=== PATIENT | male | born 1935 | race Caucasian/White ===

== ENCOUNTER 2021-10-23 17:08 | Inpatient (IN) | payer MEDICARE, SELFPAY ==
--- NOTE | 2021-10-23 | ECG_ITS ---
Test Reason : DIZZINESS Blood Pressure : / mmHG Vent. Rate : 067 BPM Atrial Rate : 043 BPM P-R Int : 000 ms QRS Dur : 184 ms QT Int : 492 ms P-R-T Axes : 000 026 102 degrees QTc Int : 519 ms Ventricular-paced rhythm Possible underlying AF Abnormal ECG No previous ECGs available Referred By: Quintin Rome Electronically Signed By:DWAYNE MARION MD
--- NOTE | ~2021-10-23 | MR_ITS ---
MRI OF THE BRAIN WITHOUT IV CONTRAST INDICATION: Dizziness/ataxia/posterior stroke. COMPARISON: Head CT 10/24/2021. TECHNIQUE: Multiplanar multisequence MR imaging of the brain was obtained without IV contrast. FINDINGS: There are a few small acute to subacute appearing infarcts within the anterior right frontal white matter on image 25 of series 4 in the posterior right periventricular white matter on image 21 of series 4. There may be a few punctate acute to subacute infarcts within the high right middle frontal gyrus as well. No mass effect and no hemorrhagic transformation. There is global cerebral volume loss, there is moderate chronic microangiopathy, and there are chronic infarcts within the left cerebellum in the basal ganglia bilaterally. 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 There is a more prominent focus of susceptibility signal within the left frontal lobe on image 19 of series 6 that could reflect a focus of chronic hemosiderin staining or a small cavernoma. There is no hydrocephalus, extra-axial surface collection, or herniation. The major flow voids at the skull base are preserved. There is no intracranial hemorrhage on the gradient recalled echo acquisition. The midline structures are normal. The cerebellar tonsils are normally positioned. The cerebellum and brainstem are normal. The craniocervical junction is normal. Osseous marrow signal intensity is homogenous. There are partial right parotidectomy changes. There is a diffusion restricting cyst within the inferior aspect of the right auricle that could reflect a sebaceous cyst or other complex cyst. MR/MR head/brain wo con IMPRESSION: - There are a few small acute to subacute appearing infarcts within the anterior right frontal white matter on image 25 of series 4 in the posterior right periventricular white matter on image 21 of series 4. There may be a few punctate acute to subacute infarcts within the high right middle frontal gyrus as well. No mass effect and no hemorrhagic transformation. - There is global cerebral volume loss, there is moderate chronic microangiopathy, and there are chronic infarcts within the left cerebellum in the basal ganglia bilaterally. 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 There is a more prominent focus of susceptibility signal within the left frontal lobe on image 19 of series 6 that could reflect a focus of chronic hemosiderin staining or a small cavernoma. - There is a diffusion restricting cyst within the inferior aspect of the right auricle that could reflect a sebaceous cyst or other complex cyst. Covering provider paged with these findings at 8:57 AM on 10/28/2021.
--- NOTE | ~2021-10-23 | CT_ITS ---
EXAMINATION: CT HEAD WITHOUT CONTRAST CLINICAL INFORMATION: Dizziness since yesterday. COMPARISON: CT brain 10/23/2021. TECHNIQUE: Contiguous axial imaging was performed from the skull base to vertex without intravenous administration of contrast. This CT examination was performed using dose optimization techniques as appropriate, variously including the following: *Automated exposure control *Adjustment of mA and/or kV according to patient size (this includes techniques or standardized protocols for targeted exams where dose is matched to indication/reason for exam; i.e. extremities or head) *Use of iterative reconstruction technique DLP: 679 mGy-cm FINDINGS: There is no evidence of acute intra-axial, extra-axial bleed, masses or midline shift. There is no acute infarction evolution. There is hypodensity seen in bilateral internal capsule likely a lacunar infarction. The ventricles are symmetrical in size and configuration with mild enlargement. There is mild periventricular hypodensity in both cerebral hemispheres without mass effect. Bone windows reveal no calvarial abnormality. Bilateral paranasal sinuses and mastoid air cells are well aerated. There is no scalp soft tissue swelling seen. CT/CT head/brain wo con IMPRESSION: No acute intracranial process seen Small lacunar infarction bilateral internal capsule is unchanged to previous exam 10/23/2021. There is chronic cerebral volume loss.
--- NOTE | ~2021-10-23 | CT_ITS ---
EXAMINATION: CT HEAD WITHOUT CONTRAST CLINICAL INFORMATION: Slurred speech. COMPARISON: None. TECHNIQUE: Contiguous axial imaging was performed from the skull base to vertex without intravenous contrast. This CT examination was performed using dose optimization techniques as appropriate, variously including the following: * Automated exposure control * Adjustment of mA and/or kV according to patient size (this includes techniques or standardized protocols for targeted exams where dose is matched to indication/reason for exam; i.e. extremities or head) Use of iterative reconstruction technique DLP: 708 mGy-cm. FINDINGS: There is no evidence of acute intracranial hemorrhage or territorial infarction. No abnormal mass effect or midline shift is seen. [place] to white matter differentiation is well preserved. No extra-axial fluid collections are identified. No hydrocephalus. Proportional prominence of the ventricles and sulcal spaces is consistent with moderate volume loss. Patchy periventricular and deep white matter hypoattenuation is consistent with moderate small vessel ischemic changes. Right basal ganglia and left internal capsule chronic lacunar infarcts. The osseous structures and soft tissues are normal. The mastoid air cells and visualized portions of the paranasal sinuses are well aerated. CT/CT head/brain wo con IMPRESSION: No acute intracranial pathology. Chronic volume loss with small vessel ischemic changes. Chronic lacunar infarcts. This critical result was discussed with ANAYELI Ryder by telephone at 10/23/2021 6:34 PM and it was ascertained that the content and urgency of the report was understood at the time of direct communication.
--- NOTE | ~2021-10-23 | CT_ITS ---
EXAMINATION: CT ANGIOGRAM NECK WITH CONTRAST CT ANGIOGRAM BRAIN WITH CONTRAST CLINICAL INFORMATION: Dizzy. Gait disturbance. COMPARISON: Head CT 10/23/2021. TECHNIQUE: Test bolus sequences followed by intravenous administration 100 mL of Omnipaque 350. Helical imaging was performed in the axial plane from the thoracic inlet to the skull vertex. Delayed postcontrast imaging of the head was also performed. The data was processed at the human performance technologist workstation for generation of MIP sequences. Angled MIPs and volume rendered reformatted images were also generated at an offline 3D workstation. Stenoses are assessed in accordance with NASCET criteria unless otherwise indicated. This CT examination was performed using dose optimization techniques as appropriate, variously including the following: *Automated exposure control *Adjustment of mA and/or kV according to patient size (this includes techniques or standardized protocols for targeted exams where dose is matched to indication/reason for exam; i.e. extremities or head) *Use of iterative reconstruction technique DLP: 1669 mGy-cm FINDINGS: Head CT: There is no intracranial hemorrhage, large acute infarction, or mass lesion. There is moderate degree of diffuse brain parenchymal volume loss with commensurate prominence of the ventricles and sulci. Hypoattenuation in the cerebral white matter is compatible with mild to moderate chronic microangiopathy. Chronic lacunar infarcts are seen in the bilateral basal ganglia and left cerebellum. The dural venous sinuses are normally opacified. The visualized paranasal sinuses and mastoid air cells are clear. Neck CTA: The ascending aorta is ectatic measuring up to 4.5 cm. Atheromatous changes are seen involving the aortic arch. The great vessel origins are patent. Changes of coronary artery bypass grafting is noted. Atheromatous changes are seen at the right carotid bifurcation without significant stenosis of the proximal right internal carotid artery. The cervical segment of the right ICA is patent. Atheromatous changes are also seen at the left carotid bifurcation extending along the proximal left internal carotid artery resulting in severe stenosis estimated as greater than 90% with short segment threadlike flow noted. More distally, the cervical left ICA demonstrates normal caliber and is patent. Both vertebral arteries demonstrate calcific plaque and stenosis at its origin. The vertebral arteries are otherwise patent. Head CTA: Carotid siphon calcifications are seen bilaterally without high-grade stenosis. The right A1 segment is dominant. The ACAs are patent. The MCAs are patent. The intradural vertebral arteries and basilar artery are patent with some atheromatous calcifications noted. Both assembly mechanic are patent. No aneurysm is seen. Non-vascular findings: There is a hyperenhancing mass within the left parotid tail measuring up to 1.3 cm. The cervical soft tissues are otherwise within normal limits. No consolidation is seen within the upper lungs. Degenerative changes are seen in the spine. Sequela of anterior cervical discectomy and fusion is seen at C5-C6 and C6-C7. CT/CT angio head neck IMPRESSION: CT head: No intracranial hemorrhage or large acute infarction. Chronic lacunar infarcts in the bilateral basal ganglia and left cerebellum. Background changes of chronic microangiopathy and brain parenchymal volume loss. 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 No additional high-grade narrowing in the neck arteries. CTA head: No proximal vessel occlusion or significant stenosis. 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 This could represent an epithelial lesion or avascular lesion. Consider nonemergent ENT follow-up. This critical result was discussed with ANAYELI Ryder on 10/23/2021 8:42 PM, and it was ascertained that the content and urgency of the report was understood at the time of direct communication.
--- NOTE | ~2021-10-23 | XR_ITS ---
EXAMINATION: XR CHEST CLINICAL INFORMATION: Dizziness COMPARISON: None TECHNIQUE: Frontal view of the chest was obtained. FINDINGS: Lungs are well expanded and grossly clear as seen on this single radiographic projection. No consolidation, edema or pleural effusion. Cardiac silhouette is normal in size, status post placement of dual chamber pacemaker. Sternotomy wires are intact. Thoracic aorta is calcified. Bones are diffusely osteopenic. There is likely an old bone island of the proximal left humerus. There is surgical change from anterior cervical spine fusion hardware placement in the lower cervical spine. XR/XR chest 1V IMPRESSION: No acute cardiopulmonary abnormality.
[2021-10-23 17:21] VITALS: BP 173/99; PULSE 90; BMI 30.2
--- NOTE | 2021-10-23 17:28 | ED_ITS ---
HPI - Dizziness General Chief Complaint: Dizziness Stated Complaint: DIZZINESS Time Seen by Provider: 10/23/21 17:12 Source: patient Mode of arrival: EMS Limitations: no limitations History of Present Illness HPI Narrative: 86-year-old male presents with dizziness that started 10:30 a.m. this morning. The dizziness is positional, and he has been nauseous with the unsteady gait. The dizziness is intermittent. Patient has not vomited. States this came on suddenly, and when he sits up or stands up he becomes dizzy. He fell against the wall but did not fall to the ground and did not hit his head. Patient is on Eliquis with a pacemaker. Endorses 2 drinks daily. Lives alone. No chest pain, no shortness of breath No past medical history of stroke that he endorses. He has not been ill, he was in his normal state of health prior to today. He cannot characterize the dizziness as either lightheadedness or as vertigo This has never happened to him before MD elicited complaint: dizziness Onset (ago): hour(s) (8) Timing: sudden onset Severity: severe Description: room spinning , lightheadedness, off-balance and difficulty walking Context: change in body position History of similar symptoms: No Exacerbating factors: movement/ambulation and change in body position Associated symptoms: nausea Associated neuro symptoms: gait ataxia Related Data Home Medications Medication Instructions Recorded Confirmed allopurinol 100 mg tablet 200 mg PO DAILY 10/23/21 10/23/21 amlodipine 5 mg tablet 2.5 mg PO BEDTIME 10/23/21 10/23/21 apixaban 2.5 mg tablet (Eliquis) 2.5 mg PO BID 10/23/21 10/23/21 aspirin 81 mg tablet,delayed 81 mg PO DAILY 10/23/21 10/23/21 release atorvastatin 40 mg tablet 40 mg PO BEDTIME 10/23/21 10/23/21 cholecalciferol (vitamin D3) 50 50 mcg PO DAILY 10/23/21 10/23/21 mcg (2,000 unit) tablet lorazepam 1 mg tablet 1 mg PO BEDTIME 10/23/21 10/23/21 magnesium oxide 400 mg (241.3 mg 400 mg PO DAILY 10/23/21 10/23/21 magnesium) tablet melatonin 5 mg tablet 5 mg PO BEDTIME PRN 10/23/21 10/23/21 omeprazole 20 mg capsule,delayed 20 mg PO DAILY 10/23/21 10/23/21 release tamsulosin 0.4 mg capsule 0.4 mg PO BEDTIME 10/23/21 10/23/21 thiamine HCl (vitamin B1) 100 mg 100 mg PO DAILY 10/23/21 10/23/21 tablet Allergies Allergy/AdvReac Type Severity Reaction Status Date / Time acetaminophen [From Percocet] Allergy Unknown Verified 10/23/21 17:20 bee pollen [bee stings] Allergy Unknown Verified 10/23/21 17:20 carvedilol Allergy Unknown Verified 10/23/21 17:20 citalopram Allergy Unknown Verified 10/23/21 17:20 colesevelam [From WelChol] Allergy Unknown Verified 10/23/21 17:20 fluoxetine Allergy Unknown Verified 10/23/21 17:20 gabapentin Allergy Unresponsiv Verified 10/23/21 17:20 e lactose Allergy Unknown Verified 10/23/21 17:20 lisinopril Allergy Unknown Verified 10/23/21 17:20 mirtazapine [From Remeron] Allergy Unknown Verified 10/23/21 17:20 oxycodone [From Percocet] Allergy Unknown Verified 10/23/21 17:20 venlafaxine [From Effexor] Allergy Unknown Verified 10/23/21 17:20 Review of Systems Constitutional: Constitutional: Denies body ache(s), Denies chills, Denies fatigue, Denies fever(s), Denies headache(s), Denies malaise and Denies weakness Eyes: Eyes: Denies blurry vision, Denies change in vision, Denies diplopia and Denies loss of vision ENT: Reports vertigo, Reports dizziness, Denies otalgia, Denies headache(s), Denies mouth pain, Denies post nasal drip, Denies sinus pain, Denies sinus pressure, Denies sore throat and Denies throat swelling Cardiovascular: Cardiovascular: Denies chest pain, Denies syncope, Denies leg edema, Reports lightheadedness, Denies Loss of Consciousness, Denies palpitatio ns and Denies dyspnea Respiratory: Respiratory: Denies chest congestion, Denies cough and Denies dyspnea Gastrointestinal: Gastrointestinal: Denies abdominal pain, Denies hematochezia, Denies constipation, Denies diarrhea, Reports nausea and Denies vomiting Genitourinary: Genitourinary: Reports no additional male genitourinary complaints Musculoskeletal: Musculoskeletal: Reports no additional musculoskeletal complaints Integumentary/Breasts: Skin/Breast: Denies erythema, Denies rash and Denies wounds Neurologic: Denies Abnormal speech present, Denies confusion, Reports vertigo, Reports dizziness, Denies syncope, Denies headache(s), Denies loss of vision, Denies Sensory deficit (Neuro) and Denies weakness Psychiatric: Psychiatric: Denies anxiety, Denies confusion and Denies depression Endocrine: Endocrine: Denies fatigue and Denies palpitations Allergic/Immunologic: Allergic/Immunologic: Denies throat swelling PMFSH Past Medical History Medical History (Updated 10/24/21 @ 00:56 by ANAYELI Ryder) Diabetes Pacemaker Social History Social History Alcohol intake: unknown Patient Tobacco Use Status: Tobacco use Unknown Use of substances other than those prescribed or required for medical reasons: No Advance Directives: No Advance Directives Information Provided: Yes Physical Exam Vital Signs: Vital Signs: Last Vital Signs Temp 97.9 F 10/23/21 22:00 Pulse 76 10/24/21 00:30 Resp 18 10/24/21 00:30 BP 152/86 H 10/24/21 00:30 Pulse Ox 95 10/24/21 00:30 BMI result Body Mass Index 30.2 Const: General: no acute distress, well developed, alert and awake; No confusion Nutritional Appearance: well nourished Orientation/consciousness: patient oriented x3 and No confusion Limitations: no limitations HENMT: Head: Yes normal to inspection, Yes normocephalic and Yes atraumatic Ears: hearing grossly normal bilaterally, external ears normal, TM's normal bilaterally and EAC's normal General nose exam: Normal external nose present Face and sinus: Yes normal facial exam and Yes sinuses nontender Mouth: Normal oral and palatal mucosa present Throat: Yes posterior oropharynx normal Eyes: Conjunctivae: conjunctivae normal Pupils: Equal, round and reactive pupils present EOM: EOMs intact bilaterally and No Nystagmus present Neck: Neck: Yes full ROM, Yes no lymphadenopathy and Yes supple Resp: Effort & Inspection: normal respiratory effort and able to speak in complete sentences Auscultation: clear to auscultation bilaterally, no crackles, no rales, no rhonchi and no wheezes Cardio: Rate: regular rate Rhythm: regular rhythm Heart sounds: S1 normal heart sound present and S2 normal heart sound present GI: Inspection: Yes normal to inspection Palpation (GI): Soft to palpation, nontender, no guarding and not rigid Percussion: Yes normal to percussion Auscultation: normal bowel sounds Skin: Other: Skin tear right elbow Neuro: General: patient oriented x3, No confusion and Unable to assess gait Cranial nerves: Yes CN's II-XII intact bilaterally, Yes Facial sensation inta ct/muscles of mastication intact, Yes Equal, round and reactive pupils present, Yes Bilaterally intact EOM present, Yes Nystagmus not present, Yes Normal facial strength present, Yes Midline tongue present, Yes Ability to bilaterally rotate head present, Yes Ability to bilaterally elevate shoulders present and No Nystagmus present Cognition (Neuro): normal cognition Speech: No Abnormal speech present Gait exam (Neuro): Unable to assess gait Motor exam (neuro): 5/5 motor strength present throughout Sensory Exam: No Sensory deficit (Neuro) Coordination: [id number] test normal Romberg Test: Negative Pupils: Normal pupillary reactivity/response: bilateral Extrem: General: Yes normal to inspection and Yes full ROM Psych: Appearance: grossly normal Affect: normal affect Attitude: cooperative Thought process: Normal thought process present Course Course Course Narrative: 86-year-old male presents with sudden onset of intermittent positional dizziness that started 10:30 this morning Patient is so dizzy he is unable to walk. Will get labs, CT head, CTA, EKG, troponin. Reevaluation(s) Reevaluation #1: CT/CT head/brain wo con IMPRESSION: No acute intracranial pathology. Chronic volume loss with small vessel ischemic changes. Chronic lacunar infarcts. Chest x-ray negative Urine negative EKG shows ventricular pacing, troponin is 24.7. Labs remarkable only for platelet count of 102 and bili 2.4. Will repeat troponin at the 3 hour cheko. Awaiting CTA results Reevaluation #2: CT/CT angio head neck IMPRESSION: CT head: No intracranial hemorrhage or large acute infarction. Chronic lacunar infarcts in the bilateral basal ganglia and left cerebellum. Background changes of chronic microangiopathy and brain parenchymal volume loss. ? 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 No additional high-grade narrowing in the neck arteries. ? CTA head: No proximal vessel occlusion or significant stenosis. ? 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 This could represent an epithelial lesion or avascular lesion. Consider nonemergent ENT follow-up. Discussed with Dr Rome, who suggested we consult Neurology, as pt needs an MRI for possible posterior stroke symptoms, and MRI has left here for the day. Reevaluation #3: Spoke with neurologist, who stated patient needs an MRI. Stated that with the cerebellar infarct there can be swelling and patient either needs an MRI tonight. Calling nursing supervisor electric to see if we can get MRI here today. Cannot get MRI here today. Called [facility] and spoke with neurologist there who says that the [facility] is closed to transfers Additional Reevaluation(s): Spoke to neurologist at [facility], who stated that they are not accepting transfers. Repeat troponin is 22, no delta change Spoke to neurology at [facility] who refused patient. [place] tried 8 different hospitals, cannot transfer patient for MRI. Discussed with Dr Rome and Dr Han, pt will be physician obs here in ED, in the morning will get MRI. Signed pt out to Dr Han. MDM - Dizziness Lab Data Result diagrams: 10/23/21 18:25 10/23/21 18:25 Labs: Lab Results 10/23/21 10/23/21 10/23/21 Range/Units 17:18 18:25 18:25 WBC 7.6 (4.8-10.8) X10*3/uL RBC 4.27 L (4.60-5.80) X10*6/uL Hgb 14.4 (14.0-18.0) g/dl Hct 41.5 L (42.0-52.0) % MCV 97.2 (80.0-98.0) fL MCH 33.7 H (27.0-33.0) pg MCHC 34.7 (31.0-36.0) g/dl RDW 13.5 (11.0-16.0) % Plt Count 102 L (160-400) X10*3/uL MPV 10.4 (9.4-12.4) fL Immature Gran % (Auto) 0.8 H (0.0-0.4) % Neut % (Auto) 69.1 (45-73) % Lymph % (Auto) 20.2 (20-40) % [place] % (Auto) 8.8 (2-11) % Eos % (Auto) 0.7 (0-4) % Baso % (Auto) 0.4 (0-2) % Lymph # (Auto) 1.5 (1.2-4.9) X10*3/uL [place] # (Auto) 0.7 (0.1-1.2) X10*3/uL Eos # (Auto) 0.1 (0.0-0.4) X10*3/uL Baso # (Auto) 0.0 (0.0-0.2) X10*3/uL Abs Immat Gran (auto) 0.06 H (0.00-0.03) X10*3/uL Absolute Neuts (auto) 5.3 (2.0-8.3) x10*3/uL Absolute Nucleated RBC 0.000 (0.0-0.012) X10*3/uL Nucleated RBC % (auto) 0.0 (0.0-0.2) /100WBC PT (9.9-13.0) SEC INR (0.9-1.1) APTT (24.1-38.0) SEC Sodium 139 (135-145) mmol/L Potassium 3.9 (3.3-5.1) mmol/L Chloride 105 (96-108) mmol/L Carbon Dioxide 26 (22-29) mmol/L Anion Gap 12 (12-20) BUN 13 (9-16) mg/dL Creatinine 1.02 (0.5-1.4) mg/dL Estim Creat Clear Calc 58.7 Estimated GFR > 60 POC Glucose 124 H (60-115) mg/dL Random Glucose 139 H (60-115) mg/dL Calcium 8.8 (8.4-10.2) mg/dL Magnesium 1.8 (1.6-2.6) mg/dL Total Bilirubin 2.4 H (0.0-1.0) mg/dL AST 18 (5-37) U/L ALT 26 (0-40) U/L Alkaline Phosphatase 86 (39-117) U/L Total Creatine Kinase 28 L (38-174) U/L Troponin I High Sens (<3.5-35.0) ng/L Total Protein 6.0 L (6.5-8.0) g/dL Albumin 3.4 L (3.5-5.0) g/dL Urine Color Urine Appearance Urine pH (5.0-8.0) Ur Specific [place] (1.005-1.025) Urine Protein (NEG-TRACE) MG/DL Urine Glucose (UA) (NEG) MG/DL Urine Ketones (NEG) MG/DL Urine Blood (NEG) Urine Nitrite (NEG) Ur Leukocyte Esterase (NEG) Urine RBC (0) /HPF Urine WBC (0-4) /HPF Ur Squamous Epith Cells /LPF Urine Bacteria /LPF Ethyl Alcohol mg/dL COVID-19 ([facility]) (Negative) COVID-19 Clin Com 10/23/21 10/23/21 10/23/21 Range/Units 18:25 18:25 18:25 WBC (4.8-10.8) X10*3/uL RBC (4.60-5.80) X10*6/uL Hgb (14.0-18.0) g/dl Hct (42.0-52.0) % MCV (80.0-98.0) fL MCH (27.0-33.0) pg MCHC (31.0-36.0) g/dl RDW (11.0-16.0) % Plt Count (160-400) X10*3/uL MPV (9.4-12.4) fL Immature Gran % (Auto) (0.0-0.4) % Neut % (Auto) (45-73) % Lymph % (Auto) (20-40) % [place] % (Auto) (2-11) % Eos % (Auto) (0-4) % Baso % (Auto) (0-2) % Lymph # (Auto) (1.2-4.9) X10*3/uL [place] # (Auto) (0.1-1.2) X10*3/uL Eos # (Auto) (0.0-0.4) X10*3/uL Baso # (Auto) (0.0-0.2) X10*3/uL Abs Immat Gran (auto) (0.00-0.03) X10*3/uL Absolute Neuts (auto) (2.0-8.3) x10*3/uL Absolute Nucleated RBC (0.0-0.012) X10*3/uL Nucleated RBC % (auto) (0.0-0.2) /100WBC PT 12.9 (9.9-13.0) SEC INR 1.1 (0.9-1.1) APTT 30.9 (24.1-38.0) SEC Sodium (135-145) mmol/L Potassium (3.3-5.1) mmol/L Chloride (96-108) mmol/L Carbon Dioxide (22-29) mmol/L Anion Gap (12-20) BUN (9-16) mg/dL Creatinine (0.5-1.4) mg/dL Estim Creat Clear Calc Estimated GFR POC Glucose (60-115) mg/dL Random Glucose (60-115) mg/dL Calcium (8.4-10.2) mg/dL Magnesium (1.6-2.6) mg/dL Total Bilirubin (0.0-1.0) mg/dL AST (5-37) U/L ALT (0-40) U/L Alkaline Phosphatase (39-117) U/L Total Creatine Kinase (38-174) U/L Troponin I High Sens 24.7 (<3.5-35.0) ng/L Total Protein (6.5-8.0) g/dL Albumin (3.5-5.0) g/dL Urine Color Urine Appearance Urine pH (5.0-8.0) Ur Specific [place] (1.005-1.025) Urine Protein (NEG-TRACE) MG/DL Urine Glucose (UA) (NEG) MG/DL Urine Ketones (NEG) MG/DL Urine Blood (NEG) Urine Nitrite (NEG) Ur Leukocyte Esterase (NEG) Urine RBC (0) /HPF Urine WBC (0-4) /HPF Ur Squamous Epith Cells /LPF Urine Bacteria /LPF Ethyl Alcohol < 10 mg/dL COVID-19 ([facility]) (Negative) COVID-19 Clin Com 10/23/21 10/23/21 10/23/21 Range/Units 19:00 21:31 22:05 WBC (4.8-10.8) X10*3/uL RBC (4.60-5.80) X10*6/uL Hgb (14.0-18.0) g/dl Hct (42.0-52.0) % MCV (80.0-98.0) fL MCH (27.0-33.0) pg MCHC (31.0-36.0) g/dl RDW (11.0-16.0) % Plt Count (160-400) X10*3/uL MPV (9.4-12.4) fL Immature Gran % (Auto) (0.0-0.4) % Neut % (Auto) (45-73) % Lymph % (Auto) (20-40) % [place] % (Auto) (2-11) % Eos % (Auto) (0-4) % Baso % (Auto) (0-2) % Lymph # (Auto) (1.2-4.9) X10*3/uL [place] # (Auto) (0.1-1.2) X10*3/uL Eos # (Auto) (0.0-0.4) X10*3/uL Baso # (Auto) (0.0-0.2) X10*3/uL Abs Immat Gran (auto) (0.00-0.03) X10*3/uL Absolute Neuts (auto) (2.0-8.3) x10*3/uL Absolute Nucleated RBC (0.0-0.012) X10*3/uL Nucleated RBC % (auto) (0.0-0.2) /100WBC PT (9.9-13.0) SEC INR (0.9-1.1) APTT (24.1-38.0) SEC Sodium (135-145) mmol/L Potassium (3.3-5.1) mmol/L Chloride (96-108) mmol/L Carbon Dioxide (22-29) mmol/L Anion Gap (12-20) BUN (9-16) mg/dL Creatinine (0.5-1.4) mg/dL Estim Creat Clear Calc Estimated GFR POC Glucose (60-115) mg/dL Random Glucose (60-115) mg/dL Calcium (8.4-10.2) mg/dL Magnesium (1.6-2.6) mg/dL Total Bilirubin (0.0-1.0) mg/dL AST (5-37) U/L ALT (0-40) U/L Alkaline Phosphatase (39-117) U/L Total Creatine Kinase (38-174) U/L Troponin I High Sens 22.9 (<3.5-35.0) ng/L Total Protein (6.5-8.0) g/dL Albumin (3.5-5.0) g/dL Urine Color YELLOW Urine Appearance CLEAR Urine pH 6.5 (5.0-8.0) Ur Specific [place] 1.020 (1.005-1.025) Urine Protein 1+ H (NEG-TRACE) MG/DL Urine Glucose (UA) NEG (NEG) MG/DL Urine Ketones 15 (NEG) MG/DL Urine Blood NEG (NEG) Urine Nitrite NEG (NEG) Ur Leukocyte Esterase NEG (NEG) Urine RBC 0 (0) /HPF Urine WBC 0 (0-4) /HPF Ur Squamous Epith Cells NONE /LPF Urine Bacteria TRACE /LPF Ethyl Alcohol mg/dL COVID-19 ([facility]) Negative (Negative) COVID-19 Clin Com See Note ECG Data Interpretation: Paced ventricular rate at 67. QRS 24. QTC 519, normal axis. Discharge Plan Discharge Clinical Impression: Cerebrovascular accident Prescriptions: No Action atorvastatin 40 mg tablet 40 mg PO BEDTIME RF: 0 thiamine HCl (vitamin B1) 100 mg tablet 100 mg PO DAILY RF: 0 amlodipine 5 mg tablet 2.5 mg PO BEDTIME RF: 0 allopurinol 100 mg tablet 200 mg PO DAILY RF: 0 magnesium oxide 400 mg (241.3 mg magnesium) tablet 400 mg PO DAILY RF: 0 tamsulosin 0.4 mg capsule 0.4 mg PO BEDTIME RF: 0 omeprazole 20 mg capsule,delayed release(DR/EC) 20 mg PO DAILY RF: 0 lorazepam 1 mg tablet 1 mg PO BEDTIME RF: 0 Eliquis 2.5 mg tablet 2.5 mg PO BID RF: 0 aspirin [Aspir-81] 81 mg Tablet,Delayed Release (Dr/Ec) 81 mg PO DAILY RF: 0 melatonin 5 mg Tablet 5 mg PO BEDTIME PRN (Reason: Insomnia) RF: 0 cholecalciferol (vitamin D3) 50 mcg (2,000 unit) Tablet 50 mcg PO DAILY RF: 0
[2021-10-23 17:31] LABS: Glucose, Whole Blood 124 mg/dL (60-115)
[2021-10-23] MEDS: 0.9 % Sodium Chloride 500 ML IV (17:34)
[2021-10-23] MEDS: ondansetron HCL 4 MG/2 ML VIAL IVPUSH (17:43)
[2021-10-23 17:51] VITALS: PULSE 66
--- NOTE | 2021-10-23 17:54 | PC.NURSE ---
Pt arrives via EMS from home for complaints of dizziness and unsteady gait. He states it has been for a few days. His neighbor is an RN and suggested he get checked out. Pt is Alert and oriented x [address] Small skin tear to R elbow, LCA, abd soft, non tender but c/o nausea. +PERRLA. IV established, labs sent, medicated as per MAR orders, CXR completed, pt to CT scan and back. Awaiting results. Will continue to monitor.
[2021-10-23 18:31] LABS: MANUAL DIFF FLAG NO
[2021-10-23 18:34] LABS: Basophils Percent Auto 0.4 % (0-2); Eosinophils Absolute Auto 0.1 X10*3/uL (0.0-0.4); Eosinophils Percent Auto 0.7 % (0-4); Hematocrit 41.5 % (42.0-52.0); Hemoglobin 14.4 g/dl (14.0-18.0); Imm Gran Abs Auto 0.06 X10*3/uL (0.00-0.03); Imm Gran Pct Auto 0.8 % (0.0-0.4); Lymphocytes Absolute Auto 1.5 X10*3/uL (1.2-4.9); Lymphocytes Percent Auto 20.2 % (20-40); Mean Corpuscular HGB Conc 34.7 g/dl (31.0-36.0); Mean Corpuscular Hemoglobin 33.7 pg (27.0-33.0); Mean Corpuscular Volume 97.2 fL (80.0-98.0); Mean Platelet Volume 10.4 fL (9.4-12.4); Monocytes Absolute Auto 0.7 X10*3/uL (0.1-1.2); Monocytes Percent Auto 8.8 % (2-11); Neutrophils Absolute Auto 5.3 x10*3/uL (2.0-8.3); Neutrophils Percent Auto 69.1 % (45-73); Platelet Count 102 X10*3/uL (160-400); Red Blood Count 4.27 X10*6/uL (4.60-5.80); Red Cell Distribution Width 13.5 % (11.0-16.0); White Blood Count 7.6 X10*3/uL (4.8-10.8)
[2021-10-23 18:39] LABS: INTERNATIONAL NORM RATIO 1.1 (0.9-1.1); Prothrombin Time 12.9 SEC (9.9-13.0)
[2021-10-23 18:41] LABS: Partial Thromboplastin Time 30.9 SEC (24.1-38.0)
[2021-10-23 18:45] LABS: Ethanol < 10 mg/dL
[2021-10-23 18:47] LABS: Alanine Aminotransferase 26 U/L (0-40); Albumin Level 3.4 g/dL (3.5-5.0); Alkaline Phosphatase 86 U/L (39-117); Anion Gap 12 (12-20); Aspartate Amino Transferase 18 U/L (5-37); Bilirubin Total 2.4 mg/dL (0.0-1.0); Blood Urea Nitrogen 13 mg/dL (9-16); Calcium 8.8 mg/dL (8.4-10.2); Carbon Dioxide 26 mmol/L (22-29); Chloride 105 mmol/L (96-108); Creatinine Clr Calc Pharmacy 58.7; Estimated Glomerular Filt Rate > 60; Glucose Random 139 mg/dL (60-115); Magnesium 1.8 mg/dL (1.6-2.6); Potassium 3.9 mmol/L (3.3-5.1); Sodium 139 mmol/L (135-145)
[2021-10-23 18:51] LABS: Troponin-I High Sensitivity 24.7 ng/L (<3.5-35.0)
[2021-10-23 19:10] LABS: Appearance Urine CLEAR; Color Urine YELLOW; Glucose Urine UA NEG (NEG); Leukocyte Esterase Urine NEG (NEG); Nitrite Urine NEG (NEG); PH 6.5 (5.0-8.0); UACC Culture Trigger NO; Urine Blood NEG (NEG); Urine Ketones 15 MG/DL (NEG); Urine Protein 1+ MG/DL (NEG-TRACE)
[2021-10-23 19:23] LABS: Bacteria Urine TRACE /LPF; RBC Urine 0 /HPF (0); WBC Urine 0 /HPF (0-4)
[2021-10-23 19:41] VITALS: BP 167/75; PULSE 59; RESP 16; O2SAT 97
[2021-10-23] MEDS: iohexoL 350 MG/ML 100 ML INFUS..BTL 70 ML IV (19:43)
[2021-10-23 20:00] VITALS: BP 162/79; PULSE 63; RESP 14; TEMP 36.6; O2SAT 96
[2021-10-23] MEDS: iohexoL 350 MG/ML 100 ML INFUS..BTL IV (20:16)
[2021-10-23 21:58] LABS: Troponin-I High Sensitivity 22.9 ng/L (<3.5-35.0)
[2021-10-23 22:00] VITALS: BP 178/77; PULSE 79; RESP 17; TEMP 36.6; O2SAT 96
--- NOTE | 2021-10-23 22:23 | PHA.MEDREC ---
Pharmacy Consult ? Medication Reconciliation Pharmacy has completed the medication reconciliation.
[2021-10-23 22:28] LABS: COVID-19 Test Negative (Negative)
[2021-10-23] MEDS: Aspirin 81 MG TAB.CHEW 324 MG PO (23:20)
[2021-10-23 23:21] VITALS: BP 175/88; PULSE 78; RESP 17; O2SAT 97
[2021-10-24] VITALS (9 sets, daily range): BP systolic 140–165; BP diastolic 68–88; PULSE 60–78; RESP 13–20; TEMP 36.4–36.9; O2SAT 92–97
[2021-10-24] MEDS: LORazepam 1 MG TABLET PO ×2 (00:07→22:41)
--- NOTE | 2021-10-24 03:03 | PC.NURSE ---
Pt asleep on stretcher, RR even and unlabored on RA, VSS. Pt is awaiting MRI in AM. Pt will need MRI screening form to be completed, however as pt is asleep at this time, this RN will not wake pt to disrupt rest. Pt stretcher in lowest locked position, rails raised, call real within reach. Condom cath placed on pt as pt expressed frustration with his frequent need to ring call real for assistance to standing to use urinal. Pt verbalized appreciation for condom cath. Condom cath draining appropriately.
[2021-10-24 08:09] LABS: Glucose, Whole Blood 114 mg/dL (60-115)
--- NOTE | 2021-10-24 11:22 | PM.NEUROCN ---
History of Present Illness Data of Consult Service Date: 10/24/21 Primary Care Provider: Michael Zafar MD [facility] Reason for consult: Acute onset of dizziness, fall and ataxia This is an 86 years old male who came in yesterday approx 10 hrs after onset of symptoms of unsteady gait and feeling dizzy and falling. He is on Eliquis and has a pacemaker so MRI was deferred till arrangements can be made to reprogram it. 2 CT scans do not show acute stroke. Has old left cerebellar and large lacunar strokes in th ebasal ganglia. CTA shows 90 % stenosis of left ICA in the neck Review of Systems Constitutional: Constitutional: Denies body ache(s), Denies chills, Denies fatigue, Denies fever(s), Denies headache(s), Denies malaise and Denies weakness Eyes: Eyes: Denies blurry vision, Denies change in vision, Denies diplopia and Denies loss of vision ENT: Reports vertigo, Reports dizziness, Denies otalgia, Denies headache(s), Denies mouth pain, Denies post nasal drip, Denies sinus pain, Denies sinus pressure, Denies sore throat and Denies throat swelling Cardiovascular: Cardiovascular: Denies chest pain, Denies syncope, Denies leg edema, Reports lightheadedness, Denies Loss of Consciousness, Denies palpitations and Denies dyspnea Respiratory: Respiratory: Denies chest congestion, Denies cough and Denies dyspnea Gastrointestinal: Gastrointestinal: Denies abdominal pain, Denies hematochezia, Denies constipation, Denies diarrhea, Reports nausea and Denies vomiting Genitourinary: Genitourinary: Reports no additional male genitourinary complaints Musculoskeletal: Musculoskeletal: Reports no additional musculoskeletal complaints Integumentary/Breasts: Skin/Breast: Denies erythema, Denies rash and Denies wounds Neurologic: Denies Abnormal speech present, Denies confusion, Reports vertigo, Reports dizziness, Denies syncope, Denies headache(s), Denies loss of vision, Denies Sensory deficit (Neuro) and Denies weakness Psychiatric: Psychiatric: Denies anxiety, Denies confusion and Denies depression Endocrine: Endocrine: Denies fatigue and Denies palpitations Allergic/Immunologic: Allergic/Immunologic: Denies throat swelling PMFSH Past Medical History Medical History (Updated 10/24/21 @ 11:32 by Chan Rodriguez MD) Diabetes Pacemaker Social History Social History Alcohol intake: unknown Patient Tobacco Use Status: Tobacco use Unknown Use of substances other than those prescribed or required for medical reasons: No Advance Directives: No Advance Directives Information Provided: Yes Meds Allergies Allergy/AdvReac Type Severity Reaction Status Date / Time acetaminophen [From Percocet] Allergy Unknown Verified 10/23/21 17:20 bee pollen [bee stings] Allergy Unknown Verified 10/23/21 17:20 carvedilol Allergy Unknown Verified 10/23/21 17:20 citalopram Allergy Unknown Verified 10/23/21 17:20 colesevelam [From WelChol] Allergy Unknown Verified 10/23/21 17:20 fluoxetine Allergy Unknown Verified 10/23/21 17:20 gabapentin Allergy Unresponsiv Verified 10/23/21 17:20 e lactose Allergy Unknown Verified 10/23/21 17:20 lisinopril Allergy Unknown Verified 10/23/21 17:20 mirtazapine [From Remeron] Allergy Unknown Verified 10/23/21 17:20 oxycodone [From Percocet] Allergy Unknown Verified 10/23/21 17:20 venlafaxine [From Effexor] Allergy Unknown Verified 10/23/21 17:20 Active Medications: Current Medications Acetaminophen (Acetaminophen 325 Mg Tablet) 650 mg PO Q6H PRN PRN Reason: Pain, Mild (Pain Scale 1-3) Allopurinol (Allopurinol 100 Mg Tablet) 200 mg PO DAILY [facility] Amlodipine Besylate (Amlodipine Besylate 2.5 Mg Tablet) 2.5 mg PO BEDTIME ABBY; Protocol Apixaban (Apixaban 2.5 Mg Tablet) 2.5 mg PO BID [facility] Aspirin (Aspirin Enteric Coated 81 Mg Tablet.) 81 mg PO DAILY [facility] Atorvastatin Calcium (Atorvastatin Calcium 40 Mg Tablet) 40 mg PO BEDTIME ABBY Lorazepam (Lorazepam 1 Mg Tablet) 1 mg PO BEDTIME ABBY Magnesium Oxide (Magnesium Oxide 400 Mg Tablet) 400 mg PO DAILY ABBY Omeprazole (Omeprazole 20 Mg Capsule.) 20 mg PO DAILY@0630 [facility] Ondansetron HCl (Ondansetron Hcl 4 Mg/2 Ml Vial) 4 mg IVPUSH Q8H PRN PRN Reason: Nausea and Vomiting Pharmacy Consult (Consult Rx Perform Med Rec) 1 each MISCELLANE ONCE PRN PRN Reason: Consult order Pharmacy Consult (Consult Rx Perform Med Rec) 1 each MISCELLANE ONCE PRN PRN Reason: Consult order Sodium Chloride (0.9 % Sodium Chloride Flush 3 Ml Syringe) 3 ml IVFLUSH QSHIFT ABBY Tamsulosin HCl (Tamsulosin Hcl 0.4 Mg Capsule) 0.4 mg PO BEDTIME ABBY Thiamine HCl (Thiamine Hcl 100 Mg Tablet) 100 mg PO DAILY [facility] Vitamin D (Cholecalciferol (Vitamin D3) 25 Mcg Tablet) 50 mcg PO DAILY [facility] Home Medications Medication Instructions Recorded Confirmed Last Taken Type allopurinol 100 mg tablet 200 mg PO DAILY 10/23/21 10/23/21 10/23/21 History amlodipine 5 mg tablet 2.5 mg PO BEDTIME 10/23/21 10/23/21 10/22/21 History apixaban 2.5 mg tablet (Eliquis) 2.5 mg PO BID 10/23/21 10/23/21 10/23/21 History aspirin 81 mg tablet,delayed 81 mg PO DAILY 10/23/21 10/23/21 10/23/21 History release atorvastatin 40 mg tablet 40 mg PO BEDTIME 10/23/21 10/23/21 10/22/21 History cholecalciferol (vitamin D3) 50 50 mcg PO DAILY 10/23/21 10/23/21 10/23/21 History mcg (2,000 unit) tablet lorazepam 1 mg tablet 1 mg PO BEDTIME 10/23/21 10/23/21 10/22/21 History magnesium oxide 400 mg (241.3 mg 400 mg PO DAILY 10/23/21 10/23/21 10/23/21 History magnesium) tablet melatonin 5 mg tablet 5 mg PO BEDTIME PRN 10/23/21 10/23/21 10/22/21 History omeprazole 20 mg capsule,delayed 20 mg PO DAILY 10/23/21 10/23/21 10/23/21 History release tamsulosin 0.4 mg capsule 0.4 mg PO BEDTIME 10/23/21 10/23/21 10/22/21 History thiamine HCl (vitamin B1) 100 mg 100 mg PO DAILY 10/23/21 10/23/21 10/23/21 History tablet Physical Exam Vital Signs: Vital Signs: Last Vital Signs Temp 98.4 F 10/24/21 07:57 Pulse 64 10/24/21 07:57 Resp 15 10/24/21 07:57 BP 144/82 H 10/24/21 07:57 Pulse Ox 95 10/24/21 07:57 BMI result Body Mass Index 30.2 Const: General: no acute distress, well developed, alert and awake; No confusion Nutritional Appearance: well nourished Orientation/consciousness: patient oriented x3 and No confusion Limitations: no limitations HENMT: Head: Yes normal to inspection, Yes normocephalic and Yes atraumatic Ears: hearing grossly normal bilaterally, external ears normal, TM's normal bilaterally and EAC's normal General nose exam: Normal external nose present Face and sinus: Yes normal facial exam and Yes sinuses nontender Mouth: Normal oral and palatal mucosa present Throat: Yes posterior oropharynx normal Eyes: Conjunctivae: conjunctivae normal Pupils: Equal, round and reactive pupils present EOM: EOMs intact bilaterally and No Nystagmus present Neck: Neck: Yes full ROM, Yes no lymphadenopathy and Yes supple Resp: Effort & Inspection: normal respiratory effort and able to speak in complete sentences Auscultation: clear to auscultation bilaterally, no crackles, no rales, no rhonchi and no wheezes Cardio: Rate: regular rate Rhythm: regular rhythm Heart sounds: S1 normal heart sound present and S2 normal heart sound present GI: Inspection: Yes normal to inspection Palpation (GI): Soft to palpation, nontender, no guarding and not rigid Percussion: Yes normal to percussion Auscultation: normal bowel sounds Skin: Other: Skin tear right elbow Neuro: Other: Non focal exam with truncal ataxia and inability to walk independently General: patient oriented x3, No confusion and Unable to assess gait Cranial nerves: Yes CN's II-XII intact bilaterally, Yes Facial sensation intact/muscles of mastication intact, Yes Equal, round and reactive pupils present, Yes Bilaterally intact EOM present, Yes Nystagmus not present, Yes Normal facial strength present, Yes Midline tongue present, Yes Ability to bilaterally rotate head present, Yes Ability to bilaterally elevate shoulders present and No Nystagmus present Cognition (Neuro): normal cognition Speech: No Abnormal speech present Gait exam (Neuro): Unable to assess gait Motor exam (neuro): 5/5 motor strength present throughout Sensory Exam: No Sensory deficit (Neuro) Coordination: [id number] test normal Romberg Test: Negative Pupils: Normal pupillary reactivity/response: bilateral Extrem: General: Yes normal to inspection and Yes full ROM Psych: Appearance: grossly normal Affect: normal affect Attitude: cooperative Thought process: Normal thought process present Results Labs CBC & Chem 7: 10/23/21 18:25 10/23/21 18:25 Labs: Short CBC 10/23/21 Range/Units 18:25 WBC 7.6 (4.8-10.8) X10*3/uL Hgb 14.4 (14.0-18.0) g/dl Hct 41.5 L (42.0-52.0) % Plt Count 102 L (160-400) X10*3/uL BMP 10/23/21 18:25 Sodium 139 Potassium 3.9 Chloride 105 Carbon Dioxide 26 BUN 13 Creatinine 1.02 Calcium 8.8 Cardiac Enzymes 10/23/21 Range/Units 18:25 Total Creatine Kinase 28 L (38-174) U/L Liver Function 10/23/21 Range/Units 18:25 Total Bilirubin 2.4 H (0.0-1.0) mg/dL AST 18 (5-37) U/L ALT 26 (0-40) U/L Alkaline Phosphatase 86 (39-117) U/L Albumin 3.4 L (3.5-5.0) g/dL Urine 10/23/21 Range/Units 19:00 Urine Color YELLOW Urine Appearance CLEAR Urine pH 6.5 (5.0-8.0) Ur Specific [place] 1.020 (1.005-1.025) Urine Protein 1+ H (NEG-TRACE) MG/DL Urine Glucose (UA) NEG (NEG) MG/DL Assessment and Plan (1) Carotid stenosis, left: Status: Acute vascular surgery consult (2) Ataxia due to acute cerebrovascular disease: Status: Acute Observation. MRI to r/o acute cerebellar infarct. PT, OT for gait and balance Procedures Date of Service Date of Service: 10/24/21
[2021-10-24] MEDS: Thiamine HCL 100 MG TABLET PO (13:37)
[2021-10-24] MEDS: Aspirin Enteric Coated 81 MG TABLET.DR PO (13:38)
[2021-10-24] MEDS: Omeprazole 20 MG CAPSULE.DR PO (13:38)
[2021-10-24] MEDS: Apixaban 2.5 MG TABLET PO ×2 (13:38→20:24)
--- NOTE | 2021-10-24 14:03 | PM.IMHP ---
History of Present Illness Date of Service: 10/24/21 Chief Complaint: Unsteady gait An 86 years old male with PMH of carotid stenosis, atrial fibrillation post ppm, BPH among others who presented to the hospital complaining of new onset dizziness and unsteadiness for 1 day prior to admission. The patient reports that he woke up Tuesday and was working in his garden before going up stairs when he felt sudden me that he is unsteady on his feet and almost fell. The sensation did not improved during the whole day yesterday and EMS was called by his neighbor as he can the emergency for further evaluation. He denies any headache, double vision, focal weakness, numbness or tingling sensation. He denies any chest pain, shortness of breath or change in bowel habit. In the emergency CT scan, CTA were negative for any acute findings. MRI pending. Admitted for further evaluation and treatment. Review of Systems Review of Systems: No fever, chills but reports unsteadiness on his feet No chest pain, palpitation No shortness of breath or coughing No abdominal pain, nausea or vomiting No urinary symptoms No any rash or wounds PMFSH Medical History Diabetes Pacemaker Pertinent family history: HTN in mother Social History Alcohol intake: unknown Patient Tobacco Use Status: Tobacco use Unknown Use of substances other than those prescribed or required for medical reasons: No Advance Directives: No Advance Directives Information Provided: Yes Meds Allergies Allergy/AdvReac Type Severity Reaction Status Date / Time acetaminophen [From Percocet] Allergy Unknown Verified 10/23/21 17:20 bee pollen [bee stings] Allergy Unknown Verified 10/23/21 17:20 carvedilol Allergy Unknown Verified 10/23/21 17:20 citalopram Allergy Unknown Verified 10/23/21 17:20 colesevelam [From WelChol] Allergy Unknown Verified 10/23/21 17:20 fluoxetine Allergy Unknown Verified 10/23/21 17:20 gabapentin Allergy Unresponsiv Verified 10/23/21 17:20 e lactose Allergy Unknown Verified 10/23/21 17:20 lisinopril Allergy Unknown Verified 10/23/21 17:20 mirtazapine [From Remeron] Allergy Unknown Verified 12/17/21 17:20 oxycodone [From Percocet] Allergy Unknown Verified 10/23/21 17:20 venlafaxine [From Effexor] Allergy Unknown Verified 10/23/21 17:20 Active Medications: Current Medications Acetaminophen (Acetaminophen 325 Mg Tablet) 650 mg PO Q6H PRN PRN Reason: Pain, Mild (Pain Scale 1-3) Allopurinol (Allopurinol 100 Mg Tablet) 200 mg PO DAILY [facility] Amlodipine Besylate (Amlodipine Besylate 2.5 Mg Tablet) 2.5 mg PO BEDTIME [facility]; Protocol Apixaban (Apixaban 2.5 Mg Tablet) 2.5 mg PO BID [facility] Last Admin: 10/24/21 13:38 Dose: 2.5 mg Documented by: Aspirin (Aspirin Enteric Coated 81 Mg Tablet.) 81 mg PO DAILY [facility] Last Admin: 10/24/21 13:38 Dose: 81 mg Documented by: Atorvastatin Calcium (Atorvastatin Calcium 40 Mg Tablet) 40 mg PO BEDTIME [facility] Lorazepam (Lorazepam 1 Mg Tablet) 1 mg PO BEDTIME [facility] Magnesium Oxide (Magnesium Oxide 400 Mg Tablet) 400 mg PO DAILY [facility] Omeprazole (Omeprazole 20 Mg Capsule.) 20 mg PO DAILY@0630 [facility] Last Admin: 10/24/21 13:38 Dose: 20 mg Documented by: Ondansetron HCl (Ondansetron Hcl 4 Mg/2 Ml Vial) 4 mg IVPUSH Q8H PRN PRN Reason: Nausea and Vomiting Pharmacy Consult (Consult Rx Perform Med Rec) 1 each MISCELLANE ONCE PRN PRN Reason: Consult order Pharmacy Consult (Consult Rx Perform Med Rec) 1 each MISCELLANE ONCE PRN PRN Reason: Consult order Sodium Chloride (0.9 % Sodium Chloride Flush 3 Ml Syringe) 3 ml IVFLUSH QSHIFT [facility] Tamsulosin HCl (Tamsulosin Hcl 0.4 Mg Capsule) 0.4 mg PO BEDTIME [facility] Thiamine HCl (Thiamine Hcl 100 Mg Tablet) 100 mg PO DAILY [facility] Last Admin: 10/24/21 13:37 Dose: 100 mg Documented by: Vitamin D (Cholecalciferol (Vitamin D3) 25 Mcg Tablet) 50 mcg PO DAILY [facility] Home Medications Medication Instructions Recorded Confirmed Last Taken Type allopurinol 100 mg tablet 200 mg PO DAILY 10/23/21 10/23/21 10/23/21 History amlodipine 5 mg tablet 2.5 mg PO BEDTIME 10/23/21 10/23/21 10/22/21 History apixaban 2.5 mg tablet (Eliquis) 2.5 mg PO BID 10/23/21 10/23/21 10/23/21 History aspirin 81 mg tablet,delayed 81 mg PO DAILY 10/23/21 10/23/21 10/23/21 History release atorvastatin 40 mg tablet 40 mg PO BEDTIME 10/23/21 10/23/21 10/22/21 History cholecalciferol (vitamin D3) 50 50 mcg PO DAILY 10/23/21 10/23/21 10/23/21 History mcg (2,000 unit) tablet lorazepam 1 mg tablet 1 mg PO BEDTIME 10/23/21 10/23/21 10/22/21 History magnesium oxide 400 mg (241.3 mg 400 mg PO DAILY 10/23/21 10/23/21 10/23/21 History magnesium) tablet melatonin 5 mg tablet 5 mg PO BEDTIME PRN 10/23/21 10/23/21 10/22/21 History omeprazole 20 mg capsule,delayed 20 mg PO DAILY 10/23/21 10/23/21 10/23/21 History release tamsulosin 0.4 mg capsule 0.4 mg PO BEDTIME 10/23/21 10/23/21 10/22/21 History thiamine HCl (vitamin B1) 100 mg 100 mg PO DAILY 10/23/21 10/23/21 10/23/21 History tablet Physical Exam Vital Signs and Narrative: Vital Signs: Last Vital Signs Temp 98.4 F 10/24/21 07:57 Pulse 64 10/24/21 07:57 Resp 15 10/24/21 07:57 BP 144/82 H 10/24/21 07:57 Pulse Ox 95 10/24/21 07:57 BMI result Body Mass Index 30.2 Const: Other: Constitutional : Alert, oriented, not in distress Neck : Normal inspection, Supple Cardiovascular : RRR, S1 S2, no lower extremity edema Respiratory : Good bilateral air entry, no crackles, wheezes or rhonchi Gastrointestinal: soft, lax, Normal bowel sounds, Non tender Skin : Warm, Dry Neurological : Alert & oriented x3, No focal deficit, normal cranial nerve exam, within normal cerebellar examination, Results Labs CBC and Chem 7: 10/23/21 18:25 10/23/21 18:25 Labs: Laboratory Results - last 24 hr 10/23/21 10/23/21 10/23/21 17:18 18:25 18:25 MCV 97.2 MCH 33.7 H MCHC 34.7 RDW 13.5 Plt Count 102 L MPV 10.4 Immature Gran % (Auto) 0.8 H Neut % (Auto) 69.1 Lymph % (Auto) 20.2 [place] % (Auto) 8.8 Eos % (Auto) 0.7 Baso % (Auto) 0.4 Lymph # (Auto) 1.5 [place] # (Auto) 0.7 Eos # (Auto) 0.1 Baso # (Auto) 0.0 Abs Immat Gran (auto) 0.06 H Absolute Neuts (auto) 5.3 Absolute Nucleated RBC 0.000 Nucleated RBC % (auto) 0.0 PT INR APTT Anion Gap 12 Estim Creat Clear Calc 58.7 Estimated GFR > 60 POC Glucose 124 H Random Glucose 139 H Calcium 8.8 Magnesium 1.8 Total Bilirubin 2.4 H AST 18 ALT 26 Alkaline Phosphatase 86 Total Creatine Kinase 28 L Troponin I High Sens Total Protein 6.0 L Albumin 3.4 L Urine Color Urine Appearance Urine pH Ur Specific [place] Urine Protein Urine Glucose (UA) Urine Ketones Urine Blood Urine Nitrite Ur Leukocyte Esterase Urine RBC Urine WBC Ur Squamous Epith Cells Urine Bacteria Ethyl Alcohol COVID-19 ([facility]) COVID-19 Clin Com 10/23/21 10/23/21 10/23/21 18:25 18:25 18:25 MCV MCH MCHC RDW Plt Count MPV Immature Gran % (Auto) Neut % (Auto) Lymph % (Auto) [place] % (Auto) Eos % (Auto) Baso % (Auto) Lymph # (Auto) [place] # (Auto) Eos # (Auto) Baso # (Auto) Abs Immat Gran (auto) Absolute Neuts (auto) Absolute Nucleated RBC Nucleated RBC % (auto) PT 12.9 INR 1.1 APTT 30.9 Anion Gap Estim Creat Clear Calc Estimated GFR POC Glucose Random Glucose Calcium Magnesium Total Bilirubin AST ALT Alkaline Phosphatase Total Creatine Kinase Troponin I High Sens 24.7 Total Protein Albumin Urine Color Urine Appearance Urine pH Ur Specific [place] Urine Protein Urine Glucose (UA) Urine Ketones Urine Blood Urine Nitrite Ur Leukocyte Esterase Urine RBC Urine WBC Ur Squamous Epith Cells Urine Bacteria Ethyl Alcohol < 10 COVID-19 ([facility]) COVID-19 Clin Com 10/23/21 10/23/21 10/23/21 19:00 21:31 22:05 MCV MCH MCHC RDW Plt Count MPV Immature Gran % (Auto) Neut % (Auto) Lymph % (Auto) [place] % (Auto) Eos % (Auto) Baso % (Auto) Lymph # (Auto) [place] # (Auto) Eos # (Auto) Baso # (Auto) Abs Immat Gran (auto) Absolute Neuts (auto) Absolute Nucleated RBC Nucleated RBC % (auto) PT INR APTT Anion Gap Estim Creat Clear Calc Estimated GFR POC Glucose Random Glucose Calcium Magnesium Total Bilirubin AST ALT Alkaline Phosphatase Total Creatine Kinase Troponin I High Sens 22.9 Total Protein Albumin Urine Color YELLOW Urine Appearance CLEAR Urine pH 6.5 Ur Specific [place] 1.020 Urine Protein 1+ H Urine Glucose (UA) NEG Urine Ketones 15 Urine Blood NEG Urine Nitrite NEG Ur Leukocyte Esterase NEG Urine RBC 0 Urine WBC 0 Ur Squamous Epith Cells NONE Urine Bacteria TRACE Ethyl Alcohol COVID-19 ([facility]) Negative COVID-19 Clin Com See Note 10/24/21 08:05 MCV MCH MCHC RDW Plt Count MPV Immature Gran % (Auto) Neut % (Auto) Lymph % (Auto) [place] % (Auto) Eos % (Auto) Baso % (Auto) Lymph # (Auto) [place] # (Auto) Eos # (Auto) Baso # (Auto) Abs Immat Gran (auto) Absolute Neuts (auto) Absolute Nucleated RBC Nucleated RBC % (auto) PT INR APTT Anion Gap Estim Creat Clear Calc Estimated GFR POC Glucose 114 Random Glucose Calcium Magnesium Total Bilirubin AST ALT Alkaline Phosphatase Total Creatine Kinase Troponin I High Sens Total Protein Albumin Urine Color Urine Appearance Urine pH Ur Specific [place] Urine Protein Urine Glucose (UA) Urine Ketones Urine Blood Urine Nitrite Ur Leukocyte Esterase Urine RBC Urine WBC Ur Squamous Epith Cells Urine Bacteria Ethyl Alcohol COVID-19 ([facility]) COVID-19 Clin Com Imaging Radiologist's Impressions: Impressions Chest X-Ray 10/23/21 17:53 IMPRESSION: No acute cardiopulmonary abnormality. Head CT 10/23/21 18:14 IMPRESSION: No acute intracranial pathology. Chronic volume loss with small vessel ischemic changes. Chronic lacunar infarcts. This critical result was discussed with ANAYELI Ryder by telephone at 10/23/2021 6:34 PM and it was ascertained that the content and urgency of the report was understood at the time of direct communication. Head/Neck CTA 10/23/21 20:15 IMPRESSION: CT head: No intracranial hemorrhage or large acute infarction. Chronic lacunar infarcts in the bilateral basal ganglia and left cerebellum. Background changes of chronic microangiopathy and brain parenchymal volume loss. 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 No additional high-grade narrowing in the neck arteries. CTA head: No proximal vessel occlusion or significant stenosis. 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 This could represent an epithelial lesion or avascular lesion. Consider nonemergent ENT follow-up. This critical result was discussed with ANAYELI Ryder on 10/23/2021 8:42 PM, and it was ascertained that the content and urgency of the report was understood at the time of direct communication. Head CT 10/24/21 11:26 IMPRESSION: No acute intracranial process seen Small lacunar infarction bilateral internal capsule is unchanged to previous exam 10/23/2021. There is chronic cerebral volume loss. Assessment and Plan (1) Unsteadiness on feet: Status: Acute (2) Abnormal gait: Status: Acute (3) Carotid stenosis, left: Status: Acute An 86 years old male with PMH of carotid stenosis, atrial fibrillation post ppm, BPH among others who presented to the hospital complaining of new onset dizziness and unsteadiness for 1 day prior to admission. Abnormal gait Unsteadiness Could be secondary to central or peripheral causes CT, CTA did not show any acute findings, pending MRI Continue home medications of aspirin statin Neurology input appreciated PT OT Left carotid stenosis Per CTA get vascular surgery evaluation Atrial fibrillation On pacemaker continue Eliquis home dose DVT PPX Eliquis Quality Stroke Does the patient have a stroke diagnosis?: No VTE Prior VTE?: No VTE Risk Level:: Medical - moderate - high VTE Device Contraindication: Treatment Not Indicated VTE Drug Contraindication: N/A - Med Ordered
[2021-10-24] MEDS: Atorvastatin Calcium 40 MG TABLET PO (20:24)
[2021-10-24] MEDS: amLODIPine Besylate 2.5 MG TABLET PO (20:24)
[2021-10-24 21:24] LABS: Glucose, Whole Blood 126 mg/dL (60-115)
[2021-10-24] MEDS: Tamsulosin HCL 0.4 MG CAPSULE PO (22:44)
[2021-10-24] MEDS: 0.9 % Sodium Chloride Flush 3 ML SYRINGE IVFLUSH (23:37)
[2021-10-25] VITALS (7 sets, daily range): BP systolic 126–151; BP diastolic 60–83; PULSE 59–89; RESP 15–20; TEMP 36.4–37.1; O2SAT 90–98
[2021-10-25 06:16] LABS: Mean Platelet Volume 10.7 fL (9.4-12.4); PLT CLUMP 1
[2021-10-25 06:17] LABS: Hematocrit 41.7 % (42.0-52.0); Mean Corpuscular HGB Conc 33.6 g/dl (31.0-36.0); Mean Corpuscular Hemoglobin 32.6 pg (27.0-33.0); Red Cell Distribution Width 13.3 % (11.0-16.0)
[2021-10-25 06:45] LABS: White Blood Count 8.3 X10*3/uL (4.8-10.8)
[2021-10-25 06:46] LABS: Platelet Count 118 X10*3/uL (160-400)
[2021-10-25 06:50] LABS: Anion Gap 11 (12-20); Blood Urea Nitrogen 11 mg/dL (9-16); Carbon Dioxide 29 mmol/L (22-29); Chloride 106 mmol/L (96-108); Creatinine Clr Calc Pharmacy 49.1; Estimated Glomerular Filt Rate 57; Glucose Random 122 mg/dL (60-115); Potassium 4.1 mmol/L (3.3-5.1); Sodium 142 mmol/L (135-145)
[2021-10-25] MEDS: Aspirin Enteric Coated 81 MG TABLET.DR PO (08:51)
[2021-10-25] MEDS: Apixaban 2.5 MG TABLET PO ×2 (08:51→21:08)
[2021-10-25] MEDS: Thiamine HCL 100 MG TABLET PO (08:51)
[2021-10-25] MEDS: 0.9 % Sodium Chloride Flush 3 ML SYRINGE IVFLUSH ×3 (08:51→21:09)
[2021-10-25] MEDS: allopurinoL 100 MG TABLET 200 MG PO (08:51)
[2021-10-25] MEDS: Omeprazole 20 MG CAPSULE.DR PO (08:56)
--- NOTE | 2021-10-25 11:25 | P.PNIM_ITS ---
Subjective Subjective Date of Service: 10/25/21 Interval History: the patient was seen and evaluated this morning Laying in bed, feels comfortable Reported dizziness and unsteadiness upon walking Denies any fever, chills or shortness of breath No reported other overnight events. Review of Systems No fever, chills but reports unsteadiness on his feet No chest pain, palpitation No shortness of breath or coughing No abdominal pain, nausea or vomiting No urinary symptoms No any rash or wounds Physical Exam Vital Signs: Vital Signs: Last Vital Signs Temp 98.4 F 10/25/21 08:00 Pulse 78 10/25/21 08:00 Resp 20 10/25/21 08:00 BP 138/68 10/25/21 08:00 Pulse Ox 98 10/25/21 08:00 BMI result Body Mass Index 30.2 Const: Other: Constitutional : Alert, oriented, not in distress Neck : Normal inspection, Supple Cardiovascular : RRR, S1 S2, no lower extremity edema Respiratory : Good bilateral air entry, no crackles, wheezes or rhonchi Gastrointestinal: soft, lax, Normal bowel sounds, Non tender Skin : Warm, Dry Neurological : Alert & oriented x3, No focal deficit, normal cranial nerve exam, within normal cerebellar examination, Objective Data Active Medications Acetaminophen (Acetaminophen 325 Mg Tablet) 650 mg PO Q6H PRN PRN Reason: Pain, Mild (Pain Scale 1-3) Allopurinol (Allopurinol 100 Mg Tablet) 200 mg PO DAILY [facility] Last Admin: 10/25/21 08:51 Dose: 200 mg Documented by: ELANIE Amlodipine Besylate (Amlodipine Besylate 2.5 Mg Tablet) 2.5 mg PO BEDTIME [facility]; Protocol Last Admin: 10/24/21 20:24 Dose: 2.5 mg Documented by: JENNIFER Apixaban (Apixaban 2.5 Mg Tablet) 2.5 mg PO BID [facility] Last Admin: 10/25/21 08:51 Dose: 2.5 mg Documented by: ELAINE Aspirin (Aspirin Enteric Coated 81 Mg Tablet.) 81 mg PO DAILY [facility] Last Admin: 10/25/21 08:51 Dose: 81 mg Documented by: ELAINE Atorvastatin Calcium (Atorvastatin Calcium 40 Mg Tablet) 40 mg PO BEDTIME [facility] Last Admin: 10/24/21 20:24 Dose: 40 mg Documented by: HO.CASTILM Lorazepam (Lorazepam 1 Mg Tablet) 1 mg PO BEDTIME [facility] Last Admin: 10/24/21 22:41 Dose: 1 mg Documented by: JENNIFER Magnesium Oxide (Magnesium Oxide 400 Mg Tablet) 400 mg PO BEDTIME [facility] Omeprazole (Omeprazole 20 Mg Capsule.Dr) 20 mg PO DAILY@0900 [facility] Ondansetron HCl (Ondansetron Hcl 4 Mg/2 Ml Vial) 4 mg IVPUSH Q8H PRN PRN Reason: Nausea and Vomiting Pharmacy Consult (Consult Rx Perform Med Rec) 1 each MISCELLANE ONCE PRN PRN Reason: Consult order Pharmacy Consult (Consult Rx Perform Med Rec) 1 each MISCELLANE ONCE PRN PRN Reason: Consult order Sodium Chloride (0.9 % Sodium Chloride Flush 3 Ml Syringe) 3 ml IVFLUSH QSHIFT [facility] Last Admin: 10/25/21 08:51 Dose: 3 ml Documented by: ELAINE Tamsulosin HCl (Tamsulosin Hcl 0.4 Mg Capsule) 0.4 mg PO BEDTIME [facility] Last Admin: 10/24/21 22:44 Dose: 0.4 mg Documented by: JENNIFER Thiamine HCl (Thiamine Hcl 100 Mg Tablet) 100 mg PO DAILY [facility] Last Admin: 10/25/21 08:51 Dose: 100 mg Documented by: ELAINE Vitamin D (Cholecalciferol (Vitamin D3) 25 Mcg Tablet) 50 mcg PO DAILY [facility] Last Admin: 10/25/21 09:09 Dose: Not Given Documented by: ELAINE Non-Admin Reason: Patient Refused Labs CBC & Chem 7: 10/25/21 05:38 10/25/21 05:38 Labs: Laboratory Results - last 24 hr 10/24/21 10/25/21 10/25/21 21:17 05:38 05:38 MCV 97.0 MCH 32.6 MCHC 33.6 RDW 13.3 Plt Count 118 L MPV 10.7 Absolute Nucleated RBC 0.000 Nucleated RBC % (auto) 0.0 Anion Gap 11 L Estim Creat Clear Calc 49.1 Estimated GFR 57 POC Glucose 126 H Random Glucose 122 H Calcium 9.0 Assessment and Plan (1) Abnormal gait: Status: Acute (2) Unsteadiness on feet: Status: Acute Assessment and Plan: An 86 years old male with PMH of carotid stenosis, atrial fibrillation post ppm, BPH among others who presented to the hospital complaining of new onset dizziness and unsteadiness for 1 day prior to admission. Abnormal gait Unsteadiness Could be secondary to central or peripheral causes CT, CTA did not show any acute findings, pending MRI Continue home medications of aspirin statin Neurology input appreciated PT OT Left carotid stenosis Per CTA Severe stenosis of the proximal left internal carotid artery estimated as greater than 90% with only threadlike flow across a short segment. get vascular surgery evaluation Atrial fibrillation On pacemaker continue Eliquis home dose DVT PPX Eliquis Quality Stroke Does the patient have a stroke diagnosis?: No VTE Prior VTE?: No VTE Risk Level:: Medical - moderate - high VTE Device Contraindication: Treatment Not Indicated VTE Drug Contraindication: N/A - Med Ordered
[2021-10-25 11:39] LABS: Magnesium 1.8 mg/dL (1.6-2.6)
[2021-10-25] MEDS: Tamsulosin HCL 0.4 MG CAPSULE PO (21:08)
[2021-10-25] MEDS: LORazepam 1 MG TABLET PO (21:08)
[2021-10-25] MEDS: amLODIPine Besylate 2.5 MG TABLET PO (21:08)
[2021-10-25] MEDS: Magnesium Oxide 400 MG TABLET PO (21:09)
[2021-10-25] MEDS: Atorvastatin Calcium 40 MG TABLET PO (21:09)
[2021-10-26] VITALS (7 sets, daily range): BP systolic 110–173; BP diastolic 62–79; PULSE 62–88; RESP 15–18; TEMP 36.1–37.2; O2SAT 95–98
[2021-10-26] MEDS: Cholecalciferol (Vitamin D3) 25 MCG TABLET 50 MCG PO (08:50)
[2021-10-26] MEDS: Omeprazole 20 MG CAPSULE.DR PO (08:51)
[2021-10-26] MEDS: allopurinoL 100 MG TABLET 200 MG PO (08:52)
[2021-10-26] MEDS: Aspirin Enteric Coated 81 MG TABLET.DR PO (08:52)
[2021-10-26] MEDS: Apixaban 2.5 MG TABLET PO ×2 (08:52→21:02)
[2021-10-26] MEDS: Thiamine HCL 100 MG TABLET PO (08:52)
[2021-10-26] MEDS: 0.9 % Sodium Chloride Flush 3 ML SYRINGE IVFLUSH ×3 (09:07→21:03)
--- NOTE | 2021-10-26 12:25 | HO.PM.IMPN ---
Subjective Subjective Date of Service: 10/26/21 Interval History: the patient was seen and evaluated this morning Laying in bed, feels comfortable Able to ambulate using a walker Reported improved dizziness and unsteadiness upon walking Denies any fever, chills or shortness of breath No reported other overnight events. Review of Systems No fever, chills but reports unsteadiness on his feet No chest pain, palpitation No shortness of breath or coughing No abdominal pain, nausea or vomiting No urinary symptoms No any rash or wounds Physical Exam Vital Signs: Vital Signs: Last Vital Signs Temp 97.0 F 10/26/21 08:00 Pulse 88 10/26/21 09:15 Resp 15 10/26/21 08:00 BP 136/74 10/26/21 09:15 Pulse Ox 98 10/26/21 09:15 BMI result Body Mass Index 30.2 Const: Other: Constitutional : Alert, oriented, not in distress Neck : Normal inspection, Supple Cardiovascular : RRR, S1 S2, no lower extremity edema Respiratory : Good bilateral air entry, no crackles, wheezes or rhonchi Gastrointestinal: soft, lax, Normal bowel sounds, Non tender Skin : Warm, Dry Neurological : Alert & oriented x3, No focal deficit, normal cranial nerve exam, within normal cerebellar examination, Objective Data Active Medications Acetaminophen (Acetaminophen 325 Mg Tablet) 650 mg PO Q6H PRN PRN Reason: Pain, Mild (Pain Scale 1-3) Allopurinol (Allopurinol 100 Mg Tablet) 200 mg PO DAILY [facility] Last Admin: 10/26/21 08:52 Dose: 200 mg Documented by: ASMITA Amlodipine Besylate (Amlodipine Besylate 2.5 Mg Tablet) 2.5 mg PO BEDTIME [facility]; Protocol Last Admin: 10/25/21 21:08 Dose: 2.5 mg Documented by: LOUIS Apixaban (Apixaban 2.5 Mg Tablet) 2.5 mg PO BID [facility] Last Admin: 10/26/21 08:52 Dose: 2.5 mg Documented by: ASMITA Aspirin (Aspirin Enteric Coated 81 Mg Tablet.) 81 mg PO DAILY [facility] Last Admin: 10/26/21 08:52 Dose: 81 mg Documented by: ASMITA Atorvastatin Calcium (Atorvastatin Calcium 40 Mg Tablet) 40 mg PO BEDTIME [facility] Last Admin: 10/25/21 21:09 Dose: 40 mg Documented by: LOUIS Lorazepam (Lorazepam 1 Mg Tablet) 1 mg PO BEDTIME [facility] Last Admin: 10/25/21 21:08 Dose: 1 mg Documented by: LOUIS Magnesium Oxide (Magnesium Oxide 400 Mg Tablet) 400 mg PO BEDTIME [facility] Last Admin: 10/25/21 21:09 Dose: 400 mg Documented by: LOUIS Omeprazole (Omeprazole 20 Mg Capsule.Dr) 20 mg PO DAILY@0900 [facility] Last Admin: 10/26/21 08:51 Dose: 20 mg Documented by: ASMITA Ondansetron HCl (Ondansetron Hcl 4 Mg/2 Ml Vial) 4 mg IVPUSH Q8H PRN PRN Reason: Nausea and Vomiting Pharmacy Consult (Consult Rx Perform Med Rec) 1 each MISCELLANE ONCE PRN PRN Reason: Consult order Pharmacy Consult (Consult Rx Perform Med Rec) 1 each MISCELLANE ONCE PRN PRN Reason: Consult order Sodium Chloride (0.9 % Sodium Chloride Flush 3 Ml Syringe) 3 ml IVFLUSH QSHIFT [facility] Last Admin: 10/26/21 09:07 Dose: 3 ml Documented by: ASMITA Tamsulosin HCl (Tamsulosin Hcl 0.4 Mg Capsule) 0.4 mg PO BEDTIME [facility] Last Admin: 10/25/21 21:08 Dose: 0.4 mg Documented by: LOUIS Thiamine HCl (Thiamine Hcl 100 Mg Tablet) 100 mg PO DAILY [facility] Last Admin: 10/26/21 08:52 Dose: 100 mg Documented by: ASMITA Vitamin D (Cholecalciferol (Vitamin D3) 25 Mcg Tablet) 50 mcg PO DAILY [facility] Last Admin: 10/26/21 08:50 Dose: 50 mcg Documented by: ASMITA Labs CBC & Chem 7: 10/25/21 05:38 10/25/21 05:38 Assessment and Plan (1) Carotid stenosis, left: Status: Acute (2) Unsteadiness on feet: Status: Acute (3) Abnormal gait: Status: Acute Assessment and Plan: An 86 years old male with PMH of carotid stenosis, atrial fibrillation post ppm, BPH among others who presented to the hospital complaining of new onset dizziness and unsteadiness for 1 day prior to admission. Abnormal gait Unsteadiness Could be secondary to central or peripheral causes CT, CTA did not show any acute findings, pending MRI Continue home medications of aspirin statin Neurology input appreciated PT OT Left carotid stenosis Per CTA Severe stenosis of the proximal left internal carotid artery estimated as greater than 90% with only threadlike flow across a short segment. Vascular surgeon input appreciated, planned surgery during this admission for high risk To get cardiology evaluation for preop clearance Atrial fibrillation On pacemaker continue Eliquis home dose DVT PPX Eliquis Quality Stroke Does the patient have a stroke diagnosis?: No VTE Prior VTE?: No VTE Risk Level:: Medical - moderate - high VTE Device Contraindication: Treatment Not Indicated VTE Drug Contraindication: N/A - Med Ordered
--- NOTE | 2021-10-26 13:25 | PM.CNGS ---
History of Present Illness Consult details Consult date: 10/26/21 Reason for consult: other (Left carotid stenosis) Narrative: Very pleasant 86-year-old gentleman with a history of carotid disease. He presented to the hospital with a dizzy spell and subsequently called 911. He has been living alone and has no family. He noticed that he was uncomfortable and had to hold on to the refrigerator and was subsequently brought in to the hospital. Upon workup he was noted to have high-grade left carotid stenosis. Upon discussion with him he has had prior right-sided carotid endarterectomy. This was done several years prior by Dr. Reyes. It appears that there was an attempted carotid stent which was not successful. He subsequently underwent open right carotid endarterectomy. He was having routine surveillance follow-up but fail to follow-up secondary to fear of catching COVID. Upon workup he now has high-grade left carotid stenosis. [facility] Past Medical History Medical History Diabetes Pacemaker Social History Social History Household Members: None Housing: House Do you presently have visiting nurse or other home services: No Alcohol intake: unknown Patient Tobacco Use Status: Tobacco use Unknown Use of substances other than those prescribed or required for medical reasons: No Currently Displaying Signs/Symptoms of Drug Intoxication Withdrawal: No Have you been hit, kicked, punched, or otherwise hurt by someone within the past year? If so, by whom?: No Do you feel safe in your current relationship?: No Is there a partner from a previous relationship who is making you feel unsafe now?: No Advance Directives: No Advance Directives Information Provided: Yes Do you have thoughts of harming others: None Do you have a plan to hurt others: No Plan Recently lost weight without trying: No Nutrition Risks: No Nutritional Risk Meds Allergies Allergy/AdvReac Type Severity Reaction Status Date / Time acetaminophen [From Percocet] Allergy Unknown Verified 10/23/21 17:20 bee pollen [bee stings] Allergy Unknown Verified 10/23/21 17:20 carvedilol Allergy Unknown Verified 10/23/21 17:20 citalopram Allergy Unknown Verified 10/23/21 17:20 colesevelam [From WelChol] Allergy Unknown Verified 10/23/21 17:20 fluoxetine Allergy Unknown Verified 10/23/21 17:20 gabapentin Allergy Unresponsiv Verified 10/23/21 17:20 e lactose Allergy Unknown Verified 10/23/21 17:20 lisinopril Allergy Unknown Verified 10/23/21 17:20 mirtazapine [From Remeron] Allergy Unknown Verified 10/23/21 17:20 oxycodone [From Percocet] Allergy Unknown Verified 10/23/21 17:20 venlafaxine [From Effexor] Allergy Unknown Verified 10/23/21 17:20 Active Medications: Current Medications Acetaminophen (Acetaminophen 325 Mg Tablet) 650 mg PO Q6H PRN PRN Reason: Pain, Mild (Pain Scale 1-3) Allopurinol (Allopurinol 100 Mg Tablet) 200 mg PO DAILY [facility] Last Admin: 10/26/21 08:52 Dose: 200 mg Documented by: Amlodipine Besylate (Amlodipine Besylate 2.5 Mg Tablet) 2.5 mg PO BEDTIME [facility]; Protocol Last Admin: 10/25/21 21:08 Dose: 2.5 mg Documented by: Apixaban (Apixaban 2.5 Mg Tablet) 2.5 mg PO BID [facility] Last Admin: 10/26/21 08:52 Dose: 2.5 mg Documented by: Aspirin (Aspirin Enteric Coated 81 Mg Tablet.) 81 mg PO DAILY [facility] Last Admin: 10/26/21 08:52 Dose: 81 mg Documented by: Atorvastatin Calcium (Atorvastatin Calcium 40 Mg Tablet) 40 mg PO BEDTIME [facility] Last Admin: 10/25/21 21:09 Dose: 40 mg Documented by: Lorazepam (Lorazepam 1 Mg Tablet) 1 mg PO BEDTIME [facility] Last Admin: 10/25/21 21:08 Dose: 1 mg Documented by: Magnesium Oxide (Magnesium Oxide 400 Mg Tablet) 400 mg PO BEDTIME [facility] Last Admin: 10/25/21 21:09 Dose: 400 mg Documented by: Omeprazole (Omeprazole 20 Mg Capsule.) 20 mg PO DAILY@0900 [facility] Last Admin: 10/26/21 08:51 Dose: 20 mg Documented by: Ondansetron HCl (Ondansetron Hcl 4 Mg/2 Ml Vial) 4 mg IVPUSH Q8H PRN PRN Reason: Nausea and Vomiting Pharmacy Consult (Consult Rx Perform Med Rec) 1 each MISCELLANE ONCE PRN PRN Reason: Consult order Pharmacy Consult (Consult Rx Perform Med Rec) 1 each MISCELLANE ONCE PRN PRN Reason: Consult order Sodium Chloride (0.9 % Sodium Chloride Flush 3 Ml Syringe) 3 ml IVFLUSH QSHIFT [facility] Last Admin: 10/26/21 09:07 Dose: 3 ml Documented by: Tamsulosin HCl (Tamsulosin Hcl 0.4 Mg Capsule) 0.4 mg PO BEDTIME [facility] Last Admin: 10/25/21 21:08 Dose: 0.4 mg Documented by: Thiamine HCl (Thiamine Hcl 100 Mg Tablet) 100 mg PO DAILY [facility] Last Admin: 10/26/21 08:52 Dose: 100 mg Documented by: Vitamin D (Cholecalciferol (Vitamin D3) 25 Mcg Tablet) 50 mcg PO DAILY [facility] Last Admin: 10/26/21 08:50 Dose: 50 mcg Documented by: Home Medications Medication Instructions Recorded Confirmed Last Taken Type allopurinol 100 mg tablet 200 mg PO DAILY 10/23/21 10/23/21 10/23/21 History amlodipine 5 mg tablet 2.5 mg PO BEDTIME 10/23/21 10/23/21 10/22/21 History apixaban 2.5 mg tablet (Eliquis) 2.5 mg PO BID 10/23/21 10/23/21 10/23/21 History aspirin 81 mg tablet,delayed 81 mg PO DAILY 10/23/21 10/23/21 10/23/21 History release atorvastatin 40 mg tablet 40 mg PO BEDTIME 10/23/21 10/23/21 10/22/21 History cholecalciferol (vitamin D3) 50 50 mcg PO DAILY 10/23/21 10/23/21 10/23/21 History mcg (2,000 unit) tablet lorazepam 1 mg tablet 1 mg PO BEDTIME 10/23/21 10/23/21 10/22/21 History magnesium oxide 400 mg (241.3 mg 400 mg PO DAILY 10/23/21 10/23/21 10/23/21 History magnesium) tablet melatonin 5 mg tablet 5 mg PO BEDTIME PRN 10/23/21 10/23/21 10/22/21 History omeprazole 20 mg capsule,delayed 20 mg PO DAILY 10/23/21 10/23/21 10/23/21 History release tamsulosin 0.4 mg capsule 0.4 mg PO BEDTIME 10/23/21 10/23/21 10/22/21 History thiamine HCl (vitamin B1) 100 mg 100 mg PO DAILY 10/23/21 10/23/21 10/23/21 History tablet Physical Exam Vital Signs: Vital Signs: Last Vital Signs Temp 97.0 F 10/26/21 08:00 Pulse 88 10/26/21 09:15 Resp 15 10/26/21 08:00 BP 136/74 10/26/21 09:15 Pulse Ox 98 10/26/21 09:15 BMI result Body Mass Index 30.2 Const: General: cooperative, healthy appearing and no acute distress Orientation/consciousness: oriented to person, oriented to place and oriented to time HENMT: Head: Yes normal to inspection Neck: Carotids: no bruits Chest: Chest palpation & inspection: normal inspection of the chest Resp: Effort & Inspection: normal respiratory effort and able to speak in complete sentences Auscultation: clear to auscultation bilaterally Cardio: Rate: regular rate Heart sounds: S1 normal heart sound present and S2 normal heart sound present GI: Inspection: Yes normal to inspection Skin: General skin exam: no rashes or lesions noted Wounds: no wounds Neuro: General: oriented to person, oriented to place, oriented to time and CN's II-XI intact bilaterally Extrem: General: Yes normal to inspection, Yes full ROM and Yes no clubbing, cyanosis or edema Psych: Appearance: grossly normal and well kempt Speech and movement: Normal speech and movement present Affect: normal affect Results Labs Result diagrams: 10/25/21 05:38 10/25/21 05:38 Labs: Urine 10/23/21 Range/Units 19:00 Urine Color YELLOW Urine Appearance CLEAR Urine pH 6.5 (5.0-8.0) Ur Specific [facility] 1.020 (1.005-1.025) Urine Protein 1+ H (NEG-TRACE) MG/DL Urine Glucose (UA) NEG (NEG) MG/DL All other labs normal. Imaging Additional studies: CTA neck reviewed high-grade left carotid stenosis with string sign. Written report and images were reviewed. Assessment and Plan (1) Carotid stenosis, left: Status: Acute In short patient has critical left carotid stenosis. We are pending workup regarding repeat MRI of the brain. Currently he does not have an acute stroke. He does have critical left carotid string sign. Will need carotid endarterectomy this admission. He is being maintained on aspirin and Eliquis. Will require cardiac risk stratification. We will continue to follow him closely. Thank you for allowing us to assist in his care. Procedures Date of Service Date of Service: 10/26/21
--- NOTE | 2021-10-26 15:12 | MHC.STROKE ---
Addendum entered by Aishwarya Breen RN 10/28/21 11:08: THE PATIENT HAD THE MRI THIS AM, I REVIEWED THE RESULTS WITH DR VARELA. HE SAID THAT THIS WOULD NOT PRECLUDE ANY SURGERY AND IS CLEARED FROM HIS PERSPECTIVE. I REVIEWED THE RESULTS AND THE SCAN WITH THE PATIENT, I ANSWERED ALL HIS QUESTIONS. I ALSO REVIEWED THIS PLAN WITH DR CHARLES. Original Note: I MET WITH MR SWAN. I REVIEWED HIS PLAN OF CARE AND TESTS WITH HIM, HE HAD MANY QUESTIONS THAT I WAS ABLE TO ANSWER. HE IS VERY DISCOURAGED, HIS PASSED YEARS AGO AND ALL HIS FRIENDS ALSO PASSED. WE DISCUSSED HIS CURRENT MEDICAL ISSUES, HE'S COMPLIANT WITH HIS MEDICATIONS BUT HE HAS NOT SEEN HIS VASCULAR SURGEON DUE TO COVID. HE HAD A CAROTID ENDARTERECTOMY ABOUT [address] LEROY AND THEY WERE MONITORING THE LEFT SIDE. WE DISCUSSED THE UPCOMING CAROTID SURGERY AND WHY HE NEEDED IT. HE IS SLIGHTLY DEPRESSED BUT UNDERSTANDS WHY HE NEEDS IT. I REVIEWED HIS STROKE RISK FACTORS AND WHY HE NEEDS THE MRI TOMORROW. HE NEVER HAD THESE SYMPTOMS BEFORE. ON 10/23/21 AT 1030 HE A SUDDEN ONSET ON VERTIGO, ESPECIALLY WHEN HE TURNED HIS HEAD. NO BLURRED VISION. THESE SYMPTOMS HAVE IMPROVED. I WILL FOLLOW UP WITH HIM TOMORROW.
--- NOTE | 2021-10-26 16:22 | MHC.CM.PN ---
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, UNCLEAR IF PT WILL BE ACCEPTING OF ADDITIONAL SERVICES. D/C PLAN: HOME W/NEW VNA VS STR, FRIEND VS BLS TRANSPORT
[2021-10-26] MEDS: Tamsulosin HCL 0.4 MG CAPSULE PO (21:02)
[2021-10-26] MEDS: Atorvastatin Calcium 40 MG TABLET PO (21:02)
[2021-10-26] MEDS: LORazepam 1 MG TABLET PO (21:02)
[2021-10-26] MEDS: Magnesium Oxide 400 MG TABLET PO (21:03)
[2021-10-26] MEDS: amLODIPine Besylate 2.5 MG TABLET PO (21:03)
[2021-10-27] VITALS (7 sets, daily range): BP systolic 125–163; BP diastolic 67–88; PULSE 65–83; RESP 14–18; TEMP 36.7–37.2; O2SAT 94–96
[2021-10-27 06:32] LABS: Anion Gap 11 (12-20); Blood Urea Nitrogen 17 mg/dL (9-16); Calcium 8.9 mg/dL (8.4-10.2); Carbon Dioxide 28 mmol/L (22-29); Chloride 108 mmol/L (96-108); Cholesterol 107 mg/dL; Creatinine Clr Calc Pharmacy 49.9; Estimated Glomerular Filt Rate 58; Glucose Random 124 mg/dL (60-115); HDL Cholesterol 28 mg/dL; LDL Cholesterol Calculated 48 mg/dl; Potassium 3.9 mmol/L (3.3-5.1); Sodium 143 mmol/L (135-145); Triglycerides 158 mg/dL
[2021-10-27] MEDS: Omeprazole 20 MG CAPSULE.DR PO (08:45)
[2021-10-27] MEDS: Cholecalciferol (Vitamin D3) 25 MCG TABLET 50 MCG PO (08:45)
[2021-10-27] MEDS: allopurinoL 100 MG TABLET 200 MG PO (08:45)
[2021-10-27] MEDS: Thiamine HCL 100 MG TABLET PO (08:45)
[2021-10-27] MEDS: Aspirin Enteric Coated 81 MG TABLET.DR PO (08:45)
[2021-10-27] MEDS: Apixaban 2.5 MG TABLET PO (08:45)
[2021-10-27] MEDS: 0.9 % Sodium Chloride Flush 3 ML SYRINGE IVFLUSH ×3 (08:46→21:15)
--- NOTE | 2021-10-27 09:47 | PM.CNCAR ---
History of Present Illness History of Present Illness Date of Service: 10/27/21 Chief complaint: dizziness,unsteady gait Narrative: This is a cardiology consultation regarding preoperative risk stratification for carotid surgery. It seems that he was admitted with dizziness and unsteadiness and that led to diagnosis of severe left internal carotid artery stenosis. Hence plans for carotid endarterectomy this admission. Otherwise from the cardiac standpoint, he goes to [facility]. He has a history of CABG as well as surgical aortic valve replacement from 2002. 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 Cardiac catheterization prior to that showed occlusion of the MATTSON to LAD but [place] LAD had only moderate disease. He did not have any other grafts. Otherwise he also has a permanent pacemaker in place. He states that generally does quite well without any major limitations cardiac standpoint and does not have anginal-type symptoms or shortness of breath or in fact anything else at all. He states he is quite active without any concerns but difficult to say how many METS he achieves. Review of Systems Review of Systems: Yes all other systems are reviewed and are negative Cardiovascular: Cardiovascular: Reports as per HPI, Reports no additional cardiovascular complaints, Denies acrocyanosis, Denies cool extremities, Denies painful fingertips, Denies chest pain, Denies chest pain at rest, Denies diaphoresis, Denies syncope, Denies irregular heart rhythm, Denies claudication, Denies leg edema, Denies lightheadedness, Denies palpitations and Denies dyspnea Respiratory: Respiratory: Denies dyspnea Neurologic: Denies syncope Endocrine: Endocrine: Denies palpitations [facility] Past Medical History Medical History (Updated 10/27/21 @ 09:54 by Obi Frost MD) Diabetes NICM (nonischemic cardiomyopathy) Pacemaker PAF (paroxysmal atrial fibrillation) Family History Family History (Updated 10/27/21 @ 09:50 by Obi Frost MD) Mother CAD (coronary artery disease) Surgical History Surgical History (Updated 10/27/21 @ 09:54 by Obi Frost MD) History of right-sided carotid endarterectomy Hx of CABG Status post transcatheter aortic valve replacement (TAVR) using bioprosthesis Social History Social History Household Members: None Housing: House Do you presently have visiting nurse or other home services: No Alcohol intake: unknown Patient Tobacco Use Status: Tobacco use Unknown Use of substances other than those prescribed or required for medical reasons: No Currently Displaying Signs/Symptoms of Drug Intoxication Withdrawal: No Have you been hit, kicked, punched, or otherwise hurt by someone within the past year? If so, by whom?: No Do you feel safe in your current relationship?: No Is there a partner from a previous relationship who is making you feel unsafe now?: No Advance Directives: No Advance Directives Information Provided: Yes Do you have thoughts of harming others: None Do you have a plan to hurt others: No Plan Recently lost weight without trying: No Nutrition Risks: No Nutritional Risk service: No Current occupational status: retired [employer] Allergies Allergy/AdvReac Type Severity Reaction Status Date / Time acetaminophen [From Percocet] Allergy Unknown Verified 10/23/21 17:20 bee pollen [bee stings] Allergy Unknown Verified 10/23/21 17:20 carvedilol Allergy Unknown Verified 10/23/21 17:20 citalopram Allergy Unknown Verified 10/23/21 17:20 colesevelam [From WelChol] Allergy Unknown Verified 10/23/21 17:20 fluoxetine Allergy Unknown Verified 10/23/21 17:20 gabapentin Allergy Unresponsiv Verified 10/23/21 17:20 e lactose Allergy Unknown Verified 10/23/21 17:20 lisinopril Allergy Unknown Verified 10/23/21 17:20 mirtazapine [From Remeron] Allergy Unknown Verified 10/23/21 17:20 oxycodone [From Percocet] Allergy Unknown Verified 10/23/21 17:20 venlafaxine [From Effexor] Allergy Unknown Verified 10/23/21 17:20 Active Medications: Current Medications Acetaminophen (Acetaminophen 325 Mg Tablet) 650 mg PO Q6H PRN PRN Reason: Pain, Mild (Pain Scale 1-3) Allopurinol (Allopurinol 100 Mg Tablet) 200 mg PO DAILY [facility] Last Admin: 10/27/21 08:45 Dose: 200 mg Documented by: Amlodipine Besylate (Amlodipine Besylate 2.5 Mg Tablet) 2.5 mg PO BEDTIME [facility]; Protocol Last Admin: 10/26/21 21:03 Dose: 2.5 mg Documented by: Apixaban (Apixaban 2.5 Mg Tablet) 2.5 mg PO BID [facility] Last Admin: 10/27/21 08:45 Dose: 2.5 mg Documented by: Aspirin (Aspirin Enteric Coated 81 Mg Tablet.) 81 mg PO DAILY [facility] Last Admin: 10/27/21 08:45 Dose: 81 mg Documented by: Atorvastatin Calcium (Atorvastatin Calcium 40 Mg Tablet) 40 mg PO BEDTIME [facility] Last Admin: 10/26/21 21:02 Dose: 40 mg Documented by: Lorazepam (Lorazepam 1 Mg Tablet) 1 mg PO BEDTIME [facility] Last Admin: 10/26/21 21:02 Dose: 1 mg Documented by: Magnesium Oxide (Magnesium Oxide 400 Mg Tablet) 400 mg PO BEDTIME [facility] Last Admin: 10/26/21 21:03 Dose: 400 mg Documented by: Omeprazole (Omeprazole 20 Mg Capsule.) 20 mg PO DAILY@0900 [facility] Last Admin: 10/27/21 08:45 Dose: 20 mg Documented by: Ondansetron HCl (Ondansetron Hcl 4 Mg/2 Ml Vial) 4 mg IVPUSH Q8H PRN PRN Reason: Nausea and Vomiting Pharmacy Consult (Consult Rx Perform Med Rec) 1 each MISCELLANE ONCE PRN PRN Reason: Consult order Pharmacy Consult (Consult Rx Perform Med Rec) 1 each MISCELLANE ONCE PRN PRN Reason: Consult order Sodium Chloride (0.9 % Sodium Chloride Flush 3 Ml Syringe) 3 ml IVFLUSH QSHIFT [facility] Last Admin: 10/27/21 08:46 Dose: 3 ml Documented by: Tamsulosin HCl (Tamsulosin Hcl 0.4 Mg Capsule) 0.4 mg PO BEDTIME [facility] Last Admin: 10/26/21 21:02 Dose: 0.4 mg Documented by: Thiamine HCl (Thiamine Hcl 100 Mg Tablet) 100 mg PO DAILY [facility] Last Admin: 10/27/21 08:45 Dose: 100 mg Documented by: Vitamin D (Cholecalciferol (Vitamin D3) 25 Mcg Tablet) 50 mcg PO DAILY [facility] Last Admin: 10/27/21 08:45 Dose: 50 mcg Documented by: Home Medications Medication Instructions Recorded Confirmed Last Taken Type allopurinol 100 mg tablet 200 mg PO DAILY 10/23/21 10/23/21 10/23/21 History amlodipine 5 mg tablet 2.5 mg PO BEDTIME 10/23/21 10/23/2110/22/21 History apixaban 2.5 mg tablet (Eliquis) 2.5 mg PO BID 10/23/21 10/23/21 10/23/21 History aspirin 81 mg tablet,delayed 81 mg PO DAILY 10/23/21 10/23/21 10/23/21 History release atorvastatin 40 mg tablet 40 mg PO BEDTIME 10/23/21 10/23/21 10/22/21 History cholecalciferol (vitamin D3) 50 50 mcg PO DAILY 10/23/21 10/23/21 10/23/21 History mcg (2,000 unit) tablet lorazepam 1 mg tablet 1 mg PO BEDTIME 10/23/21 10/23/21 10/22/21 History magnesium oxide 400 mg (241.3 mg 400 mg PO DAILY 10/23/21 10/23/21 10/23/21 History magnesium) tablet melatonin 5 mg tablet 5 mg PO BEDTIME PRN 10/23/21 10/23/21 10/22/21 History omeprazole 20 mg capsule,delayed 20 mg PO DAILY 10/23/21 10/23/21 10/23/21 History release tamsulosin 0.4 mg capsule 0.4 mg PO BEDTIME 10/23/21 10/23/21 10/22/21 History thiamine HCl (vitamin B1) 100 mg 100 mg PO DAILY 10/23/21 10/23/21 10/23/21 History tablet Physical Exam Vital Signs: Vital Signs: Last Vital Signs Temp 98.1 F 10/27/21 03:56 Pulse 75 10/27/21 03:56 Resp 16 10/27/21 03:56 BP 125/68 10/27/21 03:56 Pulse Ox 96 10/27/21 03:56 BMI result Body Mass Index 30.2 Const: General: no acute distress HENMT: Other: Unremarkable Neck: Neck: Yes normal visual inspection Chest: Chest palpation & inspection: normal inspection of the chest Resp: Auscultation: no crackles and no wheezes Cardio: Palpation: normal PMI Heart sounds: S1 normal heart sound present, S2 normal heart sound present, no gallops, Murmur heart sound present (1/6 R[place] aortic area) and no rubs GI: Palpation (GI): Soft to palpation Back/Spine/Pelvis: Other: unremarkable Skin: Lesions: other Neuro: Cranial nerves: Yes Other cranial nerve findings present Extrem: General: Yes other Psych: Mental Status: other Objective Labs and Meds Result diagrams: 10/25/21 05:38 10/27/21 05:27 Lab results: Laboratory Results - last 24 hr 10/27/21 10/27/21 05:27 05:27 Sodium 143 Potassium 3.9 Chloride 108 Carbon Dioxide 28 Anion Gap 11 L BUN 17 H D Creatinine 1.20 Estim Creat Clear Calc 49.9 Estimated GFR 58 Random Glucose 124 H Calcium 8.9 Triglycerides Cancelled 158 Cholesterol Cancelled 107 LDL Cholesterol, Calc Cancelled 48 HDL Cholesterol Cancelled 28 ECG Interpretation: EKG shows ventricular paced rhythm at 67/Min and likely underlying atrial fibrillation. Assessment and Plan (1) Carotid stenosis, left: Status: Acute (2) Status post transcatheter aortic valve replacement (TAVR) using bioprosthesis: Status: Acute (3) NICM (nonischemic cardiomyopathy): Status: Acute (4) Hx of CABG: Status: Acute (5) History of right-sided carotid endarterectomy: Status: Acute (6) PAF (paroxysmal atrial fibrillation): Status: Acute (7) Pacemaker: Status: Acute (8) Preoperative cardiovascular examination: Status: Acute [facility] documentation reviewed. As discussed above, remote history of coronary artery bypass surgery with the LAD graft in 2002 as well as surgical aortic valve replacement. This was dysfunctional in early 2018 that led to a transcatheter valve in valve replacement. Preop catheterization showed occluded MATTS[place] graft but [place] LAD had only moderate disease and there was no significant disease elsewhere. Otherwise has paroxysmal atrial fibrillation as well as permanent pacemaker implantation. Has previously undergone right carotid endarterectomy. LVEF was documented to be around 35% in the last office note from [facility]- but improved to 50% later. We will get an echocardiogram today for evaluating this further. Otherwise, likely intermediate risk unless any concerning echocardiographic findings. In that case, we will make an addendum. Discussed with patient about perioperative risks from cardiac standpoint including perioperative infarction and he understands. Hold anticoagulation as required but minimize duration of interruption as his thromboembolic risk is quite high. Will also obtain information about his pacemaker. Procedures Date of Service Date of Service: 10/27/21
--- NOTE | 2021-10-27 10:55 | HO.PM.IMPN ---
Subjective Subjective Date of Service: 10/27/21 Interval History: the patient was seen and evaluated this morning Laying in bed, feels comfortable Able to ambulate using a walker Reported improved dizziness and unsteadiness upon walking Denies any fever, chills or shortness of breath No reported other overnight events. Review of Systems No fever, chills but reports unsteadiness on his feet No chest pain, palpitation No shortness of breath or coughing No abdominal pain, nausea or vomiting No urinary symptoms No any rash or wounds Physical Exam Vital Signs: Vital Signs: Last Vital Signs Temp 98.1 F 10/27/21 03:56 Pulse 75 10/27/21 10:23 Resp 16 10/27/21 03:56 BP 125/68 10/27/21 10:23 Pulse Ox 96 10/27/21 10:23 BMI result Body Mass Index 30.2 Const: Other: Constitutional : Alert, oriented, not in distress Neck : Normal inspection, Supple Cardiovascular : RRR, S1 S2, no lower extremity edema Respiratory : Good bilateral air entry, no crackles, wheezes or rhonchi Gastrointestinal: soft, lax, Normal bowel sounds, Non tender Skin : Warm, Dry Neurological : Alert & oriented x3, No focal deficit, normal cranial nerve exam, within normal cerebellar examination, Objective Data Active Medications Acetaminophen (Acetaminophen 325 Mg Tablet) 650 mg PO Q6H PRN PRN Reason: Pain, Mild (Pain Scale 1-3) Allopurinol (Allopurinol 100 Mg Tablet) 200 mg PO DAILY [facility] Last Admin: 10/27/21 08:45 Dose: 200 mg Documented by: ALISSA Amlodipine Besylate (Amlodipine Besylate 2.5 Mg Tablet) 2.5 mg PO BEDTIME [facility]; Protocol Last Admin: 10/26/21 21:03 Dose: 2.5 mg Documented by: BLANCHERISAndressa Apixaban (Apixaban 2.5 Mg Tablet) 2.5 mg PO BID [facility] Last Admin: 10/27/21 08:45 Dose: 2.5 mg Documented by: ALISSA Aspirin (Aspirin Enteric Coated 81 Mg Tablet.) 81 mg PO DAILY [facility] Last Admin: 10/27/21 08:45 Dose: 81 mg Documented by: ALISSA Atorvastatin Calcium (Atorvastatin Calcium 40 Mg Tablet) 40 mg PO BEDTIME [facility] Last Admin: 10/26/21 21:02 Dose: 40 mg Documented by: TOYIN Lorazepam (Lorazepam 1 Mg Tablet) 1 mg PO BEDTIME [facility] Last Admin: 10/26/21 21:02 Dose: 1 mg Documented by: TOYIN Magnesium Oxide (Magnesium Oxide 400 Mg Tablet) 400 mg PO BEDTIME [facility] Last Admin: 10/26/21 21:03 Dose: 400 mg Documented by: TOYIN Omeprazole (Omeprazole 20 Mg Capsule.) 20 mg PO DAILY@0900 [facility] Last Admin: 10/27/21 08:45 Dose: 20 mg Documented by: ALISSA Ondansetron HCl (Ondansetron Hcl 4 Mg/2 Ml Vial) 4 mg IVPUSH Q8H PRN PRN Reason: Nausea and Vomiting Pharmacy Consult (Consult Rx Perform Med Rec) 1 each MISCELLANE ONCE PRN PRN Reason: Consult order Pharmacy Consult (Consult Rx Perform Med Rec) 1 each MISCELLANE ONCE PRN PRN Reason: Consult order Sodium Chloride (0.9 % Sodium Chloride Flush 3 Ml Syringe) 3 ml IVFLUSH QSHIFT [facility] Last Admin: 10/27/21 08:46 Dose: 3 ml Documented by: ALISSA Tamsulosin HCl (Tamsulosin Hcl 0.4 Mg Capsule) 0.4 mg PO BEDTIME [facility] Last Admin: 10/26/21 21:02 Dose: 0.4 mg Documented by: TOYIN Thiamine HCl (Thiamine Hcl 100 Mg Tablet) 100 mg PO DAILY [facility] Last Admin: 10/27/21 08:45 Dose: 100 mg Documented by: ALISSA Vitamin D (Cholecalciferol (Vitamin D3) 25 Mcg Tablet) 50 mcg PO DAILY [facility] Last Admin: 10/27/21 08:45 Dose: 50 mcg Documented by: ALISSA Labs CBC & Chem 7: 10/25/21 05:38 10/27/21 05:27 Labs: Laboratory Results - last 24 hr 10/27/21 10/27/21 05:27 05:27 Anion Gap 11 L Estim Creat Clear Calc 49.9 Estimated GFR 58 Random Glucose 124 H Calcium 8.9 Triglycerides Cancelled 158 Cholesterol Cancelled 107 LDL Cholesterol, Calc Cancelled 48 HDL Cholesterol Cancelled 28 Assessment and Plan (1) PAF (paroxysmal atrial fibrillation): Status: Acute (2) Abnormal gait: Status: Acute (3) Unsteadiness on feet: Status: Acute Assessment and Plan: An 86 years old male with PMH of carotid stenosis, atrial fibrillation post ppm, BPH among others who presented to the hospital complaining of new onset dizziness and unsteadiness for 1 day prior to admission. Abnormal gait Unsteadiness Could be secondary to central or peripheral causes CT, CTA did not show any acute findings pending MRI, postpone as a result of having ppm, seems to be 100% dependent on it, to decide after discussion with Cardiology Continue home medications of aspirin statin Neurology input appreciated PT OT Left carotid stenosis Per CTA Severe stenosis of the proximal left internal carotid artery estimated as greater than 90% with only threadlike flow across a short segment. Vascular surgeon input appreciated, planned surgery during this admission for high risk cardiology evaluation for preop clearance, to do an echo, intermediate risk, can hold anticoagulation as required Atrial fibrillation On pacemaker continue Eliquis home dose DVT PPX Eliquis Quality Stroke Does the patient have a stroke diagnosis?: No VTE Prior VTE?: No VTE Risk Level:: Medical - moderate - high VTE Device Contraindication: Treatment Not Indicated VTE Drug Contraindication: N/A - Med Ordered
--- NOTE | 2021-10-27 12:30 | PM.EVENT ---
Event Note Date of Service: 10/27/21 Event Note: Medtronic dual chamber pacemaker interrogation today. Battery 12.7 years, AAI -DDD mode, low rate 60, upper tracking rate 110. Apace 0.7% of time, Vpace 98.6% of time, in persistent/ chronic atrial fibrillation, v threshold 0.5V at 0.4ms, sensitivities normal, no VT, pt activity 1.8 hr/ day. Device is Kelley XT DR HODGES. RA and RV leads are medtronic capsure fix novus MRI surescan. Reviewed with rosa maria Ruby. This device and these leads are MRI compatible. He has no known capped leads in place. He may proceed with MRI and will need to have Medtronic Rep present to switch device into safe mode for the procedure. Order form completed by me and faxed to MRI department. Hospitalist notified.
--- NOTE | 2021-10-27 13:51 | HO.VASCPN ---
Subjective Subjective Date of Service: 10/27/21 Patient reports: no new complaints and feels better Interval history: Very pleasant 86-year-old gentleman presents with high-grade left carotid stenosis. He has had no interval issues overnight. Appears to be doing relatively well. Cardiology consult was obtained. They have seen him and he has already actually had his echo. He is now for routine follow-up. Of note daughter is at bedside. Physical Exam Vital Signs: Vital Signs: Last Vital Signs Temp 98.3 F 10/27/21 11:49 Pulse 65 10/27/21 11:49 Resp 18 10/27/21 11:49 BP 144/87 H 10/27/21 11:49 Pulse Ox 96 10/27/21 11:49 BMI result Body Mass Index 30.2 Const: General: cooperative, healthy appearing and no acute distress Orientation/consciousness: oriented to person, oriented to place and oriented to time HENMT: Head: Yes normal to inspection Neck: Carotids: no bruits Chest: Chest palpation & inspection: normal inspection of the chest Resp: Effort & Inspection: normal respiratory effort and able to speak in complete sentences Auscultation: clear to auscultation bilaterally Cardio: Rate: regular rate Heart sounds: S1 normal heart sound present and S2 normal heart sound present GI: Inspection: Yes normal to inspection Skin: General skin exam: no rashes or lesions noted Wounds: no wounds Neuro: General: oriented to person, oriented to place, oriented to time and CN's II-XI intact bilaterally Extrem: General: Yes normal to inspection, Yes full ROM and Yes no clubbing, cyanosis or edema Psych: Appearance: grossly normal and well kempt Speech and movement: Normal speech and movement present Affect: normal affect Progress Note: A&P Assessment and plan (1) Carotid stenosis, left: Status: Acute Assessment and Plan: In short patient has severe left carotid stenosis near string sign. He is in need of urgent carotid endarterectomy. I relayed these findings to the patient and daughter. They are in agreement and would like to proceed. Would like to expedite a soon as possible. Cardiology risk stratification has been obtained. He is currently being maintained on low-dose Eliquis. We will transition that to heparin. Await final report from Cardiology. I am in hopes that I can get him in by this for his operation. Thank you for allowing us to assist in his care. If there are any questions or concerns please do not hesitate to contact us. Fall Risk Details Current Medications: Current Medications Acetaminophen (Acetaminophen 325 Mg Tablet) 650 mg PO Q6H PRN PRN Reason: Pain, Mild (Pain Scale 1-3) Allopurinol (Allopurinol 100 Mg Tablet) 200 mg PO DAILY [facility] Last Admin: 10/27/21 08:45 Dose: 200 mg Documented by: Amlodipine Besylate (Amlodipine Besylate 2.5 Mg Tablet) 2.5 mg PO BEDTIME [facility]; Protocol Last Admin: 10/26/21 21:03 Dose: 2.5 mg Documented by: Aspirin (Aspirin Enteric Coated 81 Mg Tablet.) 81 mg PO DAILY [facility] Last Admin: 10/27/21 08:45 Dose: 81 mg Documented by: Atorvastatin Calcium (Atorvastatin Calcium 40 Mg Tablet) 40 mg PO BEDTIME [facility] Last Admin: 10/26/21 21:02 Dose: 40 mg Documented by: Heparin Sodium (Porcine) (Heparin Sodium,Porcine 5,000 Unit/Ml Vial) 3,600 unit 40 unit/kg (3600 unit) IVPUSH PROTOCOL BOLUS PRN; Protocol PRN Reason: 40 unit/kg - Heparin Protocol Heparin Sodium (Porcine) (Heparin Sodium,Porcine 5,000 Unit/Ml Vial) 7,200 unit 80 unit/kg (7200 unit) IVPUSH PROTOCOL BOLUS PRN; Protocol PRN Reason: 80 unit/kg - Heparin Protocol Heparin Sodium/Sodium Chloride () 25,000 unit in 250 mls @ 0 mls/hr IVCONT .Q0M [facility]; Protocol Lorazepam (Lorazepam 1 Mg Tablet) 1 mg PO BEDTIME [facility] Last Admin: 10/26/21 21:02 Dose: 1 mg Documented by: Magnesium Oxide (Magnesium Oxide 400 Mg Tablet) 400 mg PO BEDTIME [facility] Last Admin: 10/26/21 21:03 Dose: 400 mg Documented by: Omeprazole (Omeprazole 20 Mg Capsule.) 20 mg PO DAILY@0900 [facility] Last Admin: 10/27/21 08:45 Dose: 20 mg Documented by: Ondansetron HCl (Ondansetron Hcl 4 Mg/2 Ml Vial) 4 mg IVPUSH Q8H PRN PRN Reason: Nausea and Vomiting Pharmacy Consult (Consult Rx Perform Med Rec) 1 each MISCELLANE ONCE PRN PRN Reason: Consult order Pharmacy Consult (Consult Rx Perform Med Rec) 1 each MISCELLANE ONCE PRN PRN Reason: Consult order Sodium Chloride (0.9 % Sodium Chloride Flush 3 Ml Syringe) 3 ml IVFLUSH QSHIFT [facility] Last Admin: 10/27/21 08:46 Dose: 3 ml Documented by: Tamsulosin HCl (Tamsulosin Hcl 0.4 Mg Capsule) 0.4 mg PO BEDTIME [facility] Last Admin: 10/26/21 21:02 Dose: 0.4 mg Documented by: Thiamine HCl (Thiamine Hcl 100 Mg Tablet) 100 mg PO DAILY [facility] Last Admin: 10/27/21 08:45 Dose: 100 mg Documented by: Vitamin D (Cholecalciferol (Vitamin D3) 25 Mcg Tablet) 50 mcg PO DAILY [facility] Last Admin: 10/27/21 08:45 Dose: 50 mcg Documented by: Time Spent With Patient Time: Total time spent is greater than 50% in coordination of care (as documented) at patient's floor/unit and/or counseling patient: Time with patient: 15 - 24 minutes Procedures Date of Service Date of Service: 10/27/21 Quality Stroke Does the patient have a stroke diagnosis?: No VTE Prior VTE?: No VTE Risk Level:: Medical - moderate - high VTE Device Contraindication: Treatment Not Indicated VTE Drug Contraindication: N/A - Med Ordered
--- NOTE | 2021-10-27 16:49 | MHC.CM.PN ---
CM MET W/PT'S DTR/HCP AT BEDSIDE, PT'S DTR CONCERNED D/T PT NEEDING STR AND HAVING HX OF BEING KICKED OUT OF [facility] AND [facility] D/T PT BEING MEAN/NONCOMPLIANT W/STAFF, SHE ALSO WANTED PROVIDER TO BE AWARE HE DRINKS ONE LARGE GLASS OF VODKA DAILY, PT CURRENTLY DOES NOT APPEAR TO BE IN WITHDRAWAL, HOSPITALIST MADE AWARE VIA TIGER CONNECT. ANTIC PT WILL HAVE VASCULAR SURGERY W/DR ESPANA TUESDAY. D/C PLAN: HOME W/SERVICES VS STR
--- NOTE | 2021-10-27 21:08 | CA_ITS ---
Transthoracic Echocardiogram Patient (Last, First, Middle): Steven Whitten, Gender: Male Date of : 1935 Age: 86 Procedure Date: 10/27/2021 Procedure Type: Transthoracic Echocardiogram [place] [facility] [place]: 172.72 cm Weight: 89.81 kg BSA: 2.04 m2 Heart Rate: bpm BP: 125 / 68 mmHg Home Health Clinician: Referring MD: Obi Frost MD Symptoms: Preop vascular surgery Study Quality: Technically Difficult ECG Rhythm: Atrial Fibrillation/V paced Conclusions: - The left ventricular systolic function is normal. The calculated ejection fraction is 55% by biplane method. - A bioprosthetic aortic valve is present. The prosthetic aortic valve appears to be functioning normally. - Mean gradient across the mitral valve 3 mm Hg at 62/Min; cannot exclude mild mitral stenosis. 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 Findings Left Ventricle Normal left ventricular cavity size. There is severely increased left ventricular wall thickness. The left ventricular systolic function is normal. The calculated ejection fraction is 55% by biplane method. Regional wall motion abnormalities can not be excluded due to suboptimal endocardial definition. Diastolic function is indeterminate on the basis of available data. Right Ventricle Normal right ventricular cavity size. There is a pacemaker wire seen in the right ventricle. Likely reduced function; TAPSE inaccurate. Atria Both atria are normal in size. Aortic Valve A bioprosthetic aortic valve is present. The prosthetic aortic valve appears to be functioning normally. The aortic valve was not well visualized. The peak aortic velocity is 1.85 m/s with a calculated peak gradient of 14 mmHg. The mean gradient is 7 mmHg. The aortic valve area is 1.63 cm2. Mitral Valve There is moderate mitral annular calcification. There is trace mitral valve regurgitation. Mean gradient across the mitral valve 3 mm Hg at 62/Min; cannot exclude mild mitral stenosis. Pulmonic Valve The pulmonic valve was not well visualized. Tricuspid Valve There is mild tricuspid valve regurgitation. The pulmonary artery systolic pressure is normal. 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 Venous The inferior vena cava was not well visualized. The inferior vena cava is normal in size. Pericardium/Pleural There is no evidence of pericardial effusion. Prior Study Comparison No prior study available for comparison. Measurements 2D Linear Measurements IVSd: 1.56 0.6-0.9/0.6-1.0 cm LVIDd: 4.18 3.9-5.3/4.2-5.9 cm LVIDd Index: 2.05 2.4-3.2/2.2-3.1 cm/m2 LVIDs: 2.88 2.0-3.6 cm LVPWd: 1.54 0.7-1.1 cm Ao Root: 3.80 2.1-3.5 cm LA Diam: 4.40 2.7-3.8/3.0-4.0 cm LAIDs Index: 2.16 1.5-2.3 cm/m2 LV Mass: 325.31 67-162/88-224 g LV Mass Index: 159.46 43-95/49-115 g/m2 LVOT Diam: 2.10 3.0+(-)1.3 cm 2D Systolic Function EF 4C: 61.00 >55% EF 2C: 50.90 >55% EF BiP: 55.10 >55% Mitral Valve MV VTI: 0.45 MV Pk Jensen: 1.46 MV Mn Jensen: 0.82 MV Pk Grad: 9.00 MV Mn Grad: 4.00 MV Pk E: 1.19 MV Decel Time: 482.00 E'Lateral: 7.83 E'Medial: 5.22 E/E' Med: 22.80 E/E' Lat: 15.20 PHT: 141.00 MVA PHT: 1.56 MVA Continuity: 1.37 Decel [place]: 2.47 Aortic Valve AoV Pk Jensen: 1.85 AoV Mn Jensen: 1.25 AoV VTI: 0.38 AoV Pk Grad: 14.00 Aov Mn Grad: 7.00 IVETTE Cont.VTI: 1.63 LVOT LVOT Pk Jensen: 0.73 LVOT Mn Jensen: 0.48 LVOT VTI: 0.18 LVOT Pk Grad: 2.00 LVOT Mn Grad: 1.00 LVOT Diam: 2.10 LVOT Area: 3.46 Diastolic Function MV Pk E: 1.19 E'Medial: 5.22 E/E' Med: 22.80 E' Laterial: 7.83 E/E' Lat: 15.20 Right Ventricle TAPSE (mm): 25.00 Tricuspid Valve TR Pk Jensen: 2.57 TR Pk Grad: 26.00 Great Vessels Aorta Ao Root-2D: 3.80 2.0-3.7 cm Ao Asc: 4.20 2.1-3.4 cm Pulmonary Valve PV Pk Jensen: 1.24 Peak PV Grad: 6.00 Updated in Other Vendor System with Status of Final Obi Frost MD electronically signed on 10/27/2021 2:45:20 PM with status of Final
[2021-10-27 21:12] LABS: INTERNATIONAL NORM RATIO 1.1 (0.9-1.1); Prothrombin Time 12.7 SEC (9.9-13.0)
[2021-10-27] MEDS: amLODIPine Besylate 2.5 MG TABLET PO (21:14)
[2021-10-27 21:15] LABS: PTT Heparin Drip 32.8 SEC (53-77.9)
[2021-10-27] MEDS: Tamsulosin HCL 0.4 MG CAPSULE PO (21:15)
[2021-10-27] MEDS: Magnesium Oxide 400 MG TABLET PO (21:15)
[2021-10-27] MEDS: LORazepam 1 MG TABLET PO (21:15)
[2021-10-27] MEDS: Atorvastatin Calcium 40 MG TABLET PO (21:20)
[2021-10-27] MEDS: Heparin Sodium,Porcine/1/2NS 25,000 UNIT/250 ML IV.SOLN 12.6 UNIT IVCONT (22:17)
[2021-10-28] VITALS (8 sets, daily range): BP systolic 114–176; BP diastolic 66–92; PULSE 60–86; RESP 16–17; TEMP 36.1–37; O2SAT 93–98
[2021-10-28 04:15] LABS: Mean Corpuscular Volume 97.1 fL (80.0-98.0); PLT CLUMP 1
[2021-10-28 04:16] LABS: Hematocrit 39.8 % (42.0-52.0); Hemoglobin 13.4 g/dl (14.0-18.0); Mean Corpuscular HGB Conc 33.7 g/dl (31.0-36.0); Mean Corpuscular Hemoglobin 32.7 pg (27.0-33.0); Red Cell Distribution Width 13.3 % (11.0-16.0)
[2021-10-28 04:18] LABS: White Blood Count 8.3 X10*3/uL (4.8-10.8)
[2021-10-28 04:23] LABS: PTT Heparin Drip 93.3 SEC (53-77.9)
[2021-10-28 04:51] LABS: Mean Platelet Volume 10.2 fL (9.4-12.4)
[2021-10-28 05:15] LABS: Anion Gap 15 (12-20); Blood Urea Nitrogen 19 mg/dL (9-16); Calcium 8.9 mg/dL (8.4-10.2); Carbon Dioxide 21 mmol/L (22-29); Chloride 110 mmol/L (96-108); Creatinine Clr Calc Pharmacy 48.3; Estimated Glomerular Filt Rate 56; Glucose Random 127 mg/dL (60-115); Potassium 3.9 mmol/L (3.3-5.1); Sodium 142 mmol/L (135-145)
[2021-10-28] MEDS: 0.9 % Sodium Chloride Flush 3 ML SYRINGE IVFLUSH ×2 (09:27→16:10)
[2021-10-28] MEDS: Omeprazole 20 MG CAPSULE.DR PO (09:28)
[2021-10-28] MEDS: allopurinoL 100 MG TABLET 200 MG PO (09:28)
[2021-10-28] MEDS: Aspirin Enteric Coated 81 MG TABLET.DR PO (09:28)
[2021-10-28] MEDS: Thiamine HCL 100 MG TABLET PO (09:28)
[2021-10-28] MEDS: Cholecalciferol (Vitamin D3) 25 MCG TABLET 50 MCG PO (09:28)
--- NOTE | 2021-10-28 11:34 | P.PNVS_ITS ---
Subjective Subjective Date of Service: 10/28/21 Patient reports: no new complaints and feels better Interval history: Patient seen and examined with the hospitalist team this morning. No events overnight. Cardiology evaluation has been completed. He is now for routine follow-up. He is currently being maintained on a heparin drip. Physical Exam Vital Signs: Vital Signs: Last Vital Signs Temp 98.4 F 10/28/21 03:40 Pulse 60 10/28/21 10:05 Resp 17 10/28/21 03:40 BP 114/66 10/28/21 10:05 Pulse Ox 96 10/28/21 10:05 BMI result Body Mass Index 30.2 Const: General: cooperative, healthy appearing and no acute distress Orientation/consciousness: oriented to person, oriented to place and oriented to time HENMT: Head: Yes normal to inspection Neck: Carotids: no bruits Chest: Chest palpation & inspection: normal inspection of the chest Resp: Effort & Inspection: normal respiratory effort and able to speak in complete sentences Auscultation: clear to auscultation bilaterally Cardio: Rate: regular rate Heart sounds: S1 normal heart sound present and S2 normal heart sound present GI: Inspection: Yes normal to inspection Skin: General skin exam: no rashes or lesions noted Wounds: no wounds Neuro: General: oriented to person, oriented to place, oriented to time and CN's II-XI intact bilaterally Extrem: General: Yes normal to inspection, Yes full ROM and Yes no clubbing, cyanosis or edema Psych: Appearance: grossly normal and well kempt Speech and movement: Normal speech and movement present Affect: normal affect Progress Note: A&P Assessment and plan (1) Carotid stenosis, left: Status: Acute Assessment and Plan: In short patient has high-grade critical left carotid stenosis. Cardiology input was appreciated. He is stable for surgical intervention. He will require a left carotid endarterectomy. Risks complications and benefits were discussed in detail with the patient. He demonstrated a clear understanding. This was also discussed with him and the daughter yesterday as well. They are in agreement and would like to move forward. He is scheduled for 730 tomorrow morning. Heparin drip will be discontinued at midnight tonight. Fall Risk Details Current Medications: Current Medications Acetaminophen (Acetaminophen 325 Mg Tablet) 650 mg PO Q6H PRN PRN Reason: Pain, Mild (Pain Scale 1-3) Allopurinol (Allopurinol 100 Mg Tablet) 200 mg PO DAILY [facility] Last Admin: 10/28/21 09:28 Dose: 200 mg Documented by: Amlodipine Besylate (Amlodipine Besylate 2.5 Mg Tablet) 2.5 mg PO BEDTIME [facility]; Protocol Last Admin: 10/27/21 21:14 Dose: 2.5 mg Documented by: Aspirin (Aspirin Enteric Coated 81 Mg Tablet.) 81 mg PO DAILY [facility] Last Admin: 10/28/21 09:28 Dose: 81 mg Documented by: Atorvastatin Calcium (Atorvastatin Calcium 40 Mg Tablet) 40 mg PO BEDTIME [facility] Last Admin: 10/27/21 21:20 Dose: 40 mg Documented by: Heparin Sodium (Porcine) (Heparin Sodium,Porcine 5,000 Unit/Ml Vial) 3,600 unit 40 unit/kg (3600 unit) IVPUSH PROTOCOL BOLUS PRN; Protocol PRN Reason: 40 unit/kg - Heparin Protocol Heparin Sodium (Porcine) (Heparin Sodium,Porcine 5,000 Unit/Ml Vial) 7,200 unit 80 unit/kg (7200 unit) IVPUSH PROTOCOL BOLUS PRN; Protocol PRN Reason: 80 unit/kg - Heparin Protocol Heparin Sodium/Sodium Chloride () 25,000 unit in 250 mls @ 0 mls/hr IVCONT .Q0M [facility]; Protocol Last Titration: 10/28/21 06:01 Dose: 11 units/kg/hr, 9.9 mls/hr Documented by: Lorazepam (Lorazepam 1 Mg Tablet) 1 mg PO BEDTIME [facility] Last Admin: 10/27/21 21:15 Dose: 1 mg Documented by: Magnesium Oxide (Magnesium Oxide 400 Mg Tablet) 400 mg PO BEDTIME [facility] Last Admin: 10/27/21 21:15 Dose: 400 mg Documented by: Omeprazole (Omeprazole 20 Mg Capsule.) 20 mg PO DAILY@0900 [facility] Last Admin: 10/28/21 09:28 Dose: 20 mg Documented by: Ondansetron HCl (Ondansetron Hcl 4 Mg/2 Ml Vial) 4 mg IVPUSH Q8H PRN PRN Reason: Nausea and Vomiting Pharmacy Consult (Consult Rx Perform Med Rec) 1 each MISCELLANE ONCE PRN PRN Reason: Consult order Pharmacy Consult (Consult Rx Perform Med Rec) 1 each MISCELLANE ONCE PRN PRN Reason: Consult order Sodium Chloride (0.9 % Sodium Chloride Flush 3 Ml Syringe) 3 ml IVFLUSH QSHIFT [facility] Last Admin: 10/28/21 09:27 Dose: 3 ml Documented by: Tamsulosin HCl (Tamsulosin Hcl 0.4 Mg Capsule) 0.4 mg PO BEDTIME [facility] Last Admin: 10/27/21 21:15 Dose: 0.4 mg Documented by: Thiamine HCl (Thiamine Hcl 100 Mg Tablet) 100 mg PO DAILY [facility] Last Admin: 10/28/21 09:28 Dose: 100 mg Documented by: Vitamin D (Cholecalciferol (Vitamin D3) 25 Mcg Tablet) 50 mcg PO DAILY [facility] Last Admin: 10/28/21 09:28 Dose: 50 mcg Documented by: Time Spent With Patient Time: Total time spent is greater than 50% in coordination of care (as documented) at patient's floor/unit and/or counseling patient: Time with patient: 25 - 35 minutes Procedures Date of Service Date of Service: 10/28/21 Quality Stroke Does the patient have a stroke diagnosis?: No VTE Prior VTE?: No VTE Risk Level:: Medical - moderate - high VTE Device Contraindication: Treatment Not Indicated VTE Drug Contraindication: N/A - Med Ordered
--- NOTE | 2021-10-28 11:50 | HO.ANESPROP2 ---
Documented by User: Peri Noyola NP 10/28/21 11:56 HPI - Anesthesia Eval Consult details Narrative: 86yo M for Left Carotid Endarterectomy admitted [facility] [place]/24/21 with new onset dizziness. Found to have severe left carotid stenosis (>90%) on CTA. Cardiac cleared at [facility] Echocardiogram as today with LVEF 55% and normally functioning TAVR valve.? Possible mild mitral stenosis. Mild ascending aortic dilatation.? May proceed as planned.? Intermediate cardiac risk.? Discussed with vascular surgery. See separate note from nurse practitioner about his pacemaker. *Multiple Med Allergies* PMFSH Active Problems Active Problems: All Active Problems (Updated 10/27/21 @ 09:54 by Obi Frost MD) Preoperative cardiovascular examination (Acute) Pacemaker (Acute) PAF (paroxysmal atrial fibrillation) (Acute) History of right-sided carotid endarterectomy (Acute) Hx of CABG (Acute) Status post transcatheter aortic valve replacement (TAVR) using bioprosthesis (Acute) NICM (nonischemic cardiomyopathy) (Acute) Abnormal gait (Acute) Unsteadiness on feet (Acute) Ataxia due to acute cerebrovascular disease (Acute) Carotid stenosis, left (Acute) Cerebrovascular accident (Acute) Past Medical History Medical History Diabetes NICM (nonischemic cardiomyopathy) Pacemaker PAF (paroxysmal atrial fibrillation) Family History Family History Mother CAD (coronary artery disease) Surgical History Surgical History History of right-sided carotid endarterectomy Hx of CABG Status post transcatheter aortic valve replacement (TAVR) using bioprosthesis Social History Social History Household Members: None Housing: House Do you presently have visiting nurse or other home services: No Alcohol intake: unknown Patient Tobacco Use Status: Former Tobacco user Use of substances other than those prescribed or required for medical reasons: No Currently Displaying Signs/Symptoms of Drug Intoxication Withdrawal: No Have you been hit, kicked, punched, or otherwise hurt by someone within the past year? If so, by whom?: No Do you feel safe in your current relationship?: No Is there a partner from a previous relationship who is making you feel unsafe now?: No Are you DNR?: No Advance Directives: No Advance Directives Information Provided: Yes Do you have thoughts of harming others: None Do you have a plan to hurt others: No Plan Recently lost weight without trying: No Nutrition Risks: No Nutritional Risk service: No Current occupational status: retired Meds Allergies Allergy/AdvReac Type Severity Reaction Status Date / Time acetaminophen [From Percocet] Allergy Unknown Verified 10/23/21 17:20 bee pollen [bee stings] Allergy Unknown Verified 10/23/21 17:20 carvedilol Allergy Unknown Verified 10/23/21 17:20 citalopram Allergy Unknown Verified 10/23/21 17:20 colesevelam [From WelChol] Allergy Unknown Verified 10/23/21 17:20 fluoxetine Allergy Unknown Verified 10/23/21 17:20 gabapentin Allergy Unresponsiv Verified 10/23/21 17:20 e lactose Allergy Unknown Verified 10/23/21 17:20 lisinopril Allergy Unknown Verified 10/23/21 17:20 mirtazapine [From Remeron] Allergy Unknown Verified 10/23/21 17:20 oxycodone [From Percocet] Allergy Unknown Verified 10/23/21 17:20 venlafaxine [From Effexor] Allergy Unknown Verified 10/23/21 17:20 Active Medications: Current Medications Acetaminophen (Acetaminophen 325 Mg Tablet) 650 mg PO Q6H PRN PRN Reason: Pain, Mild (Pain Scale 1-3) Allopurinol (Allopurinol 100 Mg Tablet) 200 mg PO DAILY [facility] Last Admin: 10/28/21 09:28 Dose: 200 mg Documented by: Amlodipine Besylate (Amlodipine Besylate 2.5 Mg Tablet) 2.5 mg PO BEDTIME [facility]; Protocol Last Admin: 10/27/21 21:14 Dose: 2.5 mg Documented by: Aspirin (Aspirin Enteric Coated 81 Mg Tablet.) 81 mg PO DAILY [facility] Last Admin: 10/28/21 09:28 Dose: 81 mg Documented by: Atorvastatin Calcium (Atorvastatin Calcium 40 Mg Tablet) 40 mg PO BEDTIME [facility] Last Admin: 10/27/21 21:20 Dose: 40 mg Documented by: Heparin Sodium (Porcine) (Heparin Sodium,Porcine 5,000 Unit/Ml Vial) 3,600 unit 40 unit/kg (3600 unit) IVPUSH PROTOCOL BOLUS PRN; Protocol PRN Reason: 40 unit/kg - Heparin Protocol Heparin Sodium (Porcine) (Heparin Sodium,Porcine 5,000 Unit/Ml Vial) 7,200 unit 80 unit/kg (7200 unit) IVPUSH PROTOCOL BOLUS PRN; Protocol PRN Reason: 80 unit/kg - Heparin Protocol Cefazolin Sodium/Dextrose (Ancef) 2 gm in 50 mls @ 100 mls/hr IV PREOP ONE Stop: 10/28/21 12:05 Heparin Sodium/Sodium Chloride () 25,000 unit in 250 mls @ 0 mls/hr IVCONT .Q0M [facility]; Protocol Stop: 10/29/21 00:05 Lorazepam (Lorazepam 1 Mg Tablet) 1 mg PO BEDTIME [facility] Last Admin: 10/27/21 21:15 Dose: 1 mg Documented by: Magnesium Oxide (Magnesium Oxide 400 Mg Tablet) 400 mg PO BEDTIME [facility] Last Admin: 10/27/21 21:15 Dose: 400 mg Documented by: Omeprazole (Omeprazole 20 Mg Capsule.Dr) 20 mg PO DAILY@0900 [facility] Last Admin: 10/28/21 09:28 Dose: 20 mg Documented by: Ondansetron HCl (Ondansetron Hcl 4 Mg/2 Ml Vial) 4 mg IVPUSH Q8H PRN PRN Reason: Nausea and Vomiting Pharmacy Consult (Consult Rx Perform Med Rec) 1 each MISCELLANE ONCE PRN PRN Reason: Consult order Pharmacy Consult (Consult Rx Perform Med Rec) 1 each MISCELLANE ONCE PRN PRN Reason: Consult order Sodium Chloride (0.9 % Sodium Chloride Flush 3 Ml Syringe) 3 ml IVFLUSH QSHIFT [facility] Last Admin: 10/28/21 09:27 Dose: 3 ml Documented by: Tamsulosin HCl (Tamsulosin Hcl 0.4 Mg Capsule) 0.4 mg PO BEDTIME [facility] Last Admin: 10/27/21 21:15 Dose: 0.4 mg Documented by: Thiamine HCl (Thiamine Hcl 100 Mg Tablet) 100 mg PO DAILY [facility] Last Admin: 10/28/21 09:28 Dose: 100 mg Documented by: Vitamin D (Cholecalciferol (Vitamin D3) 25 Mcg Tablet) 50 mcg PO DAILY [facility] Last Admin: 10/28/21 09:28 Dose: 50 mcg Documented by: Home Medications Medication Instructions Recorded Confirmed Last Taken Type allopurinol 100 mg tablet 200 mg PO DAILY 10/23/21 10/23/21 10/23/21 History amlodipine 5 mg tablet 2.5 mg PO BEDTIME 10/23/21 10/23/21 10/22/21 History apixaban 2.5 mg tablet (Eliquis) 2.5 mg PO BID 10/23/21 10/23/21 10/23/21 History aspirin 81 mg tablet,delayed 81 mg PO DAILY 10/23/21 10/23/21 10/23/21 History release atorvastatin 40 mg tablet 40 mg PO BEDTIME 10/23/21 10/23/21 10/22/21 History cholecalciferol (vitamin D3) 50 50 mcg PO DAILY 10/23/21 10/23/21 10/23/21 History mcg (2,000 unit) tablet lorazepam 1 mg tablet 1 mg PO BEDTIME 10/23/21 10/23/21 10/22/21 History magnesium oxide 400 mg (241.3 mg 400 mg PO DAILY 10/23/21 10/23/21 10/23/21 History magnesium) tablet melatonin 5 mg tablet 5 mg PO BEDTIME PRN 10/23/21 10/23/21 10/22/21 History omeprazole 20 mg capsule,delayed 20 mg PO DAILY 10/23/21 10/23/21 10/23/21 History release tamsulosin 0.4 mg capsule 0.4 mg PO BEDTIME 10/23/21 10/23/21 10/22/21 History thiamine HCl (vitamin B1) 100 mg 100 mg PO DAILY 10/23/21 10/23/21 10/23/21 History tablet Exam Exam Date and Time: October 28, 2021 1150 Height,Weight and Vital Signs: Height 5 ft 8 in Weight 90 kg Last Vital Signs Temp 98.4 F 10/28/21 03:40 Pulse 60 10/28/21 10:05 Resp 17 10/28/21 03:40 BP 114/66 10/28/21 10:05 Pulse Ox 96 10/28/21 10:05 Pertinent Lab Results Pertinent Lab Results: Laboratory Tests 10/23/21 10/23/21 10/23/21 17:18 18:25 18:25 WBC 7.6 RBC 4.27 L Hgb 14.4 Hct 41.5 L MCV 97.2 MCH 33.7 H MCHC 34.7 RDW 13.5 Plt Count 102 L MPV 10.4 Immature Gran % (Auto) 0.8 H Neut % (Auto) 69.1 Lymph % (Auto) 20.2 Treasure % (Auto) 8.8 Eos % (Auto) 0.7 Baso % (Auto) 0.4 Lymph # (Auto) 1.5 Treasure # (Auto) 0.7 Eos # (Auto) 0.1 Baso # (Auto) 0.0 Abs Immat Gran (auto) 0.06 H Absolute Neuts (auto) 5.3 Absolute Nucleated RBC 0.000 Nucleated RBC % (auto) 0.0 PT INR APTT PTT (Heparin Protocol) Sodium 139 Potassium 3.9 Chloride 105 Carbon Dioxide 26 Anion Gap 12 BUN 13 Creatinine 1.02 Estim Creat Clear Calc 58.7 Estimated GFR > 60 POC Glucose 124 H Random Glucose 139 H Calcium 8.8 Magnesium 1.8 Total Bilirubin 2.4 H AST 18 ALT 26 Alkaline Phosphatase 86 Total Creatine Kinase 28 L Troponin I High Sens Total Protein 6.0 L Albumin 3.4 L Triglycerides Cholesterol LDL Cholesterol, Calc HDL Cholesterol Urine Color Urine Appearance Urine pH Ur Specific [place] Urine Protein Urine Glucose (UA) Urine Ketones Urine Blood Urine Nitrite Ur Leukocyte Esterase Urine RBC Urine WBC Ur Squamous Epith Cells Urine Bacteria Ethyl Alcohol COVID-19 ([facility]) COVID-19 Clin Com 10/23/21 10/23/21 10/23/21 18:25 18:25 18:25 WBC RBC Hgb Hct MCV MCH MCHC RDW Plt Count MPV Immature Gran % (Auto) Neut % (Auto) Lymph % (Auto) Treasure % (Auto) Eos % (Auto) Baso % (Auto) Lymph # (Auto) [place] # (Auto) Eos # (Auto) Baso # (Auto) Abs Immat Gran (auto) Absolute Neuts (auto) Absolute Nucleated RBC Nucleated RBC % (auto) PT 12.9 INR 1.1 APTT 30.9 PTT (Heparin Protocol) Sodium Potassium Chloride Carbon Dioxide Anion Gap BUN Creatinine Estim Creat Clear Calc Estimated GFR POC Glucose Random Glucose Calcium Magnesium Total Bilirubin AST ALT Alkaline Phosphatase Total Creatine Kinase Troponin I High Sens 24.7 Total Protein Albumin Triglycerides Cholesterol LDL Cholesterol, Calc HDL Cholesterol Urine Color Urine Appearance Urine pH Ur Specific [place] Urine Protein Urine Glucose (UA) Urine Ketones Urine Blood Urine Nitrite Ur Leukocyte Esterase Urine RBC Urine WBC Ur Squamous Epith Cells Urine Bacteria Ethyl Alcohol < 10 COVID-19 ([facility]) COVID-19 Clin Com 10/23/21 10/23/21 10/23/21 19:00 21:31 22:05 WBC RBC Hgb Hct MCV MCH MCHC RDW Plt Count MPV Immature Gran % (Auto) Neut % (Auto) Lymph % (Auto) Treasure % (Auto) Eos % (Auto) Baso % (Auto) Lymph # (Auto) [place] # (Auto) Eos # (Auto) Baso # (Auto) Abs Immat Gran (auto) Absolute Neuts (auto) Absolute Nucleated RBC Nucleated RBC % (auto) PT INR APTT PTT (Heparin Protocol) Sodium Potassium Chloride Carbon Dioxide Anion Gap BUN Creatinine Estim Creat Clear Calc Estimated GFR POC Glucose Random Glucose Calcium Magnesium Total Bilirubin AST ALT Alkaline Phosphatase Total Creatine Kinase Troponin I High Sens 22.9 Total Protein Albumin Triglycerides Cholesterol LDL Cholesterol, Calc HDL Cholesterol Urine Color YELLOW Urine Appearance CLEAR Urine pH 6.5 Ur Specific [place] 1.020 Urine Protein 1+ H Urine Glucose (UA) NEG Urine Ketones 15 Urine Blood NEG Urine Nitrite NEG Ur Leukocyte Esterase NEG Urine RBC 0 Urine WBC 0 Ur Squamous Epith Cells NONE Urine Bacteria TRACE Ethyl Alcohol COVID-19 ([facility]) Negative COVID-19 Clin Com See Note 10/24/21 10/24/21 10/25/21 08:05 21:17 05:38 WBC 8.3 RBC 4.30 L Hgb 14.0 Hct 41.7 L MCV 97.0 MCH 32.6 MCHC 33.6 RDW 13.3 Plt Count 118 L MPV 10.7 Immature Gran % (Auto) Neut % (Auto) Lymph % (Auto) Treasure % (Auto) Eos % (Auto) Baso % (Auto) Lymph # (Auto) [place] # (Auto) Eos # (Auto) Baso # (Auto) Abs Immat Gran (auto) Absolute Neuts (auto) Absolute Nucleated RBC 0.000 Nucleated RBC % (auto) 0.0 PT INR APTT PTT (Heparin Protocol) Sodium Potassium Chloride Carbon Dioxide Anion Gap BUN Creatinine Estim Creat Clear Calc Estimated GFR POC Glucose 114 126 H Random Glucose Calcium Magnesium Total Bilirubin AST ALT Alkaline Phosphatase Total Creatine Kinase Troponin I High Sens Total Protein Albumin Triglycerides Cholesterol LDL Cholesterol, Calc HDL Cholesterol Urine Color Urine Appearance Urine pH Ur Specific [place] Urine Protein Urine Glucose (UA) Urine Ketones Urine Blood Urine Nitrite Ur Leukocyte Esterase Urine RBC Urine WBC Ur Squamous Epith Cells Urine Bacteria Ethyl Alcohol COVID-19 ([facility]) COVID-19 [employer] 10/25/21 10/27/21 10/27/21 05:38 05:27 05:27 WBC RBC Hgb Hct MCV MCH MCHC RDW Plt Count MPV Immature Gran % (Auto) Neut % (Auto) Lymph % (Auto) Treasure % (Auto) Eos % (Auto) Baso % (Auto) Lymph # (Auto) [place] # (Auto) Eos # (Auto) Baso # (Auto) Abs Immat Gran (auto) Absolute Neuts (auto) Absolute Nucleated RBC Nucleated RBC % (auto) PT INR APTT PTT (Heparin Protocol) Sodium 142 143 Potassium 4.1 3.9 Chloride 106 108 Carbon Dioxide 29 28 Anion Gap 11 L 11 L BUN 11 17 H D Creatinine 1.22 1.20 Estim Creat Clear Calc 49.1 49.9 Estimated GFR 57 58 POC Glucose Random Glucose 122 H 124 H Calcium 9.0 8.9 Magnesium 1.8 Total Bilirubin AST ALT Alkaline Phosphatase Total Creatine Kinase Troponin I High Sens Total Protein Albumin Triglycerides Cancelled 158 Cholesterol Cancelled 107 LDL Cholesterol, Calc Cancelled 48 HDL Cholesterol Cancelled 28 Urine Color Urine Appearance Urine pH Ur Specific [place] Urine Protein Urine Glucose (UA) Urine Ketones Urine Blood Urine Nitrite Ur Leukocyte Esterase Urine RBC Urine WBC Ur Squamous Epith Cells Urine Bacteria Ethyl Alcohol COVID-19 ([facility]) COVID-19 [employer] 10/27/21 10/28/21 10/28/21 20:48 04:04 04:04 WBC 8.3 RBC 4.10 L Hgb 13.4 L Hct 39.8 L MCV 97.1 MCH 32.7 MCHC 33.7 RDW 13.3 Plt Count Not Reportable MPV 10.2 Immature Gran % (Auto) Neut % (Auto) Lymph % (Auto) Treasure % (Auto) Eos % (Auto) Baso % (Auto) Lymph # (Auto) [place] # (Auto) Eos # (Auto) Baso # (Auto) Abs Immat Gran (auto) Absolute Neuts (auto) Absolute Nucleated RBC 0.000 Nucleated RBC % (auto) 0.0 PT 12.7 INR 1.1 APTT PTT (Heparin Protocol) 32.8 L Sodium 142 Potassium 3.9 Chloride 110 H Carbon Dioxide 21 L Anion Gap 15 BUN 19 H Creatinine 1.24 Estim Creat Clear Calc 48.3 Estimated GFR 56 POC Glucose Random Glucose 127 H Calcium 8.9 Magnesium Total Bilirubin AST ALT Alkaline Phosphatase Total Creatine Kinase Troponin I High Sens Total Protein Albumin Triglycerides Cholesterol LDL Cholesterol, Calc HDL Cholesterol Urine Color Urine Appearance Urine pH Ur Specific [place] Urine Protein Urine Glucose (UA) Urine Ketones Urine Blood Urine Nitrite Ur Leukocyte Esterase Urine RBC Urine WBC Ur Squamous Epith Cells Urine Bacteria Ethyl Alcohol COVID-19 ([facility]) COVID-19 Clin Com 10/28/21 10/28/21 04:04 10:41 WBC RBC Hgb Hct MCV MCH MCHC RDW Plt Count MPV Immature Gran % (Auto) Neut % (Auto) Lymph % (Auto) [place] % (Auto) Eos % (Auto) Baso % (Auto) Lymph # (Auto) [place] # (Auto) Eos # (Auto) Baso # (Auto) Abs Immat Gran (auto) Absolute Neuts (auto) Absolute Nucleated RBC Nucleated RBC % (auto) PT INR APTT PTT (Heparin Protocol) 93.3 H D 53.0 D Sodium Potassium Chloride Carbon Dioxide Anion Gap BUN Creatinine Estim Creat Clear Calc Estimated GFR POC Glucose Random Glucose Calcium Magnesium Total Bilirubin AST ALT Alkaline Phosphatase Total Creatine Kinase Troponin I High Sens Total Protein Albumin Triglycerides Cholesterol LDL Cholesterol, Calc HDL Cholesterol Urine Color Urine Appearance Urine pH Ur Specific [place] Urine Protein Urine Glucose (UA) Urine Ketones Urine Blood Urine Nitrite Ur Leukocyte Esterase Urine RBC Urine WBC Ur Squamous Epith Cells Urine Bacteria Ethyl Alcohol COVID-19 ([facility]) COVID-19 Clin Com Narrative Narrative: Pacer Interr Event Note Date of Service: 10/27/21 Event Note: Medtronic dual chamber pacemaker interrogation today. Battery 12.7 years, AAI -DDD mode, low rate 60, upper tracking rate 110. Apace 0.7% of time, Vpace 98.6% of time, in persistent/ chronic atrial fibrillation, v threshold 0.5V at 0.4ms, sensitivities normal, no VT, pt activity 1.8 hr/ day. Device is Kelley XT DR HODGES. RA and RV leads are medtronic capsure fix novus MRI surescan. Reviewed with rosa maria [employer] rep. This device and these leads are MRI compatible. He has no known capped leads in place. He may proceed with MRI and will need to have Medtronic Rep present to switch device into safe mode for the procedure. Order form completed by me and faxed to MRI department. Hospitalist notified. ECHO 10/2021 Conclusions: - The left ventricular systolic function is normal.? The ? calculated ejection fraction is 55% by biplane method. ? - A bioprosthetic aortic valve is present.? The prosthetic aortic valve appears to be functioning normally.? - Mean gradient across the mitral valve 3 mm Hg at 62/Min; cannot exclude mild mitral stenosis.? - There is mild dilatation of the ascending aorta measuring 4.20 cm.? ? ? EKG 10/2021 Vent. Rate : 067 BPM ? ? Atrial Rate : 043 BPM ?? P-R Int : 000 ms? QRS Dur : 184 ms ? ? QT Int : 492 ms ? ? ? P-R-T Axes : 000 026 102 degrees ?? QTc Int : 519 ms ? Ventricular-paced rhythm Possible underlying AF Abnormal ECG No previous ECGs available ? CT angio head neck 10/2021 IMPRESSION: CT head: No intracranial hemorrhage or large acute infarction. Chronic lacunar infarcts in the bilateral basal ganglia and left cerebellum. Background changes of chronic microangiopathy and brain parenchymal volume loss. ? 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 No additional high-grade narrowing in the neck arteries. ? CTA head: No proximal vessel occlusion or significant stenosis. ? 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 This could represent an epithelial lesion or avascular lesion. Consider nonemergent ENT follow-up. Assessment and Plan Assessment Anesthesia Assessment: Chart Reviewed Documented by User: Allan Chapman MD 10/29/21 10:56 PMFSH Past Medical History Medical History Diabetes NICM (nonischemic cardiomyopathy) Pacemaker PAF (paroxysmal atrial fibrillation) Family History Family History Mother CAD (coronary artery disease) Family history of problems with anesthesia: No Surgical History Surgical History History of right-sided carotid endarterectomy Hx of CABG Status post transcatheter aortic valve replacement (TAVR) using bioprosthesis History of Problems with Anesthesia: No Social History Social History Household Members: None Housing: House Do you presently have visiting nurse or other home services: No Alcohol intake: unknown Patient Tobacco Use Status: Former Tobacco user Use of substances other than those prescribed or required for medical reasons: No Currently Displaying Signs/Symptoms of Drug Intoxication Withdrawal: No Have you been hit, kicked, punched, or otherwise hurt by someone within the past year? If so, by whom?: No Do you feel safe in your current relationship?: No Is there a partner from a previous relationship who is making you feel unsafe now?: No Are you DNR?: No Advance Directives: No Advance Directives Information Provided: Yes Do you have thoughts of harming others: None Do you have a plan to hurt others: No Plan Recently lost weight without trying: No Nutrition Risks: No Nutritional Risk service: No Current occupational status: retired Meds Allergies Allergy/AdvReac Type Severity Reaction Status Date / Time acetaminophen [From Percocet] Allergy Unknown Verified 10/23/21 17:20 bee pollen [bee stings] Allergy Unknown Verified 10/23/21 17:20 carvedilol Allergy Unknown Verified 10/23/21 17:20 citalopram Allergy Unknown Verified 10/23/21 17:20 colesevelam [From WelChol] Allergy Unknown Verified 10/23/21 17:20 fluoxetine Allergy Unknown Verified 10/23/21 17:20 gabapentin Allergy Unresponsiv Verified 10/23/21 17:20 e lactose Allergy Unknown Verified 10/23/21 17:20 lisinopril Allergy Unknown Verified 10/23/21 17:20 mirtazapine [From Remeron] Allergy Unknown Verified 10/23/21 17:20 oxycodone [From Percocet] Allergy Unknown Verified 10/23/21 17:20 venlafaxine [From Effexor] Allergy Unknown Verified 10/23/21 17:20 Home Medications Medication Instructions Recorded Confirmed Last Taken Type allopurinol 100 mg tablet 200 mg PO DAILY 10/23/21 10/23/21 10/23/21 History amlodipine 5 mg tablet 2.5 mg PO BEDTIME 10/23/21 10/23/21 10/22/21 History apixaban 2.5 mg tablet (Eliquis) 2.5 mg PO BID 10/23/21 10/23/21 10/23/21 History aspirin 81 mg tablet,delayed 81 mg PO DAILY 10/23/21 10/23/21 10/23/21 History release atorvastatin 40 mg tablet 40 mg PO BEDTIME 10/23/21 10/23/21 10/22/21 History cholecalciferol (vitamin D3) 50 50 mcg PO DAILY 10/23/21 10/23/21 10/23/21 History mcg (2,000 unit) tablet lorazepam 1 mg tablet 1 mg PO BEDTIME 10/23/21 10/23/21 10/22/21 History magnesium oxide 400 mg (241.3 mg 400 mg PO DAILY 10/23/21 10/23/21 10/23/21 History magnesium) tablet melatonin 5 mg tablet 5 mg PO BEDTIME PRN 10/23/21 10/23/21 10/22/21 History omeprazole 20 mg capsule,delayed 20 mg PO DAILY 10/23/21 10/23/21 10/23/21 History release tamsulosin 0.4 mg capsule 0.4 mg PO BEDTIME 10/23/21 10/23/21 10/22/21 History thiamine HCl (vitamin B1) 100 mg 100 mg PO DAILY 10/23/21 10/23/21 10/23/21 History tablet Exam Airway Loose/Missing/Broken Teeth: Yes Assessment and Plan Assessment Anesthesia Assessment: Anesthesia Plan Discussed Final Anesthetic Review Family History of Problems with Anesthesia: No History of Problems with Anesthesia: No NPO: Yes ASA Class: IV Final Preanesthetic Review: No Changes in Pt Med Stat, Meds/Allgs Chart Reviewed, Consent Obtained/Reviewed and Anes Risks/Benef Reviewed Patient Risk: High Procedure Risk: Intermediate Anesthetic Plan Anesthetic Plan: GA Disposition: Inp. Admit - ICU
[2021-10-28] MEDS: Heparin Sodium,Porcine/1/2NS 25,000 UNIT/250 ML IV.SOLN 9.9 UNIT IVCONT (11:54)
[2021-10-28] MEDS: ceFAZolin Sodium/Dextrose,Iso 2 GM/50 ML PIGGYBACK IV (12:40)
--- NOTE | 2021-10-28 14:25 | P.PNIM_ITS ---
Subjective Subjective Date of Service: 10/28/21 Interval History: cc: unsteady gait interval history: no complaints Cardiovascular Cardiovascular: Reports no additional cardiovascular complaints Respiratory Respiratory: Reports no additional respiratory complaints Physical Exam Vital Signs: Vital Signs: Last Vital Signs Temp 98.6 F 10/28/21 11:54 Pulse 62 10/28/21 11:54 Resp 16 10/28/21 11:54 BP 175/83 H 10/28/21 11:54 Pulse Ox 95 10/28/21 11:54 BMI result Body Mass Index 30.2 Const Other:?Constitutional : Alert, oriented, not in distress Neck : Normal inspection, Supple Cardiovascular : RRR, S1 S2, no lower extremity edema Respiratory : Good bilateral air entry,? no crackles, wheezes or rhonchi Gastrointestinal:? soft, lax, Normal bowel sounds, Non tender Skin : Warm, Dry Neurological : Alert & oriented x3, No focal deficit, normal cranial nerve exam, within normal cerebellar examination, Objective Data Active Medications Acetaminophen (Acetaminophen 325 Mg Tablet) 650 mg PO Q6H PRN PRN Reason: Pain, Mild (Pain Scale 1-3) Allopurinol (Allopurinol 100 Mg Tablet) 200 mg PO DAILY [facility] Last Admin: 10/28/21 09:28 Dose: 200 mg Documented by: KOKI Amlodipine Besylate (Amlodipine Besylate 2.5 Mg Tablet) 2.5 mg PO BEDTIME [facility]; Protocol Last Admin: 10/27/21 21:14 Dose: 2.5 mg Documented by: MARGARITO Aspirin (Aspirin Enteric Coated 81 Mg Tablet.) 81 mg PO DAILY [facility] Last Admin: 10/28/21 09:28 Dose: 81 mg Documented by: KOKI Atorvastatin Calcium (Atorvastatin Calcium 40 Mg Tablet) 40 mg PO BEDTIME [facility] Last Admin: 10/27/21 21:20 Dose: 40 mg Documented by: MARGARITO Heparin Sodium (Porcine) (Heparin Sodium,Porcine 5,000 Unit/Ml Vial) 3,600 unit 40 unit/kg (3600 unit) IVPUSH PROTOCOL BOLUS PRN; Protocol PRN Reason: 40 unit/kg - Heparin Protocol Heparin Sodium (Porcine) (Heparin Sodium,Porcine 5,000 Unit/Ml Vial) 7,200 unit 80 unit/kg (7200 unit) IVPUSH PROTOCOL BOLUS PRN; Protocol PRN Reason: 80 unit/kg - Heparin Protocol Heparin Sodium/Sodium Chloride () 25,000 unit in 250 mls @ 0 mls/hr IVCONT .Q0M [facility]; Protocol Stop: 10/29/21 00:05 Last Admin: 10/28/21 11:54 Dose: 11 units/kg/hr, 9.9 mls/hr Documented by: KOKI Cosigned by: ANGELICA Lorazepam (Lorazepam 1 Mg Tablet) 1 mg PO BEDTIME [facility] Last Admin: 10/27/21 21:15 Dose: 1 mg Documented by: MARGARITO Magnesium Oxide (Magnesium Oxide 400 Mg Tablet) 400 mg PO BEDTIME [facility] Last Admin: 10/27/21 21:15 Dose: 400 mg Documented by: MARGARITO Omeprazole (Omeprazole 20 Mg Capsule.Dr) 20 mg PO DAILY@0900 [facility] Last Admin: 10/28/21 09:28 Dose: 20 mg Documented by: KOKI Ondansetron HCl (Ondansetron Hcl 4 Mg/2 Ml Vial) 4 mg IVPUSH Q8H PRN PRN Reason: Nausea and Vomiting Pharmacy Consult (Consult Rx Perform Med Rec) 1 each MISCELLANE ONCE PRN PRN Reason: Consult order Pharmacy Consult (Consult Rx Perform Med Rec) 1 each MISCELLANE ONCE PRN PRN Reason: Consult order Sodium Chloride (0.9 % Sodium Chloride Flush 3 Ml Syringe) 3 ml IVFLUSH QSHIFT [facility] Last Admin: 10/28/21 09:27 Dose: 3 ml Documented by: KOKI Tamsulosin HCl (Tamsulosin Hcl 0.4 Mg Capsule) 0.4 mg PO BEDTIME [facility] Last Admin: 10/27/21 21:15 Dose: 0.4 mg Documented by: MARGARITO Thiamine HCl (Thiamine Hcl 100 Mg Tablet) 100 mg PO DAILY [facility] Last Admin: 10/28/21 09:28 Dose: 100 mg Documented by: KOKI Vitamin D (Cholecalciferol (Vitamin D3) 25 Mcg Tablet) 50 mcg PO DAILY [facility] Last Admin: 10/28/21 09:28 Dose: 50 mcg Documented by: KOKI Labs CBC & Chem 7: 10/28/21 04:04 10/28/21 04:04 Labs: Laboratory Results - last 24 hr 10/27/21 10/28/21 10/28/21 20:48 04:04 04:04 MCV 97.1 MCH 32.7 MCHC 33.7 RDW 13.3 Plt Count Not Reportable MPV 10.2 Absolute Nucleated RBC 0.000 Nucleated RBC % (auto) 0.0 PT 12.7 INR 1.1 PTT (Heparin Protocol) 32.8 L Anion Gap 15 Estim Creat Clear Calc 48.3 Estimated GFR 56 Random Glucose 127 H Calcium 8.9 Blood Type Antibody Screen 10/28/21 10/28/21 10/28/21 04:04 10:41 11:51 MCV MCH MCHC RDW Plt Count MPV Absolute Nucleated RBC Nucleated RBC % (auto) PT INR PTT (Heparin Protocol) 93.3 H D 53.0 D Anion Gap Estim Creat Clear Calc Estimated GFR Random Glucose Calcium Blood Type A Positive Antibody Screen NEGATIVE Assessment and Plan (1) PAF (paroxysmal atrial fibrillation): Status: Acute (2) Abnormal gait: Status: Acute (3) Unsteadiness on feet: Status: Acute Assessment and Plan: An 86 years old male with PMH of carotid stenosis, atrial fibrillation post ppm, BPH among others who presented to the hospital complaining of new onset dizziness and unsteadiness for 1 day prior to admission. Abnormal gait small acute to subacute anterior right frontal white matter infactts and posterior periventricular white matter Continue home medications of aspirin statin, heparin Neurology input appreciated PT OT Left carotid stenosis Per CTA Severe stenosis of the proximal left internal carotid artery estimated as greater than 90% with only threadlike flow across a short segment. Vascular surgeon input appreciated, planned surgery tomorrow chronic Atrial fibrillation On pacemaker continue heparin (on eliquis at home) DVT PPX heparin Quality Stroke Does the patient have a stroke diagnosis?: No VTE Prior VTE?: No VTE Risk Level:: Medical - moderate - high VTE Device Contraindication: Treatment Not Indicated VTE Drug Contraindication: N/A - Med Ordered
--- NOTE | 2021-10-28 15:42 | MHC.CM.PN ---
EMR REVIEWED, MRI COMPLETE, PER VASCULAR SURGEON PT HAS BEEN CLEARED BY CARDIOLOGY AND PT IS SCHEDULED FOR LEFT CARTID ENDARTERECTOMY TOMORROW 10/29/21 AT 0730, CM HAS REPLACED REFERRALS FOR SR, NO PREFERENCE PER DISCUSSION YESTERDAY W/DTR/HCP DERECK. CM WILL CONT TO FOLLOW D/C NEEDS.
--- NOTE | 2021-10-28 18:23 | PC.NURSE ---
Addendum entered by Sasha Sanford RN 10/28/21 19:02: PTT at 1800 was 80.2. Heparin drip decreased by 2units/kg/hr, now at 9units/kg/hr running at 8.1ml/hr. notified of PTT results via Reppify. Heparin to be stopped at midnight. No PTT draw needed per Original Note: Pt alert and oriented x4. denies pain or discomfort. pt continues on heparin running at 11ml/kg/hr. PTT level therapeutic at 53. Rate not changed from this am. Pt will stop heparin drip at PR for vascular procedure tomorrow
[2021-10-28 18:34] LABS: PTT Heparin Drip 80.2 SEC (53-77.9)
[2021-10-28] MEDS: Atorvastatin Calcium 40 MG TABLET PO (20:31)
[2021-10-28] MEDS: amLODIPine Besylate 2.5 MG TABLET PO (20:31)
[2021-10-28] MEDS: Magnesium Oxide 400 MG TABLET PO (20:32)
[2021-10-28] MEDS: Tamsulosin HCL 0.4 MG CAPSULE PO (20:32)
[2021-10-28] MEDS: LORazepam 1 MG TABLET PO (20:32)
[2021-10-29] VITALS (24 sets, daily range): BP systolic 103–169; BP diastolic 45–82; PULSE 58–75; RESP 12–20; TEMP 36–36.7; O2SAT 91–100
--- NOTE | 2021-10-29 04:49 | PC.NURSE ---
Documentation of Heparin Drip was duplicated within the MAR causing issues with future documentation concerning titration. See previous architectural draftsman on Heparin; [id number]
[2021-10-29 05:42] LABS: PLT CLUMP 1
[2021-10-29 05:44] LABS: Hemoglobin 13.9 g/dl (14.0-18.0); Mean Corpuscular HGB Conc 33.9 g/dl (31.0-36.0); Mean Corpuscular Hemoglobin 32.3 pg (27.0-33.0); Mean Corpuscular Volume 95.3 fL (80.0-98.0); Red Cell Distribution Width 13.3 % (11.0-16.0)
[2021-10-29 06:11] LABS: Anion Gap 13 (12-20); Blood Urea Nitrogen 16 mg/dL (9-16); Calcium 8.9 mg/dL (8.4-10.2); Carbon Dioxide 24 mmol/L (22-29); Chloride 108 mmol/L (96-108); Creatinine Clr Calc Pharmacy 51.6; Estimated Glomerular Filt Rate 60; Glucose Fasting 118 mg/dL (60-99); Potassium 3.7 mmol/L (3.3-5.1); Sodium 141 mmol/L (135-145)
[2021-10-29] MEDS: Lactated Ringers 1,000 ML 50 ML IVCONT (06:38)
[2021-10-29 06:40] LABS: White Blood Count 6.2 X10*3/uL (4.8-10.8)
--- NOTE | 2021-10-29 07:38 | PC.NURSE ---
MD ESPANA AWARE THAT PREOP MED WAS GIVEN YESTERDAY. NURSE ANESTHESIA TO GIVE IN OR.
--- NOTE | 2021-10-29 09:15 | MHC.CM.PN ---
CM RECEIVED MESSAGES FROM [facility] AND [facility] WHO ARE BOTH OFFERING A BED TO PT, [facility] DOES NOT HAVE A BED HOWEVER WILLING TO PLACE PT [facility] AN[facility].
--- NOTE | 2021-10-29 10:35 | P.OP_ITS ---
Operative Note Operative Note Date of Service: 10/29/21 Narrative: Operative note by [facility] Preoperative diagnosis:Left carotid stenosis Postoperative diagnosis: same Procedure: left carotid endarterectomy Surgeon:Juan Zepeda M.D. Associate Professor Of Theology: Dr. Claudio Anesthesia: general Specimens: 1 Drains: 1 Estimated blood loss: 150 mL Indications: complex 86-year-old gentleman who presented to the hospital with abnormal gait and unsteadiness on his feet. He was subsequently worked up and noted to have a high-grade left carotid stenosis. This appears to be unrelated to the unsteadiness, but it was high-grade string sign carotid stenosis. The patient has signed the informed consent after reviewing risks, complications, benefits, and alternatives previously discussed with the patient. The patient was given the opportunity to ask any additional questions or voice any concerns. All questions were answered to the patient's satisfaction. Procedure in detail: Patient was brought to the operating room prior to which a time-out was called for patient identification and site verification. Left neck was prepped and draped in standard surgical fashion. Incision was carried out over the anterior border of the sternocleidomastoid curving up under the mandible. This was approximately 1 finger breath below the mandible. We then brought to the incision through the skin subcu fascia through the platysma on to the anterior border of the Sternocleidomastoid. We were able to easily identify the facial branch of the internal jugular vein. There was ligated with 2-0 silk ties. We subsequently turned our attention to the carotid sheath. We were able to dissect out the common carotid. This was isolated with a rim L tourniquet. We then had to dissect up to the [place] bifurcation and isolated out the internal and external carotid. This was somewhat of a high bifurcation. We were able to isolate this out and bring the carotid down. Once this was accomplished 5000 units of systemic heparin was administered. After 5 minutes of circulation time the carotids were clamped internal common and external in that order. Once this was done we then created an arteriotomy from the common carotid to the internal carotid. 8 [place] shunt was then placed. Once flow was established we then performed endarterectomy. All loose debris was removed. The into most flushed clear. Once this was all done we then sutured on a XenoSure patch with a 6 0 Prolene in a circumferential manner. Prior to closure sheath was removed. Vessels were flushed clear. Adequate hemostasis was achieved after closure. Several interrupted 7 0 Prolene sutures were placed. Once adequate hemostasis was achieved deep layer was reapproximated using 2 0 poly Sorb in an interrupted fashion superficial layer with 3-0 Polysorb in an interrupted fashion and finally skin with a running subcuticular 4-0 Monocryl. At the end of the case sponge as right counts were correct. Patient tolerated the procedure well. Returned to recovery with stable vitals And neurologically intact. This note is constructed using voice recognition software. While every effort has been made to ensure accuracy, control systems specialist errors may have been included. Thank you for allowing me to participate in the care of your patient. Yours sincerely, Juan Zepeda MD, FACS, R.P.V.I.
--- NOTE | 2021-10-29 12:54 | MHC.CM.PN ---
CM RECEIVED CALL FROM PT'S DTR/HCP DERECK HRADEN REQUESTING CALL FROM SURGEON FOR UPDATE PT HAVING SURGERY TODAY, DERECK ALSO REPORTED SHE WOULD PREFER [facility] HER FIRST CHOICE AND CM WILL FOLLOW-UP W/BETY TO SEE [facility] THEY WOULD OFFER A BED AT. DERECK VERIFIED PT'S COVID VACCINE PFIZER IN FEBRUARY AND MARCH. CM WILL LET [facility] THEY ARE FIRST CHOICE AND CONT TO FOLLOW D/C NEEDS.
[2021-10-29] MEDS: 0.9 % Sodium Chloride 1,000 ML 80 ML IVCONT (14:25)
[2021-10-29] MEDS: ceFAZolin Sodium/Dextrose,Iso 2 GM/50 ML PIGGYBACK IV (14:59)
--- NOTE | 2021-10-29 18:47 | PM.CCPN ---
Subjective Subjective Date of Service: 10/29/21 Interval History: Mr. Whitten was and transferred to the ICU this afternoon following a left carotid endarterectomy in the operating room this morning by Dr. Zepeda. The patient is an 86-year-old male with past medical history diabetes, atrial fibrillation status post permanent pacemaker, CABG with aortic valve replacement in 2002; status post TAVR a couple years ago; status post right carotid endarterectomy at [facility].? He takes Eliquis.? He lives alone. Patient was brought to the hospital on October 24 complaining on unsteadiness x1 day.? CT showed an old left cerebellar and large lacunar strokes in both basal ganglia.? CTA showed 90% stenosis of the left ICA. The patient was seen by Dr. Zepeda and scheduled for semi urgent carotid endarterectomy.? The patient was seen by Cardiology.? Echo showed normal LV systolic function; ejection fraction 55%; severe LVH; normal RV cavity size with reduced function; a well-functioning bioprosthetic aortic valve.? Mitral stenosis could not be excluded.? IVC was normal in size.? The pulmonary artery systolic pressure estimate was normal. Brain MRI yesterday showed a few small acute to subacute appearing infarcts within the anterior right frontal white matter and the posterior right periventricular white matter, with a few punctate acute to subacute infarcts within the high right middle frontal gyrus as well.? Thought to be embolic phenomenon.?? There were also chronic infarcts within the left cerebellum and the basal ganglia bilaterally. The patient underwent left carotid endarterectomy this morning under general endotracheal anesthesia.? Surgery and anesthesia were uncomplicated.? The patient was extubated at the end of surgery and recovered in the PACU.? I saw him in the PACU and he was fully awake breathing easy with sat in the high 90s on 2 L oxygen by nasal cannula.? Neuro status appeared completely intact with the exception that he had a very subtle trivial right facial droop, albeit with a fully symmetrical smile, and had a very minimal leftward deviation of his tongue on protrusion.? I don?t whether know whether those are new or old. In the ICU, the patient is fully awake and appropriate.? Breathing easy with sat 98% on room air.? Heart rate is 64-70 in a fully paced rhythm.? Unclear what his underlying rhythm is.? Blood pressure is about 140/60.? Neuro exam completely intact, as above.? Left neck wound is just about completely dry. LABORATORY DATA from this morning: ?Below. IMPRESSION: 1. Multiple prior cerebral infarcts, as described above.? Likely both embolic and non and volatile phenomenon. 2. Severe left carotid stenosis.? Status post endarterectomy today by Dr. Zepeda.? Doing very well postoperatively.? Admit to ICU for overnight hemodynamic, respiratory, and wound monitoring.? Follow-up per Dr. Zepeda.? Plan to restart anticoagulation james, possibly tomorrow. Time:? [id number] Critical Care Time (minutes): 0 Physical Exam Vital Signs: Vital Signs: Last Vital Signs Temp 96.8 F 10/29/21 16:06 Pulse 60 10/29/21 18:00 Resp 14 10/29/21 18:00 BP 123/53 L 10/29/21 18:00 Pulse Ox 91 L 10/29/21 18:00 BMI result Body Mass Index 30.2 Objective Data Labs CBC & Chem 7: 10/29/21 04:51 10/29/21 04:51 Labs: Laboratory Results - last 24 hr 10/29/21 10/29/21 04:51 04:51 WBC 6.2 RBC 4.30 L Hgb 13.9 L Hct 41.0 L MCV 95.3 MCH 32.3 MCHC 33.9 RDW 13.3 Plt Count Not Reportable MPV Not Reportable Absolute Nucleated RBC 0.000 Nucleated RBC % (auto) 0.0 Sodium 141 Potassium 3.7 Chloride 108 Carbon Dioxide 24 Anion Gap 13 BUN 16 Creatinine 1.16 Estim Creat Clear Calc 51.6 Estimated GFR 60 Fasting Glucose 118 H Calcium 8.9 Quality Stroke Does the patient have a stroke diagnosis?: No VTE Prior VTE?: No VTE Risk Level:: Medical - moderate - high VTE Device Contraindication: Treatment Not Indicated VTE Drug Contraindication: N/A - Med Ordered
[2021-10-29] MEDS: Atorvastatin Calcium 40 MG TABLET PO (21:08)
[2021-10-29] MEDS: amLODIPine Besylate 2.5 MG TABLET PO (21:08)
[2021-10-29] MEDS: Magnesium Oxide 400 MG TABLET PO (21:09)
[2021-10-29] MEDS: 0.9 % Sodium Chloride Flush 3 ML SYRINGE IVFLUSH (21:10)
[2021-10-29] MEDS: Tamsulosin HCL 0.4 MG CAPSULE PO (21:13)
[2021-10-29] MEDS: LORazepam 1 MG TABLET PO (22:24)
[2021-10-30] VITALS (13 sets, daily range): BP systolic 102–148; BP diastolic 47–74; PULSE 50–80; RESP 12–22; TEMP 36.1–36.4; O2SAT 90–100
[2021-10-30] MEDS: 0.9 % Sodium Chloride 1,000 ML 80 ML IVCONT (04:57)
[2021-10-30 05:57] LABS: MANUAL DIFF FLAG NO
[2021-10-30 06:16] LABS: Basophils Percent Auto 0.1 % (0-2); Eosinophils Percent Auto 0.1 % (0-4); Hematocrit 37.3 % (42.0-52.0); Hemoglobin 12.6 g/dl (14.0-18.0); Imm Gran Abs Auto 0.04 X10*3/uL (0.00-0.03); Imm Gran Pct Auto 0.4 % (0.0-0.4); Lymphocytes Absolute Auto 0.8 X10*3/uL (1.2-4.9); Mean Corpuscular HGB Conc 33.8 g/dl (31.0-36.0); Mean Corpuscular Hemoglobin 32.3 pg (27.0-33.0); Mean Corpuscular Volume 95.6 fL (80.0-98.0); Monocytes Absolute Auto 0.6 X10*3/uL (0.1-1.2); Neutrophils Absolute Auto 8.1 x10*3/uL (2.0-8.3); Neutrophils Percent Auto 85.4 % (45-73); Red Cell Distribution Width 13.2 % (11.0-16.0); White Blood Count 9.4 X10*3/uL (4.8-10.8)
[2021-10-30 07:24] LABS: Glucose, Whole Blood 118 mg/dL (60-115)
--- NOTE | 2021-10-30 08:34 | P.PNCC_ITS ---
Subjective Subjective Date of Service: 10/30/21 Interval History: Mr. Whitten was transferred to the ICU yesterday following a left carotid endarterectomy in the operating room this morning by Dr. Zepeda. The patient is an 86-year-old male with past medical history diabetes, atrial fibrillation status post permanent pacemaker, CABG with aortic valve replacement in 2002; status post TAVR a couple years ago; status post right carotid endarterectomy at [facility].? He takes Eliquis.? He lives alone. The patient underwent left carotid endarterectomy yesterday morning under general endotracheal anesthesia.? Surgery and anesthesia were uncomplicated.? The patient was extubated at the end of surgery and recovered in the PACU.? Did very well overnite in the ICU. This morning, he?s fully awake and appropriate.? Breathing easy with sat 96% on room air.? (Sat had dropped down to 90% on room air when he was sleeping, moments before I woke him up.) Heart rate is 60, in a fully paced rhythm.? Looks like afib underneath.? Blood pressure is 121/52.? No JVD. Chest is CTA, w normal exp phase. No edema. Neuro exam grossly intact.? Left neck wound dressing is just about completely dry. LABORATORY DATA:? Below. IMPRESSION: 1. Multiple prior cerebral infarcts.? Likely both embolic and nonembolic phenomenon. 2. Severe left carotid stenosis.? Status post endarterectomy by Dr. Zepeda.? Doing very well postoperatively.Transfer to floor.? Time: 01055 Critical Care Time (minutes): 0 Physical Exam Vital Signs: Vital Signs: Last Vital Signs Temp 97.5 F 10/30/21 08:00 Pulse 50 10/30/21 08:00 Resp 13 10/30/21 08:00 BP 128/54 L 10/30/21 08:00 Pulse Ox 90 L 10/30/21 08:00 BMI result Body Mass Index 30.2 Objective Data Labs CBC & Chem 7: 10/30/21 05:25 10/29/21 04:51 Labs: Laboratory Results - last 24 hr 10/30/21 10/30/21 05:25 07:21 WBC 9.4 RBC 3.90 L Hgb 12.6 L Hct 37.3 L MCV 95.6 MCH 32.3 MCHC 33.8 RDW 13.2 Plt Count TNP MPV TNP Immature Gran % (Auto) 0.4 Neut % (Auto) 85.4 H Lymph % (Auto) 8.0 L [place] % (Auto) 6.0 Eos % (Auto) 0.1 Baso % (Auto) 0.1 Lymph # (Auto) 0.8 L [place] # (Auto) 0.6 Eos # (Auto) 0.0 Baso # (Auto) 0.0 Abs Immat Gran (auto) 0.04 H Absolute Neuts (auto) 8.1 Absolute Nucleated RBC 0.000 Nucleated RBC % (auto) 0.0 POC Glucose 118 H Quality Stroke Does the patient have a stroke diagnosis?: No VTE Prior VTE?: No VTE Risk Level:: Medical - moderate - high VTE Device Contraindication: Treatment Not Indicated VTE Drug Contraindication: N/A - Med Ordered
[2021-10-30] MEDS: Cholecalciferol (Vitamin D3) 25 MCG TABLET 50 MCG PO (08:37)
[2021-10-30] MEDS: Thiamine HCL 100 MG TABLET PO (08:38)
[2021-10-30] MEDS: Omeprazole 20 MG CAPSULE.DR PO (08:38)
[2021-10-30] MEDS: Aspirin Enteric Coated 81 MG TABLET.DR PO (08:38)
[2021-10-30] MEDS: allopurinoL 100 MG TABLET 200 MG PO (08:38)
[2021-10-30] MEDS: 0.9 % Sodium Chloride Flush 3 ML SYRINGE IVFLUSH ×4 (08:38→21:48)
--- NOTE | 2021-10-30 09:11 | PM.DS ---
DS: Providers Provider Date of Service: 10/30/21 Date of admission: 10/26/21 12:35 Primary care physician: Michael Zafar MD Consults: 10/24/21 11:10 Consult to Neurology Routine Consulting Provider: [facility] Reason for consultation: Dizziness, unsteady gait for eval and rec. 10/24/21 14:16 Consult to Vascular Surgery Routine Consulting Provider: Juan Zepeda Reason for consultation: Left guarded stenosis 10/26/21 11:45 Consult to Cardiology Routine Consulting Provider: Obi Frost Reason for consultation: PRe Op eval for Lt endarterectomy DS: Diagnosis Discharge Diagnosis (1) PAF (paroxysmal atrial fibrillation): Status: Acute (2) Abnormal gait: Status: Acute (3) Unsteadiness on feet: Status: Acute DS: Summary Hospital Course Hospital Course: patient was brought in with some confusion and unsteady gait. He was worked ip and found to have kim grade carotid stenosis. Underwent left carotid endarterectomy. Was stable. Subsequently discharged Time Spent with Patient Time attestation: Total time spent providing and/or coordinating discharge services: Discharge coordination time: Greater than 30 minutes Quality: Stroke Does the patient have a stroke diagnosis?: No Physical Exam Vital Signs: Vital Signs: Last Vital Signs Temp 97.5 F 10/30/21 08:00 Pulse 50 10/30/21 08:00 Resp 13 10/30/21 08:00 BP 128/54 L 10/30/21 08:00 Pulse Ox 90 L 10/30/21 08:00 BMI result Body Mass Index 30.2 DS: Data Data Completed and Pending Pending studies at discharge: Pending at discharge 10/29/21 09:44 Surgical [PTH] Routine Labs on day of discharge: Laboratory Results - last 24 hr 10/30/21 10/30/21 05:25 07:21 WBC 9.4 RBC 3.90 L Hgb 12.6 L Hct 37.3 L MCV 95.6 MCH 32.3 MCHC 33.8 RDW 13.2 Plt Count TNP MPV TNP Immature Gran % (Auto) 0.4 Neut % (Auto) 85.4 H Lymph % (Auto) 8.0 L [place] % (Auto) 6.0 Eos % (Auto) 0.1 Baso % (Auto) 0.1 Lymph # (Auto) 0.8 L [place] # (Auto) 0.6 Eos # (Auto) 0.0 Baso # (Auto) 0.0 Abs Immat Gran (auto) 0.04 H Absolute Neuts (auto) 8.1 Absolute Nucleated RBC 0.000 Nucleated RBC % (auto) 0.0 POC Glucose 118 H Discharge Plan Discharge Patient Disposition: Home, Self-Care Discharge Diagnosis: s/p CEA Referrals: Michael Zafar MD [Primary Care Provider] - 1 Week Discharge Medications: Continued atorvastatin 40 mg tablet 40 mg PO BEDTIME RF: 0 thiamine HCl (vitamin B1) 100 mg tablet 100 mg PO DAILY RF: 0 amlodipine 5 mg tablet 2.5 mg PO BEDTIME RF: 0 allopurinol 100 mg tablet 200 mg PO DAILY RF: 0 magnesium oxide 400 mg (241.3 mg magnesium) tablet 400 mg PO DAILY RF: 0 tamsulosin 0.4 mg capsule 0.4 mg PO BEDTIME RF: 0 omeprazole 20 mg capsule,delayed release(DR/EC) 20 mg PO DAILY RF: 0 lorazepam 1 mg tablet 1 mg PO BEDTIME RF: 0 Eliquis 2.5 mg tablet 2.5 mg PO BID RF: 0 aspirin 81 mg Tablet,Delayed Release (Dr/Ec) 81 mg PO DAILY RF: 0 melatonin 5 mg Tablet 5 mg PO BEDTIME PRN (Reason: Insomnia) RF: 0 cholecalciferol (vitamin D3) 50 mcg (2,000 unit) Tablet 50 mcg PO DAILY RF: 0 Discharge Orders: Discharge Order (Routine); Ordered 10/30/21 Ordered By: Juan Zepeda Diet: advance to usual diet Activity on Discharge: As tolerated Stand Alone Forms: Patient Portal Discharge page Activity Restrictions/Additional Instructions: You may shower as early as tomorrow. Take it easy today and you may ambulate around the house. Within 24 hours you can resume normal activity You may climb a flight of stairs as tolerated Do not lift anything heavier than a gallon of milk for [address] Zepeda in follow-up in approximately 2 weeks time. You should already have an appointment if not please call my office at [phone] Please see above for any change in medications - Advil for pain If you notice excessive bleeding please immediately call my office or return to the emergency room. Care Plan Goals: post op Health Concerns: carotid stenosis Plan of Treatment: surveilence follow up Assessment: s/p carotid surgery
--- NOTE | 2021-10-30 09:33 | MHC.CM.PN ---
Addendum entered by Aishwarya Salvador 10/30/21 12:28: Pt's dtr and significant other have called ICU numerous times verbalizing concern with pt returning to home with services. They cite post surgical urinary retention: pt is presently voiding small amounts in urinal - fixated on voiding as he has a hx of urinary catheterization following surgery. Pt not able to make a decisions re: STR: I want to go home then pt states, my daughter and Arleth ([place]) said I need to go to rehab until I can pee and take care of myself Met with pt at length to discuss: Pt has been accepted by [facility] for skilled RN visits. Pt's d/c ultimately cancelled by surgeon: pt will transfer to med surg until he can either demonstrate consistent urinary function or requires marquez reinsertion as deemed necessary by MD. Pt rereferred to [facility] and [facility] as they had clinically accepted him earlier today. D/C plan is for a d/c on 10/31 if accepted by [facility] facilities. Call placed to pt's dtr Nubia to inform her of plan. Pt aware of plan and in this moment, is in agreement. CM to follow. Addendum entered by Aishwarya Salvador 10/30/21 09:49: Pt has been accepted by [facility] in [address] and dc summary to be faxed for service initiation. Original Note: Pt medically cleared to d/c: has been accepted to [facility] and [facility]. Met with pt to discuss choices: pt states he will not go to STR and will return to home. Pt states he has MOW, support from his significant other, Arleth who lives two houses away, and from his dtr who lives in [place] but will drive up to bring pt home and ensure his immediate needs are met. Pt somewhat receptive to VNA services: will initiate a broad referral for skilled RN visits. Pt states he has a Life Alert pendant and is still able to drive. Pt able to ambulate >100 ft in [place] with no assistance. CM to follow for any changes in plan
--- NOTE | 2021-10-30 09:55 | PC.NURSE ---
Patient A&Ox3. Occasionally forgetful. CHALKYITSIK. Assessment and vitals WNL. at bedside. Lagrange and Fermin removed per MD. This RN ambulated patient in hallway, patient tolerated it well. Walker used temporarily then patient ambulating steady on his own without difficulty. Out of bed to recliner. Eating well. plan to discharge home. This RN spoke to patient's primary contact and SO Arleth ([phone]) to review discharge instructions and plan for patient to return home. Arleth stated she would only be able to provide a ride and would be unable to care for the patient. Arleth expressed concern for taking responsibility for the patients and stated she would feel more comfortable if I spoke with the Patient's daughter Shamika ([phone]) (question health care proxy). This RN spoke to Shamika in which she stated she was they patient's daughter and health care proxy. This RN informed hSamika of Arleth's concern. Shamika stated she would be willing to drive from [place] where she lives and could pear picker the patient and get him settled. Tentative arrival around 1400. Patient updated with plan of care by this RN. This RN reached out to case management and spoke to Aishwarya with concern for safe discharge for patient. Per case management notes, referral was made for STR. Patient states he is unwilling to go to rehab. Aishwarya from case management arranged for home with DAVIANA: [facility] accepted patient. Shamika updated with plan of care.
[2021-10-30] MEDS: Apixaban 2.5 MG TABLET PO ×2 (10:27→21:48)
--- NOTE | 2021-10-30 13:14 | HO.POSTANES ---
Post Anesthesia Evaluation Post Anesthesia Evaluation Vital Signs: Vital Signs Temp Pulse Resp BP Pulse Ox 10/30/21 10:56 100 10/30/21 09:00 59 15 132/53 L 93 10/30/21 08:00 97.5 F 50 13 128/54 L 90 L 10/30/21 07:00 60 14 116/48 L 92 10/30/21 06:00 60 22 H 118/50 L 92 10/30/21 05:00 58 14 135/59 L 94 10/30/21 04:00 60 14 112/51 L 92 10/30/21 03:00 60 14 102/47 L 91 L 10/30/21 02:00 60 13 129/54 L 94 Anesthesia: General Endotracheal-GETA Mental Status: Awake Pain Control: Satisfactory Nausea/Vomiting: None Hydration: Adequate Anesthesia-Related Issues: No Anes. Related Issues
[2021-10-30] MEDS: amLODIPine Besylate 2.5 MG TABLET PO (21:47)
[2021-10-30] MEDS: Magnesium Oxide 400 MG TABLET PO (21:48)
[2021-10-30] MEDS: Tamsulosin HCL 0.4 MG CAPSULE PO (21:48)
[2021-10-30] MEDS: oxyCODONE HCl Immed Release 5 MG TABLET PO (21:48)
[2021-10-30] MEDS: Atorvastatin Calcium 40 MG TABLET PO (21:48)
[2021-10-30] MEDS: LORazepam 1 MG TABLET PO (22:32)
[2021-10-31] VITALS (7 sets, daily range): BP systolic 124–146; BP diastolic 61–76; PULSE 66–86; RESP 18–20; TEMP 36.3–37.6; O2SAT 95–99
[2021-10-31] MEDS: oxyCODONE HCl Immed Release 5 MG TABLET PO ×2 (05:50→21:37)
[2021-10-31] MEDS: 0.9 % Sodium Chloride Flush 3 ML SYRINGE IVFLUSH ×3 (05:51→21:39)
[2021-10-31] MEDS: allopurinoL 100 MG TABLET 200 MG PO (08:32)
[2021-10-31] MEDS: Apixaban 2.5 MG TABLET PO ×2 (08:32→21:38)
[2021-10-31] MEDS: Omeprazole 20 MG CAPSULE.DR PO (08:32)
[2021-10-31] MEDS: Aspirin Enteric Coated 81 MG TABLET.DR PO (08:32)
[2021-10-31] MEDS: Thiamine HCL 100 MG TABLET PO (08:32)
[2021-10-31] MEDS: Cholecalciferol (Vitamin D3) 25 MCG TABLET 50 MCG PO (08:32)
--- NOTE | 2021-10-31 13:03 | P.DS_ITS ---
DS: Providers Provider Date of Service: 11/01/21 Date of admission: 10/26/21 12:35 Primary care physician: Michael Zafar MD Consults: 10/24/21 11:10 Consult to Neurology Routine Consulting Provider: [facility] Reason for consultation: Dizziness, unsteady gait for eval and rec. 10/24/21 14:16 Consult to Vascular Surgery Routine Consulting Provider: Juan Zepeda Reason for consultation: Left guarded stenosis 10/26/21 11:45 Consult to Cardiology Routine Consulting Provider: Obi Frost Reason for consultation: PRe Op eval for Lt endarterectomy DS: Diagnosis Discharge Diagnosis (1) PAF (paroxysmal atrial fibrillation): Status: Acute (2) Abnormal gait: Status: Acute (3) Unsteadiness on feet: Status: Acute DS: Summary Hospital Course Hospital Course: patient was brought in with some confusion and unsteady gait. He was worked up and found to have high grade carotid stenosis. mri showed: a few small acute to subacute appearing infarcts within the anterior right frontal white matter on image 25 of series 4 in the posterior right periventricular white matter on image 21 of series 4. There may be a few punctate acute to subacute infarcts within the high right middle frontal gyrus as well. No mass effect and no hemorrhagic transformation patient Underwent left carotid endarterectomy. Was stable. Subsequently discharged home with vns. Time Spent with Patient Time attestation: Total time spent providing and/or coordinating discharge services: Discharge coordination time: Greater than 30 minutes Quality: Stroke Does the patient have a stroke diagnosis?: No Physical Exam Vital Signs: Vital Signs: Last Vital Signs Temp 99.7 F 10/31/21 11:53 Pulse 70 10/31/21 11:53 Resp 18 10/31/21 11:53 BP 146/70 H 10/31/21 11:53 Pulse Ox 96 10/31/21 11:53 BMI result Body Mass Index 30.2 General: AO X 3, no acute distress Resp: CTA bilateral, no accessory muscles used CVS: S1,S2,RRR GI: soft, non tender, non distended Neuro: motor grossly intact, alert Psych: appropriate affect, appropriate insight DS: Data Data Completed and Pending Pending studies at discharge: Pending at discharge 10/29/21 09:44 Surgical [PTH] Routine Discharge Plan Discharge Patient Disposition: Home Health Service Discharge Diagnosis: s/p CEA Referrals: [facility] [Outside] - 3-5 Days (USP AND HOME PHYSICAL THERAPY ) Michael Zafar MD [Primary Care Provider] - 1 Week Discharge Medications: Continued atorvastatin 40 mg tablet 40 mg PO BEDTIME RF: 0 thiamine HCl (vitamin B1) 100 mg tablet 100 mg PO DAILY RF: 0 amlodipine 5 mg tablet 2.5 mg PO BEDTIME RF: 0 allopurinol 100 mg tablet 200 mg PO DAILY RF: 0 magnesium oxide 400 mg (241.3 mg magnesium) tablet 400 mg PO DAILY RF: 0 tamsulosin 0.4 mg capsule 0.4 mg PO BEDTIME RF: 0 omeprazole 20 mg capsule,delayed release(DR/EC) 20 mg PO DAILY RF: 0 lorazepam 1 mg tablet 1 mg PO BEDTIME RF: 0 Eliquis 2.5 mg tablet 2.5 mg PO BID RF: 0 aspirin 81 mg Tablet,Delayed Release (Dr/Ec) 81 mg PO DAILY RF: 0 melatonin 5 mg Tablet 5 mg PO BEDTIME PRN (Reason: Insomnia) RF: 0 cholecalciferol (vitamin D3) 50 mcg (2,000 unit) Tablet 50 mcg PO DAILY RF: 0 Discharge Orders: Discharge Order (Routine); Ordered 11/01/21 Ordered By: Carlos Olivera Diet: advance to usual diet Activity on Discharge: As tolerated Stand Alone Forms: Patient Portal Discharge page Activity Restrictions/Additional Instructions: You may shower as early as tomorrow. Take it easy today and you may ambulate around the house. Within 24 hours you can resume normal activity You may climb a flight of stairs as tolerated Do not lift anything heavier than a gallon of milk for [address] Zepeda in follow-up in approximately 2 weeks time. You should already have an appointment if not please call my office at [phone] Please see above for any change in medications - Advil for pain If you notice excessive bleeding please immediately call my office or return to the emergency room. Care Plan Goals: post op Health Concerns: carotid stenosis Plan of Treatment: surveilence follow up Assessment: s/p carotid surgery Discharge Date/Time: 11/01/21 09:55
--- NOTE | 2021-10-31 14:10 | W.MHC.F2F ---
Service Date Service Date: 10/31/21 Encounter Date of encounter: 11/01/21 Reasons for Services Reason for nursing home: postoperative assessment and/or care, medication management, medication treatment and teach disease management Reason for physical therapy: home safety and mobility, therapeutic exercises, gait/transfer training and energy conservation Homebound: Leaving the home is medically contraindicated at this time without the asist of a device and/or another person due th the listed conditions above and below. Reason homebound: unsteady gait / fall risk and weakness related to hospital stay Certification: Based on the above findings, I certify that this patient is confined to the home and needs intermittent nursing home care, physical therapy and/or speech therapy, or continues to need occupational therapy. The patient is under my care, and I have initiated the establishment of the plan of care. The patient will be followed by a physician who will periodically review the plan of care.
--- NOTE | 2021-10-31 14:39 | P.PNIM_ITS ---
Subjective Subjective Date of Service: 10/31/21 Interval History: cc: unsteady gait interval history: no complaints Cardiovascular Cardiovascular: Reports no additional cardiovascular complaints Respiratory Respiratory: Reports no additional respiratory complaints Physical Exam Vital Signs: Vital Signs: Last Vital Signs Temp 99.7 F 10/31/21 11:53 Pulse 70 10/31/21 11:53 Resp 18 10/31/21 11:53 BP 146/70 H 10/31/21 11:53 Pulse Ox 96 10/31/21 11:53 BMI result Body Mass Index 30.2 General: AO X 3, no acute distress Resp:? CTA bilateral, no accessory muscles used CVS: S1,S2,RRR GI: soft, non tender, non distended Neuro:? motor grossly intact, alert Psych: appropriate affect, appropriate insight? Objective Data Active Medications Allopurinol (Allopurinol 100 Mg Tablet) 200 mg PO DAILY [facility] Last Admin: 10/31/21 08:32 Dose: 200 mg Documented by: MARY Amlodipine Besylate (Amlodipine Besylate 2.5 Mg Tablet) 2.5 mg PO BEDTIME [facility]; Protocol Last Admin: 10/30/21 21:47 Dose: 2.5 mg Documented by: JENNIFER Apixaban (Apixaban 2.5 Mg Tablet) 2.5 mg PO BID [facility] Last Admin: 10/31/21 08:32 Dose: 2.5 mg Documented by: MARY Aspirin (Aspirin Enteric Coated 81 Mg Tablet.) 81 mg PO DAILY [facility] Last Admin: 10/31/21 08:32 Dose: 81 mg Documented by: MARY Atorvastatin Calcium (Atorvastatin Calcium 40 Mg Tablet) 40 mg PO BEDTIME [facility] Last Admin: 10/30/21 21:48 Dose: 40 mg Documented by: JENNIFER Lorazepam (Lorazepam 1 Mg Tablet) 1 mg PO BEDTIME [facility] Last Admin: 10/30/21 22:32 Dose: 1 mg Documented by: JENNIFER Magnesium Oxide (Magnesium Oxide 400 Mg Tablet) 400 mg PO BEDTIME [facility] Last Admin: 10/30/21 21:48 Dose: 400 mg Documented by: JENNIFER Melatonin (Melatonin 3 Mg Tablet) 6 mg PO BEDTIME PRN PRN Reason: Insomnia Omeprazole (Omeprazole 20 Mg Capsule.) 20 mg PO DAILY@0900 [facility] Last Admin: 10/31/21 08:32 Dose: 20 mg Documented by: MARY Oxycodone HCl (Oxycodone Hcl Immed Release 5 Mg Tablet) 5 mg PO Q4H PRN PRN Reason: Pain, Moderate (Pain Scale 4-6 Last Admin: 10/31/21 05:50 Dose: 5 mg Documented by: KEN Sodium Chloride (0.9 % Sodium Chloride Flush 3 Ml Syringe) 3 ml IVFLUSH QSHIFT [facility] Last Admin: 10/31/21 05:51 Dose: 3 ml Documented by: KEN Tamsulosin HCl (Tamsulosin Hcl 0.4 Mg Capsule) 0.4 mg PO BEDTIME [facility] Last Admin: 10/30/21 21:48 Dose: 0.4 mg Documented by: CASTILM Thiamine HCl (Thiamine Hcl 100 Mg Tablet) 100 mg PO DAILY [facility] Last Admin: 10/31/21 08:32 Dose: 100 mg Documented by: MARY Vitamin D (Cholecalciferol (Vitamin D3) 25 Mcg Tablet) 50 mcg PO DAILY [facility] Last Admin: 10/31/21 08:32 Dose: 50 mcg Documented by: MARY Labs CBC & Chem 7: 10/30/21 05:25 10/29/21 04:51 Assessment and Plan (1) PAF (paroxysmal atrial fibrillation): Status: Acute (2) Abnormal gait: Status: Acute (3) Unsteadiness on feet: Status: Acute Assessment and Plan: An 86 years old male with PMH of carotid stenosis, atrial fibrillation post ppm, BPH among others who presented to the hospital complaining of new onset dizziness and unsteadiness for 1 day prior to admission. Abnormal gait small acute to subacute anterior right frontal white matter infactts and posterior periventricular white matter Continue home medications of aspirin statin eliquis Left carotid stenosis Per CTA Severe stenosis of the proximal left internal carotid artery estimated as greater than 90% with only threadlike flow across a short segment. POD 2 left carotid endarcectomy chronic Atrial fibrillation continue eliquis DVT PPX heparin Quality Stroke Does the patient have a stroke diagnosis?: No VTE Prior VTE?: No VTE Risk Level:: Medical - moderate - high VTE Device Contraindication: Treatment Not Indicated VTE Drug Contraindication: N/A - Med Ordered
--- NOTE | 2021-10-31 14:45 | MHC.CM.PN ---
CM ATTEMPTED TO ARRANGE CHAIR [facility] TRANSPORT HOME FOR PT HOWEVER [facility] UNABLE TO RANSPORT UNTIL AFTER MIDNIGHT [facility], /[facility] ALSO UNABLE TO TRANSPORT UNTIL 11/01, TRANSPORT SET UP FOR 0900 TOMORROW 11/01/21, NURSING AND HOSPITALIST AWARE. D/C PLAN: HOME THURSDAY 11/01 AT 0900 W/TOMMY, [facility] FOR CHAIR VAN.
[2021-10-31] MEDS: Atorvastatin Calcium 40 MG TABLET PO (21:38)
[2021-10-31] MEDS: amLODIPine Besylate 2.5 MG TABLET PO (21:38)
[2021-10-31] MEDS: Magnesium Oxide 400 MG TABLET PO (21:38)
[2021-10-31] MEDS: LORazepam 1 MG TABLET PO (21:38)
[2021-10-31] MEDS: Tamsulosin HCL 0.4 MG CAPSULE PO (21:38)
[2021-11-01 00:22] VITALS: BP 131/65; PULSE 76; RESP 18; TEMP 36.2; O2SAT 98
[2021-11-01 04:16] VITALS: BP 122/66; PULSE 65; RESP 18; TEMP 36.5; O2SAT 96
[2021-11-01] MEDS: 0.9 % Sodium Chloride Flush 3 ML SYRINGE IVFLUSH (06:04)
[2021-11-01] MEDS: oxyCODONE HCl Immed Release 5 MG TABLET PO (06:04)
[2021-11-01 07:50] VITALS: BP 150/71; PULSE 61; RESP 18; TEMP 36.7; O2SAT 94
[2021-11-01] MEDS: allopurinoL 100 MG TABLET 200 MG PO (08:13)
[2021-11-01] MEDS: Apixaban 2.5 MG TABLET PO (08:14)
[2021-11-01] MEDS: Thiamine HCL 100 MG TABLET PO (08:14)
[2021-11-01] MEDS: Omeprazole 20 MG CAPSULE.DR PO (08:14)
[2021-11-01] MEDS: Aspirin Enteric Coated 81 MG TABLET.DR PO (08:14)
[2021-11-01] MEDS: Cholecalciferol (Vitamin D3) 25 MCG TABLET 50 MCG PO (08:14)
== END 2021-11-01 09:55 | disposition home health service (06) | DRG 37 ==
LOC: HO.ED 18:53 → HO.EDOVER 10-24 11:42 → HO.S3 10-24 17:55 → HO.ICU 10-29 14:43 → HO.S3 10-30 13:14
PROVIDERS: Anesthesiology; Physician Assistant; Surgery Vascular Surgery; Admitting Provider Student in an Organized Health Care Education/Training Program; Emergency Provider Emergency Medicine; PCP Internal Medicine; Visit Provider Internal Medicine
PROC: (CPT 35301; principal; 2021-10-29 07:30)
DX: I65.22 Occlusion and stenosis of left carotid artery (principal); I63.89 Other cerebral infarction; I42.8 Other cardiomyopathies; R27.0 Ataxia, unspecified; I48.0 Paroxysmal atrial fibrillation; E11.9 Type 2 diabetes mellitus without complications; N40.0 Benign prostatic hyperplasia without lower urinary tract symptoms; Z95.0 Presence of cardiac pacemaker; Z20.822 Contact with and (suspected) exposure to COVID-19; Z87.891 Personal history of nicotine dependence; Z95.2 Presence of prosthetic heart valve; Z79.01 Long term (current) use of anticoagulants; Z79.82 Long term (current) use of aspirin; Z79.899 Other long term (current) drug therapy
CPT/HCPCS: 36415; 70450; 70496; 70498; 70551; 71045; 80048; 80053; 80061; 81001; 82077; 82550; 82947; 83735; 84484; 85025; 85027; 85610; 85730; 86850; 86900; 86901; 87635; 88304; 88311; 93005; 93306; 96361; 96374; 97116; 97161; 97165; 97535; 99218; 99285; C1768; J0690; J1100; J1170; J2370; J2405; J3010; Q9967

== ENCOUNTER → 2021-11-10 13:18 | Outpatient (BNVA) | payer MEDICARE, SELFPAY | PROVIDERS: PCP Internal Medicine; Visit Provider Surgery Vascular Surgery | DX: I65.23 Occlusion and stenosis of bilateral carotid arteries (principal) | CPT/HCPCS: 99212 ==

== ENCOUNTER 2022-02-08 10:17 | Outpatient (REF) | payer MEDICARE, SELFPAY ==
--- NOTE | ~2022-02-08 | US_ITS ---
EXAMINATION: US EXTRACRANIAL CAROTID DUPLEX, BILATERAL CLINICAL INFORMATION: Carotid artery stenosis. COMPARISON: CTA head and neck on October 23, 2021. TECHNIQUE: Real-time ultrasound and Doppler techniques (integrating B-mode 2-D vascular images, Doppler spectral analysis and color-flow Doppler imaging) were utilized to interrogate the extracranial carotid arteries, the vertebral arteries and proximal subclavian arteries bilaterally. The degree of stenosis is determined by criteria similar to NASCET. FINDINGS: Right Side: 1. There is mild atherosclerotic plaque seen in the bifurcation/proximal ICA region. 2. The common carotid artery PSV proximally is 54 cm/s and distally 57 cm/s. 3. The proximal internal carotid artery velocities are 59 cm/s systolic and 15 cm/s diastolic. 4. The proximal external carotid artery PSV is 102 cm/s. 5. The vertebral artery shows antegrade flow. 6. The subclavian artery waveforms are normal. Left Side: 1. There is mild atherosclerotic plaque seen in the bifurcation/proximal ICA region. 2. The common carotid artery PSV proximally is 81 cm/s and distally 80 cm/s. 3. The proximal internal carotid artery velocities are 81 cm/s systolic and 19 cm/s diastolic. 4. The proximal external carotid artery PSV is 84 cm/s. 5. The vertebral artery shows antegrade flow. 6. The subclavian artery waveforms are normal. US/US carotid duplex BI IMPRESSION: 1. RIGHT: Minimal, non-hemodynamically significant stenosis of the proximal right internal carotid artery corresponding to a 0-49% stenosis by velocity criteria. 2. LEFT: Minimal, non-hemodynamically significant stenosis of the proximal left internal carotid artery corresponding to a 0-49% stenosis by velocity criteria.
== END 2022-02-08 10:18 | disposition home or self-care (01) ==
LOC: HO.HMGCX 10:17
PROVIDERS: Visit Provider Surgery Vascular Surgery
DX: I65.23 Occlusion and stenosis of bilateral carotid arteries (principal)
CPT/HCPCS: 93880

== ENCOUNTER 2023-10-05 08:59 | Emergency (ER) | payer MEDICARE, SELFPAY ==
[2023-10-05] VITALS (10 sets, daily range): BP systolic 125–154; BP diastolic 50–91; PULSE 69–89; RESP 15–18; TEMP 36.6–36.9; O2SAT 92–99; BMI 26.9
--- NOTE | ~2023-10-05 | CT_ITS ---
EXAMINATION: CT HEAD WITHOUT CONTRAST CLINICAL INFORMATION: Delirium. COMPARISON: 10/24/2021. TECHNIQUE: Contiguous axial imaging was performed from the skull base to vertex without intravenous administration of contrast. This CT examination was performed using dose optimization techniques as appropriate, variously including the following: *Automated exposure control *Adjustment of mA and/or kV according to patient size (this includes techniques or standardized protocols for targeted exams where dose is matched to indication/reason for exam; i.e. extremities or head) *Use of iterative reconstruction technique DLP: 804 mGy-cm FINDINGS: There is cerebral volume loss with prominence of the lateral and the third ventricles. There is mild cerebellar atrophy with prominence of the fourth ventricle. The cortical sulci and cerebellar folia are widened appropriately. There is extensive bilateral periventricular and central white matter diminished attenuation. 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 Pontine hypodensities are also seen. There is no acute territorial defect, hemorrhage or midline shift. The extra-axial spaces are unremarkable. Calvarium: Intact. Maxillofacial sinuses and mastoids: Clear as visualized. CT/CT head/brain wo IV con IMPRESSION: Cerebral volume loss and extensive bilateral periventricular and central white matter diminished attenuation which is nonspecific but 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 No acute intracranial abnormality.
--- NOTE | ~2023-10-05 | XR_ITS ---
EXAMINATION: XR CHEST CLINICAL INFORMATION: Congested. COMPARISON: Chest 10/23/2021 TECHNIQUE: Frontal view of the chest was obtained. FINDINGS: The lungs are well-expanded without acute pneumonic process. The heart size is borderline normal. Pulmonary vascularity is slightly enlarged. There are dual pacer electrodes in right atrium and right ventricle. There is aortic valve stent in place. Median sternotomy sutures are visualized from previous intervention. No gross bony abnormality. XR/XR chest 1V IMPRESSION: 1. No acute pulmonary process seen. 2. Mild prominence of pulmonary vascularity question mild congestion. Stable dual pacer electrodes. New aortic valve stent placement since 2020
--- NOTE | 2023-10-05 09:13 | ED.PSYCH ---
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 He denies all of this. EMS saw no wright on his neck. [facility] sent him to the ED for this MD complaint: other (behavior changes) Onset (ago): unknown Duration: intermittent History of same: No Relieving factors: none Exacerbating factors: other (states he really does not like it at [facility]) Context: other (newly at rehab for L patella fracture) Associated psychiatric symptoms: none Associated symptoms: denies other symptoms Treatments prior to arrival: none Related Data Home Medications Medication Instructions Recorded Confirmed allopurinol 100 mg tablet 200 mg PO DAILY 10/23/21 10/05/23 amlodipine 5 mg tablet 5 mg PO BEDTIME 10/23/21 10/05/23 apixaban 2.5 mg tablet (Eliquis) 2.5 mg PO BID 10/23/21 10/05/23 aspirin 81 mg tablet,delayed 81 mg PO DAILY 10/23/21 10/05/23 release atorvastatin 40 mg tablet 40 mg PO BEDTIME 10/23/21 10/05/23 cholecalciferol (vitamin D3) 50 50 mcg PO DAILY 10/23/21 10/05/23 mcg (2,000 unit) tablet lorazepam 1 mg tablet 1 mg PO BEDTIME 10/23/21 10/05/23 omeprazole 20 mg capsule,delayed 20 mg PO DAILY 10/23/21 10/05/23 release tamsulosin 0.4 mg capsule 0.4 mg PO BEDTIME 10/23/21 10/05/23 thiamine HCl (vitamin B1) 100 mg 100 mg PO DAILY 10/23/21 10/05/23 tablet folic acid 1 mg tablet 1 mg PO DAILY 10/05/23 10/05/23 furosemide 20 mg tablet 20 mg PO DAILY 10/05/23 10/05/23 hydroxyzine HCl 25 mg tablet 25 mg PO TID PRN Anxiety 10/05/23 10/05/23 magnesium oxide 400 mg (241.3 mg 400 mg DAILY 10/05/23 10/05/23 magnesium) tablet melatonin 3 mg tablet 3 mg PO BEDTIME PRN Insomnia 10/05/23 10/05/23 multivitamin 1 tab PO DAILY 10/05/23 10/05/23 nystatin 100,000 unit/gram topical 1 appl topical BID 10/05/23 10/05/23 powder (Nystop) oxycodone 5 mg tablet 5 mg PO Q6H PRN Pain (Scale Score 10/05/23 10/05/23 4-6) polyethylene glycol 3350 17 gram 17 g PO BID 10/05/23 10/05/23 oral powder packet pyridoxine (vitamin B6) 50 mg 50 mg PO DAILY 10/05/23 10/05/23 capsule sennosides 8.6 mg tablet (senna) 8.6 mg PO DAILY 10/05/23 10/05/23 Allergies Allergy/AdvReac Type Severity Reaction Status Date / Time acetaminophen [From Percocet] Allergy Unknown Verified 11/10/21 13:29 bee pollen [bee stings] Allergy Unknown Verified 11/10/21 13:29 carvedilol Allergy Unknown Verified 11/10/21 13:29 citalopram Allergy Unknown Verified 11/10/21 13:29 colesevelam [From WelChol] Allergy Unknown Verified 11/10/21 13:29 fluoxetine Allergy Unknown Verified 11/10/21 13:29 gabapentin Allergy Unresponsiv Verified 11/10/21 13:29 e lactose Allergy Unknown Verified 11/10/21 13:29 lisinopril Allergy Unknown Verified 11/10/21 13:29 mirtazapine [From Remeron] Allergy Unknown Verified 11/10/21 13:29 oxycodone [From Percocet] Allergy Unknown Verified 11/10/21 13:29 venlafaxine [From Effexor] Allergy Unknown Verified 11/10/21 13:29 Review of Systems Review of Systems: Constitutional : No Fever, No Chills ENT/Mouth : No Ear Pain, No Hoarseness, No sore throat Eyes: No Eye Pain, No Swelling, No Redness, No Foreign Body Cardiovascular : No Chest Pain, No SOB Respiratory : No Cough, No Dyspnea Gastrointestinal : No Nausea, No Vomiting, No Diarrhea, No abdominal Pain Genitourinary : No Dysuria, No Hematuria Musculoskeletal : positive joint pain, No Myalgias, No Joint Swelling Skin : No Skin lacerations, No rash Neuro : No Weakness, No Numbness, No Loss of Consciousness, No Dizziness, No Headache Psych : No Anxiety/Panic, No Depression, no SI, no HI All other systems reviewed and are negative [facility] Past Medical History Source: old records reviewed Medical History PAF (paroxysmal atrial fibrillation) NICM (nonischemic cardiomyopathy) Diabetes Pacemaker Surgical History History of right-sided carotid endarterectomy Hx of CABG Status post transcatheter aortic valve replacement (TAVR) using bioprosthesis Family History Family History Mother CAD (coronary artery disease) Social History Social History Household Members: None Housing: House Do you presently have visiting nurse or other home services: Yes Alcohol intake: unknown Comment: pt refused bed alarm as he needs to stand at the side of the bed to void Patient Tobacco Use Status: Former Tobacco user Smoked in Last 30 Days: No Advance Directives: No service: No Current occupational status: retired Physical Exam Vital Signs: Vital Signs: Last Vital Signs Temp 98.4 F 10/05/23 09:39 Pulse 74 10/05/23 11:56 Resp 15 10/05/23 11:56 BP 144/68 H 10/05/23 11:56 Pulse Ox 95 10/05/23 09:39 O2 Del Method Room Air 10/05/23 11:56 BMI result Body Mass Index 26.9 Appearance: Alert. Oriented X2 - time. No acute distress. Very hard of hearing Eyes: Pupils equal, round and reactive to light. ENT: Pharynx normal. Neck: Normal inspection. Neck supple. CVS: Normal heart rate and rhythm. Pulses normal. Respiratory: No respiratory distress. Breath sounds normal. Abdomen: Soft and nontender. Skin: Skin warm and dry. Normal skin color. Normal skin turgor. Extremities: L patella in brace has some mild ttp Neuro: Oriented X 2 - slightly confused on time No motor deficit. No sensory deficit. Course Course Course Narrative: Physician observation started at 1249pm. Patient placed in physician observation because the patient needed more time for cARE team and CM to assess psychiatric and behavioral needs. At the time observation was started the patient's vitals were stable, patient is alert and oriented but slightly agitated, Neuro: nonfocal, CV RRR, Lungs clear Reevaluation(s) Reevaluation #1: Arleth HCP here who is his friends notes months of bizarre behaviors, agitations, delusions, paranoia even before fall Medications Administered Discontinued Medications Generic Name Dose Route Start Last Admin Trade Name Freq PRN Reason Stop Dose Admin Potassium Chloride 40 meq 10/05/23 10:48 10/05/23 10:56 Potassium Chloride Packet 20 Meq Packet PO 10/05/23 10:49 40 meq ONCE ONE Administration Medical Decision Making Medical Decision Making MDM Narrative: 88 yo male with PMH of carotid stenosis, CABG, R sided endarterectomy, NICM, 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 Differential Diagnosis Differential Diagnoses: The differential diagnosis associated with the presentation includes adjustment disorder Admission/Observation Consideration of admission/observation: Escalation of care including admission/observation considered Lab Data [facility] Lab Attestation statement: I reviewed the patient's lab results. 10/05/23 10:23 10/05/23 10:23 Labs: Lab Results 10/05/23 Range/Units 10:23 WBC 8.3 (4.8-10.8) X10*3/uL RBC 4.06 L (4.60-5.80) X10*6/uL Hgb 12.6 L (14.0-18.0) g/dl Hct 37.6 L (42.0-52.0) % MCV 92.6 (80.0-98.0) fL MCH 31.0 (27.0-33.0) pg MCHC 33.5 (31.0-36.0) g/dl RDW 13.4 (11.0-16.0) % Plt Count 176 D (160-400) X10*3/uL MPV 9.9 (9.4-12.4) fL Immature Gran % (Auto) 0.5 H (0.0-0.4) % Neut % (Auto) 63.7 (45-73) % Lymph % (Auto) 20.7 (20-40) % Blair % (Auto) 12.7 H (2-11) % Eos % (Auto) 1.9 (0-4) % Baso % (Auto) 0.5 (0-2) % Lymph # (Auto) 1.7 (1.2-4.9) X10*3/uL Blair # (Auto) 1.1 (0.1-1.2) X10*3/uL Eos # (Auto) 0.2 (0.0-0.4) X10*3/uL Baso # (Auto) 0.0 (0.0-0.2) X10*3/uL Abs Immat Gran (auto) 0.04 H (0.00-0.03) X10*3/uL Absolute Neuts (auto) 5.3 (2.0-8.3) x10*3/uL Absolute Nucleated RBC 0.000 (0.0-0.012) X10*3/uL Nucleated RBC % (auto) 0.0 (0.0-0.2) /100WBC Sodium 137 (135-145) mmol/L Potassium 3.2 L (3.3-5.1) mmol/L Chloride 99 (96-108) mmol/L Carbon Dioxide 28 (22-29) mmol/L Anion Gap 13 (12-20) BUN 12 (9-16) mg/dL Creatinine 1.01 (0.5-1.4) mg/dL Estim Creat Clear Calc 49.0 Estimated GFR > 60 Random Glucose 106 (60-115) mg/dL Calcium 9.0 (8.4-10.2) mg/dL Independent Historian Clinical information obtained from an independent historian. History obtained from or confirmed by: EMS External Record Review External record reviewed: Inpatient record Discharge Plan Discharge Clinical Impression: Delusions Patient Disposition: Still a Patient Prescriptions: No Action atorvastatin 40 mg tablet 40 mg PO BEDTIME thiamine HCl (vitamin B1) 100 mg tablet 100 mg PO DAILY amlodipine 5 mg tablet 5 mg PO BEDTIME allopurinol 100 mg tablet 200 mg PO DAILY tamsulosin 0.4 mg capsule 0.4 mg PO BEDTIME omeprazole 20 mg capsule,delayed release(DR/EC) 20 mg PO DAILY lorazepam 1 mg tablet 1 mg PO BEDTIME Eliquis 2.5 mg tablet 2.5 mg PO BID aspirin 81 mg Tablet,Delayed Release (Dr/Ec) 81 mg PO DAILY cholecalciferol (vitamin D3) 50 mcg (2,000 unit) Tablet 50 mcg PO DAILY multivitamin [Multivites] Tablet 1 tab PO DAILY sennosides [senna] 8.6 mg Tablet 8.6 mg PO DAILY polyethylene glycol 3350 17 gram Powder In Packet 17 g PO BID melatonin 3 mg Tablet 3 mg PO BEDTIME PRN (Reason: Insomnia) magnesium oxide 400 mg (241.3 mg magnesium) tablet 400 mg DAILY folic acid 1 mg Tablet 1 mg PO DAILY hydroxyzine HCl 25 mg Tablet 25 mg PO TID PRN (Reason: Anxiety) furosemide 20 mg Tablet 20 mg PO DAILY nystatin [Nystop] 100,000 unit/gram Powder 1 appl TOPICAL BID Patient Comments: APPPLY TO GROIN BID oxycodone 5 mg Tablet 5 mg PO Q6H PRN (Reason: Pain (Scale Score 4-6)) pyridoxine (vitamin B6) 50 mg Capsule 50 mg PO DAILY
--- OUTSIDE RECORDS SUMMARY | 2023-10-05 09:45 | XMS_ITS | Continuity of Care Document ---
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 Name Role Phone Michael Zafar MD Primary Care Physician [place] [facility] [place] 06/13/20 - 06/20/20 [facility] Adult [address] [place] [address]- [facility] Encounter Diagnosis Type 2 diabetes with nephropathy(Discharge Diagnosis) - 06/13/20 Type 2 diabetes mellitus with peripheral angiopathy(Discharge Diagnosis) - 06/13/20 Arteriosclerotic heart disease (ASHD) cabg 2002;x1(Discharge Diagnosis) - 06/13/20 Benign Essential Hypertension(Discharge Diagnosis) - 06/13/20 Hyperlipidemia NOS(Discharge Diagnosis) - 06/13/20 PAF (paroxysmal atrial fibrillation) [id number] 6(Discharge Diagnosis) - 06/13/20 Chronic anticoagulation(Discharge Diagnosis) - 06/13/20 Chronic gout(Discharge Diagnosis) - 06/13/20 Chronic renal disease, stage 3, moderately decreased glomerular filtration rate (GFR) between 30-59mL/min/1.73 square meter(Discharge Diagnosis) - 06/13/20 Chronic diarrhea episodic normal IGA TTG 2015(Discharge Diagnosis) - 06/13/20 Attending Physician: Michael Zafar MD Allergies, Adverse Reactions, Alerts Substance Reaction Severity Status lisinopril 1, 2 Active gabapentin unknown Active carvedilol 3 Active citalopram dizzy Active Percocet vomiting Active Effexor dizziness Active Remeron 4 dizziness Active Bee Stings Active Welchol muscle and joint aches Activ e Percocet 5/325 5 Active FLUoxetine dizziness Active 1cough 2possible 3blurred vision 4nightmares 5Pt states the last time he hade it, 16 years ago, it made him vomit Immunizations Given and Recorded Vaccine Date Status Refusal Reason Influenza Virus Vaccine (oldterm) 08/14/19 Recorde d Influenza Virus Vaccine (oldterm) 1 08/31/06 Given influenza virus vaccine, inactivated 2 07/31/18 Re corded influenza virus vaccine, inactivated 3 06/30/17 Re corded influenza virus vaccine, inactivated 08/26/16 Give n influenza virus vaccine, inactivated 4 08/10/15 Gi mireya influenza virus vaccine, inactivated 08/07/14 Give n influenza virus vaccine, inactivated 07/26/13 Give n influenza virus vaccine, inactivated 11/27/10 Give n pneumococcal 13-valent vaccine 12/02/14 Given Fluarix (oldterm) 08/23/12 Given Fluarix (oldterm) 08/10/11 Given pneumococcal 23-valent vaccine 01/18/11 Given Tet/Diphth/Acel, Pertussis (oldterm) 12/15/10 Give n Influenza Inactive (IM) (oldterm) 07/25/09 Given Influenza Inactive (IM) (oldterm) 5 08/13/08 Given Influenza Inactive (IM) (oldterm) 09/01/07 Given Zoster Vaccine Live 12/25/08 Given tetanus-diphtheria toxoids (Td) 6 02/03/01 Given Pneumococcal Vaccine (oldterm) 11/07/98 Given 1Admin Note: GIVEN IN CLINIC SHAM 2Location History: [place] Comment: [06/30/2017] HIGH DOSE RECIEVED AT [facility] [address] [place] Comment: [08/12/2015] Received at [facility] [place] 5Admin Note: given in clinic 6Admin Note: historical data Medications acetaminophen 325 mg oral tablet 650 mg, By Mouth, Every 4 hours, PRN, Refills 0, Maintenance, Pain , Mild, 11/10/18 15:51:53 EST Start Date: 11/10/18 Status: Ordered amoxicillin 500 mg oral capsule 4 capsule = 2,000 mg, By Mouth, Once, given 1 hour prior to dental procedure, # 4 capsule, 3 Refills, Soft Stop, 11/12/18 11:08:47 EST Start Date: 11/12/18 Status: Ordered apixaban 2.5 mg oral tablet 1 tablet = 2.5 mg, By Mouth, 2 times a day, # 6 LOT [id number] EXP 2-21, # 180 tablet, 0 Refills, Maintenance, 06/13/20 11:45:00 EDT, Dry Weight Start Date: 06/13/20 Status: Ordered apixaban 2.5 mg oral tablet 1 tablet = 2.5 mg, By Mouth, 2 times a day, # 180 tablet, 3 Refills, Maintenance, 03/05/20 13:50:00EDT, [facility]/pharmacy #[id number], 176.5, cm, 12/25/19 15:48:00 EST, Height, 83.4, kg, 11/02/18 13:42:00 EST,Dry Weight Start Date: 03/05/20 Status: Ordered aspirin 81 mg oral tablet 1 tablet = 81 mg, By Mouth, Daily, # 90 tablet, 3 Refills, 1 tablet By Mouth Daily,x90 days Start Date: 10/26/13 Stop Date: 10/21/14 Status: Ordered Flonase 50 mcg/inh nasal spray 1 sprays, Nares, Both, 2 times a day, # 16 Gm, 0 Refills, Maintenance, 10/10/19 11:35:05 EST, [place], 1 sprays Nares, Both 2 times a day, 176.5, cm, 10/10/19 11:18:43 EST, Height, 83.4, kg, 11/02/18 13:42:46 EST, Dry Weight Start Date: 10/10/19 Status: Ordered Lasix 20 mg oral tablet See Instructions, 1 tablet By Mouth as needed for weight gain of 2lbs in a day or 5lbs in a week, #90 tablet, Refills 3, Tot. Refills 3, Maintenance, 12/17/19 11:49:00 EST, Instructions Replace Required Details, Route to Pharmacy Electronically, [facility]/... Start Date: 12/17/19 Status: Ordered LIDODERM PATCH LIDODERM PATCH, See Instructions, # 14 patch, Refills 0, Tot. Refills 0, Maintenance, PUT 1 PATCH OVER AREA PAIN;ONE CHEST,ONE BACK PUT ON BEDTIME.REMOVE 12 HIOURS LATER, 09/14/19 11:53:13 EST, Compound Start Date: 09/14/19 Status: Ordered Lipitor 40 mg oral tablet 1 tablet = 40 mg, By Mouth, Daily at bedtime, # 90 tablet, 3 Refills, Maintenance, 12/17/19 11:48:00 EST, Tablet, [facility]/pharmacy #[id number], Rx resent from 11/03/16., 176.5, cm, 12/17/19 11:35:00 EST, Height, 83.4, kg, 11/02/18 13:42:00 EST, Dry Weight Start Date: 12/17/19 Status: Ordered LORazepam 2 mg oral tablet 1 tablet = 2 mg, By Mouth, 2 times a day, # 60 tablet, 0 Refills, Maintenance, 06/16/20 13:49:00 EDT, [facility]/pharmacy #[id number], 176.5, cm, 06/13/20 12:04:00 EDT, Height, 83.4, kg, 11/02/18 13:42:00 EST, Dry Weight Start Date: 06/16/20 Status: Ordered magnesium oxide 400 mg oral tablet 1 tablet = 400 mg, By Mouth, 2 times a day, # 60 tablet, 3 Refills, Maintenance, 06/16/20 11:54:00 EDT, [facility]/pharmacy #[id number], 176.5, cm, 06/13/20 12:04:00 EDT, Height, 83.4, kg, 11/02/18 13:42:00 EST, Dry Weight Start Date: 06/16/20 Status: Ordered metoprolol 25 mg oral tablet, extended release 25 mg, 1, tablet, By Mouth, Daily, # 90 tablet, Refills 3, Tot. Refills 3, Maintenance, 06/16/20 9:41:00 EDT, Route to Pharmacy Electronically, [facility]/pharmacy #[id number], succinate, 176.5, cm, 06/13/20 12:04:00 EDT, Height, 83.4, kg, 11/02/18 13:42:00 EST, D... Start Date: 06/16/20 Stop Date: 06/11/21 Status: Ordered omeprazole 20 mg oral delayed release tablet 1 tablet = 20 mg, By Mouth, Daily, # 90 tablet, 3 Refills, Maintenance, 12/17/19 11:48:00 EST, EC Tablet, [facility]/pharmacy #[id number], 176.5, cm, 12/17/19 11:35:00 EST, Height, 83.4, kg, 11/02/18 13:42:00 EST, Dry Weight Start Date: 12/17/19 Status: Ordered tamsulosin 0.4 mg oral capsule 0.4 mg, By Mouth, Daily at bedtime, # 90 capsule, Refills 3, Tot. Refills 3, Maintenance, 12/17/19 11:48:00 EST, Route to Pharmacy Electronically, [facility]/pharmacy #[id number], 176.5, cm, 12/17/19 11:35:00 EST, Height, 83.4, kg, 11/02/18 13:42:00 EST, Dry Weight Start Date: 12/17/19 Status: Ordered Tums 500 mg oral tablet, chewable 500 mg, 1, tablet, Chew, Every 4 hours, PRN, Refills 0, Maintenance, Dyspepsia, 11/10/18 15:51:58 EST Start Date: 11/10/18 Status: Ordered Vitamin D3 2000 intl units oral capsule 1 capsule = 2,000 International_Units, By Mouth, Daily, # 30 capsule, 11 Refills, Maintenance Start Date: 01/25/13 Stop Date: 01/20/14 Status: Ordered Problem List Condition Effective Dates Status Health Status Inform ant Bee sting allergy(Confirmed) 1 Active Anxiety(Confirmed) Active Aortic valve prosthesis pres [id number] TAVR 2017(Confirmed) 2, 3 Active Arteriosclerotic heart disea se (ASHD) cabg 2002;x1(Confirmed) 4, 5 Active Benign Essential Hypertension(Confirmed) Active Benign essential microscopic hematuria(Confirmed) 6, 7, 8 12/20/08 Active BPH without urinary obstruction(Confirmed) 9 Active Cataract, bilateral(Confirmed) Active Carpal tunnel syndrome(Confirmed) Active Cervical disc disorder(Confirmed) 10 Active Chest wall pain(Confirmed) Active Chronic back pain(Confirmed) 11 Active Chronic diarrhea episodic no rmal IGA TTG 2014(Confirmed) 12, 13, 14 Active Chronic renal disease, stage 3, moderately decreased glomerular filtration rate (GFR) between 30-59 mL/min/1.73 square meter(Confirmed) Active CHF (congestive heart failur e) systolic(Confirmed) Active Encounter for monitoring kris g-term proton pump inhibitor therapy(Confirmed) Active Elevated PSA(Confirmed) 15 Active Foot pain(Confirmed) Active Foot pain, bilateral(Confirmed) Active GERD EGD 2006y(Confirmed) Active Chronic gout(Confirmed) 08/09/19 Active H/O endarterectomy RT 2009(Confirmed) Active 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 Active Hx of CABG x ;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) 16 Active Hyperlipidemia NOS(Confirmed) Active Hypomagnesemia(Confirmed) Active Inguinal hernia;left(Confirmed) 12/17/08 Active Insomnia(Confirmed) Active Chronic knee pain(Confirmed) 17 Active LBBB (left bundle branch block)(Confirmed) 18 Active Left carotid artery stenosis ;prior rt cea(Confirmed) Active Left inguinal hernia(Confirmed) Active Localized, primary osteoarth ritis of the wrist(Confirmed) Active Chronic anticoagulation(Confirmed) Active Spondylosis of lumbar spine( Confirmed) 19, 20, 21 Active Depression, major(Confirmed) 22 Active Major depression(Confirmed) Active Bladder cancer(Confirmed) 23, 24 Active Mild mitral insufficiency(Confirmed) Active Nephrolithiasis(Confirmed) Active Knee osteoarthritis(Confirmed) 25 Active Wrist pain, chronic(Confirmed) 26 Active PAF (paroxysmal atrial fibri llation) [id number] 6(Confirmed) Active Pituitary microadenoma(Confi rmed) 27, 28, 29 Active Restless legs syndrome (RLS)(Confirmed) Active Thrombocytopenia(Confirmed) 30, 31 06/22/09 Active Tricuspid insufficiency(Confirmed) Active Trochanteric bursitis of rig ht hip(Confirmed) Active Type 2 diabetes with nephropathy(Confirmed) Active Type 2 diabetes mellitus wit h peripheral angiopathy(Confirmed) Active 1educated about use epi pen /when call 2[employer] VALVE [facility] [id number] 41 graft 5CABG 2002 6Dr nini addressing 7nephrolithiasis 8to workup 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 12giardiam,o/p ,culture neg 13normal IGA/TTG 14workup 15urology addressing [id number] 17ortho 18chronic 19RFA 20djd xray 2-015 21xray 2004 LS arthritis etc 22Zung=mod depression 23BCG 24carcinoma in situ 25saw ortho 26s aw ortho;injected SEVERE pain 27endocrinology addressing 28MRI pti ;refer endo 29mri c spine 2014 30per hematology ? 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;to follow 31workup in progress Diagnosis Diagnosis Type Effective Dates Health Status Clinical Service Informant Type 2 diabetes with nephropathy Discharge Diagnosis 06/13/20 Type 2 diabetes mellitus with peripheral angiopathy Discharge Diagnosis 06/13/20 Arteriosclerotic heart disease (ASHD) cabg 2002;x1 Discharge Diagnosis 06/13/20 Benign Essential Hypertension Discharge Diagnosis 06/13/20 Hyperlipidemia NOS Discharge Diagnosis 06/13/20 PAF (paroxysmal atrial fibrillation) [id number] Discharge Diagnosis 06/13/20 Chronic anticoagulation Discharge Diagnosis 06/13/20 Chronic gout Discharge Diagnosis 06/13/20 Chronic renal disease, stage 3, moderately decreased glomerular filtration rate (GFR) between 30-59 mL/min/1.73 square meter Discharge Diagnosis 06/13/20 Chronic diarrhea episodic normal IGA TTG 2014 Discharge Diagnosis 06/13/20 Vital Signs Most recent to oldest [Reference Range]: 1 2 3 Height 176.5 cm (06/13/20 12:04 PM) 176.5 cm (06/13/20 11:53 AM) 176.5 cm (06/13/20 11:36 AM) Weight 84.4 kg (06/13/20 11:36 AM) Oxygen Saturation [94-100 %] 98 % (06/13/20 11:36 AM) Pulse Rate [55-90 bpm] 52 bpm *L* (06/13/20 11:36 AM) Body Mass Index [18.5-24.99] 27.09 *H* (06/13/20 11:36 AM) Blood Pressure [90-138/55-84 mm Hg] 136/80mm Hg (06/13/20 12:04 PM) 142/78mm Hg *H* (06/13/20 11:53 AM) 152/70mm Hg *H* (06/13/20 11:36 AM) Respiratory Rate [16-30 br/min] 16 br/min (06/13/20 11:36 AM) Blood pressure sites Arm, left (06/13/20 12:04 PM) Arm, left (06/13/20 11:53 AM) Arm, left (06/13/20 11:36 AM) Social History Social History Type Response Smoking Status Former smoker, quit more than 30 days ago entered on: 03/01/19 Sex
--- OUTSIDE RECORDS SUMMARY | 2023-10-05 09:45 | XMS_ITS | Continuity of Care Document ---
Author Name Unknown Organization [facility] Tom lt Address [address] [place] [address]- Care Team Providers Care Reverser Name Role Phone Charisma LENZ, Michael Boston Primary Care Physician Encounter [facility] [place] Date(s): 10/07/21 - 11/06/21 [facility] Adult [address] [place] [address]- Allergies, Adverse Reactions, Alerts Substance Reaction Severity Status lisinopril 1, 2 Active gabapentin unknown Active carvedilol 3 Active citalopram dizzy Active Percocet vomiting Active Effexor dizziness Active Remeron 4 dizziness Active Bee Stings Active Welchol muscle and joint aches Activ e Lactose 5, 6 diarrhea Active Percocet 5/325 7 Active FLUoxetine dizziness Active traZODone Active 1cough 2possible 3blurred vision 4nightmares 5Patient states 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 6patient states he drinks milk all of the time 7Pt states the last time he hade it, 16 years ago, it made him vomit Immunizations Given and Recorded Vaccine Date Status Refusal Reason influenza virus vaccine, inactivated 1 08/12/21 Gi mireya influenza virus vaccine, inactivated 08/06/20 Give n influenza virus vaccine, inactivated 2 07/31/18 Re corded influenza virus vaccine, inactivated 3 06/30/17 Re corded influenza virus vaccine, inactivated 08/26/16 Give n influenza virus vaccine, inactivated 4 08/10/15 Gi mireya influenza virus vaccine, inactivated 08/07/14 Give n influenza virus vaccine, inactivated 07/26/13 Give n influenza virus vaccine, inactivated 11/27/10 Give n SARS-CoV-2 (COVID-19) mRNA BNT-162b2 vac 5 02/08/21 Recorded SARS-CoV-2 (COVID-19) mRNA BNT-162b2 vac 01/18/21 Recorded Influenza Virus Vaccine (oldterm) 08/14/19 Recorde d Influenza Virus Vaccine (oldterm) 6 08/31/06 Given pneumococcal 13-valent vaccine 12/02/14 Given Fluarix (oldterm) 08/23/12 Given Fluarix (oldterm) 08/10/11 Given pneumococcal 23-valent vaccine 01/18/11 Given Tet/Diphth/Acel, Pertussis (oldterm) 12/15/10 Give n Influenza Inactive (IM) (oldterm) 07/25/09 Given Influenza Inactive (IM) (oldterm) 7 08/13/08 Given Influenza Inactive (IM) (oldterm) 09/01/07 Given Zoster Vaccine Live 12/25/08 Given tetanus-diphtheria toxoids (Td) 8 02/03/01 Given Pneumococcal Vaccine (oldterm) 11/07/98 Given 1Result Comment: [facility] [id number] 2Location History: [place] 3Result Comment: [06/30/2017] HIGH DOSE RECIEVED AT [facility] 4Rrenée Comment: [08/12/2015] Received at [facility] [place] 5Result Comment: Pfizer right deltoid lot [id number] exp [facility] 6Admin Note: GIVEN IN CLINIC SHAM 7Admin Note: given in clinic 8Admin Note: historical data Medications acetaminophen 325 mg oral tablet 650 mg, By Mouth, Every 4 hours, PRN, Refills 0, Maintenance, Pain , Mild, 11/10/18 15:51:53 EST Start Date: 11/10/18 Status: Ordered allopurinol 100 mg oral tablet 200 mg, 2, tablet, By Mouth, Daily, # 90 tablet, Refills 1, Tot. Refills 1, Maintenance, 09/01/21 11:50:00 EDT, Route to Pharmacy Electronically, [facility], 175, cm, 08/12/21 15:35:00 EDT, Height, 84.1, kg, 06/07/21 4:26:00 EDT,... Start Date: 09/01/21 Status: Ordered amLODIPine 5 mg oral tablet See Instructions, 1/2 at night, # 45 each, Refills 1, Tot. Refills 1, Maintenance, 06/08/21 11:27:00 EDT, Instructions Replace Required Details, Route to Pharmacy Electronically, [facility]/pharmacy #[id number], 175, cm, 06/07/21 8:16:00 EDT, Height, 84.1, kg, ... Start Date: 06/08/21 Status: Ordered aspirin 81 mg oral tablet 1 tablet = 81 mg, By Mouth, Daily, # 90 tablet, 3 Refills, 1 tablet By Mouth Daily,x90 days Start Date: 10/26/13 Stop Date: 10/21/14 Status: Ordered atorvastatin 40 mg oral tablet 1 tablet, By Mouth, Daily at bedtime, # 90 tablet, 1 Refills, 09/01/21 11:50:00 EDT, [facility], 175, cm, 08/12/21 15:35:00 EDT, Height, 84.1, kg, 06/07/21 4:26:00 EDT, Dry Weight Start Date: 09/01/21 Status: Ordered Eliquis 2.5 mg oral tablet 1 tablet, By Mouth, 2 times a day, # 180 tablet, 3 Refills, Maintenance, 03/17/21 11:43:00 EDT, [id number], 175, cm, 02/06/21 10:40:00 EDT, Height, 79, kg, 11/26/20 11:00:00 EST, Dry Weight Start Date: 03/17/21 Status: Ordered Lasix 20 mg oral tablet See Instructions, 1 tablet By Mouth as needed for weight gain of 2lbs in a day or 5lbs in a week, #90 tablet, Refills 3, Tot. Refills 3, Maintenance, 12/17/19 11:49:00 EST, Instructions Replace Required Details, Route to Pharmacy Electronically, [facility]/... Start Date: 12/17/19 Status: Ordered LIDODERM PATCH LIDODERM PATCH, See Instructions, # 14 patch, Refills 0, Tot. Refills 0, Maintenance, PUT 1 PATCH OVER AREA PAIN;ONE CHEST,ONE BACK PUT ON BEDTIME.REMOVE 12 HIOURS LATER, 09/14/19 11:53:13 EST, Compound Start Date: 09/14/19 Status: Ordered LORazepam 1 mg oral tablet 1 tablet = 1 mg, By Mouth, Daily at bedtime, # 30 tablet, 0 Refills, Maintenance, 10/05/21 16:08:00EST, [facility], 175, cm, 09/23/21 12:36:00 EST, Height, 84.1, kg, 06/07/21 4:26:00 EDT, Dry Weight Start Date: 10/05/21 Status: Ordered magnesium oxide 400 mg oral tablet 1 tablet = 400 mg, By Mouth, Daily, # 90 tablet, 3 Refills, Maintenance, 02/12/21 17:31:00 EDT, Tablet, [facility]/pharmacy #[id number], Partial fill upon patient request if the prescription is for a schedule II opioid drug., 175, cm, 02/06/21 10:40:00 EDT, Height... Start Date: 02/12/21 Status: Ordered melatonin 5 mg oral tablet By Mouth, Daily at bedtime, 0 Refills, Maintenance, 08/08/20 9:44:00 EDT, Tablet Start Date: 08/08/20 Status: Ordered omeprazole 20 mg oral enteric coated capsule 1 capsule, By Mouth, Daily, # 90 capsule, 0 Refills, 09/01/21 11:50:00 EDT, [facility], 175, cm, 08/12/21 15:35:00 EDT, Height, 84.1, kg, 06/07/21 4:26:00 EDT, Dry Weight Start Date: 09/01/21 Status: Ordered predniSONE 50 mg oral tablet 1 tablet = 50 mg, By Mouth, Daily, in am with food, # 3 tablet, 0 Refills, Maintenance, 10/12/21 15:26:00 EST, Tablet, [facility]/pharmacy #[id number], Partial fill upon patient request if the prescription is fora schedule II opioid drug., 175, cm, 10/12/21 14:45... Start Date: 10/12/21 Status: Ordered tamsulosin 0.4 mg oral capsule 1, capsule, By Mouth, Daily at bedtime, # 90 capsule, Refills 1, Tot. Refills 0, Maintenance, 05/08/21 14:24:00 EDT, Route to Pharmacy Electronically, [id number], 175, cm, 04/29/21 10:36:00 EDT,Height, 79, kg, 11/26/20 11:00:00 EST, Dry Weight Start Date: 05/08/21 Status: Ordered thiamine 100 mg oral tablet 100 mg, 1, tablet, By Mouth, Daily, # 30 tablet, Refills 11, Tot. Refills 11, Maintenance, 10/05/2116:07:00 EST, Route to Pharmacy Electronically, [facility], 175, cm, 09/23/21 12:36:00 EST, Height, 84.1, kg, 06/07/21 4:26:00 EDT... Start Date: 10/05/21 Status: Ordered Vitamin D3 2000 intl units oral capsule 1 capsule = 2,000 International_Units, By Mouth, Daily, # 30 capsule, 11 Refills, Maintenance Start Date: 01/25/13 Stop Date: 01/20/14 Status: Ordered Problem List Condition Effective Dates Status Health Status Inform ant Bee sting allergy(Confirmed) 1 Active Memory loss noemal b12,varinder ine tsh(Confirmed) Active Anxiety(Confirmed) Active Aortic valve prosthesis pres [id number] TAVR 2017(Confirmed) 2, 3 Active Arteriosclerotic heart disea se (ASHD) cabg 2002;x1(Confirmed) 4, 5 Active Benign Essential Hypertension(Confirmed) Active Benign essential microscopic hematuria(Confirmed) 6, 7, 8 12/20/08 Active BPH without urinary obstruction(Confirmed) 9 Active Cataract, bilateral(Confirmed) Active Sensory hearing loss, bilateral(Confirmed) Active Cardiac pacemaker(Confirmed) Active Carpal tunnel syndrome(Confirmed) Active Cervical disc disorder(Confirmed) 10 Active Chest wall pain(Confirmed) Active Chronic back pain(Confirmed) 11 Active Chronic diarrhea episodic no rmal IGA TTG 2014(Confirmed) 12, 13, 14 Active Chronic renal disease, stage 3, moderately decreased glomerular filtration rate (GFR) between 30-59 mL/min/1.73 square meter(Confirmed) Active CHF (congestive heart failur e) systolic(Confirmed) Active Alcohol use(Confirmed) Active Encounter for monitoring kris g-term proton pump inhibitor therapy(Confirmed) Active Elevated PSA(Confirmed) 15 Active Impaired mobility and ADLs(Confirmed) Active Foot pain, bilateral(Confirmed) Active GERD EGD 2006y(Confirmed) Active Chronic gout(Confirmed) 08/09/19 Active H/O endarterectomy RT 2009,l eft 2020(Confirmed) Active 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 Active Hx of CABG x 1;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) 16 Active 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) Active Hyperlipidemia NOS(Confirmed) Active Hypomagnesemia(Confirmed) Active Inguinal hernia;left(Confirmed) 12/17/08 Active Insomnia(Confirmed) Active Lactose intolerance(Confirmed) 05/03/21 Active Chronic knee pain(Confirmed) 17 Active LBBB (left bundle branch block)(Confirmed) 18 Active Left carotid artery stenosis ;prior rt cea(Confirmed) Active Left inguinal hernia(Confirmed) Active Localized swelling of left foot(Confirmed) Active Localized, primary osteoarth ritis of the wrist(Confirmed) Active Chronic anticoagulation(Confirmed) Active Spondylosis of lumbar spine( Confirmed) 19, 20, 21 Active Major depression(Confirmed) Active Bladder cancer(Confirmed) 22, 23 Active Mass of left parotid gland [address] 2020 dec(Confirmed) 11/02/21 Active Mild mitral insufficiency(Confirmed) Active Nephrolithiasis(Confirmed) Active Knee osteoarthritis(Confirmed) 24 Active Wrist pain, chronic(Confirmed) 25 Active PAF (paroxysmal atrial fibri llation) [id number] 6(Confirmed) Active 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, 27, 28 Active Restless legs syndrome (RLS)(Confirmed) Active Thrombocytopenia(Confirmed) 29, 30 06/22/09 Active Tricuspid insufficiency(Confirmed) Active Trochanteric bursitis of rig ht hip(Confirmed) Active Type 2 diabetes with nephropathy(Confirmed) Active Type 2 diabetes mellitus wit h peripheral angiopathy(Confirmed) Active 1educated about use epi pen /when call [place] [address] 41 graft 5CABG 2002 6Dr nini addressing 7nephrolithiasis 8to workup 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 12giardiam,o/p ,culture neg 13normal IGA/TTG 14workup 15urology addressing [id number] 17ortho 18chronic 19RFA 20djd xray 2-015 21xray 2004 LS arthritis etc 22BCG 23carcinoma in situ 24saw ortho 25s aw ortho;injected SEVERE pain 26endocrinology addressing 27MRI pti ;refer endo 28mri c spine 2014 29per hematology ? 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
--- OUTSIDE RECORDS SUMMARY | 2023-10-05 09:45 | XMS_ITS | Continuity of Care Document ---
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 Name Role Phone Michael Zafar MD Primary Care Physician Encounter [facility] R [id number] Date(s): 06/28/22 - 07/05/22 [facility] Adult [address] [place] [address]- Encounter Diagnosis Mild major depression(Discharge Diagnosis) - 06/28/22 Attending Physician: Michael Zafar MD Allergies, Adverse Reactions, Alerts Substance Reaction Severity Status lisinopril 1, 2 Active gabapentin unknown Active carvedilol 3 Active citalopram dizzy Active Percocet vomiting Active Effexor dizziness Active Remeron 4 dizziness Active Bee Stings Active Lactose 5, 6 diarrhea Active Percocet 5/325 7 Active FLUoxetine dizziness Active traZODone Active Welchol muscle and joint aches Activ e 1cough 2possible 3blurred vision 4nightmares 5Patient states 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 6patient states he drinks milk all of the time 7Pt states the last time he hade it, 16 years ago, it made him vomit Immunizations Given and Recorded Vaccine Date Status Refusal Reason SARS-CoV-2 mRNA ([id number]) vax 1 04/29/22 Given influenza virus vaccine, inactivated 2 08/12/21 Gi mireya influenza virus vaccine, inactivated 08/06/20 Give n influenza virus vaccine, inactivated 3 07/31/18 Re corded influenza virus vaccine, inactivated 4 06/30/17 Re corded influenza virus vaccine, inactivated 08/26/16 Give n influenza virus vaccine, inactivated 5 08/10/15 Gi mireya influenza virus vaccine, inactivated 08/07/14 Give n influenza virus vaccine, inactivated 07/26/13 Give n influenza virus vaccine, inactivated 11/27/10 Give n SARS-CoV-2 (COVID-19) mRNA BNT-162b2 vac 6 02/08/21 Recorded SARS-CoV-2 (COVID-19) mRNA BNT-162b2 vac 01/18/21 Recorded Influenza Virus Vaccine (oldterm) 08/14/19 Recorde d Influenza Virus Vaccine (oldterm) 7 08/31/06 Given pneumococcal 13-valent vaccine 12/02/14 Given Fluarix (oldterm) 08/23/12 Given Fluarix (oldterm) 08/10/11 Given pneumococcal 23-valent vaccine 01/18/11 Given Tet/Diphth/Acel, Pertussis (oldterm) 12/15/10 Give n Influenza Inactive (IM) (oldterm) 07/25/09 Given Influenza Inactive (IM) (oldterm) 8 08/13/08 Given Influenza Inactive (IM) (oldterm) 09/01/07 Given Zoster Vaccine Live 12/25/08 Given tetanus-diphtheria toxoids (Td) 9 02/03/01 Given Pneumococcal Vaccine (oldterm) 11/07/98 Given 1Result Comment: [facility]-[id number] 2Result Comment: [facility]# [address] [id number] 3Location History: [place] 4Result Comment: [06/30/2017] HIGH DOSE RECIEVED AT [facility] 5Resconstance Comment: [08/12/2015] Received at [facility] 6Result Comment: Pfizer right deltoid lot [id number] exp 06-06-2021 [facility] 7Admin Note: GIVEN IN CLINIC SHAM 8Admin Note: given in clinic 9Admin Note: historical data Medications acetaminophen 325 mg oral tablet 650 mg, By Mouth, Every 4 hours, PRN, Refills 0, Maintenance, Pain , Mild, 11/10/18 15:51:53 EST Start Date: 11/10/18 Status: Ordered allopurinol 100 mg oral tablet 200 mg, 2, tablet, By Mouth, Daily, # 60 tablet, Refills 3, Tot. Refills 3, Maintenance, 06/03/22 11:47:00 EDT, Route to Pharmacy Electronically, [facility], 175, cm, 06/03/22 11:28:00 EDT, Height, 84.1, kg, 08/01/21 4:26:00 EDT,... Start Date: 06/03/22 Status: Ordered amLODIPine 5 mg oral tablet 1 tablet, By Mouth, Daily, # 90 tablet, 1 Refills, [facility], 175, cm, 02/09/22 10:10:00 EDT, Height, 84.1, kg, 06/07/21 4:26:00 EDT, Dry Weight Start Date: 02/12/22 Status: Ordered aspirin 81 mg oral tablet 1 tablet = 81 mg, By Mouth, Daily, # 90 tablet, 3 Refills, 1 tablet By Mouth Daily,x90 days Start Date: 10/26/13 Stop Date: 10/21/14 Status: Ordered atorvastatin 40 mg oral tablet 1 tablet, By Mouth, Daily at bedtime, # 90 tablet, 1 Refills, 05/09/22 6:15:00 EDT, [facility], 175, cm, 04/29/22 10:58:00 EDT, Height, 84.1, kg, 06/07/21 4:26:00 EDT, Dry Weight Start Date: 05/09/22 Status: Ordered Eliquis 2.5 mg oral tablet 1 tablet, By Mouth, 2 times a day, # 180 tablet, 9 Refills, [facility], 175, cm, 02/09/22 10:10:00 EDT, Height, 84.1, kg, 06/07/21 4:26:00 EDT, Dry Weight Start Date: 02/10/22 Status: Ordered LORazepam 1 mg oral tablet 1 tablet = 1 mg, By Mouth, Daily at bedtime, to fill on 07/15, 28 day script from here on out to keep patient on consistent weekday schedule, # 28 tablet, 0 Refills, Maintenance, 06/21/22 22:07:00 EDT, [facility], 175, cm,... Start Date: 06/21/22 Status: Ordered magnesium oxide 400 mg oral tablet 1 tablet, By Mouth, Daily, # 90 tablet, 1 Refills, [facility], 175, cm, 02/09/22 10:10:00 EDT, Height, 84.1, kg, 06/07/21 4:26:00 EDT, Dry Weight Start Date: 02/10/22 Status: Ordered melatonin 5 mg oral tablet By Mouth, Daily at bedtime, 0 Refills, Maintenance, 08/08/20 9:44:00 EDT, Tablet Start Date: 08/08/20 Status: Ordered metoprolol succinate 25 mg oral capsule, extended release 1 capsule = 25 mg, By Mouth, Daily, # 30 capsule, 0 Refills, Maintenance, 05/05/22 0:29:00 EDT, ER Capsule, Partial fill upon patient request if the prescription is for a schedule II opioid drug. Start Date: 05/05/22 Status: Ordered nystatin topical [id number] u/gm powder 1 application, Topically, 2 times a day, # 60 Gm, 5 Refills, Maintenance, 01/14/22 10:20:00 EST, Powder, [facility], Partial fill upon patient request if the prescription is for a schedule II opioid drug., 1 application Topically... Start Date: 01/14/22 Status: Ordered omeprazole 20 mg oral enteric coated capsule 1 capsule, By Mouth, Daily, # 90 capsule, 0 Refills, 05/13/22 12:10:00 EDT, [facility], 175, cm, 05/12/22 13:46:00 EDT, Height, 84.1, kg, 06/07/21 4:26:00 EDT, Dry Weight Start Date: 05/13/22 Status: Ordered sertraline 50 mg oral tablet 1 tablet = 50 mg, By Mouth, Daily, # 90 tablet, 1 Refills, Maintenance, 06/10/22 17:09:00 EDT, Tablet, [facility], Partial fill upon patient request if the prescription is for a schedule II opioid drug., 175, cm, 06/04/22 11:38:00... Start Date: 06/10/22 Status: Ordered tamsulosin 0.4 mg oral capsule 1, capsule, By Mouth, Daily at bedtime, # 90 capsule, Refills 1, Tot. Refills 1, 05/13/22 12:10:00 EDT, Route to Pharmacy Electronically, [facility], 175, cm, 05/12/22 13:46:00 EDT, Height, 84.1, kg, 06/07/21 4:26:00 EDT, Dry Weight Start Date: 05/13/22 Status: Ordered thiamine 100 mg oral tablet 100 mg, 1, tablet, By Mouth, Daily, # 30 tablet, Refills 11, Tot. Refills 11, Maintenance, 10/05/2116:07:00 EST, Route to Pharmacy Electronically, [facility], 175, cm, 09/23/21 12:36:00 EST, Height, 84.1, kg, 06/07/21 4:26:00 EDT... Start Date: 10/05/21 Status: Ordered traZODone 50 mg oral tablet 25 mg, 0.5, tablet, By Mouth, Daily at bedtime, # 15 tablet, Refills 0, Maintenance, 05/05/22 0:29:00 EDT, Partial fill upon patient request if the prescription is for a schedule II opioid drug. Start Date: 05/05/22 Status: Ordered Vitamin D3 2000 intl units oral capsule 1 capsule = 2,000 International_Units, By Mouth, Daily, # 30 capsule, 11 Refills, Maintenance Start Date: 01/25/13 Stop Date: 01/20/14 Status: Ordered Problem List Condition Effective Dates Status Health Status Inform ant Bee sting allergy(Confirmed) 1 Active Memory loss noemal b12,varinder ine tsh(Confirmed) Active Anxiety(Confirmed) Active Aortic valve prosthesis pres [id number] TAVR 2017(Confirmed) 2, 3 Active Arteriosclerotic heart disea se (ASHD) cabg 2002;x1(Confirmed) 4, 5 Active Benign Essential Hypertension(Confirmed) Active Benign essential microscopic hematuria(Confirmed) 6, 7, 8 12/20/08 Active BPH without urinary obstruction(Confirmed) 9 Active Cataract, bilateral(Confirmed) Active Sensory hearing loss, bilateral(Confirmed) Active Cardiac pacemaker(Confirmed) Active Carpal tunnel syndrome(Confirmed) Active Cervical disc disorder(Confirmed) 10 Active Chest wall pain(Confirmed) Active Chronic back pain spine cent er 2021(Confirmed) 11 Active Chronic diarrhea episodic no rmal [...] 08/09/19 Active H/O endarterectomy RT 2009,l eft 2020 DEC(Confirmed) Active 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 Active Hx of CABG x 1;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) 16 Active 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) Active Hyperlipidemia NOS(Confirmed) Active Hypomagnesemia(Confirmed) Active Inguinal hernia;left(Confirmed) 12/17/08 Active Insomnia(Confirmed) Active Lactose intolerance(Confirmed) 05/03/21 Active Chronic knee pain(Confirmed) 17 Active LBBB (left bundle branch block)(Confirmed) 18 Active Left inguinal hernia(Confirmed) Active Localized swelling of left foot(Confirmed) Active Localized, primary osteoarth ritis of the wrist(Confirmed) Active Chronic anticoagulation(Confirmed) Active Spondylosis of lumbar spine( Confirmed) 19, 20, 21 Active Bladder cancer 2010/refuses f/u cyysto 2021 advised re abn cytology(Confirmed) 22, 23 Active Mass of left parotid gland [address] 2020(Confirmed) 11/02/21 Active Mild mitral insufficiency(Confirmed) Active Nephrolithiasis(Confirmed) Active Knee osteoarthritis(Confirmed) 24 Active Wrist pain, chronic(Confirmed) 25 Active PAF (paroxysmal atrial fibri llation) [id number] 6(Confirmed) Active 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 immune referred hematology 2021(Confirmed) 29, 30 06/22/09 Active Tricuspid insufficiency(Confirmed) Active Trochanteric bursitis of rig ht hip(Confirmed) Active Type 2 diabetes with nephropathy(Confirmed) Active Type 2 diabetes mellitus wit h peripheral angiopathy(Confirmed) Active 1educated about use epi pen /when call 2[employer] VALVE [facility] [address]98 41 graft 5CABG 2002 6Dr nini addressing 7nephrolithiasis 8to workup 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 12giardiam,o/p ,culture neg 13normal IGA/TTG 14workup 15urology addressing [id number] 17ortho 18chronic 19RFA 20djd xray 2-015 21xray 2004 LS arthritis etc 22BCG 23carcinoma in situ 24saw ortho 25s aw ortho;injected SEVERE pain 26endocrinology addressing 27MRI pti ;refer endo 28mri c spine 2014 29per hematology ? 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;to follow 30workup in progress Diagnosis Diagnosis Type Effective Dates Health Status Clinical Service Informant Mild major depression Discharge Diagnosis 06/28/22 Social History Social History Type Response Smoking Status Former smoker, quit more than 30 days ago entered on: 03/01/19 Sex Care Team Personnel Name: Charisma LENZ, Michael Boston Address: [address] [place] [address] [place], [place] [address]
--- OUTSIDE RECORDS SUMMARY | 2023-10-05 09:45 | XMS_ITS | Continuity of Care Document ---
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 Date(s): 05/05/21 - 06/04/21 [facility] Adult [address] [place] [address]- Allergies, Adverse Reactions, Alerts Substance Reaction Severity [...] Recorded Vaccine Date Status Refusal Reason SARS-CoV-2 (COVID-19) mRNA BNT-162b2 vac 1 02/08/21 Recorded SARS-CoV-2 (COVID-19) mRNA BNT-162b2 vac 01/18/21 Recorded influenza virus vaccine, inactivated 08/06/20 Give n influenza virus vaccine, inactivated 2 07/31/18 Re corded influenza virus vaccine, inactivated 3 06/30/17 Re corded influenza virus vaccine, inactivated 08/26/16 Give n influenza virus vaccine, inactivated 4 08/10/15 Gi mireya influenza virus vaccine, inactivated 08/07/14 Give n influenza virus vaccine, inactivated 07/26/13 Give n influenza virus vaccine, inactivated 11/27/10 Give n Influenza Virus Vaccine (oldterm) 08/14/19 Recorde d Influenza Virus Vaccine (oldterm) 5 08/31/06 Given pneumococcal 13-valent vaccine 12/02/14 Given Fluarix (oldterm) 08/23/12 Given Fluarix (oldterm) 08/10/11 Given pneumococcal 23-valent vaccine 01/18/11 Given Tet/Diphth/Acel, Pertussis (oldterm) 12/15/10 Give n Influenza Inactive (IM) (oldterm) 07/25/09 Given Influenza Inactive (IM) (oldterm) 6 08/13/08 Given Influenza Inactive (IM) (oldterm) 09/01/07 Given Zoster Vaccine Live 12/25/08 Given tetanus-diphtheria toxoids (Td) 7 02/03/01 Given Pneumococcal Vaccine (oldterm) 11/07/98 Given 1Result Comment: Pfizer right deltoid lot [id number] exp 06-06-2021 [facility] 2Location History: [place] 3Resconstance Comment: [06/30/2017] HIGH DOSE RECIEVED AT [facility] 4Rrenée Comment: [08/12/2015] Received at [facility] [place] 5Admin Note: GIVEN IN CLINIC SHAM 6Admin Note: given in clinic 7Admin Note: historical data Medications acetaminophen 325 mg oral tablet 650 mg, By Mouth, Every 4 hours, PRN, Refills 0, Maintenance, Pain , Mild, 11/10/18 15:51:53 EST Start Date: 11/10/18 Status: Ordered allopurinol 100 mg oral tablet 200 mg, 2, tablet, By Mouth, Daily, # 90 tablet, Refills 3, Tot. Refills 3, Maintenance, 03/25/21 10:33:00 EDT, [id number], cm, 03/20/21 12:09:00 EDT, Height, 79, kg, 11/26/20 11:00:00 EST, Dry Weight Start Date: 03/25/21 Status: Ordered amLODIPine 5 mg oral tablet 5 mg, 1, tablet, By Mouth, Daily, # 90 tablet, Refills 1, Tot. Refills 1, Maintenance, 03/14/21 5:46:00 EDT, Route to Pharmacy Electronically, [id number], 175, cm, 02/06/21 10:40:00 EDT, Height, 79, kg, 11/26/20 11:00:00 EST, Dry Weight Start Date: 03/14/21 Status: Ordered aspirin 81 mg oral tablet 1 tablet = 81 mg, By Mouth, Daily, # 90 tablet, 3 Refills, 1 tablet By Mouth Daily,x90 days Start Date: 10/26/13 Stop Date: 10/21/14 Status: Ordered Eliquis 2.5 mg oral tablet 1 tablet, By Mouth, 2 times a day, # 180 tablet, 3 Refills, Maintenance, 03/17/21 11:43:00 EDT, [id number], [facility], cm, 02/06/21 10:40:00 EDT, Height, 79, kg, 11/26/20 11:00:00 EST, Dry Weight Start Date: 03/17/21 Status: Ordered Lasix 20 mg oral tablet See Instructions, 1 tablet By Mouth as needed for weight gain of 2lbs in a day or 5lbs in a week, #90 tablet, Refills 3, Tot. Refills 3, Maintenance, 12/17/19 11:49:00 EST, Instructions Replace Required Details, [facility] Start Date: 12/17/19 Status: Ordered LIDODERM PATCH LIDODERM PATCH, See Instructions, # 14 patch, Refills 0, Tot. Refills 0, Maintenance, PUT 1 PATCH OVER AREA PAIN;ONE TUEONT CHEST,ONE BACK PUT ON BEDTIME.REMOVE 12 HIOURS LATER, 09/14/19 11:53:13 EST, Compound Start Date: 09/14/19 Status: Ordered Lipitor 40 mg oral tablet 1 tablet = 40 mg, By Mouth, Daily at bedtime, # 90 tablet, 1 Refills, Maintenance, 02/07/21 22:44:00 EDT, Tablet, [id number], Rx resent from 11/03/16., 175, cm, 02/06/21 10:40:00 EDT, Height,79, kg, 11/26/20 11:00:00 EST, Dry Weight Start Date: 02/07/21 Status: Ordered LORazepam 1 mg oral tablet See Instructions, TAKE 1 TABLET BY MOUTH EVERYDAY AT BEDTIME, # 30 tablet, 0 Refills, Maintenance, 05/14/21 14:08:00 EDT, [id number], 175, cm, 04/29/21 10:36:00 EDT, Height, 79, kg, 11/26/20 11:00:00 EST, Dry Weight Start Date: 05/14/21 Status: Ordered LORazepam 1 mg oral tablet 1 tablet = 1 mg, By Mouth, Daily at bedtime, # 30 tablet, 0 Refills, Maintenance, 04/16/21 12:14:00EDT, [id number], 175, cm, 03/20/21 12:09:00 EDT, Height, 79, kg, 11/26/20 11:00:00 EST, DryWeight Start Date: 04/16/21 Status: Ordered magnesium oxide 400 mg oral tablet 1 tablet = 400 mg, By Mouth, Daily, # 90 tablet, 3 Refills, Maintenance, 02/12/21 17:31:00 EDT, Tablet, [id number], Partial fill upon patient request [...] Mouth, Daily, # 90 capsule, 0 Refills, Maintenance, 05/11/21 7:24:00 EDT, [id number], Rx resent from 05/08/21., 175, cm, 04/29/21 10:36:00 EDT, Height, 79, kg, 11/26/20 11:00:00 EST, Dry Weight Start Date: 05/11/21 Status: Ordered tamsulosin 0.4 mg oral capsule 1, capsule, By Mouth, Daily at bedtime, # 90 capsule, Refills 1, Tot. Refills 0, Maintenance, 05/08/21 14:24:00 EDT, Route to Pharmacy Electronically, [id number], 175, cm, 04/29/21 10:36:00 EDT,Height, 79, kg, 11/26/20 11:00:00 EST, Dry Weight Start Date: 05/08/21 Status: Ordered thiamine 100 mg oral tablet 100 mg, 1, tablet, By Mouth, Daily, # 30 tablet, Refills 11, Tot. Refills 11, Maintenance, 09/08/2013:24:00 EST, Route to Pharmacy Electronically, [id number], 175, cm, 09/08/20 12:47:00 EST,Height, 80.6, kg, 08/05/20 17:31:00 EDT, Dry Weight Start Date: 09/08/20 Status: Ordered Vitamin D3 2000 intl units oral capsule 1 capsule = 2,000 International_Units, By Mouth, Daily, # 30 capsule, 11 Refills, Maintenance Start Date: 01/25/13 Stop Date: 01/20/14 Status: Ordered Problem List Condition Effective Dates Status Health Status Inform ant Bee sting allergy(Confirmed) 1 Active Memory loss noemal b12,varinder ine tsh(Confirmed) Active Anxiety(Confirmed) Active Aortic valve prosthesis pres [id number] TAVR 2017(Confirmed) 2, 3 Active Arteriosclerotic heart [...] Hx of CABG x 1;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) 16 Active Hyperlipidemia NOS(Confirmed) Active Hypomagnesemia(Confirmed) Active [...] depression(Confirmed) Active Bladder cancer(Confirmed) 22, 23 Active Mild mitral insufficiency(Confirmed) Active Nephrolithiasis(Confirmed) Active Knee osteoarthritis(Confirmed) 24 Active Wrist pain, chronic(Confirmed) 25 Active PAF (paroxysmal atrial fibri llation) [id number] 6(Confirmed) Active 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, 27, 28 Active Restless legs syndrome (RLS)(Confirmed) Active Thrombocytopenia(Confirmed) 29, 30 06/22/09 Active Tricuspid insufficiency(Confirmed) Active Trochanteric bursitis of rig ht hip(Confirmed) Active Type 2 diabetes with nephropathy(Confirmed) Active Type 2 diabetes mellitus wit h peripheral angiopathy(Confirmed) Active 1educated about use epi pen /when call 2[employer] [employer] [facility] [id number] 41 graft 5CABG 2002 6Dr nini addressing 7nephrolithiasis 8to workup 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 12giardiam,o/p ,culture neg 13normal IGA/TTG 14workup 15urology addressing [id number] 17ortho 18chronic 19RFA 20djd xray 2-015 21xray [...]
--- OUTSIDE RECORDS SUMMARY | 2023-10-05 09:45 | XMS_ITS | Continuity of Care Document ---
Author Name Unknown Organization [facility] Address [address] [place] [address]- Care Team Providers Care Manager Mental Health Name Role Phone Michael Zafar MD Primary Care Physician [phone] [place] [facility] [place]): [place] 04/20/20 [facility] [address] [place] [address]- [facility] Attending Physician: Richard Abel MD Admitting Physician: Richard Abel MD Referring Physician: Michael Zafar MD Allergies, Adverse Reactions, [...] Lucero Comment: [06/30/2017] HIGH DOSE RECIEVED AT [facility] 4Rrenée Comment: [08/12/2015] Received at [facility] [place] 5Admin Note: given in clinic 6Admin Note: [...] 180 tablet, 3 Refills, Maintenance, 03/05/20 13:50:00EDT, [facility]/pharmacy #[id number], 176.5, cm, 12/25/19 15:48:00 EST, Height, [...] Gm, 0 Refills, Maintenance, 10/10/19 11:35:05 EST, Alexander, 1 sprays Nares, Both 2 times a [...] 3 Refills, Maintenance, 12/17/19 11:48:00 EST, Tablet, [facility]/pharmacy #[id number], Rx resent from 11/03/16., 176.5, cm, 12/17/19 11:35:00 EST, Height, 83.4, kg, 11/02/18 13:42:00 EST, Dry Weight Start Date: 12/17/19 Status: Ordered LORazepam 2 mg oral tablet 1 tablet = 2 mg, By Mouth, 2 times a day, # 60 tablet, 0 Refills, Maintenance, 03/05/20 13:50:00 EDT, [facility]/pharmacy #[id number], 176.5, cm, 12/25/19 15:48:00 EST, Height, 83.4, kg, 11/02/18 13:42:00 EST, Dry Weight Start Date: 03/05/20 Status: Ordered metoprolol 25 mg oral tablet, extended release 25 mg, 1, tablet, By Mouth, Daily, # 90 tablet, Refills 3, Tot. Refills 3, Maintenance, 03/21/20 12:01:00 EDT, Route to Pharmacy Electronically, [id number], 176.5, cm, 03/21/20 8:21:00 EDT, Height, 83.4, kg, 11/02/18 13:42:00 EST, Dry Weight Start Date: 03/21/20 Status: Ordered omeprazole 20 mg oral delayed release tablet 1 tablet = 20 mg, By Mouth, Daily, # 90 tablet, 3 Refills, Maintenance, 12/17/19 11:48:00 EST, EC Tablet, [facility]/pharmacy #[id number], 176.5, cm, 12/17/19 11:35:00 EST, Height, 83.4, kg, 11/02/18 13:42:00 EST, Dry Weight Start Date: 12/17/19 Status: Ordered tamsulosin 0.4 mg oral capsule 0.4 mg, By Mouth, Daily at bedtime, # 90 capsule, Refills 3, Tot. Refills 3, Maintenance, 12/17/19 11:48:00 EST, [id number] 176.5, cm, 12/17/19 11:35:00 EST, Height, [...] Active Anxiety(Confirmed) Active Aortic valve prosthesis pres [id number] TAVR 2017(Confirmed) 2, 3 Active Arteriosclerotic heart disea se (ASHD) cabg 2002;x1(Confirmed) 4, 5 Active Benign Essential Hypertension(Confirmed) Active Benign essential microscopic hematuria(Confirmed) 6, 7, 8 12/20/08 Active BPH without urinary obstruction(Confirmed) 9 Active Cataract, bilateral(Confirmed) Active Carpal tunnel syndrome(Confirmed) Active Cervical disc disorder(Confirmed) 10 Active Chest wall pain(Confirmed) Active Chronic back pain(Confirmed) 11 Active Chronic renal disease, stage 3, moderately decreased glomerular filtration rate (GFR) between 30-59 mL/min/1.73 square meter(Confirmed) Active CHF (congestive heart failur e) systolic(Confirmed) Active Encounter for monitoring kris g-term proton pump inhibitor therapy(Confirmed) Active Elevated PSA(Confirmed) 12 Active Foot pain(Confirmed) Active Foot pain, bilateral(Confirmed) Active GERD EGD 2006y(Confirmed) Active Chronic gout(Confirmed) 08/09/19 Active H/O endarterectomy RT 2009(Confirmed) Active 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 Active Hx of CABG x ;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) 13 Active Hyperlipidemia NOS(Confirmed) Active Inguinal hernia;left(Confirmed) 12/17/08 Active Insomnia(Confirmed) Active Chronic knee pain(Confirmed) 14 Active LBBB (left bundle branch block)(Confirmed) 15 Active Left carotid artery stenosis ;prior rt cea(Confirmed) Active Left inguinal hernia(Confirmed) Active Localized, primary osteoarth ritis of the wrist(Confirmed) Active Chronic anticoagulation(Confirmed) Active Spondylosis of lumbar spine( Confirmed) 16, 17, 18 Active Depression, major(Confirmed) 19 Active Major depression(Confirmed) Active Bladder cancer(Confirmed) 20, 21 Active Mild mitral insufficiency(Confirmed) Active Nephrolithiasis(Confirmed) Active Knee osteoarthritis(Confirmed) 22 Active Wrist pain, chronic(Confirmed) 23 Active PAF (paroxysmal atrial fibri llation) [id number] 6(Confirmed) Active Pituitary microadenoma(Confi rmed) 24, 25, 26 Active Restless legs syndrome (RLS)(Confirmed) Active Thrombocytopenia(Confirmed) 27, 28 06/22/09 Active Tricuspid insufficiency(Confirmed) Active Trochanteric bursitis of rig ht hip(Confirmed) Active Type 2 diabetes with nephropathy(Confirmed) Active Type 2 diabetes mellitus wit h peripheral angiopathy(Confirmed) Active 1educated about use epi pen /when call 2CARPENTIER PERICARDIAL VALVE [facility] [id number] 41 graft 5CABG 2002 6Dr nini addressing 7nephrolithiasis 8to workup 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 12urology addressing [id number] 14ortho 15chronic 16RFA 17djd xray 2-015 18xray 2005 LS arthritis etc 19Zung=mod depression 20BCG 21carcinoma in situ 22saw ortho 23s aw ortho;injected SEVERE pain 24endocrinology addressing 25MRI pti ;refer endo 26mri c spine 2014 27per hematology ? 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;to follow 28workup in progress Social History Social History Type Response Smoking Status Former smoker, quit more than 30 days ago entered on: 03/01/19 Sex
--- OUTSIDE RECORDS SUMMARY | 2023-10-05 09:45 | XMS_ITS | Continuity of Care Document ---
Author Name Unknown Organization [facility] Address [address] [place] [id number]- Care Team Providers Care Stock Preparer Name Role Phone Michael Zafar MD Primary Care Physician Encounter [facility] [place] Date(s): 08/13/19 - 11/14/19 [facility] [address] [place] [address]- [facility] Attending Physician: Migel BROWN, Beryl Bolden Admitting Physician: Beryl Lainez NP Referring Physician: Michael Zafar MD Allergies, Adverse [...] Lucero Comment: [06/30/2017] HIGH DOSE RECIEVED AT [facility] 4Rrenée Comment: [08/12/2015] [place] [facility] [place]Admin Note: given in clinic 6Admin Note: [...] 11:08:47 EST Start Date: 11/12/18 Status: Ordered aspirin 81 mg oral tablet 1 tablet = 81 mg, By Mouth, Daily, # 90 tablet, 3 Refills, 1 tablet By Mouth Daily,x90 days Start Date: 10/26/13 Stop Date: 10/21/14 Status: Ordered Flonase 50 mcg/inh nasal spray 1 sprays, Nares, Both, 2 times a day, # 16 Gm, 0 Refills, Maintenance, 10/10/19 11:35:05 EST, [place], 1 sprays Nares, Both 2 times a day, 176.5, cm, 10/10/19 11:18:43 EST, Height, 83.4, kg, 11/02/18 13:42:46 EST, Dry Weight Start Date: 10/10/19 Status: Ordered Lasix 20 mg oral tablet See Instructions, 1 tablet By Mouth as needed for weight gain of 2lbs in a day or 5lbs in a week, #90 tablet, Refills 3, Tot. Refills 3, Maintenance, 11/05/19 12:56:00 EST, Instructions Replace Required Details, Route to Pharmacy Electronically, [facility]/... Start Date: 11/05/19 Status: Ordered LIDODERM PATCH LIDODERM PATCH, See Instructions, # 14 patch, Refills 0, Tot. Refills 0, Maintenance, PUT 1 PATCH OVER AREA PAIN;ONE FRIONT CHEST,ONE BACK PUT ON BEDTIME.REMOVE 12 HIOURS LATER, 09/14/19 11:53:13 EST, Compound Start Date: 09/14/19 Status: Ordered Lipitor 40 mg oral tablet 1 tablet = 40 mg, By Mouth, Daily at bedtime, # 90 tablet, 3 Refills, Maintenance, Tablet, Route toPharmacy Electronically, [id number], [id number], Rx resent from 11/03/16. Start Date: 12/28/18 Status: Ordered LORazepam 2 mg oral tablet 1 tablet = 2 mg, By Mouth, 2 times a day, # 60 tablet, 5 Refills, Maintenance, 04/18/19 15:23:18 EDT Start Date: 04/18/19 Status: Ordered metoprolol 25 mg oral tablet 25 mg, 1, tablet, By Mouth, Daily, # 90 tablet, Refills 3, Tot. Refills 3, Maintenance, 11/05/19 12:58:00 EST, Route to Pharmacy Electronically, [facility]/pharmacy #[id number], 176.5, cm, 10/23/19 15:57:00 EST, Height, 83.4, kg, 11/02/18 13:42:00 EST, Dry Weight Start Date: 11/05/19 Stop Date: 10/30/20 Status: Ordered omeprazole 20 mg oral delayed release tablet 1 tablet = 20 mg, By Mouth, Daily, # 90 tablet, 3 Refills, Maintenance, 12/28/18 10:46:26 EST, EC Tablet Start Date: 12/28/18 Status: Ordered predniSONE 20 mg oral tablet 1 tablet = 20 mg, By Mouth, 2 times a day, with food or milk, # 10 tablet, 0 Refills, Maintenance, 09/20/19 12:12:26 EST, Tablet Start Date: 09/20/19 Status: Ordered tamsulosin 0.4 mg oral capsule 0.4 mg, By Mouth, Daily at bedtime, # 90 Doses, Refills 3, Tot. Refills 3, Maintenance, 12/28/18 10:45:55 EST, Route to Pharmacy Electronically, [id number] Start Date: 12/28/18 Status: Ordered Tums 500 mg oral tablet, [...] Active Anxiety(Confirmed) Active Aortic valve prosthesis pres [id number] TAVR 2017(Confirmed) 2, 3 Active Arteriosclerotic heart [...] CHF (congestive heart failur e) systolic(Confirmed) Active Systolic CHF(Confirmed) Active Depression(Confirmed) 12 Active DM (diabetes mellitus), type 2 with peripheral vascular complications(Confirmed) 13 Active Encounter for monitoring kris g-term proton pump inhibitor therapy(Confirmed) Active Elevated PSA(Confirmed) 14 Active Foot pain(Confirmed) Active GERD EGD 2006y(Confirmed) Active Acute gout(Confirmed) 08/09/19 Active H/O endarterectomy RT 2009(Confirmed) Active 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 Active Hx of CABG x ;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) 15 Active Hyperlipidemia NOS(Confirmed) Active Inguinal hernia;left(Confirmed) 12/17/08 Active Insomnia(Confirmed) Active Chronic knee pain(Confirmed) 16 Active LBBB (left bundle branch block)(Confirmed) 17 Active Left carotid artery stenosis ;prior rt cea(Confirmed) Active Left inguinal hernia(Confirmed) Active Localized, primary osteoarth ritis of the wrist(Confirmed) Active Spondylosis of lumbar spine( Confirmed) 18, 19, 20 Active Bladder cancer(Confirmed) 21, 22 Active Mild mitral insufficiency(Confirmed) Active Nephrolithiasis(Confirmed) Active Knee osteoarthritis(Confirmed) 23 Active Wrist pain, chronic(Confirmed) 24 Active PAOD (peripheral arterial oc clusive disease)(Confirmed) 25 Active PAF (paroxysmal atrial fibri llation) [id number] 6(Confirmed) Active 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, 27, 28 Active Restless legs syndrome (RLS)(Confirmed) Active Thrombocytopenia(Confirmed) 29, 30 06/22/09 Active Tricuspid insufficiency(Confirmed) Active Trochanteric bursitis of rig ht hip(Confirmed) Active Type 2 diabetes with nephropathy(Confirmed) Active Type 2 diabetes mellitus wit h peripheral angiopathy(Confirmed) Active Active 1educated about use epi pen /when call 2[employer] PERICARDIAL VALVE [facility] [id number] 41 graft 5CABG 2002 6Dr nini addressing 7nephrolithiasis 8to workup 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
--- OUTSIDE RECORDS SUMMARY | 2023-10-05 09:46 | XMS_ITS | Continuity of Care Document ---
Author Name Unknown Organization [facility] Address [address] [place] [address]- Care Team Providers Care Morgue Librarian Name Role Phone Ju WEATHER FORECASTER, Giovana Chiu Primary Care Physician Encounter [facility] [place] Date(s): 09/07/22 - 01/05/23 [facility] [address] [place] [id number]- Attending Physician: Jeremiah Dugan MD Admitting Physician: Jeremiah Dugan MD Referring Physician: Michael Zafar MD Allergies, Adverse Reactions, Alerts Substance Reaction Severity Status lisinopril 1, 2 Active Welchol muscle and joint aches Activ e carvedilol 3 Active citalopram dizzy Active Percocet vomiting Active Effexor dizziness Active Remeron 4 dizziness Active Bee Stings Active Percocet 5/325 5 Active Lactose 6, 7 diarrhea Active FLUoxetine dizziness Active traZODone Active 1cough 2possible 3blurred vision 4nightmares 5Pt states the last time he hade it, 16 years ago, it made him vomit 6Patient states 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 4Resconstance Comment: [08/12/2015] Received at [facility] [place] 5Result Comment: [facility]-[id number] 6Result Comment: Pfizer right deltoid lot [id number] exp 06-06-2021 [facility] 7Admin Note: GIVEN IN CLINIC SHAM 8Admin Note: given in clinic 9Admin Note: historical data Medications acetaminophen 500 mg oral tablet 2 tablet = 1,000 mg, By Mouth, Every 8 hours, PRN as needed for fever, 0 Refills, Maintenance, 12/02/22 11:43:00 EST, Tablet Start Date: 12/02/22 Status: Ordered allopurinol 100 mg oral tablet 2, tablet, By Mouth, Daily, # 60 tablet, Refills 5, Maintenance, 09/05/22 12:57:00 EDT, Route to Pharmacy Electronically, [facility], 175, cm, 07/22/22 14:43:00 EDT, Height, 84.1, kg, 06/07/21 4:26:00 EDT, Dry Weight Start Date: 09/05/22 Status: Ordered amLODIPine 5 mg oral tablet 1 tablet, By Mouth, Daily, # 90 tablet, 1 Refills, Maintenance, 08/07/22 10:52:00 EDT, [facility], 175, cm, 07/22/22 14:43:00 EDT, Height, 84.1, kg, 06/07/21 4:26:00 EDT, Dry Weight Start Date: 08/07/22 Status: Ordered aspirin 81 mg oral tablet 1 tablet = 81 mg, By Mouth, Daily, # 90 tablet, 3 Refills, 1 tablet By Mouth Daily,x90 days Start Date: 10/26/13 Stop Date: 10/21/14 Status: Ordered atorvastatin 40 mg oral tablet 1 tablet, By Mouth, Daily at bedtime, # 90 tablet, 1 Refills, 11/24/22 14:41:00 EST, [facility], 175, cm, 09/29/22 12:43:00 EST, Height, 84.1, kg, 06/07/21 4:26:00 EDT, Dry Weight Start Date: 11/24/22 Status: Ordered Eliquis 2.5 mg oral tablet 1 tablet, By Mouth, 2 times a day, # 180 tablet, 9 Refills, [facility], 175, cm, 02/09/22 10:10:00 EDT, Height, 84.1, kg, 06/07/21 4:26:00 EDT, Dry Weight Start Date: 02/10/22 Status: Ordered LORazepam 1 mg oral tablet 1 tablet = 1 mg, By Mouth, Daily at bedtime, 11/09 - 01/07/2312/10 delivery Tuesday02/04/23, start taking02/06/2301/07 - 03/08/23, # 30 tablet, 2 Refills, Maintenance, 11/24/22 14:36:00 EST, [facility], 175, cm, 09/29/22 12:43:00 EST... Start Date: 11/24/22 Status: Ordered magnesium oxide 400 mg oral tablet 1 tablet, By Mouth, Daily, # 90 tablet, 11 Refills, Maintenance, 08/09/22 9:27:00 EDT, [facility], 175, cm, 07/22/22 14:43:00 EDT, Height, 84.1, kg, 06/07/21 4:26:00 EDT, Dry Weight Start Date: 08/09/22 Status: Ordered MethylPREDNISolone Dose Pack 4 mg oral tablet 0 Refills, Maintenance, 12/17/22 13:11:00 EST, Partial fill upon patient request if the prescription is for a schedule II opioid drug. Start Date: 12/17/22 Status: Ordered nystatin topical [id number] u/gm powder 1 application, Topically, 2 times a day, # 60 Gm, 5 Refills, Maintenance, 01/14/22 10:20:00 EST, Powder, [facility], Partial fill upon patient request if the prescription is for a schedule II opioid drug., 1 application Topically... Start Date: 01/14/22 Status: Ordered omeprazole 20 mg oral enteric coated capsule 1 capsule, By Mouth, Daily, # 90 capsule, 0 Refills, Maintenance, 11/24/22 14:41:00 EST, [facility], 175, cm, 09/29/22 12:43:00 EST, Height, 84.1, kg, 06/07/21 4:26:00 EDT, Dry Weight Start Date: 11/24/22 Status: Ordered sulfamethoxazole-trimethoprim 800 mg-160 mg oral tablet 1 tablet, By Mouth, 2 times a day, 0 Refills, Maintenance, 12/17/22 13:11:00 EST, Tablet, Partial fill upon patient request if the prescription is for a schedule II opioid drug. Start Date: 12/17/22 Status: Ordered tamsulosin 0.4 mg oral capsule 1, capsule, By Mouth, Daily at bedtime, # 90 capsule, Refills 1, Tot. Refills 1, 11/24/22 14:41:00 EST, Route to Pharmacy Electronically, [facility], 175, cm, 09/29/22 12:43:00 EST, Height, 84.1, kg, 06/07/21 4:26:00 EDT, Dry Weight Start Date: 11/24/22 Status: Ordered Vitamin B1 100 mg oral tablet 1, tablet, By Mouth, Daily, # 30 tablet, Refills 11, Maintenance, 08/09/22 9:27:00 EDT, Route to Pharmacy Electronically, [facility], 175, cm, 07/22/22 14:43:00 EDT, Height, 84.1, kg, 06/07/21 4:26:00 EDT, Dry Weight Start Date: 08/09/22 Status: Ordered Vitamin D3 2000 intl units oral capsule 1 capsule = 2,000 International_Units, By Mouth, Daily, # 30 capsule, 11 Refills, Maintenance Start Date: 01/25/13 Stop Date: 01/20/14 Status: Ordered Problem List Condition Confirmation Course Effective Dates Status H ealth Status Informant Bee sting allergy 1 Confirmed Active Memory loss noemal b12,thiamine tsh Confirmed Active Anxiety Confirmed Active Aortic valve prosthesis [id number] TAVR 2017 2, 3 Confirmed Active Arteriosclerotic heart disease (ASHD) cabg 2002;x1 4, 5 Confirmed Active Benign Essential Hypertension Confirmed Active Benign essential microscopic hematuria 6, 7, 8 Confirmed 12/20/08 Active BPH without urinary obstruction 9 Confirmed Active Sensory hearing loss, bilateral Confirmed Active Cardiac pacemaker Confirmed Active Carpal tunnel syndrome Confirmed Active Cervical disc disorder 10 Confirmed Active Chronic back pain spine center 2021 11 Confirmed Active Chronic diarrhea episodic normal IGA TTG 2014 12, 13, 14 Confirmed Active 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 Active Elevated PSA 15 Confirmed Active Impaired mobility and ADLs Confirmed Active GERD EGD 2006y Confirmed Active Chronic gout Confirmed 08/09/19 Active H/O endarterectomy RT 2009,left 2020 DEC Confirmed Active Hearing loss refer eval SEPT 2021 Confirmed Active S/P TAVR (transcatheter aortic valve replacement) Confirmed 11/09/18 Active Hx of CABG x 1;2002 16 Confirmed Active History of lacunar cerebrovascular accident MRI 2020 Confirmed Active Hyperlipidemia NOS Confirmed Active Hypomagnesemia Confirmed Active Inguinal hernia;left Confirmed 12/17/08 Active Insomnia Confirmed Active Lactose intolerance Confirmed 05/03/21 Active Chronic knee pain 17 Confirmed Active LBBB (left bundle branch block) 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 Active Left inguinal hernia Confirmed Active Chronic anticoagulation Confirmed Active Spondylosis of lumbar spine 19, 20, 21 Confirmed Active Bladder cancer 2010/refuses f/u cyysto 2021 advised re abn cytology , 23 Confirmed Active Mass of left parotid gland 1.[address] 2020 dec Confirmed 11/02/21 Active Mild mitral insufficiency Confirmed Active Nephrolithiasis Confirmed Active Knee osteoarthritis 24 Confirmed Active Wrist pain, chronic 25 Confirmed Active Breast pain, left refer breast center Confirmed 07/22/22 Active PAF (paroxysmal atrial fibrillation) [id number] 6 Confirmed Active Pituitary microadenoma 26, 27, 28 Confirmed Active Restless legs syndrome (RLS) Confirmed Active Thrombocytopenia hematology 2008 ? immune referred hematology 2021 29, 30 Confirmed 06/22/09 Active Tricuspid insufficiency Confirmed Active Trochanteric bursitis of right hip Confirmed Active Type 2 diabetes with nephropathy Confirmed Active Type 2 diabetes mellitus with peripheral angiopathy Confirmed Active 1educated about use epi pen /when call 2[employer]ENTIER PERICARDIAL VALVE [facility] 10745 41 graft 5CABG 2002 6Dr nini addressing 7nephrolithiasis 8to workup 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 12giardiam,o/p ,culture neg 13normal IGA/TTG 14workup 15urology addressing [id number] 17ortho 18chronic 19RFA 20djd xray 2-015 21xray [...] 30 days ago entered on: 03/01/19 Sex Patient Care team information Care Team Personnel Name: Raina Westbrook RN Position: S RN Member Role: Primary Care Nurse Name: Giovana Dodd NP Position: [facility] PCO Associate Professional Member Role: PCP Address: Address: [address] [place] [phone]- [place] Name: Adam Dennis MD Position: [facility] Cardiology MD Member Role: Lifetime Consulting Physician Address: Address: [address] [place] [address] [address] [place] [phone]- [place] Name: Julia Yu RN Position: S RN Member Role: Primary Care Nurse Name: Jo Dillon RN Position: S RN Member Role: Primary Care Nurse Name: Anh Pires RN Position: S RN Member Role: Primary Care Nurse Name: Lonnie Puente Position: S RN Member Role: Primary Care Nurse Name: Jaqueline Johnson RN Position: S RN Member Role: Primary Care Nurse Name: Kathy Garcia RN Position: S RN Member Role: Primary Care Nurse Name: Viki Collazo RN Position: [facility] RN Member Role: Primary Care Nurse Care Team Related Persons Name: FLORENCE SARWAT Address: [address] [place] [address] Name: JOSEFINA CONTRERAS Address: home [address] [facility] [place] [address]
--- OUTSIDE RECORDS SUMMARY | 2023-10-05 09:46 | XMS_ITS | Continuity of Care Document ---
Author Name Unknown Organization [facility] Anders Bradley Tom lt Address [address] [place] [address]- Care Team Providers Care It Technical Support Specialist Name Role Phone Leo Breen DO Primary Care Physician Encounter [facility] [place] Date(s): 06/13/23 - 06/20/23 [facility] Adult [address] [place] [address]- Encounter Diagnosis PAF (paroxysmal atrial fibrillation) [id number](Discharge Diagnosis) - 06/13/23 Anxiety(Discharge Diagnosis) - 06/13/23 BPH (benign prostatic hyperplasia)(Discharge Diagnosis) - 06/13/23 Cardiac pacemaker(Discharge Diagnosis) - 06/13/23 Benign Essential Hypertension(Discharge Diagnosis) - 06/13/23 Bladder cancer 2010/refuses f/u cyysto 2021 advised re abn cytology(Discharge Diagnosis) - 06/13/23 Chronic anticoagulation(Discharge Diagnosis) - 06/13/23 Chronic back pain spine center 2021(Discharge Diagnosis) - 06/13/23 GERD(Discharge Diagnosis) - 06/13/23 History of lacunar cerebrovascular accident MRI 2020(Discharge Diagnosis) - 06/13/23 Hx of CABG x 1;2002(Discharge Diagnosis) - 06/13/23 Pituitary microadenoma(Discharge Diagnosis) - 06/13/23 Memory loss noemal b12,thiamine tsh(Discharge Diagnosis) - 06/13/23 Mild major depression, single episode(Discharge Diagnosis) - 06/13/23 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(Discharge Diagnosis) - 06/13/23 Type 2 diabetes mellitus with peripheral angiopathy(Discharge Diagnosis) - 06/13/23 Type 2 diabetes with nephropathy(Discharge Diagnosis) - 06/13/23 Attending Physician: Leo Breen DO Allergies, Adverse Reactions, Alerts Substance Reaction Severity Status lisinopril 1, 2 Active carvedilol 3 Active citalopram dizzy Active Percocet vomiting Active Effexor dizziness Active Remeron 4 dizziness Active Bee Stings Active Lactose 5, 6 diarrhea Active Percocet 5/325 7 Active Welchol muscle and joint aches Activ e FLUoxetine dizziness Active traZODone Active 1cough 2possible 3blurred vision 4nightmares 5Patient states 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 6patient states he drinks milk all of the time 7Pt states the last time he hade it, 16 years ago, it made him vomit Immunizations Given and Recorded Vaccine Date Status Refusal Reason pneumococcal 20-valent conjugate vaccine 1 03/16/23 Given influenza virus vaccine, inactivated 08/24/22 Anton rded influenza virus vaccine, inactivated 2 08/12/21 Gi [...] vaccine, inactivated 11/27/10 Give n SARS-CoV-2 mRNA ([id number]) vax 6 04/29/22 Given SARS-CoV-2 (COVID-19) mRNA BNT-162b2 vac 7 02/08/21 Recorded SARS-CoV-2 (COVID-19) mRNA BNT-162b2 vac 01/18/21 Recorded Influenza Virus Vaccine (oldterm) 08/14/19 Recorde d Influenza Virus Vaccine (oldterm) 8 08/31/06 Given pneumococcal 13-valent vaccine 12/02/14 Given Fluarix (oldterm) 08/23/12 Given Fluarix (oldterm) 08/10/11 Given pneumococcal 23-valent vaccine 01/18/11 Given Tet/Diphth/Acel, Pertussis (oldterm) 12/15/10 Give n Influenza Inactive (IM) (oldterm) 07/25/09 Given Influenza Inactive (IM) (oldterm) 9 08/13/08 Given Influenza Inactive (IM) (oldterm) 09/01/07 Given Zoster Vaccine Live 12/25/08 Given tetanus-diphtheria toxoids (Td) 10 02/03/01 Given Pneumococcal Vaccine (oldterm) 11/07/98 Given 1Result Comment: [id number] 2Result Comment: [facility]# [address] [id number] 3Location History: [place] 4Result Comment: [06/30/2017] [facility] 5Result Comment: [08/12/2015] [place] [facility] [place] Comment[place] [facility]-[id number] 7Result Comment: Pfizer right deltoid lot [id number] exp 06-06-2021 [facility] 8Admin Note: GIVEN IN CLINIC SHAM 9Admin Note: given in clinic 10Admin Note: historical data Medications acetaminophen 500 mg oral tablet 2 tablet = 1,000 mg, By Mouth, Every 8 hours, PRN as needed for fever, 0 Refills, Maintenance, 12/02/22 11:43:00 EST, Tablet Start Date: 12/02/22 Status: Ordered allopurinol 100 mg oral tablet 2, tablet, By Mouth, Daily, # 60 tablet, Refills 5, Tot. Refills 5, Maintenance, 04/07/23 14:29:00 EDT, Route to Pharmacy Electronically, [facility], 175, cm, 03/16/23 12:17:00 EDT, Height, 84.1, kg, 06/07/21 4:26:00 EDT, Dry Weight Start Date: 04/07/23 Status: Ordered amLODIPine 5 mg oral tablet 1 tablet, By Mouth, Daily, # 90 tablet, 1 Refills, Maintenance, 08/07/22 10:52:00 EDT, [facility], 175, cm, 07/22/22 14:43:00 EDT, [...] bedtime, # 90 tablet, 1 Refills, Maintenance, 05/13/23 10:04:00 EDT, [facility], 175, cm, 04/12/23 11:54:00 EDT, Height, 84.1, kg, 06/07/21 4:26:00 EDT, Dry Weight Start Date: 05/13/23 Status: Ordered Eliquis 2.5 mg oral tablet 1 tablet, By Mouth, 2 times a day, # 180 tablet, 9 Refills, 02/18/23 17:26:00 EDT, [facility], 175, cm, 01/24/23 11:05:00 EDT, Height, 84.1, kg, 06/07/21 4:26:00 EDT, Dry Weight Start Date: 02/18/23 Status: Ordered finasteride 5 mg oral tablet 0 Refills, Maintenance, 06/13/23 12:58:00 EDT, Partial fill upon patient request if the prescription is for a schedule II opioid drug. Start Date: 06/13/23 Status: Ordered furosemide 20 mg oral tablet See Instructions, TAKE 1 TABLET BY MOUTH EVERY DAY, # 30 tablet, Refills 2, Tot. Refills 2, Maintenance, 06/17/23 11:05:00 EDT, Instructions Replace Required Details, Route to Pharmacy Electronically, [facility], 175, cm, 06/13/23... Start Date: 06/17/23 Status: Ordered LORazepam 0.5 mg oral tablet See Instructions, take as directed altrating with 1mg dose, # 12 each, 1 Refills, Maintenance, 06/13/23 13:29:00 EDT, Tablet, [facility], starting to wean down Partial fill upon patient request if the prescription is for a schedul... Start Date: 06/13/23 Status: Ordered LORazepam 1 mg oral tablet 1 tablet = 1 mg, By Mouth, Daily at bedtime, PRN as needed for anxiety, taper as directed, # 30 tablet, 1 Refills, Maintenance, 06/16/23 8:19:00 EDT, [facility], 175, cm, 06/13/2313:20:00 EDT, Height Start Date: 06/16/23 Status: Ordered magnesium oxide 400 mg oral tablet 1 tablet, By Mouth, Daily, # 90 tablet, 11 Refills, Maintenance, 08/09/22 9:27:00 EDT, [facility], 175, cm, 07/22/22 14:43:00 EDT, Height, 84.1, kg, 06/07/21 4:26:00 EDT, Dry Weight Start Date: 08/09/22 Status: Ordered nystatin topical 041073 u/gm powder 1 application, Topically, 2 times a day, # 60 Gm, 1 Refills, Maintenance, 04/08/23 10:05:00 EDT, Powder, [facility], 1 application Topically 2 times a day, 175, cm, 03/16/23 12:17:00 EDT, Height, 84.1, kg, 06/07/21 4:26:00 EDT, . Start Date: 04/08/23 Status: Ordered omeprazole 20 mg oral enteric coated capsule 1 capsule, By Mouth, Daily, # 90 capsule, 1 Refills, Maintenance, 06/13/23 13:22:00 EDT, [facility], 175, cm, 06/13/23 13:20:00 EDT, Height Start Date: 06/13/23 Status: Ordered tamsulosin 0.4 mg oral capsule 1, capsule, By Mouth, Daily at bedtime, # 90 capsule, Refills 1, Maintenance, 05/13/23 10:04:00 EDT, Route to Pharmacy Electronically, [facility], 175, cm, 04/12/23 11:54:00 EDT,Height, 84.1, kg, 06/07/21 4:26:00 EDT, Dry Weight Start Date: 05/13/23 Status: Ordered Vitamin B1 100 mg oral tablet 1, tablet, By Mouth, Daily, # 30 tablet, Refills 11, Maintenance, 08/09/22 9:27:00 EDT, Route to Pharmacy Electronically, [facility], 175, cm, 07/22/22 14:43:00 EDT, Height, 84.1, kg, 06/07/21 4:26:00 EDT, Dry Weight Start Date: 08/09/22 Status: Ordered Vitamin D3 2000 intl units oral capsule 1 capsule = 2,000 International_Units, By Mouth, Daily, # 30 capsule, 11 Refills, Maintenance Start Date: 01/25/13 Stop Date: 01/20/14 Status: Ordered Problem List Condition Confirmation Course Effective Dates Status H ealth Status Informant Memory loss noemal b12,thiamine tsh Confirmed Active Anxiety Confirmed Active Aortic valve prosthesis [id number] TAVR 2017 1, 2 Confirmed Active Arteriosclerotic heart disease (ASHD) cabg 2002;x1 3, 4 Confirmed Active Benign Essential Hypertension Confirmed Active Benign essential microscopic hematuria 5, 6, 7 Confirmed 12/20/08 Active BPH (benign prostatic hyperplasia) 8 Confirmed Active Sensory hearing loss, bilateral Confirmed Active Cardiac pacemaker Confirmed Active Carpal tunnel syndrome Confirmed Active Cervical disc disorder 9 Confirmed Active Chronic back pain spine center 2021 10 Confirmed Active Chronic diarrhea episodic normal IGA TTG 2014 11, 12, 13 Confirmed Active GERD Confirmed Active Chronic gout Confirmed 08/09/19 Active H/O endarterectomy RT 2009,left 2020 DEC Confirmed Active S/P TAVR (transcatheter aortic valve replacement) Confirmed 11/09/18 Active Hx of CABG x ;2002 14 Confirmed Active History of lacunar cerebrovascular accident MRI 2020 Confirmed Active Hyperlipidemia Confirmed Active Hypomagnesemia Confirmed Active Insomnia Confirmed Active LBBB (left bundle branch block) 15 Confirmed Active Left inguinal hernia Confirmed Active Chronic anticoagulation Confirmed Active 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, 17, 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 Active Bladder cancer 2010/refuses f/u cyysto 2021 advised re abn cytology 19, 20 Confirmed Active Mass of left parotid gland 1.[address] 2020 dec Confirmed 11/02/21 Active Mild major depression, single episode 21 Confirmed Active Mild mitral insufficiency Confirmed Active Nephrolithiasis Confirmed Active Knee osteoarthritis 22 Confirmed Active Breast pain, left refer breast center Confirmed 07/22/22 Active PAF (paroxysmal atrial fibrillation) [id number] Confirmed Active 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 11giardiam,o/p ,culture neg 12normal IGA/TTG 13workup [id number] 15chronic 16RFA 17djd xray 2-015 18xray 2004 LS arthritis etc 19BCG 20carcinoma in situ 21Per Dr. Zafar 07/22/22. 22saw ortho 23endocrinology addressing 24MRI pti ;refer endo 25mri c spine 2014 26per hematology ? 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;to follow 27workup in progress Diagnosis Diagnosis Type Effective Dates Health Status Clinical Service Informant Benign Essential Hypertension Discharge Diagnosis 06/13/23 Bladder cancer 2010/refuses f/u cyysto 2021 advised re abn cytology Discharge Diagnosis 06/13/23 Chronic anticoagulation Discharge Diagnosis 06/13/23 Chronic back pain spine center 2021 Discharge Diagnosis 06/13/23 GERD Discharge Diagnosis 06/13/23 History of lacunar cerebrovascular accident MRI 2020 Discharge Diagnosis 06/13/23 Hx of CABG x 1;2002 Discharge Diagnosis 06/13/23 Pituitary microadenoma Discharge Diagnosis 06/13/23 Memory loss noemal b12,thiamine tsh Discharge Diagnosis 06/13/23 Mild major depression, single episode Discharge Diagnosis 06/13/23 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 Discharge Diagnosis 06/13/23 Type 2 diabetes mellitus with peripheral angiopathy Discharge Diagnosis 06/13/23 Type 2 diabetes with nephropathy Discharge Diagnosis 06/13/23 PAF (paroxysmal atrial fibrillation) [id number] 6 Discharge Diagnosis 06/13/23 Anxiety Discharge Diagnosis 06/13/23 BPH (benign prostatic hyperplasia) Discharge Diagnosis 06/13/23 Cardiac pacemaker Discharge Diagnosis 06/13/23 Vital Signs Most recent to oldest [Reference Range]: 1 2 3 Height 175 cm (06/13/23 1:20 PM) 175 cm (06/13/23 1:04 PM) 175 cm (06/13/23 12:59 PM) Weight 87.1 kg (06/13/23 12:59 PM) Oxygen Saturation [94-100 %] 93 % *L* (06/13/23 12:59 PM) Pulse Rate [55-90 bpm] 78 bpm (06/13/23 12:59 PM) Body Mass Index [18.5-24.99 kg/m2] 28.44 kg/m2 *H* (06/13/23 12:59 PM) Blood Pressure [90-138/55-84 mm Hg] 130/64mm Hg (06/13/23 1:20 PM) 145/85mm Hg *H* (06/13/23 1:04 PM) 154/81mm Hg *H* (06/13/23 12:59 PM) Temperature [96.8-100.4 DegF] 97.7 DegF (06/13/23 12:59 PM) Blood pressure sites Arm, right (06/13/23 1:20 PM) Arm, left (06/13/23 1:04 PM) Arm, left (06/13/23 12:59 PM) Social History Social History Type Response Smoking Status Former smoker, quit more than 30 days ago; Type: Cigarettes; Type: Cigars entered on: 01/24/23 Sex Note * Deb Brito: PERFORM, SIGN, VERIFY Event Display: Patient Education/Instruction Authored Date: [id number] [facility] *BMP So Kirk Newman Clinical Summary Name SHADI SWAN Age 88 Years 1935 PCP Leo Breen DO PCP Visit Date 06/13/2023 12:46:00 Patient Instructions Continue current medications. and??Diet BP at goal continue current plan check BP at home and bring to next visit Follow up with Dr Abel recommend slowly weaning off lorazepam over several months start with taking 0.5mg on Tuesday and 1mg for the rest of the week for 2 weeks then decrease to 0.5mg on Tuesday and for 2 weeks then decrease to o.5mg on Tuesday and Tuesday and 1mg the rest of the week continue uitl next appt Additional Instructions: Scheduled Appointments?? Future Appointments ?*[facility]??Cardiology1 ?Phone:??--?Fax:??-- ?Appt. Date:??06/13/2023?7:40 AM ?Scheduled Provider:??Device Interrogation ?*BMP??[facility] ?[address],??[address] ?Phone:??--?Fax:??-- ?Appt. Date:??07/25/2023?10:50 AM ?Scheduled Provider:??Ju BROWN , Giovana Marte ?*[facility]??Cardiology1 ?[address]??[place],??[place],??[address] ?Phone:??--?Fax:??-- ?Appt. Date:??08/12/2023?11:25 AM ?Scheduled Provider:??Richard Abel MD Follow-Up Instructions ?? With: Address: When: f/u 3 months Diagnosis Paroxysmal atrial fibrillation; Anxiety disorder, unspecified; Malignant neoplasm of bladder, unspecified; Essential (primary) hypertension; [facility] (current) use of anticoagulants; Dorsalgia, unspecified; Personal history of transient ischemic attack (TIA), and cerebral infarction without residual deficits; Major depressive disorder, single episode, mild; Thrombocytopenia, unspecified; Presence of cardiac pacemaker; Benign neoplasm of pituitary gland; Other amnesia; Type 2 diabetes mellitus with diabetic nephropathy; Type 2 diabetes mellitus with diabetic peripheral angiopathy without gangrene; Benign prostatic hyperplasia without lower urinary tract symptoms; Presence of aortocoronary bypass graft; Gastro-esophageal reflux disease without esophagitis Medications: Please continue your medications until treatment is completed or stopped by your provider. Discuss any questions related to medications with your provider. Medications to Continue Taking That Have Changed [facility], [address] [place] [address] [phone], [phone] - Lorazepam (LORazepam 0.5 mg oral tablet) take as directed altrating with 1mg dose. Refills: 1. Next Dose: These medications were not printed or sent to your pharmacy - Lorazepam (LORazepam 1 mg oral tablet) 1 tab(s) Oral Daily at Bedtime as needed as needed for anxiety. Refills: 1. Next Dose: Medications to Continue with No Changes [facility], [address], [place] [phone], [phone] Omeprazole (omeprazole 20 mg oral enteric coated capsule) 1 capsule Oral Daily. Refills: 1. Next Dose: These medications were not printed or sent to your pharmacy Acetaminophen (acetaminophen 500 mg oral tablet) 2 tab(s) Oral every 8 hours as needed as needed for fever. Next Dose: Allopurinol (allopurinol 100 mg oral tablet) 2 tab(s) Oral Daily. Refills: 5. Next Dose: Amlodipine (amLODIPine 5 mg oral tablet) 1 tab(s) Oral Daily. Refills: 1. Next Dose: apixaban (Eliquis 2.5 mg oral tablet) 1 tab(s) Oral twice a day. Refills: 9. Next Dose: Aspirin (aspirin 81 mg oral tablet) 1 tab(s) Oral Daily for 90 Days. Refills: 3. Next Dose: Atorvastatin (atorvastatin 40 mg oral tablet) 1 tab(s) Oral Daily at Bedtime. Refills: 1. Next Dose: Cholecalciferol (Vitamin D3 2000 intl units oral capsule) 1 capsule Oral Daily for 30 Days. Refills: 11. Next Dose: Finasteride (finasteride 5 mg oral tablet) Next Dose: Furosemide (furosemide 20 mg oral tablet) TAKE 1 TABLET BY MOUTH EVERY DAY. Refills: 2. Next Dose: Magnesium Oxide (magnesium oxide 400 mg oral tablet) 1 tab(s) Oral Daily. Refills: 11. Next Dose: Nystatin Topical (nystatin topical 672821 u/gm powder) 1 venancio Topically twice a day. Refills: 1. Next Dose: Tamsulosin (tamsulosin 0.4 mg oral capsule) 1 capsule Oral Daily at Bedtime. Refills: 1. Next Dose: Thiamine (Vitamin B1 100 mg oral tablet) 1 tab(s) Oral Daily. Refills: 11. Next Dose: No Longer Take the Following Medications Melatonin Daily at Bedtime. Allergy Info:?? traZODone; FLUoxetine; Percocet 5/325; Lactose; Welchol; Bee Stings; Remeron; Effexor; Percocet; citalopram; carvedilol; lisinopril Medications Given This Visit Future Orders ?No future orders Vital Signs Height 175 cm Weight 87.1 kg BMI 28.44 kg/m2 Blood Pressure 130 mm Hg/64 mm Hg Temperature 97.7 DegF Pulse Rate 78 bpm Respiratory Rate 02 Sat Mode of Delivery 93 %/ You can now view a summary of your hospital visit from the comfort of your home through a free online portal called [employer]. [employer] is a website that allows you to securely view your medical information including discharge summary, medications and follow-up visits. ??You can alsosend a secure electronic message to your doctor???s office to request appointments, renew medications or just ask a question. You can enroll at [email or web address] or register during your next office visit. Disclaimer:?? The information provided is of a general nature and is intended to be used in conjunction with the recommendations and advice of your health care practitioner. ??Every effort has been made to ensure that the information provided is accurate and complete at the time it is provided to you however, as your needs change, or, as new ??information becomes available, different or additional instructions may be required. If you have questions, please consult with your primary care provider or pharmacist, as appropriate. ??This information is not intended to serve as substitution for assessment and evaluation by a qualified health care provider. If you do not have a primary care provider, you may find a [facility] provider by calling [facility] [employer] [facility] at [phone]. For information about the plan of care including goals and instructions for your diagnosis, please see the patient education orders section of this document. Patient Education Materials?? The content of this educational material or handout may have been modified, supplemented, or adapted from its original content and format to support your individualized medical care. Patient Care team information Care Team Personnel Name: Giovana Dodd NP Position: [facility] PCO Associate Professional Member Role: [employer] Consulting Provider Address: Address: [address] [place] [address]- [place] Name: Adam Dennis MD Position: [facility] Cardiology MD Member Role: Lif[employer] Consulting Physician Address: Address: [address] [place] [address] [address] [place] [address]- [place] Name: Julia Yu RN Position: S RN Member Role: Primary Care Nurse Name: Jo Dillon RN Position: [facility] RN Member Role: Primary Care Nurse Name: Anh Pires RN Position: [facility] RN Member Role: Primary Care Nurse Name: Lonnie Puente Position: [facility] RN Member Role: Primary Care Nurse Name: Jaqueline Johnson RN Position: [facility] RN Member Role: Primary Care Nurse Name: Deb Brito Position: [facility] [place] [employer] Account Manager Member Role: Bed Teacher Name: Leo Breen DO Position: [facility] Physician - Primary Care Member Role: PCP Address: Address: [address] [place] [id number] Name: Vale CHUN, Viki Eduardo Position: [facility] RN Member Role: Primary Care Nurse Care Team Related Persons Name: SARWAT HENRIQUEZ Address: home [address] [place] [address] Name: JOSEFINA CONTRERAS Address: home [address] [place] [address]
--- OUTSIDE RECORDS SUMMARY | 2023-10-05 09:46 | XMS_ITS | Continuity of Care Document ---
Author Name Unknown Organization [facility] Tom [place] Address [address] [place] [address]- Care Team Providers Care Head Buyer Tobacco Name Role Phone Charisma LENZ, Michael Boston Primary Care Physician [phone] [place] [facility] [place] 10[place]01/21 [facility] Adult [address] [place] [address]- Encounter Diagnosis Chronic gout(Discharge Diagnosis) - 09/01/21 Allergies, Adverse Reactions, Alerts Substance Reaction Severity Status lisinopril 1, 2 Active gabapentin unknown Active carvedilol 3 Active citalopram dizzy Active Percocet vomiting Active Effexor dizziness Active Remeron 4 dizziness Active Bee Stings Active Welchol muscle and joint aches Activ e Lactose 5, 6 diarrhea Active Percocet 5/325 7 Active FLUoxetine dizziness Active 1cough 2possible 3blurred vision 4nightmares 5Patient [...] Pneumococcal Vaccine (oldterm) 11/07/98 Given 1Result Comment: [facility]# [address] [phone] 2Location History: [place] 3Resconstance Comment: [06/30/2017] HIGH DOSE RECIEVED AT [facility] 4Rrenée Comment: [08/12/2015] Received at [facility] [place] 5Result Comment: Pfizer right deltoid lot [id number] exp 06-06-2021 [facility] 6Admin Note: GIVEN IN CLINIC SHAM 7Admin [...] 09/01/21 11:50:00 EDT, Route to Pharmacy Electronically, [facility], 175, cm, 08/12/21 15:35:00 EDT, Height, 84.1, kg, 06/07/21 4:26:00 EDT,... Start Date: 09/01/21 Status: Ordered amLODIPine 5 mg oral tablet See Instructions, 1/2 at night, # 45 each, Refills 1, Tot. Refills 1, Maintenance, 06/08/21 11:27:00 EDT, Instructions Replace Required Details, Route to Pharmacy Electronically, [facility]/pharmacy #[id number], 175, cm, 06/07/21 8:16:00 EDT, Height, [...] 90 tablet, 1 Refills, 09/01/21 11:50:00 EDT, [facility], 175, cm, 08/12/21 15:35:00 EDT, Height, 84.1, kg, 06/07/21 4:26:00 EDT, Dry Weight Start Date: 09/01/21 Status: Ordered Eliquis 2.5 mg oral tablet 1 tablet, By Mouth, 2 times a day, # 180 tablet, 3 Refills, Maintenance, 03/17/21 11:43:00 EDT, [id number], 175, cm, 02/06/21 10:40:00 EDT, Height, 79, [...] bedtime, # 30 tablet, 0 Refills, Maintenance, 09/30/21 12:40:00EST, [facility], 10/10/21, 175, cm, 09/23/21 12:36:00 EST, Height, 84.1, kg, 06/07/21 4:26:00 EDT, Dry Weight Start Date: 09/30/21 Status: Ordered magnesium oxide 400 mg oral tablet 1 tablet = 400 mg, By Mouth, Daily, # 90 tablet, 3 Refills, Maintenance, 02/12/21 17:31:00 EDT, Tablet, [facility]/pharmacy #[id number], Partial fill upon patient request if [...] 90 capsule, 0 Refills, 09/01/21 11:50:00 EDT, [facility], 175, cm, 08/12/21 15:35:00 EDT, Height, 84.1, kg, 06/07/21 4:26:00 EDT, Dry Weight Start Date: 09/01/21 Status: Ordered tamsulosin 0.4 mg oral capsule 1, capsule, By Mouth, Daily at bedtime, # 90 capsule, Refills 1, Tot. Refills 0, Maintenance, 05/08/21 14:24:00 EDT, Route to Pharmacy Electronically, [id number], 175, cm, 04/29/21 10:36:00 EDT,Height, 79, kg, 11/26/20 11:00:00 EST, Dry Weight Start Date: 05/08/21 Status: Ordered thiamine 100 mg oral tablet 100 mg, 1, tablet, By Mouth, Daily, # 30 tablet, Refills 11, Tot. Refills 11, Maintenance, 09/08/2013:24:00 EST, Route to Pharmacy Electronically, [facility]/pharmacy #[id number], 175, cm, 09/08/20 12:47:00 EST,Height, 80.6, kg, 08/05/20 17:31:00 EDT, Dry Weight Start Date: 09/08/20 Status: Ordered traZODone 50 mg oral tablet 25 mg, 0.5, tablet, By Mouth, Daily at bedtime, # 15 tablet, Refills 0, Tot. Refills 0, Maintenance, 09/23/21 13:14:00 EST, Route to Pharmacy Electronically, [facility], Partial fill upon patient request if the prescription is for... 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) 2, 3 Active Arteriosclerotic heart [...] Active Foot pain, bilateral(Confirmed) Active GERD EGD 2007y(Confirmed) Active Chronic gout(Confirmed) 08/09/19 Active H/O endarterectomy [...] 25 Active PAF (paroxysmal atrial fibri llation) [id number] 6(Confirmed) Active 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, 27, 28 Active Restless legs syndrome (RLS)(Confirmed) Active Thrombocytopenia(Confirmed) 29, 30 06/22/09 Active Tricuspid insufficiency(Confirmed) Active Trochanteric bursitis of rig ht hip(Confirmed) Active Type 2 diabetes with nephropathy(Confirmed) Active Type 2 diabetes mellitus wit h peripheral angiopathy(Confirmed) Active 1educated about use epi pen /when call 2[employer] [facility] [id number] 41 graft 5CABG 2002 6Dr nini addressing 7nephrolithiasis 8to workup 9Bipolar button prostatectomy June 2014disectomy 2015 11Seeing pain management had nerve branch blocks done in April left L2 left L3-4 left L5 left S1. 12giardiam,o/p ,culture neg 13normal IGA/TTG 14workup 15urology addressing [id number] 17ortho 18chronic 19RFA 20djd xray 2-015 21xray 2004 LS arthritis etc 22BCG 23carcinoma in situ 24saw ortho 25s aw ortho;injected SEVERE pain 26endocrinology addressing 27MRI pti ;refer endo 28mri c spine 2014 29per hematology ? 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;to follow 30workup in progress Diagnosis Diagnosis Type Effective Dates Health Status Cl inical Service Informant Chronic gout Discharge Diagnosis 09/01/21 Non-Specified Social History Social History Type Response Smoking Status Former smoker, quit more than 30 days ago entered on: 03/01/19 Sex
--- OUTSIDE RECORDS SUMMARY | 2023-10-05 09:46 | XMS_ITS | Continuity of Care Document ---
Author Name Unknown Organization [facility] Tom [place] Address [address] [place] [address]- Care Team Providers Care Customer Pricing Manager Name Role Phone Michael Zafar MD Primary Care Physician [place] [facility] [place] 02/27/20 - 03/05/20 [facility] Adult [address] [place] [address]- [place] Encounter Diagnosis Depression, major(Discharge Diagnosis) - 02/27/20 Attending Physician: Michael Zafar MD Allergies, Adverse [...] [place]ero Comment: [06/30/2017] HIGH DOSE RECIEVED AT [facility] 4Rrenée Comment: [08/12/2015] Received at [facility] [place] 5Admin Note: given in clinic 6Admin Note: [...] 180 tablet, 3 Refills, Maintenance, 03/05/20 13:50:00EDT, [facility]/pharmacy #[id number], 176.5, cm, 12/25/19 15:48:00 EST, Height, [...] Gm, 0 Refills, Maintenance, 10/10/19 11:35:05 EST, [place], 1 sprays Nares, Both 2 times a [...] Replace Required Details, Route to Pharmacy Electronically, [facility]/... Start Date: 12/17/19 Status: Ordered LIDODERM PATCH [...] 3 Refills, Maintenance, 12/17/19 11:48:00 EST, Tablet, [facility]/pharmacy #[id number], Rx resent from 11/03/16., 176.5, cm, 12/17/19 11:35:00 EST, Height, 83.4, kg, 11/02/18 13:42:00 EST, Dry Weight Start Date: 12/17/19 Status: Ordered LORazepam 2 mg oral tablet 1 tablet = 2 mg, By Mouth, 2 times a day, # 60 tablet, 0 Refills, Maintenance, 03/05/20 13:50:00 EDT, [facility]/pharmacy #[id number], 176.5, cm, 12/25/19 15:48:00 EST, Height, 83.4, kg, 11/02/18 13:42:00 EST, Dry Weight Start Date: 03/05/20 Status: Ordered metoprolol 25 mg oral tablet 25 mg, 1, tablet, By Mouth, Daily, tartrate, # 90 tablet, Refills 3, Tot. Refills 3, Maintenance, 02/06/20 14:47:00 EDT, [id number] tartrate, 176.5, cm, 12/25/19 15:48:00 EST, Height, 83.4, kg, 11/02/18 13:42... Start Date: 02/06/20 Status: Ordered metoprolol 25 mg oral tablet 25 mg, 1, tablet, By Mouth, Daily, for 90 days, # 90 tablet, Refills 3, Tot. Refills 3, Hard Stop 10/30/20 12:58:00 EST, 11/05/19 12:58:00 EST, [id number] 176.5, cm, 10/23/19 15:57:00 EST, Height, 83.4, kg, 1... Start Date: 11/05/19 Stop Date: 10/30/20 Status: Ordered omeprazole 20 mg oral delayed release tablet 1 tablet = 20 mg, By Mouth, Daily, # 90 tablet, 3 Refills, Maintenance, 12/17/19 11:48:00 EST, EC [id number] 176.5, cm, 12/17/19 11:35:00 EST, Height, 83.4, kg, 11/02/18 13:42:00 EST, Dry Weight Start Date: 12/17/19 Status: Ordered tamsulosin 0.4 mg oral capsule 0.4 mg, By Mouth, Daily at bedtime, # 90 capsule, Refills 3, Tot. 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) 13 Active Hyperlipidemia NOS(Confirmed) Active Inguinal hernia;left(Confirmed) [...] 23 Active PAF (paroxysmal atrial fibri llation) [id number] 6(Confirmed) Active Pituitary microadenoma(Confi rmed) 24, 25, 26 Active Restless legs syndrome (RLS)(Confirmed) Active Thrombocytopenia(Confirmed) 27, 28 06/22/09 Active Tricuspid insufficiency(Confirmed) Active Trochanteric bursitis of rig ht hip(Confirmed) Active Type 2 diabetes with nephropathy(Confirmed) Active Type 2 diabetes mellitus wit h peripheral angiopathy(Confirmed) Active 1educated about use epi pen /when call 2[employer] 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 12urology addressing [id number] 14ortho 15chronic 16RFA 17djd xray 2-015 18xray 2004 LS arthritis etc 19Zung=mod depression 20BCG 21carcinoma in situ 22saw ortho 23s aw ortho;injected SEVERE pain 24endocrinology addressing 25MRI pti ;refer endo 26mri c spine 2014 27per hematology ? 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;to follow 28workup in progress Diagnosis Diagnosis Type Effective Dates Health Status Cl inical Service Informant Depression, major Discharge Diagnosis 02/27/20 Social History Social History Type Response Smoking Status Former smoker, quit more than 30 days ago entered on: 03/01/19 Sex
--- OUTSIDE RECORDS SUMMARY | 2023-10-05 09:46 | XMS_ITS | Continuity of Care Document ---
Author Name Unknown Organization [facility] Tom [place] Address [address] [place] [address]- Care Team Providers Care Employment And Claims Aide Name Role Phone Michael Zafar MD Primary Care Physician [phone] Encounter [facility] [place] Date(s): 06/20/20 - 06/27/20 [facility] Adult [address] [place] [address]- [facility] Encounter Diagnosis Hypomagnesemia(Discharge Diagnosis) - 06/20/20 Chronic diarrhea episodic normal IGA TTG 2015(Discharge Diagnosis) - 06/20/20 Attending Physician: Michael Zafar MD Allergies, Adverse [...] pneumococcal 13-valent vaccine 12/02/14 Given Fluarix (oldterm) 10/17/12 Given Fluarix (oldterm) 08/10/11 Given pneumococcal 23-valent vaccine 01/18/11 Given Tet/Diphth/Acel, Pertussis (oldterm) 12/15/10 Give n Influenza Inactive (IM) (oldterm) 07/25/09 Given Influenza Inactive (IM) (oldterm) 5 08/13/08 Given Influenza Inactive (IM) (oldterm) 09/01/07 Given Zoster Vaccine Live 12/25/08 Given tetanus-diphtheria toxoids (Td) 6 02/03/01 Given Pneumococcal Vaccine (oldterm) 11/07/98 Given 1Admin Note: GIVEN IN CLINIC [facility]AM 2Location History: [place] 3Rrenée Comment: [06/30/2017] HIGH DOSE RECIEVED AT [facility] DR Kaplan Comment: [08/12/2015] [place] [facility] [place] 5Admin Note: given in clinic 6Admin Note: [...] 2 times a day, # 6 LOT [id number] EXP 2-, # 180 tablet, 0 Refills, Maintenance, 06/13/20 11:45:00 EDT, Dry Weight Start Date: 06/13/20 Status: Ordered apixaban 2.5 mg oral tablet 1 tablet = 2.5 mg, By Mouth, 2 times a day, # 180 tablet, 3 Refills, Maintenance, 03/05/20 13:50:00EDT, [facility]/pharmacy #[id number], 176.5, cm, 12/25/19 15:48:00 [...] Gm, 0 Refills, Maintenance, 10/10/19 11:35:05 EST, [place], 1 sprays Nares, Both 2 times a [...] 3 Refills, Maintenance, 12/17/19 11:48:00 EST, Tablet, [facility]/pharmacy #[id number], Rx resent from 11/03/16., 176.5, cm, 12/17/19 11:35:00 EST, Height, 83.4, kg, 11/02/18 13:42:00 EST, Dry Weight Start Date: 12/17/19 Status: Ordered LORazepam 2 mg oral tablet 1 tablet = 2 mg, By Mouth, 2 times a day, # 60 tablet, 0 Refills, Maintenance, 06/16/20 13:49:00 EDT, [facility]/pharmacy #[id number], 176.5, cm, 06/13/20 12:04:00 EDT, Height, 83.4, kg, 11/02/18 13:42:00 EST, Dry Weight Start Date: 06/16/20 Status: Ordered magnesium oxide 400 mg oral tablet 1 tablet = 400 mg, By Mouth, 2 times a day, # 60 tablet, 3 Refills, Maintenance, 06/16/20 11:54:00 EDT, [facility]/pharmacy #[id number], 176.5, cm, 06/13/20 12:04:00 EDT, Height, 83.4, kg, 11/02/18 13:42:00 EST, Dry Weight Start Date: 06/16/20 Status: Ordered metoprolol 25 mg oral tablet, extended release 25 mg, 1, tablet, By Mouth, Daily, # 90 tablet, Refills 3, Tot. Refills 3, Maintenance, 06/16/20 9:41:00 EDT, Route to Pharmacy Electronically, [facility]/pharmacy #[id number], succinate, 176.5, cm, 06/13/20 12:04:00 EDT, Height, 83.4, kg, 11/02/18 13:42:00 EST, D... Start Date: 06/16/20 Stop Date: 06/11/21 Status: Ordered omeprazole 20 mg oral delayed release tablet 1 tablet = 20 mg, By Mouth, Daily, # 90 tablet, 3 Refills, Maintenance, 12/17/19 11:48:00 EST, EC Tablet, [facility]/pharmacy #[id number], 176.5, cm, 12/17/19 11:35:00 EST, Height, 83.4, kg, 11/02/18 13:42:00 EST, Dry Weight Start Date: 12/17/19 Status: Ordered tamsulosin 0.4 mg oral capsule 0.4 mg, By Mouth, Daily at bedtime, # 90 capsule, Refills 3, Tot. Refills 3, Maintenance, 12/17/19 11:48:00 EST, Route to Pharmacy Electronically, [facility]/pharmacy #[id number], 176.5, cm, 12/17/19 11:35:00 [...] Active Anxiety(Confirmed) Active Aortic valve prosthesis pres [id number] TAVR 2017(Confirmed) 2, 3 Active Arteriosclerotic heart [...] 26 Active PAF (paroxysmal atrial fibri llation) [id number] 6(Confirmed) Active Pituitary microadenoma(Confi rmed) 27, 28, 29 Active Restless legs syndrome (RLS)(Confirmed) Active Thrombocytopenia(Confirmed) 30, 31 06/22/09 Active Tricuspid insufficiency(Confirmed) Active Trochanteric bursitis of rig ht hip(Confirmed) Active Type 2 diabetes with nephropathy(Confirmed) Active Type 2 diabetes mellitus wit h peripheral angiopathy(Confirmed) Active 1educated about use epi pen /when call 2[employer] [facility] [address]285 41 graft 5CABG 2002 6Dr nini addressing 7nephrolithiasis 8to workup 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 12giardiam,o/p ,culture neg 13normal IGA/TTG 14workup 15urology addressing [id number] 17ortho 18chronic 19RFA 20djd xray 2-015 21xray 2005 LS arthritis etc 22Zung=mod depression 23BCG 24carcinoma in situ 25saw ortho 26s aw ortho;injected SEVERE pain 27endocrinology addressing 28MRI pti ;refer endo 29mri c spine 2014 30per hematology ? 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;to follow 31workup in progress Diagnosis Diagnosis Type Effective Dates Health Status Clinical Service Informant Hypomagnesemia Discharge Diagnosis 06/20/20 Chronic diarrhea episodic normal IGA TTG 2014 Discharge Diagnosis 06/20/20 Vital Signs Most recent to oldest [Reference Range]: 1 Height 176.5 cm (06/20/20 9:34 AM) Social History Social History Type Response Smoking Status Former smoker, quit more than 30 days ago entered on: 03/01/19 Sex
--- OUTSIDE RECORDS SUMMARY | 2023-10-05 09:46 | XMS_ITS | Continuity of Care Document ---
Author Name Unknown Organization [facility] Address [address] [place] [address]- Care Team Providers Care Loan Supervisor Name Role Phone Charisma LENZ, Michael Boston Primary Care Physician Encounter [facility] [place] ACCT R [id number] Date(s): 08/17/22 - 09/16/22 [facility] [address] [place] [address]- Attending Physician: Ju Chavez Admitting Physician: AdmtrJu Referring Physician: Admtr, ArOlivier Allergies, Adverse Reactions, Alerts Substance Reaction Severity Status lisinopril 1, 2 Active gabapentin unknown Active carvedilol 3 Active citalopram dizzy Active Percocet vomiting Active Remeron 4 dizziness Active Welchol muscle and joint aches Activ e Lactose 5, 6 diarrhea Active Percocet 5/325 7 Active FLUoxetine dizziness Active traZODone Active Effexor dizziness Active Bee Stings Active 1cough 2possible 3blurred vision 4nightmares 5Patient states 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 6patient states he drinks milk all of the time 7Pt states the last time he hade it, 16 years ago, it made him vomit Immunizations Given and Recorded Vaccine Date Status Refusal Reason SARS-CoV-2 mRNA (rdrfojr-zffd-rdbfv) vax 1 04/29/22 Given influenza virus vaccine, [...] Pneumococcal Vaccine (oldterm) 11/07/98 Given 1Result Comment: [facility]-[id number] 2Result Comment: [facility]# [address] [id number] 3Location History: [place] 4Result Comment: [06/30/2017] HIGH DOSE RECIEVED AT [facility] 5Resconstance Comment: [08/12/2015] Received at [facility] [place] 6Result Comment: Pfizer right deltoid lot [id number] exp 06-06-[address] [facility] 7Admin Note: GIVEN IN CLINIC SHAM 8Admin [...] 09/05/22 12:57:00 EDT, Route to Pharmacy Electronically, [facility], 175, cm, 07/22/22 14:43:00 EDT, Height, 84.1, kg, 06/07/21 4:26:00 EDT, Dry Weight Start Date: 09/05/22 Status: Ordered amLODIPine 5 mg oral tablet 1 tablet, By Mouth, Daily, # 90 tablet, 1 Refills, Maintenance, 08/07/22 10:52:00 EDT, [facility], 175, cm, 07/22/22 14:43:00 EDT, [...] 90 tablet, 1 Refills, 05/09/22 6:15:00 EDT, [facility], 175, cm, 04/29/22 10:58:00 EDT, Height, 84.1, kg, 06/07/21 4:26:00 EDT, Dry Weight Start Date: 05/09/22 Status: Ordered Eliquis 2.5 mg oral tablet 1 tablet, By Mouth, 2 times a day, # 180 tablet, 9 Refills, [facility], 175, cm, 02/09/22 10:10:00 EDT, Height, 84.1, kg, 06/07/21 4:26:00 EDT, Dry Weight Start Date: 02/10/22 Status: Ordered LORazepam 1 mg oral tablet 1 tablet = 1 mg, By Mouth, Daily at bedtime, to refill on due date, 09/09/22 for refill., # 30 tablet, 0 Refills, Maintenance, 08/30/22 7:50:00 EDT, [facility], 175, cm, 07/22/22 14:43:00 EDT, Height, 84.1, kg, 06/07/21 4:26:00 EDT... Start Date: 08/30/22 Status: Ordered magnesium oxide 400 mg oral tablet 1 tablet, By Mouth, Daily, # 90 tablet, 1 Refills, Maintenance, 08/09/22 9:27:00 EDT, [facility], 175, cm, 07/22/22 14:43:00 EDT, Height, 84.1, kg, 06/07/21 4:26:00 EDT, Dry Weight Start Date: 08/09/22 Status: Ordered magnesium oxide 400 mg oral tablet 1 tablet, By Mouth, Daily, # 90 tablet, 11 Refills, Maintenance, 08/09/22 9:27:00 EDT, [facility], 175, cm, 07/22/22 14:43:00 EDT, Height, 84.1, kg, 06/07/21 4:26:00 EDT, Dry Weight Start Date: 08/09/22 Status: Ordered melatonin 5 mg oral tablet [...] Start Date: 05/05/22 Status: Ordered nystatin topical 841113 u/gm powder 1 application, Topically, 2 times a day, # 60 Gm, 5 Refills, Maintenance, 01/14/22 10:20:00 EST, Powder, [facility], Partial fill upon patient request if the prescription is for a schedule II opioid drug., 1 application Topically... Start Date: 01/14/22 Status: Ordered omeprazole 20 mg oral enteric coated capsule 1 capsule, By Mouth, Daily, # 90 capsule, 0 Refills, Maintenance, 08/07/22 10:53:00 EDT, [facility], 175, cm, 07/22/22 14:43:00 EDT, Height, 84.1, kg, 06/07/21 4:26:00 EDT, Dry Weight Start Date: 08/07/22 Status: Ordered sertraline 50 mg oral tablet 1 tablet = 50 mg, By Mouth, Daily, # 90 tablet, 1 Refills, Maintenance, 06/10/22 17:09:00 EDT, Tablet, [facility], Partial fill upon patient request if the prescription is for a schedule II opioid drug., 175, cm, 06/04/22 11:38:00... Start Date: 06/10/22 Status: Ordered tamsulosin 0.4 mg oral capsule 1, capsule, By Mouth, Daily at bedtime, # 90 capsule, Refills 1, Tot. Refills 1, 05/13/22 12:10:00 EDT, Route to Pharmacy Electronically, [facility], 175, cm, 05/12/22 13:46:00 EDT, Height, 84.1, kg, 06/07/21 4:26:00 EDT, Dry Weight Start Date: 05/13/22 Status: Ordered traZODone 50 mg oral tablet 25 mg, 0.5, tablet, By Mouth, Daily at bedtime, # 15 tablet, Refills 0, Maintenance, 05/05/22 0:29:00 EDT, Partial fill upon patient request if the prescription is for a schedule II opioid drug. Start Date: 05/05/22 Status: Ordered Vitamin B1 100 mg oral tablet 1, tablet, By Mouth, Daily, # 30 tablet, Refills 11, Maintenance, 08/09/22 9:27:00 EDT, Route to Pharmacy Electronically, [facility], 175, cm, 07/22/22 14:43:00 EDT, Height, 84.1, kg, 06/07/21 4:26:00 EDT, Dry Weight Start Date: 08/09/22 Status: Ordered Vitamin B1 100 mg oral tablet 1, tablet, By Mouth, Daily, # 30 tablet, Refills 11, Maintenance, 08/09/22 9:27:00 EDT, Route to Pharmacy Electronically, [facility], 175, cm, 07/22/22 14:43:00 EDT, Height, 84.1, kg, 06/07/21 4:26:00 EDT, Dry Weight Start Date: 08/09/22 Status: Ordered Vitamin D3 1000 intl units oral capsule 1 capsule = 25 mcg, By Mouth, Daily, 0 Refills, Maintenance, 09/15/22 10:17:00 EST, Partial fill upon patient request if the prescription is for a schedule II opioid drug. Start Date: 09/15/22 Status: Ordered Vitamin D3 2000 intl units oral capsule 1 capsule = 2,000 International_Units, By Mouth, Daily, # 30 capsule, 11 Refills, Maintenance Start Date: 01/25/13 Stop Date: 01/20/14 Status: Ordered Problem List Condition Confirmation Course Effective Dates Status H ealth Status Informant Bee sting allergy 1 Confirmed Active Memory loss noemal b12,thiamine tsh Confirmed Active Anxiety Confirmed Active Aortic valve prosthesis [id number] TAVR 2017 2, 3 Confirmed Active Arteriosclerotic heart disease (ASHD) cabg 2002;x1 4, 5 Confirmed Active Benign Essential Hypertension Confirmed Active Benign essential microscopic hematuria 6, 7, 8 Confirmed 12/20/08 Active BPH without urinary obstruction 9 Confirmed Active Cataract, bilateral Confirmed Active Sensory hearing loss, bilateral Confirmed Active Cardiac pacemaker Confirmed Active Carpal tunnel syndrome Confirmed Active Cervical disc disorder 10 Confirmed Active Chest wall pain Confirmed Active Chronic back pain spine center 2021 11 Confirmed Active Chronic diarrhea episodic normal IGA TTG 2014 12, 13, 14 Confirmed Active Chronic renal disease, stage 3, moderately decreased glomerular filtration rate (GFR) between 30-59 mL/min/1.73 square meter Confirmed Active CHF (congestive heart failure) systolic Confirmed Active Encounter for monitoring long-term proton pump inhibitor therapy Confirmed Active Elevated PSA 15 Confirmed Active Impaired mobility and ADLs Confirmed Active Foot pain, bilateral Confirmed Active GERD EGD Confirmed Active Chronic gout Confirmed 08/09/19 Active H/O endarterectomy RT 2009,left 2020 DEC Confirmed Active Hearing loss refer eval JUL 2022 Confirmed Active S/P TAVR (transcatheter aortic valve replacement) Confirmed 11/09/18 Active Hx of CABG x ;2002 16 Confirmed Active History of lacunar cerebrovascular accident MRI 2020 Confirmed Active Hyperlipidemia NOS Confirmed Active Hypomagnesemia Confirmed Active Inguinal hernia;left Confirmed 12/17/08 Active Insomnia Confirmed Active Lactose intolerance Confirmed 05/03/21 Active Chronic knee pain 17 Confirmed Active LBBB (left bundle branch block) 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 Active Left inguinal hernia Confirmed Active Localized swelling of left foot Confirmed Active Localized, primary osteoarthritis of the wrist Confirmed Active Chronic anticoagulation Confirmed Active Spondylosis [...] Confirmed 07/22/22 Active PAF (paroxysmal atrial fibrillation) [id number] 6 Confirmed Active Pituitary microadenoma 26, 27, [...] epi pen /when call 2CARPENTIER PERICARDIAL VALVE [facility] [address]756 41 graft 5CABG 2002 6Dr nini addressing 7nephrolithiasis 8to workup 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 12giardiam,o/p ,culture neg 13normal IGA/TTG 14workup 15urology addressing [id number] 17ortho 18chronic 19RFA 20djd xray 2-015 21xray [...] Care Nurse Name: Giovana Dodd NP Position: [facility] PCO Associate Professional Member Role: Lifetime Consulting Provider Address: Address: [address] [place] [id number]- [place] Name: Adam Dennis MD Position: [facility] Cardiology MD Member Role: Lifetime Consulting Physician Address: Address: [address] [place] [address] [address] [place] [address]- [place] Name: Jo Dillon RN Position: S RN Member Role: Primary Care Nurse Name: Anh Pires RN Position: S RN Member Role: Primary Care Nurse Name: Lonnie Puente Position: S RN Member Role: Primary Care Nurse Name: Julia Khan RN Position: [facility] RN Member Role: Primary Care Nurse Name: Jaqueline Johnson RN Position: [facility] RN Member Role: Primary Care Nurse Name: Michael Zafar MD Position: [facility] Primary Care Physician Member Role: PCP Address: Address: [address] [place] [address]- Name: Kathy Arellano RN Position: [facility] RN Member Role: Primary Care Nurse Name: Vale CHUN, Viki Eduardo Position: [facility] RN Member Role: Primary Care Nurse Care Team Related Persons Name: SARWAT HENRIQUEZ Address: [address] [place] [address] Name: JOSEFINA CONTRERAS Address: home [address] [place] [address]
--- OUTSIDE RECORDS SUMMARY | 2023-10-05 09:46 | XMS_ITS | Continuity of Care Document ---
Author Name Unknown Organization [facility] Address [address] [place] [address]- Care Team Providers Care Interactive Account Manager Name Role Phone Leo Breen DO Primary Care Physician [phone] [place] [facility] [place]13[place]23 - 07/13/23 [facility] [address] [place] [address]- Attending Physician: Ju Chavez Admitting Physician: Ju Chavez Referring Physician: Ju Chavez Allergies, Adverse Reactions, Alerts Substance Reaction Severity Status lisinopril 1, 2 Active Effexor dizziness Active Remeron 3 dizziness Active Bee Stings Active Welchol muscle and joint aches Activ e carvedilol 4 Active citalopram dizzy Active Percocet vomiting Active Lactose 5, 6 diarrhea Active FLUoxetine dizziness Active Percocet 5/325 7 Active traZODone Active 1cough 2possible 3nightmares 4blurred vision 5Patient states he cannot drink regular milk [...] vaccine, inactivated 11/27/10 Give n SARS-CoV-2 mRNA ([id number]-kydsy) vax 6 04/29/22 Given SARS-CoV-2 (COVID-19) mRNA [...] Pneumococcal Vaccine (oldterm) 11/07/98 Given 1Result Comment: [id number] 2Result Comment: [facility]# [place] [address] [address]-745-29 [facility] 4Result Comment: [06/30/2017] HIGH DOSE RECIEVED AT [facility] 5Resconstance Comment: [08/12/2015] [place] [facility] [place] Comment: [facility]-[id number] 7Result Comment: Pfizer right deltoid lot [id number] exp 06-06-2021 [facility] 8Admin Note: GIVEN IN CLINIC SHAM 9Admin [...] 04/07/23 14:29:00 EDT, Route to Pharmacy Electronically, [facility], 175, cm, 03/16/23 12:17:00 EDT, Height, 84.1, kg, 06/07/21 4:26:00 EDT, Dry Weight Start Date: 04/07/23 Status: Ordered amLODIPine 5 mg oral tablet 1 tablet, By Mouth, Daily, # 90 tablet, 1 Refills, Maintenance, 07/05/23 13:28:00 EDT, [facility], 175, cm, 06/13/23 13:20:00 EDT, Height Start Date: 07/05/23 Status: Ordered aspirin 81 mg oral tablet 1 tablet = 81 mg, By Mouth, Daily, # 90 tablet, 3 Refills, 1 tablet By Mouth Daily,x90 days Start Date: 10/26/13 Stop Date: 10/21/14 Status: Ordered atorvastatin 40 mg oral tablet 1 tablet, By Mouth, Daily at bedtime, # 90 tablet, 1 Refills, Maintenance, 05/13/23 10:04:00 EDT, [facility], 175, cm, 04/12/23 11:54:00 EDT, Height, 84.1, kg, 06/07/21 4:26:00 EDT, Dry Weight Start Date: 05/13/23 Status: Ordered Eliquis 2.5 mg oral tablet 1 tablet, By Mouth, 2 times a day, # 180 tablet, 9 Refills, 02/18/23 17:26:00 EDT, [facility], 175, cm, 01/24/23 11:05:00 EDT, [...] Replace Required Details, Route to Pharmacy Electronically, [facility], 175, cm, 06/13/23... Start Date: 06/17/23 Status: Ordered LORazepam 0.5 mg oral tablet See Instructions, take as directed altrating with 1mg dose, # 12 each, 1 Refills, Maintenance, 06/13/23 13:29:00 EDT, Tablet, [facility], starting to wean down Partial fill upon patient request if the prescription is for a schedul... Start Date: 06/13/23 Status: Ordered LORazepam 1 mg oral tablet 1 tablet = 1 mg, By Mouth, Daily at bedtime, PRN as needed for anxiety, taper as directed, # 30 tablet, 1 Refills, Maintenance, 06/16/23 8:19:00 EDT, [facility], 175, cm, 06/13/2313:20:00 EDT, Height Start Date: 06/16/23 Status: Ordered magnesium oxide 400 mg oral tablet 1 tablet, By Mouth, Daily, # 90 tablet, 11 Refills, Maintenance, 08/09/22 9:27:00 EDT, [facility], 175, cm, 07/22/22 14:43:00 EDT, Height, 84.1, kg, 06/07/21 4:26:00 EDT, Dry Weight Start Date: 08/09/22 Status: Ordered nystatin topical 415205 u/gm powder 1 application, Topically, 2 times a day, # 60 Gm, 1 Refills, Maintenance, 04/08/23 10:05:00 EDT, Powder, [facility], 1 application Topically 2 times a day, 175, cm, 03/16/23 12:17:00 EDT, Height, 84.1, kg, 06/07/21 4:26:00 EDT, . Start Date: 04/08/23 Status: Ordered omeprazole 20 mg oral enteric coated capsule 1 capsule, By Mouth, Daily, # 90 capsule, 1 Refills, Maintenance, 06/13/23 13:22:00 EDT, [facility], 175, cm, 06/13/23 13:20:00 EDT, Height Start Date: 06/13/23 Status: Ordered tamsulosin 0.4 mg oral capsule 1, capsule, By Mouth, Daily at bedtime, # 90 capsule, Refills 1, Maintenance, 05/13/23 10:04:00 EDT, Route to Pharmacy Electronically, [facility], 175, cm, 04/12/23 11:54:00 EDT,Height, 84.1, kg, 06/07/21 4:26:00 EDT, Dry Weight Start Date: 05/13/23 Status: Ordered Vitamin B1 100 mg oral tablet 1, tablet, By Mouth, Daily, # 30 tablet, Refills 11, Maintenance, 08/09/22 9:27:00 EDT, Route to Pharmacy Electronically, [facility], 175, cm, 07/22/22 14:43:00 EDT, [...] Active Anxiety Confirmed Active Aortic valve prosthesis [id number] TAVR 2017 1, 2 Confirmed Active Arteriosclerotic [...] 08/09/19 Active H/O endarterectomy RT 2009,left 2020 Confirmed Active S/P TAVR (transcatheter aortic valve [...] cyysto 2021 advised re abn cytology , 20 Confirmed Active Mass of left parotid gland 1.[address] 2021 dec Confirmed 11/02/21 Active Mild major depression, single episode 21 Confirmed Active Mild mitral insufficiency Confirmed Active Nephrolithiasis Confirmed Active Knee osteoarthritis 22 Confirmed Active Breast pain, left refer breast center Confirmed 07/22/22 Active PAF (paroxysmal atrial fibrillation) [id number] 6 Confirmed Active 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 11giardiam,o/p ,culture neg 12normal IGA/TTG 13workup [id number] 15chronic 16RFA 17djd xray 2-015 18xray 2004 LS arthritis etc 19BCG 20carcinoma in situ 21Per Dr. aZfar 07/22/22. 22saw ortho 23endocrinology addressing 24MRI pti ;refer endo 25mri c spine 2014 26per hematology ? 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;to follow 27workup in progress Social History Social History Type Response Smoking Status Former smoker, quit more than 30 days ago; Type: Cigarettes; Type: Cigars entered on: 01/24/23 Sex Cardiology * Event Display: Cardiovascular Result Scanned Authored Date: * Event Display: Cardiovascular Result Scanned Authored Date: Patient Care team information Care Team Personnel Name: Giovana Dodd NP Position: [facility] PCO Associate Professional Member Role: Lifetime Consulting Provider Address: Address: [address] [place] [id number]- [place] Name: Adam Dennis MD Position: [facility] Cardiology MD Member Role: Lifetime Consulting Physician Address: Address: [address] [place] [address] [address] [place] [address]- [place] Name: Julia Yu RN Position: [facility] RN Member Role: Primary Care Nurse Name: Jo Dillon RN Position: [facility] RN Member Role: Primary Care Nurse Name: Anh Pires RN Position: [facility] RN Member Role: Primary Care Nurse Name: Lonnie Puente RN Position: [facility] RN Member Role: Primary Care Nurse Name: Jaqueline Johnson RN Position: [facility] RN Member Role: Primary Care Nurse Name: Deb Brito Position: [facility] [place] Intensive Care Nurse Member Role: Beekeeper Farmer Name: Leo Breen DO Position: [facility] Physician - Primary Care Member Role: PCP Address: Address: [address] [place] [id number] Name: Vale CHUN, Viki Eduardo Position: [facility] RN Member Role: Primary Care Nurse Care Team Related Persons Name: SARWAT HENRIQUEZ Address: [address] [place] [address] Name: JOSEFINA CONTRERAS Address: [address] [place] [address]
--- OUTSIDE RECORDS SUMMARY | 2023-10-05 09:46 | XMS_ITS | Continuity of Care Document ---
Author Name Unknown Organization [facility] Address [address] [place] [address]- Care Team Providers Care Service Car Operator Name Role Phone Charisma LENZ, Michael Boston Primary Care Physician [place] [facility] [place] Date(s): 04/29/21 - 05/29/21 [facility] [address] [place] [address]- Attending Physician: Ju Chavez Admitting Physician: Admtr, [id number] Referring Physician: Admtr, [id number] Allergies, Adverse Reactions, Alerts Substance Reaction Severity [...] Given 1Result Comment: Pfizer right deltoid lot [id number] exp 06-06-2021 [facility] 2Location History: [place] 3Resconstance Comment: [06/30/2017] HIGH DOSE RECIEVED AT [facility] 4Rrenée Comment: [08/12/2015] Received at [facility] [place] 5Admin Note: GIVEN IN CLINIC SHAM 6Admin [...] 03/25/21 10:33:00 EDT, [id number], cm, 03/20/21 12:09:00 EDT, Height, 79, kg, 11/26/20 11:00:00 EST, Dry Weight Start Date: 03/25/21 Status: Ordered amLODIPine 5 mg oral tablet 5 mg, 1, tablet, By Mouth, Daily, # 90 tablet, Refills 1, Tot. Refills 1, Maintenance, 03/14/21 5:46:00 EDT, [id number] 175, cm, 02/06/21 10:40:00 EDT, Height, [...] 3 Refills, Maintenance, 03/17/21 11:43:00 EDT, [id number], 175, cm, 02/06/21 10:40:00 EDT, Height, 79, [...] 30 tablet, 0 Refills, Maintenance, 04/16/21 12:14:00EDT, [facility]/pharmacy #[id number], 175, cm, 03/20/21 12:09:00 EDT, Height, 79, kg, 11/26/20 11:00:00 EST, DryWeight Start Date: 04/16/21 Status: Ordered magnesium oxide 400 mg oral tablet 1 tablet = 400 mg, By Mouth, Daily, # 90 tablet, 3 Refills, Maintenance, 02/12/21 17:31:00 EDT, Tablet, [facility]/pharmacy #[id number], Partial fill upon patient [...] capsule, 0 Refills, Maintenance, 05/11/21 7:24:00 EDT, [facility]/pharmacy #[id number], Rx resent from 05/08/21., 175, cm, 04/29/21 10:36:00 EDT, Height, 79, kg, 11/26/20 11:00:00 EST, Dry Weight Start Date: 05/11/21 Status: Ordered tamsulosin 0.4 mg oral capsule 1, capsule, By Mouth, Daily at bedtime, # 90 capsule, Refills 1, Tot. Refills 0, Maintenance, 05/08/21 14:24:00 EDT, Route to Pharmacy Electronically, [id number], 175, cm, 04/29/21 10:36:00 EDT,Height, 79, kg, 11/26/20 11:00:00 EST, Dry Weight Start Date: 05/08/21 Status: Ordered thiamine 100 mg oral tablet 100 mg, 1, tablet, By Mouth, Daily, # 30 tablet, Refills 11, Tot. Refills 11, Maintenance, 09/08/2013:24:00 EST, Route to Pharmacy Electronically, [facility]/pharmacy #[id number], 175, cm, 09/08/20 12:47:00 EST,Height, [...] Active Anxiety(Confirmed) Active Aortic valve prosthesis pres [id number] TAVR 2017(Confirmed) 2, 3 Active Arteriosclerotic heart [...] 25 Active PAF (paroxysmal atrial fibri llation) [id number] 6(Confirmed) Active 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, 27, 28 Active Restless legs syndrome (RLS)(Confirmed) Active Thrombocytopenia(Confirmed) 29, 30 06/22/09 Active Tricuspid insufficiency(Confirmed) Active Trochanteric bursitis of rig ht hip(Confirmed) Active Type 2 diabetes with nephropathy(Confirmed) Active Type 2 diabetes mellitus wit h peripheral angiopathy(Confirmed) Active 1educated about use epi pen /when call 2CARPENTIER PERICARDIAL VALVE [facility] [address] 41 graft 5CABG 2002 6Dr nini addressing 7nephrolithiasis 8to workup 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 12giardiam,o/p ,culture neg 13normal IGA/TTG 14workup 15urology addressing [id number] 17ortho 18chronic 19RFA 20djd xray 2-015 21xray [...]
--- OUTSIDE RECORDS SUMMARY | 2023-10-05 09:46 | XMS_ITS | Continuity of Care Document ---
Author Name Unknown Organization [facility] Address [address] [place] [address]- Care Team Providers Care Wool Hat Hydraulicker Name Role Phone Charisma LENZ, Michael Boston Primary Care Physician En[place] [facility] [place] Date(s): 12/01/20 - 12/31/20 [facility] [address] [place] [address]- Allergies, Adverse Reactions, Alerts Substance Reaction Severity [...] Status Refusal Reason influenza virus vaccine, inactivated 08/06/20 Give n influenza virus vaccine, inactivated 1 07/31/18 Re corded influenza virus vaccine, inactivated 2 06/30/17 Re corded influenza virus vaccine, inactivated 08/26/16 Give n influenza virus vaccine, inactivated 3 08/10/15 Gi mireya influenza virus vaccine, inactivated 08/07/14 Give n influenza virus vaccine, inactivated 07/26/13 Give n influenza virus vaccine, inactivated 11/27/10 Give n Influenza Virus Vaccine (oldterm) 08/14/19 Recorde d Influenza Virus Vaccine (oldterm) 4 08/31/06 Given pneumococcal 13-valent vaccine 12/02/14 Given Fluarix (oldterm) 08/23/12 Given Fluarix (oldterm) 08/10/11 Given pneumococcal 23-valent vaccine 01/18/11 Given Tet/Diphth/Acel, Pertussis (oldterm) 12/15/10 Give n Influenza Inactive (IM) (oldterm) 07/25/09 Given Influenza Inactive (IM) (oldterm) 5 08/13/08 Given Influenza Inactive (IM) (oldterm) 09/01/07 Given Zoster Vaccine Live 12/25/08 Given tetanus-diphtheria toxoids (Td) 6 02/03/01 Given Pneumococcal Vaccine (oldterm) 11/07/98 Given 1Location History: Lary Bradford Comment: [06/30/2017] HIGH DOSE RECIEVED AT [facility] DR Lucero Comment: [08/12/2015] [place] at [facility] [place] 4Ain Note: GIVEN IN CLINIC SHAM 5Admin Note: given in clinic 6Admin Note: historical data Medications acetaminophen 325 mg oral tablet 650 mg, By Mouth, Every 4 hours, PRN, Refills 0, Maintenance, Pain , Mild, 11/10/18 15:51:53 EST Start Date: 11/10/18 Status: Ordered allopurinol 100 mg oral tablet 100 mg, 1, tablet, By Mouth, Daily, # 30 tablet, Refills 5, Tot. Refills 5, Maintenance, 10/20/20 11:45:00 EST, [id number], cm, 10/20/20 11:12:00 EST, Height, 80.6, kg, 08/05/20 17:31:00 EDT, Dry Weight Start Date: 10/20/20 Status: Ordered amLODIPine 5 mg oral tablet 5 mg, 1, tablet, By Mouth, Daily, # 30 tablet, Refills 3, Tot. Refills 3, Maintenance, 12/05/20 9:44:00 EST, Route to Pharmacy Electronically, [facility]/pharmacy #[id number], 175, cm, 12/05/20 8:32:00 EST, Height, 79, kg, 11/26/20 11:00:00 EST, Dry Weight Start Date: 12/05/20 Status: Ordered apixaban 2.5 mg oral tablet 1 tablet = 2.5 mg, By Mouth, 2 times a day, # 180 tablet, 3 Refills, Maintenance, 03/05/20 13:50:00EDT, [facility]/pharmacy #[id number], 176.5, cm, 12/25/19 15:48:00 EST, Height, 83.4, kg, 11/02/18 13:42:00 EST,Dry Weight Start Date: 03/05/20 Status: Ordered aspirin 81 mg oral tablet 1 tablet = 81 mg, By Mouth, Daily, # 90 tablet, 3 Refills, 1 tablet By Mouth Daily,x90 days Start Date: 10/26/13 Stop Date: 10/21/14 Status: Ordered Lasix 20 mg oral tablet [...] 3 Refills, Maintenance, 12/17/19 11:48:00 EST, Tablet, [facility]/pharmacy #[id number], Rx resent from 11/03/16., 176.5, cm, 12/17/19 11:35:00 EST, Height, 83.4, kg, 11/02/18 13:42:00 EST, Dry Weight Start Date: 12/17/19 Status: Ordered LORazepam 1 mg oral tablet 1 tablet = 1 mg, By Mouth, Daily at bedtime, # 30 tablet, 0 Refills, Maintenance, 12/09/20 10:18:00EST, [id number], 175, cm, 12/05/20 8:32:00 EST, Height, 79, kg, 11/26/20 11:00:00 EST, Dry Weight Start Date: 12/09/20 Status: Ordered magnesium oxide 400 mg oral tablet 1 tablet = 400 mg, By Mouth, Daily, 0 Refills, Maintenance, 09/09/20 10:39:00 EST Start Date: 09/09/20 Status: Ordered melatonin 5 mg oral tablet By Mouth, Daily at bedtime, 0 Refills, Maintenance, 08/08/20 9:44:00 EDT, Tablet Start Date: 08/08/20 Status: Ordered omeprazole 20 mg oral delayed release tablet 1 tablet = 20 mg, By Mouth, Daily, # 90 tablet, 3 Refills, Maintenance, 12/17/19 11:48:00 EST, EC Tablet, [facility]/pharmacy #[id number], 176.5, cm, 12/17/19 11:35:00 EST, Height, 83.4, kg, 11/02/18 13:42:00 EST, Dry Weight Start Date: 12/17/19 Status: Ordered tamsulosin 0.4 mg oral capsule 0.4 mg, By Mouth, Daily at bedtime, # 90 capsule, Refills 3, Tot. Refills 3, Maintenance, 12/17/19 11:48:00 EST, Route to Pharmacy Electronically, [facility]/pharmacy #[id number], 176.5, cm, 12/17/19 11:35:00 EST, Height, 83.4, kg, 11/02/18 13:42:00 EST, Dry Weight Start Date: 12/17/19 Status: Ordered thiamine 100 mg oral tablet 100 mg, 1, tablet, By Mouth, Daily, # 30 tablet, Refills 11, Tot. 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 TAVR 2018(Confirmed) 2, 3 Active Arteriosclerotic heart disea se (ASHD) cabg 2002;x1(Confirmed) 4, 5 Active Benign Essential Hypertension(Confirmed) Active Benign essential microscopic hematuria(Confirmed) 6, 7, 8 12/20/08 Active BPH without urinary obstruction(Confirmed) 9 Active Cataract, bilateral(Confirmed) Active Cardiac pacemaker(Confirmed) Active Carpal tunnel [...] 25 Active PAF (paroxysmal atrial fibri llation) [id number] 6(Confirmed) Active 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, 27, 28 Active Restless legs syndrome (RLS)(Confirmed) Active Thrombocytopenia(Confirmed) 29, 30 06/22/09 Active Tricuspid insufficiency(Confirmed) Active Trochanteric bursitis of rig ht hip(Confirmed) Active Type 2 diabetes with nephropathy(Confirmed) Active Type 2 diabetes mellitus wit h peripheral angiopathy(Confirmed) Active 1educated about use epi pen /when call 2[employer] [facility] 68897 41 graft 5CABG 2002 6Dr nini addressing 7nephrolithiasis 8to workup 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 12giardiam,o/p ,culture neg 13normal IGA/TTG 14workup 15urology addressing [id number] 17ortho 18chronic 19RFA 20djd xray 2-015 21xray [...]
--- OUTSIDE RECORDS SUMMARY | 2023-10-05 09:46 | XMS_ITS | Continuity of Care Document ---
Author Name Unknown Organization [facility] Anders Bradley Tom lt Address [address] [place] [address]- Care Team Providers Care Sales Professional Bilingual Name Role Phone Charisma LENZ, Michael Boston Primary Care Physician [phone] Encounter [facility] [place] Date(s): 01/11/21 - 02/10/21 [facility] Anders Gottiley Adult [address] [place] [address]- Allergies, Adverse Reactions, Alerts Substance Reaction Severity [...] Refusal Reason SARS-CoV-2 (COVID-19) mRNA BNT-162b2 vac 01/18/21 Recorded [...] Bradford Comment: [06/30/2017] HIGH DOSE RECIEVED AT [facility] DR Lucero Comment: [08/12/2015] Received at [facility] [place] 4Ain Note: GIVEN IN CLINIC SHAM 5Admin Note: given in clinic 6Admin Note: historical data Medications acetaminophen 325 mg oral tablet 650 mg, By Mouth, Every 4 hours, PRN, Refills 0, Maintenance, Pain , Mild, 11/10/18 15:51:53 EST Start Date: 11/10/18 Status: Ordered allopurinol 100 mg oral tablet See Instructions, alternate 2y, # 90 each, Refills 5, Tot. Refills 5, Maintenance, 10/20/20 11:45:00 EST, Instructions Replace Required Details, [id number] 175, cm, 10/20/20 11:12:00 EST, Height, 80.6,... Start Date: 10/20/20 Status: Ordered amLODIPine 5 mg oral tablet 5 mg, 1, tablet, By Mouth, Daily, # 30 tablet, Refills 3, Tot. Refills 3, Maintenance, 12/05/20 9:44:00 EST, [id number], 175, cm, 12/05/20 8:32:00 EST, Height, 79, kg, 11/26/20 11:00:00 EST, Dry Weight Start Date: 12/05/20 Status: Ordered apixaban 2.5 mg oral tablet 1 tablet = 2.5 mg, By Mouth, 2 times a day, # 180 tablet, 3 Refills, Maintenance, 03/05/20 13:50:00EDT, [facility]/pharmacy #[id number], 176.5, cm, 12/25/19 15:48:00 EST, Height, [...] 1 Refills, Maintenance, 02/07/21 22:44:00 EDT, Tablet, [facility]/pharmacy #[id number], Rx resent from 11/03/16., 175, cm, 02/06/21 10:40:00 EDT, Height,79, kg, 11/26/20 11:00:00 EST, Dry Weight Start Date: 02/07/21 Status: Ordered LORazepam 1 mg oral tablet 1 tablet = 1 mg, By Mouth, Daily at bedtime, # 30 tablet, 0 Refills, Maintenance, 02/09/21 11:46:00EDT, [facility]/pharmacy #[id number], 175, cm, 02/06/21 10:40:00 EDT, Height, 79, kg, 11/26/20 11:00:00 EST, DryWeight Start Date: 02/09/21 Status: Ordered magnesium oxide 400 mg oral [...] mg, By Mouth, Daily, # 90 tablet, 0 Refills, Maintenance, 02/07/21 22:44:00 EDT, EC Tablet, [facility]/pharmacy #0315, 175, cm, 02/06/21 10:40:00 EDT, Height, 79, kg, 11/26/20 11:00:00 EST, Dry Weight Start Date: 02/07/21 Status: Ordered predniSONE 20 mg oral tablet 1 tablet = 20 mg, By Mouth, 2 times a day, with food or milk, # 6 tablet, 0 Refills, Maintenance, 02/06/21 10:49:00 EDT, Tablet, [facility]/pharmacy #[id number], Partial fill upon patient request if the prescription is for a schedule II opioid drug., 175, cm, 04/0... Start Date: 02/06/21 Status: Ordered tamsulosin 0.4 mg oral capsule 0.4 mg, By Mouth, Daily at bedtime, # 90 capsule, Refills 1, Tot. Refills 1, Maintenance, 02/07/21 22:44:00 EDT, Route to Pharmacy Electronically, [facility]/pharmacy #0315, 175, cm, 02/06/21 10:40:00 EDT, Height, 79, kg, 11/26/20 11:00:00 EST, Dry Weight Start Date: 02/07/21 Status: Ordered thiamine 100 mg oral tablet 100 mg, 1, tablet, By Mouth, Daily, # 30 tablet, Refills 11, Tot. Refills 11, Maintenance, 09/08/2013:24:00 EST, Route to Pharmacy Electronically, [facility]/pharmacy #[id number], 175, cm, 09/08/20 12:47:00 EST,Height, 80.6, [...] Active Anxiety(Confirmed) Active Aortic valve prosthesis pres [id number] TAVR 2017(Confirmed) 2, 3 Active Arteriosclerotic heart [...] 25 Active PAF (paroxysmal atrial fibri llation) [id number] 6(Confirmed) Active 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, 27, 28 Active Restless legs syndrome (RLS)(Confirmed) Active Thrombocytopenia(Confirmed) 29, 30 06/22/09 Active Tricuspid insufficiency(Confirmed) Active Trochanteric bursitis of rig ht hip(Confirmed) Active Type 2 diabetes with nephropathy(Confirmed) Active Type 2 diabetes mellitus wit h peripheral angiopathy(Confirmed) Active 1educated about use epi pen /when call 2[employer] [facility] 06948 41 graft 5CABG 2002 6Dr nini addressing 7nephrolithiasis 8to workup 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 12giardiam,o/p ,culture neg 13normal IGA/TTG 14workup 15urology addressing [id number] 17ortho 18chronic 19RFA 20djd xray 2-015 21xray [...]
--- OUTSIDE RECORDS SUMMARY | 2023-10-05 09:47 | XMS_ITS | Continuity of Care Document ---
Author Name Unknown Organization [facility] Address [address] [place] [address]- Care Team Providers Care Cafeteria Server Name Role Phone Charisma LENZ, Michael Boston Primary Care Physician Encounter 11/30/20 - 01/28/21 [facility] [address] [place] [address]- Discharge Disposition: GOALS MET Allergies, Adverse Reactions, Alerts Substance Reaction Severity Status lisinopril 1, 2 Active Percocet vomiting Active Effexor dizziness Active Remeron 3 dizziness Active gabapentin unknown Active carvedilol 4 Active citalopram dizzy Active Bee Stings Active Welchol muscle and joint aches Activ e FLUoxetine dizziness Active Percocet 5/325 5 Active 1cough 2possible 3nightmares 4blurred vision 5Pt states the last time he hade [...] Bradford Comment: [06/30/2017] HIGH DOSE RECIEVED AT [facility] DR Lucero Comment: [08/12/2015] [place] [facility] [place] 4[place]in Note: GIVEN IN CLINIC SHAM 5Admin [...] 10/20/20 11:45:00 EST, [id number] 175, cm, 10/20/20 11:12:00 EST, Height, 80.6, kg, 08/05/20 17:31:00 EDT, Dry Weight Start Date: 10/20/20 Status: Ordered amLODIPine 5 mg oral tablet 5 mg, 1, tablet, By Mouth, Daily, # 30 tablet, Refills 3, Tot. Refills 3, Maintenance, 12/05/20 9:44:00 EST, [id number] 175, cm, 12/05/20 8:32:00 EST, Height, 79, kg, 11/26/20 11:00:00 EST, Dry Weight Start Date: 12/05/20 Status: Ordered apixaban 2.5 mg oral tablet 1 tablet = 2.5 mg, By Mouth, 2 times a day, # 180 tablet, 3 Refills, Maintenance, 03/05/20 13:50:00EDT, [facility]/pharmacy #[id number], 176.5, cm, 12/25/19 15:48:00 EST, [...] 3 Refills, Maintenance, 12/17/19 11:48:00 EST, Tablet, [id number], Rx resent from 11/03/16., 176.5, cm, 12/17/19 11:35:00 EST, Height, 83.4, kg, 11/02/18 13:42:00 EST, Dry Weight Start Date: 12/17/19 Status: Ordered LORazepam 1 mg oral tablet 1 tablet = 1 mg, By Mouth, Daily at bedtime, # 30 tablet, 0 Refills, Maintenance, 01/08/21 14:42:00EST, [id number], 175, cm, 01/02/21 11:40:00 EST, Height, 79, kg, 11/26/20 11:00:00 EST, DryWeight Start Date: 01/08/21 Status: Ordered magnesium oxide 400 mg oral [...] Refills, Maintenance, 12/17/19 11:48:00 EST, EC Tablet, [facility]/pharmacy #[id number], 176.5, cm, 12/17/19 11:35:00 EST, Height, 83.4, kg, 11/02/18 13:42:00 EST, Dry Weight Start Date: 12/17/19 Status: Ordered tamsulosin 0.4 mg oral capsule 0.4 mg, By Mouth, Daily at bedtime, # 90 capsule, Refills 3, Tot. Refills 3, Maintenance, 12/17/19 11:48:00 EST, Route to Pharmacy Electronically, [facility]/pharmacy #[id number], 176.5, cm, 12/17/19 11:35:00 EST, Height, 83.4, kg, 11/02/18 13:42:00 EST, Dry Weight Start Date: 12/17/19 Status: Ordered thiamine 100 mg oral tablet 100 mg, 1, tablet, By Mouth, Daily, # 30 tablet, Refills 11, Tot. Refills 11, Maintenance, 09/08/2013:24:00 EST, Route to Pharmacy Electronically, [facility]/pharmacy #[id number], 175, cm, 09/08/20 12:47:00 EST,Height, [...] Active Anxiety(Confirmed) Active Aortic valve prosthesis pres [id number] TAVR 2017(Confirmed) 2, 3 Active Arteriosclerotic heart [...] Active Foot pain, bilateral(Confirmed) Active GERD EGD (Confirmed) Active Chronic gout(Confirmed) 08/09/19 Active H/O endarterectomy [...] 25 Active PAF (paroxysmal atrial fibri llation) [id number] 6(Confirmed) Active 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, 27, 28 Active Restless legs syndrome (RLS)(Confirmed) Active Thrombocytopenia(Confirmed) 29, 30 06/22/09 Active Tricuspid insufficiency(Confirmed) Active Trochanteric bursitis of rig ht hip(Confirmed) Active Type 2 diabetes with nephropathy(Confirmed) Active Type 2 diabetes mellitus wit h peripheral angiopathy(Confirmed) Active 1educated about use epi pen /when call 2[employer] 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 12giardiam,o/p ,culture neg 13normal IGA/TTG 14workup 15urology addressing [id number] 17ortho 18chronic 19RFA 20djd xray 2-015 21xray 2005 LS arthritis etc 22BCG 23carcinoma in situ [...]
--- OUTSIDE RECORDS SUMMARY | 2023-10-05 09:47 | XMS_ITS | Continuity of Care Document ---
Author Name Unknown Organization [facility] Tom lt Address [address] [place] [address]- Care Team Providers Care Service Now Developer Name Role Phone Charisma LENZ, Michael Boston Primary Care Physician En[place] [facility] [place] Date(s): 10/09/19 - 11/10/19 [facility] Adult [address] [place] [address]- [facility] Attending Physician: Ju BROWN, Giovana Chiu Allergies, Adverse Reactions, Alerts Substance Reaction Severity [...] 3Rrenée Comment: [06/30/2017] HIGH DOSE RECIEVED AT [facility] 4Rrenée Comment: [08/12/2015] [place] [facility] [place] 5Admin Note: given in clinic [...] Gm, 0 Refills, Maintenance, 10/10/19 11:35:05 EST, [employer], 1 sprays Nares, Both 2 times a [...] Replace Required Details, Route to Pharmacy Electronically, [facility]/... Start Date: 11/05/19 Status: Ordered LIDODERM PATCH [...] 3 Refills, Maintenance, Tablet, Route toPharmacy Electronically, [id number], [id number], Rx resent from [...] 11/05/19 12:58:00 EST, Route to Pharmacy Electronically, [facility]/pharmacy #[id number], 176.5, cm, 10/23/19 15:57:00 EST, Height, [...] 12/28/18 10:45:55 EST, Route to Pharmacy Electronically, [id number] Start Date: 12/28/18 Status: Ordered Tums 500 [...] Active Anxiety(Confirmed) Active Aortic valve prosthesis pres [id number] TAVR 2017(Confirmed) 2, 3 Active Arteriosclerotic heart [...] 25 Active PAF (paroxysmal atrial fibri llation) [id number] 6(Confirmed) Active 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, 27, 28 Active Restless legs syndrome (RLS)(Confirmed) Active Thrombocytopenia(Confirmed) 29, 30 06/22/09 Active Tricuspid insufficiency(Confirmed) Active Trochanteric bursitis of rig ht hip(Confirmed) Active Type 2 diabetes with nephropathy(Confirmed) Active Type 2 diabetes mellitus wit h peripheral angiopathy(Confirmed) Active Active 1educated about use epi pen /when call 2[employer] [facility] 21299 41 graft 5CABG 2002 6Dr nini addressing 7nephrolithiasis 8to workup 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
--- OUTSIDE RECORDS SUMMARY | 2023-10-05 09:47 | XMS_ITS | Continuity of Care Document ---
Author Name Unknown Organization [facility] Tom lt Address [address] [place] [address]- Care Team Providers Care Autoglazier Name Role Phone Michael Zafar MD Primary Care Physician [phone] Encounter [facility] [place] Date(s): 03/14/20 - 03/21/20 [facility] Adult [address] [place] [address]- [place] Encounter Diagnosis Depression, major(Discharge Diagnosis) - 03/14/20 Attending Physician: Michael Zafar MD Allergies, Adverse [...] Lucero Comment: [06/30/2017] HIGH DOSE RECIEVED AT [facility] 4Rrenée Comment: [08/12/2015] Received at [facility] [place] 5Admin Note: given in clinic 6Admin Note: [...] 180 tablet, 3 Refills, Maintenance, 03/05/20 13:50:00EDT, [facility]/pharmacy #[id number], 176.5, cm, 12/25/19 15:48:00 EST, Height, 83.4, kg, 11/02/18 13:42:00 EST,Dry Weight Start Date: 03/05/20 Status: Ordered aspirin 81 mg oral tablet 1 tablet = 81 mg, By Mouth, Daily, # 90 tablet, 3 Refills, 1 tablet By Mouth Daily,x90 days Start Date: 10/26/13 Stop Date: 10/21/14 Status: Ordered buPROPion 150 mg/24 hours (XL) oral tablet, extended release 1 tablet = 150 mg, By Mouth, Every 24 hours, # 30 tablet, 0 Refills, Maintenance, 03/21/20 10:41:00EDT, ER Tablet, [facility]/pharmacy #0315, 1 tablet By Mouth Every 24 hours, 176.5, cm, 03/21/20 8:21:00 EDT, Height, 83.4, kg, 11/02/18 13:42:00 EST, Dry Weight Start Date: 03/21/20 Status: Ordered Flonase 50 mcg/inh nasal spray 1 sprays, Nares, Both, 2 times a day, # 16 Gm, 0 Refills, Maintenance, 10/10/19 11:35:05 EST, [place], 1 sprays Nares, Both 2 times a [...] 3 Refills, Maintenance, 12/17/19 11:48:00 EST, Tablet, [facility]/pharmacy #[id number], Rx resent from 11/03/16., 176.5, cm, 12/17/19 11:35:00 EST, Height, 83.4, kg, 11/02/18 13:42:00 EST, Dry Weight Start Date: 12/17/19 Status: Ordered LORazepam 2 mg oral tablet 1 tablet = 2 mg, By Mouth, 2 times a day, # 60 tablet, 0 Refills, Maintenance, 03/05/20 13:50:00 EDT, [facility]/pharmacy #[id number], 176.5, cm, 12/25/19 15:48:00 EST, Height, 83.4, kg, 11/02/18 13:42:00 EST, Dry Weight Start Date: 03/05/20 Status: Ordered metoprolol 25 mg oral tablet, extended release 25 mg, 1, tablet, By Mouth, Daily, # 90 tablet, Refills 3, Tot. Refills 3, Maintenance, 03/21/20 12:01:00 EDT, Route to Pharmacy Electronically, [facility]/pharmacy #0315, 176.5, cm, 03/21/20 8:21:00 EDT, Height, 83.4, kg, 11/02/18 13:42:00 EST, Dry Weight Start Date: 03/21/20 Status: Ordered omeprazole 20 mg oral delayed release tablet 1 tablet = 20 mg, By Mouth, Daily, # 90 tablet, 3 Refills, Maintenance, 12/17/19 11:48:00 EST, EC Tablet, [facility]/pharmacy #0315, 176.5, cm, 12/17/19 11:35:00 EST, Height, 83.4, kg, 11/02/18 13:42:00 EST, Dry Weight Start Date: 12/17/19 Status: Ordered tamsulosin 0.4 mg oral capsule 0.4 mg, By Mouth, Daily at bedtime, # 90 capsule, Refills 3, Tot. Refills 3, Maintenance, 12/17/19 11:48:00 EST, [id number] 176.5, cm, 12/17/19 11:35:00 [...] Active Anxiety(Confirmed) Active Aortic valve prosthesis pres [id number] TAVR 2017(Confirmed) 2, 3 Active Arteriosclerotic heart [...] 23 Active PAF (paroxysmal atrial fibri llation) [id number] 6(Confirmed) Active Pituitary microadenoma(Confi rmed) 24, 25, 26 Active Restless legs syndrome (RLS)(Confirmed) Active Thrombocytopenia(Confirmed) 27, 28 06/22/09 Active Tricuspid insufficiency(Confirmed) Active Trochanteric bursitis of rig ht hip(Confirmed) Active Type 2 diabetes with nephropathy(Confirmed) Active Type 2 diabetes mellitus wit h peripheral angiopathy(Confirmed) Active 1educated about use epi pen /when call 2[employer] VALVE [facility] 19019 41 graft 5CABG 2002 6Dr nini addressing 7nephrolithiasis 8to workup 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 12urology addressing [id number] 14ortho 15chronic 16RFA 17djd xray 2-015 18xray [...] inical Service Informant Depression, major Discharge Diagnosis 03/14/20 Social History Social History Type Response Smoking Status Former smoker, quit more than 30 days ago entered on: 03/01/19 Sex
--- OUTSIDE RECORDS SUMMARY | 2023-10-05 09:47 | XMS_ITS | Continuity of Care Document ---
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 Name Role Phone Michael Zafar MD Primary Care Physician Encounter [facility] Date(s): 01/06/22 - 04/17/22 [facility] [address] [place] [id number]- Attending Physician: Jannette Perdue NP Admitting Physician: Iron BROWN, Jannette Referring Physician: Michael Zafar MD Allergies, Adverse Reactions, Alerts Substance Reaction Severity Status lisinopril 1, 2 Active Bee Stings Active Welchol muscle and joint aches Activ e gabapentin unknown Active carvedilol 3 Active citalopram dizzy Active Percocet vomiting Active Effexor dizziness Active Remeron 4 dizziness Active FLUoxetine dizziness Active traZODone Active Lactose 5, 6 diarrhea Active Percocet 5/325 7 Active 1cough 2possible 3blurred vision 4nightmares 5Patient [...] Pneumococcal Vaccine (oldterm) 11/07/98 Given 1Result Comment: [facility]# [address] [phone] 2Location History: [place] 3Resconstance Comment: [06/30/2017] HIGH DOSE RECIEVED AT [facility] 4Rrenée Comment: [08/12/2015] Received at [facility] 5Result Comment: Pfizer right deltoid lot [id number] exp 06-06-2021 [facility] 6Admin Note: GIVEN IN CLINIC SHAM 7Admin Note: given in clinic 8Admin Note: historical data Medications acetaminophen 325 mg oral tablet 650 mg, By Mouth, Every 4 hours, PRN, Refills 0, Maintenance, Pain , Mild, 11/10/18 15:51:53 EST Start Date: 11/10/18 Status: Ordered allopurinol 100 mg oral tablet 200 mg, 2, tablet, By Mouth, Daily, # 90 tablet, Refills 0, Tot. Refills 0, Maintenance, 03/24/22 10:26:00 EDT, Route to Pharmacy Electronically, [facility], 175, cm, 03/05/22 11:48:00 EDT, Height, 84.1, kg, 06/07/21 4:26:00 EDT,... Start Date: 03/24/22 Status: Ordered amLODIPine 5 mg oral tablet 1 tablet, By Mouth, Daily, # 90 tablet, 1 Refills, [facility], 175, cm, 02/09/22 10:10:00 EDT, Height, [...] 90 tablet, 1 Refills, 09/01/21 11:50:00 EDT, [facility], 175, cm, 08/12/21 15:35:00 EDT, Height, 84.1, kg, 06/07/21 4:26:00 EDT, Dry Weight Start Date: 09/01/21 Status: Ordered Eliquis 2.5 mg oral tablet 1 tablet, By Mouth, 2 times a day, # 180 tablet, 9 Refills, [facility], 175, cm, 02/09/22 10:10:00 EDT, Height, 84.1, kg, 06/07/21 4:26:00 EDT, Dry Weight Start Date: 02/10/22 Status: Ordered LORazepam 1 mg oral tablet 1 tablet = 1 mg, By Mouth, Daily at bedtime, to fill on Monday 03/26 before weekend, # 30 tablet, 0 Refills, Maintenance, 03/22/22 13:17:00 EDT, [facility], 175, cm, 03/05/22 11:48:00 EDT, Height, 84.1, kg, 06/07/21 4:26:00 EDT, Start Date: 03/22/22 Status: Ordered magnesium oxide 400 mg oral tablet 1 tablet, By Mouth, Daily, # 90 tablet, 1 Refills, [facility], 175, cm, 02/09/22 10:10:00 EDT, Height, 84.1, kg, 06/07/21 4:26:00 EDT, Dry Weight Start Date: 02/10/22 Status: Ordered melatonin 5 mg oral tablet By Mouth, Daily at bedtime, 0 Refills, Maintenance, 08/08/20 9:44:00 EDT, Tablet Start Date: 08/08/20 Status: Ordered nystatin topical 803931 u/gm powder 1 application, Topically, 2 times a day, # 60 Gm, 5 Refills, Maintenance, 01/14/22 10:20:00 EST, Powder, [facility], Partial fill upon patient request if the prescription is for a schedule II opioid drug., 1 application Topically... Start Date: 01/14/22 Status: Ordered omeprazole 20 mg oral enteric coated capsule 1 capsule, By Mouth, Daily, # 90 capsule, 0 Refills, [facility], 175, cm, 02/09/22 10:10:00 EDT, Height, 84.1, kg, 06/07/21 4:26:00 EDT, Dry Weight Start Date: 02/10/22 Status: Ordered tamsulosin 0.4 mg oral capsule 1, capsule, By Mouth, Daily at bedtime, # 90 capsule, Refills 0, Route to Pharmacy Electronically, [facility], 175, cm, 02/09/22 10:10:00 EDT, Height, 84.1, kg, 06/07/21 4:26:00 EDT, Dry Weight Start Date: 02/12/22 Status: Ordered thiamine 100 mg oral tablet 100 mg, 1, tablet, By Mouth, Daily, # 30 tablet, Refills 11, Tot. 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 12giardiam,o/p ,culture neg 13normal IGA/TTG 14workup 15urology addressing [id number] 17ortho 18chronic 19RFA 20djd xray 2-015 21xray [...]
--- OUTSIDE RECORDS SUMMARY | 2023-10-05 09:47 | XMS_ITS | Continuity of Care Document ---
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 Name Role Phone Ju BROWN, Giovana Chiu Primary Care Physician Encounter [facility] [facility] Date(s): 09/29/22 - 11/19/22 [facility] [address] [place] [address]- Attending Physician: Giovana Dodd NP Referring Physician: Charisma LENZ, Michael Boston Allergies, Adverse Reactions, Alerts Substance Reaction Severity [...] Vaccine Date Status Refusal Reason SARS-CoV-2 mRNA ([id number]) vax 1 04/29/22 Given influenza virus vaccine, [...] Pneumococcal Vaccine (oldterm) 11/07/98 Given 1Result Comment: [facility]-[id number] 2Result Comment: [facility]# [address] [phone] 3Location History: [place] 4Resconstance Comment: [06/30/2017] HIGH DOSE RECIEVED AT [facility] 5Resconstance Comment: [08/12/2015] [place] [facility] 6Result Comment: Pfizer right deltoid lot [id number] exp 06-06-2021 [facility] 7Admin Note: GIVEN IN [...] 09/05/22 12:57:00 EDT, Route to Pharmacy Electronically, [facility], 175, cm, 07/22/22 14:43:00 EDT, Height, 84.1, kg, 06/07/21 4:26:00 EDT, Dry Weight Start Date: 09/05/22 Status: Ordered amLODIPine 5 mg oral tablet 1 tablet, By Mouth, Daily, # 90 tablet, 1 Refills, Maintenance, 08/07/22 10:52:00 EDT, [facility], 175, cm, 07/22/22 14:43:00 EDT, [...] 90 tablet, 1 Refills, 05/09/22 6:15:00 EDT, [facility], 175, cm, 04/29/22 10:58:00 EDT, Height, 84.1, kg, 06/07/21 4:26:00 EDT, Dry Weight Start Date: 05/09/22 Status: Ordered Eliquis 2.5 mg oral tablet 1 tablet, By Mouth, 2 times a day, # 180 tablet, 9 Refills, [facility], 175, cm, 02/09/22 10:10:00 EDT, Height, 84.1, kg, 06/07/21 4:26:00 EDT, Dry Weight Start Date: 02/10/22 Status: Ordered LORazepam 1 mg oral tablet 1 tablet = 1 mg, By Mouth, Daily at bedtime, 11/09 delivery Tuesday10/08/22, start taking Sat 10/09/22.12/10 delivery Tuesday11/08/2201/07 delivery Tuesday12/08/22, # 30 tablet, 2 Refills, Maintenance, 10/05/22 14:25:00 EST, [facility]... Start Date: 10/05/22 Status: Ordered magnesium oxide 400 mg oral tablet 1 tablet, By Mouth, Daily, # 90 tablet, 1 Refills, Maintenance, 08/09/22 9:27:00 EDT, [facility], 175, cm, 07/22/22 14:43:00 EDT, Height, 84.1, kg, 06/07/21 4:26:00 EDT, Dry Weight Start Date: 08/09/22 Status: Ordered magnesium oxide 400 mg oral tablet 1 tablet, By Mouth, Daily, # 90 tablet, 11 Refills, Maintenance, 08/09/22 9:27:00 EDT, [facility], 175, cm, 07/22/22 14:43:00 EDT, [...] Start Date: 05/05/22 Status: Ordered nystatin topical 509952 u/gm powder 1 application, Topically, 2 times a day, # 60 Gm, 5 Refills, Maintenance, 01/14/22 10:20:00 EST, Powder, [facility], Partial fill upon patient request if the prescription is for a schedule II opioid drug., 1 application Topically... Start Date: 01/14/22 Status: Ordered omeprazole 20 mg oral enteric coated capsule 1 capsule, By Mouth, Daily, # 90 capsule, 0 Refills, Maintenance, 08/07/22 10:53:00 EDT, [facility], 175, cm, 07/22/22 14:43:00 EDT, Height, 84.1, kg, 06/07/21 4:26:00 EDT, Dry Weight Start Date: 08/07/22 Status: Ordered tamsulosin 0.4 mg oral capsule 1, capsule, By Mouth, Daily at bedtime, # 90 capsule, Refills 1, Tot. Refills 1, 05/13/22 12:10:00 EDT, Route to Pharmacy Electronically, [facility], 175, cm, 05/12/22 13:46:00 EDT, [...] 08/09/22 9:27:00 EDT, Route to Pharmacy Electronically, [facility], 175, cm, 07/22/22 14:43:00 EDT, Height, 84.1, kg, 06/07/21 4:26:00 EDT, Dry Weight Start Date: 08/09/22 Status: Ordered Vitamin B1 100 mg oral tablet 1, tablet, By Mouth, Daily, # 30 tablet, Refills 11, Maintenance, 08/09/22 9:27:00 EDT, Route to Pharmacy Electronically, [facility], 175, cm, 07/22/22 14:43:00 EDT, [...] Active Anxiety Confirmed Active Aortic valve prosthesis [id number] TAVR 2017 2, 3 Confirmed Active Arteriosclerotic [...] TTG 2014 12, 13, 14 Confirmed Active CHF (congestive heart failure) systolic Confirmed Active Self-care deficit.team primary care physician Confirmed Active Encounter for monitoring long-term proton pump inhibitor therapy Confirmed Active Elevated PSA 15 Confirmed Active Impaired mobility and ADLs Confirmed Active Foot pain, bilateral Confirmed Active GERD EGD 2006y Confirmed Active [...] f/u cyysto 2021 advised re abn cytology 22, 23 Confirmed Active Mass of left parotid gland 1.[address] 2020 dec Confirmed 11/02/21 Active Mild mitral insufficiency Confirmed Active Nephrolithiasis Confirmed Active Knee osteoarthritis 24 Confirmed Active Wrist pain, chronic 25 Confirmed Active Breast pain, left refer breast center Confirmed 07/22/22 Active PAF (paroxysmal atrial fibrillation) [id number] 6 Confirmed Active Pituitary microadenoma 26, 27, [...] epi pen /when call 2[facility] 87169 41 graft 5CABG 2002 6Dr nini addressing 7nephrolithiasis 8to workup 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 12giardiam,o/p ,culture neg 13normal IGA/TTG 14workup 15urology addressing [id number] 17ortho 18chronic 19RFA 20djd xray 2-015 21xray [...] Team Personnel Name: Raina Westbrook RN Position: [facility] RN Member Role: Primary Care Nurse Name: Giovana Dodd NP Position: [facility] PCO Associate Professional Member Role: PCP Address: Address: [address] [place] [id number]- [place] Name: Adam Dennis MD Position: [facility] Cardiology MD Member Role: Lifetime Consulting Physician Address: Address: [address] [place] [address] [address] [place] [address]- Name: Jo Dillon RN Position: [facility] RN Member Role: Primary Care Nurse Name: Anh Pires RN Position: [facility] RN Member Role: Primary Care Nurse Name: Lonnie Puente Position: S RN Member Role: Primary Care Nurse Name: Julia Khan RN Position: S RN Member Role: Primary Care Nurse Name: Jaqueline Johnson RN Position: S RN Member Role: Primary Care Nurse Name: Kathy Garcia RN Position: [facility] RN Member Role: Primary Care Nurse Name: Viki Collazo RN Position: S RN Member Role: Primary Care Nurse Care Team Related Persons Name: SARWAT HENRIQUEZ Address: [address] [place] [address] Name: JOSEFINA CONTRERAS Address: [address] [place] [address]
--- OUTSIDE RECORDS SUMMARY | 2023-10-05 09:47 | XMS_ITS | Continuity of Care Document ---
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 Role Phone Charisma LENZ, Michael Boston Primary Care Physician Encounter [facility] Date(s): 04/02/22 - 05/02/22 [facility] [address] [place] [address]- Allergies, Adverse Reactions, Alerts Substance Reaction Severity [...] Vaccine Date Status Refusal Reason SARS-CoV-2 mRNA (imolefl-iusx-dtkui) vax 1 04/29/22 Given influenza virus vaccine, [...] Pneumococcal Vaccine (oldterm) 11/07/98 Given 1Result Comment: [facility]-[id number] 2Result Comment: [facility]# [address] [phone] 3Location History: [place] 4Result Comment: [06/30/2017] HIGH DOSE RECIEVED AT [facility] 5Resconstance Comment: [08/12/2015] Received at [facility] 6Result Comment: Pfizer right deltoid lot [id number] exp 06-06-2021 [facility] 7Admin Note: GIVEN IN CLINIC [facility] 8Admin [...] 03/24/22 10:26:00 EDT, Route to Pharmacy Electronically, [facility], 175, cm, 03/05/22 11:48:00 EDT, Height, 84.1, kg, 06/07/21 4:26:00 EDT,... Start Date: 03/24/22 Status: Ordered amLODIPine 5 mg oral tablet 1 tablet, By Mouth, Daily, # 90 tablet, 1 Refills, [facility], 175, [...] 90 tablet, 1 Refills, 09/01/21 11:50:00 EDT, [facility], 175, cm, 08/12/21 15:35:00 EDT, [...] weekend, # 30 tablet, 0 Refills, Maintenance, 04/22/22 13:24:00 EDT, [facility], 175, cm, 04/14/22 12:46:00 EDT, Height, 84.1, kg, 06/07/21 4:26:00 EDT, . Start Date: 04/22/22 Status: Ordered magnesium oxide 400 mg oral tablet 1 tablet, By Mouth, Daily, # 90 tablet, 1 Refills, [facility], 175, cm, 02/09/22 10:10:00 EDT, Height, 84.1, kg, 06/07/21 4:26:00 EDT, Dry Weight Start Date: 02/10/22 Status: Ordered melatonin 5 mg oral tablet By Mouth, Daily at bedtime, 0 Refills, Maintenance, 08/08/20 9:44:00 EDT, Tablet Start Date: 08/08/20 Status: Ordered nystatin topical [id number] u/gm powder 1 application, Topically, 2 times [...] Mouth, Daily, # 90 capsule, 0 Refills, [facility], 175, cm, 02/09/22 10:10:00 EDT, Height, 84.1, kg, 06/07/21 4:26:00 EDT, Dry Weight Start Date: 02/10/22 Status: Ordered sertraline 25 mg oral tablet 1 tablet = 25 mg, By Mouth, Daily, # 30 tablet, 4 Refills, Maintenance, 04/29/22 11:16:00 EDT, Tablet, [facility], Partial fill upon patient request if the prescription is for a schedule II opioid drug., 175, cm, 04/29/22 10:58:00... Start Date: 04/29/22 Status: Ordered tamsulosin 0.4 mg oral capsule 1, capsule, By Mouth, Daily at bedtime, # 90 capsule, Refills 0, Route to Pharmacy Electronically, [facility], 175, cm, 02/09/22 10:10:00 EDT, Height, 84.1, kg, 06/07/21 4:26:00 EDT, Dry Weight Start Date: 02/12/22 Status: Ordered thiamine 100 mg oral tablet 100 mg, 1, tablet, By Mouth, Daily, # 30 tablet, Refills 11, Tot. Refills 11, Maintenance, 10/05/2116:07:00 EST, Route to Pharmacy Electronically, [facility], 175, cm, 09/23/21 12:36:00 EST, [...] Active Anxiety(Confirmed) Active Aortic valve prosthesis pres [id number] TAVR 2017(Confirmed) 2, 3 Active Arteriosclerotic heart [...] 25 Active PAF (paroxysmal atrial fibri llation) [id number] 6(Confirmed) Active 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 12giardiam,o/p ,culture neg 13normal IGA/TTG 14workup 15urology addressing [id number] 17ortho 18chronic 19RFA 20djd xray 2-015 21xray [...]
--- OUTSIDE RECORDS SUMMARY | 2023-10-05 09:47 | XMS_ITS | Continuity of Care Document ---
Author Name Unknown Organization [facility] Anders Bradley Tom lt Address [address] [place] [address]- Care Team Providers Care Director Religious Education Name Role Phone Leo Breen DO Primary Care Physician Encounter [facility] Date(s): 04/26/23 - 08/24/23 [facility] Adult [address] [place] [address]- Attending Physician: Ju BROWN, Giovana Chiu Referring Physician: Priscilla LENZ, Kevin You Allergies, Adverse Reactions, Alerts Substance Reaction Severity [...] vaccine, inactivated 11/27/10 Give n SARS-CoV-2 mRNA ([id number]) vax 6 04/29/22 Given SARS-CoV-2 (COVID-19) mRNA [...] Pneumococcal Vaccine (oldterm) 11/07/98 Given 1Result Comment: [id number] 2Result Comment: [facility]# [address] [phone] 3Location History: [place] 4Result Comment: [06/30/2017] HIGH DOSE RECIEVED AT [facility] 5Result Comment: [08/12/2015] [place] [facility] 6Result Comment: [facility]-[id number] 7Result Comment: Pfizer right deltoid lot [id number] exp 06-06-2021 [facility] 8Admin Note: GIVEN IN CLINIC SHAM 9Admin [...] 04/07/23 14:29:00 EDT, Route to Pharmacy Electronically, [facility], 175, cm, 03/16/23 12:17:00 EDT, Height, 84.1, kg, 06/07/21 4:26:00 EDT, Dry Weight Start Date: 04/07/23 Status: Ordered amLODIPine 5 mg oral tablet 1 tablet, By Mouth, Daily, # 90 tablet, 1 Refills, Maintenance, 07/05/23 13:28:00 EDT, [facility], 175, cm, 06/13/23 13:20:00 [...] tablet, 1 Refills, Maintenance, 05/13/23 10:04:00 EDT, [facility], 175, cm, 04/12/23 11:54:00 EDT, Height, 84.1, kg, 06/07/21 4:26:00 EDT, Dry Weight Start Date: 05/13/23 Status: Ordered Eliquis 2.5 mg oral tablet 1 tablet, By Mouth, 2 times a day, # 180 tablet, 9 Refills, 02/18/23 17:26:00 EDT, [facility], 175, cm, 01/24/23 11:05:00 [...] Replace Required Details, Route to Pharmacy Electronically, [facility], 175, cm, 06/13/23... Start Date: 06/17/23 Status: Ordered LORazepam 0.5 mg oral tablet See Instructions, take as directed altrating with 1mg dose, # 12 each, 1 Refills, Maintenance, 07/27/23 10:26:00 EDT, Tablet, [facility], starting to wean down Partial fill upon patient request if the prescription is for a schedul... Start Date: 07/27/23 Status: Ordered LORazepam 1 mg oral tablet 1 tablet = 1 mg, By Mouth, Daily at bedtime, PRN as needed for anxiety, taper as directed, # 30 tablet, 1 Refills, Maintenance, 06/16/23 8:19:00 EDT, [facility], 175, cm, 06/13/2313:20:00 EDT, Height Start Date: 06/16/23 Status: Ordered magnesium oxide 400 mg oral tablet 1 tablet, By Mouth, Daily, # 90 tablet, 11 Refills, Maintenance, 08/13/23 17:38:00 EDT, [facility], 175, cm, 08/12/23 11:45:00 EDT, Height Start Date: 08/13/23 Status: Ordered nystatin topical 727881 u/gm powder 1 application, Topically, 2 times a day, # 60 Gm, 1 Refills, Maintenance, 07/17/23 18:25:00 EDT, Powder, [facility], 1 application Topically 2 times a day, 175, cm, 06/13/23 13:20:00 EDT, Height Start Date: 07/17/23 Status: Ordered omeprazole 20 mg oral enteric coated capsule 1 capsule, By Mouth, Daily, # 90 capsule, 1 Refills, Maintenance, 06/13/23 13:22:00 EDT, [facility], 175, cm, 06/13/23 13:20:00 EDT, Height Start Date: 06/13/23 Status: Ordered tamsulosin 0.4 mg oral capsule 1, capsule, By Mouth, Daily at bedtime, # 90 capsule, Refills 1, Maintenance, 05/13/23 10:04:00 EDT, Route to Pharmacy Electronically, [facility], 175, cm, 04/12/23 11:54:00 EDT,Height, 84.1, kg, 06/07/21 4:26:00 EDT, Dry Weight Start Date: 05/13/23 Status: Ordered Vitamin B1 100 mg oral tablet 1, tablet, By Mouth, Daily, # 30 tablet, Refills 11, Maintenance, 08/13/23 17:38:00 EDT, Route to Pharmacy Electronically, [facility], 175, cm, 08/12/23 11:45:00 EDT, Height Start Date: 08/13/23 Status: Ordered Vitamin D3 2000 intl units oral capsule 1 capsule = 2,000 International_Units, By Mouth, Daily, # 30 capsule, 11 Refills, Maintenance Start Date: 01/25/13 Stop Date: 01/20/14 Status: Ordered Problem List Condition Confirmation Course Effective Dates Status H ealth Status Informant Adjustment disorder with depressed mood Confirmed Active Memory loss noemal b12,thiamine tsh Confirmed Active Anxiety Confirmed Active Aortic valve prosthesis [id number] TAVR 2017 1, 2 Confirmed Active Arteriosclerotic heart disease (ASHD) cabg 2002;x1 3, 4 Confirmed Active Weakness Confirmed Active Benign Essential Hypertension Confirmed Active [...] TTG 2014 11, 12, 13 Confirmed Active Decreased urine output Confirmed Active GERD Confirmed Active Chronic gout [...] Confirmed Active Mild mitral insufficiency Confirmed Active Neck pain Confirmed Active Nephrolithiasis Confirmed Active Knee osteoarthritis 22 Confirmed Active Breast pain, left refer breast center Confirmed 07/22/22 Active PAF (paroxysmal atrial fibrillation) [id number] 6 Confirmed Active 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 11giardiam,o/p ,culture neg 12normal IGA/TTG 13workup [id number] 15chronic 16RFA 17djd xray 2-015 18xray 2004 [...] Cigarettes; Type: Cigars entered on: 01/24/23 Sex Patient Care team information Care Team Personnel Name: Giovana Dodd NP Position: [facility] PCO Associate Professional Member Role: Lifetime Consulting Provider Address: Address: [address] [place] [id number]- Name: Adam Dennis MD Position: [facility] Cardiology MD Member Role: Lifetime Consulting Physician Address: Address: [address] [place] [address] [address] [place] [id number]- [place] Name: Julia Yu RN Position: [facility] RN Member Role: Primary Care Nurse Name: Jo Dillon RN Position: S RN Member Role: Primary Care Nurse Name: Anh Pires RN Position: S RN Member Role: Primary Care Nurse Name: Lonnie Puente RN Position: S RN Member Role: Primary Care Nurse Name: Jaqueline Johnson RN Position: [facility] RN Member Role: Primary Care Nurse Name: Deb Brito Position: [facility] Heel [employer]ber Member Role: Health Underwriter Name: Leo Breen DO Position: [facility] Physician - Primary Care Member Role: PCP Address: Address: [address] [place] [address]- Name: Vale CHUN, Viki Eduardo Position: [facility] RN Member Role: Primary Care Nurse Care Team Related Persons Name: SARWAT HENRIQUEZ Address: [address] [place] [address] Name: JOSEFINA CONTRERAS Address: home [address] [place] [address]
--- OUTSIDE RECORDS SUMMARY | 2023-10-05 09:47 | XMS_ITS | Continuity of Care Document ---
Author Name Unknown Organization [facility] Address [address] [place] [address]- Care Team Providers Care Hotbed Operator Name Role Phone Ju KEVIN, Giovana Chiu Primary Care Physician [phone] Encounter [facility] ACCT R [id number] Date(s): 01/04/23 - 02/03/23 [facility] [address] [place] [address]- Attending Physician: Ju Chavez Admitting Physician: AdmtrJu Referring Physician: AdmtrJu Allergies, Adverse Reactions, Alerts Substance Reaction Severity Status lisinopril 1, 2 Active Remeron 3 dizziness Active carvedilol 4 Active citalopram dizzy Active Percocet vomiting Active Effexor dizziness Active Bee Stings Active Welchol muscle and joint aches Activ e Lactose 5, 6 diarrhea Active FLUoxetine dizziness [...] vaccine, inactivated 11/27/10 Give n SARS-CoV-2 mRNA ([id number]) vax 5 04/29/22 Given SARS-CoV-2 (COVID-19) mRNA [...] Vaccine (oldterm) 11/07/98 Given 1Result Comment: [facility]# [address] [phone] 2Location History: [place] 3Resconstance Comment: [06/30/2017] HIGH DOSE RECIEVED AT [facility] 4Rrenée Comment: [08/12/2015] Received at [facility] 5Result Comment: [facility]-[id number] 6Result Comment: Pfizer right deltoid lot [id number] exp 06-06-2021 [facility] 7Admin Note: GIVEN IN CLINIC SHAM 8Admin [...] 09/05/22 12:57:00 EDT, Route to Pharmacy Electronically, [facility], 175, cm, 07/22/22 14:43:00 EDT, Height, 84.1, kg, 06/07/21 4:26:00 EDT, Dry Weight Start Date: 09/05/22 Status: Ordered amLODIPine 5 mg oral tablet 1 tablet, By Mouth, Daily, # 90 tablet, 1 Refills, Maintenance, 08/07/22 10:52:00 EDT, [facility], 175, cm, 07/22/22 14:43:00 EDT, Height, [...] 90 tablet, 1 Refills, 11/24/22 14:41:00 EST, [facility], 175, cm, 09/29/22 12:43:00 EST, Height, 84.1, kg, 06/07/21 4:26:00 EDT, Dry Weight Start Date: 11/24/22 Status: Ordered Eliquis 2.5 mg oral tablet 1 tablet, By Mouth, 2 times a day, # 180 tablet, 9 Refills, [facility], 175, cm, 02/09/22 10:10:00 EDT, Height, 84.1, kg, 06/07/21 4:26:00 EDT, Dry Weight Start Date: 02/10/22 Status: Ordered LORazepam 1 mg oral tablet 1 tablet = 1 mg, By Mouth, Daily at bedtime, 11/09 - 01/07/2312/10 delivery Tuesday02/04/23, start taking02/06/2301/07 - 03/08/23, # 30 tablet, 2 Refills, Maintenance, 11/24/22 14:36:00 EST, [facility], 175, cm, 09/29/22 12:43:00 EST... Start Date: 11/24/22 Status: Ordered magnesium oxide 400 mg oral tablet 1 tablet, By Mouth, Daily, # 90 tablet, 11 Refills, Maintenance, 10/03/22 9:27:00 EDT, [facility], 175, cm, 07/22/22 14:43:00 EDT, Height, 84.1, kg, 06/07/21 4:26:00 EDT, Dry Weight Start Date: 08/09/22 Status: Ordered Melatonin Daily at bedtime, 0 Refills, Maintenance, 01/24/23 11:27:00 EDT Start Date: 01/24/23 Status: Ordered nystatin topical 323467 u/gm powder 1 application, Topically, 2 times a day, # 60 Gm, 5 Refills, Maintenance, 01/14/22 10:20:00 EST, Powder, [facility], Partial fill upon patient request if the prescription is for a schedule II opioid drug., 1 application Topically... Start Date: 01/14/22 Status: Ordered omeprazole 20 mg oral enteric coated capsule 1 capsule, By Mouth, Daily, # 90 capsule, 0 Refills, Maintenance, 11/24/22 14:41:00 EST, [facility], 175, cm, 09/29/22 12:43:00 EST, Height, 84.1, kg, 06/07/21 4:26:00 EDT, Dry Weight Start Date: 11/24/22 Status: Ordered tamsulosin 0.4 mg oral capsule 1, capsule, By Mouth, Daily at bedtime, # 90 capsule, Refills 1, Tot. Refills 1, 11/24/22 14:41:00 EST, Route to Pharmacy Electronically, [facility], 175, cm, 09/29/22 12:43:00 EST, Height, 84.1, kg, 06/07/21 4:26:00 EDT, Dry Weight Start Date: 11/24/22 Status: Ordered Vitamin B1 100 mg oral tablet 1, tablet, By Mouth, Daily, # 30 tablet, Refills 11, Maintenance, 08/09/22 9:27:00 EDT, Route to Pharmacy Electronically, [facility], 175, cm, 07/22/22 14:43:00 EDT, Height, [...] Active Anxiety Confirmed Active Aortic valve prosthesis [id number] TAVR 2017 2, 3 Confirmed Active Arteriosclerotic [...] TTG 2014 12, 13, 14 Confirmed Active Elevated PSA 15 Confirmed Active Impaired mobility and ADLs Confirmed Active GERD Confirmed Active Chronic gout Confirmed 08/09/19 Active H/O endarterectomy RT 2009,left 2020 DEC Confirmed Active Hearing loss refer eval SEPT 2021 Confirmed Active S/P TAVR (transcatheter aortic valve replacement) Confirmed 11/09/18 Active Hx of CABG x 1;2002 16 Confirmed Active History of lacunar cerebrovascular accident MRI 2020 Confirmed Active Hyperlipidemia Confirmed Active Hypomagnesemia Confirmed Active Inguinal hernia;left [...] Confirmed 07/22/22 Active PAF (paroxysmal atrial fibrillation) [id number] 6 Confirmed Active Pituitary microadenoma 26, 27, 28 Confirmed Active Restless legs syndrome (RLS) Confirmed Active Thrombocytopenia hematology 2008 ? 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 12giardiam,o/p ,culture neg 13normal IGA/TTG 14workup 15urology addressing [id number] 17ortho 18chronic 19RFA 20djd xray 2-015 21xray [...] Care team information Care Team Personnel Name: Ju ENTERPRISE APPLICATIONS MANAGERGiovana Position: [facility] PCO Associate Professional Member Role: PCP Address: Address: [address] [place] [address]- Name: Adam Dennis MD Position: [facility] Cardiology MD Member Role: Lifetime Consulting Physician Address: Address: [address] [place] [address] [address] [place] [id number]- Name: Julia Yu RN Position: [facility] RN Member Role: Primary Care Nurse Name: Jo Dillon RN Position: [facility] RN Member Role: Primary Care Nurse [...] Team Related Persons Name: SARWAT HENRIQUEZ Address: [place] [address] Name: JOSEFINA CONTRERAS Address: home [address] [place] [address]
--- OUTSIDE RECORDS SUMMARY | 2023-10-05 09:47 | XMS_ITS | Continuity of Care Document ---
Author Name Unknown Organization [facility] Tom lt Address [address] [place] [address]- Care Team Providers Care Milk Bottler Name Role Phone Michael Zafar MD Primary Care Physician Encounter [facility] Date(s): 07/28/20 - 08/04/20 [facility] Adult [address] [place] [address]- [facility] Encounter Diagnosis Chronic diarrhea episodic normal IGA TTG 2015(Discharge Diagnosis) - 07/28/20 Chronic gout(Discharge Diagnosis) - 07/28/20 Attending Physician: Michael Zafar MD Allergies, Adverse Reactions, Alerts Substance Reaction Severity Status lisinopril 1, 2 Active gabapentin unknown Active carvedilol 3 Active Percocet vomiting Active Effexor dizziness Active Remeron 4 dizziness Active Welchol muscle and joint aches Activ e FLUoxetine dizziness Active Percocet 5/325 5 Active citalopram dizzy Active Bee Stings Active 1cough 2possible 3blurred vision 4nightmares 5Pt [...] 3Rrenée Comment: [06/30/2017] HIGH DOSE RECIEVED AT [facility] [address] Kaplan Comment: [08/12/2015] Received at [facility] 5Admin Note: given in clinic 6Admin Note: [...] 2 times a day, # 6 LOT [id number] EXP 2-, # 180 tablet, 0 Refills, Maintenance, 06/13/20 11:45:00 EDT, Dry Weight Start Date: 06/13/20 Status: Ordered apixaban 2.5 mg oral tablet 1 tablet = 2.5 mg, By Mouth, 2 times a day, # 180 tablet, 3 Refills, Maintenance, 03/05/20 13:50:00EDT, [facility]/pharmacy #[id number], 176.5, cm, 12/25/19 15:48:00 [...] Gm, 0 Refills, Maintenance, 10/10/19 11:35:05 EST, [place], 1 sprays Nares, Both 2 times a [...] 3 Refills, Maintenance, 12/17/19 11:48:00 EST, Tablet, [facility]/pharmacy #[id number], Rx resent from 11/03/16., 176.5, cm, 12/17/19 11:35:00 EST, Height, 83.4, kg, 11/02/18 13:42:00 EST, Dry Weight Start Date: 12/17/19 Status: Ordered LORazepam 2 mg oral tablet 1 tablet = 2 mg, By Mouth, 2 times a day, # 60 tablet, 0 Refills, Maintenance, 06/16/20 13:49:00 EDT, [facility]/pharmacy #[id number], 176.5, cm, 06/13/20 12:04:00 EDT, Height, 83.4, kg, 11/02/18 13:42:00 EST, Dry Weight Start Date: 06/16/20 Status: Ordered magnesium oxide 400 mg oral tablet 1 tablet = 400 mg, By Mouth, 2 times a day, # 60 tablet, 3 Refills, Maintenance, 06/16/20 11:54:00 EDT, [facility]/pharmacy #[id number], 176.5, cm, 06/13/20 12:04:00 EDT, Height, 83.4, kg, 11/02/18 13:42:00 EST, Dry Weight Start Date: 06/16/20 Status: Ordered metoprolol 25 mg oral tablet, extended release 25 mg, 1, tablet, By Mouth, Daily, # 90 tablet, Refills 3, Tot. Refills 3, Maintenance, 06/16/20 9:41:00 EDT, Route to Pharmacy Electronically, [facility]/pharmacy #[id number], succinate, 176.5, cm, 06/13/20 12:04:00 EDT, Height, 83.4, kg, 11/02/18 13:42:00 EST, D... Start Date: 06/16/20 Stop Date: 06/11/21 Status: Ordered omeprazole 20 mg oral delayed release tablet 1 tablet = 20 mg, By Mouth, Daily, # 90 tablet, 3 Refills, Maintenance, 12/17/19 11:48:00 EST, EC Tablet, [facility]/pharmacy #[id number], 176.5, cm, 12/17/19 11:35:00 EST, Height, 83.4, kg, 11/02/18 13:42:00 EST, Dry Weight Start Date: 12/17/19 Status: Ordered tamsulosin 0.4 mg oral capsule 0.4 mg, By Mouth, Daily at bedtime, # 90 capsule, Refills 3, Tot. Refills 3, Maintenance, 12/17/19 11:48:00 EST, Route to Pharmacy Electronically, [facility]/pharmacy #[id number], 176.5, cm, 12/17/19 11:35:00 [...] Active Anxiety(Confirmed) Active Aortic valve prosthesis pres [id number] TAVR 2017(Confirmed) 2, 3 Active Arteriosclerotic heart [...] 26 Active PAF (paroxysmal atrial fibri llation) [id number] 6(Confirmed) Active Pituitary microadenoma(Confi rmed) 27, 28, 29 Active Restless legs syndrome (RLS)(Confirmed) Active Thrombocytopenia(Confirmed) 30, 31 06/22/09 Active Tricuspid insufficiency(Confirmed) Active Trochanteric bursitis of rig ht hip(Confirmed) Active Type 2 diabetes with nephropathy(Confirmed) Active Type 2 diabetes mellitus wit h peripheral angiopathy(Confirmed) Active 1educated about use epi pen /when call 2CARPENTIER PERICARDIAL VALVE [facility] [address] 41 graft 5CABG 2002 6Dr nini addressing 7nephrolithiasis 8to workup 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 12giardiam,o/p ,culture neg 13normal IGA/TTG 14workup 15urology addressing [id number] 17ortho 18chronic 19RFA 20djd xray 2-015 21xray 2005 LS arthritis etc 22Zung=mod depression 23BCG 24carcinoma in situ 25saw ortho 26s aw ortho;injected SEVERE pain 27endocrinology addressing 28MRI pti ;refer endo 29mri c spine 2014 30per hematology ? 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;to follow 31workup in progress Diagnosis Diagnosis Type Effective Dates Health Status Cl inical Service Informant Chronic diarrhea episodic normal IGA TTG 2014 Discharge Diagnosis 07/28/20 Chronic gout Discharge Diagnosis 07/28/20 Vital Signs Most recent to oldest [Reference Range]: 1 Height 176.5 cm (07/28/20 4:16 PM) Social History Social History Type Response Smoking Status Former smoker, quit more than 30 days ago entered on: 03/01/19 Sex
--- OUTSIDE RECORDS SUMMARY | 2023-10-05 09:47 | XMS_ITS | Continuity of Care Document ---
Author Name Unknown Organization [facility] Tom lt Address [address] [place] [address]- Care Team Providers Care Batter Out Name Role Phone Charisma LENZ, Michael Boston Primary Care Physician Encounter [facility] Date(s): 06/16/20 - 07/16/20 [facility] Adult [address] [place] [address]- [facility] Allergies, Adverse Reactions, Alerts Substance Reaction Severity Status lisinopril 1, 2 Active gabapentin unknown Active carvedilol 3 Active citalopram dizzy Active Percocet vomiting Active Effexor dizziness Active Remeron 4 dizziness Active Bee Stings Active Welchol muscle and joint aches Activ e FLUoxetine dizziness Active Percocet 5/325 5 Active 1cough 2possible 3blurred vision 4nightmares 5Pt [...] 23-valent vaccine 01/18/11 Given Tet/Diphth/Acel, Pertussis (oldterm) 2/8/11 Give n Influenza Inactive (IM) (oldterm) 07/25/09 Given Influenza Inactive (IM) (oldterm) 5 08/13/08 Given Influenza Inactive (IM) (oldterm) 09/01/07 Given Zoster Vaccine Live 12/25/08 Given tetanus-diphtheria toxoids (Td) 6 02/03/01 Given Pneumococcal Vaccine (oldterm) 11/07/98 Given 1Admin Note: GIVEN IN CLINIC SHAM 2Location History: [place] 3Rrenée Comment: [06/30/2017] HIGH DOSE RECIEVED AT [facility] 4Rrenée Comment: [08/12/2015] Re[place] [facility] 5Admin Note: given in clinic 6Admin Note: [...] 2 times a day, # 6 LOT [id number] EXP 2, # 180 tablet, 0 Refills, Maintenance, 06/13/20 11:45:00 EDT, Dry Weight Start Date: 06/13/20 Status: Ordered apixaban 2.5 mg oral tablet 1 tablet = 2.5 mg, By Mouth, 2 times a day, # 180 tablet, 3 Refills, Maintenance, 03/05/20 13:50:00EDT, [facility]/pharmacy #[id number], 176.5, cm, 12/25/19 15:48:00 EST, [...] Gm, 0 Refills, Maintenance, 10/10/19 11:35:05 EST, Leopold, 1 sprays Nares, Both 2 times a [...] Electronically, [facility]/... Start Date: 12/17/19 Status: Ordered LIDODERM PATCH [...] 3 Refills, Maintenance, 12/17/19 11:48:00 EST, Tablet, [facility]/pharmacy #[id number], Rx resent from 11/03/16., 176.5, cm, 12/17/19 11:35:00 EST, Height, 83.4, kg, 11/02/18 13:42:00 EST, Dry Weight Start Date: 12/17/19 Status: Ordered LORazepam 2 mg oral tablet 1 tablet = 2 mg, By Mouth, 2 times a day, # 60 tablet, 0 Refills, Maintenance, 06/16/20 13:49:00 EDT, [facility]/pharmacy #[id number], 176.5, cm, 06/13/20 12:04:00 EDT, Height, 83.4, kg, 11/02/18 13:42:00 EST, Dry Weight Start Date: 06/16/20 Status: Ordered magnesium oxide 400 mg oral tablet 1 tablet = 400 mg, By Mouth, 2 times a day, # 60 tablet, 3 Refills, Maintenance, 06/16/20 11:54:00 EDT, [facility]/pharmacy #[id number], 176.5, cm, 06/13/20 12:04:00 EDT, Height, 83.4, kg, 11/02/18 13:42:00 EST, Dry Weight Start Date: 06/16/20 Status: Ordered metoprolol 25 mg oral tablet, extended release 25 mg, 1, tablet, By Mouth, Daily, # 90 tablet, Refills 3, Tot. Refills 3, Maintenance, 06/16/20 9:41:00 EDT, Route to Pharmacy Electronically, [facility]/pharmacy #[id number], succinate, 176.5, cm, 06/13/20 12:04:00 EDT, Height, 83.4, kg, 11/02/18 13:42:00 EST, D... Start Date: 06/16/20 Stop Date: 06/11/21 Status: Ordered omeprazole 20 mg oral delayed release tablet 1 tablet = 20 mg, By Mouth, Daily, # 90 tablet, 3 Refills, Maintenance, 12/17/19 11:48:00 EST, EC Tablet, [facility]/pharmacy #[id number], 176.5, cm, 12/17/19 11:35:00 EST, Height, 83.4, kg, 11/02/18 13:42:00 EST, Dry Weight Start Date: 12/17/19 Status: Ordered tamsulosin 0.4 mg oral capsule 0.4 mg, By Mouth, Daily at bedtime, # 90 capsule, Refills 3, Tot. Refills 3, Maintenance, 12/17/19 11:48:00 EST, [id number] 176.5, cm, 12/17/19 11:35:00 EST, Height, [...] Active Anxiety(Confirmed) Active Aortic valve prosthesis pres [id number] TAVR 2017(Confirmed) 2, 3 Active Arteriosclerotic heart [...] 26 Active PAF (paroxysmal atrial fibri llation) [id number] 6(Confirmed) Active Pituitary microadenoma(Confi rmed) 27, 28, 29 Active Restless legs syndrome (RLS)(Confirmed) Active Thrombocytopenia(Confirmed) 30, 31 06/22/09 Active Tricuspid insufficiency(Confirmed) Active Trochanteric bursitis of rig ht hip(Confirmed) Active Type 2 diabetes with nephropathy(Confirmed) Active Type 2 diabetes mellitus wit h peripheral angiopathy(Confirmed) Active 1educated about use epi pen /when call 2[facility] PERICARDIAL VALVE [facility] [id number] 41 graft 5CABG 2002 6Dr nini addressing 7nephrolithiasis 8to workup 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 12giardiam,o/p ,culture neg 13normal IGA/TTG 14workup 15urology addressing [id number] 17ortho 18chronic 19RFA 20djd xray 2-015 21xray 2004 LS arthritis etc 22Zung=mod depression 23BCG 24carcinoma in situ 25saw ortho 26s aw ortho;injected SEVERE pain 27endocrinology addressing 28MRI pti ;refer endo 29mri c spine 2014 30per hematology ? 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;to follow 31workup in progress Social History Social History Type Response Smoking Status Former smoker, quit more than 30 days ago entered on: 03/01/19 Sex
--- OUTSIDE RECORDS SUMMARY | 2023-10-05 09:48 | XMS_ITS | Continuity of Care Document ---
Author Name Unknown Organization [facility] Address [address] [place] [address]- Care Team Providers Care Web Services Developer Name Role Phone Charisma LENZ, Michael Boston Primary Care Physician Encounter [facility] Date(s): 03/07/22 - 04/06/22 [facility] [address] [place] [address]- Allergies, Adverse Reactions, Alerts Substance Reaction Severity [...] Given 1Result Comment: [facility]# [address] [phone] 2Location History: [place] 3Resconstance Comment: [06/30/2017] HIGH DOSE RECIEVED AT [facility] 4Rrenée Comment: [08/12/2015] Received at [facility] [place] 5Result Comment: Pfizer right deltoid lot [id number] exp 06-06-2021 [facility] 6Admin Note: GIVEN IN CLINIC SHAM [...] 03/24/22 10:26:00 EDT, Route to Pharmacy Electronically, [facility], 175, cm, 03/05/22 11:48:00 EDT, Height, 84.1, kg, 06/07/21 4:26:00 EDT,... Start Date: 03/24/22 Status: Ordered amLODIPine 5 mg oral tablet 1 tablet, By Mouth, Daily, # 90 tablet, 1 Refills, [facility], 175, cm, 02/09/22 10:10:00 EDT, [...] 90 tablet, 1 Refills, 09/01/21 11:50:00 EDT, [facility], 175, cm, 08/12/21 15:35:00 EDT, Height, 84.1, kg, 06/07/21 4:26:00 EDT, Dry Weight Start Date: 09/01/21 Status: Ordered Eliquis 2.5 mg oral tablet 1 tablet, By Mouth, 2 times a day, # 180 tablet, 9 Refills, [facility], 175, cm, 02/09/22 10:10:00 EDT, Height, 84.1, kg, 06/07/21 4:26:00 EDT, Dry Weight Start Date: 02/10/22 Status: Ordered LORazepam 1 mg oral tablet 1 tablet = 1 mg, By Mouth, Daily at bedtime, to fill on Monday 03/26 before weekend, # 30 tablet, 0 Refills, Maintenance, 03/22/22 13:17:00 EDT, [facility], 175, cm, 03/05/22 11:48:00 EDT, Height, 84.1, kg, 06/07/21 4:26:00 EDT, Start Date: 03/22/22 Status: Ordered magnesium oxide 400 mg oral tablet 1 tablet, By Mouth, Daily, # 90 tablet, 1 Refills, [facility], 175, cm, 02/09/22 10:10:00 EDT, Height, 84.1, kg, 06/07/21 4:26:00 EDT, Dry Weight Start Date: 02/10/22 Status: Ordered melatonin 5 mg oral tablet By Mouth, Daily at bedtime, 0 Refills, Maintenance, 08/08/20 9:44:00 EDT, Tablet Start Date: 08/08/20 Status: Ordered nystatin topical [id number] u/gm powder 1 application, Topically, 2 times a day, # 60 Gm, 5 Refills, Maintenance, 01/14/22 10:20:00 EST, Powder, [facility], Partial fill upon patient request if the prescription is for a schedule II opioid drug., 1 application Topically... Start Date: 01/14/22 Status: Ordered omeprazole 20 mg oral enteric coated capsule 1 capsule, By Mouth, Daily, # 90 capsule, 0 Refills, [facility], 175, cm, 02/09/22 10:10:00 EDT, Height, 84.1, kg, 06/07/21 4:26:00 EDT, Dry Weight Start Date: 02/10/22 Status: Ordered tamsulosin 0.4 mg oral capsule 1, capsule, By Mouth, Daily at bedtime, # 90 capsule, Refills 0, Route to Pharmacy Electronically, [facility], 175, cm, 02/09/22 10:10:00 EDT, Height, 84.1, kg, 06/07/21 4:26:00 EDT, Dry Weight Start Date: 02/12/22 Status: Ordered thiamine 100 mg oral tablet 100 mg, 1, tablet, By Mouth, Daily, # 30 tablet, Refills 11, Tot. Refills 11, Maintenance, 10/05/2116:07:00 EST, Route to Pharmacy Electronically, [facility], 175, cm, 09/23/21 12:36:00 EST, [...] Active Anxiety(Confirmed) Active Aortic valve prosthesis pres [id number] TAVR 2018(Confirmed) 2, 3 Active Arteriosclerotic heart disea se (ASHD) cabg 2003;x1(Confirmed) 4, 5 Active Benign Essential Hypertension(Confirmed) Active [...] 25 Active PAF (paroxysmal atrial fibri llation) [id number] 6(Confirmed) Active 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 12giardiam,o/p ,culture neg 13normal IGA/TTG 14workup 15urology addressing [id number] 17ortho 18chronic 19RFA 20djd xray 2-015 21xray [...]
--- OUTSIDE RECORDS SUMMARY | 2023-10-05 09:48 | XMS_ITS | Continuity of Care Document ---
Author Name Unknown Organization [facility] Tom [facility] Address [address] [place] [address]- Care Team Providers Care Network Services Project Manager Name Role Phone Michael Zafar MD Primary Care Physician [phone] Encounter [facility] R [id number] Date(s): 05/06/22 - 06/19/22 [facility] Adult [address] [place] [address]- Attending Physician: Not on Staff, Attending MD Referring Physician: Michael Zafar MD Allergies, Adverse Reactions, Alerts Substance Reaction Severity Status lisinopril 1, 2 Active gabapentin unknown Active carvedilol 3 Active citalopram dizzy Active Percocet vomiting Active Effexor dizziness Active Remeron 4 dizziness Active Bee Stings Active Welchol muscle and joint aches Activ e Lactose 5, 6 diarrhea Active FLUoxetine dizziness Active Percocet 5/325 7 Active traZODone Active 1cough 2possible 3blurred vision 4nightmares 5Patient states 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 6patient states he drinks milk all of the time 7Pt states the last time he hade it, 16 years ago, it made him vomit Immunizations Given and Recorded Vaccine Date Status Refusal Reason SARS-CoV-2 mRNA ([id number]) vax 1 04/29/22 Given influenza virus vaccine, [...] Pneumococcal Vaccine (oldterm) 11/07/98 Given 1Result Comment: [facility][id number] 2Result Comment: [facility]# [place] [address] [phone] 3Location History: [place] 4Resconstance Comment: [06/30/2017] HIGH DOSE RECIEVED AT [facility] 5Resconstance Comment: [08/12/2015] [place] [facility] 6Result Comment: Pfizer right deltoid lot [id number] exp 06-06-2021 [facility] 7Admin Note: GIVEN IN CLINIC SHAM [...] 06/03/22 11:47:00 EDT, Route to Pharmacy Electronically, [facility], 175, cm, 06/03/22 11:28:00 EDT, Height, 84.1, kg, 06/07/21 4:26:00 EDT,... Start Date: 06/03/22 Status: Ordered amLODIPine 5 mg oral tablet 1 tablet, By Mouth, Daily, # 90 tablet, 1 Refills, [facility], 175, cm, 02/09/22 10:10:00 [...] 90 tablet, 1 Refills, 05/09/22 6:15:00 EDT, [facility], 175, cm, 04/29/22 10:58:00 EDT, Height, 84.1, kg, 06/07/21 4:26:00 EDT, Dry Weight Start Date: 05/09/22 Status: Ordered Eliquis 2.5 mg oral tablet 1 tablet, By Mouth, 2 times a day, # 180 tablet, 9 Refills, [facility], 175, cm, 02/09/22 10:10:00 EDT, Height, 84.1, kg, 06/07/21 4:26:00 EDT, Dry Weight Start Date: 02/10/22 Status: Ordered LORazepam 1 mg oral tablet 1 tablet = 1 mg, By Mouth, Daily at bedtime, to fill on Friday 05/18, short supply provided in orderto get patient onto a weekday schedule, 28 day script to follow next month, # 26 tablet, 0 Refills,Maintenance, 06/08/22 15:46:00 EDT, [facility]... Start Date: 06/08/22 Status: Ordered magnesium oxide 400 mg oral tablet 1 tablet, By Mouth, Daily, # 90 tablet, 1 Refills, [facility], 175, cm, 02/09/22 10:10:00 [...] Start Date: 05/05/22 Status: Ordered nystatin topical [id number] u/gm powder 1 application, Topically, 2 times a day, # 60 Gm, 5 Refills, Maintenance, 01/14/22 10:20:00 EST, Powder, [facility], Partial fill upon patient request if the prescription is for a schedule II opioid drug., 1 application Topically... Start Date: 01/14/22 Status: Ordered omeprazole 20 mg oral enteric coated capsule 1 capsule, By Mouth, Daily, # 90 capsule, 0 Refills, 05/13/22 12:10:00 EDT, [facility], 175, cm, 05/12/22 13:46:00 EDT, Height, 84.1, kg, 06/07/21 4:26:00 EDT, Dry Weight Start Date: 05/13/22 Status: Ordered sertraline 50 mg oral tablet 1 tablet = 50 mg, By Mouth, Daily, # 90 tablet, 1 Refills, Maintenance, 06/10/22 17:09:00 EDT, Tablet, [facility], Partial fill upon patient request if the prescription is for a schedule II opioid drug., 175, cm, 06/04/22 11:38:00... Start Date: 06/10/22 Status: Ordered tamsulosin 0.4 mg oral capsule 1, capsule, By Mouth, Daily at bedtime, # 90 capsule, Refills 1, Tot. Refills 1, 05/13/22 12:10:00 EDT, Route to Pharmacy Electronically, [facility], 175, cm, 05/12/22 13:46:00 EDT, Height, 84.1, kg, 06/07/21 4:26:00 EDT, Dry Weight Start Date: 05/13/22 Status: Ordered thiamine 100 mg oral tablet 100 mg, 1, tablet, By Mouth, Daily, # 30 tablet, Refills 11, Tot. 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 12giardiam,o/p ,culture neg 13normal IGA/TTG 14workup 15urology addressing [id number] 17ortho 18chronic 19RFA 20djd xray 2-015 21xray [...]
--- OUTSIDE RECORDS SUMMARY | 2023-10-05 09:48 | XMS_ITS | Continuity of Care Document ---
Author Name Unknown Organization [facility] Tom [facility] Address [address] [place] [address]- Care Team Providers Care Hazardous Substances Scientist Name Role Phone Charisma LENZ, Michael Boston Primary Care Physician [phone] Encounter [facility] Date(s): 12/01/21 - 12/31/21 [facility] Adult [address] [place] [address]- Allergies, Adverse Reactions, Alerts Substance Reaction Severity [...] Vaccine (oldterm) 11/07/98 Given 1Result Comment: [facility]# [place] [address] [phone] 2Location History: [place] 3Result Comment: [06/30/2017] HIGH DOSE RECIEVED AT [facility] 4Rrenée Comment: [08/12/2015] [place] [facility] 5Result Comment: Pfizer right deltoid lot [id number] exp 06-06-2021 [facility] 6Admin Note: GIVEN IN CLINIC SHAM [...] 09/01/21 11:50:00 EDT, Route to Pharmacy Electronically, [facility], 175, cm, 08/12/21 15:35:00 EDT, Height, 84.1, kg, 06/07/21 4:26:00 EDT,... Start Date: 09/01/21 Status: Ordered amLODIPine 5 mg oral tablet See Instructions, 1/2 at night, # 45 each, Refills 1, Tot. Refills 1, Maintenance, 06/08/21 11:27:00 EDT, Instructions Replace Required Details, Route to Pharmacy Electronically, [facility]/pharmacy #[id number], 175, cm, 06/07/21 8:16:00 EDT, Height, [...] 90 tablet, 1 Refills, 09/01/21 11:50:00 EDT, [facility], 175, cm, 08/12/21 15:35:00 EDT, Height, 84.1, kg, 06/07/21 4:26:00 EDT, Dry Weight Start Date: 09/01/21 Status: Ordered Eliquis 2.5 mg oral tablet 1 tablet, By Mouth, 2 times a day, # 180 tablet, 3 Refills, Maintenance, 03/17/21 11:43:00 EDT, [id number], 175, cm, 02/06/21 10:40:00 EDT, Height, 79, kg, 11/26/20 11:00:00 EST, Dry Weight Start Date: 03/17/21 Status: Ordered Lasix 20 mg oral tablet See Instructions, 1 tablet By Mouth as needed for weight gain of 2lbs in a day or 5lbs in a week, #90 tablet, Refills 3, Tot. Refills 3, Maintenance, 12/17/19 11:49:00 EST, Instructions Replace Required Details, Route to Pharmacy Electronically, [facility]/... Start Date: 12/17/19 Status: Ordered LIDODERM [...] bedtime, # 30 tablet, 0 Refills, Maintenance, 12/30/21 16:06:00EST, [facility], 175, cm, 10/12/21 14:45:00 EST, Height, 84.1, kg, 06/07/21 4:26:00 EDT, Dry Weight Start Date: 12/30/21 Status: Ordered magnesium oxide 400 mg oral tablet 1 tablet = 400 mg, By Mouth, Daily, # 90 tablet, 3 Refills, Maintenance, 02/12/21 17:31:00 EDT, Tablet, [facility]/pharmacy #[id number], Partial fill upon patient request [...] 90 capsule, 0 Refills, 09/01/21 11:50:00 EDT, [facility], 175, cm, 08/12/21 15:35:00 EDT, Height, 84.1, kg, 06/07/21 4:26:00 EDT, Dry Weight Start Date: 09/01/21 Status: Ordered predniSONE 50 mg oral tablet 1 tablet = 50 mg, By Mouth, Daily, first dose tonight then take in morning with food or milk, # 4 tablet, 0 Refills, Maintenance, 12/31/21 16:26:00 EST, Tablet, [facility]/pharmacy #[id number], Partial fill upon patient request if the prescription is for a schedu... Start Date: 12/31/21 Status: Ordered tamsulosin 0.4 mg oral capsule 1, capsule, By Mouth, Daily at bedtime, # 90 capsule, Refills 1, Tot. Refills 0, Maintenance, 05/08/21 14:24:00 EDT, Route to Pharmacy Electronically, [id number], 175, cm, 04/29/21 10:36:00 EDT,Height, 79, kg, 11/26/20 11:00:00 EST, Dry Weight Start Date: 05/08/21 Status: Ordered thiamine 100 mg oral tablet 100 mg, 1, tablet, By Mouth, Daily, # 30 tablet, Refills 11, Tot. Refills 11, Maintenance, 10/05/2116:07:00 EST, Route to Pharmacy Electronically, [facility], 175, cm, 09/23/21 12:36:00 EST, [...] Active Anxiety(Confirmed) Active Aortic valve prosthesis pres [id number] TAVR 2017(Confirmed) 2, 3 Active Arteriosclerotic heart [...] 25 Active PAF (paroxysmal atrial fibri llation) [id number] 6(Confirmed) Active 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, 27, 28 Active Restless legs syndrome (RLS)(Confirmed) Active Thrombocytopenia(Confirmed) 29, 30 06/22/09 Active Tricuspid insufficiency(Confirmed) Active Trochanteric bursitis of rig ht hip(Confirmed) Active Type 2 diabetes with nephropathy(Confirmed) Active Type 2 diabetes mellitus wit h peripheral angiopathy(Confirmed) Active 1educated about use epi pen /when call 2[facility] PERICARDIAL VALVE [facility] 73229 41 graft 5CABG 2002 6Dr nini addressing 7nephrolithiasis 8to workup 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 12giardiam,o/p ,culture neg 13normal IGA/TTG 14workup 15urology addressing [id number] 17ortho 18chronic 19RFA 20djd xray 2-015 21xray [...]
--- OUTSIDE RECORDS SUMMARY | 2023-10-05 09:48 | XMS_ITS | Continuity of Care Document ---
Author Name Unknown Organization [facility] Address [address] [place] [id number]- Care Team Providers Care Script Reader Name Role Phone Michael Zafar MD Primary Care Physician Encounter [facility] Date(s): 02/26/22 - 06/26/22 [facility] [address] [place] [id number]- Attending Physician: Jeremiah Dugan MD Admitting Physician: [...] Vaccine Date Status Refusal Reason SARS-CoV-2 mRNA ([id number]-fjcsn) vax 1 04/29/22 Given influenza virus vaccine, [...] (oldterm) 11/07/98 Given 1Result Comment: [facility]-[id number] 2Result Comment: [facility]# ON [address] [phone] 3Location History: [place] 4Resconstance Comment: [06/30/2017] HIGH DOSE RECIEVED AT [facility] 5Resconstance Comment: [08/12/2015] Received at [facility] [place] 6Result Comment: Pfizer right deltoid lot [id number] exp 06-06-2021 [facility] 7Admin Note: GIVEN IN CLINIC SHAM [...] 06/03/22 11:47:00 EDT, Route to Pharmacy Electronically, [facility], 175, cm, 06/03/22 11:28:00 EDT, Height, 84.1, kg, 06/07/21 4:26:00 EDT,... Start Date: 06/03/22 Status: Ordered amLODIPine 5 mg oral tablet 1 tablet, By Mouth, Daily, # 90 tablet, 1 Refills, [facility], 175, cm, 02/09/22 10:10:00 [...] 90 tablet, 1 Refills, 05/09/22 6:15:00 EDT, [facility], 175, cm, 04/29/22 10:58:00 EDT, Height, 84.1, kg, 06/07/21 4:26:00 EDT, Dry Weight Start Date: 05/09/22 Status: Ordered Eliquis 2.5 mg oral tablet 1 tablet, By Mouth, 2 times a day, # 180 tablet, 9 Refills, [facility], 175, cm, 02/09/22 10:10:00 EDT, Height, 84.1, kg, 06/07/21 4:26:00 EDT, Dry Weight Start Date: 02/10/22 Status: Ordered LORazepam 1 mg oral tablet 1 tablet = 1 mg, By Mouth, Daily at bedtime, to fill on 07/15, 28 day script from here on out to keep patient on consistent weekday schedule, # 28 tablet, 0 Refills, Maintenance, 06/21/22 22:07:00 EDT, [facility], 175, cm,... Start Date: 06/21/22 Status: Ordered magnesium oxide 400 mg oral tablet 1 tablet, By Mouth, Daily, # 90 tablet, 1 Refills, [facility], 175, cm, 02/09/22 10:10:00 [...] Start Date: 05/05/22 Status: Ordered nystatin topical 198594 u/gm powder 1 application, Topically, 2 times a day, # 60 Gm, 5 Refills, Maintenance, 01/14/22 10:20:00 EST, Powder, [facility], Partial fill upon patient request if the prescription is for a schedule II opioid drug., 1 application Topically... Start Date: 01/14/22 Status: Ordered omeprazole 20 mg oral enteric coated capsule 1 capsule, By Mouth, Daily, # 90 capsule, 0 Refills, 05/13/22 12:10:00 EDT, [facility], 175, cm, 05/12/22 13:46:00 EDT, Height, 84.1, kg, 06/07/21 4:26:00 EDT, Dry Weight Start Date: 05/13/22 Status: Ordered sertraline 50 mg oral tablet 1 tablet = 50 mg, By Mouth, Daily, # 90 tablet, 1 Refills, Maintenance, 06/10/22 17:09:00 EDT, Tablet, [facility], Partial fill upon patient request if the prescription is for a schedule II opioid drug., 175, cm, 06/04/22 11:38:00... Start Date: 06/10/22 Status: Ordered tamsulosin 0.4 mg oral capsule 1, capsule, By Mouth, Daily at bedtime, # 90 capsule, Refills 1, Tot. Refills 1, 05/13/22 12:10:00 EDT, Route to Pharmacy Electronically, [facility], 175, cm, 05/12/22 13:46:00 EDT, Height, 84.1, kg, 06/07/21 4:26:00 EDT, Dry Weight Start Date: 05/13/22 Status: Ordered thiamine 100 mg oral tablet 100 mg, 1, tablet, By Mouth, Daily, # 30 tablet, Refills 11, Tot. 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 12giardiam,o/p ,culture neg 13normal IGA/TTG 14workup 15urology addressing [id number] 17ortho 18chronic 19RFA 20djd xray 2-015 21xray [...]
--- OUTSIDE RECORDS SUMMARY | 2023-10-05 09:48 | XMS_ITS | Continuity of Care Document ---
Author Name Unknown Organization [facility] Address [address] [place] [address]- Care Team Providers Care Camp Tender Name Role Phone Charisma LENZ, Michael Boston Primary Care Physician [phone] Encounter [facility] Date(s): 12/05/20 - 12/12/20 [facility] [address] [place] [address]- Encounter Diagnosis BPH without urinary obstruction(Discharge Diagnosis) - 12/05/20 Urinary retention(Discharge Diagnosis) - 12/05/20 Hematuria(Discharge Diagnosis) - 12/05/20 Bradycardia(Discharge Diagnosis) - 12/05/20 Chronic anticoagulation(Discharge Diagnosis) - 12/05/20 Chronic renal disease, stage 3, moderately decreased glomerular filtration rate (GFR) between 30-59mL/min/1.73 square meter(Discharge Diagnosis) - 12/05/20 Benign Essential Hypertension(Discharge Diagnosis) - 12/05/20 Cardiac pacemaker(Discharge Diagnosis) - 12/05/20 PAF (paroxysmal atrial fibrillation) [id number](Discharge Diagnosis) - 12/05/20 Attending Physician: Not on Staff, Attending MD Allergies, Adverse Reactions, Alerts Substance Reaction [...] Bradford Comment: [06/30/2017] HIGH DOSE RECIEVED AT [facility] DR Lucero Comment: [08/12/2015] Received at [facility] [place] 4Admin Note: GIVEN IN CLINIC SHAM 5Admin Note: [...] 10/20/20 11:45:00 EST, Route to Pharmacy Electronically, [facility]/pharmacy #[id number], 175, cm, 10/20/20 11:12:00 EST, Height, 80.6, kg, 08/05/20 17:31:00 EDT, Dry Weight Start Date: 10/20/20 Status: Ordered amLODIPine 5 mg oral tablet 5 mg, 1, tablet, By Mouth, Daily, # 30 tablet, Refills 3, Tot. Refills 3, Maintenance, 12/05/20 9:44:00 EST, Route to Pharmacy Electronically, [facility]/pharmacy #[id number], 175, cm, 12/05/20 8:32:00 EST, Height, 79, kg, 11/26/20 11:00:00 EST, Dry Weight Start Date: 12/05/20 Status: Ordered apixaban 2.5 mg oral tablet 1 tablet = 2.5 mg, By Mouth, 2 times a day, # 180 tablet, 3 Refills, Maintenance, 03/05/20 13:50:00EDT, [facility]/pharmacy #[id number], 176.5, cm, 12/25/19 15:48:00 EST, Height, [...] Replace Required Details, Route to Pharmacy Electronically, [facility]/... Start Date: 12/17/19 Status: Ordered LIDODERM PATCH [...] 3 Refills, Maintenance, 12/17/19 11:48:00 EST, Tablet, [facility]/pharmacy #[id number], Rx resent from 11/03/16., 176.5, cm, 12/17/19 11:35:00 EST, Height, 83.4, kg, 11/02/18 13:42:00 EST, Dry Weight Start Date: 12/17/19 Status: Ordered LORazepam 1 mg oral tablet 1 tablet = 1 mg, By Mouth, Daily at bedtime, # 30 tablet, 0 Refills, Maintenance, 12/09/20 10:18:00EST, [facility]/pharmacy #[id number], 175, cm, 12/05/20 8:32:00 EST, Height, [...] Refills, Maintenance, 12/17/19 11:48:00 EST, EC Tablet, [facility]/pharmacy #[id number], 176.5, cm, 12/17/19 11:35:00 EST, Height, 83.4, kg, 11/02/18 13:42:00 EST, Dry Weight Start Date: 12/17/19 Status: Ordered tamsulosin 0.4 mg oral capsule 0.4 mg, By Mouth, Daily at bedtime, # 90 capsule, Refills 3, Tot. Refills 3, Maintenance, 12/17/19 11:48:00 EST, Route to Pharmacy Electronically, [facility]/pharmacy #[id number], 176.5, cm, 12/17/19 11:35:00 EST, Height, 83.4, kg, 11/02/18 13:42:00 EST, Dry Weight Start Date: 12/17/19 Status: Ordered thiamine 100 mg oral tablet 100 mg, 1, tablet, By Mouth, Daily, # 30 tablet, Refills 11, Tot. Refills 11, Maintenance, 09/08/2013:24:00 EST, Route to Pharmacy Electronically, [facility]/pharmacy #[id number], 175, cm, 09/08/20 12:47:00 [...] Active Anxiety(Confirmed) Active Aortic valve prosthesis pres [id number] TAVR 2017(Confirmed) 2, 3 Active Arteriosclerotic heart [...] 25 Active PAF (paroxysmal atrial fibri llation) [id number] 6(Confirmed) Active 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, 27, 28 Active Restless legs syndrome (RLS)(Confirmed) Active Thrombocytopenia(Confirmed) 29, 30 06/22/09 Active Tricuspid insufficiency(Confirmed) Active Trochanteric bursitis of rig ht hip(Confirmed) Active Type 2 diabetes with nephropathy(Confirmed) Active Type 2 diabetes mellitus wit h peripheral angiopathy(Confirmed) Active 1educated about use epi pen /when call 2[facility] PERICARDIAL VALVE [facility] 34755 41 graft 5CABG 2002 6Dr nini addressing 7nephrolithiasis 8to workup 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 12giardiam,o/p ,culture neg 13normal IGA/TTG 14workup 15urology addressing [id number] 17ortho 18chronic 19RFA 20djd xray 2-015 21xray 2004 LS arthritis etc 22BCG 23carcinoma in situ 24saw ortho 25s aw ortho;injected SEVERE pain 26endocrinology addressing 27MRI pti ;refer endo 28mri c spine 2014 29per hematology ? 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 obstruction Discharge Diagnosis 12/05/20 Urinary retention Discharge Diagnosis 12/05/20 Hematuria Discharge Diagnosis 12/05/20 Bradycardia Discharge Diagnosis 12/05/20 Cardiac pacemaker Discharge Diagnosis 12/05/20 Benign Essential Hypertension Discharge Diagnosis 12/05/20 Chronic anticoagulation Discharge Diagnosis 12/05/20 Chronic renal disease, stage 3, moderately decreased glomerular filtration rate (GFR) between 30-59 mL/min/1.73 square meter Discharge Diagnosis 12/05/20 PAF (paroxysmal atrial fibrillation) [id number] 6 Discharge Diagnosis 12/05/20 Vital Signs Most recent to oldest [Reference Range]: 1 Height 175 cm (12/05/20 8:32 AM) Social History Social History Type Response Smoking Status Former smoker, quit more than 30 days ago entered on: 03/01/19 Sex
--- OUTSIDE RECORDS SUMMARY | 2023-10-05 09:48 | XMS_ITS | Continuity of Care Document ---
Author Name Unknown Organization [facility] Address [address] [place] [address]- Care Team Providers Care Feather Shaper Name Role Phone Charisma LENZ, Michael Boston Primary Care Physician [phone] Encounter [facility] Date(s): 10/23/21 - 11/22/21 [facility] [place] operated [facility] Adult [address] [place] [address]- Allergies, Adverse Reactions, Alerts Substance Reaction Severity [...] [facility] [place]# [address] [phone] 2Location History: [place] 3Result Comment: [06/30/2017] HIGH DOSE RECIEVED AT [facility] 4Rrenée Comment: [08/12/2015] Received at [facility] 5Result Comment: Pfizer right deltoid lot [id number] exp 06-06-2021 [facility] 6Admin Note: GIVEN IN CLINIC SHAM [...] 09/01/21 11:50:00 EDT, Route to Pharmacy Electronically, [facility], 175, cm, 08/12/21 15:35:00 EDT, Height, 84.1, kg, 06/07/21 4:26:00 EDT,... Start Date: 09/01/21 Status: Ordered amLODIPine 5 mg oral tablet See Instructions, 1/2 at night, # 45 each, Refills 1, Tot. Refills 1, Maintenance, 06/08/21 11:27:00 EDT, Instructions Replace Required Details, Route to Pharmacy Electronically, [facility]/pharmacy #[id number], 175, cm, 06/07/21 8:16:00 EDT, Height, [...] 90 tablet, 1 Refills, 09/01/21 11:50:00 EDT, [facility], 175, cm, 08/12/21 15:35:00 EDT, Height, 84.1, kg, 06/07/21 4:26:00 EDT, Dry Weight Start Date: 09/01/21 Status: Ordered Eliquis 2.5 mg oral tablet 1 tablet, By Mouth, 2 times a day, # 180 tablet, 3 Refills, Maintenance, 03/17/21 11:43:00 EDT, [id number], 175, cm, 02/06/21 10:40:00 EDT, Height, 79, [...] 30 tablet, 0 Refills, Maintenance, 10/05/21 16:08:00EST, [facility], 175, cm, 09/23/21 12:36:00 EST, Height, 84.1, kg, 06/07/21 4:26:00 EDT, Dry Weight Start Date: 10/05/21 Status: Ordered magnesium oxide 400 mg oral tablet 1 tablet = 400 mg, By Mouth, Daily, # 90 tablet, 3 Refills, Maintenance, 02/12/21 17:31:00 EDT, Tablet, [facility]/pharmacy #[id number], Partial fill upon patient request if [...] 90 capsule, 0 Refills, 09/01/21 11:50:00 EDT, [facility], 175, cm, 08/12/21 15:35:00 EDT, Height, 84.1, kg, 06/07/21 4:26:00 EDT, Dry Weight Start Date: 09/01/21 Status: Ordered predniSONE 50 mg oral tablet 1 tablet = 50 mg, By Mouth, Daily, in am with food, # 3 tablet, 0 Refills, Maintenance, 10/12/21 15:26:00 EST, Tablet, [facility]/pharmacy #[id number], Partial fill upon patient request if the prescription is fora schedule II opioid drug., 175, cm, 10/12/21 14:45... Start Date: 10/12/21 Status: Ordered tamsulosin 0.4 mg oral capsule 1, capsule, By Mouth, Daily at bedtime, # 90 capsule, Refills 1, Tot. Refills 0, Maintenance, 05/08/21 14:24:00 EDT, Route to Pharmacy Electronically, [facility], 175, cm, 04/29/21 10:36:00 EDT,Height, 79, kg, 11/26/20 11:00:00 EST, Dry Weight Start Date: 05/08/21 Status: Ordered thiamine 100 mg oral tablet 100 mg, 1, tablet, By Mouth, Daily, # 30 tablet, Refills 11, Tot. Refills 11, Maintenance, 10/05/2116:07:00 EST, Route to Pharmacy Electronically, [facility], 175, cm, 09/23/21 12:36:00 EST, [...] Active Anxiety(Confirmed) Active Aortic valve prosthesis pres [id number] TAVR 2017(Confirmed) 2, 3 Active Arteriosclerotic heart [...] 25 Active PAF (paroxysmal atrial fibri llation) [id number] 6(Confirmed) Active 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, 27, 28 Active Restless legs syndrome (RLS)(Confirmed) Active Thrombocytopenia(Confirmed) 29, 30 06/22/09 Active Tricuspid insufficiency(Confirmed) Active Trochanteric bursitis of rig ht hip(Confirmed) Active Type 2 diabetes with nephropathy(Confirmed) Active Type 2 diabetes mellitus wit h peripheral angiopathy(Confirmed) Active 1educated about use epi pen /when call 2[place] [address] 41 graft 5CABG 2002 6Dr nini addressing 7nephrolithiasis 8to workup 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 12giardiam,o/p ,culture neg 13normal IGA/TTG 14workup 15urology addressing [id number] 17ortho 18chronic 19RFA 20djd xray 2-015 21xray 2004 LS arthritis etc 22BCG 23carcinoma in situ 24saw ortho 25s aw ortho;injected SEVERE pain 26endocrinology addressing 27MRI pti ;refer endo 28mri c spine 2015 29per hematology ? 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
--- OUTSIDE RECORDS SUMMARY | 2023-10-05 09:48 | XMS_ITS | Continuity of Care Document ---
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 Name Role Phone Charisma LENZ, Michael Boston Primary Care Physician [place] [facility] 11/05/21 - 12/05/21 [facility] [address] [place] [address]- Allergies, Adverse Reactions, Alerts Substance Reaction Severity [...] 11/07/98 Given 1Result Comment: [facility]# ON [address] [phone] 2Location History: [place] 3Result Comment: [06/30/2017] HIGH DOSE RECIEVED AT [facility] 4Rrenée Comment: [08/12/2015] Re[place] at [facility] [place] 5Result Comment: Pfizer right deltoid lot [id number] exp 06-06-2021 [facility] 6Admin Note: GIVEN IN CLINIC SHAM 7Admin [...] 09/01/21 11:50:00 EDT, Route to Pharmacy Electronically, [facility], 175, cm, 08/12/21 15:35:00 EDT, Height, 84.1, kg, 06/07/21 4:26:00 EDT,... Start Date: 09/01/21 Status: Ordered amLODIPine 5 mg oral tablet See Instructions, 1/2 at night, # 45 each, Refills 1, Tot. Refills 1, Maintenance, 06/08/21 11:27:00 EDT, Instructions Replace Required Details, Route to Pharmacy Electronically, [facility]/pharmacy #[id number], 175, cm, 06/07/21 8:16:00 EDT, [...] 90 tablet, 1 Refills, 09/01/21 11:50:00 EDT, [facility], 175, cm, 08/12/21 15:35:00 EDT, Height, 84.1, kg, 06/07/21 4:26:00 EDT, Dry Weight Start Date: 09/01/21 Status: Ordered Eliquis 2.5 mg oral tablet 1 tablet, By Mouth, 2 times a day, # 180 tablet, 3 Refills, Maintenance, 03/17/21 11:43:00 EDT, [facility], 175, cm, 02/06/21 10:40:00 EDT, Height, 79, [...] bedtime, # 30 tablet, 0 Refills, Maintenance, 12/03/21 12:37:00EST, [facility], 175, cm, 10/12/21 14:45:00 EST, Height, 84.1, kg, 06/07/21 4:26:00 EDT, Dry Weight Start Date: 12/03/21 Status: Ordered magnesium oxide 400 mg oral tablet 1 tablet = 400 mg, By Mouth, Daily, # 90 tablet, 3 Refills, Maintenance, 02/12/21 17:31:00 EDT, Tablet, [facility]/pharmacy #[id number], Partial fill upon patient request [...] 90 capsule, 0 Refills, 09/01/21 11:50:00 EDT, [facility], 175, cm, 08/12/21 15:35:00 EDT, Height, 84.1, kg, 06/07/21 4:26:00 EDT, Dry Weight Start Date: 09/01/21 Status: Ordered predniSONE 50 mg oral tablet 1 tablet = 50 mg, By Mouth, Daily, in am with food, # 3 tablet, 0 Refills, Maintenance, 10/12/21 15:26:00 EST, Tablet, [facility]/pharmacy #0315, Partial fill upon patient request if the prescription is fora schedule II opioid drug., 175, cm, 10/12/21 14:45... Start Date: 10/12/21 Status: Ordered tamsulosin 0.4 mg oral capsule 1, capsule, By Mouth, Daily at bedtime, # 90 capsule, Refills 1, Tot. Refills 0, Maintenance, 05/08/21 14:24:00 EDT, Route to Pharmacy Electronically, [facility], 175, cm, 04/29/21 10:36:00 EDT,Height, 79, kg, 11/26/20 11:00:00 EST, Dry Weight Start Date: 05/08/21 Status: Ordered thiamine 100 mg oral tablet 100 mg, 1, tablet, By Mouth, Daily, # 30 tablet, Refills 11, Tot. 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) 2, 3 Active Arteriosclerotic heart [...] 25 Active PAF (paroxysmal atrial fibri llation) [id number] 6(Confirmed) Active 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, 27, 28 Active Restless legs syndrome (RLS)(Confirmed) Active Thrombocytopenia(Confirmed) 29, 30 06/22/09 Active Tricuspid insufficiency(Confirmed) Active Trochanteric bursitis of rig ht hip(Confirmed) Active Type 2 diabetes with nephropathy(Confirmed) Active Type 2 diabetes mellitus wit h peripheral angiopathy(Confirmed) Active 1educated about use epi pen /when call 2[place] [address] 41 graft 5CABG 2002 6Dr nini addressing 7nephrolithiasis 8to workup 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 12giardiam,o/p ,culture neg 13normal IGA/TTG 14workup 15urology addressing [id number] 17ortho 18chronic 19RFA 20djd xray 2-015 21xray [...]
--- OUTSIDE RECORDS SUMMARY | 2023-10-05 09:48 | XMS_ITS | Continuity of Care Document ---
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 [place] Date(s): 11/03/21 - 12/03/21 [facility] [address] [place] [address]- Allergies, Adverse Reactions, Alerts Substance Reaction Severity Status lisinopril 1, 2 Active Remeron 3 dizziness Active gabapentin unknown Active carvedilol 4 Active citalopram dizzy Active Percocet vomiting Active Effexor dizziness Active Bee Stings Active Welchol muscle and joint aches Activ e Percocet 5/325 5 Active Lactose 6, 7 diarrhea Active FLUoxetine dizziness Active traZODone Active 1cough 2possible 3nightmares 4blurred vision 5Pt [...] Pneumococcal Vaccine (oldterm) 11/07/98 Given 1Result Comment: [facility]# [address] [id number] 2Location History: [place] 3Result Comment: [06/30/2017] HIGH DOSE RECIEVED AT [facility] 4Rrenée Comment: [08/12/2015] Received at [facility] [place] 5Result Comment: Pfizer right deltoid lot [id number] exp 06-06-2021 [facility] 6Admin [...] 09/01/21 11:50:00 EDT, Route to Pharmacy Electronically, [facility], 175, cm, 08/12/21 15:35:00 EDT, Height, 84.1, kg, 06/07/21 4:26:00 EDT,... Start Date: 09/01/21 Status: Ordered amLODIPine 5 mg oral tablet See Instructions, 1/2 at night, # 45 each, Refills 1, Tot. Refills 1, Maintenance, 06/08/21 11:27:00 EDT, Instructions Replace Required Details, Route to Pharmacy Electronically, [facility]/pharmacy #[id number], 175, cm, 06/07/21 8:16:00 [...] 90 tablet, 1 Refills, 09/01/21 11:50:00 EDT, [facility], 175, cm, 08/12/21 15:35:00 EDT, Height, 84.1, kg, 06/07/21 4:26:00 EDT, Dry Weight Start Date: 09/01/21 Status: Ordered Eliquis 2.5 mg oral tablet 1 tablet, By Mouth, 2 times a day, # 180 tablet, 3 Refills, Maintenance, 03/17/21 11:43:00 EDT, [id number], 175, cm, 02/06/21 10:40:00 EDT, Height, 79, [...] 30 tablet, 0 Refills, Maintenance, 12/03/21 12:37:00EST, [facility], 175, cm, 10/12/21 14:45:00 EST, Height, 84.1, kg, 06/07/21 4:26:00 EDT, Dry Weight Start Date: 12/03/21 Status: Ordered magnesium oxide 400 mg oral tablet 1 tablet = 400 mg, By Mouth, Daily, # 90 tablet, 3 Refills, Maintenance, 02/12/21 17:31:00 EDT, Tablet, [facility]/pharmacy #[id number], Partial fill upon patient [...] 90 capsule, 0 Refills, 09/01/21 11:50:00 EDT, [facility], 175, cm, 08/12/21 15:35:00 EDT, Height, 84.1, kg, 06/07/21 4:26:00 EDT, Dry Weight Start Date: 09/01/21 Status: Ordered predniSONE 50 mg oral tablet 1 tablet = 50 mg, By Mouth, Daily, in am with food, # 3 tablet, 0 Refills, Maintenance, 10/12/21 15:26:00 EST, Tablet, [facility]/pharmacy #[id number], Partial fill upon patient request if the prescription is fora schedule II opioid drug., 175, cm, 10/12/21 14:45... Start Date: 10/12/21 Status: Ordered tamsulosin 0.4 mg oral capsule 1, capsule, By Mouth, Daily at bedtime, # 90 capsule, Refills 1, Tot. Refills 0, Maintenance, 05/08/21 14:24:00 EDT, Route to Pharmacy Electronically, [id number], 175, cm, 04/29/21 10:36:00 EDT,Height, 79, kg, 11/26/20 11:00:00 EST, Dry Weight Start Date: 05/08/21 Status: Ordered thiamine 100 mg oral tablet 100 mg, 1, tablet, By Mouth, Daily, # 30 tablet, Refills 11, Tot. Refills 11, Maintenance, 10/05/2116:07:00 EST, Route to Pharmacy Electronically, [facility], 175, cm, 09/23/21 12:36:00 [...] Active Anxiety(Confirmed) Active Aortic valve prosthesis pres [id number] TAVR 2017(Confirmed) 2, 3 Active Arteriosclerotic heart [...] 25 Active PAF (paroxysmal atrial fibri llation) [id number] 6(Confirmed) Active 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, 27, 28 Active Restless legs syndrome (RLS)(Confirmed) Active Thrombocytopenia(Confirmed) 29, 30 06/22/09 Active Tricuspid insufficiency(Confirmed) Active Trochanteric bursitis of rig ht hip(Confirmed) Active Type 2 diabetes with nephropathy(Confirmed) Active Type 2 diabetes mellitus wit h peripheral angiopathy(Confirmed) Active 1educated about use epi pen /when call [place] [address] 41 graft 5CABG 2002 6Dr nini addressing 7nephrolithiasis 8to workup 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 12giardiam,o/p ,culture neg 13normal IGA/TTG 14workup 15urology addressing [id number] 17ortho 18chronic 19RFA 20djd xray 2-015 21xray [...]
--- OUTSIDE RECORDS SUMMARY | 2023-10-05 09:48 | XMS_ITS | Continuity of Care Document ---
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 Name Role Phone Michael Zafar MD Primary Care Physician [phone] Encounter [facility] [place] [place] Date(s): 11/20/21 - 03/20/22 [facility] [address] [place] [address]- Attending Physician: Jeremiah Dugan MD Admitting Physician: [...] Pneumococcal Vaccine (oldterm) 11/07/98 Given 1Result Comment: [facility]# [address] [phone] 2Location History: [place] 3Resconstance Comment: [06/30/2017] HIGH DOSE RECIEVED AT [facility] 4Rrenée Comment: [08/12/2015] [place] [facility] [place] 5[place] Comment: Pfizer right deltoid lot [id number] exp 06-06-2021 [facility] [...] 09/01/21 11:50:00 EDT, Route to Pharmacy Electronically, [facility], 175, cm, 08/12/21 15:35:00 EDT, Height, 84.1, kg, 06/07/21 4:26:00 EDT,... Start Date: 09/01/21 Status: Ordered amLODIPine 5 mg oral tablet 1 tablet, By Mouth, Daily, # 90 tablet, 1 Refills, [facility], 175, cm, 04/05/22 10:10:00 EDT, Height, 84.1, kg, 06/07/21 4:26:00 [...] 90 tablet, 1 Refills, 09/01/21 11:50:00 EDT, [facility], 175, cm, 08/12/21 15:35:00 EDT, Height, 84.1, kg, 06/07/21 4:26:00 EDT, Dry Weight Start Date: 09/01/21 Status: Ordered Eliquis 2.5 mg oral tablet 1 tablet, By Mouth, 2 times a day, # 180 tablet, 9 Refills, [facility], 175, cm, 02/09/22 10:10:00 EDT, Height, 84.1, kg, 06/07/21 4:26:00 EDT, Dry Weight Start Date: 02/10/22 Status: Ordered Lasix 20 mg oral tablet [...] bedtime, # 30 tablet, 0 Refills, Maintenance, 02/23/22 9:27:00 EDT, [facility], 175, cm, 02/09/22 10:10:00 EDT, Height, 84.1, kg, 06/07/21 4:26:00 EDT, Dry Weight Start Date: 02/23/22 Status: Ordered magnesium oxide 400 mg oral tablet 1 tablet, By Mouth, Daily, # 90 tablet, 1 Refills, [facility], 175, cm, 02/09/22 10:10:00 EDT, Height, 84.1, kg, 06/07/21 4:26:00 EDT, Dry Weight Start Date: 02/10/22 Status: Ordered melatonin 5 mg oral tablet By Mouth, Daily at bedtime, 0 Refills, Maintenance, 08/08/20 9:44:00 EDT, Tablet Start Date: 08/08/20 Status: Ordered nystatin topical 013099 u/gm powder 1 application, Topically, 2 times a day, # 60 Gm, 5 Refills, Maintenance, 01/14/22 10:20:00 EST, Powder, [facility], Partial fill upon patient request if the prescription is for a schedule II opioid drug., 1 application Topically... Start Date: 01/14/22 Status: Ordered omeprazole 20 mg oral enteric coated capsule 1 capsule, By Mouth, Daily, # 90 capsule, 0 Refills, [facility], 175, cm, 02/09/22 10:10:00 EDT, Height, 84.1, kg, 06/07/21 4:26:00 EDT, Dry Weight Start Date: 02/10/22 Status: Ordered tamsulosin 0.4 mg oral capsule 1, capsule, By Mouth, Daily at bedtime, # 90 capsule, Refills 0, Route to Pharmacy Electronically, [facility], 175, cm, 02/09/22 10:10:00 EDT, Height, 84.1, kg, 06/07/21 4:26:00 EDT, Dry Weight Start Date: 02/12/22 Status: Ordered thiamine 100 mg oral tablet 100 mg, 1, tablet, By Mouth, Daily, # 30 tablet, Refills 11, Tot. Refills 11, Maintenance, 10/05/2116:07:00 EST, Route to Pharmacy Electronically, [facility], 175, cm, 09/23/21 12:36:00 EST, [...] Active Anxiety(Confirmed) Active Aortic valve prosthesis pres [id number] TAVR 2017(Confirmed) 2, 3 Active Arteriosclerotic heart [...] 25 Active PAF (paroxysmal atrial fibri llation) [id number] 6(Confirmed) Active 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 immune(Confirmed) 29, 30 06/22/09 Active Tricuspid insufficiency(Confirmed) Active Trochanteric bursitis of rig ht hip(Confirmed) Active Type 2 diabetes with nephropathy(Confirmed) Active Type 2 diabetes mellitus wit h peripheral angiopathy(Confirmed) Active 1educated about use epi pen /when call 2[facility] [address] 41 graft 5CABG 2002 6Dr nini addressing 7nephrolithiasis 8to workup 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 12giardiam,o/p ,culture neg 13normal IGA/TTG 14workup 15urology addressing [id number] 17ortho 18chronic 19RFA 20djd xray 2-015 21xray [...]
--- OUTSIDE RECORDS SUMMARY | 2023-10-05 09:48 | XMS_ITS | Continuity of Care Document ---
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 Hand Engraver Name Role Phone Michael Zafar MD Primary Care Physician [phone] [place] [facility] [place]): 02/21/20 - 02/28/20 [facility] [address] [place] [address]- [place] Encounter Diagnosis Major depression(Discharge Diagnosis) - 02/21/20 Attending Physician: Michael Zafar MD Allergies, Adverse [...] Lucero Comment: [06/30/2017] HIGH DOSE RECIEVED AT [facility] 4Rrenée Comment: [08/12/2015] Received at [facility] [place] 5Admin Note: given in clinic 6Admin Note: [...] day, # 180 tablet, 3 Refills, Maintenance, 01/29/20 14:02:00EDT, [facility]/pharmacy #[id number], 176.5, cm, 12/25/19 15:48:00 EST, Height, 83.4, kg, 11/02/18 13:42:00 EST,Dry Weight Start Date: 01/29/20 Status: Ordered aspirin 81 mg oral tablet 1 tablet = 81 mg, By Mouth, Daily, # 90 tablet, 3 Refills, 1 tablet By Mouth Daily,x90 days Start Date: 10/26/13 Stop Date: 10/21/14 Status: Ordered Flonase 50 mcg/inh nasal spray 1 sprays, Nares, Both, 2 times a day, # 16 Gm, 0 Refills, Maintenance, 10/10/19 11:35:05 EST, [place], 1 sprays Nares, Both 2 times a [...] Replace Required Details, Route to Pharmacy Electronically, [facility]/... Start Date: 12/17/19 Status: Ordered LIDODERM PATCH [...] 3 Refills, Maintenance, 12/17/19 11:48:00 EST, Tablet, [facility]/pharmacy #[id number], Rx resent from 11/03/16., 176.5, cm, 12/17/19 11:35:00 EST, Height, 83.4, kg, 11/02/18 13:42:00 EST, Dry Weight Start Date: 12/17/19 Status: Ordered LORazepam 2 mg oral tablet 1 tablet = 2 mg, By Mouth, 2 times a day, # 60 tablet, 0 Refills, Maintenance, 01/29/20 16:54:00 EDT, [facility]/pharmacy #[id number], 176.5, cm, 12/25/19 15:48:00 EST, Height, 83.4, kg, 11/02/18 13:42:00 EST, Dry Weight Start Date: 01/29/20 Status: Ordered metoprolol 25 mg oral tablet 25 mg, 1, tablet, By Mouth, Daily, tartrate, # 90 tablet, Refills 3, Tot. Refills 3, Maintenance, 02/06/20 14:47:00 EDT, [id number] tartrate, 176.5, cm, 12/25/19 15:48:00 EST, Height, 83.4, kg, 11/02/18 13:42... Start Date: 02/06/20 Status: Ordered metoprolol 25 mg oral tablet 25 mg, 1, tablet, By Mouth, Daily, for 90 days, # 90 tablet, Refills 3, Tot. Refills 3, Hard Stop 10/30/20 12:58:00 EST, 11/05/19 12:58:00 EST, [id number], 176.5, cm, 10/23/19 15:57:00 EST, Height, 83.4, kg, 1... Start Date: 11/05/19 Stop Date: 10/30/20 Status: Ordered omeprazole 20 mg oral delayed release tablet 1 tablet = 20 mg, By Mouth, Daily, # 90 tablet, 3 Refills, Maintenance, 12/17/19 11:48:00 EST, EC Tablet[id number], 176.5, cm, 12/17/19 11:35:00 EST, Height, 83.4, kg, 11/02/18 13:42:00 EST, Dry Weight Start Date: 12/17/19 Status: Ordered tamsulosin 0.4 mg oral capsule 0.4 mg, By Mouth, Daily at bedtime, # 90 capsule, Refills 3, Tot. Refills 3, Maintenance, 12/17/19 11:48:00 EST, [id number], 176.5, cm, 12/17/19 11:35:00 EST, [...] Active Anxiety(Confirmed) Active Aortic valve prosthesis pres [id number] TAVR 2017(Confirmed) 2, 3 Active Arteriosclerotic heart [...] 23 Active PAF (paroxysmal atrial fibri llation) [id number] 6(Confirmed) Active Pituitary microadenoma(Confi rmed) 24, 25, 26 Active Restless legs syndrome (RLS)(Confirmed) Active Thrombocytopenia(Confirmed) 27, 28 06/22/09 Active Tricuspid insufficiency(Confirmed) Active Trochanteric bursitis of rig ht hip(Confirmed) Active Type 2 diabetes with nephropathy(Confirmed) Active Type 2 diabetes mellitus wit h peripheral angiopathy(Confirmed) Active 1educated about use epi pen /when call [facility] [address] 41 graft 5CABG 2002 6Dr nini addressing 7nephrolithiasis 8to workup 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 12urology addressing [id number] 14ortho 15chronic 16RFA 17djd xray 2-015 18xray 2004 LS arthritis etc 19Zung=mod depression 20BCG 21carcinoma in situ 22saw ortho 23s aw ortho;injected SEVERE pain 24endocrinology addressing 25MRI pti ;refer endo 26mri c spine 2014 27per hematology ? 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
--- OUTSIDE RECORDS SUMMARY | 2023-10-05 09:49 | XMS_ITS | Continuity of Care Document ---
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 Name Role Phone Charisma LENZ, Michael Boston Primary Care Physician [place] [facility] [place] [id number] Date(s): 09/29/20 - 10/29/20 [facility] [address] [place] [id number] Attending Physician: Ju Chavez Admitting Physician: Ju Chavez Referring Physician: AdmtrJu Allergies, Adverse Reactions, Alerts Substance Reaction Severity Status lisinopril 1, 2 Active Welchol muscle and joint aches Activ e gabapentin unknown Active carvedilol 3 Active citalopram dizzy Active Percocet vomiting Active Effexor dizziness Active Remeron 4 dizziness Active Bee Stings Active Percocet 5/325 5 Active FLUoxetine dizziness Active [...] Bradford Comment: [06/30/2017] HIGH DOSE RECIEVED AT [facility] DR Lucero Comment: [08/12/2015] Received at [facility] [place] 4Admin Note: GIVEN IN CLINIC [facility] 5Admin [...] 10/20/20 11:45:00 EST, Route to Pharmacy Electronically, [facility]/pharmacy #[id number], 175, cm, 10/20/20 11:12:00 EST, Height, 80.6, kg, 08/05/20 17:31:00 EDT, Dry Weight Start Date: 10/20/20 Status: Ordered amoxicillin 500 mg oral capsule 4 capsule = 2,000 mg, By Mouth, Once, given 1 hour prior to dental procedure, # 4 capsule, 3 Refills, Soft Stop, 11/12/18 11:08:47 EST Start Date: 11/12/18 Status: Ordered apixaban 2.5 mg oral tablet 1 tablet = 2.5 mg, By Mouth, 2 times a day, # 180 tablet, 3 Refills, Maintenance, 03/05/20 13:50:00EDT, [facility]/pharmacy #[id number], 176.5, cm, 12/25/19 15:48:00 EST, Height, 83.4, kg, 11/02/18 13:42:00 EST,Dry Weight Start Date: 03/05/20 Status: Ordered apixaban 2.5 mg oral tablet 1 tablet = 2.5 mg, By Mouth, 2 times a day, # 5 LOT [id number] EXP 07-28, # 180 tablet, 0 Refills, Maintenance, 09/08/20 12:55:00 EST, Dry Weight Start Date: 09/08/20 Status: Ordered aspirin 81 mg oral tablet [...] Mouth, Daily at bedtime, # 30 tablet, 2 Refills, Maintenance, 09/08/20 12:59:00EST, [id number], 175, cm, 09/08/20 12:47:00 EST, Height, 80.6, kg, 08/05/20 17:31:00 EDT, Dry Weight Start Date: 09/08/20 Status: Ordered magnesium oxide 400 mg oral tablet 1 tablet = 400 mg, By Mouth, Daily, 0 Refills, Maintenance, 09/09/20 10:39:00 EST Start Date: 09/09/20 Status: Ordered melatonin 5 mg oral tablet By Mouth, Daily at bedtime, 0 Refills, Maintenance, 08/08/20 9:44:00 EDT, Tablet Start Date: 08/08/20 Status: Ordered metoprolol 25 mg oral tablet, extended release 25 mg, 1, tablet, By Mouth, Daily, # 90 tablet, Refills 3, Tot. Refills 3, Maintenance, 06/16/20 9:41:00 EDT, Route to Pharmacy Electronically, [facility]/pharmacy #[id number], succinate, 176.5, cm, 06/13/20 12:04:00 EDT, Height, 83.4, kg, 11/02/18 13:42:00 EST, D... Start Date: 06/16/20 Stop Date: 06/11/21 Status: Ordered omeprazole 20 mg oral delayed release tablet 1 tablet = 20 mg, By Mouth, Daily, # 90 tablet, 3 Refills, Maintenance, 12/17/19 11:48:00 EST, EC Tablet, [facility]/pharmacy #[id number], 176.5, cm, 12/17/19 11:35:00 EST, Height, 83.4, kg, 11/02/18 13:42:00 EST, Dry Weight Start Date: 12/17/19 Status: Ordered tamsulosin 0.4 mg oral capsule 0.4 mg, By Mouth, Daily at bedtime, # 90 capsule, Refills 3, Tot. Refills 3, Maintenance, 12/17/19 11:48:00 EST, Route to Pharmacy Electronically, [facility]/pharmacy #[id number], 176.5, cm, 12/17/19 11:35:00 EST, Height, 83.4, kg, 11/02/18 13:42:00 EST, Dry Weight Start Date: 12/17/19 Status: Ordered thiamine 100 mg oral tablet 100 mg, 1, tablet, By Mouth, Daily, # 30 tablet, Refills 11, Tot. 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, 27, 28 Active Restless legs syndrome (RLS)(Confirmed) Active Thrombocytopenia(Confirmed) 29, 30 06/22/09 Active Tricuspid insufficiency(Confirmed) Active Trochanteric bursitis of rig ht hip(Confirmed) Active Type 2 diabetes with nephropathy(Confirmed) Active Type 2 diabetes mellitus wit h peripheral angiopathy(Confirmed) Active 1educated about use epi pen /when call 2[employer] [employer] [facility] [address] 41 graft 5CABG 2002 6Dr nini addressing 7nephrolithiasis 8to workup 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 12giardiam,o/p ,culture neg 13normal IGA/TTG 14workup 15urology addressing [id number] 17ortho 18chronic 19RFA 20djd xray 2-015 21xray [...]
--- OUTSIDE RECORDS SUMMARY | 2023-10-05 09:49 | XMS_ITS | Continuity of Care Document ---
Author Name Unknown Organization [facility] [place] Address [address] [place] [address]- Care Team Providers Care Rehabilitation Teacher Name Role Phone Charisma LENZ, Michael [place] Primary Care Physician [phone] Encounter [place] Date(s): 02/09/22 - 03/11/22 [facility] Adult [address] [place] [address]- Attending Physician: Admtr, Ar8 Allergies, Adverse Reactions, Alerts [...] Pneumococcal Vaccine (oldterm) 11/07/98 Given 1Result Comment: [facility]# [address] [phone] 2Location History: [place] 3Resconstance Comment: [06/30/2017] HIGH DOSE RECIEVED AT [facility] 4Rrenée Comment: [08/12/2015] [place] [facility] [place] 5Result Comment: Pfizer right deltoid lot [id number] exp 06-06-2021 [facility] 6Admin [...] 09/01/21 11:50:00 EDT, Route to Pharmacy Electronically, [facility], 175, cm, 08/12/21 15:35:00 EDT, Height, 84.1, kg, 06/07/21 4:26:00 EDT,... Start Date: 09/01/21 Status: Ordered amLODIPine 5 mg oral tablet 1 tablet, By Mouth, Daily, # 90 tablet, 1 Refills, [facility], 175, cm, 02/09/22 10:10:00 EDT, [...] 90 tablet, 1 Refills, 09/01/21 11:50:00 EDT, [facility], 175, cm, 08/12/21 15:35:00 EDT, Height, 84.1, kg, 06/07/21 4:26:00 EDT, Dry Weight Start Date: 09/01/21 Status: Ordered Eliquis 2.5 mg oral tablet 1 tablet, By Mouth, 2 times a day, # 180 tablet, 9 Refills, [facility], 175, cm, 02/09/22 10:10:00 EDT, [...] tablet, 0 Refills, Maintenance, 02/23/22 9:27:00 EDT, [facility], 175, cm, 02/09/22 10:10:00 EDT, Height, 84.1, kg, 06/07/21 4:26:00 EDT, Dry Weight Start Date: 02/23/22 Status: Ordered magnesium oxide 400 mg oral tablet 1 tablet, By Mouth, Daily, # 90 tablet, 1 Refills, [facility], 175, cm, 02/09/22 10:10:00 EDT, Height, 84.1, kg, 06/07/21 4:26:00 EDT, Dry Weight Start Date: 02/10/22 Status: Ordered melatonin 5 mg oral tablet By Mouth, Daily at bedtime, 0 Refills, Maintenance, 08/08/20 9:44:00 EDT, Tablet Start Date: 08/08/20 Status: Ordered nystatin topical 810470 u/gm powder 1 application, Topically, 2 times a day, # 60 Gm, 5 Refills, Maintenance, 01/14/22 10:20:00 EST, Powder, [facility], Partial fill upon patient request if the prescription is for a schedule II opioid drug., 1 application Topically... Start Date: 01/14/22 Status: Ordered omeprazole 20 mg oral enteric coated capsule 1 capsule, By Mouth, Daily, # 90 capsule, 0 Refills, [facility], 175, cm, 02/09/22 10:10:00 EDT, Height, 84.1, kg, 06/07/21 4:26:00 EDT, Dry Weight Start Date: 02/10/22 Status: Ordered tamsulosin 0.4 mg oral capsule 1, capsule, By Mouth, Daily at bedtime, # 90 capsule, Refills 0, Route to Pharmacy Electronically, [facility], 175, cm, 02/09/22 10:10:00 EDT, Height, 84.1, kg, 06/07/21 4:26:00 EDT, Dry Weight Start Date: 02/12/22 Status: Ordered thiamine 100 mg oral tablet 100 mg, 1, tablet, By Mouth, Daily, # 30 tablet, Refills 11, Tot. 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 12giardiam,o/p ,culture neg 13normal IGA/TTG 14workup 15urology addressing [id number] 17ortho 18chronic 19RFA 20djd xray 2-015 21xray 2004 LS arthritis etc 22BCG 23carcinoma in situ 24saw ortho 25s aw ortho;injected SEVERE pain 26endocrinology addressing 27MRI pti ;refer endo 28mri c spine 2014 29per hematology ? 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;to follow 30workup in progress Procedures Procedure Date Related Diagnosis Body Site Status CEA - Carotid endarterectomy LEFT 10/29/[address] of head and neck- chronic lacunar infarcts, chronic microangiopathy and volume loss. no acute infarct. 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 rate 67 10/23/21 Completed Reference (Outside) Laborato ry- WBC 7.6, RBC 4.27, hgb 14.4, hct 41.5, plt 102, NA 139, K 3.9, BUN 13, creat 1.02, gluc 139, CA 8.8, MAG 1.8, AST 18, ALT 26 10/23/21 Completed Ultrasound of kidney 1, 2 01/05/12 Completed Radiologic examination, spin e, cervical; 2 or 3 views 3 11/27/10 Complet ed Cystourethroscopy (separate procedure) 4 06/26/10 Completed Carotid imaging 5 08/05/08 Complet ed 1need notes no obstruction 2no obstruction 3loss height c5-6,c6-7 4abnormalsee report BX pending 5rIC 60%, REC 10%, LEC 10%, LIC 40-50% Social History Social History Type Response Smoking Status Former smoker, quit more than 30 days ago entered on: 03/01/19 Sex
--- OUTSIDE RECORDS SUMMARY | 2023-10-05 09:49 | XMS_ITS | Continuity of Care Document ---
Author Name Unknown Organization [facility] Address [address] [place] [address]- Care Team Providers Care Safety Associate Name Role Phone Ju [employer], Giovana Chiu Primary Care Physician [place] [facility] [place]03/22 [facility] [address] [place] [address]- Attending Physician: Jeremiah Dugan MD Admitting Physician: Jeremiah Dugan MD Referring Physician: Michael Zafar MD Allergies, Adverse Reactions, Alerts Substance Reaction Severity Status lisinopril 1, 2 Active Bee Stings Active gabapentin unknown Active carvedilol 3 Active citalopram dizzy Active Percocet vomiting Active Effexor dizziness Active Remeron 4 dizziness Active Welchol muscle and joint aches Activ e FLUoxetine dizziness Active Lactose 5, 6 diarrhea Active Percocet 5/325 7 Active traZODone Active 1cough 2possible 3blurred vision 4nightmares 5Patient states 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 6patient states he drinks milk all of the time 7Pt states the last time he hade it, 16 years ago, it made him vomit Immunizations Given and Recorded Vaccine Date Status Refusal Reason SARS-CoV-2 mRNA ([id number]) vax 1 04/29/22 Given influenza virus vaccine, [...] Given 1Result Comment: [facility]-[id number] 2Result Comment: [facility]# [address] [phone] 3Location History: [place] 4Resconstance Comment: [06/30/2017] HIGH DOSE RECIEVED AT [facility] 5Resconstance Comment: [08/12/2015] Received at [facility] [place] 6Result Comment: Pfizer right deltoid lot [id number] exp 06-06-2021 [facility] 7Admin Note: GIVEN IN CLINIC [...] 90 tablet, 1 Refills, 05/09/22 6:15:00 EDT, [facility], 175, cm, 04/29/22 10:58:00 EDT, [...] By Mouth, Daily at bedtime, 11/09 delivery Tuesday12/09/21, start taking 12/10/21. 12/10 delivery Tuesday11/08/2201/07 delivery Tuesday12/08/22, # 30 tablet, 2 Refills, Maintenance, 09/27/22 20:54:00 EST, [facility]... Start Date: 09/27/22 Status: Ordered magnesium oxide 400 mg oral tablet 1 tablet, By Mouth, Daily, # 90 tablet, 1 Refills, Maintenance, 08/09/22 9:27:00 EDT, [place] [...] Start Date: 05/05/22 Status: Ordered nystatin topical [id number] u/gm powder 1 application, Topically, 2 times [...] capsule, 0 Refills, Maintenance, 08/07/22 10:53:00 EDT, [facility], 175, cm, 07/22/22 14:43:00 EDT, Height, 84.1, kg, 06/07/21 4:26:00 EDT, Dry Weight Start Date: 08/07/22 Status: Ordered tamsulosin 0.4 mg oral capsule 1, capsule, By Mouth, Daily at bedtime, # 90 capsule, Refills 1, Tot. 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 12giardiam,o/p ,culture neg 13normal IGA/TTG 14workup 15urology addressing [id number] 17ortho 18chronic 19RFA 20djd xray 2-015 21xray [...] Care Nurse Name: Giovana Dodd NP Position: [facility] PCO Associate Professional Member Role: PCP Address: Address: [address] [place] [id number]- [place] Name: Adam Dennis MD Position: [facility] Cardiology MD Member Role: Lifetime Consulting Physician Address: Address: [address] [place] [address] [address] [place] [address]- Name: Jo Dillon RN Position: S RN Member Role: Primary Care Nurse Name: Anh Pires RN Position: S RN Member Role: Primary Care Nurse Name: Lonnie Puente Position: S RN Member Role: Primary Care Nurse Name: Julia Khan RN Position: S RN Member Role: Primary Care Nurse Name: Jaqueline Johnson RN Position: S RN Member Role: Primary Care Nurse Name: Kathy Arellano RN Position: S RN Member Role: Primary Care Nurse Name: Viki Collazo RN Position: S RN Member Role: Primary Care Nurse Care Team Related Persons Name: SARWAT HENRIQUEZ Address: [address] [place] [address] Name: JOSEFINA CONTRERAS Address: home [address] [place] [address]
--- OUTSIDE RECORDS SUMMARY | 2023-10-05 09:49 | XMS_ITS | Continuity of Care Document ---
Author Name Unknown Organization [facility] Tom [facility] Address [address] [place] [address]- Care Team Providers Care Rehabilitation Assistant Name Role Phone Ju BROWN, Giovana Chiu Primary Care Physician [facility]): [facility]23 - 04/19/23 [facility] Adult [address] [place] [address]- Encounter Diagnosis Bladder cancer 2010/refuses f/u cyysto 2021 advised re abn cytology(Discharge Diagnosis) - 04/13/23 BPH (benign prostatic hyperplasia)(Discharge Diagnosis) - 04/13/23 Benign Essential Hypertension(Discharge Diagnosis) - 04/13/23 Lower extremity edema(Discharge Diagnosis) - 04/13/23 Abrasion of elbow, left(Discharge Diagnosis) - 04/13/23 Attending Physician: Giovana Dodd NP Referring Physician: Kevin Wells MD Allergies, Adverse Reactions, Alerts Substance Reaction [...] vaccine, inactivated 11/27/10 Give n SARS-CoV-2 mRNA ([id number]) vax 6 04/29/22 Given SARS-CoV-2 (COVID-19) mRNA [...] Pneumococcal Vaccine (oldterm) 11/07/98 Given 1Result Comment: [id number] 2Result Comment: [facility]# [address] [phone] 3Location History: [place] 4Result Comment: [06/30/2017] HIGH DOSE RECIEVED AT [address] 5Result Comment: [08/12/2015] [place] [facility] [place] Comment: [facility]-[id number] 7Result Comment: Pfizer right deltoid lot [id number] exp [facility] 8Admin Note: GIVEN IN CLINIC SHAM 9Admin [...] 04/07/23 14:29:00 EDT, Route to Pharmacy Electronically, [facility], 175, cm, 03/16/23 12:17:00 EDT, Height, 84.1, kg, 06/07/21 4:26:00 EDT, Dry Weight Start Date: 04/07/23 Status: Ordered amLODIPine 5 mg oral tablet 1 tablet, By Mouth, Daily, # 90 tablet, 1 Refills, Maintenance, 08/07/22 10:52:00 EDT, [facility], 175, cm, 07/22/22 14:43:00 [...] 90 tablet, 1 Refills, 11/24/22 14:41:00 EST, [facility], 175, cm, 09/29/22 12:43:00 EST, Height, 84.1, kg, 06/07/21 4:26:00 EDT, Dry Weight Start Date: 11/24/22 Status: Ordered Eliquis 2.5 mg oral tablet 1 tablet, By Mouth, 2 times a day, # 180 tablet, 9 Refills, 02/18/23 17:26:00 EDT, [facility], 175, cm, 01/24/23 11:05:00 EDT, Height, 84.1, kg, 06/07/21 4:26:00 EDT, Dry Weight Start Date: 02/18/23 Status: Ordered furosemide 20 mg oral tablet 20 mg, 1, tablet, By Mouth, Daily, for 30 days, # 30 tablet, Refills 0, Tot. Refills 0, Acute 05/15/23 12:48:00 EDT, 04/15/23 12:48:00 EDT, Route to Pharmacy Electronically, [facility], please dispense early, 175, cm, 03/16/23 12:... Start Date: 04/15/23 Stop Date: 05/15/23 Status: Ordered LORazepam 1 mg oral tablet 1 tablet = 1 mg, By Mouth, Daily at bedtime, 11/09 - 06/06 12/10 - 07/06 01/07 08/05, # 30 tablet, 2 Refills, Maintenance, 04/19/23 12:48:00 EDT Start Date: 04/19/23 Status: Ordered magnesium oxide 400 mg oral tablet 1 tablet, By Mouth, Daily, # 90 tablet, 11 Refills, Maintenance, 08/09/22 9:27:00 EDT, [facility], 175, cm, 07/22/22 14:43:00 EDT, Height, 84.1, kg, 06/07/21 4:26:00 EDT, Dry Weight Start Date: 08/09/22 Status: Ordered Melatonin Daily at bedtime, 0 Refills, Maintenance, 01/24/23 11:27:00 EDT Start Date: 01/24/23 Status: Ordered nystatin topical 736278 u/gm powder 1 application, Topically, 2 times a day, # 60 Gm, 1 Refills, Maintenance, 04/08/23 10:05:00 EDT, Powder, [facility], 1 application Topically 2 times a day, 175, cm, 03/16/23 12:17:00 EDT, Height, 84.1, kg, 06/07/21 4:26:00 EDT, Start Date: 04/08/23 Status: Ordered omeprazole 20 mg oral enteric coated capsule 1 capsule, By Mouth, Daily, # 90 capsule, 0 Refills, Maintenance, 03/08/23 9:16:00 EDT, [facility], 175, cm, 01/24/23 11:05:00 EDT, Height, 84.1, kg, 06/07/21 4:26:00 EDT, Dry Weight Start Date: 03/08/23 Status: Ordered tamsulosin 0.4 mg oral capsule 1, capsule, By Mouth, Daily at bedtime, # 90 capsule, Refills 1, Tot. Refills 1, 11/24/22 14:41:00 EST, Route to Pharmacy Electronically, [facility], 175, cm, 09/29/22 12:43:00 EST, Height, 84.1, kg, 06/07/21 4:26:00 EDT, Dry Weight Start Date: 11/24/22 Status: Ordered Vitamin B1 100 mg oral tablet 1, tablet, By Mouth, Daily, # 30 tablet, Refills 11, Maintenance, 08/09/22 9:27:00 EDT, Route to Pharmacy Electronically, [facility], 175, cm, 07/22/22 14:43:00 [...] Active Anxiety Confirmed Active Aortic valve prosthesis [id number] TAVR 2017 1, 2 Confirmed Active Arteriosclerotic [...] Confirmed 07/22/22 Active PAF (paroxysmal atrial fibrillation) [id number] 6 Confirmed Active 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 11giardiam,o/p ,culture neg 12normal IGA/TTG 13workup [id number] 15chronic 16RFA 17djd xray 2-015 18xray 2004 LS arthritis etc 19BCG 20carcinoma in situ 21Per Dr. Zafar 07/22/22. 22saw ortho 23endocrinology addressing 24MRI pti ;refer endo 25mri c spine 2014 26per hematology ? 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;to follow 27workup in progress Diagnosis Diagnosis Type Effective Dates Health Status Clinical Service Informant BPH (benign prostatic hyperplasia) Discharge Diagnosis 04/13/23 Benign Essential Hypertension Discharge Diagnosis 04/13/23 Bladder cancer 2010/refuses f/u cyysto 2021 advised re abn cytology Discharge Diagnosis 04/13/23 Lower extremity edema Discharge Diagnosis 04/13/23 Abrasion of elbow, left Discharge Diagnosis 04/13/23 Vital Signs Most recent to oldest [Reference Range]: 1 Height 175 cm (04/12/23 11:54 AM) Weight 85.9 kg (04/12/23 11:54 AM) Oxygen Saturation [94-100 %] 98 % (04/12/23 11:54 AM) Pulse Rate [55-90 bpm] 84 bpm (04/12/23 11:54 AM) Body Mass Index [18.5-24.99 kg/m2] 28.05 kg/m2 *H* (04/12/23 11:54 AM) Blood Pressure [90-138/55-84 mm Hg] 133/ 71mm Hg (04/12/23 11:54 AM) Mode of Delivery (Oxygen) Room air (04/12/23 11:54 AM) Blood pressure sites Arm, right (04/12/23 11:54 AM) Weight Obtained Via Standing scale (04/12/23 11:54 AM) Social History Social History Type Response Smoking Status Former smoker, quit more than 30 days ago; Type: Cigarettes; Type: Cigars entered on: 01/24/23 Sex Note * Cheyanne Demarco: PERFORM, SIGN, VERIFY Event Display: Patient Education/Instruction Authored Date: [id number] [facility] *BMP So Kirk Newman Clinical Summary Name SHADI SWAN Age 88 Years 1935 PCP Giovana Dodd NP PCP Visit Date 04/12/2023 11:52:00 Additional Instructions: Scheduled Appointments?? Future Appointments ?*[facility]??Cardiology1 ?Phone:??--?Fax:??-- ?Appt. Date:??06/13/2023?7:40 AM ?Scheduled Provider:??Device Interrogation Follow-Up Instructions ?? With: Address: When: Giovana Dodd NP In 3 months Diagnosis Medications: Please continue your medications until treatment is completed or stopped by your provider. Discuss any questions related to medications with your provider. Medications to Continue with No Changes These medications were not printed or sent [...] for 30 Days. Refills: 11. Next Dose: Furosemide (furosemide 20 mg oral tablet) 1 tab(s) Oral Daily for 30 Days. Refills: 0. Next Dose: Furosemide (furosemide 20 mg oral tablet) 1 tab(s) Oral Daily for 30 Days. Refills: 0. Next Dose: Lorazepam (LORazepam 1 mg oral tablet) 1 tab(s) Oral Daily at Bedtime. 11/09 - 03/08/2312/10 - 04/07/2301/07 delivery Sunday 05/06, start taking 05/07/23. Refills: 2. Next Dose: Magnesium Oxide (magnesium oxide 400 mg oral tablet) 1 tab(s) Oral Daily. Refills: 11. Next Dose: Melatonin Daily at Bedtime. Next Dose: Nystatin Topical (nystatin topical 398301 u/gm powder) 1 venancio Topically twice a day. Refills: 1. Next Dose: Omeprazole (omeprazole 20 mg oral enteric coated capsule) 1 capsule Oral Daily. Refills: 0. Next Dose: Tamsulosin (tamsulosin 0.4 mg oral capsule) 1 capsule Oral Daily at Bedtime. Refills: 1. Next Dose: Thiamine (Vitamin B1 100 mg oral tablet) 1 tab(s) Oral Daily. Refills: 11. Next Dose: Allergy Info:?? traZODone; FLUoxetine; Percocet 5/325; Lactose; Welchol; Bee Stings; Remeron; Effexor; Percocet; citalopram; carvedilol; lisinopril Medications Given This Visit Future Orders ?No future orders Vital Signs Height 175 cm Weight 85.9 kg BMI 28.05 kg/m2 Blood Pressure 133 mm Hg/71 mm Hg Temperature Pulse Rate 84 bpm Respiratory Rate 02 Sat Mode of Delivery 98 %/Room air You can now view a summary of your hospital visit from the comfort of your home through a free online portal called [employer]. [employer] is a website that allows you to securely view your medical information including discharge summary, medications and follow-up visits. ??You can alsosend a secure electronic message to your doctor???s office to request appointments, renew medications or just ask a question. You can enroll at [email or web address] or register during your next office visit. [...] primary care provider, you may find a [facility] provider by calling [facility] [employer] at [phone]. For information about the plan of care including goals and instructions for your diagnosis, please see the patient education orders section of this document. Patient Education Materials?? The content of this educational material or handout may have been modified, supplemented, or adapted from its original content and format to support your individualized medical care. * Cheyanne Demarco: PERFORM, SIGN, VERIFY Event Display: Patient Education/Instruction Authored Date: [id number] [facility] *BMP So Kirk Newman Clinical Summary Name SHADI SAWN Age 88 Years 1935 PCP Ju Giovana BROWN PCP Visit Date 04/12/2023 11:52:00 Additional Instructions: Scheduled Appointments?? Future Appointments ?*[facility]??Cardiology1 ?Phone:??--?Fax:??-- ?Appt. Date:??06/13/2023?7:40 AM ?Scheduled Provider:??Device Interrogation Follow-Up Instructions ?? With: Address: When: Ju BROWN, Giovana Apple In 3 months Diagnosis Medications: Please continue your medications until treatment is completed or stopped by your provider. Discuss any questions related to medications with your provider. Medications to Continue with No Changes These medications were not printed or sent [...] for 30 Days. Refills: 11. Next Dose: Furosemide (furosemide 20 mg oral tablet) 1 tab(s) Oral Daily for 30 Days. Refills: 0. Next Dose: Furosemide (furosemide 20 mg oral tablet) 1 tab(s) Oral Daily for 30 Days. Refills: 0. Next Dose: Lorazepam (LORazepam 1 mg oral tablet) 1 tab(s) Oral Daily at Bedtime. 11/09 - 03/08/2312/10 - 04/07/2301/07 delivery Sunday 05/06, start taking 05/07/23. Refills: 2. Next Dose: Magnesium Oxide (magnesium oxide 400 mg oral tablet) 1 tab(s) Oral Daily. Refills: 11. Next Dose: Melatonin Daily at Bedtime. Next Dose: Nystatin Topical (nystatin topical 651049 u/gm powder) 1 venancio Topically twice a day. Refills: 1. Next Dose: Omeprazole (omeprazole 20 mg oral enteric coated capsule) 1 capsule Oral Daily. Refills: 0. Next Dose: Tamsulosin (tamsulosin 0.4 mg oral capsule) 1 capsule Oral Daily at Bedtime. Refills: 1. Next Dose: Thiamine (Vitamin B1 100 mg oral tablet) 1 tab(s) Oral Daily. Refills: 11. Next Dose: Allergy Info:?? traZODone; FLUoxetine; Percocet 5/325; Lactose; Welchol; Bee Stings; Remeron; Effexor; Percocet; citalopram; carvedilol; lisinopril Medications Given This Visit Future Orders ?No future orders Vital Signs Height 175 cm Weight 85.9 kg BMI 28.05 kg/m2 Blood Pressure 133 mm Hg/71 mm Hg Temperature Pulse Rate 84 bpm Respiratory Rate 02 Sat Mode of Delivery 98 %/Room air You can now view a summary of your hospital visit from the comfort of your home through a free online portal called [employer]. [employer] is a website that allows you to securely view your medical information including discharge summary, medications and follow-up visits. ??You can alsosend a secure electronic message to your doctor???s office to request appointments, renew medications or just ask a question. You can enroll at [email or web address] or register during your next office visit. [...] primary care provider, you may find a [facility] provider by calling [facility] [employer] at [phone]. For information about the plan of care [...] Team Personnel Name: Giovana Dodd NP Position: [facility] PCO Associate Professional Member Role: PCP Address: Address: [address] [place] [address]- [place] Name: Adam Dennis MD Position: [facility] Cardiology MD Member Role: Lifetime Consulting Physician Address: Address: [address] [place] [address] [address] [place] [address]- [place] Name: Julia Yu RN Position: S [...] Persons Name: SARWAT HENRIQUEZ Address: [address] [place] [address] Name: JOSEFINA CONTRERAS Address: home [address] [place] [address]
--- OUTSIDE RECORDS SUMMARY | 2023-10-05 09:49 | XMS_ITS | Continuity of Care Document ---
Author Name Unknown Organization [facility] Tom lt Address [address] [place] [address]- Care Team Providers Care Flight Simulator Teacher Name Role Phone Charisma LENZ, Michael [place] Primary Care Physician [facility]): [facility]20 - 04/20/20 [facility] Adult [address] [place] [address]- [facility] Attending Physician: Kevin Wells MD Allergies, Adverse Reactions, [...] 3Rrenée Comment: [06/30/2017] HIGH DOSE RECIEVED AT [facility] 4Rrenée Comment: [08/12/2015] Received at [facility] 5Admin Note: given in clinic [...] 180 tablet, 3 Refills, Maintenance, 03/05/20 13:50:00EDT, [facility]/pharmacy #[id number], 176.5, cm, 12/25/19 15:48:00 EST, [...] Gm, 0 Refills, Maintenance, 10/10/19 11:35:05 EST, [place], 1 sprays Nares, Both 2 times a [...] Replace Required Details, Route to Pharmacy Electronically, [facility]/... Start Date: 12/17/19 Status: Ordered LIDODERM [...] 3 Refills, Maintenance, 12/17/19 11:48:00 EST, Tablet, [facility]/pharmacy #[id number], Rx resent from 11/03/16., 176.5, cm, 12/17/19 11:35:00 EST, Height, 83.4, kg, 11/02/18 13:42:00 EST, Dry Weight Start Date: 12/17/19 Status: Ordered LORazepam 2 mg oral tablet 1 tablet = 2 mg, By Mouth, 2 times a day, # 60 tablet, 0 Refills, Maintenance, 03/05/20 13:50:00 EDT, [facility]/pharmacy #[id number], 176.5, cm, 12/25/19 15:48:00 EST, Height, 83.4, kg, 11/02/18 13:42:00 EST, Dry Weight Start Date: 03/05/20 Status: Ordered metoprolol 25 mg oral tablet, extended release 25 mg, 1, tablet, By Mouth, Daily, # 90 tablet, Refills 3, Tot. Refills 3, Maintenance, 03/21/20 12:01:00 EDT, Route to Pharmacy Electronically, [facility]/pharmacy #[id number], 176.5, cm, 03/21/20 8:21:00 EDT, Height, 83.4, kg, 11/02/18 13:42:00 EST, Dry Weight Start Date: 03/21/20 Status: Ordered omeprazole 20 mg oral delayed release tablet 1 tablet = 20 mg, By Mouth, Daily, # 90 tablet, 3 Refills, Maintenance, 12/17/19 11:48:00 EST, EC Tablet, [facility]/pharmacy #[id number], 176.5, cm, 12/17/19 11:35:00 EST, Height, 83.4, kg, 11/02/18 13:42:00 EST, Dry Weight Start Date: 12/17/19 Status: Ordered tamsulosin 0.4 mg oral capsule 0.4 mg, By Mouth, Daily at bedtime, # 90 capsule, Refills 3, Tot. 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 TAVR 2018(Confirmed) 2, 3 Active Arteriosclerotic heart [...] 23 Active PAF (paroxysmal atrial fibri llation) [id number] 6(Confirmed) Active Pituitary microadenoma(Confi rmed) 24, 25, 26 Active Restless legs syndrome (RLS)(Confirmed) Active Thrombocytopenia(Confirmed) 27, 28 06/22/09 Active Tricuspid insufficiency(Confirmed) Active Trochanteric bursitis of rig ht hip(Confirmed) Active Type 2 diabetes with nephropathy(Confirmed) Active Type 2 diabetes mellitus wit h peripheral angiopathy(Confirmed) Active 1educated about use epi pen /when call 2CARPENTIER PERICARDIAL VALVE [facility] 86997 41 graft 5CABG 2002 6Dr nini addressing 7nephrolithiasis 8to workup 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 12urology addressing [id number] 14ortho 15chronic 16RFA 17djd xray 2-015 18xray [...]
--- OUTSIDE RECORDS SUMMARY | 2023-10-05 09:49 | XMS_ITS | Continuity of Care Document ---
Author Name Unknown Organization [facility] Address [address] [place] [address]- Care Team Providers Care Shore Man Name Role Phone Charisma LENZ, Michael [place] Primary Care Physician [place] [facility] [place] [id number] Date(s): 01/19/22 - 02/18/22 [facility] [address] [place] [address]- Attending Physician: Admjuan, Ju Admitting Physician: Admtr, Ju Referring Physician: Admtr, Ar8 Allergies, Adverse Reactions, [...] Pneumococcal Vaccine (oldterm) 11/07/98 Given 1Result Comment: [facility] [place] [place] [address] [phone] 2Location History: [place] 3Rrenée Comment: [06/30/2017] HIGH DOSE RECIEVED AT [facility] 4Rrenée Comment: [08/12/2015] [place] [facility] 5Result Comment: Pfizer right deltoid lot [id number] exp 06-06-2021 [facility] 6Admin Note: GIVEN IN CLINIC SHAM 7Admin [...] 09/01/21 11:50:00 EDT, Route to Pharmacy Electronically, [facility], 175, cm, 08/12/21 15:35:00 EDT, Height, 84.1, kg, 06/07/21 4:26:00 EDT,... Start Date: 09/01/21 Status: Ordered amLODIPine 5 mg oral tablet 1 tablet, By Mouth, Daily, # 90 tablet, 1 Refills, [facility], 175, cm, 02/09/22 10:10:00 [...] 90 tablet, 1 Refills, 09/01/21 11:50:00 EDT, [facility], 175, cm, 08/12/21 15:35:00 EDT, Height, 84.1, kg, 06/07/21 4:26:00 EDT, Dry Weight Start Date: 09/01/21 Status: Ordered Eliquis 2.5 mg oral tablet 1 tablet, By Mouth, 2 times a day, # 180 tablet, 9 Refills, [facility], 175, cm, 02/09/22 10:10:00 [...] Maintenance, PUT 1 PATCH OVER AREA PAIN;ONE FRI CHEST,ONE BACK PUT ON BEDTIME.REMOVE 12 HIOURS LATER, 09/14/19 11:53:13 EST, Compound Start Date: 09/14/19 Status: Ordered LORazepam 1 mg oral tablet 1 tablet = 1 mg, By Mouth, Daily at bedtime, # 30 tablet, 0 Refills, Maintenance, 01/25/22 11:41:00EDT, [facility], 175, cm, 01/14/22 10:06:00 EST, Height, 84.1, kg, 06/07/21 4:26:00 EDT, Dry Weight Start Date: 01/25/22 Status: Ordered magnesium oxide 400 mg oral tablet 1 tablet, By Mouth, Daily, # 90 tablet, 1 Refills, [facility], 175, cm, 02/09/22 10:10:00 EDT, Height, 84.1, kg, 06/07/21 4:26:00 EDT, Dry Weight Start Date: 02/10/22 Status: Ordered melatonin 5 mg oral tablet By Mouth, Daily at bedtime, 0 Refills, Maintenance, 08/08/20 9:44:00 EDT, Tablet Start Date: 08/08/20 Status: Ordered nystatin topical 199414 u/gm powder 1 application, Topically, 2 times a day, # 60 Gm, 5 Refills, Maintenance, 01/14/22 10:20:00 EST, Powder, [facility], Partial fill upon patient request if the prescription is for a schedule II opioid drug., 1 application Topically... Start Date: 01/14/22 Status: Ordered omeprazole 20 mg oral enteric coated capsule 1 capsule, By Mouth, Daily, # 90 capsule, 0 Refills, [facility], 175, cm, 02/09/22 10:10:00 EDT, Height, 84.1, kg, 06/07/21 4:26:00 EDT, Dry Weight Start Date: 02/10/22 Status: Ordered tamsulosin 0.4 mg oral capsule 1, capsule, By Mouth, Daily at bedtime, # 90 capsule, Refills 0, Route to Pharmacy Electronically, [facility], 175, cm, 02/09/22 10:10:00 EDT, Height, 84.1, kg, 06/07/21 4:26:00 EDT, Dry Weight Start Date: 02/12/22 Status: Ordered thiamine 100 mg oral tablet 100 mg, 1, tablet, By Mouth, Daily, # 30 tablet, Refills 11, Tot. Refills 11, Maintenance, 10/05/2116:07:00 EST, Route to Pharmacy Electronically, [facility], 175, cm, 09/23/21 12:36:00 [...] Active Anxiety(Confirmed) Active Aortic valve prosthesis pres [id number] TAVR 2017(Confirmed) 2, 3 Active Arteriosclerotic heart [...] 25 Active PAF (paroxysmal atrial fibri llation) [id number] 6(Confirmed) Active 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 12giardiam,o/p ,culture neg 13normal IGA/TTG 14workup 15urology addressing [id number] 17ortho 18chronic 19RFA 20djd xray 2-015 21xray [...]
--- OUTSIDE RECORDS SUMMARY | 2023-10-05 09:49 | XMS_ITS | Continuity of Care Document ---
Author Name Unknown Organization [facility] Tom lt Address [address] [place] [address]- Care Team Providers Care Sports Journalist Name Role Phone Charisma LENZ, Michael Boston Primary Care Physician [place] [facility] [place] 12/31/21 - 01/30/22 [facility] Adult [address] [place] [address]- Allergies, Adverse Reactions, Alerts Substance Reaction Severity Status lisinopril 1, 2 Active Welchol muscle and joint aches Activ e gabapentin unknown Active carvedilol 3 Active citalopram dizzy Active Percocet vomiting Active Effexor dizziness Active Remeron 4 dizziness Active Bee Stings Active FLUoxetine dizziness Active Lactose 5, 6 diarrhea [...] Pneumococcal Vaccine (oldterm) 11/07/98 Given 1Result Comment: [facility]# [address] [phone] 2Location History: [place] 3Result Comment: [06/30/2017] HIGH DOSE RECIEVED AT [facility] 4Rrenée Comment: [08/12/2015] [place] [facility] [place] Comment: Pf[facility] deltoid [facility] [id number] 6Admin Note: GIVEN [...] 09/01/21 11:50:00 EDT, Route to Pharmacy Electronically, [facility], 175, cm, 08/12/21 15:35:00 EDT, Height, 84.1, kg, 06/07/21 4:26:00 EDT,... Start Date: 09/01/21 Status: Ordered amLODIPine 5 mg oral tablet See Instructions, 1/2 at night, # 45 each, Refills 1, Tot. Refills 1, Maintenance, 06/08/21 11:27:00 EDT, Instructions Replace Required Details, Route to Pharmacy Electronically, [facility]/pharmacy #[id number], 175, cm, 06/07/21 8:16:00 EDT, [...] 90 tablet, 1 Refills, 09/01/21 11:50:00 EDT, [facility], 175, cm, 08/12/21 15:35:00 EDT, Height, 84.1, kg, 06/07/21 4:26:00 EDT, Dry Weight Start Date: 09/01/21 Status: Ordered Eliquis 2.5 mg oral tablet 1 tablet, By Mouth, 2 times a day, # 180 tablet, 3 Refills, Maintenance, 03/17/21 11:43:00 EDT, [id number], 175, cm, 02/06/21 10:40:00 EDT, Height, 79, [...] 30 tablet, 0 Refills, Maintenance, 01/25/22 11:41:00EDT, [facility], 175, cm, 01/14/22 10:06:00 EST, Height, 84.1, kg, 06/07/21 4:26:00 EDT, Dry Weight Start Date: 01/25/22 Status: Ordered magnesium oxide 400 mg oral tablet 1 tablet = 400 mg, By Mouth, Daily, # 90 tablet, 3 Refills, Maintenance, 02/12/21 17:31:00 EDT, Tablet, [facility]/pharmacy #[id number], Partial fill upon patient request if the prescription is for a schedule II opioid drug., 175, cm, 02/06/21 10:40:00 EDT, Height... Start Date: 02/12/21 Status: Ordered melatonin 5 mg oral tablet By Mouth, Daily at bedtime, 0 Refills, Maintenance, 08/08/20 9:44:00 EDT, Tablet Start Date: 08/08/20 Status: Ordered nystatin topical [id number] u/gm powder 1 application, Topically, 2 times a day, # 60 Gm, 5 Refills, Maintenance, 01/14/22 10:20:00 EST, Powder, [facility], Partial fill upon patient request if the prescription is for a schedule II opioid drug., 1 application Topically... Start Date: 01/14/22 Status: Ordered omeprazole 20 mg oral enteric coated capsule 1 capsule, By Mouth, Daily, # 90 capsule, 0 Refills, 09/01/21 11:50:00 EDT, [facility], 175, cm, 08/12/21 15:35:00 EDT, Height, 84.1, kg, 06/07/21 4:26:00 EDT, Dry Weight Start Date: 09/01/21 Status: Ordered predniSONE 50 mg oral tablet 1 tablet = 50 mg, By Mouth, Daily, with food or milk, # 4 tablet, 0 Refills, Maintenance, 01/14/22 10:19:00 EST, Tablet, [facility], Partial fill upon patient request if the prescription is for a schedule II opioid drug., 175, cm,... Start Date: 01/14/22 Status: Ordered tamsulosin 0.4 mg oral capsule 1, capsule, By Mouth, Daily at bedtime, # 90 capsule, Refills 1, Tot. Refills 0, Maintenance, 05/08/21 14:24:00 EDT, Route to Pharmacy Electronically, [id number], 175, cm, 04/29/21 10:36:00 EDT,Height, 79, kg, 11/26/20 11:00:00 EST, Dry Weight Start Date: 05/08/21 Status: Ordered thiamine 100 mg oral tablet 100 mg, 1, tablet, By Mouth, Daily, # 30 tablet, Refills 11, Tot. Refills 11, Maintenance, 10/05/2116:07:00 EST, Route to Pharmacy Electronically, [facility], 175, cm, 09/23/21 12:36:00 EST, Height, [...] Active Anxiety(Confirmed) Active Aortic valve prosthesis pres [id number] TAVR 2017(Confirmed) 2, 3 Active Arteriosclerotic heart [...] 25 Active PAF (paroxysmal atrial fibri llation) [id number] 6(Confirmed) Active 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, 27, 28 Active Restless legs syndrome (RLS)(Confirmed) Active Thrombocytopenia hematology 2009 ? 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 12giardiam,o/p ,culture neg 13normal IGA/TTG 14workup 15urology addressing [id number] 17ortho 18chronic 19RFA 20djd xray 2-015 21xray [...]
--- OUTSIDE RECORDS SUMMARY | 2023-10-05 09:49 | XMS_ITS | Continuity of Care Document ---
Author Name Unknown Organization [facility] Tom lt Address [address] [place] [address]- Care Team Providers Care Rn Licensed Practical Name Role Phone Charisma LENZ, Michael Boston Primary Care Physician [phone] Encounter [facility] Date(s): 10/23/19 - 11/02/19 [facility] Adult [address] [place] [address]- [facility] Attending Physician: Admtr, Ar8 Allergies, Adverse Reactions, [...] 3Rrenée Comment: [06/30/2017] HIGH DOSE RECIEVED AT [facility] 4Rrenée Comment: [08/12/2015] [place] [facility] [place] 5Admin Note: given in clinic 6Admin Note: historical data Medications acetaminophen 325 mg oral tablet 650 mg, By Mouth, Every 4 hours, PRN, Refills 0, Maintenance, Pain , Mild, 11/10/18 15:51:53 EST Start Date: 11/10/18 Status: Ordered amLODIPine 2.5 mg oral tablet 2.5 mg, 1, tablet, By Mouth, Daily, # 30 tablet, Refills 11, Tot. Refills 11, Maintenance, 08/08/1912:14:22 EDT, Route to Pharmacy Electronically, [id number], [facility]/pharmacy #0315 Start Date: 08/08/19 Status: Ordered amoxicillin 500 mg oral capsule 4 capsule = 2,000 mg, By Mouth, Once, given 1 hour prior to dental procedure, # 4 capsule, 3 Refills, Soft Stop, 11/12/18 11:08:47 EST Start Date: 11/12/18 Status: Ordered apixaban 2.5 mg oral tablet 1 tablet = 2.5 mg, By Mouth, 2 times a day, for 30 days, # 60 tablet, 11 Refills, Hard Stop 11/05/19 15:50:29 EST, 11/10/18 15:50:29 EST, Tablet Start Date: 11/10/18 Stop Date: 11/05/19 Status: Ordered apixaban 2.5 mg oral tablet 1 tablet = 2.5 mg, By Mouth, 2 times a day, for 14 days, lot [id number] exp 07/2020 x 2 boxes, lot [id number] exp 12/2020 x3, # 28 tablet, 6 Refills, Hard Stop 03/28/20 11:17:24 EDT, 12/21/19 11:17:24 EST,Tablet Start Date: 12/21/19 Stop Date: 03/28/20 Status: Ordered apixaban 2.5 mg oral tablet 1 tablet = 2.5 mg, By Mouth, 2 times a day, for 14 days, lot [id number] exp 05/2020 #8 BOX, # 28 tablet, 6 Refills, Hard Stop 12/21/19 11:17:24 EST, 09/14/19 11:17:24 EST, Tablet Start Date: 09/14/19 Stop Date: 12/21/19 Status: Ordered aspirin 81 mg oral tablet 1 tablet = 81 mg, By Mouth, Daily, # 90 tablet, 3 Refills, 1 tablet By Mouth Daily,x90 days Start Date: 10/26/13 Stop Date: 10/21/14 Status: Ordered Flonase 50 mcg/inh nasal spray 1 sprays, Nares, Both, 2 times a day, # 16 Gm, 0 Refills, Maintenance, 10/10/19 11:35:05 EST, [place], 1 sprays Nares, Both 2 times a day, 176.5, cm, 10/10/19 11:18:43 EST, Height, 83.4, kg, 11/02/18 13:42:46 EST, Dry Weight Start Date: 10/10/19 Status: Ordered furosemide 20 mg oral tablet See Instructions, # 90 tablet, Refills 1 Tot. Refills 1, TAKE 1 TABLET BY MOUTH EVERY DAY, [facility]/pharmacy #[id number] Start Date: 08/20/19 Status: Ordered LIDODERM PATCH LIDODERM PATCH, See [...] 3 Refills, Maintenance, Tablet, Route toPharmacy Electronically, [id number], [id number], Rx resent from 11/03/16. Start Date: 12/28/18 Status: Ordered LORazepam 2 mg oral tablet 1 tablet = 2 mg, By Mouth, 2 times a day, # 60 tablet, 5 Refills, Maintenance, 04/18/19 15:23:18 EDT Start Date: 04/18/19 Status: Ordered metoprolol 25 mg oral tablet 12.5 mg, 0.5, tablet, By Mouth, Daily, # 30 tablet, Refills 11, Tot. Refills 11, Maintenance, 07/27/19 11:08:13 EDT, Route to Pharmacy Electronically, [id number], [facility]/pharmacy #0315 Start Date: 07/27/19 Status: Ordered omeprazole 20 mg oral delayed [...] 12/28/18 10:45:55 EST, Route to Pharmacy Electronically, [id number], [facility] Start Date: 12/28/18 Status: Ordered Tums 500 [...] Active Anxiety(Confirmed) Active Aortic valve prosthesis pres [id number] TAVR 2017(Confirmed) 2, 3 Active Arteriosclerotic heart [...] 14 Active Foot pain(Confirmed) Active GERD EGD (Confirmed) Active Acute gout(Confirmed) 08/09/19 Active H/O endarterectomy RT 2009(Confirmed) Active 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 Active Hx of CABG x 1;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) 15 Active Hyperlipidemia NOS(Confirmed) Active Inguinal hernia;left(Confirmed) [...] 25 Active PAF (paroxysmal atrial fibri llation) [id number] 6(Confirmed) Active 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, 27, 28 Active Restless legs syndrome (RLS)(Confirmed) Active Thrombocytopenia(Confirmed) 29, 30 06/22/09 Active Tricuspid insufficiency(Confirmed) Active Trochanteric bursitis of rig ht hip(Confirmed) Active Type 2 diabetes with nephropathy(Confirmed) Active Type 2 diabetes mellitus wit h peripheral angiopathy(Confirmed) Active Active 1educated about use epi pen /when call 2[facility] [address] 41 graft 5CABG 2002 6Dr nini addressing 7nephrolithiasis 8to workup 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 12Zung=mod depression 13has seen ship mate,aware RE DIABETIC;risk diabetes 14urology addressing [id number] 16ortho 17chronic 18RFA 19djd xray 2-015 20xray [...] Procedure Date Related Diagnosis Body Site Status Ultrasound of kidney 1, 2 01/05/12 Completed [...]
--- OUTSIDE RECORDS SUMMARY | 2023-10-05 09:49 | XMS_ITS | Continuity of Care Document ---
Author Name Unknown Organization [facility] Tom [facility] Address [address] [place] [address]- Care Team Providers Care Full Time Babysitter Name Role Phone Charisma LENZ, Michael Boston Primary Care Physician [place] [facility] [place]21 [facility] [place] Adult [address] [place] [address]- Allergies, Adverse Reactions, Alerts Substance Reaction Severity Status lisinopril 1, 2 Active carvedilol 3 Active citalopram dizzy Active Percocet vomiting Active Effexor dizziness Active Remeron 4 dizziness Active Bee Stings Active Welchol muscle and joint aches Activ e FLUoxetine dizziness Active gabapentin unknown Active Percocet 5/325 5 Active 1cough 2possible [...] [place] Comment: [06/30/2017] HIGH DOSE RECIEVED AT [facility] DR Lucero Comment: [08/12/2015] Received at [facility] [place] [facility]: GIV[facility] IN [facility] 5Admin Note: [...] Replace Required Details, [id number], cm, 10/20/20 11:12:00 EST, Height, 80.6,... Start Date: 10/20/20 Status: Ordered amLODIPine 5 mg oral tablet 5 mg, 1, tablet, By Mouth, Daily, # 30 tablet, Refills 3, Tot. Refills 3, Maintenance, 12/05/20 9:44:00 EST, [id number] 175, cm, 12/05/20 8:32:00 EST, Height, 79, kg, 11/26/20 11:00:00 EST, Dry Weight Start Date: 12/05/20 Status: Ordered apixaban 2.5 mg oral tablet 1 tablet = 2.5 mg, By Mouth, 2 times a day, # 180 tablet, 3 Refills, Maintenance, 03/05/20 13:50:00EDT, [facility]/pharmacy #[id number], 176.5, cm, 12/25/19 [...] 1 Refills, Maintenance, 02/07/21 22:44:00 EDT, Tablet, [facility]/pharmacy #[id number], Rx resent from 11/03/16., 175, cm, 02/06/21 10:40:00 EDT, Height,79, kg, 11/26/20 11:00:00 EST, Dry Weight Start Date: 02/07/21 Status: Ordered LORazepam 1 mg oral tablet 1 tablet = 1 mg, By Mouth, Daily at bedtime, # 30 tablet, 0 Refills, Maintenance, 01/08/21 14:42:00EST, [facility]/pharmacy #0315, 175, cm, 01/02/21 11:40:00 EST, Height, [...] Refills, Maintenance, 02/07/21 22:44:00 EDT, EC Tablet, [facility]/pharmacy #[id number], 175, cm, 02/06/21 10:40:00 EDT, Height, 79, kg, 11/26/20 11:00:00 EST, Dry Weight Start Date: 02/07/21 Status: Ordered predniSONE 20 mg oral tablet 1 tablet = 20 mg, By Mouth, 2 times a day, with food or milk, # 6 tablet, 0 Refills, Maintenance, 02/06/21 10:49:00 EDT, Tablet, [facility]/pharmacy #[id number], Partial fill upon patient request if the prescription is for a schedule II opioid drug., 175, cm, 0... Start Date: 02/06/21 Status: Ordered tamsulosin 0.4 mg oral capsule 0.4 mg, By Mouth, Daily at bedtime, # 90 capsule, Refills 1, Tot. Refills 1, Maintenance, 02/07/21 22:44:00 EDT, Route to Pharmacy Electronically, [facility]/pharmacy #[id number], 175, cm, 02/06/21 10:40:00 EDT, Height, 79, kg, 11/26/20 11:00:00 EST, Dry Weight Start Date: 02/07/21 Status: Ordered thiamine 100 mg oral tablet 100 mg, 1, tablet, By Mouth, Daily, # 30 tablet, Refills 11, Tot. Refills 11, Maintenance, 09/08/2013:24:00 EST, Route to Pharmacy Electronically, [facility]/pharmacy #[id number], 175, cm, 09/08/20 12:47:00 EST,Height, [...] Active Anxiety(Confirmed) Active Aortic valve prosthesis pres [id number] TAVR 2017(Confirmed) 2, 3 Active Arteriosclerotic heart [...] 25 Active PAF (paroxysmal atrial fibri llation) [id number] 6(Confirmed) Active 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, 27, 28 Active Restless legs syndrome (RLS)(Confirmed) Active Thrombocytopenia(Confirmed) 29, 30 06/22/09 Active Tricuspid insufficiency(Confirmed) Active Trochanteric bursitis of rig ht hip(Confirmed) Active Type 2 diabetes with nephropathy(Confirmed) Active Type 2 diabetes mellitus wit h peripheral angiopathy(Confirmed) Active 1educated about use epi pen /when call 2[facility] [address] 41 graft 5CABG 2002 6Dr nini addressing 7nephrolithiasis 8to workup 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 12giardiam,o/p ,culture neg 13normal IGA/TTG 14workup 15urology addressing [id number] 17ortho 18chronic 19RFA 20djd xray 2-015 21xray [...]
--- OUTSIDE RECORDS SUMMARY | 2023-10-05 09:50 | XMS_ITS | Continuity of Care Document ---
Author Name Unknown Organization [facility] Address [address] [place] [address]- Care Team Providers Care Bottom Precipitator Operator Name Role Phone Michael Zafar MD Primary Care Physician En[place] [facility] [place] R [id number] Date(s): 04/23/21 - 04/30/21 [facility] Adult [address] [place] [address]- Encounter Diagnosis Chronic gout(Discharge Diagnosis) - 04/23/21 Insomnia(Discharge Diagnosis) - 04/23/21 Benign Essential Hypertension(Discharge Diagnosis) - 04/23/21 Attending Physician: Michael Zafar MD Allergies, Adverse [...] 08/07/14 Give n influenza virus vaccine, inactivated 9/19/13 Give n influenza virus vaccine, inactivated 11/27/10 [...] Given 1Result Comment: Pfizer right deltoid lot [id number] exp 06-06-2021 [facility] 2Location History: [place] 3Rrenée Comment: [06/30/2017] HIGH DOSE RECIEVED AT [facility] 4Rrenée Comment: [08/12/2015] Received at [facility] [place] 5Admin Note: GIVEN IN CLINIC [facility] 6Admin [...] 03/25/21 10:33:00 EDT, Route to Pharmacy Electronically, [facility]/pharmacy #[id number], 175, cm, 03/20/21 12:09:00 EDT, Height, 79, kg, 11/26/20 11:00:00 EST, Dry Weight Start Date: 03/25/21 Status: Ordered amLODIPine 5 mg oral tablet 5 mg, 1, tablet, By Mouth, Daily, # 90 tablet, Refills 1, Tot. Refills 1, Maintenance, 03/14/21 5:46:00 EDT, Route to Pharmacy Electronically, [facility]/pharmacy #0315, 175, cm, 02/06/21 [...] 3 Refills, Maintenance, 03/17/21 11:43:00 EDT, [id number], 175, cm, 02/06/21 10:40:00 EDT, Height, 79, kg, 11/26/20 11:00:00 EST, Dry Weight Start Date: 03/17/21 Status: Ordered Lasix 20 mg oral tablet See Instructions, 1 tablet By Mouth as needed for weight gain of 2lbs in a day or 5lbs in a week, #90 tablet, Refills 3, Tot. Refills 3, Maintenance, 12/17/19 11:49:00 EST, Instructions Replace Required Details, Route to Pharmacy Electronically, [facility]/... Start Date: 12/17/19 Status: [...] 1 Refills, Maintenance, 02/07/21 22:44:00 EDT, Tablet, [facility]/pharmacy #[id number], Rx resent from 11/03/16., 175, cm, 02/06/21 10:40:00 EDT, Height,79, kg, 11/26/20 11:00:00 EST, Dry Weight Start Date: 02/07/21 Status: Ordered LORazepam 1 mg oral tablet 1 tablet = 1 mg, By Mouth, Daily at bedtime, # 30 tablet, 0 Refills, Maintenance, 04/16/21 12:14:00EDT, [facility]/pharmacy #0315, 175, cm, 03/20/21 12:09:00 EDT, Height, 79, kg, 11/26/20 11:00:00 EST, DryWeight Start Date: 04/16/21 Status: Ordered magnesium oxide 400 mg oral tablet 1 tablet = 400 mg, By Mouth, Daily, # 90 tablet, 3 Refills, Maintenance, 02/12/21 17:31:00 EDT, Tablet, [facility]/pharmacy #0315, Partial fill upon [...] Refills, Maintenance, 02/07/21 22:44:00 EDT, EC Tablet, [facility]/pharmacy #0315, 175, cm, 02/06/21 10:40:00 EDT, Height, 79, kg, 11/26/20 11:00:00 EST, Dry Weight Start Date: 02/07/21 Status: Ordered tamsulosin 0.4 mg oral capsule 0.4 mg, By Mouth, Daily at bedtime, # 90 capsule, Refills 1, Tot. Refills 1, Maintenance, 02/07/21 22:44:00 EDT, Route to Pharmacy Electronically, [facility]/pharmacy #[id number], 175, cm, 02/06/21 10:40:00 EDT, Height, 79, kg, 11/26/20 11:00:00 EST, Dry Weight Start Date: 02/07/21 Status: Ordered thiamine 100 mg oral tablet 100 mg, 1, tablet, By Mouth, Daily, # 30 tablet, Refills 11, Tot. 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 12giardiam,o/p ,culture neg 13normal IGA/TTG 14workup 15urology addressing [id number] 17ortho 18chronic 19RFA 20djd xray 2-015 21xray 2004 LS arthritis etc 22BCG 23carcinoma in situ 24saw ortho 25s aw ortho;injected SEVERE pain 26endocrinology addressing 27MRI pti ;refer endo 28mri c spine 2014 29per hematology ? 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;to follow 30workup in progress Diagnosis Diagnosis Type Effective Dates Health Status Clinical Service Informant Chronic gout Discharge Diagnosis 04/23/21 Insomnia Discharge Diagnosis 04/23/21 Benign Essential Hypertension Discharge Diagnosis 04/23/21 Vital Signs Most recent to oldest [Reference Range]: 1 Height 175 cm (04/23/21 12:45 PM) Weight 84.7 kg (04/23/21 12:45 PM) Oxygen Saturation [94-100 %] 97 % (04/23/21 12:45 PM) Pulse Rate [55-90 bpm] 86 bpm (04/23/21 12:45 PM) Body Mass Index [18.5-24.99] 27.66 *H* (04/23/21 12:45 PM) Blood Pressure [90-138/55-84 mm Hg] 132/ 64mm Hg (04/23/21 12:45 PM) Respiratory Rate [16-30 br/min] 14 br/mi n *L* (04/23/21 12:45 PM) Blood pressure sites Arm, left (04/23/21 12:45 PM) Social History Social History Type Response Smoking Status Former smoker, quit more than 30 days ago entered on: 03/01/19 Sex
--- OUTSIDE RECORDS SUMMARY | 2023-10-05 09:50 | XMS_ITS | Continuity of Care Document ---
Author Name Unknown Organization [facility] [place] Tom [facility] Address [address] [place] [address]- Care Team Providers Care Mathematics Faculty Member Name Role Phone Michael Zafar MD Primary Care Physician [phone] Encounter [facility] [place] [place] ACCT R [id number] Date(s): 09/24/21 - 12/24/21 [facility] Adult [address] [place] [address]- Attending Physician: Not on Staff, Attending MD [...] Vaccine (oldterm) 11/07/98 Given 1Result Comment: [facility]# [address] [phone] 2Location History: [place] 3Rrenée Comment: [06/30/2017] HIGH DOSE RECIEVED AT [facility] 4Rrenée Comment: [08/12/2015] Re[place] [facility] [place] 5Result Comment: Pfizer right deltoid lot [id number] exp 06-06-2021 [facility] 6Admin Note: GIVEN IN CLINIC SHAM [...] 09/01/21 11:50:00 EDT, Route to Pharmacy Electronically, [facility], 175, cm, 08/12/21 15:35:00 EDT, Height, 84.1, kg, 06/07/21 4:26:00 EDT,... Start Date: 09/01/21 Status: Ordered amLODIPine 5 mg oral tablet See Instructions, 1/2 at night, # 45 each, Refills 1, Tot. Refills 1, Maintenance, 06/08/21 11:27:00 EDT, Instructions Replace Required Details, Route to Pharmacy Electronically, [facility]/pharmacy #[id number], 175, cm, 06/07/21 8:16:00 EDT, [...] 90 tablet, 1 Refills, 09/01/21 11:50:00 EDT, [facility], 175, cm, 08/12/21 15:35:00 EDT, Height, 84.1, kg, 06/07/21 4:26:00 EDT, Dry Weight Start Date: 09/01/21 Status: Ordered Eliquis 2.5 mg oral tablet 1 tablet, By Mouth, 2 times a day, # 180 tablet, 3 Refills, Maintenance, 03/17/21 11:43:00 EDT, [id number], 175, cm, 02/06/21 10:40:00 EDT, Height, 79, [...] 30 tablet, 0 Refills, Maintenance, 12/03/21 12:37:00EST, [facility], 175, cm, 10/12/21 14:45:00 EST, Height, 84.1, kg, 06/07/21 4:26:00 EDT, Dry Weight Start Date: 12/03/21 Status: Ordered magnesium oxide 400 mg oral tablet 1 tablet = 400 mg, By Mouth, Daily, # 90 tablet, 3 Refills, Maintenance, 02/12/21 17:31:00 EDT, Tablet, [facility]/pharmacy #[id number], Partial fill upon patient request [...] 90 capsule, 0 Refills, 09/01/21 11:50:00 EDT, [facility], 175, cm, 08/12/21 15:35:00 EDT, Height, 84.1, kg, 06/07/21 4:26:00 EDT, Dry Weight Start Date: 09/01/21 Status: Ordered predniSONE 50 mg oral tablet 1 tablet = 50 mg, By Mouth, Daily, in am with food, # 3 tablet, 0 Refills, Maintenance, 10/12/21 15:26:00 EST, Tablet, [facility]/pharmacy #[id number], Partial fill upon patient request if the prescription is fora schedule II opioid drug., 175, cm, 10/12/21 14:45... Start Date: 10/12/21 Status: Ordered tamsulosin 0.4 mg oral capsule 1, capsule, By Mouth, Daily at bedtime, # 90 capsule, Refills 1, Tot. Refills 0, Maintenance, 05/08/21 14:24:00 EDT, Route to Pharmacy Electronically, [id number], 175, cm, 04/29/21 10:36:00 EDT,Height, 79, kg, 11/26/20 11:00:00 EST, Dry Weight Start Date: 05/08/21 Status: Ordered thiamine 100 mg oral tablet 100 mg, 1, tablet, By Mouth, Daily, # 30 tablet, Refills 11, Tot. 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, 27, 28 Active Restless legs syndrome (RLS)(Confirmed) Active Thrombocytopenia(Confirmed) 29, 30 06/22/09 Active Tricuspid insufficiency(Confirmed) Active Trochanteric bursitis of rig ht hip(Confirmed) Active Type 2 diabetes with nephropathy(Confirmed) Active Type 2 diabetes mellitus wit h peripheral angiopathy(Confirmed) Active 1educated about use epi pen /when call 2CARPENTIER PERICARDIAL VALVE [facility] 15023 41 graft 5CABG 2002 6Dr nini addressing 7nephrolithiasis 8to workup 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 12giardiam,o/p ,culture neg 13normal IGA/TTG 14workup 15urology addressing [id number] 17ortho 18chronic 19RFA 20djd xray 2-015 21xray [...]
--- OUTSIDE RECORDS SUMMARY | 2023-10-05 09:50 | XMS_ITS | Continuity of Care Document ---
Author Name Unknown Organization [facility] Tom [facility] Address [address] [place] [address]- Care Team Providers Care Visual Communications Instructor Name Role Phone Ju [employer]NE OPERATIONS SUPERINTENDENT, Giovana Chiu Primary Care Physician [facility]counter [facility] Date(s): 01/11/23 - 02/10/23 [facility] Adult [address] [place] [address]- Allergies, Adverse Reactions, Alerts Substance Reaction Severity [...] vaccine, inactivated 11/27/10 Give n SARS-CoV-2 mRNA (pkosjep-caze-hllxy) vax 5 04/29/22 Given SARS-CoV-2 (COVID-19) mRNA [...] [facility]# [address] [phone] 2Location History: [place] 3Result Comment: [06/30/2017] HIGH DOSE RECIEVED AT [facility] 4Resconstance Comment: [08/12/2015] [place] at [facility] [place] 5Result Comment: [facility][id number] 6Result Comment: Pfizer right deltoid lot [id number] exp 06-06-2021 [facility] 7Admin Note: GIVEN IN CLINIC [...] 09/05/22 12:57:00 EDT, Route to Pharmacy Electronically, [facility], 175, cm, 07/22/22 14:43:00 EDT, Height, 84.1, kg, 06/07/21 4:26:00 EDT, Dry Weight Start Date: 09/05/22 Status: Ordered amLODIPine 5 mg oral tablet 1 tablet, By Mouth, Daily, # 90 tablet, 1 Refills, Maintenance, 08/07/22 10:52:00 EDT, [facility], 175, cm, 07/22/22 14:43:00 EDT, Height, [...] 90 tablet, 1 Refills, 11/24/22 14:41:00 EST, [facility], 175, cm, 09/29/22 12:43:00 EST, Height, 84.1, kg, 06/07/21 4:26:00 EDT, Dry Weight Start Date: 11/24/22 Status: Ordered Eliquis 2.5 mg oral tablet 1 tablet, By Mouth, 2 times a day, # 180 tablet, 9 Refills, [facility], 175, cm, 02/09/22 10:10:00 EDT, Height, 84.1, kg, 06/07/21 4:26:00 EDT, Dry Weight Start Date: 02/10/22 Status: Ordered LORazepam 1 mg oral tablet 1 tablet = 1 mg, By Mouth, Daily at bedtime, 11/09 - 01/07/2312/10 delivery Tuesday02/04/23, start taking02/06/2301/07 - 03/08/23, # 30 tablet, 2 Refills, Maintenance, 11/24/22 14:36:00 EST, [facility], 175, cm, 09/29/22 12:43:00 EST... Start Date: 11/24/22 Status: Ordered magnesium oxide 400 mg oral tablet 1 tablet, By Mouth, Daily, # 90 tablet, 11 Refills, Maintenance, 08/09/22 9:27:00 EDT, [facility], 175, cm, 07/22/22 14:43:00 EDT, Height, 84.1, kg, 06/07/21 4:26:00 EDT, Dry Weight Start Date: 08/09/22 Status: Ordered Melatonin Daily at bedtime, 0 Refills, Maintenance, 01/24/23 11:27:00 EDT Start Date: 01/24/23 Status: Ordered nystatin topical 828489 u/gm powder 1 application, Topically, 2 times a day, # 60 Gm, 5 Refills, Maintenance, 01/14/22 10:20:00 EST, Powder, [facility], Partial fill upon patient request if the prescription is for a schedule II opioid drug., 1 application Topically... Start Date: 01/14/22 Status: Ordered omeprazole 20 mg oral enteric coated capsule 1 capsule, By Mouth, Daily, # 90 capsule, 0 Refills, Maintenance, 11/24/22 14:41:00 EST, [facility], 175, cm, 09/29/22 12:43:00 EST, Height, 84.1, kg, 06/07/21 4:26:00 EDT, Dry Weight Start Date: 11/24/22 Status: Ordered tamsulosin 0.4 mg oral capsule 1, capsule, By Mouth, Daily at bedtime, # 90 capsule, Refills 1, Tot. Refills 1, 11/24/22 14:41:00 EST, Route to Pharmacy Electronically, [facility], 175, cm, 09/29/22 12:43:00 EST, Height, 84.1, kg, 06/07/21 4:26:00 EDT, Dry Weight Start Date: 11/24/22 Status: Ordered Vitamin B1 100 mg oral tablet 1, tablet, By Mouth, Daily, # 30 tablet, Refills 11, Maintenance, 08/09/22 9:27:00 EDT, Route to Pharmacy Electronically, [facility], 175, cm, 07/22/22 14:43:00 EDT, Height, [...] Active Anxiety Confirmed Active Aortic valve prosthesis [id number] TAVR 2017 2, 3 Confirmed Active Arteriosclerotic [...] Confirmed 07/22/22 Active PAF (paroxysmal atrial fibrillation) [id number] 6 Confirmed Active Pituitary microadenoma 26, 27, [...] PERICARDIAL VALVE [facility] 14771 41 graft 5CABG 2002 6Dr nini addressing 7nephrolithiasis 8to workup 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 12giardiam,o/p ,culture neg 13normal IGA/TTG 14workup 15urology addressing [id number] 17ortho 18chronic 19RFA 20djd xray 2-015 21xray [...] Team Personnel Name: Giovana Dodd NP Position: [facility] PCO Associate Professional Member Role: PCP Address: Address: [address] [place] [address]- [place] Name: Adam Dennis MD Position: [facility] Cardiology MD Member Role: Lifetime Consulting Physician Address: Address: [address] [place] [address] [address] [place] [address]- Name: Julia Yu RN Position: [facility] RN Member Role: Primary Care Nurse Name: Jo Dillon RN Position: S RN Member Role: Primary Care Nurse Name: Anh Pires RN Position: S RN Member Role: Primary Care Nurse Name: Lonnie Puente Position: S RN Member Role: Primary Care Nurse Name: Jaqueline Johnson RN Position: S RN Member Role: Primary Care Nurse Name: Kathy Garcia RN Position: [facility] RN Member Role: Primary Care Nurse Name: Viki Collazo RN Position: [facility] RN Member Role: Primary Care Nurse Care Team Related Persons Name: SARWAT HENRIQUEZ Address: home [address] [place] [address] Name: JOSEFINA CONTRERAS Address: home [address] [place] [address]
--- OUTSIDE RECORDS SUMMARY | 2023-10-05 09:50 | XMS_ITS | Continuity of Care Document ---
Author Name Unknown Organization [facility] [place] Tom [facility] Address [address] [place] [address]- Care Team Providers Care Gambling Cashier Name Role Phone Leo Breen DO Primary Care Physician [phone] Encounter [facility] Date(s): 07/05/23 - 08/04/23 [facility] Adult [address] [place] [address]- Allergies, Adverse Reactions, Alerts Substance Reaction Severity Status lisinopril 1, 2 Active Bee Stings Active carvedilol 3 Active citalopram dizzy Active Percocet vomiting Active Effexor dizziness Active Remeron 4 dizziness Active Welchol muscle and joint aches Activ e Lactose 5, 6 diarrhea Active FLUoxetine dizziness Active traZODone Active Percocet 5/325 7 Active 1cough 2possible [...] vaccine, inactivated 11/27/10 Give n SARS-CoV-2 mRNA (pbhtcxg-mrwa-sljss) vax 6 04/29/22 Given SARS-CoV-2 (COVID-19) mRNA [...] Pneumococcal Vaccine (oldterm) 11/07/98 Given 1Result Comment: [id number] 2Result Comment: [facility]# [address] [phone] [facility] 4Result Comment: [06/30/2017] HIGH DOSE RECIEVED AT [facility] 5Resconstance Comment: [08/12/2015] Received [place] [facility] [place] 6Result Comment: [facility]-[id number] 7Result Comment: Pfizer right deltoid lot [id number] exp 06-06-2021 [facility] 8Admin Note: GIVEN IN CLINIC SHAM 9Admin [...] 04/07/23 14:29:00 EDT, Route to Pharmacy Electronically, [facility], 175, cm, 03/16/23 12:17:00 EDT, Height, 84.1, kg, 06/07/21 4:26:00 EDT, Dry Weight Start Date: 04/07/23 Status: Ordered amLODIPine 5 mg oral tablet 1 tablet, By Mouth, Daily, # 90 tablet, 1 Refills, Maintenance, 07/05/23 13:28:00 EDT, [facility], 175, cm, 06/13/23 13:20:00 EDT, Height [...] tablet, 1 Refills, Maintenance, 05/13/23 10:04:00 EDT, [facility], 175, cm, 04/12/23 11:54:00 EDT, Height, 84.1, kg, 06/07/21 4:26:00 EDT, Dry Weight Start Date: 05/13/23 Status: Ordered Eliquis 2.5 mg oral tablet 1 tablet, By Mouth, 2 times a day, # 180 tablet, 9 Refills, 02/18/23 17:26:00 EDT, [facility], 175, cm, 01/24/23 11:05:00 EDT, Height, [...] Replace Required Details, Route to Pharmacy Electronically, [facility], 175, cm, 06/13/23... Start Date: 06/17/23 Status: Ordered LORazepam 0.5 mg oral tablet See Instructions, take as directed altrating with 1mg dose, # 12 each, 1 Refills, Maintenance, 07/27/23 10:26:00 EDT, Tablet, [facility], starting to wean down Partial fill upon patient request if the prescription is for a schedul... Start Date: 07/27/23 Status: Ordered LORazepam 1 mg oral tablet 1 tablet = 1 mg, By Mouth, Daily at bedtime, PRN as needed for anxiety, taper as directed, # 30 tablet, 1 Refills, Maintenance, 06/16/23 8:19:00 EDT, [facility], 175, cm, 06/13/2313:20:00 EDT, Height Start Date: 06/16/23 Status: Ordered magnesium oxide 400 mg oral tablet 1 tablet, By Mouth, Daily, # 90 tablet, 11 Refills, Maintenance, 08/09/22 9:27:00 EDT, [facility], 175, cm, 07/22/22 14:43:00 EDT, Height, 84.1, kg, 06/07/21 4:26:00 EDT, Dry Weight Start Date: 08/09/22 Status: Ordered nystatin topical 987016 u/gm powder 1 application, Topically, 2 times a day, # 60 Gm, 1 Refills, Maintenance, 07/17/23 18:25:00 EDT, Powder, [facility], 1 application Topically 2 times a day, 175, cm, 06/13/23 13:20:00 EDT, Height Start Date: 07/17/23 Status: Ordered omeprazole 20 mg oral enteric coated capsule 1 capsule, By Mouth, Daily, # 90 capsule, 1 Refills, Maintenance, 06/13/23 13:22:00 EDT, [facility], 175, cm, 06/13/23 13:20:00 EDT, Height Start Date: 06/13/23 Status: Ordered tamsulosin 0.4 mg oral capsule 1, capsule, By Mouth, Daily at bedtime, # 90 capsule, Refills 1, Maintenance, 05/13/23 10:04:00 EDT, Route to Pharmacy Electronically, [facility], 175, cm, 04/12/23 11:54:00 EDT,Height, 84.1, kg, 06/07/21 4:26:00 EDT, Dry Weight Start Date: 05/13/23 Status: Ordered Vitamin B1 100 mg oral tablet 1, tablet, By Mouth, Daily, # 30 tablet, Refills 11, Maintenance, 08/09/22 9:27:00 EDT, Route to Pharmacy Electronically, [facility], 175, cm, 07/22/22 [...] Active Anxiety Confirmed Active Aortic valve prosthesis [id number] TAVR 2017 1, 2 Confirmed Active Arteriosclerotic [...] Confirmed 07/22/22 Active PAF (paroxysmal atrial fibrillation) [id number] 6 Confirmed Active 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 11giardiam,o/p ,culture neg 12normal IGA/TTG 13workup [id number] 15chronic 16RFA 17djd xray 2-015 18xray 2004 [...] Team Personnel Name: Giovana Dodd NP Position: [facility] PCO Associate Professional Member Role: Lifetime Consulting Provider Address: Address: [address] [place] [address]- [place] Name: Adam Dennis MD Position: [facility] Cardiology MD Member Role: Lifetime Consulting Physician Address: Address: [address] [place] [address] [address] [place] [address]- [place] Name: Julia Yu RN Position: S RN Member Role: Primary Care Nurse Name: Jo Dillon RN Position: S RN Member Role: Primary Care Nurse Name: Anh Pires RN Position: S RN Member Role: Primary Care Nurse Name: Lonnie Puente RN Position: [facility] RN Member Role: Primary Care Nurse Name: Jaqueline Johnson RN Position: S RN Member Role: Primary Care Nurse Name: Deb Brito Position: [facility] MA Talent Manager Member Role: Truck Driver Rubbish Collector Name: Leo Breen DO Position: [facility] Physician - Primary Care Member Role: PCP Address: Address: [address] [place] [address] Name: Vale CHUN, Viki Eduardo Position: [facility] RN Member Role: Primary Care Nurse Care Team Related Persons Name: SARWAT HENRIQUEZ Address: [address] [place] [address] Name: JOSEFINA CONTRERAS Address: home [address] [place] [address]
--- OUTSIDE RECORDS SUMMARY | 2023-10-05 09:50 | XMS_ITS | Continuity of Care Document ---
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 Name Role Phone Ju Giovana BROWN Primary Care Physician [phone] [place] [facility] 03/06[place]23 - 04/05/23 [facility] [address] [place] [address]- Attending Physician: Ju Chavez Admitting Physician: Ju [...] Active Percocet 5/325 7 Active 1cough 2possible 3nightmares 4blurred vision 5Patient [...] vaccine, inactivated 11/27/10 Give n SARS-CoV-2 mRNA (pyfbmyb-azyp-vwgds) vax 6 04/29/22 Given SARS-CoV-2 (COVID-19) mRNA [...] Pneumococcal Vaccine (oldterm) 11/07/98 Given 1Result Comment: [id number] 2Result Comment: [facility]# [address] [phone] 3Location History: [place] 4Result Comment: [06/30/2017] HIGH DOSE RECIEVED AT [facility] 5Result Comment: [08/12/2015] Received at [facility] 6Result Comment: [facility]-[id number] 7Result Comment: Pfizer right deltoid lot [id number] exp 06-06-2021 [facility] 8Admin Note: GIVEN IN CLINIC SHAM 9Admin [...] 90 tablet, 1 Refills, 11/24/22 14:41:00 EST, [facility], 175, cm, 09/29/22 12:43:00 EST, Height, 84.1, kg, 06/07/21 4:26:00 EDT, Dry Weight Start Date: 11/24/22 Status: Ordered Eliquis 2.5 mg oral tablet 1 tablet, By Mouth, 2 times a day, # 180 tablet, 9 Refills, 02/18/23 17:26:00 EDT, [facility], 175, cm, 01/24/23 11:05:00 EDT, Height, 84.1, kg, 06/07/21 4:26:00 EDT, Dry Weight Start Date: 02/18/23 Status: Ordered furosemide 20 mg oral tablet 20 mg, 1, tablet, By Mouth, Daily, for 30 days, # 30 tablet, Refills 0, Tot. Refills 0, Acute 04/15/23 12:48:00 EDT, 03/16/23 12:48:00 EDT, Route to Pharmacy Electronically, [facility]/pharmacy #[id number], =, 175, cm, 03/16/23 12:17:00 EDT, Height, 84.1, kg, 08/0... Start Date: 03/16/23 Stop Date: 04/15/23 Status: Ordered LORazepam 1 mg oral tablet 1 tablet = 1 mg, By Mouth, Daily at bedtime, 11/09 - 03/08/2312/10 - 04/07/2301/07 delivery Sunday 05/06, start taking 05/07/23, # 30 tablet, 2 Refills, Maintenance, 02/18/23 10:24:00 EDT, [facility], 175, cm, 01/24/23 11:05:00 EDT,... Start Date: 02/18/23 Status: Ordered magnesium oxide 400 mg oral tablet 1 tablet, By Mouth, Daily, # 90 tablet, 11 Refills, Maintenance, 08/09/22 9:27:00 EDT, [facility], 175, cm, 07/22/22 14:43:00 EDT, Height, 84.1, kg, 06/07/21 4:26:00 EDT, Dry Weight Start Date: 08/09/22 Status: Ordered Melatonin Daily at bedtime, 0 Refills, Maintenance, 01/24/23 11:27:00 EDT Start Date: 01/24/23 Status: Ordered nystatin topical 571509 u/gm powder 1 application, Topically, 2 times [...] capsule, 0 Refills, Maintenance, 03/08/23 9:16:00 EDT, [facility], 175, cm, 01/24/23 11:05:00 EDT, Height, 84.1, kg, 06/07/21 4:26:00 EDT, Dry Weight Start Date: 03/08/23 Status: Ordered tamsulosin 0.4 mg oral capsule 1, capsule, By Mouth, Daily at bedtime, # 90 capsule, Refills 1, Tot. 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 1, 2 Confirmed Active Arteriosclerotic heart disease (ASHD) cabg 2002;x1 3, 4 Confirmed Active Benign Essential Hypertension Confirmed Active Benign essential microscopic hematuria 5, 6, 7 Confirmed 12/20/08 Active BPH without urinary obstruction 8 Confirmed Active Sensory hearing loss, bilateral [...] Confirmed Active Nephrolithiasis Confirmed Active Knee osteoarthritis 21 Confirmed Active Breast pain, left refer breast center Confirmed 07/22/22 Active PAF (paroxysmal atrial fibrillation) [id number] 6 Confirmed Active Pituitary microadenoma 22, 23, 24 Confirmed Active Restless legs syndrome (RLS) Confirmed Active Thrombocytopenia hematology 2008 ? 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 11giardiam,o/p ,culture neg 12normal IGA/TTG 13workup [id number] 15chronic 16RFA 17djd xray 2-015 18xray 2005 LS arthritis etc 19BCG 20carcinoma in situ 21saw ortho 22endocrinology addressing 23MRI pti ;refer endo 24mri c spine 2014 25per hematology ? 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;to follow 26workup in progress Social History Social History Type Response Smoking Status Former smoker, quit more than 30 days ago; Type: Cigarettes; Type: Cigars entered on: 01/24/23 Sex Patient Care team information Care Team Personnel Name: Giovana Dodd NP Position: [facility] PCO Associate Professional Member Role: PCP Address: Address: [address] [place] [address]- Name: Adam Dennis MD Position: [facility] Cardiology MD Member Role: Lifetime Consulting Physician Address: Address: [address] [place] [address]- Name: Julia Yu RN Position: [facility] RN Member Role: Primary Care Nurse Name: Jo Dillon RN Position: [facility] RN Member Role: Primary Care Nurse Name: Anh Pires RN Position: S RN Member Role: Primary Care Nurse Name: Lonnie Puente Position: S RN Member Role: Primary Care Nurse Name: Jaqueline Johnson RN Position: [facility] RN Member Role: Primary Care Nurse Name: Viki Collazo RN Position: S RN Member Role: Primary Care Nurse Care Team Related Persons Name: FLORENCE SARWAT Address: [address] [place] [address] Name: JOSEFINA CONTRERAS Address: [address] [place] [address]
--- OUTSIDE RECORDS SUMMARY | 2023-10-05 09:50 | XMS_ITS | Continuity of Care Document ---
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 Role Phone Michael Zafar MD Primary Care Physician Encounter [facility] [place] [facility] [id number] Date(s): 12/31/21 - 01/07/22 [facility] Adult [address] [place] [address]- Encounter Diagnosis Gout flare(Discharge Diagnosis) - 12/31/21 Attending Physician: Michael Zafar MD Allergies, Adverse Reactions, Alerts Substance Reaction Severity Status lisinopril 1, 2 Active Bee Stings Active Welchol muscle and joint aches Activ e gabapentin unknown Active carvedilol 3 Active citalopram dizzy Active Percocet vomiting Active Effexor dizziness Active Remeron 4 dizziness Active FLUoxetine dizziness Active Lactose 5, 6 [...] Vaccine (oldterm) 11/07/98 Given 1Result Comment: [facility]# [address] [phone] 2Location History: [place] 3Resconstance Comment: [06/30/2017] HIGH DOSE RECIEVED AT [facility] 4Rrenée Comment: [08/12/2015] [place] [facility] [place] 5Result Comment: Pfizer right deltoid lot [id number] exp 06-06-2021 [facility] 6Admin Note: GIVEN IN CLINIC SHAM 7Admin [...] 09/01/21 11:50:00 EDT, Route to Pharmacy Electronically, [facility], 175, cm, 08/12/21 15:35:00 EDT, Height, 84.1, kg, 06/07/21 4:26:00 EDT,... Start Date: 09/01/21 Status: Ordered amLODIPine 5 mg oral tablet See Instructions, 1/2 at night, # 45 each, Refills 1, Tot. Refills 1, Maintenance, 06/08/21 11:27:00 EDT, Instructions Replace Required Details, Route to Pharmacy Electronically, [facility]/pharmacy #[id number], 175, cm, 06/07/21 8:16:00 EDT, [...] 90 tablet, 1 Refills, 09/01/21 11:50:00 EDT, [facility], 175, cm, 08/12/21 15:35:00 EDT, Height, 84.1, kg, 06/07/21 4:26:00 EDT, Dry Weight Start Date: 09/01/21 Status: Ordered Eliquis 2.5 mg oral tablet 1 tablet, By Mouth, 2 times a day, # 180 tablet, 3 Refills, Maintenance, 03/17/21 11:43:00 EDT[id number], 175, cm, 02/06/21 10:40:00 EDT, Height, 79, [...] LATER, 09/14/19 11:53:13 EST, Compound Start Date: 11/8/19 Status: Ordered LORazepam 1 mg oral tablet 1 tablet = 1 mg, By Mouth, Daily at bedtime, # 30 tablet, 0 Refills, Maintenance, 12/30/21 16:06:00EST, [facility], 175, cm, 10/12/21 14:45:00 EST, Height, 84.1, kg, 06/07/21 4:26:00 EDT, Dry Weight Start Date: 12/30/21 Status: Ordered magnesium oxide 400 mg oral tablet 1 tablet = 400 mg, By Mouth, Daily, # 90 tablet, 3 Refills, Maintenance, 02/12/21 17:31:00 EDT, Tablet, [facility]/pharmacy #[id number], Partial fill upon patient request [...] 90 capsule, 0 Refills, 09/01/21 11:50:00 EDT, [facility], 175, cm, 08/12/21 15:35:00 EDT, Height, 84.1, kg, 06/07/21 4:26:00 EDT, Dry Weight Start Date: 09/01/21 Status: Ordered predniSONE 50 mg oral tablet 1 tablet = 50 mg, By Mouth, Daily, first dose tonight then take in morning with food or milk, # 4 tablet, 0 Refills, Maintenance, 12/31/21 16:26:00 EST, Tablet, [facility]/pharmacy #[id number], Partial fill upon patient request if the prescription is for a schedu... Start Date: 12/31/21 Status: Ordered tamsulosin 0.4 mg oral capsule 1, capsule, By Mouth, Daily at bedtime, # 90 capsule, Refills 1, Tot. Refills 0, Maintenance, 05/08/21 14:24:00 EDT, Route to Pharmacy Electronically, [id number], 175, cm, 04/29/21 10:36:00 EDT,Height, 79, kg, 11/26/20 11:00:00 EST, Dry Weight Start Date: 05/08/21 Status: Ordered thiamine 100 mg oral tablet 100 mg, 1, tablet, By Mouth, Daily, # 30 tablet, Refills 11, Tot. Refills 11, Maintenance, 10/05/2116:07:00 EST, Route to Pharmacy Electronically, [facility], 175, cm, 09/23/21 12:36:00 EST, Height, [...] Active Anxiety(Confirmed) Active Aortic valve prosthesis pres [id number] TAVR 2017(Confirmed) 2, 3 Active Arteriosclerotic heart [...] 08/09/19 Active H/O endarterectomy RT 2009,l eft 2021 DEC(Confirmed) Active S/P TAVR (transcatheter aort ic [...] 25 Active PAF (paroxysmal atrial fibri llation) [id number] 6(Confirmed) Active 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, 27, 28 Active Restless legs syndrome (RLS)(Confirmed) Active Thrombocytopenia(Confirmed) 29, 30 06/22/09 Active Tricuspid insufficiency(Confirmed) Active Trochanteric bursitis of rig ht hip(Confirmed) Active Type 2 diabetes with nephropathy(Confirmed) Active Type 2 diabetes mellitus wit h peripheral angiopathy(Confirmed) Active 1educated about use epi pen /when call 2[employer] [facility] [address] 41 graft 5CABG 2002 6Dr nini addressing 7nephrolithiasis 8to workup 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 12giardiam,o/p ,culture neg 13normal IGA/TTG 14workup 15urology addressing [id number] 17ortho 18chronic 19RFA 20djd xray 2-015 21xray 2004 LS arthritis etc 22BCG 23carcinoma in situ 24saw ortho 25s aw ortho;injected SEVERE pain 26endocrinology addressing 27MRI pti [id number];refer endo 28mri c spine 2014 29per hematology ? 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;to follow 30workup in progress Diagnosis Diagnosis Type Effective Dates Health Status [facility] Service Informant Gout flare Discharge Diagnosis 12/31/21 Vital Signs Most recent to oldest [Reference Range]: 1 Height 175 cm (12/31/21 3:28 PM) Social History Social History Type Response Smoking Status Former smoker, quit more than 30 days ago entered on: 03/01/19 Sex
--- OUTSIDE RECORDS SUMMARY | 2023-10-05 09:50 | XMS_ITS | Continuity of Care Document ---
Author Name Unknown Organization [facility] Anders [facility] Tom lt Address [address] [place] [address]- Care Team Providers Care Test Examiner Name Role Phone Michael Zafar MD Primary Care Physician [phone] Encounter [facility] [place] Date(s): 10/20/20 - 12/26/20 [facility] Gottiley Adult [address] [place] [address]- Attending Physician: Michael Zafar MD Allergies, Adverse Reactions, Alerts Substance Reaction Severity Status lisinopril 1, 2 Active Effexor dizziness Active Bee Stings Active gabapentin unknown Active [...] Fluarix (oldterm) 08/10/11 Given pneumococcal 23-valent vaccine 3/14/11 Given Tet/Diphth/Acel, Pertussis (oldterm) 12/15/10 Give n Influenza Inactive (IM) (oldterm) 07/25/09 Given Influenza Inactive (IM) (oldterm) 5 08/13/08 Given Influenza Inactive (IM) (oldterm) 09/01/07 Given Zoster Vaccine Live 12/25/08 Given tetanus-diphtheria toxoids (Td) 6 02/03/01 Given Pneumococcal Vaccine (oldterm) 11/07/98 Given 1Location History: [place] Comment: [06/30/2017] HIGH DOSE RECIEVED AT [facility] 3Rrenée Comment: [08/12/2015] Received at [facility] [place] 4Ain Note: GIVEN IN CLINIC SHAM 5Admin [...] 10/20/20 11:45:00 EST, [id number], 175, cm, 10/20/20 11:12:00 EST, Height, 80.6, kg, 08/05/20 17:31:00 EDT, Dry Weight Start Date: 10/20/20 Status: Ordered amLODIPine 5 mg oral tablet 5 mg, 1, tablet, By Mouth, Daily, # 30 tablet, Refills 3, Tot. Refills 3, Maintenance, 12/05/20 9:44:00 EST, Route to Pharmacy Electronically, [facility]/pharmacy #[id number], 175, cm, 12/05/20 8:32:00 EST, Height, 79, kg, 11/26/20 11:00:00 EST, Dry Weight Start Date: 12/05/20 Status: Ordered apixaban 2.5 mg oral tablet 1 tablet = 2.5 mg, By Mouth, 2 times a day, # 180 tablet, 3 Refills, Maintenance, 03/05/20 13:50:00EDT, [facility]/pharmacy #[id number], 176.5, cm, 12/25/19 15:48:00 EST, [...] Replace Required Details, Route to Pharmacy Electronically, [facility]/... Start Date: 12/17/19 Status: Ordered LIDODERM [...] 3 Refills, Maintenance, 12/17/19 11:48:00 EST, Tablet, [facility]/pharmacy #[id number], Rx resent from 11/03/16., 176.5, cm, 12/17/19 11:35:00 EST, Height, 83.4, kg, 11/02/18 13:42:00 EST, Dry Weight Start Date: 12/17/19 Status: Ordered LORazepam 1 mg oral tablet 1 tablet = 1 mg, By Mouth, Daily at bedtime, # 30 tablet, 0 Refills, Maintenance, 12/09/20 10:18:00EST, [facility]/pharmacy #[id number], 175, cm, 12/05/20 8:32:00 EST, Height, [...] Refills, Maintenance, 12/17/19 11:48:00 EST, EC Tablet, [facility]/pharmacy #[id number], 176.5, cm, 12/17/19 11:35:00 EST, Height, 83.4, kg, 11/02/18 13:42:00 EST, Dry Weight Start Date: 12/17/19 Status: Ordered tamsulosin 0.4 mg oral capsule 0.4 mg, By Mouth, Daily at bedtime, # 90 capsule, Refills 3, Tot. Refills 3, Maintenance, 12/17/19 11:48:00 EST, Route to Pharmacy Electronically, [facility]/pharmacy #[id number], 176.5, cm, 12/17/19 11:35:00 EST, Height, 83.4, kg, 11/02/18 13:42:00 EST, Dry Weight Start Date: 12/17/19 Status: Ordered thiamine 100 mg oral tablet 100 mg, 1, tablet, By Mouth, Daily, # 30 tablet, Refills 11, Tot. Refills 11, Maintenance, 09/08/2013:24:00 EST, Route to Pharmacy Electronically, [facility]/pharmacy #[id number], 175, cm, 09/08/20 12:47:00 EST,Height, [...] Active Anxiety(Confirmed) Active Aortic valve prosthesis pres [id number] TAVR 2017(Confirmed) 2, 3 Active Arteriosclerotic heart [...] 25 Active PAF (paroxysmal atrial fibri llation) [id number] 6(Confirmed) Active 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, 27, 28 Active Restless legs syndrome (RLS)(Confirmed) Active Thrombocytopenia(Confirmed) 29, 30 06/22/09 Active Tricuspid insufficiency(Confirmed) Active Trochanteric bursitis of rig ht hip(Confirmed) Active Type 2 diabetes with nephropathy(Confirmed) Active Type 2 diabetes mellitus wit h peripheral angiopathy(Confirmed) Active 1educated about use epi pen /when call 2[employer] [facility] [address] 41 graft 5CABG 2002 6Dr nini addressing 7nephrolithiasis 8to workup 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 12giardiam,o/p ,culture neg 13normal IGA/TTG 14workup 15urology addressing [id number] 17ortho 18chronic 19RFA 20djd xray 2-015 21xray [...]
--- OUTSIDE RECORDS SUMMARY | 2023-10-05 09:50 | XMS_ITS | Continuity of Care Document ---
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 [place] Date(s): 11/25/20 - 12/25/20 [facility] [address] [place] [address]- Attending Physician: Ju Chavez Admitting Physician: Admtr, Ju Referring Physician: Admtr, [...] Bradford Comment: [06/30/2017] HIGH DOSE RECIEVED AT [facility] DR Lucero Comment: [08/12/2015] Re[place] [facility] [place] 4Ain Note: GIVEN IN CLINIC SHAM 5Admin [...] 10/20/20 11:45:00 EST, [id number], 175, cm, 10/20/20 11:12:00 EST, Height, 80.6, kg, 08/05/20 17:31:00 EDT, Dry Weight Start Date: 10/20/20 Status: Ordered amLODIPine 5 mg oral tablet 5 mg, 1, tablet, By Mouth, Daily, # 30 tablet, Refills 3, Tot. Refills 3, Maintenance, 12/05/20 9:44:00 EST, [id number], 175, cm, 12/05/20 8:32:00 EST, Height, 79, kg, 11/26/20 11:00:00 EST, Dry Weight Start Date: 12/05/20 Status: Ordered apixaban 2.5 mg oral tablet 1 tablet = 2.5 mg, By Mouth, 2 times a day, # 180 tablet, 3 Refills, Maintenance, 03/05/20 13:50:00EDT, [facility]/pharmacy #[id number], 176.5, cm, 12/25/19 15:48:00 [...] Replace Required Details, Route to Pharmacy Electronically, [facility]/... Start Date: 12/17/19 Status: Ordered [...] 3 Refills, Maintenance, 12/17/19 11:48:00 EST, Tablet, [facility]/pharmacy #[id number], Rx resent from 11/03/16., 176.5, cm, 12/17/19 11:35:00 EST, Height, 83.4, kg, 11/02/18 13:42:00 EST, Dry Weight Start Date: 12/17/19 Status: Ordered LORazepam 1 mg oral tablet 1 tablet = 1 mg, By Mouth, Daily at bedtime, # 30 tablet, 0 Refills, Maintenance, 12/09/20 10:18:00EST, [facility]/pharmacy #[id number], 175, cm, 12/05/20 8:32:00 EST, [...] Refills, Maintenance, 12/17/19 11:48:00 EST, EC Tablet, [facility]/pharmacy #[id number], 176.5, cm, 12/17/19 11:35:00 EST, Height, 83.4, kg, 11/02/18 13:42:00 EST, Dry Weight Start Date: 12/17/19 Status: Ordered tamsulosin 0.4 mg oral capsule 0.4 mg, By Mouth, Daily at bedtime, # 90 capsule, Refills 3, Tot. Refills 3, Maintenance, 12/17/19 11:48:00 EST, Route to Pharmacy Electronically, [facility]/pharmacy #[id number], 176.5, cm, 12/17/19 11:35:00 EST, Height, 83.4, kg, 11/02/18 13:42:00 EST, Dry Weight Start Date: 12/17/19 Status: Ordered thiamine 100 mg oral tablet 100 mg, 1, tablet, By Mouth, Daily, # 30 tablet, Refills 11, Tot. Refills 11, Maintenance, 09/08/2013:24:00 EST, Route to Pharmacy Electronically, [facility]/pharmacy #[id number], 175, cm, 09/08/20 12:47:00 EST,Height, [...] Active Anxiety(Confirmed) Active Aortic valve prosthesis pres [id number] TAVR 2018(Confirmed) 2, 3 Active Arteriosclerotic heart [...] 25 Active PAF (paroxysmal atrial fibri llation) [id number] 6(Confirmed) Active 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, 27, 28 Active Restless legs syndrome (RLS)(Confirmed) Active Thrombocytopenia(Confirmed) 29, 30 06/22/09 Active Tricuspid insufficiency(Confirmed) Active Trochanteric bursitis of rig ht hip(Confirmed) Active Type 2 diabetes with nephropathy(Confirmed) Active Type 2 diabetes mellitus wit h peripheral angiopathy(Confirmed) Active 1educated about use epi pen /when call 2[employer] [facility] [address] 41 graft 5CABG 2002 6Dr nini addressing 7nephrolithiasis 8to workup 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 12giardiam,o/p ,culture neg 13normal IGA/TTG 14workup 15urology addressing [id number] 17ortho 18chronic 19RFA 20djd xray 2-015 21xray [...]
--- OUTSIDE RECORDS SUMMARY | 2023-10-05 09:51 | XMS_ITS | Continuity of Care Document ---
Author Name Unknown Organization [facility] Tom [facility] Address [address] [place] [address]- Care Team Providers Care Alarm Signaler Name Role Phone Ju CAGE FIGHTER, Giovana Chiu Primary Care Physician [phone] Encounter [facility] Date(s): 10/22/22 - 11/21/22 [facility] Adult [address] [place] [address]- Allergies, Adverse Reactions, Alerts Substance Reaction Severity [...] Vaccine Date Status Refusal Reason SARS-CoV-2 mRNA ([id number]) vax 1 04/29/22 Given influenza virus vaccine, [...] Pneumococcal Vaccine (oldterm) 11/07/98 Given 1Result Comment: [facility]-[id number] 2Result Comment: [facility]# [address] [phone] 3Location History: [place] 4Result Comment: [06/30/2017] HIGH DOSE RECIEVED AT [facility] BETTYE MALAVE 5Result Comment: [08/12/2015] Received at [facility] 6Result Comment: Pfizer right deltoid lot [id number] exp 06-06-2021 [facility] 7Admin Note: GIVEN IN CLINIC SHAM [...] 09/05/22 12:57:00 EDT, Route to Pharmacy Electronically, [facility], 175, cm, 07/22/22 14:43:00 EDT, Height, 84.1, kg, 06/07/21 4:26:00 EDT, Dry Weight Start Date: 09/05/22 Status: Ordered amLODIPine 5 mg oral tablet 1 tablet, By Mouth, Daily, # 90 tablet, 1 Refills, Maintenance, 08/07/22 10:52:00 EDT, [facility], 175, cm, 07/22/22 14:43:00 EDT, Height, [...] tablet, 1 Refills, 05/09/22 6:15:00 EDT, [facility], 175, cm, 04/29/22 10:58:00 EDT, Height, 84.1, kg, 06/07/21 4:26:00 EDT, Dry Weight Start Date: 05/09/22 Status: Ordered Eliquis 2.5 mg oral tablet 1 tablet, By Mouth, 2 times a day, # 180 tablet, 9 Refills, [facility], 175, cm, 02/09/22 10:10:00 EDT, Height, 84.1, kg, 06/07/21 4:26:00 EDT, Dry Weight Start Date: 02/10/22 Status: Ordered LORazepam 1 mg oral tablet 1 tablet = 1 mg, By Mouth, Daily at bedtime, 11/09 delivery Tuesday10/08/22, start taking Sat 10/09/22.12/10 delivery Tuesday11/08/2201/07 delivery Tuesday12/08/22, # 30 tablet, 2 Refills, Maintenance, 10/05/22 14:25:00 EST, [facility]... Start Date: 10/05/22 Status: Ordered magnesium oxide 400 mg oral tablet 1 tablet, By Mouth, Daily, # 90 tablet, 1 Refills, Maintenance, 08/09/22 9:27:00 EDT, [facility], 175, cm, 07/22/22 14:43:00 EDT, Height, 84.1, kg, 06/07/21 4:26:00 EDT, Dry Weight Start Date: 08/09/22 Status: Ordered magnesium oxide 400 mg oral tablet 1 tablet, By Mouth, Daily, # 90 tablet, 11 Refills, Maintenance, 08/09/22 9:27:00 EDT, [facility], 175, cm, 07/22/22 14:43:00 EDT, Height, [...] Start Date: 05/05/22 Status: Ordered nystatin topical [id number] u/gm powder 1 application, Topically, 2 times a day, # 60 Gm, 5 Refills, Maintenance, 01/14/22 10:20:00 EST, Powder, [facility], Partial fill upon patient request if the prescription is for a schedule II opioid drug., 1 application Topically... Start Date: 01/14/22 Status: Ordered omeprazole 20 mg oral enteric coated capsule 1 capsule, By Mouth, Daily, # 90 capsule, 0 Refills, Maintenance, 08/07/22 10:53:00 EDT, [facility], 175, cm, 07/22/22 14:43:00 EDT, Height, 84.1, kg, 06/07/21 4:26:00 EDT, Dry Weight Start Date: 08/07/22 Status: Ordered tamsulosin 0.4 mg oral capsule 1, capsule, By Mouth, Daily at bedtime, # 90 capsule, Refills 1, Tot. Refills 1, 05/13/22 12:10:00 EDT, Route to Pharmacy Electronically, [facility], 175, cm, 05/12/22 13:46:00 EDT, Height, [...] 08/09/22 9:27:00 EDT, Route to Pharmacy Electronically, [facility], 175, cm, 07/22/22 14:43:00 EDT, Height, 84.1, kg, 06/07/21 4:26:00 EDT, Dry Weight Start Date: 08/09/22 Status: Ordered Vitamin B1 100 mg oral tablet 1, tablet, By Mouth, Daily, # 30 tablet, Refills 11, Maintenance, 08/09/22 9:27:00 EDT, Route to Pharmacy Electronically, [facility], 175, cm, 07/22/22 14:43:00 EDT, Height, [...] Active Anxiety Confirmed Active 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 2, 3 Confirmed Active Arteriosclerotic heart disease (ASHD) cabg 2002;x1 4, 5 Confirmed Active Benign Essential Hypertension Confirmed Active Benign essential microscopic hematuria 6, 7, 8 Confirmed 2/13/09 Active BPH without urinary obstruction 9 Confirmed [...] (congestive heart failure) systolic Confirmed Active 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 12giardiam,o/p ,culture neg 13normal IGA/TTG 14workup 15urology addressing [id number] 17ortho 18chronic 19RFA 20djd xray 2-015 21xray [...] Care Nurse Name: Giovana Dodd NP Position: [facility] PCO Associate Professional Member Role: PCP Address: Address: [address] [place] [id number]- Name: Adam Dennis MD Position: [facility] Cardiology MD Member Role: Lifetime Consulting Physician Address: Address: [address] [place] [address] [address] [place] [address]- [place] Name: Jo Dillon RN Position: S [...] Persons Name: SARWAT HENRIQUEZ Address: [address] [place] [address] Name: JOSEFINA CONTRERAS Address: home [address] [place] [address]
--- OUTSIDE RECORDS SUMMARY | 2023-10-05 09:51 | XMS_ITS | Continuity of Care Document ---
Author Name Unknown Organization [facility] Address [address] [place] [address]- Care Team Providers Care Finish Production Manager Name Role Phone Michael Zafar MD Primary Care Physician [phone] [place] [facility] [place] 03/12/22 [facility] [address] [place] [address]- Encounter Diagnosis Hyperprolactinemia(Final) - Discharge Disposition: A-D/C Home Attending Physician: Jim Avina MD Admitting Physician: Jim Avina MD Referring Physician: Michael Zafar MD Allergies, [...] Pneumococcal Vaccine (oldterm) 11/07/98 Given 1Result Comment: [facility] [address] [phone] 2Location History: [place] 3Resconstance Comment: [06/30/2017] HIGH DOSE RECIEVED AT [facility] 4Rrenée Comment: [08/12/2015] [place] [facility] [place] 5Result Comment: Pfizer right deltoid lot [id number] exp 06-06-2021 [facility] 6Admin Note: GIVEN IN CLINIC SHAM 7Admin [...] 09/01/21 11:50:00 EDT, Route to Pharmacy Electronically, [facility], 175, cm, 08/12/21 15:35:00 EDT, Height, 84.1, kg, 06/07/21 4:26:00 EDT,... Start Date: 09/01/21 Status: Ordered amLODIPine 5 mg oral tablet 1 tablet, By Mouth, Daily, # 90 tablet, 1 Refills, [facility], 175, cm, 02/09/22 10:10:00 [...] 90 tablet, 1 Refills, 09/01/21 11:50:00 EDT, [facility], 175, cm, 08/12/21 15:35:00 EDT, Height, 84.1, kg, 06/07/21 4:26:00 EDT, Dry Weight Start Date: 09/01/21 Status: Ordered Eliquis 2.5 mg oral tablet 1 tablet, By Mouth, 2 times a day, # 180 tablet, 9 Refills, [facility], 175, cm, 02/09/22 10:10:00 [...] tablet, 0 Refills, Maintenance, 02/23/22 9:27:00 EDT, [facility], 175, cm, 02/09/22 10:10:00 EDT, Height, 84.1, kg, 06/07/21 4:26:00 EDT, Dry Weight Start Date: 02/23/22 Status: Ordered magnesium oxide 400 mg oral tablet 1 tablet, By Mouth, Daily, # 90 tablet, 1 Refills, [facility], 175, cm, 02/09/22 10:10:00 EDT, Height, 84.1, kg, 06/07/21 4:26:00 EDT, Dry Weight Start Date: 02/10/22 Status: Ordered melatonin 5 mg oral tablet By Mouth, Daily at bedtime, 0 Refills, Maintenance, 08/08/20 9:44:00 EDT, Tablet Start Date: 08/08/20 Status: Ordered nystatin topical [id number] u/gm powder 1 application, Topically, 2 times a day, # 60 Gm, 5 Refills, Maintenance, 01/14/22 10:20:00 EST, Powder, [facility], Partial fill upon patient request if the prescription is for a schedule II opioid drug., 1 application Topically... Start Date: 01/14/22 Status: Ordered omeprazole 20 mg oral enteric coated capsule 1 capsule, By Mouth, Daily, # 90 capsule, 0 Refills, [facility], 175, cm, 02/09/22 10:10:00 EDT, Height, 84.1, kg, 06/07/21 4:26:00 EDT, Dry Weight Start Date: 02/10/22 Status: Ordered tamsulosin 0.4 mg oral capsule 1, capsule, By Mouth, Daily at bedtime, # 90 capsule, Refills 0, Route to Pharmacy Electronically, [facility], 175, cm, 02/09/22 10:10:00 EDT, Height, 84.1, kg, 06/07/21 4:26:00 EDT, Dry Weight Start Date: 02/12/22 Status: Ordered thiamine 100 mg oral tablet 100 mg, 1, tablet, By Mouth, Daily, # 30 tablet, Refills 11, Tot. Refills 11, Maintenance, 10/05/2116:07:00 EST, Route to Pharmacy Electronically, [facility], 175, cm, 09/23/21 12:36:00 [...] Active Anxiety(Confirmed) Active Aortic valve prosthesis pres [id number] TAVR 2017(Confirmed) 2, 3 Active Arteriosclerotic heart [...] 25 Active PAF (paroxysmal atrial fibri llation) [id number] 6(Confirmed) Active 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 immune(Confirmed) 29, 30 06/22/09 Active Tricuspid insufficiency(Confirmed) Active Trochanteric bursitis of rig ht hip(Confirmed) Active Type 2 diabetes with nephropathy(Confirmed) Active Type 2 diabetes mellitus wit h peripheral angiopathy(Confirmed) Active 1educated about use epi pen /when call 2[employer]IC[employer] VALVE [facility] 17186 41 graft 5CABG 2002 6Dr nini addressing 7nephrolithiasis 8to workup 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 12giardiam,o/p ,culture neg 13normal IGA/TTG 14workup 15urology addressing [id number] 17ortho 18chronic 19RFA 20djd xray 2-015 21xray 2004 LS arthritis etc 22BCG 23carcinoma in situ 24saw ortho 25s aw ortho;injected SEVERE pain 26endocrinology addressing 27MRI pti ;refer endo 28mri c spine 2014 29per hematology ? 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;to follow 30workup in progress Vital Signs Most recent to oldest [Reference Range]: 1 Height 175 cm (03/05/22 11:48 AM) Weight 83.6 kg (03/05/22 11:48 AM) Pulse Rate [55-90 bpm] 89 bpm (03/05/22 11:48 AM) Body Mass Index [18.5-24.99] 27.3 *H* (03/05/22 11:48 AM) Blood Pressure [90-138/55-84 mm Hg] 135/ 73mm Hg (03/05/22 11:48 AM) Blood pressure sites Arm, right (03/05/22 11:48 AM) Social History Social History Type Response Smoking Status Former smoker, quit more than 30 days ago entered on: 03/01/19 Sex
--- OUTSIDE RECORDS SUMMARY | 2023-10-05 09:51 | XMS_ITS | Continuity of Care Document ---
Author Name Unknown Organization [facility] Address [address] [place] [address]- Care Team Providers Care Will Call Clerk Name Role Phone Charisma LENZ, Michael Boston Primary Care Physician [phone] Encounter [facility] [place] Date(s): 10/15/19 - 10/25/19 [facility] [address] [place] [address]- [facility] Attending Physician: Ju Chavez Admitting Physician: AdmtrJu Referring Physician: Admtr, Ar8 Allergies, Adverse Reactions, [...] Lucero Comment: [06/30/2017] HIGH DOSE RECIEVED AT [facility] DR Kaplan Comment: [08/12/2015] Received at [facility] [place] 5Admin Note: given in clinic 6Admin Note: [...] Maintenance, 08/08/1912:14:22 EDT, Route to Pharmacy Electronically, [id number], [facility]/pharmacy #[id number] Start Date: 08/08/19 Status: Ordered amoxicillin [...] times a day, for 14 days, lot [id number] exp 07/2020 x 2 boxes, lot [id number] exp 12/2020 x3, # 28 tablet, 6 Refills, Hard Stop 03/28/20 11:17:24 EDT, 12/21/19 11:17:24 EST,Tablet Start Date: 12/21/19 Stop Date: 03/28/20 Status: Ordered apixaban 2.5 mg oral tablet 1 tablet = 2.5 mg, By Mouth, 2 times a day, for 14 days, lot [id number] exp 05/2020 #8 BOX, # 28 tablet, [...] Gm, 0 Refills, Maintenance, 10/10/19 11:35:05 EST, [place], 1 sprays Nares, Both 2 times a day, 176.5, cm, 10/10/19 11:18:43 EST, Height, 83.4, kg, 11/02/18 13:42:46 EST, Dry Weight Start Date: 10/10/19 Status: Ordered furosemide 20 mg oral tablet See Instructions, # 90 tablet, Refills 1 Tot. Refills 1, TAKE 1 TABLET BY MOUTH EVERY DAY, [facility]/pharmacy #[id number] Start Date: 08/20/19 Status: Ordered LIDODERM [...] 3 Refills, Maintenance, Tablet, Route toPharmacy Electronically, [id number], [facility] [id number], Rx resent from 11/03/16. Start [...] 07/27/19 11:08:13 EDT, Route to Pharmacy Electronically, [id number], [facility]/pharmacy #[id number] Start Date: 07/27/19 Status: Ordered omeprazole [...] 12/28/18 10:45:55 EST, Route to Pharmacy Electronically, [id number], [facility] [id number] Start Date: 12/28/18 Status: Ordered Tums 500 [...] Active Anxiety(Confirmed) Active Aortic valve prosthesis pres [id number] TAVR 2017(Confirmed) 2, 3 Active Arteriosclerotic heart [...] 25 Active PAF (paroxysmal atrial fibri llation) [id number] 6(Confirmed) Active 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, 27, 28 Active Restless legs syndrome (RLS)(Confirmed) Active Thrombocytopenia(Confirmed) 29, 30 06/22/09 Active Tricuspid insufficiency(Confirmed) Active Trochanteric bursitis of rig ht hip(Confirmed) Active Type 2 diabetes with nephropathy(Confirmed) Active Type 2 diabetes mellitus wit h peripheral angiopathy(Confirmed) Active Active 1educated about use epi pen /when call 2[employer] VALVE [facility] 26942 41 graft 5CABG 2002 6Dr nini addressing 7nephrolithiasis 8to workup 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 12Zung=mod depression 13has seen community relations assistant,[place] RE DIABETIC;risk diabetes 14urology addressing [id number] 16ortho 17chronic 18RFA 19djd xray 2-015 20xray 2005 LS arthritis etc 21BCG 22carcinoma in situ [...]
--- OUTSIDE RECORDS SUMMARY | 2023-10-05 09:51 | XMS_ITS | Continuity of Care Document ---
Author Name Unknown Organization [facility] Anders Bradley Tom lt Address [address] [place] [address]- Care Team Providers Care Field Care Manager Name Role Phone Michael Zafar MD Primary Care Physician [place] [facility] [place] 09/08/20 - 09/15/20 [facility] [address] [place] [address]- Encounter Diagnosis Medicare annual wellness visit, subsequent(Discharge Diagnosis) - 09/08/20 Memory loss(Discharge Diagnosis) - 09/08/20 Impaired mobility and ADLs(Discharge Diagnosis) - 09/08/20 Chronic gout(Discharge Diagnosis) - 09/08/20 Attending Physician: Michael Zafar MD Allergies, Adverse [...] Bradford Comment: [06/30/2017] HIGH DOSE RECIEVED AT [facility] DR Lucero Comment: [08/12/2015] Received at [facility] [place] 4Ain Note: GIVEN IN CLINIC SHAM 5Admin Note: given in clinic 6Admin Note: historical data Medications acetaminophen 325 mg oral tablet 650 mg, By Mouth, Every 4 hours, PRN, Refills 0, Maintenance, Pain , Mild, 11/10/18 15:51:53 EST Start Date: 11/10/18 Status: Ordered allopurinol 100 mg oral tablet 50 mg, 0.5, tablet, By Mouth, Daily, # 15 tablet, Refills 5, Tot. Refills 5, Maintenance, 09/08/20 13:15:00 EST, Route to Pharmacy Electronically, [facility]/pharmacy #[id number], 175, cm, 09/08/20 12:47:00 EST, Height, 80.6, kg, 08/05/20 17:31:00 EDT, Dry Weight Start Date: 09/08/20 Status: Ordered amoxicillin 500 mg oral capsule 4 capsule = 2,000 mg, By Mouth, Once, given 1 hour prior to dental procedure, # 4 capsule, 3 Refills, Soft Stop, 11/12/18 11:08:47 EST Start Date: 11/12/18 Status: Ordered apixaban 2.5 mg oral tablet 1 tablet = 2.5 mg, By Mouth, 2 times a day, # 180 tablet, 3 Refills, Maintenance, 03/05/20 13:50:00EDT, [facility]/pharmacy #[id number], 176.5, cm, 12/25/19 15:48:00 EST, Height, 83.4, kg, 11/02/18 13:42:00 EST,Dry Weight Start Date: 03/05/20 Status: Ordered apixaban 2.5 mg oral tablet 1 tablet = 2.5 mg, By Mouth, 2 times a day, # 5 LOT [id number] EXP 07-28, # 180 tablet, 0 Refills, [...] 30 tablet, 2 Refills, Maintenance, 09/08/20 12:59:00EST, [facility]/pharmacy #[id number], 175, cm, 09/08/20 12:47:00 EST, Height, [...] 06/16/20 9:41:00 EDT, Route to Pharmacy Electronically, [facility]/pharmacy #[id number], succinate, 176.5, cm, 06/13/20 12:04:00 EDT, Height, 83.4, kg, 11/02/18 13:42:00 EST, D... Start Date: 06/16/20 Stop Date: 06/11/21 Status: Ordered omeprazole 20 mg oral delayed release tablet 1 tablet = 20 mg, By Mouth, Daily, # 90 tablet, 3 Refills, Maintenance, 12/17/19 11:48:00 EST, EC Tablet, [facility]/pharmacy #[id number], 176.5, cm, 12/17/19 11:35:00 EST, Height, 83.4, kg, 11/02/18 13:42:00 EST, Dry Weight Start Date: 12/17/19 Status: Ordered tamsulosin 0.4 mg oral capsule 0.4 mg, By Mouth, Daily at bedtime, # 90 capsule, Refills 3, Tot. Refills 3, Maintenance, 12/17/19 11:48:00 EST, Route to Pharmacy Electronically, [facility]/pharmacy #[id number], 176.5, cm, 12/17/19 11:35:00 EST, Height, 83.4, kg, 11/02/18 13:42:00 EST, Dry Weight Start Date: 12/17/19 Status: Ordered thiamine 100 mg oral tablet 100 mg, 1, tablet, By Mouth, Daily, # 30 tablet, Refills 11, Tot. Refills 11, Maintenance, 09/08/2013:24:00 EST, Route to Pharmacy Electronically, [facility]/pharmacy #[id number], 175, cm, 09/08/20 12:47:00 EST,Height, [...] Active Anxiety(Confirmed) Active Aortic valve prosthesis pres [id number] TAVR 2017(Confirmed) 2, 3 Active Arteriosclerotic heart [...] 25 Active PAF (paroxysmal atrial fibri llation) [id number] 6(Confirmed) Active 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, 27, 28 Active Restless legs syndrome (RLS)(Confirmed) Active Thrombocytopenia(Confirmed) 29, 30 06/22/09 Active Tricuspid insufficiency(Confirmed) Active Trochanteric bursitis of rig ht hip(Confirmed) Active Type 2 diabetes with nephropathy(Confirmed) Active Type 2 diabetes mellitus wit h peripheral angiopathy(Confirmed) Active 1educated about use epi pen /when call 2[employer] VALVE [facility] 11034 41 graft 5CABG 2002 6Dr nini addressing 7nephrolithiasis 8to workup 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 12giardiam,o/p ,culture neg 13normal IGA/TTG 14workup 15urology addressing [id number] 17ortho 18chronic 19RFA 20djd xray 2-015 21xray 2004 LS arthritis etc 22BCG 23carcinoma in situ 24saw ortho 25s aw ortho;injected SEVERE pain 26endocrinology addressing 27MRI pti ;refer endo 28mri c spine 2014 29per hematology ? 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;to follow 30workup in progress Diagnosis Diagnosis Type Effective Dates Health Status Clinical Service Informant Medicare annual wellness visit, subsequent Discharge Diagnosis 09/08/20 Memory loss Discharge Diagnosis 09/08/20 Impaired mobility and ADLs Discharge Diagnosis 09/08/20 Chronic gout Discharge Diagnosis 09/08/20 Procedures Procedure Date Related Diagnosis Body Site Status CT of brain age realted volume loss 1 08/04/20 Completed Chest X-ray nad 07/15/20 Completed 1IMPRESSION: No acute intracranial hemorrhage or mass effect. Age-related parenchymal volume loss and chronic microvascular ischemia. 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 WSN: [id number] Vital Signs Most recent to oldest [Reference Range]: 1 Height 175 cm (09/08/20 12:47 PM) Weight 81.0 kg (09/08/20 12:47 PM) Oxygen Saturation [94-100 %] 98 % (09/08/20 12:47 PM) Pulse Rate [55-90 bpm] 48 bpm *L* (09/08/20 12:47 PM) Body Mass Index [18.5-24.99] 26.45 *H* (09/08/20 12:47 PM) Blood Pressure [90-138/55-84 mm Hg] 128/ 64mm Hg (09/08/20 12:47 PM) Respiratory Rate [16-30 br/min] 16 br/mi n (09/08/20 12:47 PM) Temperature [96.8-100.4 DegF] 97.6 DegF (09/08/20 12:47 PM) Blood pressure sites Arm, left (09/08/20 12:47 PM) Temperature Route Oral (09/08/20 12:47 PM) Social History Social History Type Response Smoking Status Former smoker, quit more than 30 days ago entered on: 03/01/19 Sex
--- OUTSIDE RECORDS SUMMARY | 2023-10-05 09:51 | XMS_ITS | Continuity of Care Document ---
Author Name Unknown Organization [facility] Tom lt Address [address] [place] [address]- Care Team Providers Care Buggy Ladle Tender Name Role Phone Michael Zafar MD Primary Care Physician [place] [facility] [place] 07[place]21/20 - 07/28/20 [facility] [address] [place] [address]- [facility] Encounter Diagnosis Chronic diarrhea episodic normal IGA TTG 2014(Discharge Diagnosis) - 07/21/20 Attending Physician: Michael Zafar MD Allergies, Adverse [...] 3Rrenée Comment: [06/30/2017] HIGH DOSE RECIEVED AT [facility] 4Rrenée Comment: [08/12/2015] Received at [facility] [place] 5Admin Note: given in clinic 6Admin Note: [...] 2 times a day, # 6 LOT [id number] EXP 2-21, # 180 tablet, 0 Refills, Maintenance, 06/13/20 11:45:00 EDT, Dry Weight Start Date: 06/13/20 Status: Ordered apixaban 2.5 mg oral tablet 1 tablet = 2.5 mg, By Mouth, 2 times a day, # 180 tablet, 3 Refills, Maintenance, 03/05/20 13:50:00EDT, [facility]/pharmacy #[id number], 176.5, cm, 12/25/19 15:48:00 [...] Gm, 0 Refills, Maintenance, 10/10/19 11:35:05 EST, [place], 1 sprays Nares, Both 2 times a [...] 3 Refills, Maintenance, 12/17/19 11:48:00 EST, Tablet, [facility]/pharmacy #[id number], Rx resent from 11/03/16., 176.5, cm, 12/17/19 11:35:00 EST, Height, 83.4, kg, 11/02/18 13:42:00 EST, Dry Weight Start Date: 12/17/19 Status: Ordered LORazepam 2 mg oral tablet 1 tablet = 2 mg, By Mouth, 2 times a day, # 60 tablet, 0 Refills, Maintenance, 06/16/20 13:49:00 EDT, [facility]/pharmacy #[id number], 176.5, cm, 06/13/20 12:04:00 EDT, Height, 83.4, kg, 11/02/18 13:42:00 EST, Dry Weight Start Date: 06/16/20 Status: Ordered magnesium oxide 400 mg oral tablet 1 tablet = 400 mg, By Mouth, 2 times a day, # 60 tablet, 3 Refills, Maintenance, 06/16/20 11:54:00 EDT, [facility]/pharmacy #[id number], 176.5, cm, 06/13/20 12:04:00 EDT, Height, 83.4, kg, 11/02/18 13:42:00 EST, Dry Weight Start Date: 06/16/20 Status: Ordered metoprolol 25 mg oral tablet, extended release 25 mg, 1, tablet, By Mouth, Daily, # 90 tablet, Refills 3, Tot. Refills 3, Maintenance, 06/16/20 9:41:00 EDT, Route to Pharmacy Electronically, [facility]/pharmacy #[id number], succinate, 176.5, cm, 06/13/20 12:04:00 EDT, Height, 83.4, kg, 11/02/18 13:42:00 EST, D... Start Date: 06/16/20 Stop Date: 06/11/21 Status: Ordered omeprazole 20 mg oral delayed release tablet 1 tablet = 20 mg, By Mouth, Daily, # 90 tablet, 3 Refills, Maintenance, 12/17/19 11:48:00 EST, EC Tablet, [facility]/pharmacy #[id number], 176.5, cm, 12/17/19 11:35:00 EST, Height, 83.4, kg, 11/02/18 13:42:00 EST, Dry Weight Start Date: 12/17/19 Status: Ordered tamsulosin 0.4 mg oral capsule 0.4 mg, By Mouth, Daily at bedtime, # 90 capsule, Refills 3, Tot. Refills 3, Maintenance, 12/17/19 11:48:00 EST, Route to Pharmacy Electronically, [facility]/pharmacy #[id number], 176.5, cm, 12/17/19 11:35:00 [...] Active Anxiety(Confirmed) Active Aortic valve prosthesis pres [id number] TAVR 2017(Confirmed) 2, 3 Active Arteriosclerotic heart [...] 26 Active PAF (paroxysmal atrial fibri llation) [id number] 6(Confirmed) Active Pituitary microadenoma(Confi rmed) 27, 28, 29 Active Restless legs syndrome (RLS)(Confirmed) Active Thrombocytopenia(Confirmed) 30, 31 06/22/09 Active Tricuspid insufficiency(Confirmed) Active Trochanteric bursitis of rig ht hip(Confirmed) Active Type 2 diabetes with nephropathy(Confirmed) Active Type 2 diabetes mellitus wit h peripheral angiopathy(Confirmed) Active 1educated about use epi pen /when call 2[employer]ARD[employer] VALVE [facility] [address] 41 graft 5CABG 2002 6Dr nini addressing 7nephrolithiasis 8to workup 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 12giardiam,o/p ,culture neg 13normal IGA/TTG 14workup 15urology addressing [id number] 17ortho 18chronic 19RFA 20djd xray 2-015 21xray [...] episodic normal IGA TTG 2014 Discharge Diagnosis 07/21/20 Vital Signs Most recent to oldest [Reference Range]: 1 Height 176.5 cm (07/21/20 1:34 PM) Social History Social History Type Response Smoking Status Former smoker, quit more than 30 days ago entered on: 03/01/19 Sex
--- OUTSIDE RECORDS SUMMARY | 2023-10-05 09:51 | XMS_ITS | Continuity of Care Document ---
Author Name Unknown Organization [facility] Kirk Tom lt Address [address] [place] [address]- Care Team Providers Care Metal Trades Instructor Name Role Phone Ju CARTON CATCHER, Giovana Chiu Primary Care Physician [facility]23 - 05/08/23 [facility] Adult [address] [place] [address]- Allergies, Adverse Reactions, Alerts Substance Reaction Severity [...] vaccine, inactivated 11/27/10 Give n SARS-CoV-2 mRNA ([id number]) vax 6 04/29/22 Given SARS-CoV-2 (COVID-19) mRNA [...] Pneumococcal Vaccine (oldterm) 11/07/98 Given 1Result Comment: [id number] 2Result Comment: [facility]# [address] [phone] 3Location History: [place] 4Result Comment: [06/30/2017] HIGH DOSE RECIEVED AT [facility] 5Result Comment: [08/12/2015] [place] [facility] [place]Result Comment: [facility]-[id number] 7Result Comment: Pfizer right deltoid lot [id number] exp 06-06-2021 [facility] 8Admin Note: GIVEN IN CLINIC [...] 04/07/23 14:29:00 EDT, Route to Pharmacy Electronically, [facility], 175, cm, 03/16/23 12:17:00 EDT, Height, 84.1, kg, 06/07/21 4:26:00 EDT, Dry Weight Start Date: 04/07/23 Status: Ordered amLODIPine 5 mg oral tablet 1 tablet, By Mouth, Daily, # 90 tablet, 1 Refills, Maintenance, 08/07/22 10:52:00 EDT, [facility], 175, cm, 07/22/22 14:43:00 [...] 90 tablet, 1 Refills, 11/24/22 14:41:00 EST, [facility], 175, cm, 09/29/22 12:43:00 EST, Height, 84.1, kg, 06/07/21 4:26:00 EDT, Dry Weight Start Date: 11/24/22 Status: Ordered Eliquis 2.5 mg oral tablet 1 tablet, By Mouth, 2 times a day, # 180 tablet, 9 Refills, 02/18/23 17:26:00 EDT, [facility], 175, cm, 01/24/23 11:05:00 EDT, Height, 84.1, kg, 06/07/21 4:26:00 EDT, Dry Weight Start Date: 02/18/23 Status: Ordered furosemide 20 mg oral tablet 20 mg, 1, tablet, By Mouth, Daily, for 30 days, # 30 tablet, Refills 0, Tot. Refills 0, Acute 05/15/23 12:48:00 EDT, 04/15/23 12:48:00 EDT, Route to Pharmacy Electronically, [facility], please dispense early, 175, cm, 03/16/23 [...] tablet, 11 Refills, Maintenance, 08/09/22 9:27:00 EDT, [facility], 175, cm, 07/22/22 14:43:00 EDT, Height, 84.1, kg, 06/07/21 4:26:00 EDT, Dry Weight Start Date: 08/09/22 Status: Ordered Melatonin Daily at bedtime, 0 Refills, Maintenance, 01/24/23 11:27:00 EDT Start Date: 01/24/23 Status: Ordered nystatin topical 382848 u/gm powder 1 application, Topically, 2 times a day, # 60 Gm, 1 Refills, Maintenance, 04/08/23 10:05:00 EDT, Powder, [facility], 1 application Topically 2 times a day, 175, cm, 03/16/23 12:17:00 EDT, Height, 84.1, kg, 06/07/21 4:26:00 EDT, . Start Date: 04/08/23 Status: Ordered omeprazole 20 mg oral enteric coated capsule 1 capsule, By Mouth, Daily, # 90 capsule, 0 Refills, Maintenance, 03/08/23 9:16:00 EDT, [facility], 175, cm, 01/24/23 11:05:00 EDT, Height, 84.1, kg, 06/07/21 4:26:00 EDT, Dry Weight Start Date: 03/08/23 Status: Ordered tamsulosin 0.4 mg oral capsule 1, capsule, By Mouth, Daily at bedtime, # 90 capsule, Refills 1, Tot. 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 11giardiam,o/p ,culture neg 12normal IGA/TTG 13workup [id number] 15chronic 16RFA 17djd xray 2-015 18xray 2004 [...] Team Personnel Name: Giovana Dodd NP Position: [facility] PCO Associate Professional Member Role: PCP Address: Address: [address] [place] [id number]- Name: Adam Dennis MD Position: [facility] Cardiology MD Member Role: Lifetime Consulting Physician Address: Address: [address] [place] [address] [address] [place] [address]- [place] Name: Julia Yu RN Position: [facility] RN Member Role: Primary Care Nurse Name: Jo Dillon RN Position: S RN Member Role: Primary Care Nurse Name: Anh Pires RN Position: S RN Member Role: Primary Care Nurse Name: Lonnie Puente Position: S RN Member Role: Primary Care Nurse Name: Jaqueline Johnson RN Position: S RN Member Role: Primary Care Nurse Name: Viki Collazo RN Position: [facility] RN Member Role: Primary Care Nurse Care Team Related Persons Name: SARWAT HENRIQUEZ Address: home [address] [place] [address] Name: JOSEFINA CONTRERAS Address: home [address] [place] [address]
--- OUTSIDE RECORDS SUMMARY | 2023-10-05 09:51 | XMS_ITS | Continuity of Care Document ---
Author Name Unknown Organization [facility] Anders Bradley Tom lt Address [address] [place] [address]- Care Team Providers Care Functional Skills Tutor Name Role Phone Leo Breen DO Primary Care Physician [phone] [facility]s): 08[facility]09[facility]23 - 09/08/23 [facility] Adult [address] [place] [address]- Allergies, Adverse Reactions, Alerts Substance Reaction Severity [...] vaccine, inactivated 11/27/10 Give n SARS-CoV-2 mRNA ([id number]) vax 6 04/29/22 Given SARS-CoV-2 (COVID-19) mRNA [...] Pneumococcal Vaccine (oldterm) 11/07/98 Given 1Result Comment: [id number] 2Result Comment: [facility]# ON [address] [phone] 3Location History: [place] 4Result Comment: [06/30/2017] HIGH DOSE RECIEVED AT [facility] 5Result Comment: [08/12/2015] Received at [facility] 6Result Comment: [facility]-[id number] 7Result Comment: Pfizer right deltoid lot [id number] exp 06-06-2021 [facility] 8Admin Note: GIVEN IN CLINIC SHAM 9Admin [...] 04/07/23 14:29:00 EDT, Route to Pharmacy Electronically, [facility], 175, cm, 03/16/23 12:17:00 EDT, Height, 84.1, kg, 06/07/21 4:26:00 EDT, Dry Weight Start Date: 04/07/23 Status: Ordered amLODIPine 5 mg oral tablet 1 tablet, By Mouth, Daily, # 90 tablet, 1 Refills, Maintenance, 07/05/23 13:28:00 EDT, [facility], 175, cm, 06/13/23 13:20:00 [...] tablet, 1 Refills, Maintenance, 05/13/23 10:04:00 EDT, [facility], 175, cm, 04/12/23 11:54:00 EDT, Height, 84.1, kg, 06/07/21 4:26:00 EDT, Dry Weight Start Date: 05/13/23 Status: Ordered Eliquis 2.5 mg oral tablet 1 tablet, By Mouth, 2 times a day, # 180 tablet, 9 Refills, 02/18/23 17:26:00 EDT, [facility], 175, cm, 01/24/23 11:05:00 [...] Replace Required Details, Route to Pharmacy Electronically, [facility], 175, cm, 06/13/23... Start Date: 06/17/23 Status: Ordered LORazepam 0.5 mg oral tablet See Instructions, take as directed altrating with 1mg dose, # 12 each, 1 Refills, Maintenance, 07/27/23 10:26:00 EDT, Tablet, [facility], starting to wean down Partial fill upon patient request if the prescription is for a schedul... Start Date: 07/27/23 Status: Ordered LORazepam 1 mg oral tablet 1 tablet = 1 mg, By Mouth, Daily at bedtime, PRN as needed for anxiety, taper as directed, # 30 tablet, 1 Refills, Maintenance, 06/16/23 8:19:00 EDT, [facility], 175, cm, 06/13/2313:20:00 EDT, Height Start Date: 06/16/23 Status: Ordered magnesium oxide 400 mg oral tablet 1 tablet, By Mouth, Daily, # 90 tablet, 11 Refills, Maintenance, 08/13/23 17:38:00 EDT, [facility], 175, cm, 08/12/23 11:45:00 EDT, Height Start Date: 08/13/23 Status: Ordered nystatin topical 523735 u/gm powder 1 application, Topically, 2 times a day, # 60 Gm, 1 Refills, Maintenance, 07/17/23 18:25:00 EDT, Powder, [facility], 1 application Topically 2 times a day, 175, cm, 06/13/23 13:20:00 EDT, Height Start Date: 07/17/23 Status: Ordered omeprazole 20 mg oral enteric coated capsule 1 capsule, By Mouth, Daily, # 90 capsule, 1 Refills, Maintenance, 06/13/23 13:22:00 EDT, [facility], 175, cm, 06/13/23 13:20:00 EDT, Height Start Date: 06/13/23 Status: Ordered tamsulosin 0.4 mg oral capsule 1, capsule, By Mouth, Daily at bedtime, # 90 capsule, Refills 1, Maintenance, 05/13/23 10:04:00 EDT, Route to Pharmacy Electronically, [facility], 175, cm, 04/12/23 11:54:00 EDT,Height, 84.1, kg, 06/07/21 4:26:00 EDT, Dry Weight Start Date: 05/13/23 Status: Ordered Vitamin B1 100 mg oral tablet 1, tablet, By Mouth, Daily, # 30 tablet, Refills 11, Maintenance, 08/13/23 17:38:00 EDT, Route to Pharmacy Electronically, [facility], 175, cm, 08/12/23 11:45:00 EDT, Height [...] Active Anxiety Confirmed Active Aortic valve prosthesis [id number] TAVR 2017 1, 2 Confirmed Active Arteriosclerotic [...] Confirmed 07/22/22 Active PAF (paroxysmal atrial fibrillation) [id number] 6 Confirmed Active 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 11giardiam,o/p ,culture neg 12normal IGA/TTG 13workup [id number] 15chronic 16RFA 17djd xray 2-015 18xray 2004 [...] Care team information Care Team Personnel Name: Dang Moser RN Position: S RN Member Role: Primary Care Nurse Name: Giovana Dodd NP Position: [facility] PCO Associate Professional Member Role: Lifetime Consulting Provider Address: Address: [address] [place] [phone]- [place] Name: Adam Dennis MD Position: [facility] Cardiology MD Member Role: Lifetime Consulting Physician Address: Address: [address] [place] [address] [address] [place] [address]- [place] Name: Julia Yu RN Position: S [...] Primary Care Nurse Name: Deb Brito Position: [facility] Corporate Travel Manager Member Role: Melter Supervisor [employer] Hearth Furnace Name: eLo Breen DO Position: [facility] Physician - Primary Care Member Role: PCP Address: Address: [address] [place] [address]- Name: Vale CHUN, Viki Eduardo Position: [facility] RN Member Role: Primary Care Nurse Care Team Related Persons Name: SARWAT HENRIQUEZ Address: [address] [place] [address] Name: JOSEFINA CONTRERAS Address: [address] [place] [address]
--- OUTSIDE RECORDS SUMMARY | 2023-10-05 09:51 | XMS_ITS | Continuity of Care Document ---
Author Name Unknown Organization [facility] Anders Bradley Tom lt Address [address] [place] [address]- Care Team Providers Care Manager Zone Name Role Phone Leo Breen DO Primary Care Physician [phone] [facility] Date[facility]s): 07/28/23 - 08/27/23 [facility] Adult [address] [place] [address]- Allergies, Adverse Reactions, Alerts Substance Reaction Severity [...] vaccine, inactivated 11/27/10 Give n SARS-CoV-2 mRNA (oqwsodq-rgvz-vksno) vax 6 04/29/22 Given SARS-CoV-2 (COVID-19) mRNA [...] Pneumococcal Vaccine (oldterm) 11/07/98 Given 1Result Comment: [id number] 2Result Comment: [facility]# [address] [phone] [facility] 4Result Comment: [06/30/2017] HIGH DOSE RECIEVED AT [facility] 5Resconstance Comment: [08/12/2015] [place] [facility] 6Result Comment: [facility]-[id number] 7Result Comment: Pfizer right deltoid lot [id number] exp 06-06-2021 [facility] 8Admin Note: GIVEN IN CLINIC SHAM [...] 04/07/23 14:29:00 EDT, Route to Pharmacy Electronically, [facility], 175, cm, 03/16/23 12:17:00 EDT, Height, 84.1, kg, 06/07/21 4:26:00 EDT, Dry Weight Start Date: 04/07/23 Status: Ordered amLODIPine 5 mg oral tablet 1 tablet, By Mouth, Daily, # 90 tablet, 1 Refills, Maintenance, 07/05/23 13:28:00 EDT, [facility], 175, cm, 06/13/23 [...] tablet, 1 Refills, Maintenance, 05/13/23 10:04:00 EDT, [facility], 175, cm, 04/12/23 11:54:00 EDT, Height, 84.1, kg, 06/07/21 4:26:00 EDT, Dry Weight Start Date: 05/13/23 Status: Ordered Eliquis 2.5 mg oral tablet 1 tablet, By Mouth, 2 times a day, # 180 tablet, 9 Refills, 02/18/23 17:26:00 EDT, [facility], 175, cm, 01/24/23 [...] Replace Required Details, Route to Pharmacy Electronically, [facility], 175, cm, 06/13/23... Start Date: 06/17/23 Status: Ordered LORazepam 0.5 mg oral tablet See Instructions, take as directed altrating with 1mg dose, # 12 each, 1 Refills, Maintenance, 07/27/23 10:26:00 EDT, Tablet, [facility], starting to wean down Partial fill upon patient request if the prescription is for a schedul... Start Date: 07/27/23 Status: Ordered LORazepam 1 mg oral tablet 1 tablet = 1 mg, By Mouth, Daily at bedtime, PRN as needed for anxiety, taper as directed, # 30 tablet, 1 Refills, Maintenance, 06/16/23 8:19:00 EDT, [facility], 175, cm, 06/13/2313:20:00 EDT, Height Start Date: 06/16/23 Status: Ordered magnesium oxide 400 mg oral tablet 1 tablet, By Mouth, Daily, # 90 tablet, 11 Refills, Maintenance, 08/13/23 17:38:00 EDT, [facility], 175, cm, 08/12/23 11:45:00 EDT, Height Start Date: 08/13/23 Status: Ordered nystatin topical 425862 u/gm powder 1 application, Topically, 2 times a day, # 60 Gm, 1 Refills, Maintenance, 07/17/23 18:25:00 EDT, Powder, [facility], 1 application Topically 2 times a day, 175, cm, 06/13/23 13:20:00 EDT, Height Start Date: 07/17/23 Status: Ordered omeprazole 20 mg oral enteric coated capsule 1 capsule, By Mouth, Daily, # 90 capsule, 1 Refills, Maintenance, 06/13/23 13:22:00 EDT, [facility], 175, cm, 06/13/23 13:20:00 EDT, Height Start Date: 06/13/23 Status: Ordered tamsulosin 0.4 mg oral capsule 1, capsule, By Mouth, Daily at bedtime, # 90 capsule, Refills 1, Maintenance, 05/13/23 10:04:00 EDT, Route to Pharmacy Electronically, [facility], 175, cm, 04/12/23 11:54:00 EDT,Height, 84.1, kg, 06/07/21 4:26:00 EDT, Dry Weight Start Date: 05/13/23 Status: Ordered Vitamin B1 100 mg oral tablet 1, tablet, By Mouth, Daily, # 30 tablet, Refills 11, Maintenance, 08/13/23 17:38:00 EDT, Route to Pharmacy Electronically, [facility], 175, cm, 08/12/23 11:45:00 [...] Active Anxiety Confirmed Active Aortic valve prosthesis [id number] TAVR 2017 1, 2 Confirmed Active Arteriosclerotic [...] Confirmed 07/22/22 Active PAF (paroxysmal atrial fibrillation) [id number] 6 Confirmed Active 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 11giardiam,o/p ,culture neg 12normal IGA/TTG 13workup [id number] 15chronic 16RFA 17djd xray 2-015 18xray 2004 [...] Team Personnel Name: Giovana Dodd NP Position: [facility] PCO Associate Professional Member Role: Lifetime Consulting Provider Address: Address: [address] [place] [address]- Name: Adam Dennis MD Position: [facility] Cardiology MD Member Role: Lifetime Consulting Physician Address: Address: [address] [place] [address] [address] [place] [address]- [place] Name: Julia Yu RN Position: [facility] RN Member Role: Primary Care Nurse Name: Jo Dillon RN Position: [facility] RN Member Role: Primary Care Nurse Name: Anh Pires RN Position: [facility] RN Member Role: Primary Care Nurse Name: Lonnie Puente RN Position: [facility] RN Member Role: Primary Care Nurse Name: Jaqueline Johnson RN Position: [facility] RN Member Role: Primary Care Nurse Name: Deb Brito Position: [facility] [place] Sustainable Products Marketing Manager Member Role: Glass Science Engineer Name: Leo Breen DO Position: [facility] Physician - Primary Care Member Role: PCP Address: Address: [address] [place] [address]- Name: Vale CHUN, Viki Eduardo Position: [facility] RN Member Role: Primary Care Nurse Care Team Related Persons Name: SARWAT HENRIQUEZ Address: [address] [place] [address] Name: JOSEFINA CONTRERAS Address: [address] [place] [address]
--- OUTSIDE RECORDS SUMMARY | 2023-10-05 09:51 | XMS_ITS | Continuity of Care Document ---
Author Name Unknown Organization [facility] Anders Bradley Tom lt Address [address] [place] [address]- Care Team Providers Care Home Health Attendant Name Role Phone Michael Zafar MD Primary Care Physician [phone] Encounter [facility] Date(s): 02/02/21 - 02/09/21 [facility] Adult [address] [place] [address]- Encounter Diagnosis Chronic gout(Discharge Diagnosis) - 02/02/21 Attending Physician: Michael Zafar MD Allergies, Adverse [...] (oldterm) 4 08/31/06 Given pneumococcal 13-valent vaccine 1/26/15 Given Fluarix (oldterm) 08/23/12 Given Fluarix (oldterm) [...] Bradford Comment: [06/30/2017] HIGH DOSE RECIEVED AT [facility] [place] Comment: [08/12/2015] Received at [facility] 4Admin Note: GIVEN IN CLINIC SHAM 5Admin Note: given in clinic 6Admin Note: historical data Medications acetaminophen 325 mg oral tablet 650 mg, By Mouth, Every 4 hours, PRN, Refills 0, Maintenance, Pain , Mild, 11/10/18 15:51:53 EST Start Date: 11/10/18 Status: Ordered allopurinol 100 mg oral tablet See Instructions, alternate y, # 90 each, Refills 5, Tot. Refills 5, Maintenance, 10/20/20 11:45:00 EST, Instructions Replace Required Details, [id number] 175, cm, 10/20/20 11:12:00 EST, Height, 80.6,... Start Date: 10/20/20 Status: Ordered amLODIPine 5 mg oral tablet 5 mg, 1, tablet, By Mouth, Daily, # 30 tablet, Refills 3, Tot. Refills 3, Maintenance, 12/05/20 9:44:00 EST, [id number] 175, cm, 12/05/20 8:32:00 EST, Height, 79, kg, 11/26/20 11:00:00 EST, Dry Weight Start Date: 12/05/20 Status: Ordered apixaban 2.5 mg oral tablet 1 tablet = 2.5 mg, By Mouth, 2 times a day, # 180 tablet, 3 Refills, Maintenance, 03/05/20 13:50:00EDT, [id number], 176.5, cm, 12/25/19 15:48:00 EST, Height, [...] 30 tablet, 0 Refills, Maintenance, 02/09/21 11:46:00EDT, [id number], 175, cm, 02/06/21 10:40:00 EDT, Height, [...] Refills, Maintenance, 02/07/21 22:44:00 EDT, EC Tablet, [id number], 175, cm, 02/06/21 10:40:00 EDT, Height, 79, kg, 11/26/20 11:00:00 EST, Dry Weight Start Date: 02/07/21 Status: Ordered predniSONE 20 mg oral tablet 1 tablet = 20 mg, By Mouth, 2 times a day, with food or milk, # 6 tablet, 0 Refills, Maintenance, 02/06/21 10:49:00 EDT, Tablet, [id number], Partial fill upon patient request if the prescription is for a schedule II opioid drug., 175, cm, 0... Start Date: 02/06/21 Status: Ordered tamsulosin 0.4 mg oral capsule 0.4 mg, By Mouth, Daily at bedtime, # 90 capsule, Refills 1, Tot. Refills 1, Maintenance, 02/07/21 22:44:00 EDT, Route to Pharmacy Electronically, [id number], 175, cm, 02/06/21 10:40:00 EDT, Height, 79, kg, 11/26/20 11:00:00 EST, Dry Weight Start Date: 02/07/21 Status: Ordered thiamine 100 mg oral tablet 100 mg, 1, tablet, By Mouth, Daily, # 30 tablet, Refills 11, Tot. Refills 11, Maintenance, 09/08/2013:24:00 EST, Route to Pharmacy Electronically, [id number], 175, cm, 09/08/20 12:47:00 EST,Height, [...] Active Anxiety(Confirmed) Active Aortic valve prosthesis pres [id number] TAVR 2017(Confirmed) 2, 3 Active Arteriosclerotic heart [...] 25 Active PAF (paroxysmal atrial fibri llation) [id number] 6(Confirmed) Active 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, 27, 28 Active Restless legs syndrome (RLS)(Confirmed) Active Thrombocytopenia(Confirmed) 29, 30 06/22/09 Active Tricuspid insufficiency(Confirmed) Active Trochanteric bursitis of rig ht hip(Confirmed) Active Type 2 diabetes with nephropathy(Confirmed) Active Type 2 diabetes mellitus wit h peripheral angiopathy(Confirmed) Active 1educated about use epi pen /when call 2CARPENTIER PERICARDIAL VALVE [facility] [address] 41 graft 5CABG 2002 6Dr nini addressing 7nephrolithiasis 8to workup 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 12giardiam,o/p ,culture neg 13normal IGA/TTG 14workup 15urology addressing [id number] 17ortho 18chronic 19RFA 20djd xray 2-015 21xray 2004 LS arthritis etc 22BCG 23carcinoma in situ 24saw ortho 25s aw ortho;injected SEVERE pain 26endocrinology addressing 27MRI pti ;refer endo 28mri c spine 2014 29per hematology ? 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
--- OUTSIDE RECORDS SUMMARY | 2023-10-05 09:52 | XMS_ITS | Continuity of Care Document ---
Author Name Unknown Organization [facility] Tom lt Address [address] [place] [address]- Care Team Providers Care Desolderer Name Role Phone Charisma LENZ, Michael Boston Primary Care Physician Encounter [facility] [place] Date(s): 03/24/22 - 04/23/22 [facility] Adult [address] [place] [address]- Allergies, Adverse Reactions, Alerts Substance Reaction Severity [...] Pneumococcal Vaccine (oldterm) 11/07/98 Given 1Result Comment: [facility]# ON [address] [id number] 2Location History: [place] 3Resconstance Comment: [06/30/2017] HIGH DOSE RECIEVED AT [facility] 4Rrenée Comment: [08/12/2015] Received at [facility] [place] 5Result Comment: Pfizer right deltoid lot [id number] exp 06-06-2021 [facility] 6Admin Note: GIVEN IN CLINIC SHAM [...] 03/24/22 10:26:00 EDT, Route to Pharmacy Electronically, [facility], 175, cm, 03/05/22 11:48:00 EDT, Height, 84.1, kg, 06/07/21 4:26:00 EDT,... Start Date: 03/24/22 Status: Ordered amLODIPine 5 mg oral tablet 1 tablet, By Mouth, Daily, # 90 tablet, 1 Refills, [facility], 175, cm, 02/09/22 10:10:00 EDT, Height, [...] 90 tablet, 1 Refills, 09/01/21 11:50:00 EDT, [facility], 175, cm, 08/12/21 15:35:00 EDT, Height, 84.1, kg, 06/07/21 4:26:00 EDT, Dry Weight Start Date: 09/01/21 Status: Ordered Eliquis 2.5 mg oral tablet 1 tablet, By Mouth, 2 times a day, # 180 tablet, 9 Refills, [facility], 175, cm, 02/09/22 10:10:00 EDT, Height, 84.1, kg, 06/07/21 4:26:00 EDT, Dry Weight Start Date: 02/10/22 Status: Ordered LORazepam 1 mg oral tablet 1 tablet = 1 mg, By Mouth, Daily at bedtime, to fill on Monday 03/26 before weekend, # 30 tablet, 0 Refills, Maintenance, 04/22/22 13:24:00 EDT, [facility], 175, cm, 04/14/22 12:46:00 EDT, Height, 84.1, kg, 06/07/21 4:26:00 EDT, Start Date: 04/22/22 Status: Ordered magnesium oxide 400 mg oral tablet 1 tablet, By Mouth, Daily, # 90 tablet, 1 Refills, [facility], 175, cm, 02/09/22 10:10:00 EDT, Height, 84.1, kg, 06/07/21 4:26:00 EDT, Dry Weight Start Date: 02/10/22 Status: Ordered melatonin 5 mg oral tablet By Mouth, Daily at bedtime, 0 Refills, Maintenance, 08/08/20 9:44:00 EDT, Tablet Start Date: 08/08/20 Status: Ordered nystatin topical 508102 u/gm powder 1 application, Topically, 2 times a day, # 60 Gm, 5 Refills, Maintenance, 01/14/22 10:20:00 EST, Powder, [facility], Partial fill upon patient request if the prescription is for a schedule II opioid drug., 1 application Topically... Start Date: 01/14/22 Status: Ordered omeprazole 20 mg oral enteric coated capsule 1 capsule, By Mouth, Daily, # 90 capsule, 0 Refills, [facility], 175, cm, 02/09/22 10:10:00 EDT, Height, 84.1, kg, 06/07/21 4:26:00 EDT, Dry Weight Start Date: 02/10/22 Status: Ordered tamsulosin 0.4 mg oral capsule 1, capsule, By Mouth, Daily at bedtime, # 90 capsule, Refills 0, Route to Pharmacy Electronically, [facility], 175, cm, 02/09/22 10:10:00 EDT, Height, 84.1, kg, 06/07/21 4:26:00 EDT, Dry Weight Start Date: 02/12/22 Status: Ordered thiamine 100 mg oral tablet 100 mg, 1, tablet, By Mouth, Daily, # 30 tablet, Refills 11, Tot. 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 12giardiam,o/p ,culture neg 13normal IGA/TTG 14workup 15urology addressing [id number] 17ortho 18chronic 19RFA 20djd xray 2-015 21xray [...]
--- OUTSIDE RECORDS SUMMARY | 2023-10-05 09:52 | XMS_ITS | Continuity of Care Document ---
Author Name Unknown Organization [facility] Address [address] [place] [place] [address]- Care Team Providers Care Home Therapy Clinician Name Role Phone Michael Zafar MD Primary Care Physician [phone] Encounter [facility] [place] ACCT R [id number] Date(s): 08/10/22 - 09/16/22 [facility] [address] [place] [address]- Attending Physician: Trinity Uriarte MD Admitting Physician: Trinity Uriarte MD Referring Physician: Michael Zafar MD Allergies, [...] Vaccine Date Status Refusal Reason SARS-CoV-2 mRNA (egppuom-nitx-fiqwm) vax 1 04/29/22 Given influenza virus vaccine, [...] Pneumococcal Vaccine (oldterm) 11/07/98 Given 1Result Comment: [facility] [place][[facility] 3]-[id number] 2Result Comment: [facility][NOTE 3]# ON [address] [phone] 3Location History: [place] 4Result Comment: [06/30/2017] HIGH DOSE RECIEVED AT [facility] 5Resconstance Comment: [08/12/2015] Received at [facility] [place] 6Result Comment: Pfizer right deltoid lot [id number] exp 06-06-2021 [facility] 7Admin [...] 09/05/22 12:57:00 EDT, Route to Pharmacy Electronically, [facility], 175, cm, 07/22/22 14:43:00 EDT, Height, 84.1, kg, 06/07/21 4:26:00 EDT, Dry Weight Start Date: 09/05/22 Status: Ordered amLODIPine 5 mg oral tablet 1 tablet, By Mouth, Daily, # 90 tablet, 1 Refills, Maintenance, 08/07/22 10:52:00 EDT, [facility], 175, cm, 07/22/22 14:43:00 EDT, [...] 90 tablet, 1 Refills, 05/09/22 6:15:00 EDT, [facility], 175, cm, 04/29/22 10:58:00 EDT, Height, 84.1, kg, 06/07/21 4:26:00 EDT, Dry Weight Start Date: 05/09/22 Status: Ordered Eliquis 2.5 mg oral tablet 1 tablet, By Mouth, 2 times a day, # 180 tablet, 9 Refills, [facility], 175, cm, 02/09/22 10:10:00 EDT, Height, 84.1, kg, 06/07/21 4:26:00 EDT, Dry Weight Start Date: 02/10/22 Status: Ordered LORazepam 1 mg oral tablet 1 tablet = 1 mg, By Mouth, Daily at bedtime, to refill on due date, 09/09/22 for refill., # 30 tablet, 0 Refills, Maintenance, 08/30/22 7:50:00 EDT, [facility], 175, cm, 07/22/22 14:43:00 EDT, Height, 84.1, kg, 06/07/21 4:26:00 EDT... Start Date: 08/30/22 Status: Ordered magnesium oxide 400 mg oral tablet 1 tablet, By Mouth, Daily, # 90 tablet, 1 Refills, Maintenance, 08/09/22 9:27:00 EDT, [facility], 175, cm, 07/22/22 14:43:00 EDT, Height, 84.1, kg, 06/07/21 4:26:00 EDT, Dry Weight Start Date: 08/09/22 Status: Ordered magnesium oxide 400 mg oral tablet 1 tablet, By Mouth, Daily, # 90 tablet, 11 Refills, Maintenance, 08/09/22 9:27:00 EDT, [facility], 175, cm, 07/22/22 14:43:00 EDT, [...] Start Date: 05/05/22 Status: Ordered nystatin topical 723992 u/gm powder 1 application, Topically, 2 times a day, # 60 Gm, 5 Refills, Maintenance, 01/14/22 10:20:00 EST, Powder, [facility], Partial fill upon patient request if the prescription is for a schedule II opioid drug., 1 application Topically... Start Date: 01/14/22 Status: Ordered omeprazole 20 mg oral enteric coated capsule 1 capsule, By Mouth, Daily, # 90 capsule, 0 Refills, Maintenance, 08/07/22 10:53:00 EDT, [facility], 175, cm, 07/22/22 14:43:00 EDT, Height, 84.1, kg, 06/07/21 4:26:00 EDT, Dry Weight Start Date: 08/07/22 Status: Ordered sertraline 50 mg oral tablet 1 tablet = 50 mg, By Mouth, Daily, # 90 tablet, 1 Refills, Maintenance, 06/10/22 17:09:00 EDT, Tablet, [facility], Partial fill upon patient request if the prescription is for a schedule II opioid drug., 175, cm, 06/04/22 11:38:00... Start Date: 06/10/22 Status: Ordered tamsulosin 0.4 mg oral capsule 1, capsule, By Mouth, Daily at bedtime, # 90 capsule, Refills 1, Tot. Refills 1, 05/13/22 12:10:00 EDT, Route to Pharmacy Electronically, [facility], 175, cm, 05/12/22 13:46:00 EDT, [...] 08/09/22 9:27:00 EDT, Route to Pharmacy Electronically, [facility], 175, cm, 07/22/22 14:43:00 EDT, Height, 84.1, kg, 06/07/21 4:26:00 EDT, Dry Weight Start Date: 08/09/22 Status: Ordered Vitamin B1 100 mg oral tablet 1, tablet, By Mouth, Daily, # 30 tablet, Refills 11, Maintenance, 08/09/22 9:27:00 EDT, Route to Pharmacy Electronically, [facility], 175, cm, 07/22/22 14:43:00 EDT, [...] Active Anxiety Confirmed Active Aortic valve prosthesis [id number] TAVR 2017 2, 3 Confirmed Active Arteriosclerotic [...] Confirmed 07/22/22 Active PAF (paroxysmal atrial fibrillation) [id number] 6 Confirmed Active Pituitary microadenoma 26, 27, [...] call 2[facility] [address] 41 graft 5CABG 2002 6Dr nini addressing 7nephrolithiasis 8to workup 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 12giardiam,o/p ,culture neg 13normal IGA/TTG 14workup 15urology addressing [id number] 17ortho 18chronic 19RFA 20djd xray 2-015 21xray [...] Team Personnel Name: Raina Westbrook RN Position: [facility] RN Member Role: Primary Care Nurse Name: Giovana Dodd NP Position: [facility] PCO Associate Professional Member Role: Lifetime Consulting Provider Address: Address: [address] [place] [address]- [place] Name: Adam Dennis MD Position: [facility] Cardiology MD Member Role: Lifetime Consulting Physician Address: Address: [address] [place] [address]- [place] Name: Jo Dillon RN Position: S RN Member Role: Primary Care Nurse Name: Anh Pires RN Position: S RN Member Role: Primary Care Nurse Name: Lonnie Puente Position: [facility] RN Member Role: Primary Care Nurse Name: Julia Khan RN Position: S RN Member Role: Primary Care Nurse Name: Jaqueline Johnson RN Position: S RN Member Role: Primary Care Nurse Name: Michael Zafar MD Position: [facility] Primary Care Physician Member Role: PCP Address: Address: [address] [place] [address]- Name: Kathy Arellano RN Position: [facility] RN Member Role: Primary Care Nurse Name: Viki Collazo RN Position: [facility] RN Member Role: Primary Care Nurse Care Team Related Persons Name: SARWAT HENRIQUEZ Address: [address] [place] [address] Name: JOSEFINA CONTRERAS Address: [address] [place] [address]
--- OUTSIDE RECORDS SUMMARY | 2023-10-05 09:52 | XMS_ITS | Continuity of Care Document ---
Author Name Unknown Organization [facility] Address [address] [place] [address]- Care Team Providers Care Pasta Press Operator Name Role Phone Charisma LENZ, Michael Boston Primary Care Physician [phone] En[place] [facility] [place] Date(s): 04/06/22 - 05/22/22 [facility] [address] [place] [address]- Attending Physician: Dolores LENZ, Harleen Admitting Physician: Dolores LENZ, Harleen Allergies, Adverse Reactions, Alerts Substance Reaction Severity [...] Vaccine Date Status Refusal Reason SARS-CoV-2 mRNA (phshqim-esof-aivyb) vax 1 04/29/22 Given influenza virus vaccine, [...] Pneumococcal Vaccine (oldterm) 11/07/98 Given 1Result Comment: [facility]-[id number] 2Result Comment: [facility]# ON [address] [phone] 3Location History: [place] 4Resconstance Comment: [06/30/2017] HIGH DOSE RECIEVED AT [facility] 5Resconstance Comment: [08/12/2015] Received at [facility] [place] 6Result Comment: Pfizer right deltoid lot [id number] exp 06-06-2021 [facility] 7Admin Note: [...] 03/24/22 10:26:00 EDT, Route to Pharmacy Electronically, [facility], 175, cm, 03/05/22 11:48:00 [...] 90 tablet, 1 Refills, 05/09/22 6:15:00 EDT, [facility], 175, cm, 04/29/22 [...] weekend, # 30 tablet, 0 Refills, Maintenance, 05/18/22 14:34:00 EDT, [facility], 175, cm, 05/12/22 13:46:00 EDT, Height, 84.1, kg, 06/07/21 4:26:00 EDT, Start Date: 05/18/22 Status: Ordered magnesium oxide 400 mg oral [...] Start Date: 05/05/22 Status: Ordered nystatin topical 049480 u/gm powder 1 application, Topically, 2 times [...] 90 capsule, 0 Refills, 05/13/22 12:10:00 EDT, [facility], 175, cm, 05/12/22 13:46:00 EDT, Height, 84.1, kg, 06/07/21 4:26:00 EDT, Dry Weight Start Date: 05/13/22 Status: Ordered sertraline 25 mg oral tablet 1 tablet = 25 mg, By Mouth, Daily, # 30 tablet, 4 Refills, Maintenance, 04/29/22 11:16:00 EDT, Tablet, [facility], Partial fill upon patient request if the prescription is for a schedule II opioid drug., 175, cm, 04/29/22 10:58:00... Start Date: 04/29/22 Status: Ordered tamsulosin 0.4 mg oral capsule 1, capsule, By Mouth, Daily at bedtime, # 90 capsule, Refills 1, Tot. Refills 1, 05/13/22 12:10:00 EDT, Route to Pharmacy Electronically, 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 12giardiam,o/p ,culture neg 13normal IGA/TTG 14workup 15urology addressing [id number] 17ortho 18chronic 19RFA 20djd xray 2-015 21xray [...]
--- OUTSIDE RECORDS SUMMARY | 2023-10-05 09:52 | XMS_ITS | Continuity of Care Document ---
Author Name Unknown Organization [facility] Tom lt Address [address] [place] [address]- Care Team Providers Care Communications Marketing Intern Name Role Phone Michael Zafar MD Primary Care Physician Encounter [facility] [place] Date(s): 10/19/19 - 11/22/19 [facility] Adult [address] [place] [address]- [facility] Attending Physician: Michael Zafar MD Allergies, Adverse [...] 3Rrenée Comment: [06/30/2017] HIGH DOSE RECIEVED AT [facility] 4Rrenée Comment: [08/12/2015] [place] [facility] [place]Admin Note: given in clinic 6Admin Note: [...] Gm, 0 Refills, Maintenance, 10/10/19 11:35:05 EST, [place], 1 sprays Nares, Both 2 times a [...] [facility] Start Date: 11/05/19 Status: Ordered LIDODERM PATCH [...] 3 Refills, Maintenance, Tablet, Route toPharmacy Electronically, [id number], [id number], Rx resent from 11/03/16. [...] 11/05/19 12:58:00 EST, Route to Pharmacy Electronically, [facility]pharmacy #[id number], 176.5, cm, 10/23/19 15:57:00 EST, Height, [...] 12/28/18 10:45:55 EST, Route to Pharmacy Electronically, [id number] Start Date: 12/28/18 Status: Ordered Tums 500 [...] Active Anxiety(Confirmed) Active Aortic valve prosthesis pres [id number] TAVR 2017(Confirmed) 2, 3 Active Arteriosclerotic heart [...] 15 Active Hyperlipidemia NOS(Confirmed) Active Inguinal hernia;left(Confirmed) 2/10/09 Active Insomnia(Confirmed) Active Chronic knee pain(Confirmed) 16 [...] 25 Active PAF (paroxysmal atrial fibri llation) [id number] 6(Confirmed) Active 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, 27, 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 Restless legs syndrome (RLS)(Confirmed) Active Thrombocytopenia(Confirmed) 29, 30 06/22/09 Active Tricuspid insufficiency(Confirmed) Active Trochanteric bursitis of rig ht hip(Confirmed) Active Type 2 diabetes with nephropathy(Confirmed) Active Type 2 diabetes mellitus wit h peripheral angiopathy(Confirmed) Active 1educated about use epi pen /when call 2[facility] [address] 41 graft 5CABG 2002 6Dr nini addressing 7nephrolithiasis 8to workup 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 12Zung=mod depression 13has seen billing adjudicator,[place] [facility] DIABETIC;risk diabetes 14urology addressing [id number] 16ortho 17chronic 18RFA 19djd xray 2-015 20xray [...]
--- OUTSIDE RECORDS SUMMARY | 2023-10-05 09:52 | XMS_ITS | Continuity of Care Document ---
Author Name Unknown Organization [facility] Tom [facility] Address [address] [place] [address]- Care Team Providers Care Rip Machine Operator Name Role Phone Charisma LENZ, Michael Boston Primary Care Physician Encounter [facility] [place] ACCT R [id number] Date(s): 06/03/22 - 07/10/22 [facility] [address] [place] [address]- Attending Physician: Michael Zafar MD Allergies, Adverse [...] Vaccine Date Status Refusal Reason SARS-CoV-2 mRNA (tbozjao-kerg-wonzb) vax 1 04/29/22 Given influenza virus vaccine, [...] Pneumococcal Vaccine (oldterm) 11/07/98 Given 1Result Comment: [facility] [place]-[id number] 2Result Comment: [facility]# [place] [address] [phone] 3Location History: [place] 4Resconstance Comment: [06/30/2017] HIGH DOSE RECIEVED AT [facility] 5Resconstance Comment: [08/12/2015] Received at [facility] [place] 6Result Comment: Pfizer right deltoid lot [id number] exp 06-06-[address] [facility] 7Admin Note: GIVEN IN CLINIC [...] 06/03/22 11:47:00 EDT, Route to Pharmacy Electronically, [facility], 175, cm, 06/03/22 11:28:00 EDT, Height, 84.1, kg, 06/07/21 4:26:00 EDT,... Start Date: 06/03/22 Status: Ordered amLODIPine 5 mg oral tablet 1 tablet, By Mouth, Daily, # 90 tablet, 1 Refills, [facility], 175, cm, 02/09/22 10:10:00 [...] 90 tablet, 1 Refills, 05/09/22 6:15:00 EDT, [facility], 175, cm, 04/29/22 10:58:00 EDT, Height, 84.1, kg, 06/07/21 4:26:00 EDT, Dry Weight Start Date: 05/09/22 Status: Ordered Eliquis 2.5 mg oral tablet 1 tablet, By Mouth, 2 times a day, # 180 tablet, 9 Refills, [facility], 175, cm, 02/09/22 10:10:00 EDT, Height, 84.1, kg, 06/07/21 4:26:00 EDT, Dry Weight Start Date: 02/10/22 Status: Ordered LORazepam 1 mg oral tablet 1 tablet = 1 mg, By Mouth, Daily at bedtime, to fill on 07/15, 28 day script from here on out to keep patient on consistent weekday schedule, # 28 tablet, 0 Refills, Maintenance, 06/21/22 22:07:00 EDT, [facility], 175, cm,... Start Date: 06/21/22 Status: Ordered magnesium oxide 400 mg oral tablet 1 tablet, By Mouth, Daily, # 90 tablet, 1 Refills, [facility], 175, cm, 02/09/22 10:10:00 [...] Start Date: 05/05/22 Status: Ordered nystatin topical 227659 u/gm powder 1 application, Topically, 2 times a day, # 60 Gm, 5 Refills, Maintenance, 01/14/22 10:20:00 EST, Powder, [facility], Partial fill upon patient request if the prescription is for a schedule II opioid drug., 1 application Topically... Start Date: 01/14/22 Status: Ordered omeprazole 20 mg oral enteric coated capsule 1 capsule, By Mouth, Daily, # 90 capsule, 0 Refills, 05/13/22 12:10:00 EDT, [facility], 175, cm, 05/12/22 13:46:00 EDT, Height, 84.1, kg, 06/07/21 4:26:00 EDT, Dry Weight Start Date: 05/13/22 Status: Ordered sertraline 50 mg oral tablet 1 tablet = 50 mg, By Mouth, Daily, # 90 tablet, 1 Refills, Maintenance, 06/10/22 17:09:00 EDT, Tablet, [facility], Partial fill upon patient request if the prescription is for a schedule II opioid drug., 175, cm, 06/04/22 11:38:00... Start Date: 06/10/22 Status: Ordered tamsulosin 0.4 mg oral capsule 1, capsule, By Mouth, Daily at bedtime, # 90 capsule, Refills 1, Tot. 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 12giardiam,o/p ,culture neg 13normal IGA/TTG 14workup 15urology addressing [id number] 17ortho 18chronic 19RFA 20djd xray 2-015 21xray [...] Personnel Name: Charisma LENZ, Michael Boston Address: [address] [place] [address] [place] [address]
--- OUTSIDE RECORDS SUMMARY | 2023-10-05 09:52 | XMS_ITS | Continuity of Care Document ---
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 Role Phone Michael Zafar MD Primary Care Physician Encounter [facility] [place] Date(s): 02/06/21 - 02/13/21 [facility] Adult [address] [place] [address]- Encounter Diagnosis Type 2 diabetes mellitus with peripheral angiopathy(Discharge Diagnosis) - 02/06/21 Type 2 diabetes with nephropathy(Discharge Diagnosis) - 02/06/21 Benign Essential Hypertension(Discharge Diagnosis) - 02/06/21 Hyperlipidemia NOS(Discharge Diagnosis) - 02/06/21 Chronic gout(Discharge Diagnosis) - 02/06/21 Attending Physician: Michael Zafar MD Allergies, Adverse Reactions, Alerts Substance Reaction Severity Status lisinopril 1, 2 Active gabapentin unknown Active Percocet vomiting Active Effexor dizziness Active carvedilol 3 Active citalopram dizzy Active Remeron 4 dizziness Active Bee Stings [...] Given 1Result Comment: Pfizer right deltoid lot [id number] [facility] 2Location History: [place] 3Rrenée Comment: [06/30/2017] HIGH DOSE RECIEVED AT [facility] 4Rrenée Comment: [08/12/2015] Received at [facility] [place] 5Admin Note: GIVEN IN CLINIC SHAM 6Admin Note: given in clinic 7Admin Note: historical data Medications acetaminophen 325 mg oral tablet 650 mg, By Mouth, Every 4 hours, PRN, Refills 0, Maintenance, Pain , Mild, 11/10/18 15:51:53 EST Start Date: 11/10/18 Status: Ordered allopurinol 100 mg oral tablet See Instructions, alternate 12/08/12/08y, # 90 each, Refills 5, Tot. Refills 5, Maintenance, 10/20/20 11:45:00 EST, Instructions Replace Required Details, Route to Pharmacy Electronically, [facility]/pharmacy #[id number], 175, cm, 10/20/20 11:12:00 EST, Height, 80.6,... Start Date: 10/20/20 Status: Ordered amLODIPine 5 mg oral tablet 5 mg, 1, tablet, By Mouth, Daily, # 30 tablet, Refills 3, Tot. Refills 3, Maintenance, 12/05/20 9:44:00 EST, Route to Pharmacy Electronically, [facility]/pharmacy #[id number], 175, cm, 12/05/20 8:32:00 EST, Height, 79, kg, 11/26/20 11:00:00 EST, Dry Weight Start Date: 12/05/20 Status: Ordered apixaban 2.5 mg oral tablet 1 tablet = 2.5 mg, By Mouth, 2 times a day, # 180 tablet, 3 Refills, Maintenance, 03/05/20 13:50:00EDT, [facility]/pharmacy #[id number], 176.5, cm, 12/25/19 15:48:00 EST, [...] 1 Refills, Maintenance, 02/07/21 22:44:00 EDT, Tablet, [facility]/pharmacy #[id number], Rx resent from 11/03/16., 175, [...] 3 Refills, Maintenance, 02/12/21 17:31:00 EDT, Tablet, [facility] #[id number], Partial fill upon patient request if [...] Refills, Maintenance, 02/07/21 22:44:00 EDT, EC Tablet, [facility]/pharmacy #[id number], 175, cm, 02/06/21 10:40:00 EDT, Height, 79, kg, 11/26/20 11:00:00 EST, Dry Weight Start Date: 02/07/21 Status: Ordered predniSONE 20 mg oral tablet 1 tablet = 20 mg, By Mouth, 2 times a day, with food or milk, # 6 tablet, 0 Refills, Maintenance, 02/06/21 10:49:00 EDT, Tablet, [id number], Partial fill upon patient request if the prescription is for a schedule II opioid drug., 175, cm, 0... Start Date: 02/06/21 Status: Ordered tamsulosin 0.4 mg oral capsule 0.4 mg, By Mouth, Daily at bedtime, # 90 capsule, Refills 1, Tot. Refills 1, Maintenance, 02/07/21 22:44:00 EDT, Route to Pharmacy Electronically, [facility]/pharmacy #[id number], 175, cm, 02/06/21 10:40:00 EDT, Height, 79, kg, 11/26/20 11:00:00 EST, Dry Weight Start Date: 02/07/21 Status: Ordered thiamine 100 mg oral tablet 100 mg, 1, tablet, By Mouth, Daily, # 30 tablet, Refills 11, Tot. 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 Restless legs syndrome (RLS)(Confirmed) Active Thrombocytopenia(Confirmed) 29, 30 06/22/09 Active Tricuspid insufficiency(Confirmed) Active Trochanteric bursitis of rig ht hip(Confirmed) Active Type 2 diabetes with nephropathy(Confirmed) Active Type 2 diabetes mellitus wit h peripheral angiopathy(Confirmed) Active 1educated about use epi pen /when call 2[employer]ICARD[employer] VALVE [facility] [id number] 41 graft 5CABG 2002 6Dr nini addressing 7nephrolithiasis 8to workup 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 12giardiam,o/p ,culture neg 13normal IGA/TTG 14workup 15urology addressing [id number] 17ortho 18chronic 19RFA 20djd xray 2-015 21xray 2004 LS arthritis etc 22BCG 23carcinoma in situ 24saw ortho 25s aw ortho;injected SEVERE pain 26endocrinology addressing 27MRI pti ;refer endo 28mri c spine 2014 29per hematology ? 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;to follow 30workup in progress Diagnosis Diagnosis Type Effective Dates Health Status Clinical Service Informant Type 2 diabetes mellitus with peripheral angiopathy Discharge Diagnosis 02/06/21 Type 2 diabetes with nephropathy Discharge Diagnosis 02/06/21 Benign Essential Hypertension Discharge Diagnosis 02/06/21 Hyperlipidemia NOS Discharge Diagnosis 02/06/21 Chronic gout Discharge Diagnosis 02/06/21 Vital Signs Most recent to oldest [Reference Range]: 1 2 3 Height 175 cm (02/06/21 10:40 AM) 175 cm (02/06/21 10:29 AM) 175 cm (02/06/21 10:25 AM) Weight 83.9 kg (02/06/21 10:25 AM) Oxygen Saturation [94-100 %] 96 % (02/06/21 10:25 AM) Pulse Rate [55-90 bpm] 88 bpm (02/06/21 10:25 AM) Body Mass Index [18.5-24.99] 27.4 *H* (02/06/21 10:25 AM) Blood Pressure [90-138/55-84 mm Hg] 132/82mm Hg (02/06/21 10:40 AM) 144/84mm Hg *H* (02/06/21 10:29 AM) 158/86mm Hg *H* (02/06/21 10:25 AM) Respiratory Rate [16-30 br/min] 16 br/min (02/06/21 10:25 AM) Blood pressure sites Arm, left (02/06/21 10:40 AM) Arm, left (02/06/21 10:29 AM) Arm, left (02/06/21 10:25 AM) Social History Social History Type Response Smoking Status Former smoker, quit more than 30 days ago entered on: 03/01/19 Sex
--- OUTSIDE RECORDS SUMMARY | 2023-10-05 09:52 | XMS_ITS | Continuity of Care Document ---
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 Name Role Phone Charisma LENZ, Michael Boston Primary Care Physician [phone] [place] [facility] Date(s[place] 05/04/22 - 05/05/[address] [address]- Encounter Diagnosis Mild major depression(Discharge Diagnosis) - 05/05/22 Memory loss(Discharge Diagnosis) - 05/05/22 Chronic gout(Discharge Diagnosis) - 05/05/22 Discharge Disposition: A-D/C Home Attending Physician: Ruddy Estrada MD Admitting Physician: Fernanda Davis MD Referring Physician: Not on Staff, Referring MD Allergies, Adverse Reactions, Alerts Substance Reaction [...] Vaccine Date Status Refusal Reason SARS-CoV-2 mRNA (pqpfpsg-vgyk-lpzus) vax 1 04/29/22 Given influenza virus vaccine, [...] Pneumococcal Vaccine (oldterm) 11/07/98 Given 1Result Comment: [facility]-[id number] 2Result Comment: [facility]# [address] [phone] 3Location History: [place] 4Result Comment: [06/30/2017] HIGH DOSE REC[facility]EVED AT [facility] 5Resconstance Comment: [08/12/2015] Received at [facility] 6Result Comment: Pfizer right deltoid lot [id number] exp 06-06-2021 [facility] 7Admin Note: GIVEN IN CLINIC SHAM [...] 03/24/22 10:26:00 EDT, Route to Pharmacy Electronically, [facility], 175, cm, 03/05/22 11:48:00 EDT, Height, 84.1, kg, 06/07/21 4:26:00 EDT,... Start Date: 03/24/22 Status: Ordered amLODIPine 5 mg oral tablet 1 tablet, By Mouth, Daily, # 90 tablet, 1 Refills, [facility], 175, cm, 02/09/22 10:10:00 [...] tablet, 1 Refills, 09/01/21 11:50:00 EDT, [facility], 175, cm, 08/12/21 15:35:00 EDT, Height, 84.1, kg, 06/07/21 4:26:00 EDT, Dry Weight Start Date: 09/01/21 Status: Ordered Dilaudid Inj 0.2 mg, Injection, IV Push Slowly, Once, PRN for Pain , Severe, Routine, 05/05/22 14:21:00 EDT Start Date: 05/05/22 Stop Date: 05/05/22 Status: Completed Eliquis 2.5 mg oral tablet 1 tablet, By Mouth, 2 times a day, # 180 tablet, 9 Refills, [facility], 175, cm, 02/09/22 10:10:00 EDT, Height, 84.1, kg, 06/07/21 4:26:00 EDT, Dry Weight Start Date: 02/10/22 Status: Ordered LORazepam 1 mg oral tablet 1 tablet = 1 mg, By Mouth, Daily at bedtime, to fill on Monday 03/26 before weekend, # 30 tablet, 0 Refills, Maintenance, 04/22/22 13:24:00 EDT, [facility], 175, cm, 04/14/22 12:46:00 EDT, Height, 84.1, kg, 06/07/21 4:26:00 EDT, . Start Date: 04/22/22 Status: Ordered magnesium oxide 400 mg oral tablet 1 tablet, By Mouth, Daily, # 90 tablet, 1 Refills, [facility], 175, cm, 02/09/22 10:10:00 [...] Start Date: 05/05/22 Status: Ordered nystatin topical 037216 u/gm powder 1 application, Topically, 2 times a day, # 60 Gm, 5 Refills, Maintenance, 01/14/22 10:20:00 EST, Powder, [facility], Partial fill upon patient request if the prescription is for a schedule II opioid drug., 1 application Topically... Start Date: 01/14/22 Status: Ordered omeprazole 20 mg oral enteric coated capsule 1 capsule, By Mouth, Daily, # 90 capsule, 0 Refills, [facility], 175, cm, 02/09/22 10:10:00 EDT, Height, 84.1, kg, 06/07/21 4:26:00 EDT, Dry Weight Start Date: 02/10/22 Status: Ordered sertraline 25 mg oral tablet 1 tablet = 25 mg, By Mouth, Daily, # 30 tablet, 4 Refills, Maintenance, 04/29/22 11:16:00 EDT, Tablet, [facility], Partial fill upon patient request if the prescription is for a schedule II opioid drug., 175, cm, 04/29/22 10:58:00... Start Date: 04/29/22 Status: Ordered tamsulosin 0.4 mg oral capsule 1, capsule, By Mouth, Daily at bedtime, # 90 capsule, Refills 0, Route to Pharmacy Electronically, [facility], 175, cm, 02/09/22 10:10:00 EDT, Height, 84.1, kg, 06/07/21 4:26:00 EDT, Dry Weight Start Date: 02/12/22 Status: Ordered thiamine 100 mg oral tablet 100 mg, 1, tablet, By Mouth, Daily, # 30 tablet, Refills 11, Tot. 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 12giardiam,o/p ,culture neg 13normal IGA/TTG 14workup 15urology addressing [id number] 17ortho 18chronic 19RFA 20djd xray 2-015 21xray 2004 LS arthritis etc 22BCG 23carcinoma in situ 24saw ortho 25s aw ortho;injected SEVERE pain 26endocrinology addressing 27MRI pti ;refer endo 28mri c spine 2014 29per hematology ? 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;to follow 30workup in progress Diagnosis Diagnosis Type Effective Dates Health Status Clinical Service Informant Mild major depression Discharge Diagnosis 05/05/22 Non-Specified Memory loss Discharge Diagnosis 05/05/22 Non-Specified Chronic gout Discharge Diagnosis 05/05/22 Non-Specified Vital Signs Most recent to oldest [Reference Range]: 1 2 3 Weight 90.5 kg (05/04/22 11:00 PM) Oxygen Saturation [94-100 %] 95 % (05/05/22 4:09 PM) 97 % (05/05/22 8:02 AM) 95 % (05/05/22 4:00 AM) Pulse Rate [55-90 bpm] 64 bpm (05/05/22 4:09 PM) 60 bpm (05/05/22 8:02 AM) 65 bpm (05/05/22 4:00 AM) Blood Pressure [90-138/55-84 mm Hg] 180/86mm Hg *H* (05/05/22 4:09 PM) 149/72mm Hg *H* (05/05/22 8:02 AM) 144/76mm Hg *H* (05/05/22 4:00 AM) Respiratory Rate [16-30 br/min] 17 br/min (05/05/22 4:09 PM) 15 br/min *L* (05/05/22 2:07 PM) 17 br/min (05/05/22 8:02 AM) Temperature [96.8-100.4 DegF] 98.0 DegF (05/05/22 4:09 PM) 97.8 DegF (05/05/22 8:02 AM) 97.7 DegF (05/05/22 4:00 AM) Mode of Delivery (Oxygen) Room air (05/05/22 4:09 PM) Room air (05/05/22 8:02 AM) Room air (05/05/22 4:00 AM) Blood pressure sites Arm, left (05/05/22 4:09 PM) Arm, left (05/05/22 8:02 AM) Arm, right (05/05/22 4:00 AM) Temperature Route Oral (05/05/22 4:09 PM) Oral (05/05/22 8:02 AM) Oral (05/05/22 4:00 AM) Weight Obtained Via Bed scale (05/04/22 11:00 PM) Social History Social History Type Response Smoking Status Former smoker, quit more than 30 days ago entered on: 03/01/19 Sex
--- OUTSIDE RECORDS SUMMARY | 2023-10-05 09:52 | XMS_ITS | Continuity of Care Document ---
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 Phone Charisma LENZ, Michael Boston Primary Care Physician Encounter [facility] [place] Date(s): 04/06/22 - 05/06/22 [facility] [address] [place] [address]- Allergies, Adverse Reactions, Alerts Substance Reaction Severity Status lisinopril 1, 2 Active Effexor dizziness Active Remeron 3 dizziness Active Bee Stings Active gabapentin unknown Active carvedilol 4 Active citalopram dizzy Active Percocet vomiting Active Welchol muscle and joint aches Activ [...] Vaccine Date Status Refusal Reason SARS-CoV-2 mRNA (qafcawo-[id number]) vax 1 04/29/22 Given influenza virus vaccine, [...] (oldterm) 11/07/98 Given 1Result Comment: [facility]-[id number] 2Result Comment: [facility]# [address] [phone] 3Location History: [place] 4Result Comment: [06/30/2017] HIGH DOSE RECIEVED AT [facility] 5Resconstance Comment: [08/12/2015] Re[place] [facility] 6Result Comment: Pfizer right deltoid lot [id number] exp 06-06-2021 [facility] 7Admin Note: GIVEN IN CLINIC SHAM 8Admin [...] tablet, 0 Refills, Maintenance, 04/22/22 13:24:00 EDT, [facility], 175, cm, 04/14/22 12:46:00 [...] Start Date: 05/05/22 Status: Ordered nystatin topical [id number] u/gm powder 1 application, Topically, 2 times [...] 4 Refills, Maintenance, 04/29/22 11:16:00 EDT, Tablet, [facility], Partial [...] Active Anxiety(Confirmed) Active Aortic valve prosthesis pres [id number] TAVR 2017(Confirmed) 2, 3 Active Arteriosclerotic heart [...] 25 Active PAF (paroxysmal atrial fibri llation) [id number] 6(Confirmed) Active 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 12giardiam,o/p ,culture neg 13normal IGA/TTG 14workup 15urology addressing [id number] 17ortho 18chronic 19RFA 20djd xray 2-015 21xray [...]
--- OUTSIDE RECORDS SUMMARY | 2023-10-05 09:52 | XMS_ITS | Continuity of Care Document ---
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 Name Role Phone Charisma LENZ, Michael Boston Primary Care Physician [phone] Encounter [facility] [place] Date(s): 07/23/22 - 09/10/22 [facility] [address] [place] [address]- Attending Physician: Kyra BROWN, Giovana Mercado Admitting Physician: Kyra BROWN, Giovana Mercado Referring Physician: Michael Zafar MD Allergies, Adverse [...] Vaccine Date Status Refusal Reason SARS-CoV-2 mRNA (ciwgaen-mpqs-iuhvk) vax 1 04/29/22 Given influenza virus vaccine, [...] Vaccine (oldterm) 11/07/98 Given 1Result Comment: [facility]-[id number] 2Result Comment: [facility]# [address] [phone] 3Location History: [place] 4Result Comment: [06/30/2017] HIGH DOSE RECIEVED AT [facility] 5Result Comment: [08/12/2015] Received at [facility] 6Result Comment: Pfizer right deltoid lot [id number] exp 06-06-2021 [facility] 7Admin Note: GIVEN IN CLINIC [...] 09/05/22 12:57:00 EDT, Route to Pharmacy Electronically, [facility], 175, cm, 07/22/22 14:43:00 EDT, Height, 84.1, kg, 06/07/21 4:26:00 EDT, Dry Weight Start Date: 09/05/22 Status: Ordered amLODIPine 5 mg oral tablet 1 tablet, By Mouth, Daily, # 90 tablet, 1 Refills, Maintenance, 08/07/22 10:52:00 EDT, [facility], 175, cm, 07/22/22 14:43:00 EDT, Height, [...] a day, # 180 tablet, 9 Refills, [facility], 175, cm, 02/09/22 10:10:00 EDT, Height, 84.1, kg, 06/07/21 4:26:00 EDT, Dry Weight Start Date: 02/10/22 Status: Ordered LORazepam 1 mg oral tablet 1 tablet = 1 mg, By Mouth, Daily at bedtime, to refill on due date, 09/09/22 for refill., # 30 tablet, 0 Refills, Maintenance, 08/30/22 7:50:00 EDT, [facility], 175, cm, 07/22/22 14:43:00 EDT, Height, 84.1, kg, 06/07/21 4:26:00 EDT... Start Date: 08/30/22 Status: Ordered magnesium oxide 400 mg oral tablet 1 tablet, By Mouth, Daily, # 90 tablet, 1 Refills, Maintenance, 08/09/22 9:27:00 EDT, [facility], 175, cm, 07/22/22 14:43:00 EDT, Height, 84.1, kg, 06/07/21 4:26:00 EDT, Dry Weight Start Date: 08/09/22 Status: Ordered magnesium oxide 400 mg oral tablet 1 tablet, By Mouth, Daily, # 90 tablet, 11 Refills, Maintenance, 08/09/22 9:27:00 EDT, [facility], 175, cm, 07/22/22 14:43:00 EDT, Height, [...] Start Date: 05/05/22 Status: Ordered nystatin topical 715190 u/gm powder 1 application, Topically, 2 times a day, # 60 Gm, 5 Refills, Maintenance, 01/14/22 10:20:00 EST, Powder, [facility], Partial fill upon patient request if the prescription is for a schedule II opioid drug., 1 application Topically... Start Date: 01/14/22 Status: Ordered omeprazole 20 mg oral enteric coated capsule 1 capsule, By Mouth, Daily, # 90 capsule, 0 Refills, Maintenance, 08/07/22 10:53:00 EDT, [facility], 175, cm, 07/22/22 14:43:00 EDT, Height, 84.1, kg, 06/07/21 4:26:00 EDT, Dry Weight Start Date: 08/07/22 Status: Ordered sertraline 50 mg oral tablet 1 tablet = 50 mg, By Mouth, Daily, # 90 tablet, 1 Refills, Maintenance, 06/10/22 17:09:00 EDT, Tablet, [facility], Partial fill upon patient request if the prescription is for a schedule II opioid drug., 175, cm, 06/04/22 11:38:00... Start Date: 06/10/22 Status: Ordered tamsulosin 0.4 mg oral capsule 1, capsule, By Mouth, Daily at bedtime, # 90 capsule, Refills 1, Tot. Refills 1, 05/13/22 12:10:00 EDT, Route to Pharmacy Electronically, [facility], 175, cm, 05/12/22 13:46:00 EDT, Height, [...] 08/09/22 9:27:00 EDT, Route to Pharmacy Electronically, [facility], 175, cm, 07/22/22 14:43:00 EDT, Height, 84.1, kg, 06/07/21 4:26:00 EDT, Dry Weight Start Date: 08/09/22 Status: Ordered Vitamin B1 100 mg oral tablet 1, tablet, By Mouth, Daily, # 30 tablet, Refills 11, Maintenance, 08/09/22 9:27:00 EDT, Route to Pharmacy Electronically, [facility], 175, cm, 07/22/22 14:43:00 EDT, Height, [...] Active Anxiety Confirmed Active Aortic valve prosthesis [id number] TAVR 2017 2, 3 Confirmed Active Arteriosclerotic [...] Confirmed 07/22/22 Active PAF (paroxysmal atrial fibrillation) [id number] 6 Confirmed Active Pituitary microadenoma 26, 27, [...] call 2[employer] PERICARDIAL VALVE [facility] [address] 41 graft 5CABG 2002 6Dr nini addressing 7nephrolithiasis 8to workup 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 12giardiam,o/p ,culture neg 13normal IGA/TTG 14workup 15urology addressing [id number] 17ortho 18chronic 19RFA 20djd xray 2-015 21xray [...] on: 03/01/19 Sex Patient Care team information Personnel Name: Charisma LENZ, Michael Boston Address: Address: [address] [place] [id number]
--- OUTSIDE RECORDS SUMMARY | 2023-10-05 09:53 | XMS_ITS | Continuity of Care Document ---
Author Name Unknown Organization [facility] Kirk Tom lt Address [address] [place] [address]- Care Team Providers Care Regenerator Operator Name Role Phone Michael Zafar MD Primary Care Physician [phone] Encounter [facility] [id number] Date(s): 02/09/22 - 02/16/22 [facility] Adult [address] [place] [address]- Encounter Diagnosis Right-sided low back pain without sciatica(Discharge Diagnosis) - 02/09/22 Attending Physician: Not on Staff, Attending MD [...] Pneumococcal Vaccine (oldterm) 11/07/98 Given 1Result Comment: [facility]# [address] [phone] 2Location History: [place] 3Rrenée Comment: [06/30/2017] HIGH DOSE RECIEVED AT [facility] 4Rrenée Comment: [08/12/2015] [place] [facility] [place] Comment: Pfizer right deltoid lot [id number] exp 06-06-2021 [facility] 6Admin Note: GIVEN IN CLINIC SHAM [...] 09/01/21 11:50:00 EDT, Route to Pharmacy Electronically, [facility], 175, cm, 08/12/21 15:35:00 EDT, Height, 84.1, kg, 06/07/21 4:26:00 EDT,... Start Date: 09/01/21 Status: Ordered amLODIPine 5 mg oral tablet 1 tablet, By Mouth, Daily, # 90 tablet, 1 Refills, [facility], 175, cm, 02/09/22 10:10:00 [...] 90 tablet, 1 Refills, 09/01/21 11:50:00 EDT, [facility], 175, cm, 08/12/21 15:35:00 EDT, Height, 84.1, kg, 06/07/21 4:26:00 EDT, Dry Weight Start Date: 09/01/21 Status: Ordered Eliquis 2.5 mg oral tablet 1 tablet, By Mouth, 2 times a day, # 180 tablet, 9 Refills, [facility], 175, cm, 02/09/22 10:10:00 [...] 30 tablet, 0 Refills, Maintenance, 01/25/22 11:41:00EDT, [facility], 175, cm, 01/14/22 10:06:00 EST, Height, 84.1, kg, 06/07/21 4:26:00 EDT, Dry Weight Start Date: 01/25/22 Status: Ordered magnesium oxide 400 mg oral tablet 1 tablet, By Mouth, Daily, # 90 tablet, 1 Refills, [facility], 175, cm, 02/09/22 10:10:00 EDT, Height, 84.1, kg, 06/07/21 4:26:00 EDT, Dry Weight Start Date: 02/10/22 Status: Ordered melatonin 5 mg oral tablet By Mouth, Daily at bedtime, 0 Refills, Maintenance, 08/08/20 9:44:00 EDT, Tablet Start Date: 08/08/20 Status: Ordered nystatin topical 508642 u/gm powder 1 application, Topically, 2 times a day, # 60 Gm, 5 Refills, Maintenance, 01/14/22 10:20:00 EST, Powder, [facility], Partial fill upon patient request if the prescription is for a schedule II opioid drug., 1 application Topically... Start Date: 01/14/22 Status: Ordered omeprazole 20 mg oral enteric coated capsule 1 capsule, By Mouth, Daily, # 90 capsule, 0 Refills, [facility], 175, cm, 02/09/22 10:10:00 EDT, Height, 84.1, kg, 06/07/21 4:26:00 EDT, Dry Weight Start Date: 02/10/22 Status: Ordered tamsulosin 0.4 mg oral capsule 1, capsule, By Mouth, Daily at bedtime, # 90 capsule, Refills 0, Route to Pharmacy Electronically, [facility], 175, cm, 02/09/22 10:10:00 EDT, Height, 84.1, kg, 06/07/21 4:26:00 EDT, Dry Weight Start Date: 02/12/22 Status: Ordered thiamine 100 mg oral tablet 100 mg, 1, tablet, By Mouth, Daily, # 30 tablet, Refills 11, Tot. 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 immune(Confirmed) 29, 30 06/22/09 Active Tricuspid insufficiency(Confirmed) Active Trochanteric bursitis of rig ht hip(Confirmed) Active Type 2 diabetes with nephropathy(Confirmed) Active Type 2 diabetes mellitus wit h peripheral angiopathy(Confirmed) Active 1educated about use epi pen /when call 2CARPENTIER PERICARDIAL VALVE [facility] [id number] 41 graft 5CABG 2002 6Dr nini addressing 7nephrolithiasis 8to workup 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 12giardiam,o/p ,culture neg 13normal IGA/TTG 14workup 15urology addressing [id number] 17ortho 18chronic 19RFA 20djd xray 2-015 21xray 2004 LS arthritis etc 22BCG 23carcinoma in situ 24saw ortho 25s aw ortho;injected SEVERE pain 26endocrinology addressing 27MRI pti ;refer endo 28mri c spine 2014 29per hematology ? 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;to follow 30workup in progress Diagnosis Diagnosis Type Effective Dates Health Status Cl inical Service Informant Right-sided low back pain without sciatica Discharge Diagnosis 02/09/22 Vital Signs Most recent to oldest [Reference Range]: 1 Height 175 cm (02/09/22 10:10 AM) Social History Social History Type Response Smoking Status Former smoker, quit more than 30 days ago entered on: 03/01/19 Sex
--- OUTSIDE RECORDS SUMMARY | 2023-10-05 09:53 | XMS_ITS | Continuity of Care Document ---
Author Name Unknown Organization [facility] Tom lt Address [address] [place] [address]- Care Team Providers Care Assembler Brazer Name Role Phone Michael Zafar MD Primary Care Physician [phone] En[place] [facility] [place] Date(s): 06/16/20 - 06/23/20 [facility] Adult [address] [place] [address]- [facility] Encounter Diagnosis Chronic gout(Discharge Diagnosis) - 06/16/20 Chronic diarrhea episodic normal IGA TTG 2015(Discharge Diagnosis) - 06/16/20 Attending Physician: Michael Zafar MD Allergies, Adverse [...] [facility] 4Rrenée Comment: [08/12/2015] Received at [facility] [...] 2 times a day, # 6 LOT [id number] EXP 2-, # 180 tablet, 0 Refills, Maintenance, 06/13/20 11:45:00 EDT, Dry Weight Start Date: 06/13/20 Status: Ordered apixaban 2.5 mg oral tablet 1 tablet = 2.5 mg, By Mouth, 2 times a day, # 180 tablet, 3 Refills, Maintenance, 03/05/20 13:50:00EDT, [facility]/pharmacy #[id number], 176.5, cm, 12/25/19 15:48:00 EST, [...] Gm, 0 Refills, Maintenance, 10/10/19 11:35:05 EST, [place], 1 sprays Nares, Both 2 times a [...] 3 Refills, Maintenance, 12/17/19 11:48:00 EST, Tablet, [facility]/pharmacy #[id number], Rx resent from 11/03/16., 176.5, cm, 12/17/19 11:35:00 EST, Height, 83.4, kg, 11/02/18 13:42:00 EST, Dry Weight Start Date: 12/17/19 Status: Ordered LORazepam 2 mg oral tablet 1 tablet = 2 mg, By Mouth, 2 times a day, # 60 tablet, 0 Refills, Maintenance, 06/16/20 13:49:00 EDT, [facility]/pharmacy #[id number], 176.5, cm, 06/13/20 12:04:00 EDT, Height, 83.4, kg, 11/02/18 13:42:00 EST, Dry Weight Start Date: 06/16/20 Status: Ordered magnesium oxide 400 mg oral tablet 1 tablet = 400 mg, By Mouth, 2 times a day, # 60 tablet, 3 Refills, Maintenance, 06/16/20 11:54:00 EDT, [facility]/pharmacy #[id number], 176.5, cm, 06/13/20 12:04:00 EDT, Height, 83.4, kg, 11/02/18 13:42:00 EST, Dry Weight Start Date: 06/16/20 Status: Ordered metoprolol 25 mg oral tablet, extended release 25 mg, 1, tablet, By Mouth, Daily, # 90 tablet, Refills 3, Tot. Refills 3, Maintenance, 06/16/20 9:41:00 EDT, Route to Pharmacy Electronically, [facility]/pharmacy #[id number], succinate, 176.5, cm, 06/13/20 12:04:00 EDT, Height, 83.4, kg, 11/02/18 13:42:00 EST, D... Start Date: 06/16/20 Stop Date: 06/11/21 Status: Ordered omeprazole 20 mg oral delayed release tablet 1 tablet = 20 mg, By Mouth, Daily, # 90 tablet, 3 Refills, Maintenance, 12/17/19 11:48:00 EST, EC Tablet, [facility]/pharmacy #[id number], 176.5, cm, 12/17/19 11:35:00 EST, Height, 83.4, kg, 11/02/18 13:42:00 EST, Dry Weight Start Date: 12/17/19 Status: Ordered tamsulosin 0.4 mg oral capsule 0.4 mg, By Mouth, Daily at bedtime, # 90 capsule, Refills 3, Tot. Refills 3, Maintenance, 12/17/19 11:48:00 EST, Route to Pharmacy Electronically, [facility]/pharmacy #[id number], 176.5, cm, 12/17/19 11:35:00 EST, [...] Active Anxiety(Confirmed) Active Aortic valve prosthesis pres [id number] TAVR 2017(Confirmed) 2, 3 Active Arteriosclerotic heart [...] 26 Active PAF (paroxysmal atrial fibri llation) [id number] 6(Confirmed) Active Pituitary microadenoma(Confi rmed) 27, 28, 29 Active Restless legs syndrome (RLS)(Confirmed) Active Thrombocytopenia(Confirmed) 30, 31 06/22/09 Active Tricuspid insufficiency(Confirmed) Active Trochanteric bursitis of rig ht hip(Confirmed) Active Type 2 diabetes with nephropathy(Confirmed) Active Type 2 diabetes mellitus wit h peripheral angiopathy(Confirmed) Active 1educated about use epi pen /when call 2CARPENTIER PERICARDIAL VALVE [facility] [address] 41 graft 5CABG 2002 6Dr nini addressing 7nephrolithiasis 8to workup 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 12giardiam,o/p ,culture neg 13normal IGA/TTG 14workup 15urology addressing [id number] 17ortho 18chronic 19RFA 20djd xray 2-015 21xray [...] inical Service Informant Chronic gout Discharge Diagnosis 06/16/20 Chronic diarrhea episodic normal IGA TTG 2015 Discharge Diagnosis 06/16/20 Social History Social History Type Response Smoking Status Former smoker, quit more than 30 days ago entered on: 03/01/19 Sex
--- OUTSIDE RECORDS SUMMARY | 2023-10-05 09:53 | XMS_ITS | Continuity of Care Document ---
Author Name Unknown Organization [facility] Anders Bradley Tom lt Address [address] [place] [address]- Care Team Providers Care Supplier Manager Name Role Phone Leo Breen DO Primary Care Physician Encounter [facility] Date(s): 08/12/23 - 09/11/23 [facility] Adult [address] [place] [address]- Allergies, Adverse Reactions, Alerts Substance Reaction Severity [...] vaccine, inactivated 11/27/10 Give n SARS-CoV-2 mRNA ([id number]) vax 6 04/29/22 Given SARS-CoV-2 (COVID-19) mRNA [...] Pneumococcal Vaccine (oldterm) 11/07/98 Given 1Result Comment: [id number] 2Result Comment: [facility]# ON [address] [phone] 3[facility] 4Result Comment: [06/30/2017] HIGH DOSE RECIEVED AT [facility] 5Resconstance Comment: [08/12/2015] [place] [facility] [place] 6[place] Comment: [facility]-[id number] 7Result Comment: Pfizer right deltoid lot [id number] exp 06-06-2021 [facility] 8Admin Note: GIVEN IN CLINIC SHAM 9Admin [...] 04/07/23 14:29:00 EDT, Route to Pharmacy Electronically, [facility], 175, cm, 03/16/23 12:17:00 EDT, Height, 84.1, kg, 06/07/21 4:26:00 EDT, Dry Weight Start Date: 04/07/23 Status: Ordered amLODIPine 5 mg oral tablet 1 tablet, By Mouth, Daily, # 90 tablet, 1 Refills, Maintenance, 07/05/23 13:28:00 EDT, [facility], 175, cm, 06/13/23 13:20:00 EDT, [...] tablet, 1 Refills, Maintenance, 05/13/23 10:04:00 EDT, [facility], 175, cm, 04/12/23 11:54:00 EDT, Height, 84.1, kg, 06/07/21 4:26:00 EDT, Dry Weight Start Date: 05/13/23 Status: Ordered Eliquis 2.5 mg oral tablet 1 tablet, By Mouth, 2 times a day, # 180 tablet, 9 Refills, 02/18/23 17:26:00 EDT, [facility], 175, cm, 01/24/23 11:05:00 EDT, [...] Replace Required Details, Route to Pharmacy Electronically, [facility], 175, cm, 06/13/23... Start Date: 06/17/23 Status: Ordered LORazepam 0.5 mg oral tablet See Instructions, take as directed altrating with 1mg dose, # 12 each, 1 Refills, Maintenance, 07/27/23 10:26:00 EDT, Tablet, [facility], starting to wean down Partial fill upon patient request if the prescription is for a schedul... Start Date: 07/27/23 Status: Ordered LORazepam 1 mg oral tablet 1 tablet = 1 mg, By Mouth, Daily at bedtime, PRN as needed for anxiety, taper as directed, # 30 tablet, 1 Refills, Maintenance, 06/16/23 8:19:00 EDT, [facility], 175, cm, 06/13/2313:20:00 EDT, Height Start Date: 06/16/23 Status: Ordered magnesium oxide 400 mg oral tablet 1 tablet, By Mouth, Daily, # 90 tablet, 11 Refills, Maintenance, 08/13/23 17:38:00 EDT, [facility], 175, cm, 08/12/23 11:45:00 EDT, Height Start Date: 08/13/23 Status: Ordered nystatin topical [id number] u/gm powder 1 application, Topically, 2 times a day, # 60 Gm, 1 Refills, Maintenance, 07/17/23 18:25:00 EDT, Powder, [facility], 1 application Topically 2 times a day, 175, cm, 06/13/23 13:20:00 EDT, Height Start Date: 07/17/23 Status: Ordered omeprazole 20 mg oral enteric coated capsule 1 capsule, By Mouth, Daily, # 90 capsule, 1 Refills, Maintenance, 06/13/23 13:22:00 EDT, [facility], 175, cm, 06/13/23 13:20:00 EDT, Height Start Date: 06/13/23 Status: Ordered tamsulosin 0.4 mg oral capsule 1, capsule, By Mouth, Daily at bedtime, # 90 capsule, Refills 1, Maintenance, 05/13/23 10:04:00 EDT, Route to Pharmacy Electronically, [facility], 175, cm, 04/12/23 11:54:00 EDT,Height, 84.1, kg, 06/07/21 4:26:00 EDT, Dry Weight Start Date: 05/13/23 Status: Ordered Vitamin B1 100 mg oral tablet 1, tablet, By Mouth, Daily, # 30 tablet, Refills 11, Maintenance, 08/13/23 17:38:00 EDT, Route to Pharmacy Electronically, [facility], 175, cm, 08/12/23 11:45:00 EDT, [...] Active Anxiety Confirmed Active Aortic valve prosthesis [id number] TAVR 2017 1, 2 Confirmed Active Arteriosclerotic [...] Confirmed 07/22/22 Active PAF (paroxysmal atrial fibrillation) [id number] 6 Confirmed Active 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 11giardiam,o/p ,culture neg 12normal IGA/TTG 13workup [id number] 15chronic 16RFA 17djd xray 2-015 18xray 2004 [...] Care Nurse Name: Giovana Dodd NP Position: [facility] PCO Associate Professional Member Role: Lifetime Consulting Provider Address: Address: [address] [place] [address]- [place] Name: Adam Dennis MD Position: [facility] Cardiology MD Member Role: Lifetime Consulting Physician Address: Address: [address] [place] [address] [address] [place] [address]- [place] Name: Julia Yu RN Position: S [...] Primary Care Nurse Name: Deb Brito Position: [facility] Rough And Trueing Machine Operator Member Role: Screen Printing Machine Operator Helper Name: Leo Breen DO Position: [facility] Physician - Primary Care Member Role: PCP Address: Address: [address] [place] [address]- Name: Vale CHUN, Viki Eduardo Position: [facility] RN Member Role: Primary Care Nurse Care Team Related Persons Name: SARWAT HENRIQUEZ Address: [address] [place] [address] Name: JOSEFINA CONTRERAS Address: [address] [place] [address]
--- OUTSIDE RECORDS SUMMARY | 2023-10-05 09:53 | XMS_ITS | Continuity of Care Document ---
Author Name Unknown Organization [facility] Anders Bradley Tom lt Address [address] [place] [address]- Care Team Providers Care Streetcar Operator Name Role Phone Leo Breen DO Primary Care Physician Encounter [facility] Date(s): 09/01/23 - 10/01/23 [facility] Adult [address] [place] [address]- Allergies, Adverse Reactions, Alerts Substance Reaction Severity [...] vaccine, inactivated 11/27/10 Give n SARS-CoV-2 mRNA ([id number]) vax 6 04/29/22 Given SARS-CoV-2 (COVID-19) mRNA [...] Pneumococcal Vaccine (oldterm) 11/07/98 Given 1Result Comment: [id number] 2Result Comment: [facility]# [address] [phone] [facility] 4Result Comment: [06/30/2017] HIGH DOSE RECIEVED AT [place] 5Resconstance Comment: [08/12/2015] Received at [facility] 6Result Comment: [facility]-[id number] 7Result Comment: Pfizer right deltoid lot [id number] exp 06-06-2021 [facility] 8Admin Note: GIVEN IN CLINIC SHAM 9Admin Note: given in clinic 10Admin Note: historical data Medications acetaminophen 325 mg oral tablet 975 mg, By Mouth, Every 8 hours, Refills 0, Maintenance, 09/13/23 12:27:00 EST, Partial fill upon patient request if the prescription is for a schedule II opioid drug. Start Date: 09/13/23 Status: Ordered allopurinol 100 mg oral tablet 2, tablet, By Mouth, Daily, # 60 tablet, Refills 5, Tot. Refills 5, Maintenance, 04/07/23 14:29:00 EDT, Route to Pharmacy Electronically, [facility], 175, cm, 03/16/23 12:17:00 EDT, Height, 84.1, kg, 06/07/21 4:26:00 EDT, Dry Weight Start Date: 04/07/23 Status: Ordered amLODIPine 5 mg oral tablet 1 tablet, By Mouth, Daily, # 90 tablet, 1 Refills, Maintenance, 07/05/23 13:28:00 EDT, [facility], 175, cm, 06/13/23 13:20:00 EDT, Height [...] tablet, 1 Refills, Maintenance, 05/13/23 10:04:00 EDT, [facility], 175, cm, 04/12/23 11:54:00 EDT, Height, 84.1, kg, 06/07/21 4:26:00 EDT, Dry Weight Start Date: 05/13/23 Status: Ordered Colace sodium 100 mg oral capsule 100 mg, 1, capsule, By Mouth, 2 times a day, Refills 0, Maintenance, 09/13/23 12:29:00 EST, Partialfill upon patient request if the prescription is for a schedule II opioid drug. Start Date: 09/13/23 Status: Ordered Eliquis 2.5 mg oral tablet 1 tablet, By Mouth, 2 times a day, # 180 tablet, 9 Refills, 02/18/23 17:26:00 EDT, [facility], 175, cm, 01/24/23 11:05:00 EDT, Height, 84.1, kg, 06/07/21 4:26:00 EDT, Dry Weight Start Date: 02/18/23 Status: Ordered finasteride 5 mg oral tablet 0 Refills, Maintenance, 06/13/23 12:58:00 EDT, Partial fill upon patient request if the prescription is for a schedule II opioid drug. Start Date: 06/13/23 Status: Ordered folic acid 1 mg oral tablet 1 mg, By Mouth, Daily, Refills 0, Maintenance, 09/13/23 12:28:00 EST, Partial fill upon patient request if the prescription is for a schedule II opioid drug. Start Date: 09/13/23 Status: Ordered furosemide 20 mg oral tablet See Instructions, TAKE 1 TABLET BY MOUTH EVERY DAY, # 30 tablet, Refills 2, Tot. Refills 2, Maintenance, 06/17/23 11:05:00 EDT, Instructions Replace Required Details, Route to Pharmacy Electronically, [facility], 175, cm, 06/13/23... Start Date: 06/17/23 Status: Ordered HydroCORTisone 1% Topical 1 applicator, Topically, 3 times a day, 0 Refills, Maintenance, Ointment Start Date: 09/13/23 Status: Ordered magnesium oxide 400 mg oral tablet 1 tablet, By Mouth, Daily, # 90 tablet, 11 Refills, Maintenance, 08/13/23 17:38:00 EDT, [facility], 175, cm, 08/12/23 11:45:00 EDT, Height Start Date: 08/13/23 Status: Ordered melatonin 3 mg oral tablet = 3 mg, By Mouth, Daily at bedtime, 0 Refills, Maintenance, 09/13/23 12:29:00 EST, Tablet, Partial fill upon patient request if the prescription is for a schedule II opioid drug. Start Date: 09/13/23 Status: Ordered MiraLax Powder 1 pack/packet = 17 Gm, By Mouth, 2 times a day, 0 Refills, Maintenance, 09/13/23 12:29:00 EST, Powder, Partial fill upon patient request if the prescription is for a schedule II opioid drug. Start Date: 09/13/23 Status: Ordered Multivitamin Tablet 1 tablet, By Mouth, Daily, 0 Refills, Maintenance, 09/13/23 12:28:00 EST, Tablet, Partial fill uponpatient request if the prescription is for a schedule II opioid drug. Start Date: 09/13/23 Status: Ordered nystatin topical 121949 u/gm powder 1 application, Topically, 2 times a day, # 60 Gm, 1 Refills, Maintenance, 07/17/23 18:25:00 EDT, Powder, [facility], 1 application Topically 2 times a day, 175, cm, 06/13/23 13:20:00 EDT, Height Start Date: 07/17/23 Status: Ordered omeprazole 20 mg oral enteric coated capsule 1 capsule, By Mouth, Daily, # 90 capsule, 1 Refills, Maintenance, 06/13/23 13:22:00 EDT, [facility], 175, cm, 06/13/23 13:20:00 EDT, Height Start Date: 06/13/23 Status: Ordered Pyridoxine Tablet 50 mg, By Mouth, Daily, Refills 0, Maintenance, 09/13/23 12:29:00 EST, Partial fill upon patient request if the prescription is for a schedule II opioid drug. Start Date: 09/13/23 Status: Ordered Senna 8.6 mg oral tablet 17.2 mg, 2, tablet, By Mouth, Daily, Refills 0, Maintenance, 09/13/23 12:29:00 EST, Tablet, Partialfill upon patient request if the prescription is for a schedule II opioid drug. Start Date: 09/13/23 Status: Ordered tamsulosin 0.4 mg oral capsule 1, capsule, By Mouth, Daily at bedtime, # 90 capsule, Refills 1, Maintenance, 05/13/23 10:04:00 EDT, Route to Pharmacy Electronically, [facility], 175, cm, 04/12/23 11:54:00 EDT,Height, 84.1, kg, 06/07/21 4:26:00 EDT, Dry Weight Start Date: 05/13/23 Status: Ordered thiamine 100 mg oral tablet 100 mg, By Mouth, 2 times a day, Refills 0, Maintenance, 09/13/23 12:28:00 EST, Partial fill upon patient request if the prescription is for a schedule II opioid drug. Start Date: 09/13/23 Status: Ordered Vitamin D3 2000 intl units oral capsule 1 capsule = 2,000 International_Units, By Mouth, Daily, # 30 capsule, 11 Refills, Maintenance Start Date: 01/25/13 Stop Date: 01/20/14 Status: Ordered Problem List Condition Confirmation Course Effective Dates Status H ealth Status Informant Adjustment disorder with depressed mood Confirmed Active Memory loss noemal b12,thiamine tsh Confirmed Active Anxiety Confirmed Active Aortic valve prosthesis [id number] TAVR 2018 1, 2 Confirmed Active Arteriosclerotic heart disease [...] Confirmed 07/22/22 Active PAF (paroxysmal atrial fibrillation) [id number] 6 Confirmed Active 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 11giardiam,o/p ,culture neg 12normal IGA/TTG 13workup [id number] 15chronic 16RFA 17djd xray 2-015 18xray 2005 [...] Team Personnel Name: Dang Moser RN Position: [facility] RN Member Role: Primary Care Nurse Name: Giovana Dodd NP Position: [facility] PCO Associate Professional Member Role: Lifetime Consulting Provider Address: Address: [address] [place] [address]- [place] Name: Adam Dennis MD Position: [facility] Cardiology MD Member Role: Lifetime Consulting Physician Address: Address: [address] [place] [address] [address] [place] [phone]- [place] Name: Julia Yu RN Position: [facility] RN Member Role: Primary Care Nurse Name: Jo Dillon RN Position: [facility] RN Member Role: Primary Care Nurse Name: Anh Pires RN Position: [facility] RN Member Role: Primary Care Nurse Name: Lonnie Puente RN Position: [facility] RN Member Role: Primary Care Nurse Name: Jaqueline Johnson RN Position: [facility] RN Member Role: Primary Care Nurse Name: Deb Brito Position: [facility] Tool Filer Member Role: Orange Grower Name: Leo Breen DO Position: [facility] Physician - Primary Care Member Role: PCP Address: Address: [address] [place] [address] [place] [address]- [place] Name: Viki Collazo RN Position: [facility] RN Member Role: Primary Care Nurse Care Team Related Persons Name: SARWAT HENRIQUEZ Address: home [address] [place] [address] Name: JOSEFINA CONTRERAS Address: home [address] [place] [address]
--- OUTSIDE RECORDS SUMMARY | 2023-10-05 09:53 | XMS_ITS | Continuity of Care Document ---
Author Name Unknown Organization [facility] Address [address] [place] [address]- Care Team Providers Care Strategic Communications Manager Name Role Phone Charisma LENZ, Michael Boston Primary Care Physician [place] [facility] Date(s): 07/25/20 - 11/26/20 [facility] [address] [place] [address]- Attending Physician: Konstantin BROWN, Sussy Mercado Admitting Physician: Konstantin BROWN, Sussy Mercado Allergies, Adverse Reactions, Alerts Substance Reaction Severity [...] Bradford Comment: [06/30/2017] HIGH DOSE RECIEVED AT [facility] DR Lucero Comment: [08/12/2015] Received at [facility] 4Ain Note: GIVEN IN CLINIC [...] 10/20/20 11:45:00 EST, [id number] 175, cm, 10/20/20 11:12:00 EST, Height, 80.6, kg, 08/05/20 17:31:00 EDT, Dry Weight Start Date: 10/20/20 Status: Ordered apixaban 2.5 mg oral tablet 1 tablet = 2.5 mg, By Mouth, 2 times a day, # 180 tablet, 3 Refills, Maintenance, 03/05/20 13:50:00EDT, [facility]/pharmacy #[id number], 176.5, cm, 12/25/19 15:48:00 EST, Height, [...] Refills, Maintenance, 12/17/19 11:48:00 EST, Tablet, [facility]/pharmacy #[id number], Rx resent from 11/03/16., 176.5, cm, 12/17/19 11:35:00 EST, Height, 83.4, kg, 11/02/18 13:42:00 EST, Dry Weight Start Date: 12/17/19 Status: Ordered LORazepam 1 mg oral tablet 1 tablet = 1 mg, By Mouth, Daily at bedtime, # 30 tablet, 2 Refills, Maintenance, 09/08/20 12:59:00EST, [facility]/pharmacy #[id number], 175, cm, 09/08/20 12:47:00 EST, Height, [...] Maintenance, 12/17/19 11:48:00 EST, EC Tablet, [facility]/pharmacy #[id number], 176.5, cm, 12/17/19 11:35:00 EST, Height, 83.4, kg, 11/02/18 13:42:00 EST, Dry Weight Start Date: 12/17/19 Status: Ordered predniSONE 10 mg oral tablet See Instructions, 4 tablets daily for 2 days 3 tablets daily for 2 days 2 tablets daily for 2 days 1 tablet daily for 2 days, # 20 tablet, 0 Refills, Maintenance, 11/21/20 11:46:00 EST, Tablet, [facility], Partial fill upon patient re... Start Date: 11/21/20 Status: Ordered tamsulosin 0.4 mg oral capsule 0.4 mg, By Mouth, Daily at bedtime, # 90 capsule, Refills 3, Tot. Refills 3, Maintenance, 12/17/19 11:48:00 EST, [id number], 176.5, cm, 12/17/19 11:35:00 EST, Height, 83.4, kg, 11/02/18 13:42:00 EST, Dry Weight Start Date: 12/17/19 Status: Ordered thiamine 100 mg oral tablet 100 mg, 1, tablet, By Mouth, Daily, # 30 tablet, Refills 11, Tot. 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) 2, 3 Active Arteriosclerotic heart [...] 25 Active PAF (paroxysmal atrial fibri llation) [id number] 6(Confirmed) Active 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, 27, 28 Active Restless legs syndrome (RLS)(Confirmed) Active Thrombocytopenia(Confirmed) 29, 30 06/22/09 Active Tricuspid insufficiency(Confirmed) Active Trochanteric bursitis of rig ht hip(Confirmed) Active Type 2 diabetes with nephropathy(Confirmed) Active Type 2 diabetes mellitus wit h peripheral angiopathy(Confirmed) Active 1educated about use epi pen /when call 2CARPENTIER PERICARDIAL VALVE [facility] [address]40 41 graft 5CABG 2002 6Dr nini addressing 7nephrolithiasis 8to workup 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 12giardiam,o/p ,culture neg 13normal IGA/TTG 14workup 15urology addressing [id number] 17ortho 18chronic 19RFA 20djd xray 2-015 21xray [...]
--- OUTSIDE RECORDS SUMMARY | 2023-10-05 09:53 | XMS_ITS | Continuity of Care Document ---
Author Name Unknown Organization [facility] Kirk Tom lt Address [address] [place] [address]- Care Team Providers Care Ward Service Supervisor Name Role Phone Michael Zafar MD Primary Care Physician [phone] Encounter [facility] Date(s): 11/05/21 - 11/12/21 [facility] Adult [address] [place] [address]- Encounter Diagnosis Left carotid artery stenosis;prior rt cea(Discharge Diagnosis) - 11/05/21 Mass of left parotid gland 1.[address] 2020(Discharge Diagnosis) - 11/05/21 Benign Essential Hypertension(Discharge Diagnosis) - 11/05/21 Hyperlipidemia NOS(Discharge Diagnosis) - 11/05/21 Attending Physician: Michael Zafar MD Allergies, Adverse [...] Pneumococcal Vaccine (oldterm) 11/07/98 Given 1Result Comment: [facility]# ON [address] [phone] 2Location History: [place] 3Resconstance Comment: [06/30/2017] HIGH DOSE RECIEVED AT [facility] 4Rrenée Comment: [08/12/2015] Received at [facility] 5Result Comment: Pfizer right deltoid lot [id number] exp 06-06-2021 [facility] 6Admin Note: GIVEN IN CLINIC [...] EDT, Route to Pharmacy Electronically, [facility], 175, cm, 08/12/21 15:35:00 EDT, Height, 84.1, kg, 06/07/21 4:26:00 EDT,... Start Date: 09/01/21 Status: Ordered amLODIPine 5 mg oral tablet See Instructions, 1/2 at night, # 45 each, Refills 1, Tot. Refills 1, Maintenance, 06/08/21 11:27:00 EDT, Instructions Replace Required Details, Route to Pharmacy Electronically, [facility]/pharmacy #[id number], 175, cm, 06/07/21 8:16:00 EDT, [...] 1 Refills, 09/01/21 11:50:00 EDT, [facility], 175, cm, 08/12/21 15:35:00 EDT, Height, 84.1, kg, 06/07/21 4:26:00 EDT, Dry Weight Start Date: 09/01/21 Status: Ordered Eliquis 2.5 mg oral tablet 1 tablet, By Mouth, 2 times a day, # 180 tablet, 3 Refills, Maintenance, 03/17/21 11:43:00 EDT, [id number], 175, cm, 02/06/21 10:40:00 EDT, Height, 79, kg, 11/26/20 11:00:00 EST, Dry Weight Start Date: 03/17/21 Status: Ordered Lasix 20 mg oral tablet See Instructions, 1 tablet By Mouth as needed for weight gain of 2lbs in a day or 5lbs in a week, #90 tablet, Refills 3, Tot. Refills 3, Maintenance, 12/17/19 11:49:00 EST, Instructions Replace Required Details, Route to Pharmacy Electronically, [facility]/... Start Date: 12/17/19 Status: Ordered LIDODERM [...] 30 tablet, 0 Refills, Maintenance, 10/05/21 16:08:00EST, [facility], 175, cm, 09/23/21 12:36:00 EST, Height, 84.1, kg, 06/07/21 4:26:00 EDT, Dry Weight Start Date: 10/05/21 Status: Ordered magnesium oxide 400 mg oral tablet 1 tablet = 400 mg, By Mouth, Daily, # 90 tablet, 3 Refills, Maintenance, 02/12/21 17:31:00 EDT, Tablet, [facility]/pharmacy #[id number], Partial fill upon patient request [...] 0 Refills, 09/01/21 11:50:00 EDT, [facility], 175, cm, 08/12/21 15:35:00 EDT, Height, 84.1, kg, 06/07/21 4:26:00 EDT, Dry Weight Start Date: 09/01/21 Status: Ordered predniSONE 50 mg oral tablet 1 tablet = 50 mg, By Mouth, Daily, in am with food, # 3 tablet, 0 Refills, Maintenance, 10/12/21 15:26:00 EST, Tablet, [facility]/pharmacy #[id number], Partial fill upon patient request if the prescription is fora schedule II opioid drug., 175, cm, 10/12/21 14:45... Start Date: 10/12/21 Status: Ordered tamsulosin 0.4 mg oral capsule 1, capsule, By Mouth, Daily at bedtime, # 90 capsule, Refills 1, Tot. Refills 0, Maintenance, 05/08/21 14:24:00 EDT, Route to Pharmacy Electronically, [id number], 175, cm, 04/29/21 10:36:00 EDT,Height, 79, kg, 11/26/20 11:00:00 EST, Dry Weight Start Date: 05/08/21 Status: Ordered thiamine 100 mg oral tablet 100 mg, 1, tablet, By Mouth, Daily, # 30 tablet, Refills 11, Tot. 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) 2, 3 Active Arteriosclerotic heart [...] 25 Active PAF (paroxysmal atrial fibri llation) [id number] 6(Confirmed) Active 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, 27, 28 Active Restless legs syndrome (RLS)(Confirmed) Active Thrombocytopenia(Confirmed) 29, 30 06/22/09 Active Tricuspid insufficiency(Confirmed) Active Trochanteric bursitis of rig ht hip(Confirmed) Active Type 2 diabetes with nephropathy(Confirmed) Active Type 2 diabetes mellitus wit h peripheral angiopathy(Confirmed) Active 1educated about use epi pen /when call 2CARPENTIER PERICARDIAL VALVE [facility] [address] 41 graft 5CABG 2002 6Dr nini addressing 7nephrolithiasis 8to workup 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 12giardiam,o/p ,culture neg 13normal IGA/TTG 14workup 15urology addressing [id number] 17ortho 18chronic 19RFA 20djd xray 2-015 21xray 2004 LS arthritis etc 22BCG 23carcinoma in situ 24saw ortho 25s aw ortho;injected SEVERE pain 26endocrinology addressing 27MRI pti ;refer endo 28mri c spine 2014 29per hematology ? 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;to follow 30workup in progress Diagnosis Diagnosis Type Effective Dates Health Status Clinical Service Informant Left carotid artery stenosis;prior rt cea Discharge Diagnosis 11/05/21 Mass of left parotid gland 1.[address] 2020 Discharge Diagnosis 11/05/21 Benign Essential Hypertension Discharge Diagnosis 11/05/21 Hyperlipidemia NOS Discharge Diagnosis 11/05/21 Social History Social History Type Response Smoking Status Former smoker, quit more than 30 days ago entered on: 03/01/19 Sex
--- OUTSIDE RECORDS SUMMARY | 2023-10-05 09:53 | XMS_ITS | Continuity of Care Document ---
Author Name Unknown Organization [facility] Address [address] [place] [address]- Care Team Providers Care Faro Dealer Name Role Phone Charisma LENZ, Michael Boston Primary Care Physician Encounter [facility] Date(s): 03/20/21 - 04/19/21 [facility] [address] [place] [address]- Attending Physician: Ju Chavez Admitting Physician: AdmtrJu Referring Physician: Admtr, Ar8 Allergies, Adverse Reactions, Alerts Substance Reaction Severity Status lisinopril 1, 2 Active gabapentin unknown Active Remeron 3 dizziness Active carvedilol 4 [...] Given 1Result Comment: Pfizer right deltoid lot [id number] exp 06-06-2021 [facility] 2Location History: [place] 3Resconstance Comment: [06/30/2017] HIGH DOSE RECIEVED AT [facility] 4Rrenée Comment: [08/12/2015] Received at [facility] [place] 5Admin Note: GIVEN IN CLINIC SHAM 6Admin [...] 03/25/21 10:33:00 EDT, [id number], [facility], 03/20/21 12:09:00 EDT, Height, 79, kg, 11/26/20 11:00:00 EST, Dry Weight Start Date: 03/25/21 Status: Ordered amLODIPine 5 mg oral tablet 5 mg, 1, tablet, By Mouth, Daily, # 90 tablet, Refills 1, Tot. Refills 1, Maintenance, 03/14/21 5:46:00 EDT, [id number], cm, 02/06/21 10:40:00 [...] 3 Refills, Maintenance, 03/17/21 11:43:00 EDT, [facility], 175, cm, 02/06/21 10:40:00 EDT, Height, 79, [...] Maintenance, PUT 1 PATCH OVER AREA PAIN;[facility] CHEST,ONE BACK PUT ON BEDTIME.REMOVE 12 HIOURS [...] 30 tablet, 0 Refills, Maintenance, 04/16/21 12:14:00EDT, [id number], 175, cm, 03/20/21 12:09:00 EDT, Height, 79, kg, 11/26/20 11:00:00 EST, DryWeight Start Date: 04/16/21 Status: Ordered magnesium oxide 400 mg oral tablet 1 tablet = 400 mg, By Mouth, Daily, # 90 tablet, 3 Refills, Maintenance, 02/12/21 17:31:00 EDT, Tablet, [facility]/pharmacy #[id number], Partial fill upon patient request if [...] Refills, Maintenance, 02/07/21 22:44:00 EDT, EC Tablet, [facility]/pharmacy #[id number], 175, cm, 02/06/21 10:40:00 EDT, Height, 79, kg, 11/26/20 11:00:00 EST, Dry Weight Start Date: 02/07/21 Status: Ordered predniSONE 20 mg oral tablet 1 tablet = 20 mg, By Mouth, 2 times a day, with food or milk, # 6 tablet, 0 Refills, Maintenance, 02/06/21 10:49:00 EDT, Tablet, [facility]/pharmacy #[id number], Partial fill upon patient request if the prescription is for a schedule II opioid drug., 175, cm, 04/0... Start Date: 02/06/21 Status: Ordered tamsulosin 0.4 mg oral capsule 0.4 mg, By Mouth, Daily at bedtime, # 90 capsule, Refills 1, Tot. Refills 1, Maintenance, 02/07/21 22:44:00 EDT, Route to Pharmacy Electronically, [facility]/pharmacy #[id number], 175, cm, 02/06/21 10:40:00 EDT, Height, 79, kg, 11/26/20 11:00:00 EST, Dry Weight Start Date: 02/07/21 Status: Ordered thiamine 100 mg oral tablet 100 mg, 1, tablet, By Mouth, Daily, # 30 tablet, Refills 11, Tot. Refills 11, Maintenance, 09/08/2013:24:00 EST, Route to Pharmacy Electronically, 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) 2, 3 Active Arteriosclerotic heart [...] 25 Active PAF (paroxysmal atrial fibri llation) [id number] 6(Confirmed) Active 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, 27, 28 Active Restless legs syndrome (RLS)(Confirmed) Active Thrombocytopenia(Confirmed) 29, 30 06/22/09 Active Tricuspid insufficiency(Confirmed) Active Trochanteric bursitis of rig ht hip(Confirmed) Active Type 2 diabetes with nephropathy(Confirmed) Active Type 2 diabetes mellitus wit h peripheral angiopathy(Confirmed) Active 1educated about use epi pen /when call 2CARPENTIER PERICARDIAL VALVE [facility] [address] 41 graft 5CABG 2002 6Dr nini addressing 7nephrolithiasis 8to workup 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 12giardiam,o/p ,culture neg 13normal IGA/TTG 14workup 15urology addressing [id number] 17ortho 18chronic 19RFA 20djd xray 2-015 21xray [...]
--- OUTSIDE RECORDS SUMMARY | 2023-10-05 09:53 | XMS_ITS | Continuity of Care Document ---
Author Name Unknown Organization [facility] Address [address] [place] [address]- Care Team Providers Care Gas Distribution Supervisor Name Role Phone Michael Zafar MD Primary Care Physician Encounter [facility] [place] Date(s): 04/24/20 - 05/01/20 [facility] [address] [place] [address]- [facility] Attending Physician: Konstantin BROWN, Sussy Mercado Admitting Physician: Konstantin BROWN, Sussy Mercado Referring Physician: Michael Zafar MD Allergies, [...] Lucero Comment: [06/30/2017] HIGH DOSE RECIEVED AT [facility] DR Kaplan Comment: [08/12/2015] Received at [facility] [place] 5Admin Note: given in clinic 6Admin Note: [...] 180 tablet, 3 Refills, Maintenance, 03/05/20 13:50:00EDT, [facility]/pharmacy #[id number], 176.5, cm, 12/25/19 15:48:00 EST, Height, [...] Gm, 0 Refills, Maintenance, 10/10/19 11:35:05 EST, [place], 1 sprays Nares, Both 2 times a [...] 3 Refills, Maintenance, 12/17/19 11:48:00 EST, Tablet, [facility]/pharmacy #[id number], Rx resent from 11/03/16., 176.5, cm, 12/17/19 11:35:00 EST, Height, 83.4, kg, 11/02/18 13:42:00 EST, Dry Weight Start Date: 12/17/19 Status: Ordered LORazepam 2 mg oral tablet 1 tablet = 2 mg, By Mouth, 2 times a day, # 60 tablet, 0 Refills, Maintenance, 03/05/20 13:50:00 EDT, [facility]/pharmacy #[id number], 176.5, cm, 12/25/19 15:48:00 EST, Height, 83.4, kg, 11/02/18 13:42:00 EST, Dry Weight Start Date: 03/05/20 Status: Ordered metoprolol 25 mg oral tablet, extended release 25 mg, 1, tablet, By Mouth, Daily, # 90 tablet, Refills 3, Tot. Refills 3, Maintenance, 03/21/20 12:01:00 EDT, [id number], 176.5, cm, 03/21/20 8:21:00 EDT, Height, 83.4, kg, 11/02/18 13:42:00 EST, Dry Weight Start Date: 03/21/20 Status: Ordered omeprazole 20 mg oral delayed release tablet 1 tablet = 20 mg, By Mouth, Daily, # 90 tablet, 3 Refills, Maintenance, 12/17/19 11:48:00 EST, EC Tablet, [facility]/pharmacy #[id number], 176.5, cm, 12/17/19 11:35:00 EST, Height, 83.4, kg, 11/02/18 13:42:00 EST, Dry Weight Start Date: 12/17/19 Status: Ordered tamsulosin 0.4 mg oral capsule 0.4 mg, By Mouth, Daily at bedtime, # 90 capsule, Refills 3, Tot. 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) 2, 3 Active Arteriosclerotic heart [...] 23 Active PAF (paroxysmal atrial fibri llation) [id number] 6(Confirmed) Active Pituitary microadenoma(Confi rmed) 24, 25, 26 Active Restless legs syndrome (RLS)(Confirmed) Active Thrombocytopenia(Confirmed) 27, 28 06/22/09 Active Tricuspid insufficiency(Confirmed) Active Trochanteric bursitis of rig ht hip(Confirmed) Active Type 2 diabetes with nephropathy(Confirmed) Active Type 2 diabetes mellitus wit h peripheral angiopathy(Confirmed) Active 1educated about use epi pen /when call [facility] [address] 41 graft 5CABG 2002 6Dr nini addressing 7nephrolithiasis 8to workup 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 12urology addressing [id number] 14ortho 15chronic 16RFA 17djd xray 2-015 18xray 2005 LS arthritis etc 19Zung=mod depression 20BCG 21carcinoma in situ 22saw ortho 23s aw ortho;injected SEVERE pain 24endocrinology addressing 25MRI pti ;refer endo 26mri c spine 2014 27per hematology ? 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;to follow 28workup in progress Vital Signs Most recent to oldest [Reference Range]: 1 Height 176.5 cm (04/23/20 1:13 PM) Social History Social History Type Response Smoking Status Former smoker, quit more than 30 days ago entered on: 03/01/19 Sex
--- OUTSIDE RECORDS SUMMARY | 2023-10-05 09:53 | XMS_ITS | Continuity of Care Document ---
Author Name Unknown Organization [facility] [place] Address [address] [place] [address]- Care Team Providers Care Rail Car Unloader Name Role Phone Michael Zafar MD Primary Care Physician [phone] [place] [facility] [place] Date[place]s): 03/21/20 - 03/28/20 [facility] [place] [address] [place] [address]- [place] Encounter Diagnosis Depression, major(Discharge Diagnosis) - 03/21/20 Attending Physician: Michael Zafar MD Allergies, Adverse [...] [facility] 4Rrenée Comment: [08/12/2015] Received at [facility] [place] 5Admin Note: given [...] 180 tablet, 3 Refills, Maintenance, 03/05/20 13:50:00EDT, [facility]/pharmacy #[id number], 176.5, cm, 12/25/19 15:48:00 EST, Height, [...] 0 Refills, Maintenance, 03/21/20 10:41:00EDT, ER Tablet, [facility]/pharmacy #[id number], 1 tablet By Mouth Every 24 hours, 176.5, cm, 03/21/20 8:21:00 EDT, Height, 83.4, kg, 11/02/18 13:42:00 EST, Dry Weight Start Date: 03/21/20 Status: Ordered Flonase 50 mcg/inh nasal spray 1 sprays, Nares, Both, 2 times a day, # 16 Gm, 0 Refills, Maintenance, 10/10/19 11:35:05 EST, [place], 1 sprays Nares, Both 2 times a [...] 3 Refills, Maintenance, 12/17/19 11:48:00 EST, Tablet, [facility]/pharmacy #[id number], Rx resent from 11/03/16., 176.5, cm, 12/17/19 11:35:00 EST, Height, 83.4, kg, 11/02/18 13:42:00 EST, Dry Weight Start Date: 12/17/19 Status: Ordered LORazepam 2 mg oral tablet 1 tablet = 2 mg, By Mouth, 2 times a day, # 60 tablet, 0 Refills, Maintenance, 03/05/20 13:50:00 EDT, [facility]/pharmacy #[id number], 176.5, cm, 12/25/19 15:48:00 EST, Height, 83.4, kg, 11/02/18 13:42:00 EST, Dry Weight Start Date: 03/05/20 Status: Ordered metoprolol 25 mg oral tablet, extended release 25 mg, 1, tablet, By Mouth, Daily, # 90 tablet, Refills 3, Tot. Refills 3, Maintenance, 03/21/20 12:01:00 EDT, Route to Pharmacy Electronically, [facility]/pharmacy #[id number], 176.5, cm, 03/21/20 8:21:00 EDT, Height, 83.4, kg, 11/02/18 13:42:00 EST, Dry Weight Start Date: 03/21/20 Status: Ordered omeprazole 20 mg oral delayed release tablet 1 tablet = 20 mg, By Mouth, Daily, # 90 tablet, 3 Refills, Maintenance, 12/17/19 11:48:00 EST, EC Tablet, [facility]/pharmacy #[id number], 176.5, cm, 12/17/19 11:35:00 EST, Height, 83.4, kg, 11/02/18 13:42:00 EST, Dry Weight Start Date: 12/17/19 Status: Ordered tamsulosin 0.4 mg oral capsule 0.4 mg, By Mouth, Daily at bedtime, # 90 capsule, Refills 3, Tot. Refills 3, Maintenance, 12/17/19 11:48:00 EST, Route to Pharmacy Electronically, [facility]/pharmacy #[id number], 176.5, cm, 12/17/19 11:35:00 EST, Height, [...] Active Anxiety(Confirmed) Active Aortic valve prosthesis pres [id number] TAVR 2017(Confirmed) 2, 3 Active Arteriosclerotic heart [...] 23 Active PAF (paroxysmal atrial fibri llation) [id number] 6(Confirmed) Active Pituitary microadenoma(Confi rmed) 24, 25, 26 Active Restless legs syndrome (RLS)(Confirmed) Active Thrombocytopenia(Confirmed) 27, 28 06/22/09 Active Tricuspid insufficiency(Confirmed) Active Trochanteric bursitis of rig ht hip(Confirmed) Active Type 2 diabetes with nephropathy(Confirmed) Active Type 2 diabetes mellitus wit h peripheral angiopathy(Confirmed) Active 1educated about use epi pen /when call 2[facility] [address] 41 graft 5CABG 2002 6Dr nini addressing 7nephrolithiasis 8to workup 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 12urology addressing [id number] 14ortho 15chronic 16RFA 17djd xray 2-015 18xray [...] inical Service Informant Depression, major Discharge Diagnosis 03/21/20 Vital Signs Most recent to oldest [Reference Range]: 1 Height 176.5 cm (03/21/20 8:21 AM) Social History Social History Type Response Smoking Status Former smoker, quit more than 30 days ago entered on: 03/01/19 Sex
--- OUTSIDE RECORDS SUMMARY | 2023-10-05 09:53 | XMS_ITS | Continuity of Care Document ---
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 Role Phone Charisma LENZ, Michael Boston Primary Care Physician [phone] [place] [facility] [place]06[place] - 06/07/[address] [address]- Encounter Diagnosis Hematuria(Final) - 06/06/21 Chronic gout(Discharge Diagnosis) - 06/07/21 Memory loss(Discharge Diagnosis) - 06/07/21 Discharge Disposition: A-D/C Home Attending Physician: Domitila Bowman MD Admitting Physician: Vladislav Baugh MD Referring Physician: Not on Staff, Referring [...] Given 1Result Comment: Pfizer right deltoid lot [id number] exp 06-06-2021 [facility] 2Location History: [place] 3Rrenée Comment: [06/30/2017] HIGH DOSE RECIEVED AT [facility] DR Kaplan Comment: [08/12/2015] Received at [facility] [place] [place] 5Admin Note: GIVEN IN CLINIC [facility] 6Admin [...] 03/25/21 10:33:00 EDT, Route to Pharmacy Electronically, [facility]/pharmacy #[id number], 175, cm, 03/20/21 12:09:00 EDT, Height, 79, kg, 11/26/20 11:00:00 EST, Dry Weight Start Date: 03/25/21 Status: Ordered amLODIPine 5 mg oral tablet 5 mg, Tablet, By Mouth, 06/07/21 9:55:00 EDT Start Date: 06/07/21 Stop Date: 06/07/21 Status: Completed amLODIPine 5 mg oral tablet 5 mg, 1, tablet, By Mouth, Daily, # 90 tablet, Refills 1, Tot. Refills 1, Maintenance, 03/14/21 5:46:00 EDT, Route to Pharmacy Electronically, [facility]/pharmacy #[id number], 175, cm, 02/06/21 10:40:00 EDT, [...] tablet, 3 Refills, Maintenance, 03/17/21 11:43:00 EDT, [id number], 175, cm, 02/06/21 10:40:00 EDT, Height, 79, kg, 11/26/20 11:00:00 EST, Dry Weight Start Date: 03/17/21 Status: Ordered Lasix 20 mg oral tablet See Instructions, 1 tablet By Mouth as needed for weight gain of 2lbs in a day or 5lbs in a week, #90 tablet, Refills 3, Tot. Refills 3, Maintenance, 12/17/19 11:49:00 EST, Instructions Replace Required Details, Route to Pharmacy Electronically, [facility]/... Start Date: 12/17/19 Status: Ordered LIDODERM [...] 1 Refills, Maintenance, 02/07/21 22:44:00 EDT, Tablet, [facility]/pharmacy #[id number], Rx resent from 11/03/16., 175, [...] 3 Refills, Maintenance, 02/12/21 17:31:00 EDT, Tablet, [facility]/pharmacy #[id number], Partial fill upon patient request [...] capsule, 0 Refills, Maintenance, 05/11/21 7:24:00 EDT, [facility]/pharmacy #[id number], Rx resent from 05/08/21., 175, cm, 04/29/21 10:36:00 EDT, Height, 79, kg, 11/26/20 11:00:00 EST, Dry Weight Start Date: 05/11/21 Status: Ordered tamsulosin 0.4 mg oral capsule 1, capsule, By Mouth, Daily at bedtime, # 90 capsule, Refills 1, Tot. Refills 0, Maintenance, 05/08/21 14:24:00 EDT, Route to Pharmacy Electronically, [id number], 175, cm, 04/29/21 10:36:00 EDT,Height, 79, kg, 11/26/20 11:00:00 EST, Dry Weight Start Date: 05/08/21 Status: Ordered thiamine 100 mg oral tablet 100 mg, 1, tablet, By Mouth, Daily, # 30 tablet, Refills 11, Tot. 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 [address] 41 graft 5CABG 2002 6Dr nini addressing 7nephrolithiasis 8to workup 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 12giardiam,o/p ,culture neg 13normal IGA/TTG 14workup 15urology addressing [id number] 17ortho 18chronic 19RFA 20djd xray 2-015 21xray 2004 LS arthritis etc 22BCG 23carcinoma in situ 24saw ortho 25s aw ortho;injected SEVERE pain 26endocrinology addressing 27MRI pti ;refer endo 28mri c spine 2014 29per hematology ? 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;to follow 30workup in progress Diagnosis Diagnosis Type Effective Dates Health Status Cl inical Service Informant Chronic gout Discharge Diagnosis 06/07/21 Memory loss Discharge Diagnosis 06/07/21 Vital Signs Most recent to oldest [Reference Range]: 1 2 3 Height 175 cm (06/07/21 8:16 AM) 175 cm (06/07/21 3:32 AM) 175 cm (06/07/21 3:25 AM) Oxygen Saturation [94-100 %] 94 % (06/07/21 8:16 AM) 96 % (06/07/21 3:25 AM) 100 % (06/06/21 8:08 PM) Pulse Rate [55-90 bpm] 64 bpm (06/07/21 4:23 PM) 63 bpm (06/07/21 8:16 AM) 79 bpm (06/07/21 3:25 AM) Blood Pressure [90-138/55-84 mm Hg] 186/84mm Hg *H* (06/07/21 4:23 PM) 162/79mm Hg *H* (06/07/21 10:41 AM) 149/66mm Hg *H* (06/07/21 8:16 AM) Respiratory Rate [16-30 br/min] 18 br/min (06/07/21 8:16 AM) 18 br/min (06/07/21 3:25 AM) 18 br/min (06/06/21 8:08 PM) Temperature [96.8-100.4 DegF] 97.5 DegF (06/07/21 8:16 AM) 97.6 DegF (06/07/21 3:25 AM) 97 DegF (06/06/21 8:08 PM) Mode of Delivery (Oxygen) Room air (06/07/21 8:16 AM) Room air (06/07/21 3:25 AM) Room air (06/06/21 8:08 PM) Blood pressure sites Arm, left (06/07/21 3:25 AM) Arm, left (06/06/21 8:08 PM) Temperature Route Oral (06/07/21 8:16 AM) Oral (06/07/21 3:25 AM) Oral (06/06/21 8:08 PM) Dry Weight 84.1 kg (06/07/21 3:25 AM) Dry Weight Obtained Via Standing scale (06/07/21 3:25 AM) Social History Social History Type Response Smoking Status Former smoker, quit more than 30 days ago entered on: 03/01/19 Sex
--- OUTSIDE RECORDS SUMMARY | 2023-10-05 09:54 | XMS_ITS | Continuity of Care Document ---
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 Role Phone Michael Zafar MD Primary Care Physician Encounter [facility] Date(s): 04/29/22 - 05/06/22 [facility] [address] [place] [address]- Encounter Diagnosis Anxiety(Discharge Diagnosis) - 04/27/22 [facility] 2021(Discharge Diagnosis) - 04/27/22 Chronic gout(Discharge Diagnosis) - 04/27/22 Mild major depression(Discharge Diagnosis) - 04/29/22 Attending Physician: Michael Zafar MD Allergies, Adverse [...] Vaccine Date Status Refusal Reason SARS-CoV-2 mRNA ([id number]) vax 1 04/29/22 Given influenza virus vaccine, [...] 1Result Comment: [facility] [id number] 2Result Comment: [facility] [place] [address] [phone] 3Location History: [place] 4Result Comment: [06/30/2017] [facility] 5Result Comment: [08/12/2015] Received at [facility] [place] 6Result Comment: Pfizer right deltoid lot [id number] exp 06-06-2021 [facility] 7Admin Note: GIVEN IN [...] 03/24/22 10:26:00 EDT, Route to Pharmacy Electronically, [facility], 175, cm, 03/05/22 11:48:00 EDT, Height, 84.1, kg, 06/07/21 4:26:00 EDT,... Start Date: 03/24/22 Status: Ordered amLODIPine 5 mg oral tablet 1 tablet, By Mouth, Daily, # 90 tablet, 1 Refills, [facility], 175, cm, 02/09/22 10:10:00 EDT, Height, [...] 1 Refills, 09/01/21 11:50:00 EDT, [facility], 175, cm, 08/12/21 15:35:00 EDT, Height, 84.1, kg, 06/07/21 4:26:00 EDT, Dry Weight Start Date: 09/01/21 Status: Ordered Eliquis 2.5 mg oral tablet 1 tablet, By Mouth, 2 times a day, # 180 tablet, 9 Refills, [facility], 175, cm, 02/09/22 10:10:00 EDT, Height, 84.1, kg, 06/07/21 4:26:00 EDT, Dry Weight Start Date: 02/10/22 Status: Ordered LORazepam 1 mg oral tablet 1 tablet = 1 mg, By Mouth, Daily at bedtime, to fill on Monday 03/26 before weekend, # 30 tablet, 0 Refills, Maintenance, 04/22/22 13:24:00 EDT, [facility], 175, cm, 04/14/22 12:46:00 EDT, Height, 84.1, kg, 06/07/21 4:26:00 EDT, Start Date: 04/22/22 Status: Ordered magnesium oxide 400 mg oral tablet 1 tablet, By Mouth, Daily, # 90 tablet, 1 Refills, [facility], 175, cm, 02/09/22 10:10:00 EDT, Height, [...] Start Date: 05/05/22 Status: Ordered nystatin topical 394009 u/gm powder 1 application, Topically, 2 times a day, # 60 Gm, 5 Refills, Maintenance, 01/14/22 10:20:00 EST, Powder, [facility], Partial fill upon patient request if the prescription is for a schedule II opioid drug., 1 application Topically... Start Date: 01/14/22 Status: Ordered omeprazole 20 mg oral enteric coated capsule 1 capsule, By Mouth, Daily, # 90 capsule, 0 Refills, [facility], 175, cm, 02/09/22 10:10:00 EDT, Height, 84.1, kg, 06/07/21 4:26:00 EDT, Dry Weight Start Date: 02/10/22 Status: Ordered sertraline 25 mg oral tablet 1 tablet = 25 mg, By Mouth, Daily, # 30 tablet, 4 Refills, Maintenance, 04/29/22 11:16:00 EDT, Tablet, [facility], Partial fill upon patient request if the prescription is for a schedule II opioid drug., 175, cm, 04/29/22 10:58:00... Start Date: 04/29/22 Status: Ordered tamsulosin 0.4 mg oral capsule 1, capsule, By Mouth, Daily at bedtime, # 90 capsule, Refills 0, Route to Pharmacy Electronically, [facility], 175, cm, 02/09/22 10:10:00 EDT, Height, 84.1, kg, 06/07/21 4:26:00 EDT, Dry Weight Start Date: 02/12/22 Status: Ordered thiamine 100 mg oral tablet 100 mg, 1, tablet, By Mouth, Daily, # 30 tablet, Refills 11, Tot. Refills 11, Maintenance, 10/05/2116:07:00 EST, Route to Pharmacy Electronically, [facility], 175, cm, 09/23/21 12:36:00 EST, Height, [...] Active Anxiety(Confirmed) Active Aortic valve prosthesis pres [id number] TAVR 2017(Confirmed) 2, 3 Active Arteriosclerotic heart [...] 25 Active PAF (paroxysmal atrial fibri llation) [id number] 6(Confirmed) Active 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, 27, 28 Active Restless legs syndrome (RLS)(Confirmed) Active Thrombocytopenia hematology 2009 ? immune(Confirmed) 29, 30 06/22/09 Active Tricuspid insufficiency(Confirmed) Active Trochanteric bursitis of rig ht hip(Confirmed) Active Type 2 diabetes with nephropathy(Confirmed) Active Type 2 diabetes mellitus wit h peripheral angiopathy(Confirmed) Active 1educated about use epi pen /when call 2[facility] [address] 41 graft 5CABG 2002 6Dr nini addressing 7nephrolithiasis 8to workup 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 12giardiam,o/p ,culture neg 13normal IGA/TTG 14workup 15urology addressing [id number] 17ortho 18chronic 19RFA 20djd xray 2-015 21xray 2004 LS arthritis etc 22BCG 23carcinoma in situ 24saw ortho 25s aw ortho;injected SEVERE pain 26endocrinology addressing 27MRI pti ;refer endo 28mri c spine 2014 29per hematology ? 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;to follow 30workup in progress Diagnosis Diagnosis Type Effective Dates Health Status Clinical Service Informant Anxiety Discharge Diagnosis 04/27/22 Chronic gout Discharge Diagnosis 04/27/22 Chronic back pain [facility] 2021 Discharge Diagnosis 04/27/22 Mild major depression Discharge Diagnosis 04/29/22 Vital Signs Most recent to oldest [Reference Range]: 1 Height 175 cm (04/29/22 10:58 AM) Weight 84.9 kg (04/29/22 10:58 AM) Oxygen Saturation [94-100 %] 97 % (04/29/22 10:58 AM) Pulse Rate [55-90 bpm] 84 bpm (04/29/22 10:58 AM) Body Mass Index [18.5-24.99] 27.72 *H* (04/29/22 10:58 AM) Blood Pressure [90-138/55-84 mm Hg] 157/ 84mm Hg *H* (04/29/22 10:58 AM) Respiratory Rate [16-30 br/min] 16 br/mi n (04/29/22 10:58 AM) Temperature [96.8-100.4 DegF] 97.6 DegF (04/29/22 10:58 AM) Mode of Delivery (Oxygen) Room air (04/29/22 10:58 AM) Blood pressure sites Arm, left (04/29/22 10:58 AM) Temperature Route Oral (04/29/22 10:58 AM) Weight Obtained Via Standing scale (04/29/22 10:58 AM) Social History Social History Type Response Smoking Status Former smoker, quit more than 30 days ago entered on: 03/01/19 Sex
--- OUTSIDE RECORDS SUMMARY | 2023-10-05 09:54 | XMS_ITS | Continuity of Care Document ---
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 Role Phone Charisma LENZ, Michael Boston Primary Care Physician Encounter [facility] [place] Date(s): 03/05/22 - 04/04/22 [facility] [address] [place] [address] Attending Physician: Ju Chavez Admitting Physician: AdmtrJu Referring Physician: Admtr Ar8 Allergies, Adverse Reactions, Alerts Substance Reaction [...] Vaccine (oldterm) 11/07/98 Given 1Result Comment: [facility]# ON [address] [phone] 2Location History: [place] 3Resconstance Comment: [06/30/2017] HIGH DOSE RECIEVED AT [facility] 4Rrenée Comment: [08/12/2015] [place] [facility] [place] 5Result Comment: Pfizer right deltoid lot [id number] exp 06-06-2021 [facility] 6Admin Note: GIVEN IN CLINIC SHAM [...] 03/24/22 10:26:00 EDT, Route to Pharmacy Electronically, [facility], 175, cm, 03/05/22 11:48:00 EDT, Height, 84.1, kg, 06/07/21 4:26:00 EDT,... Start Date: 03/24/22 Status: Ordered amLODIPine 5 mg oral tablet 1 tablet, By Mouth, Daily, # 90 tablet, 1 Refills, [facility], 175, cm, 02/09/22 10:10:00 EDT, Height, [...] 90 tablet, 1 Refills, 09/01/21 11:50:00 EDT, [facility], 175, cm, 08/12/21 15:35:00 EDT, Height, 84.1, kg, 06/07/21 4:26:00 EDT, Dry Weight Start Date: 09/01/21 Status: Ordered Eliquis 2.5 mg oral tablet 1 tablet, By Mouth, 2 times a day, # 180 tablet, 9 Refills, [facility], 175, cm, 02/09/22 10:10:00 EDT, Height, 84.1, kg, 06/07/21 4:26:00 EDT, Dry Weight Start Date: 02/10/22 Status: Ordered LORazepam 1 mg oral tablet 1 tablet = 1 mg, By Mouth, Daily at bedtime, to fill on Monday 03/26 before weekend, # 30 tablet, 0 Refills, Maintenance, 03/22/22 13:17:00 EDT, [facility], 175, cm, 03/05/22 11:48:00 EDT, Height, 84.1, kg, 06/07/21 4:26:00 EDT, . Start Date: 03/22/22 Status: Ordered magnesium oxide 400 mg oral tablet 1 tablet, By Mouth, Daily, # 90 tablet, 1 Refills, [facility], 175, cm, 02/09/22 10:10:00 EDT, Height, 84.1, kg, 06/07/21 4:26:00 EDT, Dry Weight Start Date: 02/10/22 Status: Ordered melatonin 5 mg oral tablet By Mouth, Daily at bedtime, 0 Refills, Maintenance, 08/08/20 9:44:00 EDT, Tablet Start Date: 08/08/20 Status: Ordered nystatin topical [id number] u/gm powder 1 application, Topically, 2 times a day, # 60 Gm, 5 Refills, Maintenance, 01/14/22 10:20:00 EST, Powder, [facility], Partial fill upon patient request if the prescription is for a schedule II opioid drug., 1 application Topically... Start Date: 01/14/22 Status: Ordered omeprazole 20 mg oral enteric coated capsule 1 capsule, By Mouth, Daily, # 90 capsule, 0 Refills, [facility], 175, cm, 02/09/22 10:10:00 EDT, Height, 84.1, kg, 06/07/21 4:26:00 EDT, Dry Weight Start Date: 02/10/22 Status: Ordered tamsulosin 0.4 mg oral capsule 1, capsule, By Mouth, Daily at bedtime, # 90 capsule, Refills 0, Route to Pharmacy Electronically, [facility], 175, cm, 02/09/22 10:10:00 EDT, Height, 84.1, kg, 06/07/21 4:26:00 EDT, Dry Weight Start Date: 02/12/22 Status: Ordered thiamine 100 mg oral tablet 100 mg, 1, tablet, By Mouth, Daily, # 30 tablet, Refills 11, Tot. Refills 11, Maintenance, 10/05/2116:07:00 EST, Route to Pharmacy Electronically, [facility], 175, cm, 09/23/21 12:36:00 EST, Height, [...] Active Anxiety(Confirmed) Active Aortic valve prosthesis pres [id number] TAVR 2017(Confirmed) 2, 3 Active Arteriosclerotic heart [...] 25 Active PAF (paroxysmal atrial fibri llation) [id number] 6(Confirmed) Active 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, 27, 28 Active Restless legs syndrome (RLS)(Confirmed) Active Thrombocytopenia hematology 2009 ? immune(Confirmed) 29, 30 06/22/09 Active Tricuspid insufficiency(Confirmed) Active Trochanteric bursitis of rig ht hip(Confirmed) Active Type 2 diabetes with nephropathy(Confirmed) Active Type 2 diabetes mellitus wit h peripheral angiopathy(Confirmed) Active 1educated about use epi pen /when call 2[facility] [address] 41 graft 5CABG 2002 6Dr nini addressing 7nephrolithiasis 8to workup 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 12giardiam,o/p ,culture neg 13normal IGA/TTG 14workup 15urology addressing [id number] 17ortho 18chronic 19RFA 20djd xray 2-015 21xray [...]
--- OUTSIDE RECORDS SUMMARY | 2023-10-05 09:54 | XMS_ITS | Continuity of Care Document ---
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 [place] - 10/30/19 [facility] Adult [address] [place] [address]- [place] Encounter Diagnosis Impacted ear wax(Discharge Diagnosis) - 10/23/19 Attending Physician: Michael Zafar MD Allergies, Adverse [...] [06/30/2017] HIGH DOSE RECIEVED AT [facility] Comment: [08/12/2015] Received at [facility] [...] Maintenance, 08/08/1912:14:22 EDT, Route to Pharmacy Electronically, [id number], [facility]/pharmacy #[id number] Start Date: 08/08/19 Status: Ordered amoxicillin [...] times a day, for 14 days, lot [id number] exp 07/2020 x 2 boxes, lot [id number] exp 12/2020 x3, # 28 tablet, 6 Refills, Hard Stop 03/28/20 11:17:24 EDT, 12/21/19 11:17:24 EST,Tablet Start Date: 12/21/19 Stop Date: 03/28/20 Status: Ordered apixaban 2.5 mg oral tablet 1 tablet = 2.5 mg, By Mouth, 2 times a day, for 14 days, lot [id number] exp 05/2020 #8 BOX, # 28 tablet, [...] Gm, 0 Refills, Maintenance, 10/10/19 11:35:05 EST, [place], 1 sprays Nares, Both 2 times a day, 176.5, cm, 10/10/19 11:18:43 EST, Height, 83.4, kg, 11/02/18 13:42:46 EST, Dry Weight Start Date: 10/10/19 Status: Ordered furosemide 20 mg oral tablet See Instructions, # 90 tablet, Refills 1 Tot. Refills 1, TAKE 1 TABLET BY MOUTH EVERY DAY, [facility]/pharmacy #[id number] Start Date: 08/20/19 Status: Ordered LIDODERM [...] 3 Refills, Maintenance, Tablet, Route toPharmacy Electronically, [id number], [facility]278, Rx resent from 11/03/16. [...] 07/27/19 11:08:13 EDT, Route to Pharmacy Electronically, [id number], [facility]/pharmacy #0315 Start Date: 07/27/19 Status: Ordered omeprazole [...] 12/28/18 10:45:55 EST, Route to Pharmacy Electronically, [id number], [facility] [id number] Start Date: 12/28/18 Status: Ordered Tums 500 [...] Active Anxiety(Confirmed) Active Aortic valve prosthesis pres [id number] TAVR 2017(Confirmed) 2, 3 Active Arteriosclerotic heart [...] 25 Active PAF (paroxysmal atrial fibri llation) [id number] 6(Confirmed) Active 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, 27, 28 Active Restless legs syndrome (RLS)(Confirmed) Active Thrombocytopenia(Confirmed) 29, 30 06/22/09 Active Tricuspid insufficiency(Confirmed) Active Trochanteric bursitis of rig ht hip(Confirmed) Active Type 2 diabetes with nephropathy(Confirmed) Active Type 2 diabetes mellitus wit h peripheral angiopathy(Confirmed) Active Active 1educated about use epi pen /when call 2[employer] VAL[employer] [facility] [address] 41 graft 5CABG 2002 6Dr nini addressing 7nephrolithiasis 8to workup 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 12Zung=mod depression 13has seen infection control coordinator,[place] [facility] DIABETIC;risk diabetes 14urology addressing [id number] 16ortho 17chronic 18RFA 19djd xray 2-015 20xray [...] Dates Health Status Cl inical Service Informant Impacted ear wax Discharge Diagnosis 10/23/19 Vital Signs Most recent to oldest [Reference Range]: 1 Height 176.5 cm (10/23/19 3:57 PM) Weight 82.6 kg (10/23/19 3:57 PM) Oxygen Saturation [94-100 %] 97 % (10/23/19 3:57 PM) Pulse Rate [55-90 bpm] 56 bpm (10/23/19 3:57 PM) Body Mass Index [18.5-24.99] 26.51 *H* (10/23/19 3:57 PM) Blood Pressure [90-138/55-84 mm Hg] 122/ 84mm Hg (10/23/19 3:57 PM) Temperature [96.8-100.4 DegF] 97.8 DegF (10/23/19 3:57 PM) Blood pressure sites Arm, left (10/23/19 3:57 PM) Temperature Route Oral (10/23/19 3:57 PM) Social History Social History Type Response Smoking Status Former smoker, quit more than 30 days ago entered on: 03/01/19 Sex
--- OUTSIDE RECORDS SUMMARY | 2023-10-05 09:54 | XMS_ITS | Continuity of Care Document ---
Author Name Unknown Organization [facility] Tom lt Address [address] [place] [address]- Care Team Providers Care Deputy Chief Magistrate Name Role Phone Charisma LENZ, Michael Boston Primary Care Physician [place] [facility] [place](s): 08/12/21 - 09/11/21 [facility] Adult [address] [place] [address]- Attending Physician: Admtr, Ar8 Allergies, Adverse Reactions, [...] [facility]# [address] [phone] 2Location History: [place] 3Resconstance Comment: [06/30/2017] HIGH DOSE RECIEVED AT [facility] 4Rrenée Comment: [08/12/2015] [place] [facility] 5Result Comment: Pfizer right deltoid lot [id number] exp 06-06-2021 [facility] 6Admin Note: GIVEN IN CLINIC SHAM [...] 09/01/21 11:50:00 EDT, Route to Pharmacy Electronically, [facility], 175, cm, 08/12/21 15:35:00 EDT, Height, 84.1, kg, 06/07/21 4:26:00 EDT,... Start Date: 09/01/21 Status: Ordered amLODIPine 5 mg oral tablet See Instructions, 1/2 at night, # 45 each, Refills 1, Tot. Refills 1, Maintenance, 06/08/21 11:27:00 EDT, Instructions Replace Required Details, Route to Pharmacy Electronically, [facility]/pharmacy #[id number], 175, cm, 06/07/21 8:16:00 EDT, [...] 90 tablet, 1 Refills, 09/01/21 11:50:00 EDT, [facility], 175, cm, 08/12/21 15:35:00 EDT, Height, 84.1, kg, 06/07/21 4:26:00 EDT, Dry Weight Start Date: 09/01/21 Status: Ordered Eliquis 2.5 mg oral tablet 1 tablet, By Mouth, 2 times a day, # 180 tablet, 3 Refills, Maintenance, 03/17/21 11:43:00 EDT, [id number], 175, cm, 02/06/21 10:40:00 EDT, Height, 79, [...] bedtime, # 30 tablet, 0 Refills, Maintenance, 09/07/21 12:03:00EDT, [facility], 09/10/21, 175, cm, 08/12/21 15:35:00 EDT, Height, 84.1, kg, 06/07/21 4:26:00 EDT, Dry Weight Start Date: 09/07/21 Status: Ordered magnesium oxide 400 mg oral tablet 1 tablet = 400 mg, By Mouth, Daily, # 90 tablet, 3 Refills, Maintenance, 02/12/21 17:31:00 EDT, Tablet, [facility]/pharmacy #[id number], Partial fill upon patient request [...] 90 capsule, 0 Refills, 09/01/21 11:50:00 EDT, [facility], 175, cm, 08/12/21 15:35:00 EDT, Height, 84.1, kg, 06/07/21 4:26:00 EDT, Dry Weight Start Date: 09/01/21 Status: Ordered tamsulosin 0.4 mg oral capsule 1, capsule, By Mouth, Daily at bedtime, # 90 capsule, Refills 1, Tot. Refills 0, Maintenance, 05/08/21 14:24:00 EDT, Route to Pharmacy Electronically, [id number], 175, cm, 04/29/21 10:36:00 EDT,Height, 79, kg, 11/26/20 11:00:00 EST, Dry Weight Start Date: 05/08/21 Status: Ordered thiamine 100 mg oral tablet 100 mg, 1, tablet, By Mouth, Daily, # 30 tablet, Refills 11, Tot. Refills 11, Maintenance, 09/08/2013:24:00 EST, Route to Pharmacy Electronically, [facility]/pharmacy #[id number], 175, cm, 09/08/20 12:47:00 EST,Height, [...] Active Anxiety(Confirmed) Active Aortic valve prosthesis pres [id number] TAVR 2017(Confirmed) 2, 3 Active Arteriosclerotic heart [...] 25 Active PAF (paroxysmal atrial fibri llation) [id number] 6(Confirmed) Active 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, 27, 28 Active Restless legs syndrome (RLS)(Confirmed) Active Thrombocytopenia(Confirmed) 29, 30 06/22/09 Active Tricuspid insufficiency(Confirmed) Active Trochanteric bursitis of rig ht hip(Confirmed) Active Type 2 diabetes with nephropathy(Confirmed) Active Type 2 diabetes mellitus wit h peripheral angiopathy(Confirmed) Active 1educated about use epi pen /when call 2[employer] VALVE [facility] 19164 41 graft 5CABG 2002 6Dr nini addressing 7nephrolithiasis 8to workup 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 12giardiam,o/p ,culture neg 13normal IGA/TTG 14workup 15urology addressing [id number] 17ortho 18chronic 19RFA 20djd xray 2-015 21xray [...]
--- OUTSIDE RECORDS SUMMARY | 2023-10-05 09:54 | XMS_ITS | Continuity of Care Document ---
Author Name Unknown Organization [facility] Address [address] [place] [address]- Care Team Providers Care Client Service Manager Name Role Phone Michael Zafar MD Primary Care Physician [phone] Encounter [facility] [place] Date(s): 03/06/22 - 07/04/22 [facility] [address] [place] [address]- Attending Physician: Richard Abel MD Admitting Physician: [...] Vaccine Date Status Refusal Reason SARS-CoV-2 mRNA (cijvybu-qmht-inasu) vax 1 04/29/22 Given influenza virus vaccine, [...] Vaccine (oldterm) 11/07/98 Given 1Result Comment: [facility]-[id number] 2Result Comment: [facility]# ON [address] [phone] 3Location History: [place] 4Result Comment: [06/30/2017] HIGH DOSE RECIEVED AT [facility] 5Resconstance Comment: [08/12/2015] Received at [facility] [place] 6Result Comment: Pfizer right deltoid lot [id number] exp 06-06-2021 [facility] 7Admin Note: GIVEN IN CLINIC SHAM [...] 06/03/22 11:47:00 EDT, Route to Pharmacy Electronically, [facility], 175, cm, 06/03/22 11:28:00 EDT, Height, 84.1, kg, 06/07/21 4:26:00 EDT,... Start Date: 06/03/22 Status: Ordered amLODIPine 5 mg oral tablet 1 tablet, By Mouth, Daily, # 90 tablet, 1 Refills, [facility], 175, [...] 90 tablet, 1 Refills, 05/09/22 6:15:00 EDT, [facility], 175, cm, 04/29/22 [...] tablet, 0 Refills, Maintenance, 06/21/22 22:07:00 EDT, [facility], 175, cm,... Start Date: 06/21/22 Status: Ordered magnesium oxide 400 mg oral tablet 1 tablet, By Mouth, Daily, # 90 tablet, 1 Refills, [facility], 175, [...] Start Date: 05/05/22 Status: Ordered nystatin topical [id number] u/gm powder 1 application, Topically, 2 times [...] 90 capsule, 0 Refills, 05/13/22 12:10:00 EDT, [facility], 175, cm, 05/12/22 13:46:00 EDT, Height, 84.1, kg, 06/07/21 4:26:00 EDT, Dry Weight Start Date: 05/13/22 Status: Ordered sertraline 50 mg oral tablet 1 tablet = 50 mg, By Mouth, Daily, # 90 tablet, 1 Refills, Maintenance, 06/10/22 17:09:00 EDT, Tablet, [facility], Partial fill upon patient request if the prescription is for a schedule II opioid drug., 175, cm, 06/04/22 11:38:00... Start Date: 06/10/22 Status: Ordered tamsulosin 0.4 mg oral capsule 1, capsule, By Mouth, Daily at bedtime, # 90 capsule, Refills 1, Tot. Refills 1, 05/13/22 12:10:00 EDT, Route to Pharmacy Electronically, [facility], 175, cm, 05/12/22 13:46:00 EDT, Height, 84.1, kg, 06/07/21 4:26:00 EDT, Dry Weight Start Date: 05/13/22 Status: Ordered thiamine 100 mg oral tablet 100 mg, 1, tablet, By Mouth, Daily, # 30 tablet, Refills 11, Tot. 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 12giardiam,o/p ,culture neg 13normal IGA/TTG 14workup 15urology addressing [id number] 17ortho 18chronic 19RFA 20djd xray 2-015 21xray [...] Personnel Name: Charisma LENZ, Michael Boston Address: [address] [place] [address] [place] [address]-
--- OUTSIDE RECORDS SUMMARY | 2023-10-05 09:54 | XMS_ITS | Continuity of Care Document ---
Author Name Unknown Organization [facility] Tom [facility] Address [address] [place] [address]- Care Team Providers Care Registered Dietitian Name Role Phone Charisma LENZ, Michael Boston Primary Care Physician Encounter [facility] [place] Date(s): 07/22/22 - 08/21/22 [facility] Adult [address] [place] [address]- Attending Physician: Admtr, Ar8 Allergies, Adverse Reactions, Alerts Substance Reaction Severity Status lisinopril 1, 2 Active gabapentin unknown Active Welchol muscle and joint aches Activ e carvedilol 3 Active citalopram dizzy Active Percocet vomiting Active Effexor dizziness Active Remeron 4 dizziness Active Bee Stings Active Lactose 5, 6 diarrhea Active FLUoxetine [...] Vaccine Date Status Refusal Reason SARS-CoV-2 mRNA (xaabpdx-hhno-exjwc) vax 1 04/29/22 Given influenza virus vaccine, [...] Given 1Result Comment: [facility]-[id number] 2Result Comment: [facility]# ON [address] [phone] 3Location History: [place] 4Resconstance Comment: [06/30/2017] HIGH DOSE RECIEVED AT [facility] 5Resconstance Comment: [08/12/2015] Received at [facility] 6Result Comment: Pfizer right deltoid lot [id number] exp 06-06-2021 [facility] 7Admin [...] 06/03/22 11:47:00 EDT, Route to Pharmacy Electronically, [facility], 175, cm, 06/03/22 11:28:00 EDT, Height, 84.1, kg, 06/07/21 4:26:00 EDT,... Start Date: 06/03/22 Status: Ordered amLODIPine 5 mg oral tablet 1 tablet, By Mouth, Daily, # 90 tablet, 1 Refills, Maintenance, 08/07/22 10:52:00 EDT, [facility], 175, cm, 07/22/22 14:43:00 EDT, Height, [...] 90 tablet, 1 Refills, 05/09/22 6:15:00 EDT, [facility], 175, cm, 04/29/22 10:58:00 EDT, Height, 84.1, kg, 06/07/21 4:26:00 EDT, Dry Weight Start Date: 05/09/22 Status: Ordered Eliquis 2.5 mg oral tablet 1 tablet, By Mouth, 2 times a day, # 180 tablet, 9 Refills, [facility], 175, cm, 02/09/22 10:10:00 EDT, Height, 84.1, kg, 06/07/21 4:26:00 EDT, Dry Weight Start Date: 02/10/22 Status: Ordered LORazepam 1 mg oral tablet 1 tablet = 1 mg, By Mouth, Daily at bedtime, to refill on due date, 08/10 for refill., # 30 tablet, 0 Refills, Maintenance, 08/03/22 19:10:00 EDT, [facility], 175, cm, 07/22/22 14:43:00 EDT, Height, 84.1, kg, 06/07/21 4:26:00 EDT,... Start Date: 08/03/22 Status: Ordered magnesium oxide 400 mg oral tablet 1 tablet, By Mouth, Daily, # 90 tablet, 1 Refills, Maintenance, 08/09/22 9:27:00 EDT, [facility], 175, cm, 07/22/22 14:43:00 EDT, Height, 84.1, kg, 06/07/21 4:26:00 EDT, Dry Weight Start Date: 08/09/22 Status: Ordered magnesium oxide 400 mg oral tablet 1 tablet, By Mouth, Daily, # 90 tablet, 11 Refills, Maintenance, 08/09/22 9:27:00 EDT, [facility], 175, cm, 07/22/22 14:43:00 EDT, Height, [...] Start Date: 05/05/22 Status: Ordered nystatin topical 661534 u/gm powder 1 application, Topically, 2 times a day, # 60 Gm, 5 Refills, Maintenance, 01/14/22 10:20:00 EST, Powder, [facility], Partial fill upon patient request if the prescription is for a schedule II opioid drug., 1 application Topically... Start Date: 01/14/22 Status: Ordered omeprazole 20 mg oral enteric coated capsule 1 capsule, By Mouth, Daily, # 90 capsule, 0 Refills, Maintenance, 08/07/22 10:53:00 EDT, [facility], 175, cm, 07/22/22 14:43:00 EDT, Height, 84.1, kg, 06/07/21 4:26:00 EDT, Dry Weight Start Date: 08/07/22 Status: Ordered sertraline 50 mg oral tablet 1 tablet = 50 mg, By Mouth, Daily, # 90 tablet, 1 Refills, Maintenance, 06/10/22 17:09:00 EDT, Tablet, [facility], Partial fill upon patient request if the prescription is for a schedule II opioid drug., 175, cm, 06/04/22 11:38:00... Start Date: 06/10/22 Status: Ordered tamsulosin 0.4 mg oral capsule 1, capsule, By Mouth, Daily at bedtime, # 90 capsule, Refills 1, Tot. Refills 1, 05/13/22 12:10:00 EDT, Route to Pharmacy Electronically, [facility], 175, cm, 05/12/22 13:46:00 EDT, Height, [...] 08/09/22 9:27:00 EDT, Route to Pharmacy Electronically, [facility], 175, cm, 07/22/22 14:43:00 EDT, Height, 84.1, kg, 06/07/21 4:26:00 EDT, Dry Weight Start Date: 08/09/22 Status: Ordered Vitamin B1 100 mg oral tablet 1, tablet, By Mouth, Daily, # 30 tablet, Refills 11, Maintenance, 08/09/22 9:27:00 EDT, Route to Pharmacy Electronically, [facility], 175, cm, 07/22/22 14:43:00 EDT, Height, [...] Active Anxiety Confirmed Active Aortic valve prosthesis [id number] TAVR 2017 2, 3 Confirmed Active Arteriosclerotic [...] Confirmed 07/22/22 Active PAF (paroxysmal atrial fibrillation) [id number] 6 Confirmed Active Pituitary microadenoma 26, 27, [...] call 2[employer] VALVE [facility] [address] 41 graft 5CABG 2002 6Dr nini addressing 7nephrolithiasis 8to workup 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 12giardiam,o/p ,culture neg 13normal IGA/TTG 14workup 15urology addressing [id number] 17ortho 18chronic 19RFA 20djd xray 2-015 21xray [...] team information Personnel Name: Charisma LENZ, Michael Bosotn Address: Address: [address] [place] [id number]
--- OUTSIDE RECORDS SUMMARY | 2023-10-05 09:54 | XMS_ITS | Continuity of Care Document ---
Author Name Unknown Organization [facility] Tom [place] Address [address] [place] [address]- Care Team Providers Care Hydraulic Dredge Operator Name Role Phone Charisma LENZ, Michael Boston Primary Care Physician Encounter [facility] Date(s): 10/21/21 - 11/20/21 [facility] Adult [address] [place] [address]- Allergies, Adverse Reactions, Alerts Substance Reaction Severity [...] 1Result Comment: [facility]# [address] [phone] 2Location History: [place] 3Result Comment: [06/30/2017] HIGH DOSE RECIEVED AT [facility] 4Rrenée Comment: [08/12/2015] Received at [facility] 5Result Comment: Pfizer right deltoid lot [id number] exp 06-06-2021 [facility] 6Admin Note: GIVEN [...] Required Details, Route to Pharmacy Electronically, [facility]/pharmacy #[id number], 175, cm, 06/07/21 8:16:00 EDT, [...] 3 Refills, Maintenance, 03/17/21 11:43:00 EDT, [id number], 175, cm, 02/06/21 10:40:00 EDT, Height, 79, [...] Required Details, Route to Pharmacy Electronically, [facility]/... Start Date: 12/17/19 Status: Ordered LIDODERM [...] 30 tablet, 0 Refills, Maintenance, 10/05/21 16:08:00EST, [facility], 175, cm, [...] 90 capsule, 0 Refills, 09/01/21 11:50:00 EDT, [facility], 175, cm, 08/12/21 15:35:00 EDT, Height, 84.1, kg, 06/07/21 4:26:00 EDT, Dry Weight Start Date: 09/01/21 Status: Ordered predniSONE 50 mg oral tablet 1 tablet = 50 mg, By Mouth, Daily, in am with food, # 3 tablet, 0 Refills, Maintenance, 10/12/21 15:26:00 EST, Tablet, [facility]/pharmacy #[id number], Partial fill upon patient request if the prescription is fora schedule II opioid drug., 175, cm, 10/12/21 14:45... Start Date: 10/12/21 Status: Ordered tamsulosin 0.4 mg oral capsule 1, capsule, By Mouth, Daily at bedtime, # 90 capsule, Refills 1, Tot. Refills 0, Maintenance, 05/08/21 14:24:00 EDT, Route to Pharmacy Electronically, [id number], 175, cm, 04/29/21 10:36:00 EDT,Height, 79, kg, [...] Active Anxiety(Confirmed) Active Aortic valve prosthesis pres [id number] TAVR 2017(Confirmed) 2, 3 Active Arteriosclerotic heart [...] 25 Active PAF (paroxysmal atrial fibri llation) [id number] 6(Confirmed) Active 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, 27, 28 Active Restless legs syndrome (RLS)(Confirmed) Active Thrombocytopenia(Confirmed) 29, 30 06/22/09 Active Tricuspid insufficiency(Confirmed) Active Trochanteric bursitis of rig ht hip(Confirmed) Active Type 2 diabetes with nephropathy(Confirmed) Active Type 2 diabetes mellitus wit h peripheral angiopathy(Confirmed) Active 1educated about use epi pen /when call [place] [address] 41 graft 5CABG 2002 6Dr nini addressing 7nephrolithiasis 8to workup 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 12giardiam,o/p ,culture neg 13normal IGA/TTG 14workup 15urology addressing [id number] 17ortho 18chronic 19RFA 20djd xray 2-015 21xray [...]
--- OUTSIDE RECORDS SUMMARY | 2023-10-05 09:54 | XMS_ITS | Continuity of Care Document ---
Author Name Unknown Organization [facility] Tom [place] Address [address] [place] [address]- Care Team Providers Care Apn Name Role Phone Ju ASSOCIATE MEDIA DIRECTOR, Giovana Chiu Primary Care Physician Encounter [facility] Date(s): 02/15/23 - 03/17/23 [facility] Adult [address] [place] [address]- Allergies, Adverse Reactions, Alerts Substance Reaction Severity Status lisinopril 1, 2 Active Effexor dizziness Active Remeron 3 dizziness Active Bee Stings Active carvedilol 4 Active citalopram dizzy Active [...] vaccine, inactivated 11/27/10 Give n SARS-CoV-2 mRNA ([id number]) vax 6 04/29/22 Given SARS-CoV-2 (COVID-19) mRNA [...] Pneumococcal Vaccine (oldterm) 11/07/98 Given 1Result Comment: [id number] 2Result Comment: [facility]# [address] [phone] 3Location History: [place] 4Result Comment: [06/30/2017] HIGH DOSE RECIEVED AT [facility] 5Result Comment: [08/12/2015] Received at [facility] 6Result Comment: [facility]-[id number] 7Result Comment: Pfizer right deltoid lot [id number] exp 06-06-2021 [facility] 8Admin Note: GIVEN IN [...] 09/05/22 12:57:00 EDT, Route to Pharmacy Electronically, [facility], 175, cm, 07/22/22 14:43:00 EDT, Height, 84.1, kg, 06/07/21 4:26:00 EDT, Dry Weight Start Date: 09/05/22 Status: Ordered amLODIPine 5 mg oral tablet 1 tablet, By Mouth, Daily, # 90 tablet, 1 Refills, Maintenance, 08/07/22 10:52:00 EDT, [facility], 175, cm, 07/22/22 14:43:00 EDT, [...] 90 tablet, 1 Refills, 11/24/22 14:41:00 EST, [facility], 175, cm, 09/29/22 12:43:00 EST, Height, 84.1, kg, 06/07/21 4:26:00 EDT, Dry Weight Start Date: 11/24/22 Status: Ordered Eliquis 2.5 mg oral tablet 1 tablet, By Mouth, 2 times a day, # 180 tablet, 9 Refills, 02/18/23 17:26:00 EDT, [facility], 175, cm, 01/24/23 11:05:00 EDT, Height, 84.1, kg, 06/07/21 4:26:00 EDT, Dry Weight Start Date: 02/18/23 Status: Ordered furosemide 20 mg oral tablet 20 mg, 1, tablet, By Mouth, Daily, for 30 days, # 30 tablet, Refills 0, Tot. Refills 0, Acute 04/15/23 12:48:00 EDT, 03/16/23 12:48:00 EDT, Route to Pharmacy Electronically, [facility]/pharmacy #[id number], =, 175, cm, 03/16/23 12:17:00 EDT, Height, 84.1, kg, 08/0... Start Date: 03/16/23 Stop Date: 04/15/23 Status: Ordered LORazepam 1 mg oral tablet 1 tablet = 1 mg, By Mouth, Daily at bedtime, 11/09 - 03/08/2312/10 - 04/07/2301/07 delivery Sunday 05/06, start taking 05/07/23, # 30 tablet, 2 Refills, Maintenance, 02/18/23 10:24:00 EDT, [facility], 175, cm, 01/24/23 11:05:00 EDT,... Start Date: 02/18/23 Status: Ordered magnesium oxide 400 mg oral tablet 1 tablet, By Mouth, Daily, # 90 tablet, 11 Refills, Maintenance, 08/09/22 9:27:00 EDT, [facility], 175, cm, 07/22/22 14:43:00 EDT, Height, 84.1, kg, 06/07/21 4:26:00 EDT, Dry Weight Start Date: 08/09/22 Status: Ordered Melatonin Daily at bedtime, 0 Refills, Maintenance, 01/24/23 11:27:00 EDT Start Date: 01/24/23 Status: Ordered nystatin topical [id number] u/gm powder 1 application, Topically, 2 times a day, # 60 Gm, 5 Refills, Maintenance, 01/14/22 10:20:00 EST, Powder, [facility], Partial fill upon patient request if the prescription is for a schedule II opioid drug., 1 application Topically... Start Date: 01/14/22 Status: Ordered omeprazole 20 mg oral enteric coated capsule 1 capsule, By Mouth, Daily, # 90 capsule, 0 Refills, Maintenance, 03/08/23 9:16:00 EDT, [facility], 175, cm, 01/24/23 11:05:00 EDT, Height, 84.1, kg, 06/07/21 4:26:00 EDT, Dry Weight Start Date: 03/08/23 Status: Ordered tamsulosin 0.4 mg oral capsule 1, capsule, By Mouth, Daily at bedtime, # 90 capsule, Refills 1, Tot. Refills 1, 11/24/22 14:41:00 EST, Route to Pharmacy Electronically, [facility], 175, cm, 09/29/22 12:43:00 EST, Height, 84.1, kg, 06/07/21 4:26:00 EDT, Dry Weight Start Date: 11/24/22 Status: Ordered Vitamin B1 100 mg oral tablet 1, tablet, By Mouth, Daily, # 30 tablet, Refills 11, Maintenance, 08/09/22 9:27:00 EDT, Route to Pharmacy Electronically, [facility], 175, cm, 07/22/22 14:43:00 EDT, [...] Active Anxiety Confirmed Active Aortic valve prosthesis [id number] TAVR 2017 2, 3 Confirmed Active Arteriosclerotic [...] left parotid gland 1.[address] 2020 Confirmed 11/02/21 Active Mild mitral insufficiency Confirmed Active Nephrolithiasis Confirmed Active Knee osteoarthritis 24 Confirmed Active Wrist pain, chronic 25 Confirmed Active Breast pain, left refer breast center Confirmed 07/22/22 Active PAF (paroxysmal atrial fibrillation) [id number] 6 Confirmed Active Pituitary microadenoma 26, 27, [...] epi pen /when call 2CAR[employer]ENTIER PERICARDIAL VALVE [facility] [address] 41 graft 5CABG 2002 6Dr nini addressing 7nephrolithiasis 8to workup 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 12giardiam,o/p ,culture neg 13normal IGA/TTG 14workup 15urology addressing [id number] 17ortho 18chronic 19RFA 20djd xray 2-015 21xray [...] Team Personnel Name: Giovana Dodd NP Position: [facility] PCO Associate Professional Member Role: PCP Address: Address: [address] [place] [address]- [place] Name: Adam Dennis MD Position: [facility] Cardiology MD Member Role: Lifetime Consulting Physician Address: Address: [address] [place] [address] [address] [place] [address]- [place] Name: Julia Yu RN Position: S RN Member Role: Primary Care Nurse Name: Jo Dillon RN Position: [facility] RN Member Role: Primary [...] Persons Name: SARWAT HENRIQUEZ Address: home [address] [place] [address] Name: JOSEFINA CONTRERAS Address: home [address] [place] [address]
--- OUTSIDE RECORDS SUMMARY | 2023-10-05 09:55 | XMS_ITS | Continuity of Care Document ---
Author Name Unknown Organization [facility] ter Address [address] [place] [address]- Care Team Providers Care Construction Economist Name Role Phone Michael Zafar MD Primary Care Physician [phone] Encounter [facility] Date(s): 11/05/19 - 11/05/[address] [address]- [facility] Attending Physician: Michael Zafar MD Allergies, Adverse [...] 3Rrenée Comment: [06/30/2017] HIGH DOSE RECIEVED AT [facility] 4Rrenée Comment: [08/12/2015] Received at [facility] 5Admin Note: given in clinic [...] Gm, 0 Refills, Maintenance, 10/10/19 11:35:05 EST, [place], 1 sprays Nares, Both 2 times a [...] 3 Refills, Maintenance, Tablet, Route toPharmacy Electronically, [id number], [id number], Rx resent from 11/03/16. [...] 11/05/19 12:58:00 EST, Route to Pharmacy Electronically, [facility]/pharmacy #[id number], 176.5, cm, 10/23/19 15:57:00 EST, Height, [...] 12/28/18 10:45:55 EST, Route to Pharmacy Electronically, [id number] Start Date: 12/28/18 Status: Ordered Tums 500 [...] Active Anxiety(Confirmed) Active Aortic valve prosthesis pres [id number] TAVR 2017(Confirmed) 2, 3 Active Arteriosclerotic heart [...] 25 Active PAF (paroxysmal atrial fibri llation) [id number] 6(Confirmed) Active 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, 27, 28 Active Restless legs syndrome (RLS)(Confirmed) Active Thrombocytopenia(Confirmed) 29, 30 06/22/09 Active Tricuspid insufficiency(Confirmed) Active Trochanteric bursitis of rig ht hip(Confirmed) Active Type 2 diabetes with nephropathy(Confirmed) Active Type 2 diabetes mellitus wit h peripheral angiopathy(Confirmed) Active Active 1educated about use epi pen /when call 2CARPENTIER PERICARDIAL VALVE [facility] [address] 41 graft 5CABG 2002 6Dr nini addressing 7nephrolithiasis 8to workup 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 12Zung=mod depression 13has seen kiln packer,aware RE DIABETIC;risk diabetes 14urology addressing [id number] 16ortho 17chronic 18RFA 19djd xray 2-015 20xray [...]
--- OUTSIDE RECORDS SUMMARY | 2023-10-05 09:55 | XMS_ITS | Continuity of Care Document ---
Author Name Unknown Organization [facility] Tom [place] Address [address] [place] [address]- Care Team Providers Care Tetryl Wringer Operator Name Role Phone Michael Zafar MD Primary Care Physician [phone] Encounter [facility] Date(s): 06/22/21 - 06/29/21 [facility] Adult [address] [place] [address]- Encounter Diagnosis Chronic gout(Discharge Diagnosis) - 06/22/21 Attending Physician: Michael Zafar MD Allergies, Adverse [...] Given 1Result Comment: Pfizer right deltoid lot [id number] exp 06-06-2021 [facility] 2Location History: [place] 3Rrenée Comment: [06/30/2017] [facility] 4Rrenée Comment: [08/12/2015] Received at [facility] [place] 5Admin Note: GIVEN IN [facility] 6Admin [...] 10:33:00 EDT, Route to Pharmacy Electronically, [facility]/pharmacy #[id number], 175, cm, 03/20/21 12:09:00 EDT, [...] 3 Refills, Maintenance, 03/17/21 11:43:00 EDT, [id number], 175, cm, 02/06/21 10:40:00 EDT, Height, 79, [...] bedtime, # 30 tablet, 0 Refills, Maintenance, 06/08/21 11:59:00EDT, [facility]/pharmacy #[id number], 175, cm, 06/07/21 8:16:00 EDT, Height, 84.1, kg, 06/07/21 4:26:00 EDT, DryWeight Start Date: 06/08/21 Status: Ordered magnesium oxide 400 mg oral [...] capsule, 0 Refills, Maintenance, 05/11/21 7:24:00 EDT, [facility]/pharmacy #[id number], Rx resent from 05/08/21., 175, cm, 04/29/21 10:36:00 EDT, Height, 79, kg, 11/26/20 11:00:00 EST, Dry Weight Start Date: 05/11/21 Status: Ordered tamsulosin 0.4 mg oral capsule 1, capsule, By Mouth, Daily at bedtime, # 90 capsule, Refills 1, Tot. Refills 0, Maintenance, 05/08/21 14:24:00 EDT, Route to Pharmacy Electronically, [id number], 175, cm, 04/29/21 10:36:00 EDT,Height, 79, kg, 11/26/20 11:00:00 EST, Dry Weight Start Date: 05/08/21 Status: Ordered thiamine 100 mg oral tablet 100 mg, 1, tablet, By Mouth, Daily, # 30 tablet, Refills 11, Tot. 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, 27, 28 Active Restless legs syndrome (RLS)(Confirmed) Active Thrombocytopenia(Confirmed) 29, 30 06/22/09 Active Tricuspid insufficiency(Confirmed) Active Trochanteric bursitis of rig ht hip(Confirmed) Active Type 2 diabetes with nephropathy(Confirmed) Active Type 2 diabetes mellitus wit h peripheral angiopathy(Confirmed) Active 1educated about use epi pen /when call 2CARPENTIER PERICARDIAL VALVE [facility] [address] 41 graft 5CABG 2002 6Dr nini addressing 7nephrolithiasis 8to workup 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 12giardiam,o/p ,culture neg 13normal IGA/TTG 14workup 15urology addressing [id number] 17ortho 18chronic 19RFA 20djd xray 2-015 21xray 2004 LS arthritis etc 22BCG 23carcinoma in situ 24saw ortho 25s aw ortho;injected SEVERE pain 26endocrinology addressing 27MRI pti ;refer endo 28mri c spine 2014 29per hematology ? 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
--- OUTSIDE RECORDS SUMMARY | 2023-10-05 09:55 | XMS_ITS | Continuity of Care Document ---
Author Name Unknown Organization [facility] Address [address] [place] [address]- Care Team Providers Care Job Press Feeder Name Role Phone Michael Zafar MD Primary Care Physician [phone] Encounter [facility] Date(s): 11/14/19 - 03/13/20 [facility] [address] [place] [address]- [facility] Attending Physician: Konstantin BROWN, Sussy Mercado Admitting [...] 3Rrenée Comment: [06/30/2017] HIGH DOSE RECIEVED AT [facility] DR Kaplan Comment: [08/12/2015] Received at [facility] 5Admin Note: given in clinic 6Admin Note: [...] Gm, 0 Refills, Maintenance, 10/10/19 11:35:05 EST, [place], 1 sprays Nares, Both 2 times a [...] tablet, 0 Refills, Maintenance, 03/05/20 13:50:00 EDT, [facility]/pharmacy #[id number], 176.5, cm, 12/25/19 15:48:00 EST, Height, 83.4, kg, 11/02/18 13:42:00 EST, Dry Weight Start Date: 03/05/20 Status: Ordered metoprolol 25 mg oral tablet 25 mg, 1, tablet, By Mouth, Daily, tartrate, # 90 tablet, Refills 3, Tot. Refills 3, Maintenance, 02/06/20 14:47:00 EDT, Route to Pharmacy Electronically, [facility]/pharmacy #[id number], tartrate, 176.5, cm, 12/25/19 15:48:00 EST, Height, 83.4, kg, 11/02/18 13:42... Start Date: 02/06/20 Status: Ordered metoprolol 25 mg oral tablet 25 mg, 1, tablet, By Mouth, Daily, for 90 days, # 90 tablet, Refills 3, Tot. 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) 2, 3 Active Arteriosclerotic heart [...] 23 Active PAF (paroxysmal atrial fibri llation) [id number] 6(Confirmed) Active Pituitary microadenoma(Confi rmed) 24, 25, 26 Active Restless legs syndrome (RLS)(Confirmed) Active Thrombocytopenia(Confirmed) 27, 28 06/22/09 Active Tricuspid insufficiency(Confirmed) Active Trochanteric bursitis of rig ht hip(Confirmed) Active Type 2 diabetes with nephropathy(Confirmed) Active Type 2 diabetes mellitus wit h peripheral angiopathy(Confirmed) Active 1educated about use epi pen /when call 2CARPENTIER PERICARDIAL VALVE [facility] [address] 41 graft 5CABG 2002 6Dr nini addressing 7nephrolithiasis 8to workup 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 12urology addressing [id number] 14ortho 15chronic 16RFA 17djd xray 2-015 18xray [...]
--- OUTSIDE RECORDS SUMMARY | 2023-10-05 09:55 | XMS_ITS | Continuity of Care Document ---
Author Name Unknown Organization [facility] Tom lt Address [address] [place] [address]- Care Team Providers Care Nursery Laborer Name Role Phone Charisma LENZ, Michael Boston Primary Care Physician Encounter [facility] Date(s): 06/11/20 - 07/11/20 [facility] Adult [address] [place] [address]- [facility] Allergies, Adverse Reactions, Alerts Substance Reaction Severity [...] [06/30/2017] HIGH DOSE RECIEVED AT [facility] 4Rrenée Comment: [08/12/2015] Received at [facility] 5Admin Note: given in clinic 6Admin Note: [...] 2 times a day, # 6 LOT [id number] EXP 2, # 180 tablet, 0 Refills, Maintenance, 06/13/20 11:45:00 EDT, Dry Weight Start Date: 06/13/20 Status: Ordered apixaban 2.5 mg oral tablet 1 tablet = 2.5 mg, By Mouth, 2 times a day, # 180 tablet, 3 Refills, Maintenance, 03/05/20 13:50:00EDT, [facility]/pharmacy #[id number], 176.5, cm, 12/25/19 [...] Gm, 0 Refills, Maintenance, 10/10/19 11:35:05 EST, [place], 1 sprays Nares, Both 2 times a [...] Replace Required Details, Route to Pharmacy Electronically, [facility]/... Start Date: 12/17/19 Status: Ordered LIDODERM PATCH LIDODERM PATCH, See Instructions, # 14 patch, Refills 0, Tot. Refills 0, Maintenance, PUT 1 PATCH [facility] AREA PAIN;[facility] BACK PUT ON BEDTIME.REMOVE 12 HIOURS LATER, 09/14/19 11:53:13 EST, Compound Start Date: 09/14/19 Status: Ordered Lipitor 40 mg oral tablet 1 tablet = 40 mg, By Mouth, Daily at bedtime, # 90 tablet, 3 Refills, Maintenance, 12/17/19 11:48:00 EST, Tablet, [facility]/pharmacy #[id number], Rx resent from 11/03/16., 176.5, cm, 12/17/19 11:35:00 EST, Height, 83.4, kg, 11/02/18 13:42:00 EST, Dry Weight Start Date: 12/17/19 Status: Ordered LORazepam 2 mg oral tablet 1 tablet = 2 mg, By Mouth, 2 times a day, # 60 tablet, 0 Refills, Maintenance, 06/16/20 13:49:00 EDT, [id number], 176.5, cm, 06/13/20 12:04:00 EDT, Height, 83.4, kg, 11/02/18 13:42:00 EST, Dry Weight Start Date: 06/16/20 Status: Ordered magnesium oxide 400 mg oral tablet 1 tablet = 400 mg, By Mouth, 2 times a day, # 60 tablet, 3 Refills, Maintenance, 06/16/20 11:54:00 EDT, [facility]/pharmacy #[id number], 176.5, cm, 06/13/20 12:04:00 EDT, Height, 83.4, kg, 11/02/18 13:42:00 EST, Dry Weight Start Date: 06/16/20 Status: Ordered metoprolol 25 mg oral tablet, extended release 25 mg, 1, tablet, By Mouth, Daily, # 90 tablet, Refills 3, Tot. Refills 3, Maintenance, 06/16/20 9:41:00 EDT, Route to Pharmacy Electronically, [facility]/pharmacy #[id number], succinate, 176.5, cm, 06/13/20 12:04:00 EDT, Height, 83.4, kg, 11/02/18 13:42:00 EST, D... Start Date: 06/16/20 Stop Date: 06/11/21 Status: Ordered omeprazole 20 mg oral delayed release tablet 1 tablet = 20 mg, By Mouth, Daily, # 90 tablet, 3 Refills, Maintenance, 12/17/19 11:48:00 EST, EC Tablet, [facility]/pharmacy #0315, 176.5, cm, 12/17/19 11:35:00 EST, Height, 83.4, kg, 11/02/18 13:42:00 EST, Dry Weight Start Date: 12/17/19 Status: Ordered tamsulosin 0.4 mg oral capsule 0.4 mg, By Mouth, Daily at bedtime, # 90 capsule, Refills 3, Tot. Refills 3, Maintenance, 12/17/19 11:48:00 EST, [id number] 176.5, cm, 12/17/19 11:35:00 EST, [...] Active Anxiety(Confirmed) Active Aortic valve prosthesis pres [id number] TAVR 2017(Confirmed) 2, 3 Active Arteriosclerotic heart [...] 26 Active PAF (paroxysmal atrial fibri llation) [id number] 6(Confirmed) Active Pituitary microadenoma(Confi rmed) 27, 28, 29 Active Restless legs syndrome (RLS)(Confirmed) Active Thrombocytopenia(Confirmed) 30, 31 06/22/09 Active Tricuspid insufficiency(Confirmed) Active Trochanteric bursitis of rig ht hip(Confirmed) Active Type 2 diabetes with nephropathy(Confirmed) Active Type 2 diabetes mellitus wit h peripheral angiopathy(Confirmed) Active 1educated about use epi pen /when call 2CARPENTIER PERICARDIAL VALVE [facility] [address] 41 graft 5CABG 2002 6Dr nini addressing 7nephrolithiasis 8to workup 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 12giardiam,o/p ,culture neg 13normal IGA/TTG 14workup 15urology addressing [id number] 17ortho 18chronic 19RFA 20djd xray 2-015 21xray [...]
--- OUTSIDE RECORDS SUMMARY | 2023-10-05 09:55 | XMS_ITS | Continuity of Care Document ---
Author Name Unknown Organization [facility] Address [address] [place] [address]- Care Team Providers Care Floral Manager Name Role Phone Giovana Dodd NP Primary Care Physician Encounter [facility] [place] Date(s): 12/07/22 - 04/06/23 [facility] [address] [place] [address]- Attending Physician: Jeremiah Dugan MD Admitting Physician: Jeremiah Dugan MD Referring Physician: Giovana Dodd NP Allergies, Adverse Reactions, Alerts Substance Reaction Severity [...] vaccine, inactivated 11/27/10 Give n SARS-CoV-2 mRNA (oetzqwl-ssoe-yglfz) vax 6 6/23/22 Given SARS-CoV-2 (COVID-19) mRNA BNT-162b2 vac 7 [...] Pneumococcal Vaccine (oldterm) 11/07/98 Given 1Result Comment: [id number] 2Result Comment: [facility]# [address] [phone] 3Location History: [place] 4Result Comment: [06/30/2017] HIGH DOSE RECIEVED AT [facility] 5Result Comment: [08/12/2015] Received at [facility] [place] [place] 6Result Comment: [facility]-[id number] 7Result Comment: Pfizer right deltoid lot [id number] exp 06-06-2021 [facility] 8Admin Note: GIVEN IN CLINIC SHAM 9Admin [...] 09/05/22 12:57:00 EDT, Route to Pharmacy Electronically, [facility], 175, cm, 07/22/22 14:43:00 EDT, Height, 84.1, kg, 06/07/21 4:26:00 EDT, Dry Weight Start Date: 09/05/22 Status: Ordered amLODIPine 5 mg oral tablet 1 tablet, By Mouth, Daily, # 90 tablet, 1 Refills, Maintenance, 08/07/22 10:52:00 EDT, [facility], 175, cm, 07/22/22 [...] 90 tablet, 1 Refills, 11/24/22 14:41:00 EST, [facility], 175, cm, 09/29/22 12:43:00 EST, Height, 84.1, kg, 06/07/21 4:26:00 EDT, Dry Weight Start Date: 11/24/22 Status: Ordered Eliquis 2.5 mg oral tablet 1 tablet, By Mouth, 2 times a day, # 180 tablet, 9 Refills, 02/18/23 17:26:00 EDT, [facility], 175, cm, 01/24/23 11:05:00 EDT, Height, 84.1, kg, 06/07/21 4:26:00 EDT, Dry Weight Start Date: 02/18/23 Status: Ordered furosemide 20 mg oral tablet 20 mg, 1, tablet, By Mouth, Daily, for 30 days, # 30 tablet, Refills 0, Tot. Refills 0, Acute 04/15/23 12:48:00 EDT, 03/16/23 12:48:00 EDT, Route to Pharmacy Electronically, [facility]/pharmacy #[id number], =, 175, cm, 03/16/23 12:17:00 EDT, Height, 84.1, kg, 08/0... Start Date: 03/16/23 Stop Date: 04/15/23 Status: Ordered LORazepam 1 mg oral tablet 1 tablet = 1 mg, By Mouth, Daily at bedtime, 11/09 - 03/08/2312/10 - 04/07/2301/07 delivery Sunday 05/06, start taking 05/07/23, # 30 tablet, 2 Refills, Maintenance, 02/18/23 10:24:00 EDT, [facility], 175, cm, 01/24/23 11:05:00 EDT,... Start Date: 02/18/23 Status: Ordered magnesium oxide 400 mg oral tablet 1 tablet, By Mouth, Daily, # 90 tablet, 11 Refills, Maintenance, 08/09/22 9:27:00 EDT, [facility], 175, cm, 07/22/22 14:43:00 EDT, Height, 84.1, kg, 06/07/21 4:26:00 EDT, Dry Weight Start Date: 08/09/22 Status: Ordered Melatonin Daily at bedtime, 0 Refills, Maintenance, 01/24/23 11:27:00 EDT Start Date: 01/24/23 Status: Ordered nystatin topical 773404 u/gm powder 1 application, Topically, 2 times a day, # 60 Gm, 5 Refills, Maintenance, 01/14/22 10:20:00 EST, Powder, [facility], Partial fill upon patient request if the prescription is for a schedule II opioid drug., 1 application Topically... Start Date: 01/14/22 Status: Ordered omeprazole 20 mg oral enteric coated capsule 1 capsule, By Mouth, Daily, # 90 capsule, 0 Refills, Maintenance, 03/08/23 9:16:00 EDT, [facility], 175, cm, 01/24/23 11:05:00 EDT, Height, 84.1, kg, 06/07/21 4:26:00 EDT, Dry Weight Start Date: 03/08/23 Status: Ordered tamsulosin 0.4 mg oral capsule 1, capsule, By Mouth, Daily at bedtime, # 90 capsule, Refills 1, Tot. Refills 1, 11/24/22 14:41:00 EST, Route to Pharmacy Electronically, [facility], 175, cm, 09/29/22 12:43:00 EST, Height, 84.1, kg, 06/07/21 4:26:00 EDT, Dry Weight Start Date: 11/24/22 Status: Ordered Vitamin B1 100 mg oral tablet 1, tablet, By Mouth, Daily, # 30 tablet, Refills 11, Maintenance, 08/09/22 9:27:00 EDT, Route to Pharmacy Electronically, [facility], 175, cm, 07/22/22 [...] Active Anxiety Confirmed Active Aortic valve prosthesis [id number] TAVR 2017 1, 2 Confirmed Active Arteriosclerotic [...] Confirmed 07/22/22 Active PAF (paroxysmal atrial fibrillation) [id number] 6 Confirmed Active Pituitary microadenoma 22, 23, 24 Confirmed Active Restless legs syndrome (RLS) Confirmed Active 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 11giardiam,o/p ,culture neg 12normal IGA/TTG 13workup [id number] 15chronic 16RFA 17djd xray 2-015 18xray 2005 [...] [facility] Associate Professional Member Role: PCP Address: Address: [address] [place] [address]- Name: Adam Dennis MD Position: [facility] Cardiology MD Member Role: Lifetime Consulting Physician Address: Address: [address] [place] [address] [address] [place] [address]- [place] Name: Julia Yu RN Position: [facility] RN Member Role: [...] Persons Name: FLORENCE SARWAT Address: [address] [place] [address] Name: JOSEFIAN CONTRERAS Address: [address] [place] [address]
--- OUTSIDE RECORDS SUMMARY | 2023-10-05 09:55 | XMS_ITS | Continuity of Care Document ---
Author Name Unknown Organization [facility] Address [address] [place] [address]- Care Team Providers Care Desizing Machine Back Tender Name Role Phone Michael Zafar MD Primary Care Physician Encounter [facility] [place] ACCT R [id number] Date(s): 07/22/22 - 07/29/22 [facility] [address] [place] [address]- Encounter Diagnosis Type 2 diabetes with nephropathy(Discharge Diagnosis) - 07/22/22 Benign Essential Hypertension(Discharge Diagnosis) - 07/22/22 Hyperlipidemia NOS(Discharge Diagnosis) - 07/22/22 Mild major depression(Discharge Diagnosis) - 07/22/22 Chronic gout(Discharge Diagnosis) - 07/22/22 Breast pain, left refer breast center(Discharge Diagnosis) - 07/22/22 Hearing loss refer eval JUL 2022(Discharge Diagnosis) - 07/22/22 Attending Physician: Michael Zafar MD Allergies, Adverse Reactions, Alerts Substance Reaction Severity Status lisinopril 1, 2 Active gabapentin unknown Active carvedilol 3 Active citalopram dizzy Active Percocet vomiting Active Effexor dizziness Active Welchol muscle and joint aches Activ e Lactose 4, 5 diarrhea Active FLUoxetine dizziness Active traZODone Active Remeron 6 dizziness Active Bee Stings Active Percocet 5/325 7 Active 1cough 2possible 3blurred vision 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 5patient states he drinks milk all of the time 6nightmares 7Pt states the last time he hade it, 16 years ago, it made him vomit Immunizations Given and Recorded Vaccine Date Status Refusal Reason SARS-CoV-2 mRNA (dhtnnnp-lwro-xtjce) vax 1 04/29/22 Given influenza virus vaccine, [...] Pneumococcal Vaccine (oldterm) 11/07/98 Given 1Result Comment: [facility]-[id number] 2Result Comment: [facility]# [address] [phone] 3Location History: [place] 4Result Comment: [06/30/2017] [facility] 5Result Comment: [08/12/2015] Received at [facility] 6Result Comment: Pfizer right deltoid lot [id number] exp 06-06-2021 [facility] 7Admin Note: GIVEN IN CLINIC SHAM [...] 06/03/22 11:47:00 EDT, Route to Pharmacy Electronically, [facility], 175, cm, 06/03/22 11:28:00 EDT, Height, 84.1, kg, 06/07/21 4:26:00 EDT,... Start Date: 06/03/22 Status: Ordered amLODIPine 5 mg oral tablet 1 tablet, By Mouth, Daily, # 90 tablet, 1 Refills, [facility], 175, cm, 02/09/22 10:10:00 [...] tablet, 1 Refills, 05/09/22 6:15:00 EDT, [facility], 175, cm, 04/29/22 10:58:00 EDT, Height, 84.1, kg, 06/07/21 4:26:00 EDT, Dry Weight Start Date: 05/09/22 Status: Ordered Eliquis 2.5 mg oral tablet 1 tablet, By Mouth, 2 times a day, # 180 tablet, 9 Refills, [facility], 175, cm, 02/09/22 10:10:00 EDT, Height, 84.1, kg, 06/07/21 4:26:00 EDT, Dry Weight Start Date: 02/10/22 Status: Ordered LORazepam 1 mg oral tablet 1 tablet = 1 mg, By Mouth, Daily at bedtime, to fill on 07/15, 28 day script from here on out to keep patient on consistent weekday schedule, # 28 tablet, 0 Refills, Maintenance, 06/21/22 22:07:00 EDT, [facility], 175, cm,... Start Date: 06/21/22 Status: Ordered magnesium oxide 400 mg oral tablet 1 tablet, By Mouth, Daily, # 90 tablet, 1 Refills, [facility], 175, cm, 02/09/22 10:10:00 [...] Start Date: 05/05/22 Status: Ordered nystatin topical [id number] u/gm powder 1 application, Topically, 2 times a day, # 60 Gm, 5 Refills, Maintenance, 01/14/22 10:20:00 EST, Powder, [facility], Partial fill upon patient request if the prescription is for a schedule II opioid drug., 1 application Topically... Start Date: 01/14/22 Status: Ordered omeprazole 20 mg oral enteric coated capsule 1 capsule, By Mouth, Daily, # 90 capsule, 0 Refills, 05/13/22 12:10:00 EDT, [facility], 175, cm, 05/12/22 13:46:00 EDT, Height, 84.1, kg, 06/07/21 4:26:00 EDT, Dry Weight Start Date: 05/13/22 Status: Ordered sertraline 50 mg oral tablet 1 tablet = 50 mg, By Mouth, Daily, # 90 tablet, 1 Refills, Maintenance, 06/10/22 17:09:00 EDT, Tablet, [facility], Partial fill upon patient request if the prescription is for a schedule II opioid drug., 175, cm, 06/04/22 11:38:00... Start Date: 06/10/22 Status: Ordered tamsulosin 0.4 mg oral capsule 1, capsule, By Mouth, Daily at bedtime, # 90 capsule, Refills 1, Tot. Refills 1, 05/13/22 12:10:00 EDT, Route to Pharmacy Electronically, [facility], 175, cm, 05/12/22 13:46:00 EDT, Height, 84.1, kg, 06/07/21 4:26:00 EDT, Dry Weight Start Date: 05/13/22 Status: Ordered thiamine 100 mg oral tablet 100 mg, 1, tablet, By Mouth, Daily, # 30 tablet, Refills 11, Tot. Refills 11, Maintenance, 10/05/2116:07:00 EST, Route to Pharmacy Electronically, [facility], 175, cm, 09/23/21 12:36:00 [...] Active Anxiety(Confirmed) Active Aortic valve prosthesis pres [id number] TAVR 2018(Confirmed) 2, 3 Active Arteriosclerotic heart [...] H/O endarterectomy RT 2009,l eft 2020(Confirmed) Active Hearing loss refer eval JUL 2022(Confirmed) Active S/P TAVR (transcatheter aort ic valve [...] 24 Active Wrist pain, chronic(Confirmed) 25 Active Breast pain, left refer [facility](Confirmed) 07/22/22 Active PAF (paroxysmal atrial fibri llation) [id number] 6(Confirmed) Active 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 12giardiam,o/p ,culture neg 13normal IGA/TTG 14workup 15urology addressing [id number] 17ortho 18chronic 19RFA 20djd xray 2-015 21xray [...] Type 2 diabetes with nephropathy Discharge Diagnosis 07/22/22 Benign Essential Hypertension Discharge Diagnosis 07/22/22 Hyperlipidemia NOS Discharge Diagnosis 07/22/22 Mild major depression Discharge Diagnosis 07/22/22 Chronic gout Discharge Diagnosis 07/22/22 Breast pain, left refer breast center Discharge Diagnosis 07/22/22 Hearing loss refer eval JUL 2022 Discharge Diagnosis 07/22/22 Vital Signs Most recent to oldest [Reference Range]: 1 2 Height 175 cm (07/22/22 2:43 PM) 175 cm (07/22/22 2:24 PM) Weight 82.0 kg (07/22/22 2:24 PM) Oxygen Saturation [94-100 %] 95 % (07/22/22 2:24 PM) Pulse Rate [55-90 bpm] 88 bpm (07/22/22 2:24 PM) Body Mass Index [18.5-24.99] 26.78 *H* (07/22/22 2:24 PM) Blood Pressure [90-138/55-84 mm Hg] 124/ 82mm Hg (07/22/22 2:43 PM) 140/86mm Hg *H* (07/22/22 2:24 PM) Respiratory Rate [16-30 br/min] 18 br/mi n (07/22/22 2:24 PM) Temperature [96.8-100.4 DegF] 97.6 DegF (07/22/22 2:24 PM) Mode of Delivery (Oxygen) Room air (07/22/22 2:24 PM) Blood pressure sites Arm, left (07/22/22 2:43 PM) Arm, left (07/22/22 2:24 PM) Temperature Route Oral (07/22/22 2:24 PM) Weight Obtained Via Standing scale (07/22/22 2:24 PM) Social History Social History Type Response Smoking Status Former smoker, quit more than 30 days ago entered on: 03/01/19 Sex Care Team Personnel Name: Charisma LENZ, Michael [place] Address: [address] [facility] [place] [address]-
--- OUTSIDE RECORDS SUMMARY | 2023-10-05 09:55 | XMS_ITS | Continuity of Care Document ---
Author Name Unknown Organization [facility] Address [address] [place] [address]- Care Team Providers Care Wire Stitcher Operator Name Role Phone Ju Giovana BROWN Primary Care Physician En[place] [facility] [place] Date(s): 01/20/23 - 02/19/23 [facility] [address] [place] [address]- Attending Physician: Ju Chavez Admitting Physician: Ju Chavez Referring Physician: AdmJu martinez Allergies, Adverse Reactions, Alerts Substance Reaction Severity [...] vaccine, inactivated 11/27/10 Give n SARS-CoV-2 mRNA (suacxsx-rlan-zvzjd) vax 5 04/29/22 Given SARS-CoV-2 (COVID-19) mRNA [...] Pneumococcal Vaccine (oldterm) 11/07/98 Given 1Result Comment: [facility]# [address] [phone] 2Location History: [place] 3Result Comment: [06/30/2017] HIGH DOSE RECIEVED AT [facility] [address] [address] 4Resconstance Comment: [08/12/2015] Received at [facility] [place] 5Result Comment: [facility]-[id number] 6Result Comment: Pfizer right deltoid lot [id number] exp 06-06-2021 [facility] 7Admin Note: GIVEN IN CLINIC SHAM 8Admin [...] 09/05/22 12:57:00 EDT, Route to Pharmacy Electronically, [facility], 175, cm, 07/22/22 14:43:00 EDT, Height, 84.1, kg, 06/07/21 4:26:00 EDT, Dry Weight Start Date: 09/05/22 Status: Ordered amLODIPine 5 mg oral tablet 1 tablet, By Mouth, Daily, # 90 tablet, 1 Refills, Maintenance, 08/07/22 10:52:00 EDT, [facility], 175, cm, 07/22/22 14:43:00 EDT, [...] 90 tablet, 1 Refills, 11/24/22 14:41:00 EST, [facility], 175, cm, 09/29/22 12:43:00 EST, Height, 84.1, kg, 06/07/21 4:26:00 EDT, Dry Weight Start Date: 11/24/22 Status: Ordered Eliquis 2.5 mg oral tablet 1 tablet, By Mouth, 2 times a day, # 180 tablet, 9 Refills, 02/18/23 17:26:00 EDT, [facility], 175, cm, 01/24/23 11:05:00 EDT, Height, 84.1, kg, 06/07/21 4:26:00 EDT, Dry Weight Start Date: 02/18/23 Status: Ordered LORazepam 1 mg oral tablet 1 tablet = 1 mg, By Mouth, Daily at bedtime, 11/09 - 03/08/2312/10 - 04/07/23 3/3 delivery Sunday 05/06, start taking 05/07/23, # 30 tablet, 2 Refills, Maintenance, 02/18/23 10:24:00 EDT, [facility], 175, cm, 01/24/23 11:05:00 EDT,... Start Date: 02/18/23 Status: Ordered magnesium oxide 400 mg oral tablet 1 tablet, By Mouth, Daily, # 90 tablet, 11 Refills, Maintenance, 08/09/22 9:27:00 EDT, [facility], 175, cm, 07/22/22 14:43:00 EDT, Height, 84.1, kg, 06/07/21 4:26:00 EDT, Dry Weight Start Date: 08/09/22 Status: Ordered Melatonin Daily at bedtime, 0 Refills, Maintenance, 01/24/23 11:27:00 EDT Start Date: 01/24/23 Status: Ordered nystatin topical 194007 u/gm powder 1 application, Topically, 2 times a day, # 60 Gm, 5 Refills, Maintenance, 01/14/22 10:20:00 EST, Powder, [facility], Partial fill upon patient request if the prescription is for a schedule II opioid drug., 1 application Topically... Start Date: 01/14/22 Status: Ordered omeprazole 20 mg oral enteric coated capsule 1 capsule, By Mouth, Daily, # 90 capsule, 0 Refills, Maintenance, 11/24/22 14:41:00 EST, [facility], 175, cm, 09/29/22 12:43:00 EST, Height, 84.1, kg, 06/07/21 4:26:00 EDT, Dry Weight Start Date: 11/24/22 Status: Ordered tamsulosin 0.4 mg oral capsule 1, capsule, By Mouth, Daily at bedtime, # 90 capsule, Refills 1, Tot. 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 12giardiam,o/p ,culture neg 13normal IGA/TTG 14workup 15urology addressing [id number] 17ortho 18chronic 19RFA 20djd xray 2-015 21xray [...] Team Personnel Name: Giovana Dodd NP Position: [facility] PCO Associate Professional Member Role: PCP Address: Address: [address] [place] [address]- Name: Adam Dennis MD Position: [facility] Cardiology MD Member Role: Lifetime Consulting Physician Address: Address: [address] [place] [address] [place] [address]- Name: Julia Yu RN Position: [facility] RN Member Role: Primary Care Nurse Name: Jo Dillon RN Position: [facility] RN Member Role: Primary Care Nurse Name: Anh Pires RN Position: S RN Member Role: Primary Care Nurse Name: Lonnie Puente Position: [facility] RN Member Role: Primary Care Nurse Name: Jaqueline Johnson RN Position: [facility] RN Member Role: Primary Care Nurse Name: Kathy Garcia RN Position: [facility] RN Member Role: Primary Care Nurse Name: Viki Collazo RN Position: [facility] RN Member Role: Primary Care Nurse Care Team Related Persons Name: SARWAT HENRIQUEZ Address: [place] [address] Name: JOSEFINA CONTRERAS Address: [address] [place] [address]
--- OUTSIDE RECORDS SUMMARY | 2023-10-05 09:55 | XMS_ITS | Continuity of Care Document ---
Author Name Unknown Organization [facility] [place] [facility] Address [address] [place] [address]- Care Team Providers Care Privacy Manager Name Role Phone Michael Zafar MD Primary Care Physician Encounter [facility] [place] Date(s): 09/14/19 - 11/14/19 [facility] [address] [place] [address]- [facility] Attending Physician: Michael Zafar MD [...] 3Rrenée Comment: [06/30/2017] HIGH DOSE RECIEVED AT [facility] 4Rrenée Comment: [08/12/2015] Received at [facility] [place] 5Admin Note: given in [...] Gm, 0 Refills, Maintenance, 10/10/19 11:35:05 EST, [place], 1 sprays Nares, Both 2 times a [...] 3 Refills, Maintenance, Tablet, Route toPharmacy Electronically, [id number], [facility] [id number], Rx resent from 11/03/16. [...] 12/28/18 10:45:55 EST, Route to Pharmacy Electronically, [id number] Start Date: 12/28/18 Status: Ordered Tums 500 [...] Active Anxiety(Confirmed) Active Aortic valve prosthesis pres [id number] TAVR 2017(Confirmed) 2, 3 Active Arteriosclerotic heart [...] 25 Active PAF (paroxysmal atrial fibri llation) [id number] 6(Confirmed) Active 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, 27, 28 Active Restless legs syndrome (RLS)(Confirmed) Active Thrombocytopenia(Confirmed) 29, 30 06/22/09 Active Tricuspid insufficiency(Confirmed) Active Trochanteric bursitis of rig ht hip(Confirmed) Active Type 2 diabetes with nephropathy(Confirmed) Active Type 2 diabetes mellitus wit h peripheral angiopathy(Confirmed) Active Active 1educated about use epi pen /when call 2CARPENTIER PERICARDIAL VALVE [facility] 59542 41 graft 5CABG 2002 6Dr nini addressing 7nephrolithiasis 8to workup 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 12Zung=mod depression 13has seen fabrication welder,[place] [facility];risk diabetes 14urology addressing [id number] 16ortho 17chronic 18RFA 19djd xray 2-015 20xray [...]
--- OUTSIDE RECORDS SUMMARY | 2023-10-05 09:55 | XMS_ITS | Continuity of Care Document ---
Author Name Unknown Organization [facility] Address [address] [place] [id number]- Care Team Providers Care Supervisor Liquid Yeast Name Role Phone Charisma LENZ, Michael Boston Primary Care Physician [place] [facility] [place] Date(s): 07/25/20 - 11/22/20 [facility] [address] [place] [address]- Attending Physician: Konstantin BROWN, Sussy Mercado Admitting Physician: Konstantin BROWN, Sussy Mercado Referring Physician: Konstantin BROWN, Sussy Mercado Allergies, Adverse [...] [06/30/2017] HIGH DOSE RECIEVED AT [facility] Lucero Comment: [08/12/2015] [place] [facility] [place]Admin Note: GIVEN IN CLINIC SHAM 5Admin [...] 10/20/20 11:45:00 EST, Route to Pharmacy Electronically, [facility]/pharmacy #[id number], 175, cm, 10/20/20 11:12:00 EST, Height, [...] 180 tablet, 3 Refills, Maintenance, 03/05/20 13:50:00EDT, [facility]/pharmacy #[id number], 176.5, cm, 12/25/19 15:48:00 EST, [...] 3 Refills, Maintenance, 12/17/19 11:48:00 EST, Tablet, [facility]/pharmacy #[id number], Rx resent from 11/03/16., 176.5, cm, 12/17/19 11:35:00 EST, Height, 83.4, kg, 11/02/18 13:42:00 EST, Dry Weight Start Date: 12/17/19 Status: Ordered LORazepam 1 mg oral tablet 1 tablet = 1 mg, By Mouth, Daily at bedtime, # 30 tablet, 2 Refills, Maintenance, 09/08/20 12:59:00EST, [facility]/pharmacy #[id number], 175, cm, 09/08/20 12:47:00 EST, [...] Refills, Maintenance, 12/17/19 11:48:00 EST, EC Tablet, [facility]/pharmacy #[id number], 176.5, cm, 12/17/19 11:35:00 EST, Height, 83.4, kg, 11/02/18 13:42:00 EST, Dry Weight Start Date: 12/17/19 Status: Ordered predniSONE 10 mg oral tablet See Instructions, 4 tablets daily for 2 days 3 tablets daily for 2 days 2 tablets daily for 2 days 1 tablet daily for 2 days, # 20 tablet, 0 Refills, Maintenance, 11/21/20 11:46:00 EST, Tablet, [facility], Partial fill upon patient re... Start Date: 11/21/20 Status: Ordered tamsulosin 0.4 mg oral capsule 0.4 mg, By Mouth, Daily at bedtime, # 90 capsule, Refills 3, Tot. Refills 3, Maintenance, 12/17/19 11:48:00 EST, Route to Pharmacy Electronically, [facility]/pharmacy #[id number], 176.5, cm, 12/17/19 11:35:00 EST, Height, 83.4, kg, 11/02/18 13:42:00 EST, Dry Weight Start Date: 12/17/19 Status: Ordered thiamine 100 mg oral tablet 100 mg, 1, tablet, By Mouth, Daily, # 30 tablet, Refills 11, Tot. Refills 11, Maintenance, 09/08/2013:24:00 EST, Route to Pharmacy Electronically, [facility]/pharmacy #[id number], 175, cm, 09/08/20 12:47:00 EST,Height, [...] Active Anxiety(Confirmed) Active Aortic valve prosthesis pres [id number] TAVR 2017(Confirmed) 2, 3 Active Arteriosclerotic heart [...] 25 Active PAF (paroxysmal atrial fibri llation) [id number] 6(Confirmed) Active 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, 27, 28 Active Restless legs syndrome (RLS)(Confirmed) Active Thrombocytopenia(Confirmed) 29, 30 06/22/09 Active Tricuspid insufficiency(Confirmed) Active Trochanteric bursitis of rig ht hip(Confirmed) Active Type 2 diabetes with nephropathy(Confirmed) Active Type 2 diabetes mellitus wit h peripheral angiopathy(Confirmed) Active 1educated about use epi pen /when call 2[employer] PERICARDIAL VALVE [facility] 60194 41 graft 5CABG 2002 6Dr nini addressing 7nephrolithiasis 8to workup 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 12giardiam,o/p ,culture neg 13normal IGA/TTG 14workup 15urology addressing [id number] 17ortho 18chronic 19RFA 20djd xray 2-015 21xray [...]
--- OUTSIDE RECORDS SUMMARY | 2023-10-05 09:56 | XMS_ITS | Continuity of Care Document ---
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 Fur Tailor Name Role Phone Michael Zafar MD Primary Care Physician Encounter [facility] [place] [id number] Date(s): 10/12/21 - 10/19/21 [facility] [place] [address] [place] [address]- Encounter Diagnosis Chronic gout(Discharge Diagnosis) - 10/12/21 Mild major depression(Discharge Diagnosis) - 10/12/21 Attending Physician: Michael Zafar MD Allergies, Adverse [...] Vaccine (oldterm) 11/07/98 Given 1Result Comment: [facility]# [address] [phone] 2Location History: [place] 3Rrenée Comment: [06/30/2017] [facility]Rrenée Comment: [08/12/2015] [place] [facility] [place] Pfizer right deltoid lot [id number] exp 06-06-2021 [facility] 6Admin Note: GIVEN IN CLINIC [...] 09/01/21 11:50:00 EDT, Route to Pharmacy Electronically, [facility], 175, cm, 08/12/21 15:35:00 EDT, Height, 84.1, kg, 06/07/21 4:26:00 EDT,... Start Date: 09/01/21 Status: Ordered amLODIPine 5 mg oral tablet See Instructions, 1/2 at night, # 45 each, Refills 1, Tot. Refills 1, Maintenance, 06/08/21 11:27:00 EDT, Instructions Replace Required Details, Route to Pharmacy Electronically, [facility]/pharmacy #[id number], 175, cm, 06/07/21 8:16:00 [...] 90 tablet, 1 Refills, 09/01/21 11:50:00 EDT, [facility], 175, cm, 08/12/21 15:35:00 EDT, Height, 84.1, kg, 06/07/21 4:26:00 EDT, Dry Weight Start Date: 09/01/21 Status: Ordered Eliquis 2.5 mg oral tablet 1 tablet, By Mouth, 2 times a day, # 180 tablet, 3 Refills, Maintenance, 03/17/21 11:43:00 EDT, [id number], 175, cm, 02/06/21 10:40:00 EDT, Height, 79, [...] 30 tablet, 0 Refills, Maintenance, 10/05/21 16:08:00EST, [facility], 175, cm, 09/23/21 12:36:00 EST, Height, 84.1, kg, 06/07/21 4:26:00 EDT, Dry Weight Start Date: 10/05/21 Status: Ordered magnesium oxide 400 mg oral tablet 1 tablet = 400 mg, By Mouth, Daily, # 90 tablet, 3 Refills, Maintenance, 02/12/21 17:31:00 EDT, Tablet, [facility]/pharmacy #[id number], Partial fill upon patient [...] 90 capsule, 0 Refills, 09/01/21 11:50:00 EDT, [facility], 175, cm, 08/12/21 15:35:00 EDT, Height, 84.1, kg, 06/07/21 4:26:00 EDT, Dry Weight Start Date: 09/01/21 Status: Ordered predniSONE 50 mg oral tablet 1 tablet = 50 mg, By Mouth, Daily, in am with food, # 3 tablet, 0 Refills, Maintenance, 10/12/21 15:26:00 EST, Tablet, [facility]/pharmacy #[id number], Partial fill upon patient request if the prescription is fora schedule II opioid drug., 175, cm, 10/12/21 14:45... Start Date: 10/12/21 Status: Ordered tamsulosin 0.4 mg oral capsule 1, capsule, By Mouth, Daily at bedtime, # 90 capsule, Refills 1, Tot. Refills 0, Maintenance, 05/08/21 14:24:00 EDT, Route to Pharmacy Electronically, [id number], 175, cm, 04/29/21 10:36:00 EDT,Height, 79, kg, 11/26/20 11:00:00 EST, Dry Weight Start Date: 05/08/21 Status: Ordered thiamine 100 mg oral tablet 100 mg, 1, tablet, By Mouth, Daily, # 30 tablet, Refills 11, Tot. Refills 11, Maintenance, 10/05/2116:07:00 EST, Route to Pharmacy Electronically, [facility], 175, cm, 09/23/21 12:36:00 EST, [...] Active Anxiety(Confirmed) Active Aortic valve prosthesis pres [id number] TAVR 2017(Confirmed) 2, 3 Active Arteriosclerotic heart [...] 25 Active PAF (paroxysmal atrial fibri llation) [id number] 6(Confirmed) Active 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, 27, 28 Active Restless legs syndrome (RLS)(Confirmed) Active Thrombocytopenia(Confirmed) 29, 30 06/22/09 Active Tricuspid insufficiency(Confirmed) Active Trochanteric bursitis of rig ht hip(Confirmed) Active Type 2 diabetes with nephropathy(Confirmed) Active Type 2 diabetes mellitus wit h peripheral angiopathy(Confirmed) Active 1educated about use epi pen /when call 2[employer] PERICARDIAL VALVE [facility] [address] 41 graft 5CABG 2002 6Dr nini addressing 7nephrolithiasis 8to workup 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 12giardiam,o/p ,culture neg 13normal IGA/TTG 14workup 15urology addressing [id number] 17ortho 18chronic 19RFA 20djd xray 2-015 21xray 2004 LS arthritis etc 22BCG 23carcinoma in situ 24saw ortho 25s aw ortho;injected SEVERE pain 26endocrinology addressing 27MRI pti ;refer endo 28mri c spine 2014 29per hematology ? 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
--- OUTSIDE RECORDS SUMMARY | 2023-10-05 09:56 | XMS_ITS | Continuity of Care Document ---
Author Name Unknown Organization [facility] Address [address] [place] [address]- Care Team Providers Care Technical Rep Name Role Phone Charisma LENZ, Michael Bsoton Primary Care Physician Encounter [facility] [place] Date(s): 06/04/22 - 07/04/22 [facility] [address] [place] [id number]- Attending Physician: Ju Chavez Admitting Physician: Ju [...] Vaccine Date Status Refusal Reason SARS-CoV-2 mRNA ([id number]) vax 1 04/29/22 Given influenza virus vaccine, [...] 1Result Comment: [facility] [place]-[id number] 2Result Comment: [facility]# [address] [phone] 3Location History: [place] 4Result Comment: [06/30/2017] [facility] 5Resconstance Comment: [08/12/2015] [place] [facility] [place] 6Result Comment: Pfizer right deltoid lot [id number] exp 06-06-2021 [facility] 7Admin Note: GIVEN IN CLINIC SHAM 8Admin [...] 06/03/22 11:47:00 EDT, Route to Pharmacy Electronically, [facility], 175, cm, 06/03/22 11:28:00 EDT, [...] 1 Refills, 05/09/22 6:15:00 EDT, [facility], 175, cm, 04/29/22 10:58:00 EDT, Height, [...] tablet, 0 Refills, Maintenance, 06/21/22 22:07:00 EDT, [facility], 175, cm,... Start Date: 06/21/22 [...] Start Date: 05/05/22 Status: Ordered nystatin topical [id number] u/gm powder 1 application, Topically, 2 times [...] 90 capsule, 0 Refills, 05/13/22 12:10:00 EDT, [facility], 175, cm, 05/12/22 13:46:00 EDT, Height, 84.1, kg, 06/07/21 4:26:00 EDT, Dry Weight Start Date: 05/13/22 Status: Ordered sertraline 50 mg oral tablet 1 tablet = 50 mg, By Mouth, Daily, # 90 tablet, 1 Refills, Maintenance, 06/10/22 17:09:00 EDT, Tablet, [facility], Partial fill upon patient request if the prescription is for a schedule II opioid drug., 175, cm, 06/04/22 11:38:00... Start Date: 06/10/22 Status: Ordered tamsulosin 0.4 mg oral capsule 1, capsule, By Mouth, Daily at bedtime, # 90 capsule, Refills 1, Tot. Refills 1, 05/13/22 12:10:00 EDT, Route to Pharmacy Electronically, [facility], 175, cm, 05/12/22 13:46:00 [...] Active Anxiety(Confirmed) Active Aortic valve prosthesis pres [id number] TAVR 2017(Confirmed) 2, 3 Active Arteriosclerotic heart [...] 25 Active PAF (paroxysmal atrial fibri llation) [id number] 6(Confirmed) Active 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 12giardiam,o/p ,culture neg 13normal IGA/TTG 14workup 15urology addressing [id number] 17ortho 18chronic 19RFA 20djd xray 2-015 21xray [...] Personnel Name: Charisma LENZ, Michael Boston Address: [address] [place] [address] [place] [address]-
--- OUTSIDE RECORDS SUMMARY | 2023-10-05 09:56 | XMS_ITS | Continuity of Care Document ---
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 Role Phone Ju Giovana BROWN Primary Care Physician [phone] Encounter [facility] Date(s): 09/29/22 - 10/06/22 [facility] [address] [place] [address]- Encounter Diagnosis Medicare annual wellness visit, subsequent(Discharge Diagnosis) - 09/29/22 Self-care deficit.nurse wound care(Discharge Diagnosis) - 09/29/22 Type 2 diabetes with nephropathy(Discharge Diagnosis) - 09/29/22 Type 2 diabetes mellitus with peripheral angiopathy(Discharge Diagnosis) - 09/29/22 PAF (paroxysmal atrial fibrillation) [id number] 6(Discharge Diagnosis) - 09/29/22 Chronic anticoagulation(Discharge Diagnosis) - 09/29/22 Aortic valve prosthesis [id number] TAVR 2018(Discharge Diagnosis) - 09/29/22 Arteriosclerotic heart disease (ASHD) cabg 2002;x1(Discharge Diagnosis) - 09/29/22 Hx of CABG x 1;2002(Discharge Diagnosis) - 09/29/22 H/O endarterectomy RT 2009,left 2020 DEC(Discharge Diagnosis) - 09/29/22 History of lacunar cerebrovascular accident MRI 2020(Discharge Diagnosis) - 09/29/22 Benign Essential Hypertension(Discharge Diagnosis) - 09/29/22 COPD (chronic obstructive pulmonary disease) with acute bronchitis(Discharge Diagnosis) - 09/29/22 Bladder cancer 2010/refuses f/u cyysto 2021 advised re abn cytology(Discharge Diagnosis) - 09/29/22 Breast pain, left refer breast center(Discharge Diagnosis) - 09/29/22 Chronic back pain spine center 2021(Discharge Diagnosis) - 09/29/22 Chronic gout(Discharge Diagnosis) - 09/29/22 Hyperlipidemia NOS(Discharge Diagnosis) - 09/29/22 CHF (congestive heart failure) systolic(Discharge Diagnosis) - 09/29/22 Cardiac pacemaker(Discharge Diagnosis) - 09/29/22 BPH without urinary obstruction(Discharge Diagnosis) - 09/29/22 Elevated PSA(Discharge Diagnosis) - 09/29/22 GERD EGD 2007y(Discharge Diagnosis) - 09/29/22 Encounter for monitoring long-term proton pump inhibitor therapy(Discharge Diagnosis) - 09/29/22 Anxiety(Discharge Diagnosis) - 09/29/22 Pituitary microadenoma(Discharge Diagnosis) - 09/29/22 S/P TAVR (transcatheter aortic valve replacement)(Discharge Diagnosis) - 09/29/22 Sensory hearing loss, bilateral(Discharge Diagnosis) - 09/29/22 Thrombocytopenia hematology 2008 ? immune referred hematology 2021(Discharge Diagnosis) - 09/29/22 Nephrolithiasis(Discharge Diagnosis) - 09/29/22 Mass of left parotid gland 1.[address] 2020(Discharge Diagnosis) - 09/29/22 Restless legs syndrome (RLS)(Discharge Diagnosis) - 09/29/22 Insomnia(Discharge Diagnosis) - 09/29/22 Moderate major depression(Discharge Diagnosis) - 09/29/22 Attending Physician: Charisma LENZ, Michael Boston Allergies, Adverse [...] Vaccine Date Status Refusal Reason SARS-CoV-2 mRNA ([id number]) vax 1 04/29/22 Given influenza virus vaccine, [...] Pneumococcal Vaccine (oldterm) 11/07/98 Given 1Result Comment: [facility]-[id number] 2Result Comment: [facility]# [address] [phone] 3Location History: [place] 4Result Comment: [06/30/2017] HIGH DOSE RECIEVED AT [facility] 5Result Comment: [08/12/2015] [place] [facility] [place] Comment[place] Pfizer right deltoid lot [id number] exp 06-06-2021 [facility] 7Admin Note: GIVEN IN CLINIC SHAM [...] 09/05/22 12:57:00 EDT, Route to Pharmacy Electronically, [facility], 175, cm, 07/22/22 14:43:00 EDT, Height, 84.1, kg, 06/07/21 4:26:00 EDT, Dry Weight Start Date: 09/05/22 Status: Ordered amLODIPine 5 mg oral tablet 1 tablet, By Mouth, Daily, # 90 tablet, 1 Refills, Maintenance, 08/07/22 10:52:00 EDT, [facility], 175, cm, 07/22/22 14:43:00 [...] 90 tablet, 1 Refills, 05/09/22 6:15:00 EDT, [facility], 175, cm, 04/29/22 10:58:00 EDT, Height, 84.1, kg, 06/07/21 4:26:00 EDT, Dry Weight Start Date: 05/09/22 Status: Ordered Eliquis 2.5 mg oral tablet 1 tablet, By Mouth, 2 times a day, # 180 tablet, 9 Refills, [facility], 175, cm, 02/09/22 10:10:00 EDT, Height, 84.1, kg, 06/07/21 4:26:00 EDT, Dry Weight Start Date: 02/10/22 Status: Ordered LORazepam 1 mg oral tablet 1 tablet = 1 mg, By Mouth, Daily at bedtime, 11/09 delivery Tuesday10/08/22, start taking Sat 10/09/22.12/10 delivery Tuesday11/08/2201/07 delivery Tuesday12/08/22, # 30 tablet, 2 Refills, Maintenance, 10/05/22 14:25:00 EST, [facility]... Start Date: 10/05/22 Status: Ordered magnesium oxide 400 mg oral tablet 1 tablet, By Mouth, Daily, # 90 tablet, 1 Refills, Maintenance, 08/09/22 9:27:00 EDT, [facility], 175, cm, 07/22/22 14:43:00 EDT, Height, 84.1, kg, 06/07/21 4:26:00 EDT, Dry Weight Start Date: 08/09/22 Status: Ordered magnesium oxide 400 mg oral tablet 1 tablet, By Mouth, Daily, # 90 tablet, 11 Refills, Maintenance, 08/09/22 9:27:00 EDT, [facility], 175, cm, 07/22/22 14:43:00 [...] Start Date: 05/05/22 Status: Ordered nystatin topical 222377 u/gm powder 1 application, Topically, 2 times a day, # 60 Gm, 5 Refills, Maintenance, 01/14/22 10:20:00 EST, Powder, [facility], Partial fill upon patient request if the prescription is for a schedule II opioid drug., 1 application Topically... Start Date: 01/14/22 Status: Ordered omeprazole 20 mg oral enteric coated capsule 1 capsule, By Mouth, Daily, # 90 capsule, 0 Refills, Maintenance, 08/07/22 10:53:00 EDT, [facility], 175, cm, 07/22/22 14:43:00 EDT, Height, 84.1, kg, 06/07/21 4:26:00 EDT, Dry Weight Start Date: 08/07/22 Status: Ordered tamsulosin 0.4 mg oral capsule 1, capsule, By Mouth, Daily at bedtime, # 90 capsule, Refills 1, Tot. Refills 1, 05/13/22 12:10:00 EDT, Route to Pharmacy Electronically, [facility], 175, cm, 05/12/22 13:46:00 EDT, [...] 08/09/22 9:27:00 EDT, Route to Pharmacy Electronically, [facility], 175, cm, 07/22/22 14:43:00 EDT, Height, 84.1, kg, 06/07/21 4:26:00 EDT, Dry Weight Start Date: 08/09/22 Status: Ordered Vitamin B1 100 mg oral tablet 1, tablet, By Mouth, Daily, # 30 tablet, Refills 11, Maintenance, 08/09/22 9:27:00 EDT, Route to Pharmacy Electronically, [facility], 175, cm, 07/22/22 14:43:00 [...] Active Anxiety Confirmed Active Aortic valve prosthesis [id number] TAVR 2017 2, 3 Confirmed Active Arteriosclerotic [...] (congestive heart failure) systolic Confirmed Active Self-care deficit.nurse wound care Confirmed Active Encounter for monitoring long-term proton [...] Confirmed 07/22/22 Active PAF (paroxysmal atrial fibrillation) [id number] 6 Confirmed Active Pituitary microadenoma 26, 27, 28 Confirmed Active Restless legs syndrome (RLS) Confirmed Active Thrombocytopenia hematology 2008 ? 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 12giardiam,o/p ,culture neg 13normal IGA/TTG 14workup 15urology addressing [id number] 17ortho 18chronic 19RFA 20djd xray 2-015 21xray [...] Medicare annual wellness visit, subsequent Discharge Diagnosis 09/29/22 Type 2 diabetes with nephropathy Discharge Diagnosis 09/29/22 Type 2 diabetes mellitus with peripheral angiopathy Discharge Diagnosis 09/29/22 PAF (paroxysmal atrial fibrillation) [id number] 6 Discharge Diagnosis 09/29/22 Chronic anticoagulation Discharge Diagnosis 09/29/22 Aortic valve prosthesis [id number] TAVR 2018 Discharge Diagnosis 09/29/22 Arteriosclerotic heart disease (ASHD) cabg 2002;x1 Discharge Diagnosis 09/29/22 Benign Essential Hypertension Discharge Diagnosis 09/29/22 CHF (congestive heart failure) systolic Discharge Diagnosis 09/29/22 Hyperlipidemia NOS Discharge Diagnosis 09/29/22 COPD (chronic obstructive pulmonary disease) with acute bronchitis Discharge Diagnosis 09/29/22 Bladder cancer 2010/refuses f/u cyysto 2021 advised re abn cytology Discharge Diagnosis 09/29/22 Breast pain, left refer breast center Discharge Diagnosis 09/29/22 Chronic back pain spine center 2021 Discharge Diagnosis 09/29/22 Chronic gout Discharge Diagnosis 09/29/22 Cardiac pacemaker Discharge Diagnosis 09/29/22 BPH without urinary obstruction Discharge Diagnosis 09/29/22 Elevated PSA Discharge Diagnosis 09/29/22 GERD EGD 2007y Discharge Diagnosis 09/29/22 Encounter for monitoring long-term proton pump inhibitor therapy Discharge Diagnosis 09/29/22 H/O endarterectomy RT 2010,left 2020 Discharge Diagnosis 09/29/22 History of lacunar cerebrovascular accident MRI 2020 Discharge Diagnosis 09/29/22 Anxiety Discharge Diagnosis 09/29/22 Pituitary microadenoma Discharge Diagnosis 09/29/22 S/P TAVR (transcatheter aortic valve replacement) Discharge Diagnosis 09/29/22 Sensory hearing loss, bilateral Discharge Diagnosis 09/29/22 Thrombocytopenia hematology 2008 ? immune referred hematology 2021 Discharge Diagnosis 09/29/22 Nephrolithiasis Discharge Diagnosis 09/29/22 Mass of left parotid gland 1.[address] 2020 dec Discharge Diagnosis 09/29/22 Restless legs syndrome (RLS) Discharge Diagnosis 09/29/22 Insomnia Discharge Diagnosis 09/29/22 Hx of CABG x 1;2002 Discharge Diagnosis 09/29/22 Self-care deficit.nurse wound care Discharge Diagnosis 09/29/22 Moderate major depression Discharge Diagnosis 09/29/22 Vital Signs Most recent to oldest [Reference Range]: 1 Height 175 cm (09/29/22 12:43 PM) Weight 88.4 kg (09/29/22 12:43 PM) Oxygen Saturation [94-100 %] 96 % (09/29/22 12:43 PM) Pulse Rate [55-90 bpm] 88 bpm (09/29/22 12:43 PM) Body Mass Index [18.5-24.99 kg/m2] 28.87 kg/m2 *H* (09/29/22 12:43 PM) Blood Pressure [90-138/55-84 mm Hg] 136/ 77mm Hg (09/29/22 12:43 PM) Respiratory Rate [16-30 br/min] 16 br/mi n (09/29/22 12:43 PM) Temperature [96.8-100.4 DegF] 97.6 DegF (09/29/22 12:43 PM) Mode of Delivery (Oxygen) Room air (09/29/22 12:43 PM) Blood pressure sites Arm, left (09/29/22 12:43 PM) Temperature Route Oral (09/29/22 12:43 PM) Weight Obtained Via Standing scale (09/29/22 12:43 PM) Social History Social History Type Response Smoking Status Former smoker, quit more than 30 days ago entered on: 03/01/19 Sex Note * Raina Doyle: VERIFY, PERFORM, SIGN Event Display: Patient Education/Instruction Authored Date: [id number] [facility] *BMP So Kirk Newman Clinical Summary Name SHADI SWAN Age 87 Years 1935 PCP Charisma LENZ, Michael Boston PCP Visit Date 09/29/2022 12:27:00 Patient Instructions I will have Deb call you about more help at home 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 Future Appointments ?*Device??Clinic ?Phone:??--?Fax:??-- ?Appt. Date:??12/06/2022?7:40 AM ?Scheduled Provider:??Device Interrogation Follow-Up Instructions ?? With: Address: When: Ju BROWN, Giovana Chiu Comments: 6 months Diagnosis Encounter for general adult medical examination without abnormal findings Medications: Please continue your medications until treatment is completed or stopped by your provider. Discuss any questions related to medications with your provider. Medications to Continue with No Changes These medications were not printed or sent to your pharmacy Acetaminophen (acetaminophen 325 mg oral tablet) 650 Milligram Oral every 4 hours as needed Pain , Mild. Next Dose: Allopurinol (allopurinol 100 mg oral [...] Refills: 1. Next Dose: Cholecalciferol (Vitamin D3 1000 intl units oral capsule) 1 capsule Oral Daily. Next Dose: Cholecalciferol (Vitamin D3 2000 intl units oral capsule) 1 capsule Oral Daily for 30 Days. Refills: 11. Next Dose: Lorazepam (LORazepam 1 mg oral tablet) 1 tab(s) Oral Daily at Bedtime. 11/09 delivery Tuesday12/09/21, start taking 12/10/21. 12/10 delivery Tuesday11/08/2201/07 delivery Tuesday12/08/22. Refills: 2. Next Dose: Magnesium Oxide (magnesium oxide 400 mg oral tablet) 1 tab(s) Oral Daily. Refills: 11. Next Dose: Magnesium Oxide (magnesium oxide 400 mg oral tablet) 1 tab(s) Oral Daily. Refills: 1. Next Dose: Melatonin (melatonin 5 mg oral tablet) Oral Daily at Bedtime. Next Dose: Metoprolol (metoprolol succinate 25 mg oral capsule, extended release) 1 capsule Oral Daily. Next Dose: Nystatin Topical (nystatin topical 253706 u/gm powder) 1 venancio Topically twice a day. Refills: 5. Next Dose: Omeprazole (omeprazole 20 mg oral enteric coated capsule) 1 capsule Oral Daily. Refills: 0. Next Dose: Tamsulosin (tamsulosin 0.4 mg oral capsule) 1 capsule Oral Daily at Bedtime. Refills: 1. Next Dose: Thiamine (Vitamin B1 100 mg oral tablet) 1 tab(s) Oral Daily. Refills: 11. Next Dose: Thiamine (Vitamin B1 100 mg oral tablet) 1 tab(s) Oral Daily. Refills: 11. Next Dose: Trazodone (traZODone 50 mg oral tablet) 0.5 tab(s) Oral Daily at Bedtime. Next Dose: No Longer Take the Following Medications Sertraline (sertraline 50 mg oral tablet) 1 tab(s) Oral Daily. Refills: 1. Allergy Info:?? traZODone; FLUoxetine; Percocet 5/325; Lactose; Welchol; Bee Stings; Remeron; Effexor; Percocet; citalopram; carvedilol; gabapentin; lisinopril Medications Given This Visit Future Orders ?No future orders Vital Signs Height 175 cm Weight 88.4 kg BMI 28.87 kg/m2 Blood Pressure 136 mm Hg/77 mm Hg Temperature 97.6 DegF Pulse Rate 88 bpm Respiratory Rate 16 br/min 02 Sat Mode of Delivery 96 %/Room air You can now view a summary of your hospital visit from the comfort of your home through a free online portal called [employer]. [employer] is a website that allows you to securely view your medical information including discharge summary, medications and follow-up visits. ??You can alsosend a secure electronic message to your doctor???s office to request appointments, renew medications or just ask a question. You can enroll at [email or web address] or register during your next office visit. [...] primary care provider, you may find a [facility] provider by calling [facility] [employer] at [phone]. For information about the plan of care [...] Team Personnel Name: Raina Westbrook RN Position: [facility] RN Member Role: Primary Care Nurse Name: Giovana Dodd NP Position: [facility] PCO Associate Professional Member Role: PCP Address: Address: [address] [place] [address]- [place] Name: Adam Dennis MD Position: [facility] Cardiology MD Member Role: Lifetime Consulting Physician Address: Address: [address] [place] [address] [address] [place] [address]- Name: Jo Dillon RN Position: S RN Member Role: Primary Care Nurse Name: Anh Pirse RN Position: S RN Member Role: Primary [...] Persons Name: SARWAT HENRIQUEZ Address: home [address] [place] [address] Name: JOSEFINA CONTRERAS Address: home [address] [place] [address]
--- OUTSIDE RECORDS SUMMARY | 2023-10-05 09:56 | XMS_ITS | Continuity of Care Document ---
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 Role Phone Michael Zafar MD Primary Care Physician [place] [facility] [place]20 [facility] [address] [place] [address]- Attending Physician: Konstantin BROWN, Sussy Mercado Admitting [...] Bradford Comment: [06/30/2017] HIGH DOSE RECIEVED AT [facility] DR Lucero Comment: [08/12/2015] Received at [facility] [place] 4Ain Note: GIVEN IN CLINIC SHAM 5Admin [...] 10/20/20 11:45:00 EST, [id number], cm, 10/20/20 11:12:00 EST, Height, 80.6, kg, 08/05/20 17:31:00 EDT, Dry Weight Start Date: 10/20/20 Status: Ordered amLODIPine 5 mg oral tablet 5 mg, 1, tablet, By Mouth, Daily, # 30 tablet, Refills 3, Tot. Refills 3, Maintenance, 12/05/20 9:44:00 EST, [id number], 175, cm, 12/05/20 8:32:00 EST, Height, [...] Refills, Maintenance, 12/17/19 11:48:00 EST, EC Tablet, [facility] #[id number], 176.5, cm, 12/17/19 11:35:00 EST, Height, 83.4, kg, 11/02/18 13:42:00 EST, Dry Weight Start Date: 12/17/19 Status: Ordered tamsulosin 0.4 mg oral capsule 0.4 mg, By Mouth, Daily at bedtime, # 90 capsule, Refills 3, Tot. Refills 3, Maintenance, 12/17/19 11:48:00 EST, Route to Pharmacy Electronically, [facility] #[id number], 176.5, cm, 12/17/19 [...] Active Anxiety(Confirmed) Active Aortic valve prosthesis pres [id number] TAVR 2017(Confirmed) 2, 3 Active Arteriosclerotic heart [...] 25 Active PAF (paroxysmal atrial fibri llation) [id number] 6(Confirmed) Active 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, 27, 28 Active Restless legs syndrome (RLS)(Confirmed) Active Thrombocytopenia(Confirmed) 29, 30 06/22/09 Active Tricuspid insufficiency(Confirmed) Active Trochanteric bursitis of rig ht hip(Confirmed) Active Type 2 diabetes with nephropathy(Confirmed) Active Type 2 diabetes mellitus wit h peripheral angiopathy(Confirmed) Active 1educated about use epi pen /when call 2[employer] PERICARDIAL VALVE [facility] 10749 41 graft 5CABG 2002 6Dr nini addressing 7nephrolithiasis 8to workup 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 12giardiam,o/p ,culture neg 13normal IGA/TTG 14workup 15urology addressing [id number] 17ortho 18chronic 19RFA 20djd xray 2-015 21xray [...]
--- OUTSIDE RECORDS SUMMARY | 2023-10-05 09:56 | XMS_ITS | Continuity of Care Document ---
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 Name Role Phone Charisma LENZ, Michael Boston Primary Care Physician [place] [facility] [place] 10[place]21 [facility] [address] [place] [address]- Allergies, Adverse Reactions, Alerts Substance Reaction Severity [...] [facility]# [address] [phone] 2Location History: [place] 3Result Comment: [06/30/2017] HIGH DOSE RECIEVED AT [facility] 4Rrenée Comment: [08/12/2015] [place] [facility] [place] 5Result Comment: Pfizer right deltoid lot [id number] exp 06-06-2021 [facility] 6Admin Note: [...] 09/01/21 11:50:00 EDT, Route to Pharmacy Electronically, [facility], 175, cm, 08/12/21 15:35:00 EDT, Height, 84.1, kg, 06/07/21 4:26:00 EDT,... Start Date: 09/01/21 Status: Ordered amLODIPine 5 mg oral tablet See Instructions, 1/2 at night, # 45 each, Refills 1, Tot. Refills 1, Maintenance, 06/08/21 11:27:00 EDT, Instructions Replace Required Details, Route to Pharmacy Electronically, [id number], 175, cm, 06/07/21 8:16:00 [...] 90 tablet, 1 Refills, 09/01/21 11:50:00 EDT, [facility], 175, cm, 08/12/21 15:35:00 EDT, Height, 84.1, kg, 06/07/21 4:26:00 EDT, Dry Weight Start Date: 09/01/21 Status: Ordered Eliquis 2.5 mg oral tablet 1 tablet, By Mouth, 2 times a day, # 180 tablet, 3 Refills, Maintenance, 03/17/21 11:43:00 EDT, [id number], 175, cm, 02/06/21 10:40:00 EDT, Height, 79, [...] 30 tablet, 0 Refills, Maintenance, 09/30/21 12:40:00EST, [facility], 10/10/21, 175, cm, 09/23/21 12:36:00 EST, Height, 84.1, kg, 06/07/21 4:26:00 EDT, Dry Weight Start Date: 09/30/21 Status: Ordered magnesium oxide 400 mg oral tablet 1 tablet = 400 mg, By Mouth, Daily, # 90 tablet, 3 Refills, Maintenance, 02/12/21 17:31:00 EDT, Tablet, [facility]/pharmacy #[id number], Partial fill upon [...] 90 capsule, 0 Refills, 09/01/21 11:50:00 EDT, [facility], 175, cm, 08/12/21 15:35:00 EDT, Height, 84.1, kg, 06/07/21 4:26:00 EDT, Dry Weight Start Date: 09/01/21 Status: Ordered tamsulosin 0.4 mg oral capsule 1, capsule, By Mouth, Daily at bedtime, # 90 capsule, Refills 1, Tot. Refills 0, Maintenance, 05/08/21 14:24:00 EDT, Route to Pharmacy Electronically, [id number], 175, cm, 04/29/21 10:36:00 EDT,Height, 79, kg, 11/26/20 11:00:00 EST, Dry Weight Start Date: 05/08/21 Status: Ordered thiamine 100 mg oral tablet 100 mg, 1, tablet, By Mouth, Daily, # 30 tablet, Refills 11, Tot. Refills 11, Maintenance, 09/08/2013:24:00 EST, Route to Pharmacy Electronically, [facility]/pharmacy #[id number], 175, cm, 09/08/20 12:47:00 EST,Height, 80.6, kg, 08/05/20 17:31:00 EDT, Dry Weight Start Date: 09/08/20 Status: Ordered traZODone 50 mg oral tablet 25 mg, 0.5, tablet, By Mouth, Daily at bedtime, # 15 tablet, Refills 0, Tot. Refills 0, Maintenance, 09/23/21 13:14:00 EST, Route to Pharmacy Electronically, [facility], Partial fill upon patient [...] Active Anxiety(Confirmed) Active Aortic valve prosthesis pres [id number] TAVR 2017(Confirmed) 2, 3 Active Arteriosclerotic heart [...] 25 Active PAF (paroxysmal atrial fibri llation) [id number] 6(Confirmed) Active 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, 27, 28 Active Restless legs syndrome (RLS)(Confirmed) Active Thrombocytopenia(Confirmed) 29, 30 06/22/09 Active Tricuspid insufficiency(Confirmed) Active Trochanteric bursitis of rig ht hip(Confirmed) Active Type 2 diabetes with nephropathy(Confirmed) Active Type 2 diabetes mellitus wit h peripheral angiopathy(Confirmed) Active 1educated about use epi pen /when call 2[employer] PERICARDIAL VALVE [facility] 33036 41 graft 5CABG 2002 6Dr nini addressing 7nephrolithiasis 8to workup 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 12giardiam,o/p ,culture neg 13normal IGA/TTG 14workup 15urology addressing [id number] 17ortho 18chronic 19RFA 20djd xray 2-015 21xray [...]
--- OUTSIDE RECORDS SUMMARY | 2023-10-05 09:56 | XMS_ITS | Continuity of Care Document ---
Author Name Unknown Organization [facility] ter Address [address] [place] [id number]- Care Team Providers Care Windows Server Architect Name Role Phone Charisma LENZ, Michael Boston Primary Care Physician [phone] Encounter [facility] Date(s): 11/18/20 - 11/21/[address] [id number] Encounter Diagnosis Memory loss(Discharge Diagnosis) - 11/18/20 Discharge Disposition: A-D/C Home Attending Physician: Maria Teresa Mendez MD Admitting Physician: Luisito Hubbard DO Referring Physician: Not on Staff, Referring MD [...] Bradford Comment: [06/30/2017] HIGH DOSE RECIEVED AT [facility] DR Lucero Comment: [08/12/2015] [place] [facility] [place] 4Admin Note: GIVEN IN CLINIC SHAM 5Admin [...] 10/20/20 11:45:00 EST, Route to Pharmacy Electronically, [facility]/pharmacy #[id number], 175, cm, 10/20/20 11:12:00 EST, [...] 180 tablet, 3 Refills, Maintenance, 03/05/20 13:50:00EDT, [facility]/pharmacy #[id number], 176.5, cm, 12/25/19 [...] 3 Refills, Maintenance, 12/17/19 11:48:00 EST, Tablet, [facility]/pharmacy #[id number], Rx resent from [...] EDT, Tablet Start Date: 08/08/20 Status: Ordered MorPHINE Inj 2 mg, Injection, IV Push Slowly, Once, PRN for Pain , Severe, EVA, 11/20/20 23:16:00 EST Start Date: 11/20/20 Stop Date: 11/20/20 Status: Completed omeprazole 20 mg oral delayed release tablet 1 tablet = 20 mg, By Mouth, Daily, # 90 tablet, 3 Refills, Maintenance, 12/17/19 11:48:00 EST, EC Tablet, [facility]/pharmacy #[id number], 176.5, cm, 12/17/19 11:35:00 EST, Height, 83.4, kg, 11/02/18 13:42:00 EST, Dry Weight Start Date: 12/17/19 Status: Ordered predniSONE 10 mg oral tablet See Instructions, 4 tablets daily for 2 days 3 tablets daily for 2 days 2 tablets daily for 2 days 1 tablet daily for 2 days, # 20 tablet, 0 Refills, Maintenance, 11/21/20 11:46:00 EST, Tablet, [facility], Partial fill upon patient re... Start Date: 11/21/20 Status: Ordered tamsulosin 0.4 mg oral capsule 0.4 mg, By Mouth, Daily at bedtime, # 90 capsule, Refills 3, Tot. Refills 3, Maintenance, 12/17/19 11:48:00 EST, Route to Pharmacy Electronically, [facility]/pharmacy #[id number], 176.5, cm, 12/17/19 11:35:00 EST, Height, 83.4, kg, 11/02/18 13:42:00 EST, Dry Weight Start Date: 12/17/19 Status: Ordered thiamine 100 mg oral tablet 100 mg, 1, tablet, By Mouth, Daily, # 30 tablet, Refills 11, Tot. 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) 2, 3 Active Arteriosclerotic heart [...] 25 Active PAF (paroxysmal atrial fibri llation) [id number] 6(Confirmed) Active 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, 27, 28 Active Restless legs syndrome (RLS)(Confirmed) Active Thrombocytopenia(Confirmed) 29, 30 06/22/09 Active Tricuspid insufficiency(Confirmed) Active Trochanteric bursitis of rig ht hip(Confirmed) Active Type 2 diabetes with nephropathy(Confirmed) Active Type 2 diabetes mellitus wit h peripheral angiopathy(Confirmed) Active 1educated about use epi pen /when call 2[employer] [facility] [address] 41 graft 5CABG 2002 6Dr nini addressing 7nephrolithiasis 8to workup 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 12giardiam,o/p ,culture neg 13normal IGA/TTG 14workup 15urology addressing [id number] 17ortho 18chronic 19RFA 20djd xray 2-015 21xray 2004 LS arthritis etc 22BCG 23carcinoma in situ 24saw ortho 25s aw ortho;injected SEVERE pain 26endocrinology addressing 27MRI pti ;refer endo 28mri c spine 2014 29per hematology ? 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;to follow 30workup in progress Diagnosis Diagnosis Type Effective Dates Health Status Clini salas Service Informant Memory loss Discharge Diagnosis 11/18/20 Vital Signs Most recent to oldest [Reference Range]: 1 2 3 Height 175 cm (11/21/20 12:15 PM) 175 cm (11/21/20 9:45 AM) 175 cm (11/21/20 4:05 AM) Weight 79.0 kg (11/18/20 11:32 PM) Oxygen Saturation [94-100 %] 97 % (1/15/21 12:15 PM) 99 % (11/21/20 9:45 AM) 96 % (11/21/20 4:05 AM) Pulse Rate [55-90 bpm] 47 bpm *L* (11/21/20 12:15 PM) 36 bpm *L* (11/21/20 9:45 AM) 41 bpm *L* (11/21/20 4:05 AM) Body Mass Index [18.5-24.99] 25.8 *H* (11/18/20 11:32 PM) Blood Pressure [90-138/55-84 mm Hg] 183/59mm Hg *H* (11/21/20 12:15 PM) 142/55mm Hg *H* (11/21/20 9:45 AM) 152/48mm Hg *H* (11/21/20 4:05 AM) Respiratory Rate [16-30 br/min] 18 br/min (11/21/20 12:15 PM) 20 br/min (11/21/20 9:45 AM) 18 br/min (11/21/20 4:07 AM) Temperature [96.8-100.4 DegF] 97.6 DegF (11/21/20 12:15 PM) 97.5 DegF (11/21/20 9:45 AM) 97.7 DegF (11/21/20 4:05 AM) Mode of Delivery (Oxygen) Room air (11/21/20 12:15 PM) Room air (11/21/20 9:45 AM) Room air (11/21/20 4:05 AM) Blood pressure sites Arm, right (11/21/20 12:15 PM) Arm, left (11/21/20 9:45 AM) Arm, left (11/21/20 4:05 AM) Temperature Route Oral (11/21/20 12:15 PM) Oral (11/21/20 9:45 AM) Oral (11/21/20 4:05 AM) Dry Weight 80.6 kg (11/18/20 11:32 PM) Social History Social History Type Response Smoking Status Former smoker, quit more than 30 days ago entered on: 03/01/19 Sex
--- OUTSIDE RECORDS SUMMARY | 2023-10-05 09:56 | XMS_ITS | Continuity of Care Document ---
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 Cook And Cashier Name Role Phone Ju IT BUSINESS PROCESS ARCHITECT, Giovana Chiu Primary Care Physician Encounter [facility] Date(s): 10/20/22 - 11/19/22 [facility] [place] Adult [address] [place] [address]- Attending Physician: Admtr, Ar8 Allergies, Adverse Reactions, [...] Vaccine Date Status Refusal Reason SARS-CoV-2 mRNA ([id number]) vax 1 04/29/22 Given influenza virus vaccine, [...] Comment: [facility]-[id number] 2Result Comment: [facility]# [address] [phone] 3Location History: [place] 4Resconstance Comment: [06/30/2017] [facility] 5Resconstance Comment: [08/12/2015] [place] [facility] 6Result Comment: Pfizer right deltoid lot [id number] exp 06-06-2021 [facility] 7Admin Note: GIVEN IN CLINIC SHAM [...] 09/05/22 12:57:00 EDT, Route to Pharmacy Electronically, [facility], 175, cm, 07/22/22 14:43:00 EDT, Height, 84.1, kg, 06/07/21 4:26:00 EDT, Dry Weight Start Date: 09/05/22 Status: Ordered amLODIPine 5 mg oral tablet 1 tablet, By Mouth, Daily, # 90 tablet, 1 Refills, Maintenance, 08/07/22 10:52:00 EDT, [facility], 175, cm, 07/22/22 14:43:00 EDT, Height, [...] a day, # 180 tablet, 9 Refills, [facility], 175, cm, 02/09/22 10:10:00 EDT, Height, 84.1, kg, 06/07/21 4:26:00 EDT, Dry Weight Start Date: 02/10/22 Status: Ordered LORazepam 1 mg oral tablet 1 tablet = 1 mg, By Mouth, Daily at bedtime, 11/09 delivery Tuesday10/08/22, start taking Sat 10/09/22.12/10 delivery Tuesday11/08/2201/07 delivery Tuesday12/08/22, # 30 tablet, 2 Refills, Maintenance, 10/05/22 14:25:00 EST, [facility]... Start Date: 10/05/22 Status: Ordered magnesium oxide 400 mg oral tablet 1 tablet, By Mouth, Daily, # 90 tablet, 1 Refills, Maintenance, 08/09/22 9:27:00 EDT, [facility], 175, cm, 07/22/22 14:43:00 EDT, Height, 84.1, kg, 06/07/21 4:26:00 EDT, Dry Weight Start Date: 08/09/22 Status: Ordered magnesium oxide 400 mg oral tablet 1 tablet, By Mouth, Daily, # 90 tablet, 11 Refills, Maintenance, 08/09/22 9:27:00 EDT, [facility], 175, cm, 07/22/22 14:43:00 EDT, Height, [...] Start Date: 05/05/22 Status: Ordered nystatin topical 202521 u/gm powder 1 application, Topically, 2 times a day, # 60 Gm, 5 Refills, Maintenance, 01/14/22 10:20:00 EST, Powder, [facility], Partial fill upon patient request if the prescription is for a schedule II opioid drug., 1 application Topically... Start Date: 01/14/22 Status: Ordered omeprazole 20 mg oral enteric coated capsule 1 capsule, By Mouth, Daily, # 90 capsule, 0 Refills, Maintenance, 08/07/22 10:53:00 EDT, [facility], 175, cm, 07/22/22 14:43:00 EDT, Height, 84.1, kg, 06/07/21 4:26:00 EDT, Dry Weight Start Date: 08/07/22 Status: Ordered tamsulosin 0.4 mg oral capsule 1, capsule, By Mouth, Daily at bedtime, # 90 capsule, Refills 1, Tot. Refills 1, 05/13/22 12:10:00 EDT, Route to Pharmacy Electronically, [facility], 175, cm, 05/12/22 13:46:00 EDT, Height, [...] 08/09/22 9:27:00 EDT, Route to Pharmacy Electronically, [facility], 175, cm, 07/22/22 14:43:00 EDT, Height, 84.1, kg, 06/07/21 4:26:00 EDT, Dry Weight Start Date: 08/09/22 Status: Ordered Vitamin B1 100 mg oral tablet 1, tablet, By Mouth, Daily, # 30 tablet, Refills 11, Maintenance, 08/09/22 9:27:00 EDT, Route to Pharmacy Electronically, [facility], 175, cm, 07/22/22 14:43:00 EDT, Height, [...] Active Anxiety Confirmed Active Aortic valve prosthesis [id number] TAVR 2017 2, 3 Confirmed Active Arteriosclerotic [...] (congestive heart failure) systolic Confirmed Active 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 12giardiam,o/p ,culture neg 13normal IGA/TTG 14workup 15urology addressing [id number] 17ortho 18chronic 19RFA 20djd xray 2-015 21xray [...] 30 days ago entered on: 03/01/19 Sex EKG study * Event Display: EKG Authored Date: * Event Display: EKG Authored Date: * Event Display: EKG Authored Date: Note * Event Display: Consult Note Cardiac Rehab Authored Date: * Event Display: X-Ray Hip/Groin Authored Date: * Event Display: Non BH Lab Results Authored Date: * Sue Griffin: PERFORM Event Display: Radiology Results Scanned Authored Date: * Alis Hooks: PERFORM Event Display: Radiology Results Scanned Authored Date: * Maris Elliott: PERFORM Event Display: Laboratory Results Scanned Authored Date: * Sue Griffin: PERFORM Event Display: Radiology Results Scanned Authored Date: * Sue Griffin: PERFORM Event Display: Laboratory Results Scanned Authored Date: * Sue Griffin: PERFORM Event Display: Discharge/Transfer Note Hospital Authored Date: XR Spine Views * Event Display: X-Ray Spine Authored Date: Patient Care team information Care Team Personnel Name: Raina Westbrook RN Position: [facility] RN Member Role: Primary Care Nurse Name: Giovana Dodd NP Position: [facility] PCO Associate Professional Member Role: PCP Address: Address: [address] [place] [id number]- [place] Name: Adam Dennis MD Position: [facility] Cardiology MD Member Role: Lifetime Consulting Physician Address: Address: [address] [place] [phone]- [place] Name: Jo Dillon RN Position: [facility] RN Member Role: Primary Care Nurse Name: Anh Pires RN Position: S RN Member Role: Primary Care Nurse Name: Lonnie Puente Position: S RN Member Role: Primary Care Nurse Name: Julia Khan RN Position: [facility] RN Member Role: Primary Care Nurse Name: Jaqueline Johnson RN Position: S RN Member Role: Primary Care Nurse Name: Kathy Garcia RN Position: [facility] RN Member Role: Primary Care Nurse Name: Viki Collazo RN Position: [facility] RN Member Role: Primary Care Nurse Care Team Related Persons Name: SARWAT HENRIQUEZ Address: [address] [place] [address] Name: JOSEFINA CONTRERAS Address: home [address] [place] [address]
--- OUTSIDE RECORDS SUMMARY | 2023-10-05 09:56 | XMS_ITS | Continuity of Care Document ---
Author Name Unknown Organization [facility] [place] Address [address] [place] [address]- Care Team Providers Care Property Coordinator Name Role Phone Michael Zafar MD Primary Care Physician Encounter [facility] [id number] Date(s): 06/24/21 - 07/01/21 [facility] Adult [address] [place] [address]- Encounter Diagnosis Benign Essential Hypertension(Discharge Diagnosis) - 06/24/21 Chronic gout(Discharge Diagnosis) - 06/24/21 Localized swelling of left foot(Discharge Diagnosis) - 06/24/21 Attending Physician: Michael Zafar MD Allergies, Adverse [...] Given 1Result Comment: Pfizer right deltoid lot [id number] exp 06-06-2021 [facility] 2Location History: [place] 3Rrenée Comment: [06/30/2017] HIGH DOSE RECIEVED AT [facility] 4Rrenée Comment: [08/12/2015] Received at [facility] [place] 5Admin Note: GIVEN IN CLINIC SHAM 6Admin [...] 03/25/21 10:33:00 EDT, Route to Pharmacy Electronically, [facility]/pharmacy #[id number], 175, cm, 03/20/21 12:09:00 EDT, Height, 79, [...] tablet, 3 Refills, Maintenance, 03/17/21 11:43:00 EDT[id number], cm, 02/06/21 10:40:00 EDT, Height, 79, [...] Route to Pharmacy Electronically, [facility]/... Start Date: 12/17/19 Status: Ordered [...] 1 Refills, Maintenance, 02/07/21 22:44:00 EDT, Tablet, [facility]/pharmacy #[id number], Rx resent from 11/03/16., 175, cm, 02/06/21 10:40:00 EDT, Height,79, kg, 11/26/20 11:00:00 EST, Dry Weight Start Date: 02/07/21 Status: Ordered LORazepam 1 mg oral tablet 1 tablet = 1 mg, By Mouth, Daily at bedtime, # 30 tablet, 0 Refills, Maintenance, 06/08/21 11:59:00EDT, [facility]/pharmacy #[id number], 175, cm, [...] capsule, 0 Refills, Maintenance, 05/11/21 7:24:00 EDT, [facility]/pharmacy #[id number], Rx resent from 05/08/21., 175, cm, 04/29/21 10:36:00 EDT, Height, 79, kg, 11/26/20 11:00:00 EST, Dry Weight Start Date: 05/11/21 Status: Ordered tamsulosin 0.4 mg oral capsule 1, capsule, By Mouth, Daily at bedtime, # 90 capsule, Refills 1, Tot. Refills 0, Maintenance, 05/08/21 14:24:00 EDT, Route to Pharmacy Electronically, [id number], 175, cm, 04/29/21 10:36:00 EDT,Height, 79, kg, [...] Active Anxiety(Confirmed) Active Aortic valve prosthesis pres [id number] TAVR 2017(Confirmed) 2, 3 Active Arteriosclerotic heart [...] 25 Active PAF (paroxysmal atrial fibri llation) [id number] 6(Confirmed) Active 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, 27, 28 Active Restless legs syndrome (RLS)(Confirmed) Active Thrombocytopenia(Confirmed) 29, 30 06/22/09 Active Tricuspid insufficiency(Confirmed) Active Trochanteric bursitis of rig ht hip(Confirmed) Active Type 2 diabetes with nephropathy(Confirmed) Active Type 2 diabetes mellitus wit h peripheral angiopathy(Confirmed) Active 1educated about use epi pen /when call 2[employer] VAL[employer] [facility] [address] 41 graft 5CABG 2002 6Dr nini addressing 7nephrolithiasis 8to workup 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 12giardiam,o/p ,culture neg 13normal IGA/TTG 14workup 15urology addressing [id number] 17ortho 18chronic 19RFA 20djd xray 2-015 21xray 2004 LS arthritis etc 22BCG 23carcinoma in situ 24saw ortho 25s aw ortho;injected SEVERE pain 26endocrinology addressing 27MRI pti ;refer endo 28mri c spine 2014 29per hematology ? 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;to follow 30workup in progress Diagnosis Diagnosis Type Effective Dates Health Status Clinical Service Informant Benign Essential Hypertension Discharge Diagnosis 06/24/21 Chronic gout Discharge Diagnosis 06/24/21 Localized swelling of left foot Discharge Diagnosis 06/24/21 Vital Signs Most recent to oldest [Reference Range]: 1 Height 175 cm (06/24/21 11:04 AM) Weight 86 kg (06/24/21 11:04 AM) Oxygen Saturation [94-100 %] 97 % (06/24/21 11:04 AM) Pulse Rate [55-90 bpm] 86 bpm (06/24/21 11:04 AM) Body Mass Index [18.5-24.99] 28.08 *H* (06/24/21 11:04 AM) Blood Pressure [90-138/55-84 mm Hg] 136/ 60mm Hg (06/24/21 11:04 AM) Respiratory Rate [16-30 br/min] 16 br/mi n (06/24/21 11:04 AM) Blood pressure sites Arm, left (06/24/21 11:04 AM) Social History Social History Type Response Smoking Status Former smoker, quit more than 30 days ago entered on: 03/01/19 Sex
--- OUTSIDE RECORDS SUMMARY | 2023-10-05 09:57 | XMS_ITS | Continuity of Care Document ---
Author Name Unknown Organization [facility] [place] Address [address] [place] [address]- Care Team Providers Care Contract Implementation Analyst Name Role Phone Charisma LENZ, Michael Boston Primary Care Physician [phone] [place] [facility]20 - 07/20/20 [facility] [address] [place] [address]- [facility] Attending Physician: Admtr, Ar8 Allergies, Adverse [...] 3Rrenée Comment: [06/30/2017] HIGH DOSE RECIEVED AT [facility] 4Rrenée Comment: [08/12/2015] Received at [facility] [place] 5Admin Note: given [...] 2 times a day, # 6 LOT [id number] EXP 2-21, # 180 tablet, 0 Refills, Maintenance, 06/13/20 11:45:00 EDT, Dry Weight Start Date: 06/13/20 Status: Ordered apixaban 2.5 mg oral tablet 1 tablet = 2.5 mg, By Mouth, 2 times a day, # 180 tablet, 3 Refills, Maintenance, 03/05/20 13:50:00EDT, [facility]/pharmacy #[id number], 176.5, cm, 12/25/19 15:48:00 [...] Gm, 0 Refills, Maintenance, 10/10/19 11:35:05 EST, [place], 1 sprays Nares, Both 2 times a [...] 3 Refills, Maintenance, 12/17/19 11:48:00 EST, Tablet, [facility]/pharmacy #[id number], Rx resent from 11/03/16., 176.5, cm, 12/17/19 11:35:00 EST, Height, 83.4, kg, 11/02/18 13:42:00 EST, Dry Weight Start Date: 12/17/19 Status: Ordered LORazepam 2 mg oral tablet 1 tablet = 2 mg, By Mouth, 2 times a day, # 60 tablet, 0 Refills, Maintenance, 06/16/20 13:49:00 EDT, [facility]/pharmacy #[id number], 176.5, cm, 06/13/20 12:04:00 EDT, Height, 83.4, kg, 11/02/18 13:42:00 EST, Dry Weight Start Date: 06/16/20 Status: Ordered magnesium oxide 400 mg oral tablet 1 tablet = 400 mg, By Mouth, 2 times a day, # 60 tablet, 3 Refills, Maintenance, 06/16/20 11:54:00 EDT, [facility]/pharmacy #[id number], 176.5, cm, 06/13/20 12:04:00 EDT, Height, 83.4, kg, 11/02/18 13:42:00 EST, Dry Weight Start Date: 06/16/20 Status: Ordered metoprolol 25 mg oral tablet, extended release 25 mg, 1, tablet, By Mouth, Daily, # 90 tablet, Refills 3, Tot. Refills 3, Maintenance, 06/16/20 9:41:00 EDT, Route to Pharmacy Electronically, [facility]/pharmacy #[id number], succinate, 176.5, cm, 06/13/20 12:04:00 EDT, Height, 83.4, kg, 11/02/18 13:42:00 EST, D... Start Date: 06/16/20 Stop Date: 06/11/21 Status: Ordered omeprazole 20 mg oral delayed release tablet 1 tablet = 20 mg, By Mouth, Daily, # 90 tablet, 3 Refills, Maintenance, 12/17/19 11:48:00 EST, EC Tablet, [facility]/pharmacy #[id number], 176.5, cm, 12/17/19 11:35:00 EST, Height, 83.4, kg, 11/02/18 13:42:00 EST, Dry Weight Start Date: 12/17/19 Status: Ordered tamsulosin 0.4 mg oral capsule 0.4 mg, By Mouth, Daily at bedtime, # 90 capsule, Refills 3, Tot. Refills 3, Maintenance, 12/17/19 11:48:00 EST, [id number] 176.5, cm, 12/17/19 11:35:00 EST, [...] Active Anxiety(Confirmed) Active Aortic valve prosthesis pres [id number] TAVR 2018(Confirmed) 2, 3 Active Arteriosclerotic heart [...] 26 Active PAF (paroxysmal atrial fibri llation) [id number] 6(Confirmed) Active Pituitary microadenoma(Confi rmed) 27, 28, 29 Active Restless legs syndrome (RLS)(Confirmed) Active Thrombocytopenia(Confirmed) 30, 31 06/22/09 Active Tricuspid insufficiency(Confirmed) Active Trochanteric bursitis of rig ht hip(Confirmed) Active Type 2 diabetes with nephropathy(Confirmed) Active Type 2 diabetes mellitus wit h peripheral angiopathy(Confirmed) Active 1educated about use epi pen /when call 2[employer] VALVE [facility] [address] 41 graft 5CABG 2002 6Dr nini addressing 7nephrolithiasis 8to workup 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 12giardiam,o/p ,culture neg 13normal IGA/TTG 14workup 15urology addressing [id number] 17ortho 18chronic 19RFA 20djd xray 2-015 21xray 2004 LS arthritis etc 22Zung=mod depression 23BCG 24carcinoma in situ 25saw ortho 26s aw ortho;injected SEVERE pain 27endocrinology addressing 28MRI pti ;refer endo 29mri c spine 2014 30per hematology ? 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;to follow 31workup in progress Procedures Procedure Date Related Diagnosis [...]
--- OUTSIDE RECORDS SUMMARY | 2023-10-05 09:57 | XMS_ITS | Continuity of Care Document ---
Author Name Unknown Organization [facility] Anders Bradley Tom lt Address [address] [place] [address]- Care Team Providers Care [employer] Social Science Teacher Name Role Phone Leo Breen DO Primary Care Physician Encounter [facility] Date(s): 06/15/23 - 07/15/23 [facility] Adult [address] [place] [address]- Allergies, Adverse Reactions, Alerts Substance Reaction Severity Status lisinopril 1, 2 Active Bee Stings Active carvedilol 3 Active citalopram dizzy Active Percocet vomiting Active Effexor dizziness Active Remeron 4 dizziness Active Lactose 5, 6 diarrhea Active FLUoxetine dizziness Active Welchol muscle and joint aches Activ e Percocet 5/325 7 Active traZODone Active 1cough [...] vaccine, inactivated 11/27/10 Give n SARS-CoV-2 mRNA (cslpmtv-tevm-tjzlv) vax 6 04/29/22 Given SARS-CoV-2 (COVID-19) mRNA [...] Pneumococcal Vaccine (oldterm) 11/07/98 Given 1Result Comment: [id number] 2Result Comment: [facility]# ON [address] [phone] [facility] 4Result Comment: [06/30/2017] HIGH DOSE RECIEVED AT [facility] 5Resconstance Comment: [08/12/2015] Received at [facility] [place] [place] 6Result Comment: [facility]-[id number] 7Result Comment: Pfizer right deltoid lot [id number] exp 06-06-2021 [facility] 8Admin Note: GIVEN IN CLINIC SHAM [...] 04/07/23 14:29:00 EDT, Route to Pharmacy Electronically, [facility], 175, cm, 03/16/23 12:17:00 EDT, Height, 84.1, kg, 06/07/21 4:26:00 EDT, Dry Weight Start Date: 04/07/23 Status: Ordered amLODIPine 5 mg oral tablet 1 tablet, By Mouth, Daily, # 90 tablet, 1 Refills, Maintenance, 07/05/23 13:28:00 EDT, [facility], 175, cm, 06/13/23 13:20:00 EDT, Height [...] tablet, 1 Refills, Maintenance, 05/13/23 10:04:00 EDT, [facility], 175, cm, 04/12/23 11:54:00 EDT, Height, 84.1, kg, 06/07/21 4:26:00 EDT, Dry Weight Start Date: 05/13/23 Status: Ordered Eliquis 2.5 mg oral tablet 1 tablet, By Mouth, 2 times a day, # 180 tablet, 9 Refills, 02/18/23 17:26:00 EDT, [facility], 175, cm, 01/24/23 11:05:00 EDT, Height, [...] Replace Required Details, Route to Pharmacy Electronically, [facility], 175, cm, 06/13/23... Start Date: 06/17/23 Status: Ordered LORazepam 0.5 mg oral tablet See Instructions, take as directed altrating with 1mg dose, # 12 each, 1 Refills, Maintenance, 06/13/23 13:29:00 EDT, Tablet, [facility], starting to wean down Partial fill upon patient request if the prescription is for a schedul... Start Date: 06/13/23 Status: Ordered LORazepam 1 mg oral tablet 1 tablet = 1 mg, By Mouth, Daily at bedtime, PRN as needed for anxiety, taper as directed, # 30 tablet, 1 Refills, Maintenance, 06/16/23 8:19:00 EDT, [facility], 175, cm, 06/13/2313:20:00 EDT, Height Start Date: 06/16/23 Status: Ordered magnesium oxide 400 mg oral tablet 1 tablet, By Mouth, Daily, # 90 tablet, 11 Refills, Maintenance, 08/09/22 9:27:00 EDT, [facility], 175, cm, 07/22/22 14:43:00 EDT, Height, 84.1, kg, 06/07/21 4:26:00 EDT, Dry Weight Start Date: 08/09/22 Status: Ordered nystatin topical 429374 u/gm powder 1 application, Topically, 2 times a day, # 60 Gm, 1 Refills, Maintenance, 04/08/23 10:05:00 EDT, Powder, [facility], 1 application Topically 2 times a day, 175, cm, 03/16/23 12:17:00 EDT, Height, 84.1, kg, 06/07/21 4:26:00 EDT, . Start Date: 04/08/23 Status: Ordered omeprazole 20 mg oral enteric coated capsule 1 capsule, By Mouth, Daily, # 90 capsule, 1 Refills, Maintenance, 06/13/23 13:22:00 EDT, [facility], 175, cm, 06/13/23 13:20:00 EDT, Height Start Date: 06/13/23 Status: Ordered tamsulosin 0.4 mg oral capsule 1, capsule, By Mouth, Daily at bedtime, # 90 capsule, Refills 1, Maintenance, 05/13/23 10:04:00 EDT, Route to Pharmacy Electronically, [facility], 175, cm, 04/12/23 11:54:00 EDT,Height, 84.1, kg, 06/07/21 4:26:00 EDT, Dry Weight Start Date: 05/13/23 Status: Ordered Vitamin B1 100 mg oral tablet 1, tablet, By Mouth, Daily, # 30 tablet, Refills 11, Maintenance, 08/09/22 9:27:00 EDT, Route to Pharmacy Electronically, [facility], 175, cm, 07/22/22 14:43:00 EDT, Height, [...] Active Anxiety Confirmed Active 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 11giardiam,o/p ,culture neg 12normal IGA/TTG 13workup 640015 15chronic 16RFA 17djd xray 2-015 18xray 2004 [...] Team Personnel Name: Giovana Dodd NP Position: [facility] PCO Associate Professional Member Role: Lifetime Consulting Provider Address: Address: [address] [place] [address]- [place] Name: Adam Dennis MD Position: [facility] Cardiology MD Member Role: Lifetime Consulting Physician Address: Address: [address] [place] [address]- [place] Name: Julia Yu RN Position: S RN Member Role: Primary Care Nurse Name: Jo Dillon RN Position: [facility] RN Member Role: Primary Care Nurse Name: Anh Pires RN Position: S RN Member Role: Primary Care Nurse Name: Lonnie Puente RN Position: [facility] RN Member Role: Primary Care Nurse Name: Jaqueline Johnson RN Position: [facility] RN Member Role: Primary Care Nurse Name: Deb Brito Position: [facility] MA Sample Shoe Inspector And Reworker Member Role: Geological Scout Name: Leo Breen DO Position: [facility] Physician - Primary Care Member Role: PCP Address: Address: [address] [place] [address]- Name: Vale CHUN, Viki Eduardo Position: [facility] RN Member Role: Primary Care Nurse Care Team Related Persons Name: SARWAT HENRIQUEZ Address: home [address] [place] [address] Name: JOSEFINA CONTRERAS Address: home [address] [place] [address]
--- OUTSIDE RECORDS SUMMARY | 2023-10-05 09:57 | XMS_ITS | Continuity of Care Document ---
Author Name Unknown Organization [facility] Tom lt Address [address] [place] [address]- Care Team Providers Care Actuarial Associate Name Role Phone Giovana Dodd NP Primary Care Physician Encounter [facility] Date(s): 01/24/23 - 01/31/23 [facility] Adult [address] [place] [address]- Encounter Diagnosis Benign Essential Hypertension(Discharge Diagnosis) - 01/20/23 Hyperlipidemia(Discharge Diagnosis) - 01/20/23 PAF (paroxysmal atrial fibrillation) [id number] 6(Discharge Diagnosis) - 01/20/23 Insomnia(Discharge Diagnosis) - 01/24/23 Type 2 diabetes mellitus with peripheral angiopathy(Discharge Diagnosis) - 01/20/23 Type 2 diabetes with nephropathy(Discharge Diagnosis) - 01/20/23 BPH without urinary obstruction(Discharge Diagnosis) - 01/24/23 GERD(Discharge Diagnosis) - 01/24/23 Arteriosclerotic heart disease (ASHD) cabg 2002;x1(Discharge Diagnosis) - 01/20/23 Cardiac pacemaker(Discharge Diagnosis) - 01/24/23 History of lacunar cerebrovascular accident MRI 2020(Discharge Diagnosis) - 01/24/23 Chronic anticoagulation(Discharge Diagnosis) - 01/20/23 Attending Physician: Not on Staff, Attending MD Referring Physician: Giovana Dodd NP Allergies, [...] vaccine, inactivated 11/27/10 Give n SARS-CoV-2 mRNA ([id number]-[id number]-[id number]) vax 5 04/29/22 Given SARS-CoV-2 (COVID-19) mRNA [...] Pneumococcal Vaccine (oldterm) 11/07/98 Given 1Result Comment: [facility]# [address] [phone] 2Location History: [place] 3Result Comment: [06/30/2017] [facility] [address] 4Result Comment: [08/12/2015] Received at [facility] [place] 5Result Comment: [facility]-[id number] 6Result Comment: Jose right deltoid lot [id number] exp 06-06-[facility] 7Admin Note: GIVEN IN CLINIC SHAM 8Admin [...] 09/05/22 12:57:00 EDT, Route to Pharmacy Electronically, [facility], 175, cm, 07/22/22 14:43:00 EDT, Height, 84.1, kg, 06/07/21 4:26:00 EDT, Dry Weight Start Date: 09/05/22 Status: Ordered amLODIPine 5 mg oral tablet 1 tablet, By Mouth, Daily, # 90 tablet, 1 Refills, Maintenance, 08/07/22 10:52:00 EDT, [facility], 175, cm, 07/22/22 14:43:00 EDT, Height, [...] 90 tablet, 1 Refills, 11/24/22 14:41:00 EST, [facility], 175, cm, 09/29/22 12:43:00 EST, Height, 84.1, kg, 06/07/21 4:26:00 EDT, Dry Weight Start Date: 11/24/22 Status: Ordered Eliquis 2.5 mg oral tablet 1 tablet, By Mouth, 2 times a day, # 180 tablet, 9 Refills, [facility], 175, cm, 02/09/22 10:10:00 EDT, Height, 84.1, kg, 06/07/21 4:26:00 EDT, Dry Weight Start Date: 02/10/22 Status: Ordered LORazepam 1 mg oral tablet 1 tablet = 1 mg, By Mouth, Daily at bedtime, 11/09 - 01/07/2312/10 delivery Tuesday02/04/23, start taking02/06/2301/07 - 03/08/23, # 30 tablet, 2 Refills, Maintenance, 11/24/22 14:36:00 EST, [facility], 175, cm, 09/29/22 12:43:00 EST... Start Date: 11/24/22 Status: Ordered magnesium oxide 400 mg oral tablet 1 tablet, By Mouth, Daily, # 90 tablet, 11 Refills, Maintenance, 08/09/22 9:27:00 EDT, [facility], 175, cm, 07/22/22 14:43:00 EDT, Height, 84.1, kg, 06/07/21 4:26:00 EDT, Dry Weight Start Date: 08/09/22 Status: Ordered Melatonin Daily at bedtime, 0 Refills, Maintenance, 01/24/23 11:27:00 EDT Start Date: 01/24/23 Status: Ordered nystatin topical 301130 u/gm powder 1 application, Topically, 2 times a day, # 60 Gm, 5 Refills, Maintenance, 01/14/22 10:20:00 EST, Powder, [facility], Partial fill upon patient request if the prescription is for a schedule II opioid drug., 1 application Topically... Start Date: 01/14/22 Status: Ordered omeprazole 20 mg oral enteric coated capsule 1 capsule, By Mouth, Daily, # 90 capsule, 0 Refills, Maintenance, 11/24/22 14:41:00 EST, [facility], 175, cm, 09/29/22 12:43:00 EST, Height, 84.1, kg, 06/07/21 4:26:00 EDT, Dry Weight Start Date: 11/24/22 Status: Ordered tamsulosin 0.4 mg oral capsule 1, capsule, By Mouth, Daily at bedtime, # 90 capsule, Refills 1, Tot. Refills 1, 11/24/22 14:41:00 EST, Route to Pharmacy Electronically, [facility], 175, cm, 09/29/22 12:43:00 EST, Height, 84.1, kg, 06/07/21 4:26:00 EDT, Dry Weight Start Date: 11/24/22 Status: Ordered Vitamin B1 100 mg oral tablet 1, tablet, By Mouth, Daily, # 30 tablet, Refills 11, Maintenance, 08/09/22 9:27:00 EDT, Route to Pharmacy Electronically, [facility], 175, cm, 07/22/22 14:43:00 EDT, Height, [...] Active Anxiety Confirmed Active Aortic valve prosthesis [id number] TAVR 2017 2, 3 Confirmed Active Arteriosclerotic [...] Confirmed 07/22/22 Active PAF (paroxysmal atrial fibrillation) [id number] 6 Confirmed Active Pituitary microadenoma 26, 27, [...] pen /when call 2CARPENTIER PERICARDIAL VALVE [facility] 18597 41 graft 5CABG 2002 6Dr nini addressing 7nephrolithiasis 8to workup 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 12giardiam,o/p ,culture neg 13normal IGA/TTG 14workup 15urology addressing [id number] 17ortho 18chronic 19RFA 20djd xray 2-015 21xray 2004 LS arthritis etc 22BCG 23carcinoma in situ 24saw ortho 25s aw ortho;injected SEVERE pain 26endocrinology addressing 27MRI pti ;refer endo 28mri c spine 2014 29per hematology ? 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;to follow 30workup in progress Diagnosis Diagnosis Type Effective Dates Health Status Clinical Service Informant Benign Essential Hypertension Discharge Diagnosis 01/20/23 Hyperlipidemia Discharge Diagnosis 01/20/23 PAF (paroxysmal atrial fibrillation) [id number] 6 Discharge Diagnosis 01/20/23 Arteriosclerotic heart disease (ASHD) cabg 2002;x1 Discharge Diagnosis 01/20/23 Chronic anticoagulation Discharge Diagnosis 01/20/23 Type 2 diabetes mellitus with peripheral angiopathy Discharge Diagnosis 01/20/23 Type 2 diabetes with nephropathy Discharge Diagnosis 01/20/23 Cardiac pacemaker Discharge Diagnosis 01/24/23 Insomnia Discharge Diagnosis 01/24/23 History of lacunar cerebrovascular accident MRI 2020 Discharge Diagnosis 01/24/23 BPH without urinary obstruction Discharge Diagnosis 01/24/23 GERD Discharge Diagnosis 01/24/23 Vital Signs Most recent to oldest [Reference Range]: 1 Height 175 cm (01/24/23 11:05 AM) Weight 87 kg (01/24/23 11:05 AM) Oxygen Saturation [94-100 %] 98 % (01/24/23 11:05 AM) Pulse Rate [55-90 bpm] 81 bpm (01/24/23 11:05 AM) Body Mass Index [18.5-24.99 kg/m2] 28.41 kg/m2 *H* (01/24/23 11:05 AM) Blood Pressure [90-138/55-84 mm Hg] 134/ 80mm Hg (01/24/23 11:05 AM) Mode of Delivery (Oxygen) Room air (01/24/23 11:05 AM) Blood pressure sites Arm, right (01/24/23 11:05 AM) Weight Obtained Via Standing scale (01/24/23 11:05 AM) Social History Social History Type Response Smoking Status Former smoker, quit more than 30 days ago; Type: Cigarettes; Type: Cigars entered on: 01/24/23 Sex Note * Seble Campoverde: PERFORM, SIGN, VERIFY Event Display: Patient Education/Instruction Authored Date: [facility] *MIKHAIL Newman Clinical Summary Name SHADI SWAN Age 87 Years 1935 PCP Ju KEVIN, Giovana Chiu PCP Visit Date 01/24/2023 10:55:00 Additional Instructions: Scheduled Appointments?? Future Appointments ?*[facility]??Cardiology1 ?Phone:??--?Fax:??-- ?Appt. Date:??03/07/2023?7:40 AM ?Scheduled Provider:??Device Interrogation ?*BMP??So??[facility]Adlt [address],??[address] ?Phone:??--?Fax:??-- ?Appt. Date:??04/12/2023?11:50 AM ?Scheduled Provider:??Giovana Dodd NP. Follow-Up Instructions ?? With: Address: When: Giovana Dodd NP In 3 months Diagnosis MCC (current) use of anticoagulants; Hyperlipidemia, unspecified; Atherosclerotic heart disease of [place] coronary artery without angina pectoris; Paroxysmal atrial fibrillation; Presence of cardiac pacemaker; Type 2 diabetes mellitus with diabetic peripheral angiopathy without gangrene; Type2 diabetes mellitus with diabetic nephropathy; Insomnia, unspecified; Personal history of transientischemic attack (TIA), and cerebral infarction without residual deficits; Essential (primary) hypertension Medications: Please continue your medications until treatment [...] tab(s) Oral Daily at Bedtime. 11/09 - 01/07/2312/10 delivery Tuesday02/04/23, start taking 02/06/2301/07 - 03/08/23. Refills: 2. Next Dose: Magnesium Oxide (magnesium oxide 400 mg oral tablet) 1 tab(s) Oral Daily. Refills: 11. Next Dose: Melatonin Daily at Bedtime. Next Dose: Nystatin Topical (nystatin topical 702983 u/gm powder) 1 venancio Topically twice a [...] orders Vital Signs Height 175 cm Weight 87 kg BMI 28.41 kg/m2 Blood Pressure 134 mm Hg/80 mm Hg Temperature Pulse Rate 81 bpm Respiratory Rate 02 Sat Mode of Delivery 98 %/Room air You can now view a summary of your hospital visit from the comfort of your home through a free online portal called [employer] is a website that allows you to securely view your medical information including discharge summary, medications and follow-up visits. ??You can alsosend a secure electronic message to your doctor???s office to request appointments, renew medications or just ask a question. You can enroll at [email or web address] or register during your next office visit. [...] primary care provider, you may find a [facility] provider by calling [facility] tu.nr Link at [phone]. For information about the plan of care including goals and instructions for your diagnosis, please see the patient education orders section of this document. Patient Education Materials?? The content of this educational material or handout may have been modified, supplemented, or adapted from its original content and format to support your individualized medical care. Patient Care team information Care Team Personnel Name: Ju O AND M SUPERVISORGiovana Position: [facility] PCO Associate Professional Member Role: PCP Address: Address: [address] [place] [address]- [place] Name: Adam Dennis MD Position: [facility] Cardiology MD Member Role: Lifetime Consulting Physician Address: Address: [address] [place] [address] [address] [place] [address]- [place] Name: Julia Yu RN Position: S RN Member Role: Primary Care Nurse Name: Jo Dillon RN Position: S RN Member Role: Primary Care Nurse Name: Anh Pires RN Position: S RN Member Role: Primary Care Nurse Name: Lonnie Puente Position: S RN Member Role: Primary Care Nurse Name: Jaqueline Johnson RN Position: [facility] RN Member Role: Primary Care Nurse Name: Kathy Garcia RN Position: S RN Member Role: Primary Care Nurse Name: Viki Collazo RN Position: S RN Member Role: Primary Care Nurse Care Team Related Persons Name: SARWAT HENRIQUEZ Address: [address] [place] [address] Name: JOSEFINA CONTRERAS Address: home [address] [place] [address]
--- OUTSIDE RECORDS SUMMARY | 2023-10-05 09:57 | XMS_ITS | Continuity of Care Document ---
Author Name Unknown Organization [facility] Tom lt Address [address] [place] [address]- Care Team Providers Care Strap Buckler Name Role Phone Michael Zafar MD Primary Care Physician [phone] Encounter [facility] Date(s): 12/25/19 - 01/01/20 [facility] Adult [address] [place] [address]- [place] Encounter Diagnosis Foot pain, bilateral(Discharge Diagnosis) - 12/25/19 Attending Physician: Michael Zafar MD Allergies, Adverse [...] 3Rrenée Comment: [06/30/2017] HIGH DOSE RECIEVED AT [facility] 4Rrenée Comment: [08/12/2015] Received at [facility] 5Admin Note: given in clinic 6Admin Note: [...] mg, By Mouth, 2 times a day, LOT # [id number] EXP 12/28 X8 BOX, # 60 tablet, 0 Refills,Maintenance, 12/17/19 11:21:00 EST Start Date: 12/17/19 Status: Ordered aspirin 81 mg oral tablet 1 tablet = 81 mg, By Mouth, Daily, # 90 tablet, 3 Refills, 1 tablet By Mouth Daily,x90 days Start Date: 10/26/13 Stop Date: 10/21/14 Status: Ordered Flonase 50 mcg/inh nasal spray 1 sprays, Nares, Both, 2 times a day, # 16 Gm, 0 Refills, Maintenance, 10/10/19 11:35:05 EST, [place], 1 sprays Nares, Both 2 times a [...] Route to Pharmacy Electronically, [facility]/... Start Date: 12/17/19 Status: [...] 3 Refills, Maintenance, 12/17/19 11:48:00 EST, Tablet, [facility]/pharmacy #[id number], Rx resent from 11/03/16., 176.5, cm, 12/17/19 11:35:00 EST, Height, 83.4, kg, 11/02/18 13:42:00 EST, Dry Weight Start Date: 12/17/19 Status: Ordered LORazepam 2 mg oral tablet 1 tablet = 2 mg, By Mouth, 2 times a day, # 60 tablet, 0 Refills, Maintenance, 12/17/19 11:46:00 EST, [id number], 176.5, cm, 12/17/19 11:35:00 EST, Height, 83.4, kg, 11/02/18 13:42:00 EST, Dry Weight Start Date: 12/17/19 Status: Ordered metoprolol 25 mg oral tablet 25 mg, 1, tablet, By Mouth, Daily, # 90 tablet, Refills 3, Tot. Refills 3, Maintenance, 12/18/19 13:53:00 EST, Route to Pharmacy Electronically, [facility]/pharmacy #[id number], succinate, 176.5, cm, 12/17/19 11:35:00 EST, Height, 83.4, kg, 11/02/18 13:42:00 EST,... Start Date: 12/18/19 Status: Ordered metoprolol 25 mg oral tablet 25 mg, 1, tablet, By Mouth, Daily, for 90 days, # 90 tablet, Refills 3, Tot. Refills 3, Hard Stop 10/30/20 12:58:00 EST, 11/05/19 12:58:00 EST, [id number] 176.5, cm, 10/23/19 15:57:00 EST, Height, 83.4, kg, 1... Start Date: 11/05/19 Stop Date: 10/30/20 Status: Ordered omeprazole 20 mg oral delayed release tablet 1 tablet = 20 mg, By Mouth, Daily, # 90 tablet, 3 Refills, Maintenance, 12/17/19 11:48:00 EST, EC Tablet, [facility]/pharmacy #[id number], 176.5, cm, 12/17/19 11:35:00 EST, Height, 83.4, kg, 11/02/18 13:42:00 EST, Dry Weight Start Date: 12/17/19 Status: Ordered tamsulosin 0.4 mg oral capsule 0.4 mg, By Mouth, Daily at bedtime, # 90 capsule, Refills 3, Tot. Refills 3, Maintenance, 12/17/19 11:48:00 EST, [id number] 176.5, cm, 12/17/19 11:35:00 EST, [...] Active Anxiety(Confirmed) Active Aortic valve prosthesis pres [id number] TAVR 2017(Confirmed) 2, 3 Active Arteriosclerotic heart [...] 23 Active PAF (paroxysmal atrial fibri llation) [id number] 6(Confirmed) Active Pituitary microadenoma(Confi rmed) 24, 25, 26 Active Restless legs syndrome (RLS)(Confirmed) Active Thrombocytopenia(Confirmed) 27, 28 06/22/09 Active Tricuspid insufficiency(Confirmed) Active Trochanteric bursitis of rig ht hip(Confirmed) Active Type 2 diabetes with nephropathy(Confirmed) Active Type 2 diabetes mellitus wit h peripheral angiopathy(Confirmed) Active 1educated about use epi pen /when call 2CARPENTIER PERICARDIAL VALVE [facility] 97723 41 graft 5CABG 2002 6Dr nini addressing 7nephrolithiasis 8to workup 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 12urology addressing [id number] 14ortho 15chronic 16RFA 17djd xray 2-015 18xray 2004 LS arthritis etc 19Zung=mod depression 20BCG 21carcinoma in situ 22saw ortho 23s aw ortho;injected SEVERE pain 24endocrinology addressing 25MRI pti ;refer endo 26mri c spine 2014 27per hematology ? 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;to follow 28workup in progress Diagnosis Diagnosis Type Effective Dates Health Status Cl inical Service Informant Foot pain, bilateral Discharge Diagnosis 12/25/19 Vital Signs Most recent to oldest [Reference Range]: 1 2 Height 176.5 cm (12/25/19 3:48 PM) 176.5 cm (12/25/19 3:33 PM) Weight 83.7 kg (12/25/19 3:33 PM) Oxygen Saturation [94-100 %] 96 % (12/25/19 3:33 PM) Pulse Rate [55-90 bpm] 54 bpm *L* (12/25/19 3:33 PM) Body Mass Index [18.5-24.99] 26.87 *H* (12/25/19 3:33 PM) Blood Pressure [90-138/55-84 mm Hg] 108/ 84mm Hg (12/25/19 3:48 PM) 150/82mm Hg *H* (12/25/19 3:33 PM) Respiratory Rate [16-30 br/min] 18 br/mi n (12/25/19 3:33 PM) Blood pressure sites Arm, left (12/25/19 3:48 PM) Arm, left (12/25/19 3:33 PM) Social History Social History Type Response Smoking Status Former smoker, quit more than 30 days ago entered on: 03/01/19 Sex
--- OUTSIDE RECORDS SUMMARY | 2023-10-05 09:57 | XMS_ITS | Continuity of Care Document ---
Author Name Unknown Organization [facility] Tom lt Address [address] [place] [address]- Care Team Providers Care Bottom Loader Name Role Phone Michael Zafar MD Primary Care Physician [place] [facility] [place] 11[place]18/19 [facility] [place] [address] [place] [address]- [facility] Attending Physician: Michael Zafar [...] [06/30/2017] HIGH DOSE RECIEVED AT [facility] 4Rrenée Comment: [08/12/2015] [place] [facility] [place] 5Admin Note: given in clinic 6Admin Note: [...] Gm, 0 Refills, Maintenance, 10/10/19 11:35:05 EST, [place], 1 sprays Nares, Both 2 times a [...] 3 Refills, Maintenance, Tablet, Route toPharmacy Electronically, [id number], [id number], Rx resent from [...] 11/05/19 12:58:00 EST, Route to Pharmacy Electronically, [facility]/pharmacy #[id number], 176.5, cm, 10/23/19 15:57:00 EST, [...] 12/28/18 10:45:55 EST, Route to Pharmacy Electronically, [id number] Start Date: 12/28/18 Status: Ordered Tums 500 [...] Active Anxiety(Confirmed) Active Aortic valve prosthesis pres [id number] TAVR 2017(Confirmed) 2, 3 Active Arteriosclerotic heart [...] 25 Active PAF (paroxysmal atrial fibri llation) [id number] 6(Confirmed) Active 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, 27, 28 Active Restless legs syndrome (RLS)(Confirmed) Active Thrombocytopenia(Confirmed) 29, 30 06/22/09 Active Tricuspid insufficiency(Confirmed) Active Trochanteric bursitis of rig ht hip(Confirmed) Active Type 2 diabetes with nephropathy(Confirmed) Active Type 2 diabetes mellitus wit h peripheral angiopathy(Confirmed) Active 1educated about use epi pen /when call 2[facility] VALVE [facility] [address] 41 graft 5CABG 2002 6Dr nini addressing 7nephrolithiasis 8to workup 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 12Zung=mod depression 13has seen glass finisher,aware RE DIABETIC;risk diabetes 14urology addressing [id number] 16ortho 17chronic 18RFA 19djd xray 2-015 20xray [...]
--- OUTSIDE RECORDS SUMMARY | 2023-10-05 09:57 | XMS_ITS | Continuity of Care Document ---
Author Name Unknown Organization [facility] Tom lt Address [address] [place] [address]- Care Team Providers Care Statistical Geneticist Name Role Phone Charisma LENZ, Michael [place] Primary Care Physician [place] [facility] [place] 07[place]/20 [facility] Adult [address] [place] [address]- [facility] Allergies, Adverse Reactions, Alerts Substance Reaction [...] Comment: [06/30/2017] HIGH DOSE RECIEVED AT [facility] 4Rrenée Comment: [08/12/2015] [place] [facility] [place] 5Admin Note: given in clinic 6Admin Note: [...] 2 times a day, # 6 LOT [id number] EXP 2, # 180 tablet, 0 Refills, Maintenance, 06/13/20 11:45:00 EDT, Dry Weight Start Date: 06/13/20 Status: Ordered apixaban 2.5 mg oral tablet 1 tablet = 2.5 mg, By Mouth, 2 times a day, # 180 tablet, 3 Refills, Maintenance, 03/05/20 13:50:00EDT, [facility]/pharmacy #[id number], 176.5, cm, 12/25/19 15:48:00 [...] Gm, 0 Refills, Maintenance, 10/10/19 11:35:05 EST, [place], 1 sprays Nares, Both 2 times a [...] Details, Route to Pharmacy Electronically, [facility]/... Start Date: 12/17/19 Status: Ordered LIDODERM [...] Refills, Maintenance, 12/17/19 11:48:00 EST, Tablet, [facility]/pharmacy #[id number], Rx resent from 11/03/16., 176.5, cm, 12/17/19 11:35:00 EST, Height, 83.4, kg, 11/02/18 13:42:00 EST, Dry Weight Start Date: 12/17/19 Status: Ordered LORazepam 2 mg oral tablet 1 tablet = 2 mg, By Mouth, 2 times a day, # 60 tablet, 0 Refills, Maintenance, 06/16/20 13:49:00 EDT, [facility]/pharmacy #[id number], 176.5, cm, 06/13/20 12:04:00 EDT, Height, 83.4, kg, 11/02/18 13:42:00 EST, Dry Weight Start Date: 06/16/20 Status: Ordered magnesium oxide 400 mg oral tablet 1 tablet = 400 mg, By Mouth, 2 times a day, # 60 tablet, 3 Refills, Maintenance, 06/16/20 11:54:00 EDT, [facility]/pharmacy #[id number], 176.5, cm, 06/13/20 12:04:00 EDT, Height, 83.4, kg, 11/02/18 13:42:00 EST, Dry Weight Start Date: 06/16/20 Status: Ordered metoprolol 25 mg oral tablet, extended release 25 mg, 1, tablet, By Mouth, Daily, # 90 tablet, Refills 3, Tot. Refills 3, Maintenance, 06/16/20 9:41:00 EDT, Route to Pharmacy Electronically, [facility]/pharmacy #[id number], succinate, 176.5, cm, 06/13/20 12:04:00 EDT, Height, 83.4, kg, 11/02/18 13:42:00 EST, D... Start Date: 06/16/20 Stop Date: 06/11/21 Status: Ordered omeprazole 20 mg oral delayed release tablet 1 tablet = 20 mg, By Mouth, Daily, # 90 tablet, 3 Refills, Maintenance, 12/17/19 11:48:00 EST, EC Tablet, [facility]/pharmacy #[id number], 176.5, cm, 12/17/19 11:35:00 EST, Height, 83.4, kg, 11/02/18 13:42:00 EST, Dry Weight Start Date: 12/17/19 Status: Ordered tamsulosin 0.4 mg oral capsule 0.4 mg, By Mouth, Daily at bedtime, # 90 capsule, Refills 3, Tot. Refills 3, Maintenance, 12/17/19 11:48:00 EST, [id number] 176.5, cm, 12/17/19 11:35:00 [...] Active Anxiety(Confirmed) Active Aortic valve prosthesis pres [id number] TAVR 2017(Confirmed) 2, 3 Active Arteriosclerotic heart [...] 26 Active PAF (paroxysmal atrial fibri llation) [id number] 6(Confirmed) Active Pituitary microadenoma(Confi rmed) 27, 28, 29 Active Restless legs syndrome (RLS)(Confirmed) Active Thrombocytopenia(Confirmed) 30, 31 06/22/09 Active Tricuspid insufficiency(Confirmed) Active Trochanteric bursitis of rig ht hip(Confirmed) Active Type 2 diabetes with nephropathy(Confirmed) Active Type 2 diabetes mellitus wit h peripheral angiopathy(Confirmed) Active 1educated about use epi pen /when call 2[facility] [address] 41 graft 5CABG 2002 6Dr nini addressing 7nephrolithiasis 8to workup 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 12giardiam,o/p ,culture neg 13normal IGA/TTG 14workup 15urology addressing [id number] 17ortho 18chronic 19RFA 20djd xray 2-015 21xray [...]
--- OUTSIDE RECORDS SUMMARY | 2023-10-05 09:57 | XMS_ITS | Continuity of Care Document ---
Author Name Unknown Organization [facility] Address [address] [place] [address]- Care Team Providers Care Ordnance Truck Installation Mechanic Name Role Phone Leo Breen DO Primary Care Physician [phone] Encounter [facility] [place] Date(s): 08/12/23 - 09/11/23 [facility] [address] [place] [address]- Attending Physician: Ju Chavez Admitting Physician: Ju [...] vaccine, inactivated 11/27/10 Give n SARS-CoV-2 mRNA ([id number]) vax 6 04/29/22 Given SARS-CoV-2 (COVID-19) mRNA [...] Pneumococcal Vaccine (oldterm) 11/07/98 Given 1Result Comment: [id number] 2Result Comment: [facility]# [address] [id number] [facility] 4Result Comment: [06/30/2017] HIGH DOSE RECIEVED AT [facility] 5Resconstance Comment: [08/12/2015] [place] [facility] [place]Result Comment: [facility]-[id number] 7Result Comment: Pfizer right deltoid lot [id number] exp 06-06-2021 [facility] 8Admin Note: GIVEN IN CLINIC [...] 04/07/23 14:29:00 EDT, Route to Pharmacy Electronically, [facility], 175, cm, 03/16/23 12:17:00 EDT, Height, 84.1, kg, 06/07/21 4:26:00 EDT, Dry Weight Start Date: 04/07/23 Status: Ordered amLODIPine 5 mg oral tablet 1 tablet, By Mouth, Daily, # 90 tablet, 1 Refills, Maintenance, 07/05/23 13:28:00 EDT, [facility], 175, cm, 06/13/23 13:20:00 [...] tablet, 1 Refills, Maintenance, 05/13/23 10:04:00 EDT, [facility], 175, cm, 04/12/23 11:54:00 EDT, Height, 84.1, kg, 06/07/21 4:26:00 EDT, Dry Weight Start Date: 05/13/23 Status: Ordered Eliquis 2.5 mg oral tablet 1 tablet, By Mouth, 2 times a day, # 180 tablet, 9 Refills, 02/18/23 17:26:00 EDT, [facility], 175, cm, 01/24/23 11:05:00 [...] Replace Required Details, Route to Pharmacy Electronically, [facility], 175, cm, 06/13/23... Start Date: 06/17/23 Status: Ordered LORazepam 0.5 mg oral tablet See Instructions, take as directed altrating with 1mg dose, # 12 each, 1 Refills, Maintenance, 07/27/23 10:26:00 EDT, Tablet, [facility], starting to wean down Partial fill upon patient request if the prescription is for a schedul... Start Date: 07/27/23 Status: Ordered LORazepam 1 mg oral tablet 1 tablet = 1 mg, By Mouth, Daily at bedtime, PRN as needed for anxiety, taper as directed, # 30 tablet, 1 Refills, Maintenance, 06/16/23 8:19:00 EDT, [facility], 175, cm, 06/13/2313:20:00 EDT, Height Start Date: 06/16/23 Status: Ordered magnesium oxide 400 mg oral tablet 1 tablet, By Mouth, Daily, # 90 tablet, 11 Refills, Maintenance, 08/13/23 17:38:00 EDT, [facility], 175, cm, 08/12/23 11:45:00 EDT, Height Start Date: 08/13/23 Status: Ordered nystatin topical [id number] u/gm powder 1 application, Topically, 2 times a day, # 60 Gm, 1 Refills, Maintenance, 07/17/23 18:25:00 EDT, Powder, [facility], 1 application Topically 2 times a day, 175, cm, 06/13/23 13:20:00 EDT, Height Start Date: 07/17/23 Status: Ordered omeprazole 20 mg oral enteric coated capsule 1 capsule, By Mouth, Daily, # 90 capsule, 1 Refills, Maintenance, 06/13/23 13:22:00 EDT, [facility], 175, cm, 06/13/23 13:20:00 EDT, Height Start Date: 06/13/23 Status: Ordered tamsulosin 0.4 mg oral capsule 1, capsule, By Mouth, Daily at bedtime, # 90 capsule, Refills 1, Maintenance, 05/13/23 10:04:00 EDT, Route to Pharmacy Electronically, [facility], 175, cm, 04/12/23 11:54:00 EDT,Height, 84.1, kg, 06/07/21 4:26:00 EDT, Dry Weight Start Date: 05/13/23 Status: Ordered Vitamin B1 100 mg oral tablet 1, tablet, By Mouth, Daily, # 30 tablet, Refills 11, Maintenance, 08/13/23 17:38:00 EDT, Route to Pharmacy Electronically, [facility], 175, cm, 08/12/23 11:45:00 [...] Active Anxiety Confirmed Active Aortic valve prosthesis [id number] TAVR 2017 1, 2 Confirmed Active Arteriosclerotic [...] Confirmed 07/22/22 Active PAF (paroxysmal atrial fibrillation) [id number] 6 Confirmed Active 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 11giardiam,o/p ,culture neg 12normal IGA/TTG 13workup [id number] 15chronic 16RFA 17djd xray 2-015 18xray 2004 [...] Care Nurse Name: Giovana Dodd NP Position: [facility] PCO Associate Professional Member Role: Lifetime Consulting Provider Address: Address: [address] [place] [address]- [place] Name: Adam Dennis MD Position: [facility] Cardiology MD Member Role: Lifetime Consulting Physician Address: Address: [address] [place] [address] [address] [place] [address]- [place] Name: Julia Yu RN Position: S RN Member Role: Primary Care Nurse Name: Jo Dillon RN Position: S RN Member Role: Primary Care Nurse Name: Anh Pires RN Position: S RN Member Role: Primary Care Nurse Name: Lonnie Puente RN Position: [facility] RN Member Role: Primary Care Nurse Name: Jaqueline Johnson RN Position: [facility] RN Member Role: Primary Care Nurse Name: Deb Brito Position: [facility] [place] Vp Purchasing Member Role: Fiberglass Laminator Name: Leo Breen DO Position: [facility] Physician - Primary Care Member Role: PCP Address: Address: [address] [place] [address] Name: Vale CHUN, Viki Eduardo Position: [facility] RN Member Role: Primary Care Nurse Care Team Related Persons Name: SARWAT HENRIQUEZ Address: home [address] [place] [address] Name: JOSEFINA CONTRERAS Address: home [address] [place] [address]
--- OUTSIDE RECORDS SUMMARY | 2023-10-05 09:57 | XMS_ITS | Continuity of Care Document ---
Author Name Unknown Organization [facility] Tom lt Address [address] [place] [address]- Care Team Providers Care Coat Check Attendant Name Role Phone Michael Zafar MD Primary Care Physician [phone] [place] [facility] [facility] [place]): [place] 03[place]12/20 [facility] Adult [address] [place] [address]- [place] Encounter Diagnosis Left inguinal hernia(Discharge Diagnosis) - 03/05/20 Depression, major(Discharge Diagnosis) - 03/05/20 Attending Physician: Michael Zafar MD Allergies, Adverse [...] 3Rrenée Comment: [06/30/2017] HIGH DOSE RECIEVED AT [facility] [place] 4Rrenée Comment: [08/12/2015] Received at [facility] [place] 5Admin Note: given in clinic 6Admin Note: [...] Gm, 0 Refills, Maintenance, 10/10/19 11:35:05 EST, [place], 1 sprays Nares, Both 2 times a [...] 3 Refills, Maintenance, 12/17/19 11:48:00 EST, Tablet, [facility]/pharmacy #[id number], Rx resent from 11/03/16., 176.5, cm, 12/17/19 11:35:00 EST, Height, 83.4, kg, 11/02/18 13:42:00 EST, Dry Weight Start Date: 12/17/19 Status: Ordered LORazepam 2 mg oral tablet 1 tablet = 2 mg, By Mouth, 2 times a day, # 60 tablet, 0 Refills, Maintenance, 03/05/20 13:50:00 EDT, [facility]/pharmacy #[id number], 176.5, cm, 12/25/19 15:48:00 EST, Height, 83.4, kg, 11/02/18 13:42:00 EST, Dry Weight Start Date: 03/05/20 Status: Ordered metoprolol 25 mg oral tablet 25 mg, 1, tablet, By Mouth, Daily, tartrate, # 90 tablet, Refills 3, Tot. Refills 3, Maintenance, 02/06/20 14:47:00 EDT, [id number], tartrate, 176.5, cm, 12/25/19 15:48:00 EST, Height, 83.4, kg, 11/02/18 13:42... Start Date: 02/06/20 Status: Ordered metoprolol 25 mg oral tablet 25 mg, 1, tablet, By Mouth, Daily, for 90 days, # 90 tablet, Refills 3, Tot. Refills 3, Hard Stop 10/30/20 12:58:00 EST, 11/05/19 12:58:00 EST, [facility], 176.5, cm, 10/23/19 15:57:00 EST, Height, 83.4, kg, 1... Start Date: 11/05/19 Stop Date: 10/30/20 Status: Ordered omeprazole 20 mg oral delayed release tablet 1 tablet = 20 mg, By Mouth, Daily, # 90 tablet, 3 Refills, Maintenance, 12/17/19 11:48:00 EST, EC Tablet, [facility]/pharmacy #0315, 176.5, cm, 12/17/19 11:35:00 EST, Height, 83.4, kg, 11/02/18 13:42:00 EST, Dry Weight Start Date: 12/17/19 Status: Ordered tamsulosin 0.4 mg oral capsule 0.4 mg, By Mouth, Daily at bedtime, # 90 capsule, Refills 3, Tot. Refills 3, Maintenance, 12/17/19 11:48:00 EST, [id number], 176.5, cm, 12/17/19 [...] Active Anxiety(Confirmed) Active Aortic valve prosthesis pres [id number] TAVR 2017(Confirmed) 2, 3 Active Arteriosclerotic heart [...] 23 Active PAF (paroxysmal atrial fibri llation) [id number] 6(Confirmed) Active Pituitary microadenoma(Confi rmed) 24, 25, 26 Active Restless legs syndrome (RLS)(Confirmed) Active Thrombocytopenia(Confirmed) 27, 28 06/22/09 Active Tricuspid insufficiency(Confirmed) Active Trochanteric bursitis of rig ht hip(Confirmed) Active Type 2 diabetes with nephropathy(Confirmed) Active Type 2 diabetes mellitus wit h peripheral angiopathy(Confirmed) Active 1educated about use epi pen /when call 2[facility]ARD[facility] VALVE [facility] [address] 41 graft 5CABG 2002 6Dr nini addressing 7nephrolithiasis 8to workup 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 12urology addressing [id number] 14ortho 15chronic 16RFA 17djd xray 2-015 18xray 2004 LS arthritis etc 19Zung=mod depression 20BCG 21carcinoma in situ 22saw ortho 23s aw ortho;injected SEVERE pain 24endocrinology addressing 25MRI pti ;refer endo 26mri c spine 2014 27per hematology ? 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;to follow 28workup in progress Diagnosis Diagnosis Type Effective Dates Health Status Cl inical Service Informant Left inguinal hernia Discharge Diagnosis 03/05/20 Depression, major Discharge Diagnosis 03/05/20 Social History Social History Type Response Smoking Status Former smoker, quit more than 30 days ago entered on: 03/01/19 Sex
--- NOTE | 2023-10-05 09:58 | PHA.MEDREC ---
Pharmacy Consult ? Medication Reconciliation Pharmacy has completed the medication reconciliation.Used list from facility
--- OUTSIDE RECORDS SUMMARY | 2023-10-05 09:58 | XMS_ITS | Continuity of Care Document ---
Author Name Unknown Organization [facility] Tom [facility] Address [address] [place] [address]- Care Team Providers Care Oil Field Roustabout Name Role Phone Giovana Dodd NP Primary Care Physician [phone] [facility]counter [facility] Date(s): 03/16/23 - 03/23/23 [facility] [place] Adult [address] [place] [address]- Encounter Diagnosis Acute CHF(Discharge Diagnosis) - 03/18/23 Benign Essential Hypertension(Discharge Diagnosis) - 03/18/23 Spondylosis of lumbar spine(Discharge Diagnosis) - 03/18/23 Attending Physician: Not on Staff, Attending MD [...] vaccine, inactivated 11/27/10 Give n SARS-CoV-2 mRNA ([id number]) vax 6 04/29/22 Given SARS-CoV-2 (COVID-19) mRNA [...] Pneumococcal Vaccine (oldterm) 11/07/98 Given 1Result Comment: [id number] 2Result Comment: [facility]# ON [address] [phone] 3Location History: [place] 4Result Comment: [06/30/2017] HIGH DOSE RECIEVED AT [address] 5Result Comment: [08/12/2015] Received at [facility] 6Result Comment: [facility]-[id number] 7Result Comment: Pfizer right deltoid lot [id number] exp 06-06-2021 [facility] [...] 12:57:00 EDT, Route to Pharmacy Electronically, [facility], 175, cm, 07/22/22 14:43:00 EDT, Height, 84.1, kg, 06/07/21 4:26:00 EDT, Dry Weight Start Date: 09/05/22 Status: Ordered amLODIPine 5 mg oral tablet 1 tablet, By Mouth, Daily, # 90 tablet, 1 Refills, Maintenance, 08/07/22 10:52:00 EDT, [facility], 175, cm, 07/22/22 14:43:00 EDT, [...] 90 tablet, 1 Refills, 11/24/22 14:41:00 EST, [facility], 175, cm, 09/29/22 12:43:00 EST, Height, 84.1, kg, 06/07/21 4:26:00 EDT, Dry Weight Start Date: 11/24/22 Status: Ordered Eliquis 2.5 mg oral tablet 1 tablet, By Mouth, 2 times a day, # 180 tablet, 9 Refills, 02/18/23 17:26:00 EDT, [facility], 175, cm, 01/24/23 11:05:00 EDT, Height, 84.1, kg, 06/07/21 4:26:00 EDT, Dry Weight Start Date: 02/18/23 Status: Ordered furosemide 20 mg oral tablet 20 mg, 1, tablet, By Mouth, Daily, for 30 days, # 30 tablet, Refills 0, Tot. Refills 0, Acute 04/15/23 12:48:00 EDT, 03/16/23 12:48:00 EDT, Route to Pharmacy Electronically, [facility]/pharmacy #[id number], =, 175, cm, 03/16/23 12:17:00 EDT, Height, 84.1, kg, 08/0... Start Date: 03/16/23 Stop Date: 04/15/23 Status: Ordered LORazepam 1 mg oral tablet 1 tablet = 1 mg, By Mouth, Daily at bedtime, 11/09 - 03/08/2312/10 - 04/07/2301/07 delivery Sunday 05/06, start taking 05/07/23, # 30 tablet, 2 Refills, Maintenance, 02/18/23 10:24:00 EDT, [facility], 175, cm, 01/24/23 11:05:00 EDT,... Start Date: 02/18/23 Status: Ordered magnesium oxide 400 mg oral tablet 1 tablet, By Mouth, Daily, # 90 tablet, 11 Refills, Maintenance, 08/09/22 9:27:00 EDT, [facility], 175, cm, 07/22/22 14:43:00 EDT, Height, 84.1, kg, 06/07/21 4:26:00 EDT, Dry Weight Start Date: 08/09/22 Status: Ordered Melatonin Daily at bedtime, 0 Refills, Maintenance, 01/24/23 11:27:00 EDT Start Date: 01/24/23 Status: Ordered nystatin topical 172939 u/gm powder 1 application, Topically, 2 times a day, # 60 Gm, 5 Refills, Maintenance, 01/14/22 10:20:00 EST, Powder, [facility], Partial fill upon patient request if the prescription is for a schedule II opioid drug., 1 application Topically... Start Date: 01/14/22 Status: Ordered omeprazole 20 mg oral enteric coated capsule 1 capsule, By Mouth, Daily, # 90 capsule, 0 Refills, Maintenance, 03/08/23 9:16:00 EDT, [facility], 175, cm, 01/24/23 11:05:00 EDT, Height, 84.1, kg, 06/07/21 4:26:00 EDT, Dry Weight Start Date: 03/08/23 Status: Ordered tamsulosin 0.4 mg oral capsule 1, capsule, By Mouth, Daily at bedtime, # 90 capsule, Refills 1, Tot. Refills 1, 11/24/22 14:41:00 EST, Route to Pharmacy Electronically, [facility], 175, cm, 09/29/22 12:43:00 EST, Height, 84.1, kg, 06/07/21 4:26:00 EDT, Dry Weight Start Date: 11/24/22 Status: Ordered Vitamin B1 100 mg oral tablet 1, tablet, By Mouth, Daily, # 30 tablet, Refills 11, Maintenance, 08/09/22 9:27:00 EDT, Route to Pharmacy Electronically, [facility], 175, cm, 07/22/22 14:43:00 EDT, [...] Active Anxiety Confirmed Active Aortic valve prosthesis [id number] TAVR 2017 1, 2 Confirmed Active Arteriosclerotic [...] gout Confirmed 08/09/19 Active H/O endarterectomy RT 2010,left 2020 Confirmed Active S/P TAVR (transcatheter aortic [...] Confirmed 07/22/22 Active PAF (paroxysmal atrial fibrillation) [id number] 6 Confirmed Active Pituitary microadenoma 22, 23, 24 Confirmed Active Restless legs syndrome (RLS) Confirmed Active 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 11giardiam,o/p ,culture neg 12normal IGA/TTG 13workup [id number] 15chronic 16RFA 17djd xray 2-015 18xray 2004 LS arthritis etc 19BCG 20carcinoma in situ 21saw ortho 22endocrinology addressing 23MRI pti ;refer endo 24mri c spine 2014 25per hematology ? 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;to follow 26workup in progress Diagnosis Diagnosis Type Effective Dates Health Status Clinical Service Informant Spondylosis of lumbar spine Discharge Diagnosis 03/18/23 Acute CHF Discharge Diagnosis 03/18/23 Benign Essential Hypertension Discharge Diagnosis 03/18/23 Vital Signs Most recent to oldest [Reference Range]: 1 2 Height 175 cm (03/16/23 12:17 PM) 175 cm (03/16/23 12:10 PM) Weight 86.5 kg (03/16/23 12:10 PM) Oxygen Saturation [94-100 %] 96 % (03/16/23 12:10 PM) Pulse Rate [55-90 bpm] 82 bpm (03/16/23 12:10 PM) Body Mass Index [18.5-24.99 kg/m2] 28.24 kg/m2 *H* (03/16/23 12:10 PM) Blood Pressure [90-138/55-84 mm Hg] 130/ 76mm Hg (03/16/23 12:17 PM) 143/79mm Hg *H* (03/16/23 12:10 PM) Mode of Delivery (Oxygen) Room air (03/16/23 12:10 PM) Blood pressure sites Arm, left (03/16/23 12:17 PM) Arm, left (03/16/23 12:10 PM) Weight Obtained Via Standing scale (03/16/23 12:10 PM) Social History Social History Type Response Smoking Status Former smoker, quit more than 30 days ago; Type: Cigarettes; Type: Cigars entered on: 01/24/23 Sex Patient Care team information Care Team Personnel Name: Ju MARKETING BUDGET ANALYST, Giovana Chiu Position: [facility] PCO Associate Professional Member Role: PCP Address: Address: [address] [place] [address]- [place] Name: Adam Dennis MD Position: [facility] Cardiology MD Member Role: Lifetime Consulting Physician Address: Address: [address] [place] [address] [address] [place] [address]- Name: Julia Yu RN Position: S RN [...] Persons Name: SARWAT HENRIQUEZ Address: [address] [place] [address] Name: JOSEFINA CONTRERAS Address: home [address] [place] [address]
--- OUTSIDE RECORDS SUMMARY | 2023-10-05 09:58 | XMS_ITS | Continuity of Care Document ---
Author Name Unknown Organization [facility] Address [address] [place] [address]- Care Team Providers Care Furniture Designer Name Role Phone Charisma LNEZ, Michael Boston Primary Care Physician [phone] Encounter [facility] Date(s): 01/18/22 - 02/17/22 [facility] Adult [address] [place] [address]- Allergies, Adverse Reactions, Alerts Substance Reaction Severity [...] Vaccine (oldterm) 11/07/98 Given 1Result Comment: [facility]# [address] [phone] 2Location History: [place] 3Resconstance Comment: [06/30/2017] HIGH DOSE RECIEVED AT [facility] 4Resconstance Comment: [08/12/2015] Received at [facility] 5Result Comment: Pfizer right deltoid lot [id number] exp 06-06-2021 [facility] 6Admin Note: GIVEN IN CLINIC [...] Start Date: 08/08/20 Status: Ordered nystatin topical 935838 u/gm powder 1 application, Topically, 2 times [...] Active Anxiety(Confirmed) Active Aortic valve prosthesis pres [id number] TAVR 2017(Confirmed) 2, 3 Active Arteriosclerotic heart [...] 25 Active PAF (paroxysmal atrial fibri llation) [id number] 6(Confirmed) Active 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 12giardiam,o/p ,culture neg 13normal IGA/TTG 14workup 15urology addressing [id number] 17ortho 18chronic 19RFA 20djd xray 2-015 21xray [...]
--- OUTSIDE RECORDS SUMMARY | 2023-10-05 09:58 | XMS_ITS | Continuity of Care Document ---
Author Name Unknown Organization [facility] Address [address] [place] [address]- Care Team Providers Care Eap Counselor Name Role Phone Charisma LENZ, Michael Boston Primary Care Physician Encounter [facility] Date(s): 08/05/20 - 09/04/20 [facility] Adult [address] [place] [address]- [facility] Allergies, Adverse Reactions, Alerts Substance Reaction Severity [...] Bradford Comment: [06/30/2017] HIGH DOSE RECIEVED AT [facility] DR Lucero Comment: [08/12/2015] Received at [facility] 4Admin Note: GIVEN IN CLINIC SHAM 5Admin [...] 2 times a day, # 6 LOT [id number] EXP 2-21, # 180 tablet, 0 Refills, [...] Gm, 0 Refills, Maintenance, 10/10/19 11:35:05 EST, [place], 1 sprays Nares, Both 2 times a [...] tablet, 0 Refills, Maintenance, 06/16/20 13:49:00 EDT, [facility]/pharmacy #[id number], 176.5, cm, 06/13/20 12:04:00 EDT, Height, 83.4, kg, 11/02/18 13:42:00 EST, Dry Weight Start Date: 06/16/20 Status: Ordered melatonin 5 mg oral tablet By Mouth, Daily at bedtime, 0 Refills, Maintenance, 08/08/20 9:44:00 EDT, Tablet Start Date: 08/08/20 Status: Ordered metoprolol 25 mg oral tablet, extended release 25 mg, 1, tablet, By Mouth, Daily, # 90 tablet, Refills 3, Tot. 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) 2, 3 Active Arteriosclerotic heart [...] 25 Active PAF (paroxysmal atrial fibri llation) [id number] 6(Confirmed) Active 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, 27, 28 Active Restless legs syndrome (RLS)(Confirmed) Active Thrombocytopenia(Confirmed) 29, 30 06/22/09 Active Tricuspid insufficiency(Confirmed) Active Trochanteric bursitis of rig ht hip(Confirmed) Active Type 2 diabetes with nephropathy(Confirmed) Active Type 2 diabetes mellitus wit h peripheral angiopathy(Confirmed) Active 1educated about use epi pen /when call 2CARPENTIER PERICARDIAL VALVE [facility] 48199 41 graft 5CABG 2002 6Dr nini addressing 7nephrolithiasis 8to workup 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 12giardiam,o/p ,culture neg 13normal IGA/TTG 14workup 15urology addressing [id number] 17ortho 18chronic 19RFA 20djd xray 2-015 21xray [...]
--- OUTSIDE RECORDS SUMMARY | 2023-10-05 09:58 | XMS_ITS | Continuity of Care Document ---
Author Name Unknown Organization [facility] Address [address] [place] [address]- Care Team Providers Care Catalogue Compiler Name Role Phone Michael Zafar MD Primary Care Physician [phone] Encounter [facility] Date(s): 01/02/21 - 01/09/21 [facility] Adult [address] [place] [address]- Encounter Diagnosis Major depression(Discharge Diagnosis) - 01/02/21 Pituitary microadenoma(Discharge Diagnosis) - 01/02/21 Type 2 diabetes with nephropathy(Discharge Diagnosis) - 01/02/21 Chronic gout(Discharge Diagnosis) - 01/02/21 Attending Physician: Michael Zafar MD Allergies, Adverse [...] [place] Comment: [06/30/2017] HIGH DOSE RECIEVED AT [facility] DR Lucero Comment: [08/12/2015] Received at [facility] 5Admin Note: [...] 10/20/20 11:45:00 EST, Route to Pharmacy Electronically, [facility]/pharmacy #[id number], 175, cm, 10/20/20 11:12:00 EST, Height, 80.6, kg, 08/05/20 17:31:00 EDT, Dry Weight Start Date: 10/20/20 Status: Ordered amLODIPine 5 mg oral tablet 5 mg, 1, tablet, By Mouth, Daily, # 30 tablet, Refills 3, Tot. Refills 3, Maintenance, 12/05/20 9:44:00 EST, Route to Pharmacy Electronically, [facility]/pharmacy #[id number], 175, cm, 12/05/20 8:32:00 EST, Height, 79, kg, 11/26/20 11:00:00 EST, Dry Weight Start Date: 12/05/20 Status: Ordered apixaban 2.5 mg oral tablet 1 tablet = 2.5 mg, By Mouth, 2 times a day, # 180 tablet, 3 Refills, Maintenance, 03/05/20 13:50:00EDT, [facility]/pharmacy #[id number], 176.5, cm, 12/25/19 [...] 3 Refills, Maintenance, 12/17/19 11:48:00 EST, Tablet, [facility]/pharmacy #[id number], Rx resent from [...] Refills, Maintenance, 12/17/19 11:48:00 EST, EC Tablet, [facility]/pharmacy #[id number], 176.5, cm, 12/17/19 11:35:00 EST, Height, 83.4, kg, 11/02/18 13:42:00 EST, Dry Weight Start Date: 12/17/19 Status: Ordered tamsulosin 0.4 mg oral capsule 0.4 mg, By Mouth, Daily at bedtime, # 90 capsule, Refills 3, Tot. Refills 3, Maintenance, 12/17/19 11:48:00 EST, Route to Pharmacy Electronically, [facility]/pharmacy #[id number], 176.5, cm, 12/17/19 11:35:00 EST, Height, 83.4, kg, 11/02/18 13:42:00 EST, Dry Weight Start Date: 12/17/19 Status: Ordered thiamine 100 mg oral tablet 100 mg, 1, tablet, By Mouth, Daily, # 30 tablet, Refills 11, Tot. Refills 11, Maintenance, 09/08/2013:24:00 EST, Route to Pharmacy Electronically, [facility]/pharmacy #[id number], 175, cm, 09/08/20 [...] Active Anxiety(Confirmed) Active Aortic valve prosthesis pres [id number] TAVR 2017(Confirmed) 2, 3 Active Arteriosclerotic heart [...] 25 Active PAF (paroxysmal atrial fibri llation) [id number] 6(Confirmed) Active 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, 27, 28 Active Restless legs syndrome (RLS)(Confirmed) Active Thrombocytopenia(Confirmed) 29, 30 06/22/09 Active Tricuspid insufficiency(Confirmed) Active Trochanteric bursitis of rig ht hip(Confirmed) Active Type 2 diabetes with nephropathy(Confirmed) Active Type 2 diabetes mellitus wit h peripheral angiopathy(Confirmed) Active 1educated about use epi pen /when call 2CARPENTIER PERICARDIAL VALVE [facility] [address] 41 graft 5CABG 2002 6Dr nini addressing 7nephrolithiasis 8to workup 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 12giardiam,o/p ,culture neg 13normal IGA/TTG 14workup 15urology addressing [id number] 17ortho 18chronic 19RFA 20djd xray 2-015 21xray 2004 LS arthritis etc 22BCG 23carcinoma in situ 24saw ortho 25s aw ortho;injected SEVERE pain 26endocrinology addressing 27MRI pti ;refer endo 28mri c spine 2014 29per hematology ? 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;to follow 30workup in progress Diagnosis Diagnosis Type Effective Dates Health Status Clinical Service Informant Major depression Discharge Diagnosis 01/02/21 Pituitary microadenoma Discharge Diagnosis 01/02/21 Type 2 diabetes with nephropathy Discharge Diagnosis 01/02/21 Chronic gout Discharge Diagnosis 01/02/21 Vital Signs Most recent to oldest [Reference Range]: 1 2 Height 175 cm (01/02/21 11:40 AM) 175 cm (01/02/21 11:19 AM) Weight 81.5 kg (01/02/21 11:19 AM) Pulse Rate [55-90 bpm] 92 bpm *H* (01/02/21 11:19 AM) Body Mass Index [18.5-24.99] 26.61 *H* (01/02/21 11:19 AM) Blood Pressure [90-138/55-84 mm Hg] 118/ 70mm Hg (01/02/21 11:40 AM) 144/70mm Hg *H* (01/02/21 11:19 AM) Respiratory Rate [16-30 br/min] 16 br/mi n (01/02/21 11:19 AM) Blood pressure sites Arm, left (01/02/21 11:40 AM) Arm, left (01/02/21 11:19 AM) Social History Social History Type Response Smoking Status Former smoker, quit more than 30 days ago entered on: 03/01/19 Sex
--- OUTSIDE RECORDS SUMMARY | 2023-10-05 09:58 | XMS_ITS | Continuity of Care Document ---
Author Name Unknown Organization [facility] Address [address] [place] [address]- Care Team Providers Care Director Digital Advertising Name Role Phone Giovana Dodd NP Primary Care Physician [facility]counter [facility] Date(s): 02/21/23 - 04/10/23 [facility] Adult [address] [place] [address]- Attending Physician: Not on Staff, Attending MD [...] vaccine, inactivated 11/27/10 Give n SARS-CoV-2 mRNA ([id number]-ectei) vax 6 04/29/22 Given SARS-CoV-2 (COVID-19) mRNA [...] Pneumococcal Vaccine (oldterm) 11/07/98 Given 1Result Comment: [id number] 2Result Comment: [facility]# [address] [phone] 3Location History: [place] 4Result Comment: [06/30/2017] HIGH DOSE RECIEVED AT [facility] 5Result Comment: [08/12/2015] Received at [facility] 6Result Comment: [facility]-[id number] 7Result Comment: Pfizer right deltoid lot [id number] exp 06-06-2021 [facility] 8Admin Note: GIVEN IN CLINIC SHAM [...] tablet, 1 Refills, Maintenance, 08/07/22 10:52:00 EDT, [facility], 175, cm, [...] 90 tablet, 1 Refills, 11/24/22 14:41:00 EST, [facility], 175, cm, 09/29/22 12:43:00 EST, [...] 12:48:00 EDT, Route to Pharmacy Electronically, [facility]/pharmacy #[id number], =, 175, cm, 03/16/23 12:17:00 EDT, Height, 84.1, kg, 08/0... Start Date: 03/16/23 Stop Date: 04/15/23 Status: Ordered furosemide 20 mg oral tablet 20 mg, 1, tablet, By Mouth, Daily, for 30 days, # 30 tablet, Refills 0, Tot. Refills 0, Acute 05/15/23 12:48:00 EDT, 04/15/23 12:48:00 EDT, Route to Pharmacy Electronically, [facility], please dispense early, 175, cm, 03/16/23 12:... Start Date: 04/15/23 Stop Date: 05/15/23 Status: Ordered LORazepam 1 mg oral tablet 1 tablet = 1 mg, By Mouth, Daily at bedtime, 11/09 - 03/08/2312/10 - 04/07/2301/07 delivery Sunday 05/06, start taking 05/07/23, # 30 tablet, 2 Refills, Maintenance, 02/18/23 10:24:00 EDT, [facility], 175, cm, 01/24/23 11:05:00 EDT,... [...] Start Date: 01/24/23 Status: Ordered nystatin topical 213890 u/gm powder 1 application, Topically, 2 times [...] capsule, 0 Refills, Maintenance, 03/08/23 9:16:00 EDT, [facility], 175, cm, 01/24/23 11:05:00 EDT, Height, 84.1, kg, 06/07/21 4:26:00 EDT, Dry Weight Start Date: 03/08/23 Status: Ordered tamsulosin 0.4 mg oral capsule 1, capsule, By Mouth, Daily at bedtime, # 90 capsule, Refills 1, Tot. Refills 1, 11/24/22 14:41:00 EST, Route to Pharmacy Electronically, [facility], 175, cm, 09/29/22 12:43:00 EST, [...] Active Anxiety Confirmed Active Aortic valve prosthesis [id number] TAVR 2017 1, 2 Confirmed Active Arteriosclerotic [...] Active Chronic diarrhea episodic normal IGA TTG 2015 09, 12, 13 Confirmed Active GERD Confirmed Active [...] Confirmed 07/22/22 Active PAF (paroxysmal atrial fibrillation) [id number] 6 Confirmed Active Pituitary microadenoma 22, 23, 24 Confirmed Active Restless legs syndrome (RLS) Confirmed Active Thrombocytopenia hematology 2008 ? 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 11giardiam,o/p ,culture neg 12normal IGA/TTG 13workup [id number] 15chronic 16RFA 17djd xray 2-015 18xray 2004 [...] Team Personnel Name: Giovana Dodd NP Position: S PCO Associate Professional Member Role: PCP Address: Address: [address] [place] [address] [place] [address]- [place] Name: Adam Dennis MD Position: [facility] Cardiology MD Member Role: Lifetime Consulting Physician Address: Address: [address] [place] [address] [address] [place] [address]- [place] Name: Julia Yu RN Position: S RN Member Role: Primary Care Nurse Name: Jo Dillon RN Position: S RN Member Role: Primary Care Nurse Name: Anh Pires RN Position: S RN Member Role: Primary Care Nurse Name: Lonnie Puente Position: S RN Member Role: Primary Care Nurse Name: Jaqueline Johnson RN Position: [facility] RN Member Role: Primary Care Nurse Name: Vale CHUN, Viki Eduardo Position: [facility] RN Member Role: Primary Care Nurse Care Team Related Persons Name: SARWAT HENRIQUEZ Address: [address] [place] [address] Name: JOSEFINA CONTRERAS Address: [address] [place] [address]
--- OUTSIDE RECORDS SUMMARY | 2023-10-05 09:58 | XMS_ITS | Continuity of Care Document ---
Author Name Unknown Organization [facility] Anders Bradley Tom lt Address [address] [place] [address]- Care Team Providers Care [employer] Name Role Phone Leo Breen DO Primary Care Physician Encounter [facility] Date(s): 07/27/23 - 08/03/23 [facility] Adult [address] [place] [address]- Encounter Diagnosis Benign Essential Hypertension(Discharge Diagnosis) - 07/27/23 Bladder cancer 2010/refuses f/u cyysto 2021 advised re abn cytology(Discharge Diagnosis) - 07/27/23 Adjustment disorder with depressed mood(Discharge Diagnosis) - 07/27/23 Neck pain(Discharge Diagnosis) - 07/27/23 Decreased urine output(Discharge Diagnosis) - 07/27/23 Attending Physician: Leo Breen DO Allergies, Adverse [...] vaccine, inactivated 11/27/10 Give n SARS-CoV-2 mRNA ([id number]) vax 6 04/29/22 Given SARS-CoV-2 (COVID-19) mRNA [...] Pneumococcal Vaccine (oldterm) 11/07/98 Given 1Result Comment: [id number] 2Result Comment: [facility]# [address] [phone] 3Location History: [place] 4Result Comment: [06/30/2017] HIGH DOSE RECIEVED AT [facility] 5Result Comment: [08/12/2015] Received at [facility] 6Result Comment: [facility]-[id number] 7Result Comment: Pfizer right deltoid lot [id number] exp 06-06-2021 [facility] 8Admin Note: GIVEN IN CLINIC SHAM [...] 04/07/23 14:29:00 EDT, Route to Pharmacy Electronically, [facility], 175, cm, 03/16/23 12:17:00 EDT, Height, 84.1, kg, 06/07/21 4:26:00 EDT, Dry Weight Start Date: 04/07/23 Status: Ordered amLODIPine 5 mg oral tablet 1 tablet, By Mouth, Daily, # 90 tablet, 1 Refills, Maintenance, 07/05/23 13:28:00 EDT, [facility], 175, cm, 06/13/23 13:20:00 [...] tablet, 1 Refills, Maintenance, 05/13/23 10:04:00 EDT, [facility], 175, cm, 04/12/23 11:54:00 EDT, Height, 84.1, kg, 06/07/21 4:26:00 EDT, Dry Weight Start Date: 05/13/23 Status: Ordered Eliquis 2.5 mg oral tablet 1 tablet, By Mouth, 2 times a day, # 180 tablet, 9 Refills, 02/18/23 17:26:00 EDT, [facility], 175, cm, 01/24/23 11:05:00 [...] Replace Required Details, Route to Pharmacy Electronically, [facility], 175, cm, 06/13/23... Start Date: 06/17/23 Status: Ordered LORazepam 0.5 mg oral tablet See Instructions, take as directed altrating with 1mg dose, # 12 each, 1 Refills, Maintenance, 07/27/23 10:26:00 EDT, Tablet, [facility], starting to wean down Partial fill upon patient request if the prescription is for a schedul... Start Date: 07/27/23 Status: Ordered LORazepam 1 mg oral tablet 1 tablet = 1 mg, By Mouth, Daily at bedtime, PRN as needed for anxiety, taper as directed, # 30 tablet, 1 Refills, Maintenance, 06/16/23 8:19:00 EDT, [facility], 175, cm, 06/13/2313:20:00 EDT, Height Start Date: 06/16/23 Status: Ordered magnesium oxide 400 mg oral tablet 1 tablet, By Mouth, Daily, # 90 tablet, 11 Refills, Maintenance, 08/09/22 9:27:00 EDT, [facility], 175, cm, 07/22/22 14:43:00 EDT, Height, 84.1, kg, 06/07/21 4:26:00 EDT, Dry Weight Start Date: 08/09/22 Status: Ordered nystatin topical 080086 u/gm powder 1 application, Topically, 2 times a day, # 60 Gm, 1 Refills, Maintenance, 07/17/23 18:25:00 EDT, Powder, [facility], 1 application Topically 2 times a day, 175, cm, 06/13/23 13:20:00 EDT, Height Start Date: 07/17/23 Status: Ordered omeprazole 20 mg oral enteric coated capsule 1 capsule, By Mouth, Daily, # 90 capsule, 1 Refills, Maintenance, 06/13/23 13:22:00 EDT, [facility], 175, cm, 06/13/23 13:20:00 EDT, Height Start Date: 06/13/23 Status: Ordered tamsulosin 0.4 mg oral capsule 1, capsule, By Mouth, Daily at bedtime, # 90 capsule, Refills 1, Maintenance, 05/13/23 10:04:00 EDT, Route to Pharmacy Electronically, [facility], 175, cm, 04/12/23 11:54:00 EDT,Height, 84.1, kg, 06/07/21 4:26:00 EDT, Dry Weight Start Date: 05/13/23 Status: Ordered Vitamin B1 100 mg oral tablet 1, tablet, By Mouth, Daily, # 30 tablet, Refills 11, Maintenance, 08/09/22 9:27:00 EDT, Route to Pharmacy Electronically, [facility], 175, cm, 07/22/22 14:43:00 [...] Active Anxiety Confirmed Active Aortic valve prosthesis [id number] TAVR 2017 1, 2 Confirmed Active Arteriosclerotic heart disease (ASHD) cabg 2002; 3, 4 Confirmed Active Weakness Confirmed Active [...] Confirmed 07/22/22 Active PAF (paroxysmal atrial fibrillation) [id number] 6 Confirmed Active 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 11giardiam,o/p ,culture neg 12normal IGA/TTG 13workup [id number] 15chronic 16RFA 17djd xray 2-015 18xray 2004 LS arthritis etc 19BCG 20carcinoma in situ 21Per Dr. Zafar 07/22/22. 22saw ortho 23endocrinology addressing 24MRI pti ;refer endo 25mri c spine 2014 26per hematology ? 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;to follow 27workup in progress Diagnosis Diagnosis Type Effective Dates Health Status Clinical Service Informant Benign Essential Hypertension Discharge Diagnosis 07/27/23 Bladder cancer 2010/refuses f/u cyysto 2021 advised re abn cytology Discharge Diagnosis 07/27/23 Adjustment disorder with depressed mood Discharge Diagnosis 07/27/23 Neck pain Discharge Diagnosis 07/27/23 Decreased urine output Discharge Diagnosis 07/27/23 Vital Signs Most recent to oldest [Reference Range]: 1 Height 175 cm (07/27/23 9:59 AM) Weight 84.8 kg (07/27/23 9:59 AM) Oxygen Saturation [94-100 %] 98 % (07/27/23 9:59 AM) Pulse Rate [55-90 bpm] 81 bpm (07/27/23 9:59 AM) Body Mass Index [18.5-24.99 kg/m2] 27.69 kg/m2 *H* (07/27/23 9:59 AM) Blood Pressure [90-138/55-84 mm Hg] 145/ 78mm Hg *H* (07/27/23 9:59 AM) Blood pressure sites Arm, left (07/27/23 9:59 AM) Social History Social History Type Response Smoking Status Former smoker, quit more than 30 days ago; Type: Cigarettes; Type: Cigars entered on: 01/24/23 Sex Note * Chelsea Baker: PERFORM, SIGN, VERIFY Event Display: Patient Education/Instruction Authored Date: [id number] [facility] *BMP So Kirk Newman Clinical Summary Name SHADI SWAN Age 88 Years 1935 PCP Leo Breen DO PCP Visit Date 07/27/2023 09:50:00 Patient Instructions neck stretches and heat follow up if worse continue lorazepam per calender ??recommend getting the updated COVID and flu vaccines at your local pharmacy. And the RSV vaccine Additional Instructions: Scheduled Appointments?? Future Appointments ?*[facility]??Cardiology1 ?[address]??[place],??[place],??[address] ?Phone:??--?Fax:??-- ?Appt. Date:??08/12/2023?11:25 AM ?Scheduled Provider:??Richard Abel MD ?*Device??Clinic ?Phone:??--?Fax:??-- ?Appt. Date:??09/19/2023?7:40 AM ?Scheduled Provider:??Device Interrogation ?*BMP??[facility] ?[address],??[address] ?Phone:??--?Fax:??-- ?Appt. Date:??09/20/2023?1:50 PM ?Scheduled Provider:??Jamshid TEJADA, Leo Follow-Up Instructions ?? Diagnosis Essential (primary) hypertension; Weakness; Cervicalgia; Anuria and oliguria; Malignant neoplasm ofbladder, unspecified; Adjustment disorder with depressed mood Medications: Please continue your medications until treatment is completed or stopped by your provider. Discuss any questions related to medications with your provider. Medications to Continue with No Changes [facility], [address] [place] [phone], [phone] Lorazepam (LORazepam 0.5 mg oral tablet) take [...] MOUTH EVERY DAY. Refills: 2. Next Dose: Lorazepam (LORazepam 1 mg oral tablet) 1 tab(s) Oral Daily at Bedtime as needed as needed for anxiety. taper as directed. Refills: 1. Next Dose: Magnesium Oxide (magnesium oxide 400 mg oral tablet) 1 tab(s) Oral Daily. Refills: 11. Next Dose: Nystatin Topical (nystatin topical 991993 u/gm powder) 1 venancio Topically twice a day. Refills: 1. Next Dose: Omeprazole (omeprazole 20 mg oral enteric coated capsule) 1 capsule Oral Daily. Refills: 1. Next Dose: Tamsulosin (tamsulosin 0.4 mg oral capsule) 1 capsule Oral Daily at Bedtime. Refills: 1. Next Dose: Thiamine (Vitamin B1 100 mg oral tablet) 1 tab(s) Oral Daily. Refills: 11. Next Dose: Allergy Info:?? traZODone; FLUoxetine; Percocet 5/325; Lactose; Welchol; Bee Stings; Remeron; Effexor; Percocet; citalopram; carvedilol; lisinopril Medications Given This Visit Future Orders ?Comprehensive Metabolic Panel? Order Date:07/27/23?- Complete on or after?07/27/23 ?CBC w/ Differential? Order Date:07/27/23?- Complete on or after?07/27/23 Vital Signs Height 175 cm Weight 84.8 kg BMI 27.69 kg/m2 Blood Pressure 145 mm Hg/78 mm Hg Temperature Pulse Rate 81 bpm Respiratory Rate 02 Sat Mode of Delivery 98 %/ You can now view a summary of your hospital visit from the comfort of your home through a free online portal called mktg. mktg is a website that allows you to securely view your medical information including discharge summary, medications and follow-up visits. ??You can alsosend a secure electronic message to your doctor???s office to request appointments, renew medications or just ask a question. You can enroll at [email or web address] or register during your next office [...] primary care provider, you may find a [facility] provider by calling [facility] Link at [phone]. [facility], in keeping with [facility] guidance, no longer requires face masks for staff, patientsor visitors in most situations. Similar to time spent indoors at other locations, there is the chance that you were exposed to respiratory viruses during your time with us (such as flu or COVID-19).? If you develop symptoms concerning for a viral respiratory infection, please seek testing (and treatment if indicated) from your medical provider or home test kit. For information about the plan of care [...] Team Personnel Name: Giovana Dodd NP Position: [facility] PCO Associate Professional Member Role: Lifetime Consulting Provider Address: Address: [address] [place] [id number]- Name: Adam Dennis MD Position: [facility] Cardiology MD Member Role: Lifetime Consulting Physician Address: Address: [address] [place] [address] [address] [place] [address]- Name: Julia Yu RN Position: [facility] RN Member Role: Primary Care Nurse Name: Jo Dillon RN Position: [facility] RN Member Role: Primary Care Nurse Name: Anh Pires RN Position: [facility] RN Member Role: Primary Care Nurse Name: Lonnie Puente RN Position: [facility] RN Member Role: Primary Care Nurse Name: Jaqueline Johnson RN Position: [facility] RN Member Role: Primary Care Nurse Name: Deb Brito Position: [facility] [place] Railroad Signal And Switch Operator Member Role: Waterproof Material Folder Name: Leo Breen DO Position: [facility] Physician - Primary Care Member Role: PCP Address: Address: [address] [place] [address]- Name: Vale CHUN, Viki Eduardo Position: [facility] RN Member Role: Primary Care Nurse Care Team Related Persons Name: SARWAT HENRIQUEZ Address: home [address] [place] [address] Name: JOSEFINA CONTRERAS Address: home [address] [place] [address]
--- OUTSIDE RECORDS SUMMARY | 2023-10-05 09:58 | XMS_ITS | Continuity of Care Document ---
Author Name Unknown Organization [facility] Address [address] [address]- Care Team Providers Care Processing Lead Name Role Phone Charisma LENZ, Michael Boston Primary Care Physician [phone] Encounter [facility] Date(s): 10/27/21 - 11/26/21 [facility] [address] [address] Allergies, Adverse Reactions, Alerts Substance Reaction Severity [...] [facility]# [address] [phone] 2Location History: [place] 3Resconstance Comment: [06/30/2017] HIGH DOSE RECIEVED AT [facility] 4Rrenée Comment: [08/12/2015] Received at [facility] 5Result Comment: Pfizer right deltoid lot [id number] exp 06-06-2021 [facility] 6Admin Note: GIVEN IN CLINIC SHAM [...] 09/01/21 11:50:00 EDT, Route to Pharmacy Electronically, [facility], 175, cm, 08/12/21 15:35:00 EDT, Height, 84.1, kg, 06/07/21 4:26:00 EDT,... Start Date: 09/01/21 Status: Ordered amLODIPine 5 mg oral tablet See Instructions, 1/2 at night, # 45 each, Refills 1, Tot. Refills 1, Maintenance, 06/08/21 11:27:00 EDT, Instructions Replace Required Details, Route to Pharmacy Electronically, [facility] #[id number], 175, cm, 06/07/21 8:16:00 EDT, [...] 90 tablet, 1 Refills, 09/01/21 11:50:00 EDT, [facility], 175, cm, 08/12/21 15:35:00 EDT, Height, 84.1, kg, 06/07/21 4:26:00 EDT, Dry Weight Start Date: 09/01/21 Status: Ordered Eliquis 2.5 mg oral tablet 1 tablet, By Mouth, 2 times a day, # 180 tablet, 3 Refills, Maintenance, 03/17/21 11:43:00 EDT, [id number], 175, cm, 02/06/21 10:40:00 EDT, Height, 79, [...] 30 tablet, 0 Refills, Maintenance, 10/05/21 16:08:00EST, [facility], 175, cm, 09/23/21 12:36:00 EST, Height, 84.1, kg, 06/07/21 4:26:00 EDT, Dry Weight Start Date: 10/05/21 Status: Ordered magnesium oxide 400 mg oral tablet 1 tablet = 400 mg, By Mouth, Daily, # 90 tablet, 3 Refills, Maintenance, 02/12/21 17:31:00 EDT, Tablet, [facility]/pharmacy #[id number], Partial fill upon patient request [...] 90 capsule, 0 Refills, 09/01/21 11:50:00 EDT, [facility], 175, cm, 08/12/21 15:35:00 EDT, Height, 84.1, kg, 06/07/21 4:26:00 EDT, Dry Weight Start Date: 09/01/21 Status: Ordered predniSONE 50 mg oral tablet 1 tablet = 50 mg, By Mouth, Daily, in am with food, # 3 tablet, 0 Refills, Maintenance, 10/12/21 15:26:00 EST, Tablet, [facility]/pharmacy #[id number], Partial fill upon patient request if the prescription is fora schedule II opioid drug., 175, cm, 10/12/21 14:45... Start Date: 10/12/21 Status: Ordered tamsulosin 0.4 mg oral capsule 1, capsule, By Mouth, Daily at bedtime, # 90 capsule, Refills 1, Tot. Refills 0, Maintenance, 05/08/21 14:24:00 EDT, Route to Pharmacy Electronically, [id number], 175, cm, 04/29/21 10:36:00 EDT,Height, 79, kg, 11/26/20 11:00:00 EST, Dry Weight Start Date: 05/08/21 Status: Ordered thiamine 100 mg oral tablet 100 mg, 1, tablet, By Mouth, Daily, # 30 tablet, Refills 11, Tot. 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) 2, 3 Active Arteriosclerotic heart [...] 25 Active PAF (paroxysmal atrial fibri llation) [id number] 6(Confirmed) Active 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, 27, 28 Active Restless legs syndrome (RLS)(Confirmed) Active Thrombocytopenia(Confirmed) 29, 30 06/22/09 Active Tricuspid insufficiency(Confirmed) Active Trochanteric bursitis of rig ht hip(Confirmed) Active Type 2 diabetes with nephropathy(Confirmed) Active Type 2 diabetes mellitus wit h peripheral angiopathy(Confirmed) Active 1educated about use epi pen /when call 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 12giardiam,o/p ,culture neg 13normal IGA/TTG 14workup 15urology addressing [id number] 17ortho 18chronic 19RFA 20djd xray 2-015 21xray [...]
--- OUTSIDE RECORDS SUMMARY | 2023-10-05 09:58 | XMS_ITS | Continuity of Care Document ---
Author Name Unknown Organization [facility] Kirk Tom lt Address [address] [place] [address]- Care Team Providers Care Architecture Department Chair Name Role Phone Michael Zafar MD Primary Care Physician Encounter [facility] [id number] Date(s): 06/10/22 - 06/17/22 [facility] Adult [address] [place] [address]- Encounter Diagnosis Major depression in full remission(Discharge Diagnosis) - 06/10/22 Attending Physician: Michael Zafar MD Allergies, Adverse [...] Vaccine Date Status Refusal Reason SARS-CoV-2 mRNA ([id number]) vax 1 04/29/22 Given influenza virus vaccine, [...] Given 1Result Comment: [facility]-[id number] 2Result Comment: [facility]# [address] [phone] 3Location History: [place] 4Result Comment: [06/30/2017] HIGH DOSE RECIEVED AT [facility] 5Resconstance Comment: [08/12/2015] Received at [facility] 6Result Comment: Pfizer right deltoid lot [id number] exp 06-06-2021 [facility] 7Admin Note: GIVEN IN CLINIC SHAM [...] 06/03/22 11:47:00 EDT, Route to Pharmacy Electronically, [facility], 175, cm, 06/03/22 11:28:00 EDT, Height, 84.1, kg, 06/07/21 4:26:00 EDT,... Start Date: 06/03/22 Status: Ordered amLODIPine 5 mg oral tablet 1 tablet, By Mouth, Daily, # 90 tablet, 1 Refills, [facility], 175, cm, 02/09/22 10:10:00 [...] 90 tablet, 1 Refills, 05/09/22 6:15:00 EDT, [facility], 175, cm, 04/29/22 10:58:00 EDT, Height, 84.1, kg, 06/07/21 4:26:00 EDT, Dry Weight Start Date: 05/09/22 Status: Ordered Eliquis 2.5 mg oral tablet 1 tablet, By Mouth, 2 times a day, # 180 tablet, 9 Refills, [facility], 175, cm, 02/09/22 10:10:00 [...] 26 tablet, 0 Refills,Maintenance, 06/08/22 15:46:00 EDT, [facility]... Start Date: 06/08/22 Status: Ordered magnesium oxide 400 mg oral tablet 1 tablet, By Mouth, Daily, # 90 tablet, 1 Refills, [facility], 175, cm, 02/09/22 10:10:00 [...] Start Date: 05/05/22 Status: Ordered nystatin topical 062263 u/gm powder 1 application, Topically, 2 times a day, # 60 Gm, 5 Refills, Maintenance, 01/14/22 10:20:00 EST, Powder, [facility], Partial fill upon patient request if the prescription is for a schedule II opioid drug., 1 application Topically... Start Date: 01/14/22 Status: Ordered omeprazole 20 mg oral enteric coated capsule 1 capsule, By Mouth, Daily, # 90 capsule, 0 Refills, 05/13/22 12:10:00 EDT, [facility], 175, cm, 05/12/22 13:46:00 EDT, Height, 84.1, kg, 06/07/21 4:26:00 EDT, Dry Weight Start Date: 05/13/22 Status: Ordered sertraline 50 mg oral tablet 1 tablet = 50 mg, By Mouth, Daily, # 90 tablet, 1 Refills, Maintenance, 06/10/22 17:09:00 EDT, Tablet, [facility], Partial fill upon patient request if the prescription is for a schedule II opioid drug., 175, cm, 06/04/22 11:38:00... Start Date: 06/10/22 Status: Ordered tamsulosin 0.4 mg oral capsule 1, capsule, By Mouth, Daily at bedtime, # 90 capsule, Refills 1, Tot. Refills 1, 05/13/22 12:10:00 EDT, Route to Pharmacy Electronically, [facility], 175, cm, 05/12/22 13:46:00 EDT, Height, 84.1, kg, 06/07/21 4:26:00 EDT, Dry Weight Start Date: 05/13/22 Status: Ordered thiamine 100 mg oral tablet 100 mg, 1, tablet, By Mouth, Daily, # 30 tablet, Refills 11, Tot. 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 12giardiam,o/p ,culture neg 13normal IGA/TTG 14workup 15urology addressing [id number] 17ortho 18chronic 19RFA 20djd xray 2-015 21xray 2004 LS arthritis etc 22BCG 23carcinoma in situ 24saw ortho 25s aw ortho;injected SEVERE pain 26endocrinology addressing 27MRI pti ;refer endo 28mri c spine 2014 29per hematology ? 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;to follow 30workup in progress Diagnosis Diagnosis Type Effective Dates Health Status Clinical Service Informant Major depression in full remission Discharge Diagnosis 06/10/22 Social History Social History Type Response Smoking Status Former smoker, quit more than 30 days ago entered on: 03/01/19 Sex
--- OUTSIDE RECORDS SUMMARY | 2023-10-05 09:59 | XMS_ITS | Continuity of Care Document ---
Author Name Unknown Organization [facility] Tom lt Address [address] [place] [address]- Care Team Providers Care Manager Chemistry Name Role Phone Michael Zafar MD Primary Care Physician [phone] Encounter [facility] Date(s): 04/09/20 - 04/16/20 [facility] Adult [address] [place] [address]- [place] Encounter Diagnosis Depression, major(Discharge Diagnosis) - 04/09/20 Attending Physician: Michael Zafar MD Allergies, Adverse [...] Lucero Comment: [06/30/2017] HIGH DOSE RECIEVED AT [facility] 4Rrenée Comment: [08/12/2015] [place] [facility] [place] Note: given in clinic 6Admin Note: [...] tablet, 3 Refills, Maintenance, 03/05/20 13:50:00EDT, [facility]/pharmacy #[id number], 176.5, cm, 12/25/19 [...] Gm, 0 Refills, Maintenance, 10/10/19 11:35:05 EST, Seth, 1 sprays Nares, Both 2 times a [...] Replace Required Details, Route to Pharmacy Electronically, [facility]/... Start Date: 12/17/19 Status: Ordered [...] 3 Refills, Maintenance, 12/17/19 11:48:00 EST, Tablet, [facility]/pharmacy #[id number], Rx resent from 11/03/16., 176.5, cm, 12/17/19 11:35:00 EST, Height, 83.4, kg, 11/02/18 13:42:00 EST, Dry Weight Start Date: 12/17/19 Status: Ordered LORazepam 2 mg oral tablet 1 tablet = 2 mg, By Mouth, 2 times a day, # 60 tablet, 0 Refills, Maintenance, 03/05/20 13:50:00 EDT, [facility]/pharmacy #[id number], 176.5, cm, 12/25/19 15:48:00 EST, Height, 83.4, kg, 11/02/18 13:42:00 EST, Dry Weight Start Date: 03/05/20 Status: Ordered metoprolol 25 mg oral tablet, extended release 25 mg, 1, tablet, By Mouth, Daily, # 90 tablet, Refills 3, Tot. Refills 3, Maintenance, 03/21/20 12:01:00 EDT, [id number], 176.5, cm, 03/21/20 8:21:00 EDT, Height, 83.4, kg, 11/02/18 13:42:00 EST, Dry Weight Start Date: 03/21/20 Status: Ordered omeprazole 20 mg oral delayed release tablet 1 tablet = 20 mg, By Mouth, Daily, # 90 tablet, 3 Refills, Maintenance, 12/17/19 11:48:00 EST, EC Tablet, [facility]/pharmacy #[id number], 176.5, cm, 12/17/19 11:35:00 EST, Height, 83.4, kg, 11/02/18 13:42:00 EST, Dry Weight Start Date: 12/17/19 Status: Ordered tamsulosin 0.4 mg oral capsule 0.4 mg, By Mouth, Daily at bedtime, # 90 capsule, Refills 3, Tot. 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) 2, 3 Active Arteriosclerotic heart [...] 23 Active PAF (paroxysmal atrial fibri llation) [id number] 6(Confirmed) Active Pituitary microadenoma(Confi rmed) 24, 25, 26 Active Restless legs syndrome (RLS)(Confirmed) Active Thrombocytopenia(Confirmed) 27, 28 06/22/09 Active Tricuspid insufficiency(Confirmed) Active Trochanteric bursitis of rig ht hip(Confirmed) Active Type 2 diabetes with nephropathy(Confirmed) Active Type 2 diabetes mellitus wit h peripheral angiopathy(Confirmed) Active 1educated about use epi pen /when call 2[employer]PENT[employer] PERICARDIAL VALVE [facility] [id number] 41 graft 5CABG 2002 6Dr nini addressing 7nephrolithiasis 8to workup 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 12urology addressing [id number] 14ortho 15chronic 16RFA 17djd xray 2-015 18xray [...] inical Service Informant Depression, major Discharge Diagnosis 04/09/20 Vital Signs Most recent to oldest [Reference Range]: 1 Height 176.5 cm (04/09/20 1:28 PM) Social History Social History Type Response Smoking Status Former smoker, quit more than 30 days ago entered on: 03/01/19 Sex
--- OUTSIDE RECORDS SUMMARY | 2023-10-05 09:59 | XMS_ITS | Continuity of Care Document ---
Author Name Unknown Organization [facility] Address [address] [place] [address]- Care Team Providers Care Private Branch Exchange Service Adviser Name Role Phone Charisma LENZ, Michael [place] Primary Care Physician Encounter [facility] Date(s): 04/21/22 - 05/21/22 [facility] [address] [place] [address]- Attending Physician: Ju Chavez Admitting Physician: AdmJu martinez Referring Physician: AdmtrJu Allergies, Adverse Reactions, Alerts [...] Vaccine Date Status Refusal Reason SARS-CoV-2 mRNA ([id number]) vax 1 04/29/22 Given influenza virus vaccine, [...] Pneumococcal Vaccine (oldterm) 11/07/98 Given 1Result Comment: [facility]-[id number] 2Result Comment: [facility]# [address] [phone] 3Location History: [place] 4Resconstance Comment: [06/30/2017] HIGH DOSE RECIEVED AT [facility] 5Resconstance Comment: [08/12/2015] Received at [facility] 6Result Comment: Pfizer right deltoid lot [id number] exp 06-06-2021 [facility] 7Admin Note: GIVEN IN CLINIC SHAM [...] 03/24/22 10:26:00 EDT, Route to Pharmacy Electronically, [facility], 175, cm, 03/05/22 11:48:00 EDT, Height, 84.1, kg, 06/07/21 4:26:00 EDT,Anil.. Start Date: 03/24/22 Status: Ordered amLODIPine 5 mg oral tablet 1 tablet, By Mouth, Daily, # 90 tablet, 1 Refills, [facility], 175, cm, 02/09/22 [...] 90 tablet, 1 Refills, 05/09/22 6:15:00 EDT, [facility], 175, cm, 04/29/22 10:58:00 EDT, Height, 84.1, kg, 06/07/21 4:26:00 EDT, Dry Weight Start Date: 05/09/22 Status: Ordered Eliquis 2.5 mg oral tablet 1 tablet, By Mouth, 2 times a day, # 180 tablet, 9 Refills, [facility], 175, cm, 02/09/22 10:10:00 EDT, Height, 84.1, kg, 06/07/21 4:26:00 EDT, Dry Weight Start Date: 02/10/22 Status: Ordered LORazepam 1 mg oral tablet 1 tablet = 1 mg, By Mouth, Daily at bedtime, to fill on Monday 03/26 before weekend, # 30 tablet, 0 Refills, Maintenance, 05/18/22 14:34:00 EDT, [facility], 175, cm, 05/12/22 13:46:00 EDT, Height, 84.1, kg, 06/07/21 4:26:00 EDT, Start Date: 05/18/22 Status: Ordered magnesium oxide 400 mg oral tablet 1 tablet, By Mouth, Daily, # 90 tablet, 1 Refills, [facility], 175, cm, 02/09/22 [...] Start Date: 05/05/22 Status: Ordered nystatin topical [id number] u/gm powder 1 application, Topically, 2 times a day, # 60 Gm, 5 Refills, Maintenance, 01/14/22 10:20:00 EST, Powder, [facility], Partial fill upon patient request if the prescription is for a schedule II opioid drug., 1 application Topically... Start Date: 01/14/22 Status: Ordered omeprazole 20 mg oral enteric coated capsule 1 capsule, By Mouth, Daily, # 90 capsule, 0 Refills, 05/13/22 12:10:00 EDT, [facility], 175, cm, 05/12/22 13:46:00 EDT, Height, 84.1, kg, 06/07/21 4:26:00 EDT, Dry Weight Start Date: 05/13/22 Status: Ordered sertraline 25 mg oral tablet 1 tablet = 25 mg, By Mouth, Daily, # 30 tablet, 4 Refills, Maintenance, 04/29/22 11:16:00 EDT, Tablet, [facility], Partial fill upon patient request if the prescription is for a schedule II opioid drug., 175, cm, 04/29/22 10:58:00... Start Date: 04/29/22 Status: Ordered tamsulosin 0.4 mg oral capsule 1, capsule, By Mouth, Daily at bedtime, # 90 capsule, Refills 1, Tot. Refills 1, 05/13/22 12:10:00 EDT, Route to Pharmacy Electronically, [facility], 175, cm, 05/12/22 13:46:00 EDT, Height, 84.1, kg, 06/07/21 4:26:00 EDT, Dry Weight Start Date: 05/13/22 Status: Ordered thiamine 100 mg oral tablet 100 mg, 1, tablet, By Mouth, Daily, # 30 tablet, Refills 11, Tot. 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 12giardiam,o/p ,culture neg 13normal IGA/TTG 14workup 15urology addressing [id number] 17ortho 18chronic 19RFA 20djd xray 2-015 21xray [...]
--- OUTSIDE RECORDS SUMMARY | 2023-10-05 09:59 | XMS_ITS | Continuity of Care Document ---
Author Name Unknown Organization [facility] Tom lt Address [address] [place] [address]- Care Team Providers Care Ham Facer Name Role Phone Michael Zafar MD Primary Care Physician Encounter [facility] [id number] Date(s): 06/03/22 - 06/10/22 [facility] Adult [address] [place] [address]- Encounter Diagnosis Severe major depression(Discharge Diagnosis) - 06/03/22 Chronic gout(Discharge Diagnosis) - 06/03/22 Attending Physician: Michael Zafar MD Allergies, Adverse [...] Vaccine Date Status Refusal Reason SARS-CoV-2 mRNA ([id number]) vax 1 04/29/22 Given influenza virus vaccine, [...] 1Result Comment: [facility] [place][id number] 2Result Comment: [facility] [place] [address] [phone] 3Location History: [place] 4Result Comment: [06/30/2017] HIGH DOSE RECIEVED AT [facility] 5Result Comment: [08/12/2015] Received at [facility] 6Result Comment: Pfizer right deltoid lot [id number] exp 06-06-2021 [facility] 7Admin Note: GIVEN IN CLINIC SHAM [...] 06/03/22 11:47:00 EDT, Route to Pharmacy Electronically, [facility], 175, cm, 06/03/22 11:28:00 EDT, Height, 84.1, kg, 06/07/21 4:26:00 EDT,... Start Date: 06/03/22 Status: Ordered amLODIPine 5 mg oral tablet 1 tablet, By Mouth, Daily, # 90 tablet, 1 Refills, [facility], 175, cm, 02/09/22 10:10:00 [...] 90 tablet, 1 Refills, 05/09/22 6:15:00 EDT, [facility], 175, cm, 04/29/22 10:58:00 EDT, Height, 84.1, kg, 06/07/21 4:26:00 EDT, Dry Weight Start Date: 05/09/22 Status: Ordered Eliquis 2.5 mg oral tablet 1 tablet, By Mouth, 2 times a day, # 180 tablet, 9 Refills, [facility], 175, cm, 02/09/22 10:10:00 [...] 26 tablet, 0 Refills,Maintenance, 06/08/22 15:46:00 EDT, [facility]... Start Date: 06/08/22 Status: Ordered magnesium oxide 400 mg oral tablet 1 tablet, By Mouth, Daily, # 90 tablet, 1 Refills, [facility], 175, cm, 02/09/22 10:10:00 [...] Start Date: 05/05/22 Status: Ordered nystatin topical [id number] u/gm powder 1 application, Topically, 2 times a day, # 60 Gm, 5 Refills, Maintenance, 01/14/22 10:20:00 EST, Powder, [facility], Partial fill upon patient request if the prescription is for a schedule II opioid drug., 1 application Topically... Start Date: 01/14/22 Status: Ordered omeprazole 20 mg oral enteric coated capsule 1 capsule, By Mouth, Daily, # 90 capsule, 0 Refills, 05/13/22 12:10:00 EDT, [facility], 175, cm, 05/12/22 13:46:00 EDT, Height, 84.1, kg, 06/07/21 4:26:00 EDT, Dry Weight Start Date: 05/13/22 Status: Ordered sertraline 50 mg oral tablet 1 tablet = 50 mg, By Mouth, Daily, # 90 tablet, 1 Refills, Maintenance, 06/10/22 17:09:00 EDT, Tablet, [facility], Partial fill upon patient request if the prescription is for a schedule II opioid drug., 175, cm, 06/04/22 11:38:00... Start Date: 06/10/22 Status: Ordered tamsulosin 0.4 mg oral capsule 1, capsule, By Mouth, Daily at bedtime, # 90 capsule, Refills 1, Tot. Refills 1, 05/13/22 12:10:00 EDT, Route to Pharmacy Electronically, [facility], 175, cm, 05/12/22 13:46:00 EDT, Height, 84.1, kg, 06/07/21 4:26:00 EDT, Dry Weight Start Date: 05/13/22 Status: Ordered thiamine 100 mg oral tablet 100 mg, 1, tablet, By Mouth, Daily, # 30 tablet, Refills 11, Tot. 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 12giardiam,o/p ,culture neg 13normal IGA/TTG 14workup 15urology addressing [id number] 17ortho 18chronic 19RFA 20djd xray 2-015 21xray 2004 LS arthritis etc 22BCG 23carcinoma in situ 24saw ortho 25s aw ortho;injected SEVERE pain 26endocrinology addressing 27MRI pti ;refer endo 28mri c spine 2014 29per hematology ? 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 Lidocaine was instilled per urethra. Flexible cystoscopy was performed. There is no evidence of urethral stricture disease. The prostate was enlarged with trilobar hypertrophy and evidence of bladder outlet obstruction. Upon entering the bladder I performed cystoscopy. There was no obvious papillary bladder tumors or disease. The patient did become uncomfortable during the procedure and I did not have a lot of time to carefully look at the entire urothelium but gross inspection with retroflexion did not show any obvious large bladder tumors. Vital Signs Most recent to oldest [Reference Range]: 1 Height 175 cm (06/03/22 11:28 AM) Weight 82.6 kg (06/03/22 11:28 AM) Oxygen Saturation [94-100 %] 97 % (06/03/22 11:28 AM) Pulse Rate [55-90 bpm] 85 bpm (06/03/22 11:28 AM) Body Mass Index [18.5-24.99] 26.97 *H* (06/03/22 11:28 AM) Blood Pressure [90-138/55-84 mm Hg] 108/ 70mm Hg (06/03/22 11:28 AM) Respiratory Rate [16-30 br/min] 16 br/mi n (06/03/22 11:28 AM) Temperature [96.8-100.4 DegF] 97.9 DegF (06/03/22 11:28 AM) Mode of Delivery (Oxygen) Room air (06/03/22 11:28 AM) Blood pressure sites Arm, right (06/03/22 11:28 AM) Temperature Route Oral (06/03/22 11:28 AM) Weight Obtained Via Standing scale (06/03/22 11:28 AM) Social History Social History Type Response Smoking Status Former smoker, quit more than 30 days ago entered on: 03/01/19 Sex
--- OUTSIDE RECORDS SUMMARY | 2023-10-05 09:59 | XMS_ITS | Continuity of Care Document ---
Author Name Unknown Organization [facility] Address [address] [place] [address]- Care Team Providers Care Sailor Name Role Phone Charisma LENZ, Michael Bsoton Primary Care Physician [phone] Encounter [facility] Date(s): 11/27/20 - 12/27/20 [facility] [address] [place] [address]- Attending Physician: Ju Chavez Admitting Physician: AdmJu martinez Referring Physician: Admtr, Ju Allergies, Adverse Reactions, Alerts Substance Reaction Severity [...] Bradford Comment: [06/30/2017] HIGH DOSE RECIEVED AT [facility] DR Lucero Comment: [08/12/2015] Received at [facility] 4Admin Note: GIVEN IN [...] 10/20/20 11:45:00 EST, [id number], cm, 10/20/20 11:12:00 EST, Height, 80.6, kg, 08/05/20 17:31:00 EDT, Dry Weight Start Date: 10/20/20 Status: Ordered amLODIPine 5 mg oral tablet 5 mg, 1, tablet, By Mouth, Daily, # 30 tablet, Refills 3, Tot. Refills 3, Maintenance, 12/05/20 9:44:00 EST, [id number] 175, cm, 12/05/20 8:32:00 [...] 30 tablet, 0 Refills, Maintenance, 12/09/20 10:18:00EST, [facility]/pharmacy #[id number], 175, cm, 12/05/20 [...] 12/17/19 11:48:00 EST, Route to Pharmacy Electronically, [facility]/pharmacy #[id number], 176.5, cm, 12/17/19 11:35:00 EST, Height, 83.4, kg, 11/02/18 13:42:00 EST, Dry Weight Start Date: 12/17/19 Status: Ordered thiamine 100 mg oral tablet 100 mg, 1, tablet, By Mouth, Daily, # 30 tablet, Refills 11, Tot. 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) 2, 3 Active Arteriosclerotic heart [...] 25 Active PAF (paroxysmal atrial fibri llation) [id number] 6(Confirmed) Active 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, 27, 28 Active Restless legs syndrome (RLS)(Confirmed) Active Thrombocytopenia(Confirmed) 29, 30 06/22/09 Active Tricuspid insufficiency(Confirmed) Active Trochanteric bursitis of rig ht hip(Confirmed) Active Type 2 diabetes with nephropathy(Confirmed) Active Type 2 diabetes mellitus wit h peripheral angiopathy(Confirmed) Active 1educated about use epi pen /when call 2[employer] PERICARDIAL VALVE [facility] [address] 41 graft 5CABG 2002 6Dr nini addressing 7nephrolithiasis 8to workup 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 12giardiam,o/p ,culture neg 13normal IGA/TTG 14workup 15urology addressing [id number] 17ortho 18chronic 19RFA 20djd xray 2-015 21xray [...]
--- OUTSIDE RECORDS SUMMARY | 2023-10-05 09:59 | XMS_ITS | Continuity of Care Document ---
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 Name Role Phone [facility] DIRECT[facility], Giovana Chiu Primary Care Physician Encounter [facility] Date(s): 12/13/22 - 01/12/23 [facility] Adult [address] [place] [address]- Allergies, Adverse Reactions, Alerts Substance Reaction Severity Status lisinopril 1, 2 Active Remeron 3 dizziness Active Welchol muscle and joint aches Activ e carvedilol 4 Active citalopram dizzy Active Percocet vomiting Active Effexor dizziness Active Bee Stings Active Percocet 5/325 [...] vaccine, inactivated 11/27/10 Give n SARS-CoV-2 mRNA (bhapapt-hnpr-uhczy) vax 5 04/29/22 Given SARS-CoV-2 (COVID-19) mRNA [...] Pneumococcal Vaccine (oldterm) 11/07/98 Given 1Result Comment: [facility]# [address] [phone] 2Location History: [place] 3Result Comment: [06/30/2017] HIGH DOSE RECIEVED AT [facility] 4Resconstance Comment: [08/12/2015] Received at [facility] 5Result Comment: [facility]-[id number] 6Result Comment: Pfizer right deltoid lot [id number] exp 06-06-2021 [facility] 7Admin Note: GIVEN IN CLINIC [...] 09/05/22 12:57:00 EDT, Route to Pharmacy Electronically, [facility], 175, cm, 07/22/22 14:43:00 EDT, Height, 84.1, kg, 06/07/21 4:26:00 EDT, Dry Weight Start Date: 09/05/22 Status: Ordered amLODIPine 5 mg oral tablet 1 tablet, By Mouth, Daily, # 90 tablet, 1 Refills, Maintenance, 08/07/22 10:52:00 EDT, [facility], 175, cm, 07/22/22 14:43:00 [...] 90 tablet, 1 Refills, 11/24/22 14:41:00 EST, [facility], 175, cm, 09/29/22 12:43:00 EST, Height, 84.1, kg, 06/07/21 4:26:00 EDT, Dry Weight Start Date: 11/24/22 Status: Ordered Eliquis 2.5 mg oral tablet 1 tablet, By Mouth, 2 times a day, # 180 tablet, 9 Refills, [facility], 175, cm, 02/09/22 10:10:00 EDT, Height, 84.1, kg, 06/07/21 4:26:00 EDT, Dry Weight Start Date: 02/10/22 Status: Ordered LORazepam 1 mg oral tablet 1 tablet = 1 mg, By Mouth, Daily at bedtime, 11/09 - 01/07/2312/10 delivery Tuesday02/04/23, start taking02/06/2301/07 - 03/08/23, # 30 tablet, 2 Refills, Maintenance, 11/24/22 14:36:00 EST, [facility], 175, cm, 09/29/22 12:43:00 EST... Start Date: 11/24/22 Status: Ordered magnesium oxide 400 mg oral tablet 1 tablet, By Mouth, Daily, # 90 tablet, 11 Refills, Maintenance, 08/09/22 9:27:00 EDT, [facility], 175, cm, 07/22/22 14:43:00 EDT, Height, 84.1, kg, 06/07/21 4:26:00 EDT, Dry Weight Start Date: 08/09/22 Status: Ordered MethylPREDNISolone Dose Pack 4 mg oral tablet 0 Refills, Maintenance, 12/17/22 13:11:00 EST, Partial fill upon patient request if the prescription is for a schedule II opioid drug. Start Date: 12/17/22 Status: Ordered nystatin topical 895030 u/gm powder 1 application, Topically, 2 times a day, # 60 Gm, 5 Refills, Maintenance, 01/14/22 10:20:00 EST, Powder, [facility], Partial fill upon patient request if the prescription is for a schedule II opioid drug., 1 application Topically... Start Date: 01/14/22 Status: Ordered omeprazole 20 mg oral enteric coated capsule 1 capsule, By Mouth, Daily, # 90 capsule, 0 Refills, Maintenance, 11/24/22 14:41:00 EST, [facility], 175, cm, 09/29/22 12:43:00 [...] 11/24/22 14:41:00 EST, Route to Pharmacy Electronically, [facility], 175, cm, 09/29/22 12:43:00 EST, Height, 84.1, kg, 06/07/21 4:26:00 EDT, Dry Weight Start Date: 11/24/22 Status: Ordered Vitamin B1 100 mg oral tablet 1, tablet, By Mouth, Daily, # 30 tablet, Refills 11, Maintenance, 08/09/22 9:27:00 EDT, Route to Pharmacy Electronically, [facility], 175, cm, 07/22/22 14:43:00 [...] Active Anxiety Confirmed Active Aortic valve prosthesis [id number] TAVR 2017 2, 3 Confirmed Active Arteriosclerotic [...] 2014 12, 13, 14 Confirmed Active Self-care deficit.care provider Confirmed Active Elevated PSA 15 Confirmed Active [...] Confirmed 07/22/22 Active PAF (paroxysmal atrial fibrillation) [id number] 6 Confirmed Active Pituitary microadenoma 26, 27, [...] pen /when call 2[facility] PERICARD[facility]VE [facility] [address] 41 graft 5CABG 2002 6Dr nini addressing 7nephrolithiasis 8to workup 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 12giardiam,o/p ,culture neg 13normal IGA/TTG 14workup 15urology addressing [id number] 17ortho 18chronic 19RFA 20djd xray 2-015 21xray [...] Team Personnel Name: Raina Westbrook RN Position: [facility] RN Member Role: Primary Care Nurse Name: Giovana Dodd NP Position: [facility] PCO Associate Professional Member Role: PCP Address: Address: [address] [place] [phone]- [place] Name: Adam Dennis MD Position: [facility] Cardiology MD Member Role: Lifetime Consulting Physician Address: Address: [address] [place] [address] [address] [place] [phone]- [place] Name: Julia Yu RN Position: S RN Member Role: Primary Care Nurse Name: Jo Dillon RN Position: S RN Member Role: Primary Care Nurse Name: Anh Pires RN Position: S RN Member Role: Primary Care Nurse Name: Lonnie Puente Position: S RN Member Role: Primary Care Nurse Name: Jaqueline Johnson RN Position: [facility] RN Member Role: Primary Care Nurse Name: Kathy Garcia RN Position: S RN Member Role: Primary Care Nurse Name: Vale CHUN, Viki Eduardo Position: S RN Member Role: Primary Care Nurse Care Team Related Persons Name: JANN HENRIQUEZIN Address: [address] [place] [address] Name: JOSEFINA CONTRERAS Address: home [address] [place] [address]
--- OUTSIDE RECORDS SUMMARY | 2023-10-05 09:59 | XMS_ITS | Continuity of Care Document ---
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 Name Role Phone Leo Breen DO Primary Care Physician Encounter [facility] [place] Date(s): 04/18/23 - 05/28/[address] [address] Attending Physician: Richard Abel MD Admitting Physician: Richard Abel MD Referring Physician: Richard Abel MD Allergies, Adverse Reactions, Alerts Substance Reaction [...] 03/16/23 Given influenza virus vaccine, inactivated 08/24/22 Naton rded influenza virus vaccine, inactivated 2 08/12/21 [...] vaccine, inactivated 11/27/10 Give n SARS-CoV-2 mRNA (yxgvznw-zvyw-tfpik) vax 6 04/29/22 Given SARS-CoV-2 (COVID-19) mRNA [...] Pneumococcal Vaccine (oldterm) 11/07/98 Given 1Result Comment: [id number] 2Result Comment: [facility]# [address] [phone] 3Location History: [place] 4Result Comment: [06/30/2017] HIGH DOSE RECIEVED AT [facility] 5Result Comment: [08/12/2015] Received at [facility] [place] [facility] 6Result Comment: [facility]-[id number] 7Result Comment: Pfizer right deltoid lot [id number] exp 06-06-2021 [facility] 8Admin Note: GIVEN IN CLINIC [facility] 9Admin [...] 04/07/23 14:29:00 EDT, Route to Pharmacy Electronically, [facility], 175, cm, 03/16/23 12:17:00 EDT, Height, 84.1, kg, 06/07/21 4:26:00 EDT, Dry Weight Start Date: 04/07/23 Status: Ordered amLODIPine 5 mg oral tablet 1 tablet, By Mouth, Daily, # 90 tablet, 1 Refills, Maintenance, 08/07/22 10:52:00 EDT, [facility], 175, cm, 07/22/22 14:43:00 [...] tablet, 1 Refills, Maintenance, 05/13/23 10:04:00 EDT, [facility], 175, cm, 04/12/23 11:54:00 EDT, Height, 84.1, kg, 06/07/21 4:26:00 EDT, Dry Weight Start Date: 05/13/23 Status: Ordered Eliquis 2.5 mg oral tablet 1 tablet, By Mouth, 2 times a day, # 180 tablet, 9 Refills, 02/18/23 17:26:00 EDT, [facility], 175, cm, 01/24/23 11:05:00 EDT, Height, 84.1, kg, 06/07/21 4:26:00 EDT, Dry Weight Start Date: 02/18/23 Status: Ordered LORazepam 1 mg oral tablet 1 tablet = 1 mg, By Mouth, Daily at bedtime, PRN as needed for anxiety, # 30 tablet, 1 Refills, Maintenance, 05/19/23 13:26:00 EDT, [facility], 175, cm, 04/12/23 11:54:00 EDT, Height, 84.1, kg, 06/07/21 4:26:00 EDT, Dry Weight Start Date: 05/19/23 Status: Ordered magnesium oxide 400 mg oral tablet 1 tablet, By Mouth, Daily, # 90 tablet, 11 Refills, Maintenance, 08/09/22 9:27:00 EDT, [facility], 175, cm, 07/22/22 14:43:00 EDT, Height, 84.1, kg, 06/07/21 4:26:00 EDT, Dry Weight Start Date: 08/09/22 Status: Ordered Melatonin Daily at bedtime, 0 Refills, Maintenance, 01/24/23 11:27:00 EDT Start Date: 01/24/23 Status: Ordered nystatin topical 371768 u/gm powder 1 application, Topically, 2 times a day, # 60 Gm, 1 Refills, Maintenance, 04/08/23 10:05:00 EDT, Powder, [facility], 1 application Topically 2 times a day, 175, cm, 03/16/23 12:17:00 EDT, Height, 84.1, kg, 06/07/21 4:26:00 EDT, . Start Date: 04/08/23 Status: Ordered omeprazole 20 mg oral enteric coated capsule 1 capsule, By Mouth, Daily, # 90 capsule, 0 Refills, Maintenance, 03/08/23 9:16:00 EDT, [facility], 175, cm, 01/24/23 11:05:00 EDT, Height, 84.1, kg, 06/07/21 4:26:00 EDT, Dry Weight Start Date: 03/08/23 Status: Ordered tamsulosin 0.4 mg oral capsule 1, capsule, By Mouth, Daily at bedtime, # 90 capsule, Refills 1, Maintenance, 05/13/23 10:04:00 EDT, Route to Pharmacy Electronically, [facility], 175, cm, 04/12/23 11:54:00 EDT,Height, 84.1, kg, 06/07/21 4:26:00 EDT, Dry Weight Start Date: 05/13/23 Status: Ordered Vitamin B1 100 mg oral tablet 1, tablet, By Mouth, Daily, # 30 tablet, Refills 11, Maintenance, 08/09/22 9:27:00 EDT, Route to Pharmacy Electronically, [facility], 175, cm, 07/22/22 14:43:00 [...] Active Anxiety Confirmed Active Aortic valve prosthesis [id number] TAVR 2017 1, 2 Confirmed Active Arteriosclerotic [...] Confirmed 07/22/22 Active PAF (paroxysmal atrial fibrillation) [id number] 6 Confirmed Active 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 11giardiam,o/p ,culture neg 12normal IGA/TTG 13workup [id number] 15chronic 16RFA 17djd xray 2-015 18xray 2004 [...] Team Personnel Name: Giovana Dodd NP [facility] PCO Associate Professional Member Role: Lifetime Consulting Provider Address: Address: [address] [place] [address]- Name: Adam Dennis MD Position: [facility] Cardiology MD Member Role: Lifetime Consulting Physician Address: Address: [address] [place] [address] [address] [place] [phone]- Name: Julia Yu RN Position: [facility] RN Member Role: Primary Care Nurse Name: Jo Dillon RN Position: [facility] RN Member Role: Primary Care Nurse Name: Anh Pirse RN Position: [facility] RN Member Role: Primary Care Nurse Name: Lonnie Puente Position: S RN Member Role: Primary Care Nurse Name: Jaqueline Johnson RN Position: [facility] RN Member Role: Primary Care Nurse Name: Leo Breen DO Position: [facility] Physician - Primary Care Member Role: PCP Address: Address: [address] [place] [address] [place] [address]- Name: Viki Collazo RN Position[facility] RN Member Role: Primary Care Nurse Care Team Related Persons Name: SARWAT HENRIQUEZ Address: [address] [place] [address] Name: JOSEFINA CONTRERAS Address: home [address] [facility] [place] [address]
--- OUTSIDE RECORDS SUMMARY | 2023-10-05 09:59 | XMS_ITS | Continuity of Care Document ---
Author Name Unknown Organization [facility] ter Address [address] [place] [id number]- Care Team Providers Care Lump Roller Name Role Phone Charisma LENZ, Michael [place] Primary Care Physician [place] [facility] [place] 08[place] - 08/08/[address] [address]- [facility] Discharge Disposition: Disch/Trans to IP Rehab or unit w/in Hos Attending Physician: Izzy LENZ, Tab Bergeron Admitting Physician: Mike Hayes MD Referring Physician: Not on Staff, Referring [...] Bradford Comment: [06/30/2017] HIGH DOSE RECIEVED AT [facility] DR Lucero Comment: [08/12/2015] [place] [facility] [place] 4Admin Note: GIVEN IN CLINIC SHAM 5Admin [...] 2 times a day, # 6 LOT [id number] EXP 2, # 180 tablet, 0 Refills, Maintenance, 06/13/20 11:45:00 EDT, Dry Weight Start Date: 06/13/20 Status: Ordered apixaban 2.5 mg oral tablet 1 tablet = 2.5 mg, By Mouth, 2 times a day, # 180 tablet, 3 Refills, Maintenance, 03/05/20 13:50:00EDT, [facility]/pharmacy #[id number], 176.5, cm, 12/25/19 15:48:00 EST, Height, 83.4, kg, 11/02/18 13:42:00 EST,Dry Weight Start Date: 03/05/20 Status: Ordered aspirin 81 mg oral tablet 1 tablet = 81 mg, By Mouth, Daily, # 90 tablet, 3 Refills, 1 tablet By Mouth Daily,x90 days Start Date: 10/26/13 Stop Date: 10/21/14 Status: Ordered atorvastatin 40 mg oral tablet 1 tablet = 40 mg, By Mouth, Daily, # 30 tablet, 0 Refills, Maintenance, 08/05/20 17:06:00 EDT, Tablet Start Date: 08/05/20 Status: Ordered Eliquis 2.5 mg oral tablet TAKE 1 TABLET BY MOUTH TWICE A DAY Start Date: 08/05/20 Status: Ordered Flonase 50 mcg/inh nasal spray 1 sprays, Nares, Both, 2 times a day, # 16 Gm, 0 Refills, Maintenance, 10/10/19 11:35:05 EST, [place], 1 sprays Nares, Both 2 times a day, 176.5, cm, 10/10/19 11:18:43 EST, Height, 83.4, kg, 11/02/18 13:42:46 EST, Dry Weight Start Date: 10/10/19 Status: Ordered furosemide 20 mg oral tablet 20 mg, 1, tablet, By Mouth, Daily, # 30 tablet, Refills 0, Maintenance, 08/05/20 17:07:00 EDT Start Date: 08/05/20 Status: Ordered Lasix 20 mg oral tablet [...] 1 tablet = 2 mg, By Mouth, Daily at bedtime, for 14 days, # 14 tablet, 0 Refills, Acute 08/22/20 9:44:00 EDT, 08/08/20 9:44:00 EDT, Tablet Start Date: 08/08/20 Stop Date: 08/22/20 Status: Ordered LORazepam 2 mg oral tablet 1 tablet = 2 mg, By Mouth, 2 times a day, # 60 tablet, 0 Refills, Maintenance, 06/16/20 13:49:00 EDT, [facility]/pharmacy #[id number], 176.5, cm, 06/13/20 12:04:00 EDT, Height, 83.4, kg, 11/02/18 13:42:00 EST, Dry Weight Start Date: 06/16/20 Status: Ordered magnesium oxide 400 mg oral tablet 1 tablet = 400 mg, By Mouth, 2 times a day, # 60 tablet, 3 Refills, Maintenance, 06/16/20 11:54:00 EDT, [facility]/pharmacy #[id number], 176.5, cm, 06/13/20 12:04:00 [...] 06/16/20 9:41:00 EDT, Route to Pharmacy Electronically, [facility]/pharmacy #[id number], succinate, 176.5, cm, 06/13/20 12:04:00 EDT, Height, 83.4, kg, 11/02/18 13:42:00 EST, D... Start Date: 06/16/20 Stop Date: 06/11/21 Status: Ordered omeprazole 20 mg oral delayed release tablet 1 tablet = 20 mg, By Mouth, Daily, # 90 tablet, 3 Refills, Maintenance, 12/17/19 11:48:00 EST, EC Tablet, [facility]/pharmacy #[id number], 176.5, cm, 12/17/19 11:35:00 EST, Height, 83.4, kg, 11/02/18 13:42:00 EST, Dry Weight Start Date: 12/17/19 Status: Ordered oxyCODONE 5 mg oral tablet 5 mg, 1, tablet, By Mouth, Every 6 hours, PRN, for 5 days, # 20 tablet, Refills 0, Tot. Refills 0, Acute 08/13/20 9:44:00 EDT, Pain , Moderate, 08/08/20 9:44:00 EDT, Print Requisition, Partial fill upon patient request Start Date: 08/08/20 Stop Date: 08/13/20 Status: Ordered predniSONE 20 mg oral tablet 2 tablet = 40 mg, By Mouth, Daily, # 6 tablet, 0 Refills, Maintenance, 08/08/20 9:44:00 EDT, Tablet Start Date: 08/08/20 Stop Date: 08/11/20 Status: Ordered tamsulosin 0.4 mg oral capsule 0.4 mg, 1, capsule, By Mouth, Daily, # 30 capsule, Refills 0, Maintenance, 08/05/20 17:07:00 EDT Start Date: 08/05/20 Status: Ordered tamsulosin 0.4 mg oral capsule 0.4 mg, By Mouth, Daily at bedtime, # 90 capsule, Refills 3, Tot. Refills 3, Maintenance, 12/17/19 11:48:00 EST, Route to Pharmacy Electronically, 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) 2, 3 Active Arteriosclerotic heart [...] 26 Active PAF (paroxysmal atrial fibri llation) [id number] 6(Confirmed) Active Pituitary microadenoma(Confi rmed) 27, 28, 29 Active Restless legs syndrome (RLS)(Confirmed) Active Thrombocytopenia(Confirmed) 30, 31 06/22/09 Active Tricuspid insufficiency(Confirmed) Active Trochanteric bursitis of rig ht hip(Confirmed) Active Type 2 diabetes with nephropathy(Confirmed) Active Type 2 diabetes mellitus wit h peripheral angiopathy(Confirmed) Active 1educated about use epi pen /when call 2[employer] PERICARDIAL VALVE [facility] [address] 41 graft 5CABG 2002 6Dr nini addressing 7nephrolithiasis 8to workup 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 12giardiam,o/p ,culture neg 13normal IGA/TTG 14workup 15urology addressing [id number] 17ortho 18chronic 19RFA 20djd xray 2-015 21xray 2004 LS arthritis etc 22Zung=mod depression 23BCG 24carcinoma in situ 25saw ortho 26s aw ortho;injected SEVERE pain 27endocrinology addressing 28MRI pti ;refer endo 29mri c spine 2014 30per hematology ? 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;to follow 31workup in progress Results Orders for Microbiology Reports Name Date Sterile Body Fluid Culture W/ Gram Smear 08/04/20 Blood Culture 08/04/20 Blood Culture #2 08/04/20 Urine Culture 08/04/20 Anaerobic Culture (ANAEROBIC CULTURE) Microbiology Reports TEST:Urine Culture STATUS:Auth (Verified) BODY SITE: SOURCE:URINE COLLECTED DATE/TIME:08/05/20 9:55 AM Urine Culture SPECIMEN DESCRIPTION : URINE CLEAN CATCH/MIDSTREAM SPECIAL REQUESTS : NONE CULTURE : NO GROWTH REPORT STATUS : FINAL 08/06/2020 TEST:Blood Culture, Second Order STATUS:Unauthenticated BODY SITE: SOURCE:Blood COLLECTED DATE/TIME:08/04/20 4:50 PM Blood Culture, Second Order SPECIMEN DESCRIPTION : BLOOD RAC SPECIAL REQUESTS : NONE CULTURE : NO GROWTH 4 DAYS REPORT STATUS : PRELIMINARY REPORT TEST:Anaerobic Culture STATUS:Unauthenticated BODY SITE: SOURCE:JOINT COLLECTED DATE/TIME:08/04/20 2:25 PM Anaerobic Culture SPECIMEN DESCRIPTION : JOINT FLUID SPECIAL REQUESTS : NONE CULTURE : NO ANAEROBES ISOLATED SO FAR. REPORT STATUS : PRELIMINARY REPORT TEST:Sterile Fluid Culture STATUS:Auth (Verified) BODY SITE: SOURCE:JOINT COLLECTED DATE/TIME:08/04/20 2:25 PM Sterile Fluid Culture SPECIMEN DESCRIPTION : JOINT FLUID SPECIAL REQUESTS : NONE GRAM STAIN : 2+ POLYMORPHONUCLEAR LEUKOCYTES NO ORGANISMS SEEN CULTURE : NO GROWTH 2 DAYS REPORT STATUS : FINAL 08/07/2020 TEST:Blood Culture STATUS:Unauthenticated BODY SITE: SOURCE:Blood COLLECTED DATE/TIME:08/04/20 2:20 PM Blood Culture SPECIMEN DESCRIPTION : BLOOD NO SITE SPECIAL REQUESTS : NONE CULTURE : NO GROWTH 4 DAYS REPORT STATUS : PRELIMINARY REPORT Radiology Reports * Exam Date Time Procedure Performing Provider Status 08/05/20 11:53 AM Wrist Comp Min 3 Views Right Yi Escobar; Auth (Verified) Notes: (Wrist Comp Min 3 Views Right) Reason For Exam: Pain RESULT: Wrist Comp Min 3 Views Right Wrist Comp Min 3 Views Right Reason: Pain; Clinical Question(s): Fracture COMPARISON: None. FINDINGS: No acute fracture is seen. There is abnormal widening of the scapholunate interval with proximal migration of the capitate. There is joint space narrowing and bony remodeling of the radiocarpal jointas well as the articulation of the lunate and proximal hamate. Mild bony proliferation is seen of the first carpometacarpal joint and there is mild degenerative change at the articulation of the distal radioulnar joint. Chondrocalcinosis is seen. There is dorsal soft tissue swelling in the wrist. Vascular calcifications are noted. IMPRESSION: 1. Scapholunate advanced collapse with degenerative change of the radiocarpal joint and articulation of the lunate and hamate. 2. 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 WSN: [id number] Ordering Physician: Davidson Guevara Dictated By: Allie Dee MD Dictated Date/Time: 08/05/20 12:11 p Reviewed By: Allie Dee MD Signed By: Allie Dee MD Signed Date/Time: 08/05/20 12:11 pm Transcribed By: WOJCIECH Transcribed Date/Time: 08/05/20 12:05 pm * Exam Date Time Procedure Performing Provider Status 08/04/20 3:57 PM Chest Portable Claudette Stein; Auth (Verified) Notes: (Chest Portable) Reason For Exam: Fever RESULT: Chest Portable Chest Portable Hx of Present Illness: AMS; Reason: Fever; Clinical Question(s): Pneumonia COMPARISON: None. FINDINGS: No acute cardiopulmonary process IMPRESSION: No acute abnormality. WSN: [id number] Ordering Physician: Mazin Mcconnell Dictated By: Tab Nino MD Dictated Date/Time: 08/04/20 4:04 pm Reviewed By: Tab Nino MD Signed By: Tab Nino MD Signed Date/Time: 08/04/20 4:04 pm Transcribed By: WOJCIECH Transcribed Date/Time: 08/04/20 4:03 pm * Exam Date Time Procedure Performing Provider Status 08/04/20 3:57 PM Knee 1 or 2 Views Left Talia Stein y; Auth (Verified) Notes: (Knee 1 or 2 Views Left) Reason For Exam: fever, effusion, ? prior surgery;Infection RESULT: Knee 1 or 2 Views Left Knee 1 or 2 Views Left, 2 views Hx of Present Illness: AMS; Reason: Infection; fever, effusion, ? prior surgery; Clinical Question(s): Fracture COMPARISON: None. FINDINGS: There is no evidence of acute or healing fracture, dislocation or bone lesion. Mild tricompartmental degenerative osteoarthritis but no evidence of osteochondral defect or intra-articular loose body. Mild chondrocalcinosis. Probable suprapatellar joint effusion. Extensive vascular calcifications. IMPRESSION: No acute fracture or dislocation. Probable joint effusion. Mild degenerative changes. WSN: [id number] Ordering Physician: Mazin Mcconnell Dictated By: Felipe Doyle MD Dictated Date/Time: 08/04/20 4:04 pm Reviewed By: Felipe Doyle MD Signed By: Felipe Doyle MD Signed Date/Time: 08/04/20 4:04 pm Transcribed By: WOJCIECH Transcribed Date/Time: 08/04/20 4:00 pm Vital Signs Most recent to oldest [Reference Range]: 1 2 3 Height 175 cm (08/08/20 7:55 AM) 175 cm (08/07/20 8:31 PM) 175 cm (08/07/20 7:43 AM) Weight 80.6 kg (08/05/20 5:31 PM) Oxygen Saturation [94-100 %] 96 % (08/08/20 7:55 AM) 98 % (08/07/20 8:31 PM) 97 % (08/07/20 7:43 AM) Pulse Rate [55-90 bpm] 54 bpm *L* (08/08/20 7:55 AM) 47 bpm *L* (08/07/20 8:31 PM) 50 bpm *L* (08/07/20 7:43 AM) Body Mass Index [18.5-24.99] 26.32 *H* (08/05/20 5:31 PM) Blood Pressure [90-138/55-84 mm Hg] 129/75mm Hg (08/08/20 7:55 AM) 144/74mm Hg *H* (08/07/20 8:31 PM) 140/75mm Hg *H* (08/07/20 7:43 AM) Respiratory Rate [16-30 br/min] 20 br/min (08/08/20 7:55 AM) 20 br/min (08/07/20 8:31 PM) 20 br/min (08/07/20 7:43 AM) Temperature [96.8-100.4 DegF] 97.3 DegF (08/08/20 7:55 AM) 97.6 DegF (08/07/20 8:31 PM) 97.9 DegF (08/07/20 7:43 AM) Mode of Delivery (Oxygen) Room air (08/08/20 7:55 AM) Room air (08/07/20 8:31 PM) Room air (08/07/20 7:43 AM) Blood pressure sites Arm, right (08/08/20 7:55 AM) Arm, right (08/07/20 8:31 PM) Arm, right (08/07/20 7:43 AM) Temperature Route Oral (08/08/20 7:55 AM) Oral (08/07/20 8:31 PM) Oral (08/07/20 7:43 AM) Dry Weight 80.6 kg (08/05/20 5:31 PM) Weight Obtained Via Bed scale (08/05/20 5:31 PM) Dry Weight Obtained Via Bed scale (08/05/20 5:31 PM) Social History Social History Type Response Smoking Status Former smoker, quit more than 30 days ago entered on: 03/01/19 Sex
--- OUTSIDE RECORDS SUMMARY | 2023-10-05 09:59 | XMS_ITS | Continuity of Care Document ---
Author Name Unknown Organization [facility] Kirk Tom lt Address [address] [place] [address]- Care Team Providers Care Tube And Rod Straightener Name Role Phone Giovana Dodd NP Primary Care Physician [place] [facility] [place]): 03/08/23 - 04/13/23 [facility] [address] [place] [address]- Attending Physician: Not on Staff, Attending MD Referring Physician: Giovana Dodd NP Allergies, Adverse Reactions, Alerts Substance Reaction Severity Status lisinopril 1, 2 Active Bee Stings Active Welchol muscle and joint aches Activ e carvedilol 3 Active citalopram dizzy Active Percocet vomiting Active Effexor dizziness Active Remeron 4 dizziness Active Percocet 5/325 5 Active Lactose 6, [...] vaccine, inactivated 11/27/10 Give n SARS-CoV-2 mRNA ([id number]) vax 6 04/29/22 Given SARS-CoV-2 (COVID-19) mRNA [...] Pneumococcal Vaccine (oldterm) 11/07/98 Given 1Result Comment: [id number] 2Result Comment: [facility]# [address] [id number] 3Location History: [place] 4Result Comment: [06/30/2017] HIGH DOSE RECIEVED AT [facility] [place] 5Result Comment: [08/12/2015] [place] [facility] [place] Comment: [facility]-[id number] 7Result Comment: Pfizer right deltoid lot [id number] exp 06-06-2021 [facility] 8Admin Note: GIVEN IN CLINIC SHAM 9Admin [...] 04/07/23 14:29:00 EDT, Route to Pharmacy Electronically, [facility], 175, cm, 03/16/23 12:17:00 EDT, Height, 84.1, kg, 06/07/21 4:26:00 EDT, Dry Weight Start Date: 04/07/23 Status: Ordered amLODIPine 5 mg oral tablet 1 tablet, By Mouth, Daily, # 90 tablet, 1 Refills, Maintenance, 08/07/22 10:52:00 EDT, [facility], 175, cm, 07/22/22 14:43:00 [...] 90 tablet, 1 Refills, 11/24/22 14:41:00 EST, [facility], 175, cm, 09/29/22 12:43:00 EST, Height, 84.1, kg, 06/07/21 4:26:00 EDT, Dry Weight Start Date: 11/24/22 Status: Ordered Eliquis 2.5 mg oral tablet 1 tablet, By Mouth, 2 times a day, # 180 tablet, 9 Refills, 02/18/23 17:26:00 EDT, [facility], 175, cm, 01/24/23 11:05:00 EDT, Height, 84.1, kg, 06/07/21 4:26:00 EDT, Dry Weight Start Date: 02/18/23 Status: Ordered furosemide 20 mg oral tablet 20 mg, 1, tablet, By Mouth, Daily, for 30 days, # 30 tablet, Refills 0, Tot. Refills 0, Acute 04/15/23 12:48:00 EDT, 03/16/23 12:48:00 EDT, Route to Pharmacy Electronically, [facility]/pharmacy #[id number], =, 175, cm, 03/16/23 12:17:00 EDT, Height, 84.1, kg, 08/0... Start Date: 03/16/23 Stop Date: 04/15/23 Status: Ordered furosemide 20 mg oral tablet 20 mg, 1, tablet, By Mouth, Daily, for 30 days, # 30 tablet, Refills 0, Tot. Refills 0, Acute 05/15/23 12:48:00 EDT, 04/15/23 12:48:00 EDT, Route to Pharmacy Electronically, [facility], please dispense early, 175, cm, 03/16/23 12:... Start Date: 04/15/23 Stop Date: 05/15/23 Status: Ordered LORazepam 1 mg oral tablet 1 tablet = 1 mg, By Mouth, Daily at bedtime, 11/09 - 03/08/2312/10 - 04/07/2301/07 delivery Sunday 05/06, start taking 05/07/23, # 30 tablet, 2 Refills, Maintenance, 02/18/23 10:24:00 EDT, [facility], 175, cm, 01/24/23 11:05:00 EDT,... Start Date: 02/18/23 Status: Ordered magnesium oxide 400 mg oral tablet 1 tablet, By Mouth, Daily, # 90 tablet, 11 Refills, Maintenance, 08/09/22 9:27:00 EDT, [facility], 175, cm, 07/22/22 14:43:00 EDT, Height, 84.1, kg, 06/07/21 4:26:00 EDT, Dry Weight Start Date: 08/09/22 Status: Ordered Melatonin Daily at bedtime, 0 Refills, Maintenance, 01/24/23 11:27:00 EDT Start Date: 01/24/23 Status: Ordered nystatin topical [id number] u/gm powder 1 application, Topically, 2 times a day, # 60 Gm, 1 Refills, Maintenance, 04/08/23 10:05:00 EDT, Powder, [facility], 1 application Topically 2 times a day, 175, cm, 03/16/23 12:17:00 EDT, Height, 84.1, kg, 06/07/21 4:26:00 EDT, Start Date: 04/08/23 Status: Ordered omeprazole 20 mg oral enteric coated capsule 1 capsule, By Mouth, Daily, # 90 capsule, 0 Refills, Maintenance, 03/08/23 9:16:00 EDT, [facility], 175, cm, 01/24/23 11:05:00 EDT, Height, 84.1, kg, 06/07/21 4:26:00 EDT, Dry Weight Start Date: 03/08/23 Status: Ordered tamsulosin 0.4 mg oral capsule 1, capsule, By Mouth, Daily at bedtime, # 90 capsule, Refills 1, Tot. Refills 1, 11/24/22 14:41:00 EST, Route to Pharmacy Electronically, [facility], 175, cm, 09/29/22 12:43:00 EST, Height, 84.1, kg, 06/07/21 4:26:00 EDT, Dry Weight Start Date: 11/24/22 Status: Ordered Vitamin B1 100 mg oral tablet 1, tablet, By Mouth, Daily, # 30 tablet, Refills 11, Maintenance, 08/09/22 9:27:00 EDT, Route to Pharmacy Electronically, [facility], 175, cm, 07/22/22 14:43:00 [...] Active Anxiety Confirmed Active Aortic valve prosthesis [id number] TAVR 2017 1, 2 Confirmed Active Arteriosclerotic [...] Confirmed 07/22/22 Active PAF (paroxysmal atrial fibrillation) [id number] 6 Confirmed Active Pituitary microadenoma 22, 23, 24 Confirmed Active Restless legs syndrome (RLS) Confirmed Active 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 11giardiam,o/p ,culture neg 12normal IGA/TTG 13workup [id number] 15chronic 16RFA 17djd xray 2-015 18xray 2004 [...] Associate Professional Member Role: PCP Address: Address: [address] [place] [address] [place] [address]- [place] Name: Adam Dennis MD Position: [facility] Cardiology MD Member Role: Lifetime Consulting Physician Address: Address: [address] [place] [address] [address] [place] [address]- [place] Name: Julia Yu RN Position: S RN Member Role: Primary Care Nurse Name: Jo Dillon RN Position: S RN Member Role: Primary Care Nurse Name: Anh Pires RN Position: S RN Member Role: Primary Care Nurse Name: Lonnie Puente Position: S RN Member Role: Primary Care Nurse Name: Jaqueline Johnson RN Position: [facility] RN Member Role: Primary Care Nurse Name: Vale CHUN, Viki Eduardo Position: [facility] RN Member Role: Primary Care Nurse Care Team Related Persons Name: SARWAT HENRIQUEZ Address: [address] [place] [address] Name: JOSEFINA CONTRERAS Address: [address] [place] [address]
--- OUTSIDE RECORDS SUMMARY | 2023-10-05 09:59 | XMS_ITS | Continuity of Care Document ---
Author Name Unknown Organization [facility] Tom lt Address [address] [place] [address]- Care Team Providers Care Sheet Combining Operator Name Role Phone Ju VAMP MAKER, Giovana Chiu Primary Care Physician [phone] Encounter [facility] Date(s): 03/21/23 - 04/20/23 [facility] Adult [address] [place] [address]- Allergies, Adverse Reactions, Alerts Substance Reaction Severity [...] vaccine, inactivated 11/27/10 Give n SARS-CoV-2 mRNA ([id number]) vax 6 04/29/22 Given SARS-CoV-2 (COVID-19) mRNA [...] Pneumococcal Vaccine (oldterm) 11/07/98 Given 1Result Comment: [id number] 2Result Comment: [facility]# ON [address] [phone] 3Location History: [place] 4Result Comment: [06/30/2017] HIGH DOSE RECIEVED AT [facility] 5Result Comment: [08/12/2015] [place] [facility] 6Result Comment: [facility]-[id number] 7Result Comment: Pfizer right deltoid lot [id number] exp 06-06-2021 [facility] 8Admin Note: GIVEN IN [...] 04/07/23 14:29:00 EDT, Route to Pharmacy Electronically, [facility], 175, cm, 03/16/23 12:17:00 EDT, Height, 84.1, kg, 06/07/21 4:26:00 EDT, Dry Weight Start Date: 04/07/23 Status: Ordered amLODIPine 5 mg oral tablet 1 tablet, By Mouth, Daily, # 90 tablet, 1 Refills, Maintenance, 08/07/22 10:52:00 EDT, [facility], 175, cm, 07/22/22 14:43:00 EDT, Height, [...] 90 tablet, 1 Refills, 11/24/22 14:41:00 EST, [facility], 175, cm, 09/29/22 12:43:00 EST, Height, 84.1, kg, 06/07/21 4:26:00 EDT, Dry Weight Start Date: 11/24/22 Status: Ordered Eliquis 2.5 mg oral tablet 1 tablet, By Mouth, 2 times a day, # 180 tablet, 9 Refills, 02/18/23 17:26:00 EDT, [facility], 175, cm, 01/24/23 11:05:00 EDT, Height, 84.1, kg, 06/07/21 4:26:00 EDT, Dry Weight Start Date: 02/18/23 Status: Ordered furosemide 20 mg oral tablet 20 mg, 1, tablet, By Mouth, Daily, for 30 days, # 30 tablet, Refills 0, Tot. Refills 0, Acute 05/15/23 12:48:00 EDT, 04/15/23 12:48:00 EDT, Route to Pharmacy Electronically, [facility], please dispense early, 175, cm, 03/16/23 [...] tablet, 11 Refills, Maintenance, 08/09/22 9:27:00 EDT, [facility], 175, cm, 07/22/22 14:43:00 EDT, Height, 84.1, kg, 06/07/21 4:26:00 EDT, Dry Weight Start Date: 08/09/22 Status: Ordered Melatonin Daily at bedtime, 0 Refills, Maintenance, 01/24/23 11:27:00 EDT Start Date: 01/24/23 Status: Ordered nystatin topical 488591 u/gm powder 1 application, Topically, 2 times a day, # 60 Gm, 1 Refills, Maintenance, 04/08/23 10:05:00 EDT, Powder, [facility], 1 application Topically 2 times a day, 175, cm, 03/16/23 12:17:00 EDT, Height, 84.1, kg, 06/07/21 4:26:00 EDT, . Start Date: 04/08/23 Status: Ordered omeprazole 20 mg oral enteric coated capsule 1 capsule, By Mouth, Daily, # 90 capsule, 0 Refills, Maintenance, 03/08/23 9:16:00 EDT, [facility], 175, cm, 01/24/23 11:05:00 EDT, Height, 84.1, kg, 06/07/21 4:26:00 EDT, Dry Weight Start Date: 03/08/23 Status: Ordered tamsulosin 0.4 mg oral capsule 1, capsule, By Mouth, Daily at bedtime, # 90 capsule, Refills 1, Tot. Refills 1, 11/24/22 14:41:00 EST, Route to Pharmacy Electronically, [facility], 175, cm, 09/29/22 12:43:00 EST, Height, 84.1, kg, 06/07/21 4:26:00 EDT, Dry Weight Start Date: 11/24/22 Status: Ordered Vitamin B1 100 mg oral tablet 1, tablet, By Mouth, Daily, # 30 tablet, Refills 11, Maintenance, 08/09/22 9:27:00 EDT, Route to Pharmacy Electronically, [facility], 175, cm, 07/22/22 14:43:00 EDT, Height, [...] Active Anxiety Confirmed Active Aortic valve prosthesis [id number] TAVR 2017 1, 2 Confirmed Active Arteriosclerotic [...] Confirmed 07/22/22 Active PAF (paroxysmal atrial fibrillation) [id number] 6 Confirmed Active 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 11giardiam,o/p ,culture neg 12normal IGA/TTG 13workup [id number] 15chronic 16RFA 17djd xray 2-015 18xray 2004 [...] Team Personnel Name: Giovana Dodd NP Position: [facility] Associate Professional Member Role: PCP Address: Address: [address] [place] [id number]- Name: Adam Dennis MD Position: [facility] Cardiology MD Member Role: Lifetime Consulting Physician Address: Address: [address] [place] [address] [address] [place] [id number]- [place] Name: Julia Yu RN Position: [facility] RN Member Role: Primary Care Nurse Name: [...] Persons Name: SARWAT HENRIQUEZ Address: home [address] [place] [address] Name: JOSEFINA CONTRERAS Address: home [address] [facility] [place] [address]
--- OUTSIDE RECORDS SUMMARY | 2023-10-05 10:00 | XMS_ITS | Continuity of Care Document ---
Author Name Unknown Organization [facility] Tom lt Address [address] [place] [address]- Care Team Providers Care Open Claims Representative Name Role Phone Michael Zafar MD Primary Care Physician [phone] Encounter [facility] Date(s): 06/11/20 - 06/18/20 [facility] Adult [address] [place] [address]- [facility] Encounter Diagnosis Chronic gout(Discharge Diagnosis) - 06/11/20 Attending Physician: Michael Zafar MD Allergies, Adverse [...] [06/30/2017] HIGH DOSE RECIEVED AT [facility] 4Rrenée Comment: [08/12/2015] [place] [facility] 5Admin Note: given in clinic 6Admin [...] 2 times a day, # 6 LOT [id number] EXP 2-21, # 180 tablet, 0 Refills, Maintenance, 06/13/20 11:45:00 EDT, Dry Weight Start Date: 06/13/20 Status: Ordered apixaban 2.5 mg oral tablet 1 tablet = 2.5 mg, By Mouth, 2 times a day, # 180 tablet, 3 Refills, Maintenance, 03/05/20 13:50:00EDT, [facility]/pharmacy #[id number], 176.5, cm, 12/25/19 15:48:00 EST, Height, [...] Gm, 0 Refills, Maintenance, 10/10/19 11:35:05 EST, [place], 1 sprays Nares, Both 2 times a [...] tablet, 3 Refills, Maintenance, 06/16/20 11:54:00 EDT, [facility]/pharmacy #[id number], 176.5, cm, 06/13/20 12:04:00 EDT, Height, 83.4, kg, 11/02/18 13:42:00 EST, Dry Weight Start Date: 06/16/20 Status: Ordered metoprolol 25 mg oral tablet, extended release 25 mg, 1, tablet, By Mouth, Daily, # 90 tablet, Refills 3, Tot. Refills 3, Maintenance, 06/16/20 9:41:00 EDT, Route to Pharmacy Electronically, [facility]/pharmacy #[id number], succinate, 176.5, cm, 06/13/20 12:04:00 EDT, Height, 83.4, kg, 11/02/18 13:42:00 EST, D... Start Date: 06/16/20 Stop Date: 06/11/21 Status: Ordered omeprazole 20 mg oral delayed release tablet 1 tablet = 20 mg, By Mouth, Daily, # 90 tablet, 3 Refills, Maintenance, 12/17/19 11:48:00 EST, EC Tablet, [facility]/pharmacy #[id number], 176.5, cm, 12/17/19 11:35:00 EST, Height, 83.4, kg, 11/02/18 13:42:00 EST, Dry Weight Start Date: 12/17/19 Status: Ordered tamsulosin 0.4 mg oral capsule 0.4 mg, By Mouth, Daily at bedtime, # 90 capsule, Refills 3, Tot. 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) 2, 3 Active Arteriosclerotic heart [...] x 1;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) 16 Active Hyperlipidemia NOS(Confirmed) Active Inguinal hernia;left(Confirmed) 12/17/08 [...] 26 Active PAF (paroxysmal atrial fibri llation) [id number] 6(Confirmed) Active Pituitary microadenoma(Confi rmed) 27, 28, 29 Active Restless legs syndrome (RLS)(Confirmed) Active Thrombocytopenia(Confirmed) 30, 31 06/22/09 Active Tricuspid insufficiency(Confirmed) Active Trochanteric bursitis of rig ht hip(Confirmed) Active Type 2 diabetes with nephropathy(Confirmed) Active Type 2 diabetes mellitus wit h peripheral angiopathy(Confirmed) Active 1educated about use epi pen /when call 2[facility] VALVE [facility] 09361 41 graft 5CABG 2002 6Dr nini addressing 7nephrolithiasis 8to workup 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 12giardiam,o/p ,culture neg 13normal IGA/TTG 14workup 15urology addressing [id number] 17ortho 18chronic 19RFA 20djd xray 2-015 21xray [...] inical Service Informant Chronic gout Discharge Diagnosis 06/11/20 Social History Social History Type Response Smoking Status Former smoker, quit more than 30 days ago entered on: 03/01/19 Sex
--- OUTSIDE RECORDS SUMMARY | 2023-10-05 10:00 | XMS_ITS | Continuity of Care Document ---
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 [place] 12/01/21 - 12/31/21 [facility] Adult [address] [place] [address]- Allergies, Adverse Reactions, Alerts Substance Reaction Severity [...] Vaccine (oldterm) 11/07/98 Given 1Result Comment: [facility]# [place] [address] [phone] 2Location History: [place] 3Result Comment: [06/30/2017] HIGH DOSE RECIEVED AT [facility] 4Rrenée Comment: [08/12/2015] Received at [facility] [place] [place] 5Result Comment: Pfizer right deltoid lot [id number] exp 06-06-2021 [facility] 6Admin Note: GIVEN IN CLINIC [facility] 7Admin [...] 09/01/21 11:50:00 EDT, Route to Pharmacy Electronically, [facility], 175, cm, 08/12/21 15:35:00 [...] 90 tablet, 1 Refills, 09/01/21 11:50:00 EDT, [facility], 175, cm, 08/12/21 15:35:00 EDT, Height, 84.1, kg, 06/07/21 4:26:00 EDT, Dry Weight Start Date: 09/01/21 Status: Ordered Eliquis 2.5 mg oral tablet 1 tablet, By Mouth, 2 times a day, # 180 tablet, 3 Refills, Maintenance, 03/17/21 11:43:00 EDT, [id number], 175, cm, 02/06/21 10:40:00 EDT, Height, 79, [...] Route to Pharmacy Electronically, [facility]/... Start Date: 12/17/19 Status: Ordered [...] 30 tablet, 0 Refills, Maintenance, 12/30/21 16:06:00EST, [facility], 175, cm, 10/12/21 14:45:00 [...] 90 capsule, 0 Refills, 09/01/21 11:50:00 EDT, [facility], 175, cm, 08/12/21 15:35:00 EDT, Height, 84.1, kg, 06/07/21 4:26:00 EDT, Dry Weight Start Date: 09/01/21 Status: Ordered predniSONE 50 mg oral tablet 1 tablet = 50 mg, By Mouth, Daily, first dose tonight then take in morning with food or milk, # 4 tablet, 0 Refills, Maintenance, 12/31/21 16:26:00 EST, Tablet, [facility]/pharmacy #[id number], Partial fill upon patient request if the prescription is for a schedu... Start Date: 12/31/21 Status: Ordered tamsulosin 0.4 mg oral capsule 1, capsule, By Mouth, Daily at bedtime, # 90 capsule, Refills 1, Tot. Refills 0, Maintenance, 05/08/21 14:24:00 EDT, Route to Pharmacy Electronically, [id number], 175, cm, 04/29/21 10:36:00 EDT,Height, 79, kg, [...] Active Anxiety(Confirmed) Active Aortic valve prosthesis pres [id number] TAVR 2017(Confirmed) 2, 3 Active Arteriosclerotic heart [...] 25 Active PAF (paroxysmal atrial fibri llation) [id number] 6(Confirmed) Active 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, 27, 28 Active Restless legs syndrome (RLS)(Confirmed) Active Thrombocytopenia(Confirmed) 29, 30 06/22/09 Active Tricuspid insufficiency(Confirmed) Active Trochanteric bursitis of rig ht hip(Confirmed) Active Type 2 diabetes with nephropathy(Confirmed) Active Type 2 diabetes mellitus wit h peripheral angiopathy(Confirmed) Active 1educated about use epi pen /when call 2[facility] PERICARD[facility] VALVE 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 12giardiam,o/p ,culture neg 13normal IGA/TTG 14workup 15urology addressing [id number] 17ortho 18chronic 19RFA 20djd xray 2-015 21xray [...]
--- OUTSIDE RECORDS SUMMARY | 2023-10-05 10:00 | XMS_ITS | Continuity of Care Document ---
Author Name Unknown Organization [facility] Address [address] [place] [address]- Care Team Providers Care Airflight Attendants Supervisor Name Role Phone Ju Giovana BROWN Primary Care Physician [phone] Encounter [facility] Date(s): 12/05/22 - 01/04/23 [facility] [address] [place] [address]- Attending Physician: Ju Chavez Admitting Physician: Ju [...] vaccine, inactivated 11/27/10 Give n SARS-CoV-2 mRNA ([id number]) vax 5 6/23/22 Given SARS-CoV-2 (COVID-19) mRNA BNT-162b2 vac 6 [...] Vaccine (oldterm) 11/07/98 Given 1Result Comment: [facility]# ON [address] [phone] 2Location History: [place] 3Result Comment: [06/30/2017] HIGH DOSE RECIEVED AT [facility] 4Resconstance Comment: [08/12/2015] Received at [facility] 5Result Comment: [facility]-[id number] 6Result Comment: Pfizer right deltoid lot [id number] exp 06-06-2021 [facility] 7Admin Note: GIVEN IN CLINIC [facility] 8Admin [...] 09/05/22 12:57:00 EDT, Route to Pharmacy Electronically, [facility], 175, cm, 07/22/22 14:43:00 EDT, Height, 84.1, kg, 06/07/21 4:26:00 EDT, Dry Weight Start Date: 09/05/22 Status: Ordered amLODIPine 5 mg oral tablet 1 tablet, By Mouth, Daily, # 90 tablet, 1 Refills, Maintenance, 08/07/22 10:52:00 EDT, [facility], 175, cm, 07/22/22 14:43:00 EDT, [...] 90 tablet, 1 Refills, 11/24/22 14:41:00 EST, [facility], 175, cm, 09/29/22 12:43:00 EST, Height, 84.1, kg, 06/07/21 4:26:00 EDT, Dry Weight Start Date: 11/24/22 Status: Ordered Eliquis 2.5 mg oral tablet 1 tablet, By Mouth, 2 times a day, # 180 tablet, 9 Refills, [facility], 175, cm, 02/09/22 10:10:00 EDT, Height, 84.1, kg, 06/07/21 4:26:00 EDT, Dry Weight Start Date: 02/10/22 Status: Ordered LORazepam 1 mg oral tablet 1 tablet = 1 mg, By Mouth, Daily at bedtime, 11/09 - 01/07/2312/10 delivery Tuesday02/04/23, start taking02/06/2301/07 - 03/08/23, # 30 tablet, 2 Refills, Maintenance, 11/24/22 14:36:00 EST, [facility], 175, cm, 09/29/22 12:43:00 EST... Start Date: 11/24/22 Status: Ordered magnesium oxide 400 mg oral tablet 1 tablet, By Mouth, Daily, # 90 tablet, 11 Refills, Maintenance, 08/09/22 9:27:00 EDT, [facility], 175, cm, 07/22/22 14:43:00 EDT, Height, 84.1, kg, 06/07/21 4:26:00 EDT, Dry Weight Start Date: 08/09/22 Status: Ordered MethylPREDNISolone Dose Pack 4 mg oral tablet 0 Refills, Maintenance, 12/17/22 13:11:00 EST, Partial fill upon patient request if the prescription is for a schedule II opioid drug. Start Date: 12/17/22 Status: Ordered nystatin topical 014295 u/gm powder 1 application, Topically, 2 times a day, # 60 Gm, 5 Refills, Maintenance, 01/14/22 10:20:00 EST, Powder, [facility], Partial fill upon patient request if the prescription is for a schedule II opioid drug., 1 application Topically... Start Date: 01/14/22 Status: Ordered omeprazole 20 mg oral enteric coated capsule 1 capsule, By Mouth, Daily, # 90 capsule, 0 Refills, Maintenance, 11/24/22 14:41:00 EST, [facility], 175, cm, 09/29/22 12:43:00 EST, [...] 11/24/22 14:41:00 EST, Route to Pharmacy Electronically, [facility], 175, cm, 09/29/22 12:43:00 EST, Height, 84.1, kg, 06/07/21 4:26:00 EDT, Dry Weight Start Date: 11/24/22 Status: Ordered Vitamin B1 100 mg oral tablet 1, tablet, By Mouth, Daily, # 30 tablet, Refills 11, Maintenance, 08/09/22 9:27:00 EDT, Route to Pharmacy Electronically, [facility], 175, cm, 07/22/22 14:43:00 EDT, [...] Active Anxiety Confirmed Active Aortic valve prosthesis [id number] TAVR 2017 2, 3 Confirmed Active Arteriosclerotic [...] 2014 12, 13, 14 Confirmed Active 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 12giardiam,o/p ,culture neg 13normal IGA/TTG 14workup 15urology addressing [id number] 17ortho 18chronic 19RFA 20djd xray 2-015 21xray [...] Care Nurse Name: Giovana Dodd NP Position: [facility] Associate Professional Member Role: PCP Address: Address: [address] [place] [address]- [place] Name: Adam Dennis MD Position: [facility] Cardiology MD Member Role: Lifetime Consulting Physician Address: Address: [address] [place] [address] [address] [place] [address]- [place] Name: Julia Yu RN Position: S [...] Care Nurse Name: Viki Collazo RN Position: [facility] RN Member Role: Primary Care Nurse Care Team Related Persons Name: FLORENCE SARWAT Address: [address] [place] [address] Name: JOSEFINA CONTRERAS Address: [address] [place] [address]
--- OUTSIDE RECORDS SUMMARY | 2023-10-05 10:00 | XMS_ITS | Continuity of Care Document ---
Author Name Unknown Organization [facility] Address [address] [place] [address]- Care Team Providers Care Jewelry Salesperson Name Role Phone Charisma LENZ, Michael Boston Primary Care Physician Encounter [facility] Date(s): 11/14/19 - 03/13/20 [facility] [address] [place] [address]- [facility] Attending Physician: Konstantin BROWN, Sussy Mercado Admitting Physician: Konstantin BROWN, Sussy Mercado Referring Physician: Sussy Pryor NP Allergies, Adverse Reactions, Alerts Substance Reaction Severity Status lisinopril 1, 2 Active gabapentin unknown Active carvedilol 3 Active Percocet vomiting Active Effexor dizziness Active Remeron 4 dizziness Active Bee Stings Active Welchol muscle and joint aches Activ e Percocet 5/325 5 Active FLUoxetine dizziness Active citalopram dizzy Active 1cough 2possible 3blurred vision 4nightmares 5Pt [...] [06/30/2017] HIGH DOSE RECIEVED AT [facility] 4Rrenée Comment: [08/12/2015] [place] [facility] 5Admin Note: given in clinic 6Admin Note: [...] tablet, 3 Refills, Maintenance, 03/05/20 13:50:00EDT, [facility]/pharmacy #[id number], 176.5, cm, 12/25/19 15:48:00 [...] Gm, 0 Refills, Maintenance, 10/10/19 11:35:05 EST, [place], 1 sprays Nares, Both 2 times a [...] Refills, Maintenance, 12/17/19 11:48:00 EST, Tablet, [facility]/pharmacy #[id number], Rx resent from 11/03/16., 176.5, cm, 12/17/19 11:35:00 EST, Height, 83.4, kg, 11/02/18 13:42:00 EST, Dry Weight Start Date: 12/17/19 Status: Ordered LORazepam 2 mg oral tablet 1 tablet = 2 mg, By Mouth, 2 times a day, # 60 tablet, 0 Refills, Maintenance, 03/05/20 13:50:00 EDT, [facility]/pharmacy #[id number], 176.5, cm, 12/25/19 15:48:00 EST, Height, 83.4, kg, 11/02/18 13:42:00 EST, Dry Weight Start Date: 03/05/20 Status: Ordered metoprolol 25 mg oral tablet 25 mg, 1, tablet, By Mouth, Daily, tartrate, # 90 tablet, Refills 3, Tot. Refills 3, Maintenance, 02/06/20 14:47:00 EDT, [id number], tartrate, 176.5, cm, 12/25/19 15:48:00 EST, Height, 83.4, kg, 11/02/18 13:42... Start Date: 02/06/20 Status: Ordered metoprolol 25 mg oral tablet 25 mg, 1, tablet, By Mouth, Daily, for 90 days, # 90 tablet, Refills 3, Tot. Refills 3, Hard Stop 10/30/20 12:58:00 EST, 11/05/19 12:58:00 EST, [facility]ically[id number], 176.5, cm, 10/23/19 15:57:00 EST, Height, 83.4, kg, 1... Start Date: 11/05/19 Stop Date: 10/30/20 Status: Ordered omeprazole 20 mg oral delayed release tablet 1 tablet = 20 mg, By Mouth, Daily, # 90 tablet, 3 Refills, Maintenance, 12/17/19 11:48:00 EST, EC Tablet, [facility]/pharmacy #[id number], 176.5, cm, 12/17/19 11:35:00 EST, Height, 83.4, kg, 11/02/18 13:42:00 EST, Dry Weight Start Date: 12/17/19 Status: Ordered tamsulosin 0.4 mg oral capsule 0.4 mg, By Mouth, Daily at bedtime, # 90 capsule, Refills 3, Tot. Refills 3, Maintenance, 12/17/19 11:48:00 EST, [id number], 176.5, cm, 12/17/19 11:35:00 [...] Active Anxiety(Confirmed) Active Aortic valve prosthesis pres [id number] TAVR 2017(Confirmed) 2, 3 Active Arteriosclerotic heart [...] 23 Active PAF (paroxysmal atrial fibri llation) [id number] 6(Confirmed) Active Pituitary microadenoma(Confi rmed) 24, 25, 26 Active Restless legs syndrome (RLS)(Confirmed) Active Thrombocytopenia(Confirmed) 27, 28 06/22/09 Active Tricuspid insufficiency(Confirmed) Active Trochanteric bursitis of rig ht hip(Confirmed) Active Type 2 diabetes with nephropathy(Confirmed) Active Type 2 diabetes mellitus wit h peripheral angiopathy(Confirmed) Active 1educated about use epi pen /when call 2[employer] PERICARDIAL VALVE [facility] [address] 41 graft 5CABG 2002 6Dr nini addressing 7nephrolithiasis 8to workup 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 12urology addressing [id number] 14ortho 15chronic 16RFA 17djd xray 2-015 18xray [...]
--- OUTSIDE RECORDS SUMMARY | 2023-10-05 10:00 | XMS_ITS | Continuity of Care Document ---
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 Name Role Phone Giovana Dodd NP Primary Care Physician [facility] [place]): 01/04/23 - 04/20/23 [facility] [address] [place] [address]- Discharge Disposition: A-D/C Home Attending Physician: Fidel LENZ(Hem/Onc), Carlos Boston Admitting Physician: Fidel LENZ(Hem/Onc), Carlos Boston Referring Physician: Giovana Dodd NP Allergies, Adverse [...] Give n influenza virus vaccine, inactivated 5 10/4/15 Gi mireya influenza virus vaccine, inactivated 08/07/14 Give n influenza virus vaccine, inactivated 07/26/13 Give n influenza virus vaccine, inactivated 11/27/10 Give n SARS-CoV-2 mRNA (etllhxf-fjjh-lxohm) vax 6 04/29/22 Given SARS-CoV-2 (COVID-19) mRNA [...] Pneumococcal Vaccine (oldterm) 11/07/98 Given 1Result Comment: [id number] 2Result Comment: [facility]# [address] [phone] 3Location History: [place] 4Result Comment: [06/30/2017] HIGH DOSE RECIEVED AT [address] 5Result Comment: [08/12/2015] Received at [facility] 6Result Comment: [facility]-[id number] 7Result Comment: Pfizer right deltoid lot [id number] exp 06-06-2021 [facility] 8Admin Note: GIVEN IN CLINIC SHAM 9Admin [...] 04/07/23 14:29:00 EDT, Route to Pharmacy Electronically, [facility], 175, cm, 03/16/23 12:17:00 EDT, Height, 84.1, kg, 06/07/21 4:26:00 EDT, Dry Weight Start Date: 04/07/23 Status: Ordered amLODIPine 5 mg oral tablet 1 tablet, By Mouth, Daily, # 90 tablet, 1 Refills, Maintenance, 08/07/22 10:52:00 EDT, [facility], 175, cm, 07/22/22 14:43:00 [...] 90 tablet, 1 Refills, 11/24/22 14:41:00 EST, [facility], 175, cm, 09/29/22 12:43:00 EST, Height, 84.1, kg, 06/07/21 4:26:00 EDT, Dry Weight Start Date: 11/24/22 Status: Ordered Eliquis 2.5 mg oral tablet 1 tablet, By Mouth, 2 times a day, # 180 tablet, 9 Refills, 02/18/23 17:26:00 EDT, [facility], 175, cm, 01/24/23 11:05:00 EDT, Height, 84.1, kg, 06/07/21 4:26:00 EDT, Dry Weight Start Date: 02/18/23 Status: Ordered furosemide 20 mg oral tablet 20 mg, 1, tablet, By Mouth, Daily, for 30 days, # 30 tablet, Refills 0, Tot. Refills 0, Acute 05/15/23 12:48:00 EDT, 04/15/23 12:48:00 EDT, Route to Pharmacy Electronically, [facility], please dispense early, 175, [...] tablet, 11 Refills, Maintenance, 08/09/22 9:27:00 EDT, [facility], 175, cm, 07/22/22 14:43:00 EDT, Height, 84.1, kg, 06/07/21 4:26:00 EDT, Dry Weight Start Date: 08/09/22 Status: Ordered Melatonin Daily at bedtime, 0 Refills, Maintenance, 01/24/23 11:27:00 EDT Start Date: 01/24/23 Status: Ordered nystatin topical 756945 u/gm powder 1 application, Topically, 2 times a day, # 60 Gm, 1 Refills, Maintenance, 04/08/23 10:05:00 EDT, Powder, [facility], 1 application Topically 2 times a day, 175, cm, 03/16/23 12:17:00 EDT, Height, 84.1, kg, 06/07/21 4:26:00 EDT, Start Date: 04/08/23 Status: Ordered omeprazole 20 mg oral enteric coated capsule 1 capsule, By Mouth, Daily, # 90 capsule, 0 Refills, Maintenance, 03/08/23 9:16:00 EDT, [facility], 175, cm, 01/24/23 11:05:00 EDT, Height, 84.1, kg, 06/07/21 4:26:00 EDT, Dry Weight Start Date: 03/08/23 Status: Ordered tamsulosin 0.4 mg oral capsule 1, capsule, By Mouth, Daily at bedtime, # 90 capsule, Refills 1, Tot. Refills 1, 11/24/22 14:41:00 EST, Route to Pharmacy Electronically, [facility], 175, cm, 09/29/22 12:43:00 EST, Height, 84.1, kg, 06/07/21 4:26:00 EDT, Dry Weight Start Date: 11/24/22 Status: Ordered Vitamin B1 100 mg oral tablet 1, tablet, By Mouth, Daily, # 30 tablet, Refills 11, Maintenance, 08/09/22 9:27:00 EDT, Route to Pharmacy Electronically, [facility], 175, cm, 07/22/22 14:43:00 [...] Active Anxiety Confirmed Active Aortic valve prosthesis [id number] TAVR 2017 1, 2 Confirmed Active Arteriosclerotic [...] Confirmed 07/22/22 Active PAF (paroxysmal atrial fibrillation) [id number] 6 Confirmed Active 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 11giardiam,o/p ,culture neg 12normal IGA/TTG 13workup [id number] 15chronic 16RFA 17djd xray 2-015 18xray 2004 [...] Team Personnel Name: Giovana Dodd NP Position: [facility] PCO Associate Professional Member Role: PCP Address: Address: [address] [place] [address]- [place] Name: Adam Dennis MD Position: [facility] Cardiology MD Member Role: Lifetime Consulting Physician Address: Address: [address] [place] [address] [address] [place] [address]- [place] Name: Julia Yu RN Position: [facility] RN Member Role: Primary Care Nurse Name: Jo Dillon RN Position: [facility] RN Member Role: Primary Care Nurse Name: Anh Pires RN Position: [facility] RN Member Role: Primary Care Nurse Name: Lonnie Puente Position: S RN Member Role: Primary Care Nurse Name: Jaqueline Johnson RN Position: S RN Member Role: Primary Care Nurse Name: Viki Collazo RN Position: S RN Member Role: Primary Care Nurse Care Team Related Persons Name: FLORENCE SARWAT Address: home [address] [place] [address] Name: JOSEFINA CONTRERAS Address: home [address] [place] [address]
--- OUTSIDE RECORDS SUMMARY | 2023-10-05 10:00 | XMS_ITS | Continuity of Care Document ---
Author Name Unknown Organization [facility] [place] [facility] Address [address] [place] [address]- Care Team Providers Care Materials And Corrosion Engineer Name Role Phone Charisma LENZ, Michael Boston Primary Care Physician [place] [facility] [place](s): 05/14/21 - 06/13/21 [facility] [place] [address] [place] [address]- Allergies, Adverse Reactions, Alerts Substance Reaction Severity [...] Given 1Result Comment: Pfizer right deltoid lot [id number] exp 06-06-2021 [facility] 2Location History: [place] 3Resconstance Comment: [06/30/2017] HIGH DOSE RECIEVED AT [facility] 4Rrenée Comment: [08/12/2015] Received at [facility] [place] 5Admin Note: GIVEN IN CLINIC SHAM 6Admin [...] 03/25/21 10:33:00 EDT, [id number] 175, cm, 03/20/21 12:09:00 EDT, Height, 79, kg, 11/26/20 11:00:00 EST, Dry Weight Start Date: 03/25/21 Status: Ordered amLODIPine 5 mg oral tablet 5 mg, 1, tablet, By Mouth, Daily, # 90 tablet, Refills 1, Tot. Refills 1, Maintenance, 06/08/21 11:27:00 EDT, [id number] 175, cm, 06/07/21 8:16:00 EDT, Height, 84.1, kg, 06/07/21 4:26:00 EDT, Dry Weight Start Date: 06/08/21 Status: Ordered aspirin 81 mg oral tablet 1 tablet = 81 mg, By Mouth, Daily, # 90 tablet, 3 Refills, 1 tablet By Mouth Daily,x90 days Start Date: 10/26/13 Stop Date: 10/21/14 Status: Ordered Eliquis 2.5 mg oral tablet 1 tablet, By Mouth, 2 times a day, # 180 tablet, 3 Refills, Maintenance, 03/17/21 11:43:00 EDT, [id number], 175, cm, 02/06/21 10:40:00 EDT, Height, 79, [...] 1 Refills, Maintenance, 02/07/21 22:44:00 EDT, Tablet, [id number], Rx resent from 11/03/16., 175, cm, 02/06/21 10:40:00 EDT, Height,79, kg, 11/26/20 11:00:00 EST, Dry Weight Start Date: 02/07/21 Status: Ordered LORazepam 1 mg oral tablet 1 tablet = 1 mg, By Mouth, Daily at bedtime, # 30 tablet, 0 Refills, Maintenance, 06/08/21 11:59:00EDT, [id number], 175, cm, 06/07/21 8:16:00 EDT, Height, 84.1, kg, 06/07/21 4:26:00 EDT, DryWeight Start Date: 06/08/21 Status: Ordered magnesium oxide 400 mg oral tablet 1 tablet = 400 mg, By Mouth, Daily, # 90 tablet, 3 Refills, Maintenance, 02/12/21 17:31:00 EDT, Tablet, [facility] #[id number], Partial fill upon patient request if [...] capsule, 0 Refills, Maintenance, 05/11/21 7:24:00 EDT, [id number], Rx resent from 05/08/21., 175, cm, 04/29/21 10:36:00 EDT, Height, 79, kg, 11/26/20 11:00:00 EST, Dry Weight Start Date: 05/11/21 Status: Ordered tamsulosin 0.4 mg oral capsule 1, capsule, By Mouth, Daily at bedtime, # 90 capsule, Refills 1, Tot. Refills 0, Maintenance, 05/08/21 14:24:00 EDT, Route to Pharmacy Electronically, [id number], 175, cm, 04/29/21 10:36:00 EDT,Height, 79, kg, 11/26/20 11:00:00 EST, Dry Weight Start Date: 05/08/21 Status: Ordered thiamine 100 mg oral tablet 100 mg, 1, tablet, By Mouth, Daily, # 30 tablet, Refills 11, Tot. 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(Confirmed) 2, 3 Active Arteriosclerotic heart [...] 25 Active PAF (paroxysmal atrial fibri llation) [id number] 6(Confirmed) Active 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, 27, 28 Active Restless legs syndrome (RLS)(Confirmed) Active Thrombocytopenia(Confirmed) 29, 30 06/22/09 Active Tricuspid insufficiency(Confirmed) Active Trochanteric bursitis of rig ht hip(Confirmed) Active Type 2 diabetes with nephropathy(Confirmed) Active Type 2 diabetes mellitus wit h peripheral angiopathy(Confirmed) Active 1educated about use epi pen /when call 2CARPENTIER PERICARDIAL VALVE [facility] [address] 41 graft 5CABG 2002 6Dr nini addressing 7nephrolithiasis 8to workup 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 12giardiam,o/p ,culture neg 13normal IGA/TTG 14workup 15urology addressing [id number] 17ortho 18chronic 19RFA 20djd xray 2-015 21xray [...]
--- OUTSIDE RECORDS SUMMARY | 2023-10-05 10:00 | XMS_ITS | Continuity of Care Document ---
Author Name Unknown Organization [facility] Tom [facility] Address [address] [place] [address]- Care Team Providers Care Director Voice Name Role Phone Giovana Dodd NP Primary Care Physician [phone] Encounter [facility] Date(s): 12/02/22 - 12/09/22 [facility] Adult [address] [place] [address]- Encounter Diagnosis Benign Essential Hypertension(Discharge Diagnosis) - 12/02/22 Arteriosclerotic heart disease (ASHD) cabg 2002;x1(Discharge Diagnosis) - 12/02/22 Hyperlipidemia NOS(Discharge Diagnosis) - 12/02/22 Type 2 diabetes mellitus with peripheral angiopathy(Discharge Diagnosis) - 12/02/22 Type 2 diabetes with nephropathy(Discharge Diagnosis) - 12/02/22 Chronic anticoagulation(Discharge Diagnosis) - 12/02/22 PAF (paroxysmal atrial fibrillation) [id number] 6(Discharge Diagnosis) - 12/02/22 GERD EGD 2007y(Discharge Diagnosis) - 12/05/22 Spondylosis of lumbar spine(Discharge Diagnosis) - 12/05/22 Attending Physician: Not on Staff, Attending MD [...] vaccine, inactivated 11/27/10 Give n SARS-CoV-2 mRNA ([id number]) vax 5 04/29/22 Given SARS-CoV-2 (COVID-19) mRNA [...] 1Result Comment: [facility]# [address] [phone] 2Location History: [place] 3Result Comment: [06/30/2017] HIGH DOSE RECIEVED AT [facility] 4Result Comment: [08/12/2015] Received at [facility] 5Result Comment: [facility]-[id number] 6Result Comment: Pfizer right deltoid lot [id number] exp 06-06-[address] [facility] [place] 7Admin Note: [...] 09/05/22 12:57:00 EDT, [place] Pharmacy Electronically, [facility] [...] Dry Weight Start Date: 02/10/22 Status: Ordered gabapentin 100 mg oral capsule 100 mg, 1, capsule, By Mouth, Daily at bedtime, for 30 days, # 30 capsule, Refills 0, Tot. Refills 0, Acute 01/01/23 11:45:00 EST, 12/02/22 11:45:00 EST, Route to Pharmacy Electronically, [facility], Partial fill upon patient requ... Start Date: 12/02/22 Stop Date: 01/01/23 Status: Ordered LORazepam 1 mg oral tablet 1 tablet = 1 mg, By Mouth, Daily at bedtime, 11/09 - 01/07/2312/10 delivery Tuesday02/04/23, start taking02/06/2301/07 - 03/08/23, # 30 tablet, 2 Refills, Maintenance, 11/24/22 14:36:00 EST, [facility], 175, cm, 09/29/22 12:43:00 EST... Start Date: 11/24/22 Status: Ordered magnesium oxide 400 mg oral tablet 1 tablet, By Mouth, Daily, # 90 tablet, 11 Refills, Maintenance, 08/09/22 9:27:00 EDT, [facility], 175, cm, 07/22/22 14:43:00 EDT, Height, 84.1, kg, 06/07/21 4:26:00 EDT, Dry Weight Start Date: 08/09/22 Status: Ordered nystatin topical 131074 u/gm powder 1 application, Topically, 2 times [...] capsule, 0 Refills, Maintenance, 11/24/22 14:41:00 EST, [facility], [...] Active Anxiety Confirmed Active Aortic valve prosthesis [id number] TAVR 2017 2, 3 Confirmed Active Arteriosclerotic [...] 12, 13, 14 Confirmed Active 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 Active Elevated PSA 15 Confirmed Active Impaired mobility and ADLs Confirmed Active GERD EGD Confirmed Active Chronic gout Confirmed 08/09/19 Active H/O endarterectomy RT 2010,left 2020 DEC Confirmed Active Hearing loss refer [...] Confirmed 07/22/22 Active PAF (paroxysmal atrial fibrillation) [id number] 6 Confirmed Active Pituitary microadenoma 26, 27, [...] 2CARPENTIER PERICARDIAL VALVE [facility] [address] 41 graft 5CABG 2002 6Dr nini addressing 7nephrolithiasis 8to workup 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 12giardiam,o/p ,culture neg 13normal IGA/TTG 14workup 15urology addressing [id number] 17ortho 18chronic 19RFA 20djd xray 2-015 21xray 2004 LS arthritis etc 22BCG 23carcinoma in situ 24saw ortho 25s aw ortho;injected SEVERE pain 26endocrinology addressing 27MRI pti ;refer endo 28mri c spine 2014 29per hematology ? 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;to follow 30workup in progress Diagnosis Diagnosis Type Effective Dates Health Status Clinical Service Informant Benign Essential Hypertension Discharge Diagnosis 12/02/22 Arteriosclerotic heart disease (ASHD) cabg 2002;x1 Discharge Diagnosis 12/02/22 Chronic anticoagulation Discharge Diagnosis 12/02/22 Hyperlipidemia NOS Discharge Diagnosis 12/02/22 PAF (paroxysmal atrial fibrillation) [id number] 6 Discharge Diagnosis 12/02/22 Type 2 diabetes mellitus with peripheral angiopathy Discharge Diagnosis 12/02/22 Type 2 diabetes with nephropathy Discharge Diagnosis 12/02/22 GERD EGD 2007y Discharge Diagnosis 12/05/22 Spondylosis of lumbar spine Discharge Diagnosis 12/05/22 Vital Signs Most recent to oldest [Reference Range]: 1 Height 175 cm (12/02/22 11:10 AM) Weight 81.8 kg (12/02/22 11:10 AM) Oxygen Saturation [94-100 %] 96 % (12/02/22 11:10 AM) Pulse Rate [55-90 bpm] 84 bpm (12/02/22 11:10 AM) Body Mass Index [18.5-24.99 kg/m2] 26.71 kg/m2 *H* (12/02/22 11:10 AM) Blood Pressure [90-138/55-84 mm Hg] 122/ 76mm Hg (12/02/22 11:10 AM) Respiratory Rate [16-30 br/min] 16 br/mi n (12/02/22 11:10 AM) Temperature [96.8-100.4 DegF] 97.3 DegF (12/02/22 11:10 AM) Mode of Delivery (Oxygen) Room air (12/02/22 11:10 AM) Temperature Route Oral (12/02/22 11:10 AM) Weight Obtained Via Standing scale (12/02/22 11:10 AM) Social History Social History Type Response Smoking Status Former smoker, quit more than 30 days ago entered on: 03/01/19 Sex Note * Chelsea Baker: PERFORM, SIGN, VERIFY Event Display: Patient Education/Instruction Authored Date: [facility] *BMP Daphne Newman Clinical Summary Name SHADI SWAN Age 87 Years 1935 PCP Ju KEVIN, Giovana Chiu PCP [facility]# [id number] Visit Date 12/02/2022 11:08:00 Additional Instructions: Scheduled Appointments?? Future Appointments ?*Device??Clinic ?Phone:??--?Fax:??-- ?Appt. Date:??12/06/2022?7:40 AM ?Scheduled Provider:??Device Interrogation ?*Pain??Management ?[address]??[place],??[place],??[address] ?Phone:??[phone]?Fax:??-- ?Appt. Date:??12/17/2022?12:50 PM ?Scheduled Provider:??Anselmo LENZ , Shashank Follow-Up Instructions ?? With: Address: When: Ju BRWON, Giovana Chiu In 4 months Diagnosis Chronic obstructive pulmonary disease with (acute) exacerbation; Atherosclerotic heart disease of [place] coronary artery without angina pectoris; Paroxysmal atrial fibrillation; Type 2 diabetes mellitus with diabetic nephropathy; Type 2 diabetes mellitus with diabetic peripheral angiopathy without gangrene; Heart failure, unspecified; Essential (primary) hypertension; [facility] (current) use of anticoagulants; Hyperlipidemia, unspecified Medications: Please continue your medications until treatment is completed or stopped by your provider. Discuss any questions related to medications with your provider. New Medications [facility], [address] [place] [phone], [phone] Gabapentin (gabapentin 100 mg oral capsule) 1 capsule Oral Daily at Bedtime for 30 Days. Refills: 0. Next Dose: Medications to Continue Taking That Have Changed These medications were not printed or sent to your pharmacy - Cholecalciferol (Vitamin D3 2000 intl units oral capsule) 1 capsule Oral Daily for 30 Days. Refills: 11. Next Dose: - Magnesium Oxide (magnesium oxide 400 mg oral tablet) 1 tab(s) Oral Daily. Refills: 11. Next Dose: - Thiamine (Vitamin B1 100 mg oral tablet) 1 tab(s) Oral Daily. Refills: 11. Next Dose: Medications to Continue with No Changes These [...] Daily at Bedtime. Refills: 1. Next Dose: Lorazepam (LORazepam 1 mg oral tablet) 1 tab(s) Oral Daily at Bedtime. 11/09 - 01/07/2312/10 delivery Tuesday02/04/23, start taking 02/06/2301/07 - 03/08/23. Refills: 2. Next Dose: Metoprolol (metoprolol succinate 25 mg oral capsule, extended release) 1 capsule Oral Daily. Next Dose: Nystatin Topical (nystatin topical 371561 u/gm powder) 1 venancio Topically twice a day. Refills: 5. Next Dose: Omeprazole (omeprazole 20 mg oral enteric coated capsule) 1 capsule Oral Daily. Refills: 0. Next Dose: Tamsulosin (tamsulosin 0.4 mg oral capsule) 1 capsule Oral Daily at Bedtime. Refills: 1. Next Dose: Trazodone (traZODone 50 mg oral tablet) 0.5 tab(s) Oral Daily at Bedtime. Next Dose: Allergy Info:?? traZODone; FLUoxetine; Percocet 5/325; Lactose; Welchol; Bee Stings; Remeron; Effexor; Percocet; citalopram; carvedilol; lisinopril Medications Given This Visit Future Orders ?No future orders Vital Signs Height 175 cm Weight 81.8 kg BMI 26.71 kg/m2 Blood Pressure 122 mm Hg/76 mm Hg Temperature 97.3 DegF Pulse Rate 84 bpm Respiratory Rate 16 br/min 02 Sat Mode of Delivery 96 %/Room air You can now view a summary of your hospital visit from the comfort of your home through a free online portal called [employer]. [employer] is a website that allows you to securely view your medical information including discharge summary, medications and follow-up visits. ??You can alsosend a secure electronic message to your doctor???s office to request appointments, renew medications or just ask a question. You can enroll at [email or web address] or register during your next office [...] primary care provider, you may find a [facility] provider by calling [facility] [employer] [facility] at [phone]. For information about the plan of care [...] Team Personnel Name: Raina Westbrook RN Position: [facility] RN Member Role: Primary Care Nurse Name: Giovana Dodd NP Position: [facility] PCO Associate Professional Member Role: PCP Address: Address: [address] [place] [address]- Name: Adam Dennis MD Position: [facility] Cardiology MD Member Role: Lifetime Consulting Physician Address: Address: [address] [place] [address] Name: Jo Dillon RN Position: S RN [...] Persons Name: SARWAT HENRIQUEZ Address: [address] [place] [address] Name: JOSEFINA CONTRERAS Address: [address] [facility] [place] [address]
--- OUTSIDE RECORDS SUMMARY | 2023-10-05 10:00 | XMS_ITS | Continuity of Care Document ---
Author Name Unknown Organization [facility] Tom lt Address [address] [place] [address]- Care Team Providers Care Animation Artist Name Role Phone Charisma LENZ, Michael Boston Primary Care Physician Encounter [facility] [place] Date(s): 04/01/21 - 05/01/21 [facility] Adult [address] [place] [address]- Allergies, Adverse Reactions, Alerts Substance Reaction Severity Status lisinopril 1, 2 Active gabapentin unknown Active carvedilol 3 Active citalopram dizzy Active Percocet vomiting Active Effexor dizziness Active Remeron 4 dizziness Active Bee Stings Active Welchol muscle and joint aches Activ e Percocet 5/ 5 Active FLUoxetine dizziness Active 1cough 2possible [...] Given 1Result Comment: Pfizer right deltoid lot [id number] exp 06-06-2021 [facility] 2Location History: [place] 3Resconstance Comment: [06/30/2017] HIGH DOSE RECIEVED AT [facility] 4Resconstance Comment: [08/12/2015] Received at [facility] [place] 5Admin Note: GIVEN IN CLINIC SHAM [...] 03/25/21 10:33:00 EDT, [id number] 175, cm, 03/20/21 12:09:00 EDT, Height, 79, kg, 11/26/20 11:00:00 EST, Dry Weight Start Date: 03/25/21 Status: Ordered amLODIPine 5 mg oral tablet 5 mg, 1, tablet, By Mouth, Daily, # 90 tablet, Refills 1, Tot. Refills 1, Maintenance, 03/14/21 5:46:00 EDT, Route to Pharmacy Electronically, [facility]/pharmacy #[id number], 175, cm, 02/06/21 [...] 3 Refills, Maintenance, 03/17/21 11:43:00 EDT, [id number], 175, cm, 02/06/21 10:40:00 EDT, Height, 79, [...] 1 Refills, Maintenance, 02/07/21 22:44:00 EDT, Tablet, [facility]/pharmacy #[id number], Rx [...] Refills, Maintenance, 02/07/21 22:44:00 EDT, EC Tablet, [facility]/pharmacy #[id number], 175, cm, 02/06/21 10:40:00 EDT, Height, 79, kg, 11/26/20 11:00:00 EST, Dry Weight Start Date: 02/07/21 Status: Ordered tamsulosin 0.4 mg oral capsule 0.4 mg, By Mouth, Daily at bedtime, # 90 capsule, Refills 1, Tot. Refills 1, Maintenance, 02/07/21 22:44:00 EDT, Route to Pharmacy Electronically, [facility]/pharmacy #[id number], 175, cm, 02/06/21 10:40:00 EDT, Height, 79, kg, 11/26/20 11:00:00 EST, Dry Weight Start Date: 02/07/21 Status: Ordered thiamine 100 mg oral tablet 100 mg, 1, tablet, By Mouth, Daily, # 30 tablet, Refills 11, Tot. Refills 11, Maintenance, 09/08/2013:24:00 EST, Route to Pharmacy Electronically, [facility]/pharmacy #[id number], 175, cm, 09/08/20 [...] Active Anxiety(Confirmed) Active Aortic valve prosthesis pres [id number] TAVR 2017(Confirmed) 2, 3 Active Arteriosclerotic heart [...] 25 Active PAF (paroxysmal atrial fibri llation) [id number] 6(Confirmed) Active 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, 27, 28 Active Restless legs syndrome (RLS)(Confirmed) Active Thrombocytopenia(Confirmed) 29, 30 06/22/09 Active Tricuspid insufficiency(Confirmed) Active Trochanteric bursitis of rig ht hip(Confirmed) Active Type 2 diabetes with nephropathy(Confirmed) Active Type 2 diabetes mellitus wit h peripheral angiopathy(Confirmed) Active 1educated about use epi pen /when call 2[employer] VAL[facility] 23807 41 graft 5CABG 2002 6Dr nini addressing 7nephrolithiasis 8to workup 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 12giardiam,o/p ,culture neg 13normal IGA/TTG 14workup 15urology addressing [id number] 17ortho 18chronic 19RFA 20djd xray 2-015 21xray [...]
--- OUTSIDE RECORDS SUMMARY | 2023-10-05 10:01 | XMS_ITS | Continuity of Care Document ---
Author Name Unknown Organization [facility] Address [address] [place] [id number]- Care Team Providers Care Production Or Plant Engineer Name Role Phone Charisma LENZ, Michael Boston Primary Care Physician Encounter [facility] [place] Date(s): 03/21/20 - 03/28/20 [facility] [address] [place] [address]- [facility] Attending Physician: Richard Abel MD Allergies, Adverse Reactions, [...] Lucero Comment: [06/30/2017] HIGH DOSE RECIEVED AT [facility] 4Rrenée Comment: [08/12/2015] [place] [facility] 5Admin Note: given in clinic 6Admin Note: [...] tablet, 3 Refills, Maintenance, 03/05/20 13:50:00EDT, [facility]/pharmacy #[id number], 176.5, cm, 12/25/19 15:48:00 EST, [...] 0 Refills, Maintenance, 03/21/20 10:41:00EDT, ER Tablet, [facility]/pharmacy #[id number], 1 tablet By Mouth Every 24 hours, 176.5, cm, 03/21/20 8:21:00 EDT, Height, 83.4, kg, 11/02/18 13:42:00 EST, Dry Weight Start Date: 03/21/20 Status: Ordered Flonase 50 mcg/inh nasal spray 1 sprays, Nares, Both, 2 times a day, # 16 Gm, 0 Refills, Maintenance, 10/10/19 11:35:05 EST, [place], 1 sprays Nares, Both 2 times a [...] tablet, 0 Refills, Maintenance, 03/05/20 13:50:00 EDT, [facility]/pharmacy #[id number], 176.5, cm, 12/25/19 15:48:00 EST, Height, 83.4, kg, 11/02/18 13:42:00 EST, Dry Weight Start Date: 03/05/20 Status: Ordered metoprolol 25 mg oral tablet, extended release 25 mg, 1, tablet, By Mouth, Daily, # 90 tablet, Refills 3, Tot. Refills 3, Maintenance, 03/21/20 12:01:00 EDT, Route to Pharmacy Electronically, [facility]/pharmacy #[id number], 176.5, cm, 03/21/20 8:21:00 EDT, Height, 83.4, kg, 11/02/18 13:42:00 EST, Dry Weight Start Date: 03/21/20 Status: Ordered omeprazole 20 mg oral delayed release tablet 1 tablet = 20 mg, By Mouth, Daily, # 90 tablet, 3 Refills, Maintenance, 12/17/19 11:48:00 EST, EC Tablet, [facility]/pharmacy #[id number], 176.5, cm, 12/17/19 11:35:00 EST, Height, 83.4, kg, 11/02/18 13:42:00 EST, Dry Weight Start Date: 12/17/19 Status: Ordered tamsulosin 0.4 mg oral capsule 0.4 mg, By Mouth, Daily at bedtime, # 90 capsule, Refills 3, Tot. Refills 3, Maintenance, 12/17/19 11:48:00 EST, Route to Pharmacy Electronically, [facility]/pharmacy #[id number], 176.5, cm, 12/17/19 11:35:00 EST, [...] Active Anxiety(Confirmed) Active Aortic valve prosthesis pres [id number] TAVR 2018(Confirmed) 2, 3 Active Arteriosclerotic heart [...] 23 Active PAF (paroxysmal atrial fibri llation) [id number] 6(Confirmed) Active Pituitary microadenoma(Confi rmed) 24, 25, 26 Active Restless legs syndrome (RLS)(Confirmed) Active Thrombocytopenia(Confirmed) 27, 28 06/22/09 Active Tricuspid insufficiency(Confirmed) Active Trochanteric bursitis of rig ht hip(Confirmed) Active Type 2 diabetes with nephropathy(Confirmed) Active Type 2 diabetes mellitus wit h peripheral angiopathy(Confirmed) Active 1educated about use epi pen /when call 2[facility] [address] 41 graft 5CABG 2002 6Dr nini addressing 7nephrolithiasis 8to workup 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 12urology addressing [id number] 14ortho 15chronic 16RFA 17djd xray 2-015 18xray [...]
--- OUTSIDE RECORDS SUMMARY | 2023-10-05 10:01 | XMS_ITS | Continuity of Care Document ---
Author Name Unknown Organization [facility] Tom lt Address [address] [place] [address]- Care Team Providers Care Ic Designer Custom Name Role Phone Charisma LENZ, Michael Boston Primary Care Physician En[place] [facility] [place] Date(s): 03/17/21 - 04/16/21 [facility] Adult [address] [place] [address]- Allergies, Adverse Reactions, Alerts Substance Reaction Severity [...] Given 1Result Comment: Pfizer right deltoid lot [id number] exp 06-06-2021 [facility] 2Location History: [place] 3Resconstance Comment: [06/30/2017] HIGH DOSE RECIEVED AT [facility] 4Resconstance Comment: [08/12/2015] Received at [facility] [place] 5Admin Note: GIVEN IN CLINIC SHAM 6Admin [...] 03/25/21 10:33:00 EDT, [id number], cm, 03/20/21 12:09:00 EDT, Height, 79, kg, 11/26/20 11:00:00 EST, Dry Weight Start Date: 03/25/21 Status: Ordered amLODIPine 5 mg oral tablet 5 mg, 1, tablet, By Mouth, Daily, # 90 tablet, Refills 1, Tot. Refills 1, Maintenance, 03/14/21 5:46:00 EDT, Route to Pharmacy Electronically, [facility]/pharmacy #[id number], 175, cm, 02/06/21 10:40:00 EDT, [...] 3 Refills, Maintenance, 03/17/21 11:43:00 EDT, [id number], 175, cm, 02/06/21 10:40:00 EDT, Height, 79, [...] 1 Refills, Maintenance, 02/07/21 22:44:00 EDT, Tablet, [facility]/pharmacy #[id number], Rx resent from 11/03/16., 175, [...] 3 Refills, Maintenance, 02/12/21 17:31:00 EDT, Tablet, [facility]/pharmacy #[id number], Partial fill upon patient request [...] Refills, Maintenance, 02/07/21 22:44:00 EDT, EC Tablet, [facility]/pharmacy #0315, 175, cm, 02/06/21 10:40:00 EDT, Height, 79, kg, 11/26/20 11:00:00 EST, Dry Weight Start Date: 02/07/21 Status: Ordered predniSONE 20 mg oral tablet 1 tablet = 20 mg, By Mouth, 2 times a day, with food or milk, # 6 tablet, 0 Refills, Maintenance, 02/06/21 10:49:00 EDT, Tablet, [facility]/pharmacy #[id number], Partial fill upon patient request if the prescription is for a schedule II opioid drug., 175, cm, ... Start Date: 02/06/21 Status: Ordered tamsulosin 0.4 mg oral capsule 0.4 mg, By Mouth, Daily at bedtime, # 90 capsule, Refills 1, Tot. Refills 1, Maintenance, 02/07/21 22:44:00 EDT, Route to Pharmacy Electronically, [facility]/pharmacy #[id number], 175, cm, 02/06/21 10:40:00 EDT, Height, 79, kg, 11/26/20 11:00:00 EST, Dry Weight Start Date: 02/07/21 Status: Ordered thiamine 100 mg oral tablet 100 mg, 1, tablet, By Mouth, Daily, # 30 tablet, Refills 11, Tot. Refills 11, Maintenance, 09/08/2013:24:00 EST, Route to Pharmacy Electronically, [facility]/pharmacy #[id number], 175, cm, 09/08/20 12:47:00 EST,Height, [...] Active Anxiety(Confirmed) Active Aortic valve prosthesis pres [id number] TAVR 2017(Confirmed) 2, 3 Active Arteriosclerotic heart [...] 25 Active PAF (paroxysmal atrial fibri llation) [id number] 6(Confirmed) Active 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, 27, 28 Active Restless legs syndrome (RLS)(Confirmed) Active Thrombocytopenia(Confirmed) 29, 30 06/22/09 Active Tricuspid insufficiency(Confirmed) Active Trochanteric bursitis of rig ht hip(Confirmed) Active Type 2 diabetes with nephropathy(Confirmed) Active Type 2 diabetes mellitus wit h peripheral angiopathy(Confirmed) Active 1educated about use epi pen /when call 2[employer] 18331 41 graft 5CABG 2002 6Dr nini addressing 7nephrolithiasis 8to workup 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 12giardiam,o/p ,culture neg 13normal IGA/TTG 14workup 15urology addressing [id number] 17ortho 18chronic 19RFA 20djd xray 2-015 21xray [...]
--- OUTSIDE RECORDS SUMMARY | 2023-10-05 10:01 | XMS_ITS | Continuity of Care Document ---
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 Name Role Phone Leo Breen DO Primary Care Physician Encounter [facility] Date(s): 06/15/23 - 07/15/23 [facility] Adult [address] [place] [address]- Allergies, Adverse Reactions, Alerts Substance Reaction Severity [...] vaccine, inactivated 11/27/10 Give n SARS-CoV-2 mRNA ([id number]) vax 6 04/29/22 Given SARS-CoV-2 (COVID-19) mRNA [...] Pneumococcal Vaccine (oldterm) 11/07/98 Given 1Result Comment: [id number] 2Result Comment: [facility]# [address] [id number] [facility] 4Result Comment: [06/30/2017] HIGH DOSE RECIEVED AT [facility] 5Resconstance Comment: [08/12/2015] Received at [facility] [place] 6Result Comment: [facility]-[id number] 7Result Comment: Pfizer right deltoid lot [id number] exp 06-06-2021 [facility] 8Admin Note: GIVEN IN CLINIC SHAM 9Admin [...] tablet, 1 Refills, Maintenance, 06/16/23 8:19:00 EDT, [facility], 175, cm, 06/13/2313:20:00 EDT, Height Start Date: 06/16/23 Status: Ordered magnesium oxide 400 mg oral tablet 1 tablet, By Mouth, Daily, # 90 tablet, 11 Refills, Maintenance, 08/09/22 9:27:00 EDT, [facility], 175, cm, 07/22/22 14:43:00 EDT, Height, 84.1, kg, 06/07/21 4:26:00 EDT, Dry Weight Start Date: 08/09/22 Status: Ordered nystatin topical [id number] u/gm powder 1 application, Topically, 2 times [...] Active Anxiety Confirmed Active 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 11giardiam,o/p ,culture neg 12normal IGA/TTG 13workup [id number] 15chronic 16RFA 17djd xray 2-015 18xray 2004 [...] Team Personnel Name: Giovana Dodd NP Position: [facility] PCO Associate Professional Member Role: Lifetime Consulting Provider Address: Address: [address] [place] [address]- [place] Name: Adam Dennis MD Position: [facility] Cardiology MD Member Role: Lifetime Consulting Physician Address: Address: [address] [place] [place] [address]- [place] Name: Julia Yu RN Position: S RN Member Role: Primary Care Nurse Name: Jo Dillon RN Position: [facility] RN Member Role: Primary Care Nurse Name: Anh Pires RN Position: S RN Member Role: Primary Care Nurse Name: Lonnie Puente RN Position: [facility] RN Member Role: Primary Care Nurse Name: Jaqueline Johnson RN Position: [facility] RN Member Role: Primary Care Nurse Name: Deb Brito Position: [facility] [place] Transit Planning Manager Member Role: Elementary School Social Worker Name: Leo Breen DO Position: [facility] Physician - Primary Care Member Role: PCP Address: Address: [address] [place] [address]- Name: Vale CHUN, Viki Eduardo Position: [facility] RN Member Role: Primary Care Nurse Care Team Related Persons Name: SARWAT HENRIQUEZ Address: [address] [place] [address] Name: JOSEFINA CONTRERAS Address: home [address] [place] [address]
--- OUTSIDE RECORDS SUMMARY | 2023-10-05 10:01 | XMS_ITS | Continuity of Care Document ---
Author Name Unknown Organization [facility] Tom lt Address [address] [place] [address]- Care Team Providers Care Expansion Joint Finisher Name Role Phone Michael Zafar MD Primary Care Physician Encounter [facility] [place] Date(s): 10/20/20 - 10/27/20 [facility] Adult [address] [place] [address]- Encounter Diagnosis Memory loss noemal b12,thiamine tsh(Discharge Diagnosis) - 10/20/20 Alcohol use(Discharge Diagnosis) - 10/20/20 Anxiety(Discharge Diagnosis) - 10/20/20 Chronic anticoagulation(Discharge Diagnosis) - 10/20/20 Chronic gout(Discharge Diagnosis) - 10/20/20 Attending Physician: Michael Zafar MD Allergies, Adverse [...] 11/27/10 Give n Influenza Virus Vaccine (oldterm) 10/8/19 Recorde d Influenza Virus Vaccine (oldterm) 4 [...] Bradford Comment: [06/30/2017] HIGH DOSE RECIEVED AT [facility] DR Lucero Comment: [08/12/2015] Received at [facility] [place] 4Admin Note: GIVEN [...] 10/20/20 11:45:00 EST, Route to Pharmacy Electronically, [facility]/pharmacy #[id number], 175, cm, 10/20/20 11:12:00 EST, [...] 3 Refills, Maintenance, 03/05/20 13:50:00EDT, [facility]/pharmacy #[id number], 176.5, cm, 12/25/19 15:48:00 EST, Height, 83.4, kg, 11/02/18 13:42:00 EST,Dry Weight Start Date: 03/05/20 Status: Ordered apixaban 2.5 mg oral tablet 1 tablet = 2.5 mg, By Mouth, 2 times a day, # 5 LOT [id number] EXP 07-28, # 180 tablet, 0 Refills, [...] 2 Refills, Maintenance, 09/08/20 12:59:00EST, [facility]/pharmacy #[id number], 175, cm, 09/08/20 12:47:00 EST, Height, [...] 9:41:00 EDT, Route to Pharmacy Electronically, [facility]/pharmacy #[id number], succinate, 176.5, cm, 06/13/20 12:04:00 EDT, Height, 83.4, kg, 11/02/18 13:42:00 EST, D... Start Date: 06/16/20 Stop Date: 06/11/21 Status: Ordered omeprazole 20 mg oral delayed release tablet 1 tablet = 20 mg, By Mouth, Daily, # 90 tablet, 3 Refills, Maintenance, 12/17/19 11:48:00 EST, EC Tablet, [facility]/pharmacy #0315, 176.5, cm, 12/17/19 11:35:00 EST, Height, 83.4, kg, 11/02/18 13:42:00 EST, Dry Weight Start Date: 12/17/19 Status: Ordered tamsulosin 0.4 mg oral capsule 0.4 mg, By Mouth, Daily at bedtime, # 90 capsule, Refills 3, Tot. Refills 3, Maintenance, 12/17/19 11:48:00 EST, Route to Pharmacy Electronically, [facility]/pharmacy #[id number], 176.5, cm, 12/17/19 11:35:00 EST, Height, 83.4, kg, 11/02/18 13:42:00 EST, Dry Weight Start Date: 12/17/19 Status: Ordered thiamine 100 mg oral tablet 100 mg, 1, tablet, By Mouth, Daily, # 30 tablet, Refills 11, Tot. Refills 11, Maintenance, 09/08/2013:24:00 EST, Route to Pharmacy Electronically, [facility]/pharmacy #[id number], 175, cm, 09/08/20 12:47:00 [...] Active Anxiety(Confirmed) Active Aortic valve prosthesis pres [id number] TAVR 2017(Confirmed) 2, 3 Active Arteriosclerotic heart [...] 25 Active PAF (paroxysmal atrial fibri llation) [id number] 6(Confirmed) Active 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, 27, 28 Active Restless legs syndrome (RLS)(Confirmed) Active Thrombocytopenia(Confirmed) 29, 30 06/22/09 Active Tricuspid insufficiency(Confirmed) Active Trochanteric bursitis of rig ht hip(Confirmed) Active Type 2 diabetes with nephropathy(Confirmed) Active Type 2 diabetes mellitus wit h peripheral angiopathy(Confirmed) Active 1educated about use epi pen /when call 2[employer] PERICARDIAL VALVE [facility] [address] 41 graft 5CABG 2002 6Dr nini addressing 7nephrolithiasis 8to workup 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 12giardiam,o/p ,culture neg 13normal IGA/TTG 14workup 15urology addressing [id number] 17ortho 18chronic 19RFA 20djd xray 2-015 21xray 2004 LS arthritis etc 22BCG 23carcinoma in situ 24saw ortho 25s aw ortho;injected SEVERE pain 26endocrinology addressing 27MRI pti ;refer endo 28mri c spine 2014 29per hematology ? 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;to follow 30workup in progress Diagnosis Diagnosis Type Effective Dates Health Status Clinical Service Informant Memory loss noemal b12,thiamine tsh Discharge Diagnosis 10/20/20 Alcohol use Discharge Diagnosis 10/20/20 Anxiety Discharge Diagnosis 10/20/20 Chronic anticoagulation Discharge Diagnosis 10/20/20 Chronic gout Discharge Diagnosis 10/20/20 Vital Signs Most recent to oldest [Reference Range]: 1 Height 175 cm (10/20/20 11:12 AM) Weight 82.7 kg (10/20/20 11:12 AM) Oxygen Saturation [94-100 %] 95 % (10/20/20 11:12 AM) Pulse Rate [55-90 bpm] 48 bpm *L* (10/20/20 11:12 AM) Body Mass Index [18.5-24.99] 27 *H* (10/20/20 11:12 AM) Blood Pressure [90-138/55-84 mm Hg] 136/ 54mm Hg (10/20/20 11:12 AM) Respiratory Rate [16-30 br/min] 20 br/mi n (10/20/20 11:12 AM) Blood pressure sites Arm, left (10/20/20 11:12 AM) Social History Social History Type Response Smoking Status Former smoker, quit more than 30 days ago entered on: 03/01/19 Sex
--- OUTSIDE RECORDS SUMMARY | 2023-10-05 10:01 | XMS_ITS | Continuity of Care Document ---
Author Name Unknown Organization [facility] Address [address] [place] [id number]- Care Team Providers Care Rn Homecare Name Role Phone Ju Giovana BROWN Primary Care Physician [phone] Encounter [facility] Date(s): 12/12/22 - 12/12/[address] [address]- Encounter Diagnosis Arm swelling(Final) - 12/12/22 Confusion(Final) - 12/12/22 Discharge Disposition: A-D/C Home Attending Physician: Maikol Guzman DO Admitting Physician: Maikol Guzman DO Referring Physician: Not on Staff, Referring MD Allergies, Adverse Reactions, Alerts Substance Reaction Severity Status lisinopril 1, 2 Active Percocet vomiting Active Bee Stings Active carvedilol 3 Active citalopram dizzy Active Effexor dizziness Active Remeron 4 dizziness [...] vaccine, inactivated 11/27/10 Give n SARS-CoV-2 mRNA ([id number]-[id number]) vax 5 04/29/22 Given SARS-CoV-2 (COVID-19) mRNA [...] 11/07/98 Given 1Result Comment: [facility]# [address] [id number] 2Location History: [place] 3Result Comment: [06/30/2017] HIGH DOSE RECIEVED AT [facility] 4Resconstance Comment: [08/12/2015] Received at [facility] 5Result Comment: [facility]-[id number] 6Result Comment: Pfizer right deltoid lot [id number] exp 06-06-2021 [facility] 7Admin Note: GIVEN IN CLINIC SHAM [...] 09/05/22 12:57:00 EDT, Route to Pharmacy Electronically, [facility], 175, cm, 07/22/22 14:43:00 EDT, Height, 84.1, kg, 06/07/21 4:26:00 EDT, Dry Weight Start Date: 09/05/22 Status: Ordered amLODIPine 5 mg oral tablet 1 tablet, By Mouth, Daily, # 90 tablet, 1 Refills, Maintenance, 08/07/22 10:52:00 EDT, [facility], 175, cm, 07/22/22 [...] 90 tablet, 1 Refills, 11/24/22 14:41:00 EST, [facility], 175, cm, 09/29/22 12:43:00 EST, Height, 84.1, kg, 06/07/21 4:26:00 EDT, Dry Weight Start Date: 11/24/22 Status: Ordered Eliquis 2.5 mg oral tablet 1 tablet, By Mouth, 2 times a day, # 180 tablet, 9 Refills, [facility], 175, cm, 02/09/22 10:10:00 EDT, Height, 84.1, kg, 06/07/21 4:26:00 EDT, Dry Weight Start Date: 02/10/22 Status: Ordered gabapentin 100 mg oral capsule 100 mg, 1, capsule, By Mouth, Daily at bedtime, for 30 days, # 30 capsule, Refills 0, Tot. Refills 0, Acute 01/01/23 11:45:00 EST, 12/02/22 11:45:00 EST, Route to Pharmacy Electronically, [facility], Partial fill upon patient requ... Start Date: 12/02/22 Stop Date: 01/01/23 Status: Ordered LORazepam 1 mg oral tablet 1 tablet = 1 mg, By Mouth, Daily at bedtime, 1/3 - 01/07/2312/10 delivery Tuesday02/04/23, start taking02/06/2301/07 - 03/08/23, # 30 tablet, 2 Refills, Maintenance, 11/24/22 14:36:00 EST, [facility], 175, cm, 09/29/22 12:43:00 EST... Start Date: 11/24/22 Status: Ordered magnesium oxide 400 mg oral tablet 1 tablet, By Mouth, Daily, # 90 tablet, 11 Refills, Maintenance, 08/09/22 9:27:00 EDT, [facility], 175, cm, 07/22/22 14:43:00 EDT, Height, 84.1, kg, 06/07/21 4:26:00 EDT, Dry Weight Start Date: 08/09/22 Status: Ordered nystatin topical [id number] u/gm powder 1 application, Topically, 2 times a day, # 60 Gm, 5 Refills, Maintenance, 01/14/22 10:20:00 EST, Powder, [facility], Partial fill upon patient request if the prescription is for a schedule II opioid drug., 1 application Topically... Start Date: 01/14/22 Status: Ordered omeprazole 20 mg oral enteric coated capsule 1 capsule, By Mouth, Daily, # 90 capsule, 0 Refills, Maintenance, 11/24/22 14:41:00 EST, [facility], 175, cm, 09/29/22 12:43:00 EST, Height, 84.1, kg, 06/07/21 4:26:00 EDT, Dry Weight Start Date: 11/24/22 Status: Ordered tamsulosin 0.4 mg oral capsule 1, capsule, By Mouth, Daily at bedtime, # 90 capsule, Refills 1, Tot. Refills 1, 11/24/22 14:41:00 EST, Route to Pharmacy Electronically, [facility], 175, cm, 09/29/22 12:43:00 EST, Height, 84.1, kg, 06/07/21 4:26:00 EDT, Dry Weight Start Date: 11/24/22 Status: Ordered Tylenol 325 mg oral tablet 975 mg, Tablet, By Mouth, Once, PRN for Pain , Mild, STAT, 12/12/22 15:38:00 EST Start Date: 12/12/22 Stop Date: 12/12/22 Status: Completed Vitamin B1 100 mg oral tablet 1, tablet, By Mouth, Daily, # 30 tablet, Refills 11, Maintenance, 08/09/22 9:27:00 EDT, Route to Pharmacy Electronically, [facility], 175, cm, 07/22/22 [...] Active Anxiety Confirmed Active Aortic valve prosthesis 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 2, 3 Confirmed Active Arteriosclerotic [...] 2014 12, 13, 14 Confirmed Active 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 12giardiam,o/p ,culture neg 13normal IGA/TTG 14workup 15urology addressing [id number] 17ortho 18chronic 19RFA 20djd xray 2-015 21xray 2004 LS arthritis etc 22BCG 23carcinoma in situ 24saw ortho 25s aw ortho;injected SEVERE pain 26endocrinology addressing 27MRI pti ;refer endo 28mri c spine 2014 29per hematology ? 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 No prior studies are available. HISTORY: Swelling. FINDINGS: High-resolution real-time imaging of the deep venous structures from the jugular vein to the humeral fossa show normal-appearing vessels with good compressibility. Doppler waveform analysis shows normal phasicity of flow with respiration and augmentation of flow. The contralateral right internal jugular and subclavian veins are patent. IMPRESSION: Negative examination. No evidence of deep venous thrombosis. Examination 95[address]. Thank you for allowing me to participate in the care of this patient. WSN: [id number] Ordering Physician: Trice Fine Dictated By: Quintin Hogan MD Dictated Date/Time: 12/12/22 7:29 pm Reviewed By: Quintin Hogan MD Signed By: Quintin Hogan MD Signed Date/Time: 12/12/22 7:29 pm Transcribed By: [email or web address] Transcribed Date/Time: 12/12/22 7:29 pm * Exam Date Time Procedure Performing Provider Status 12/12/22 5:[address] Cervical Spine W/O Contrast Colon , Jillian; Auth (Verified) Notes: (CT Cervical Spine W/O Contrast) Reason For Exam: Trauma RESULT: CT Cervical Spine W/O Contrast CT of the head and cervical spine dated December 12, 2022. No prior studies are available. HISTORY: Pain secondary to trauma. FINDINGS: CT imaging was performed with multislice acquisition from the foramen magnum through the vertex. No intravenous contrast material was utilized. Axial and coronal reconstruction was performed. A weight based protocol using automatic tube modulation was used to optimize exposure parameters. Examination of the posterior fossa shows an enlarged midline fourth ventricle. No mass, hemorrhage,or abnormal extra axial fluid collection is identified. Sulcal prominence is noted. Supratentorially, the lateral and third ventricles are increased in size, contour and position. No mass, hemorrhage, or abnormal extra axial fluid collection is identified. There is low attenuation noted in the periventricular white matter. 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 Sulcal prominence is noted. The samuel-white matter differentiation is well preserved. There is no evidence of a hyperdense vessel or loss of the insular ribbon. Visualized osseous structures, paranasal sinuses and orbits are unremarkable. The mastoid air cells are clear. Examination of the cervical spine was performed with multislice acquisition from the skull base to the apices of the lungs with axial, coronal, and sagittal reconstruction. A weight based protocol using automatic tube modulation was used to optimize exposure parameters. There is reversal of the normal cervical lordosis. There are postoperative changes with interbody fusion at C5-6 and C6-7. No fracture or dislocation is identified. The facet joints align normally. No locked or perched facets are seen. The craniocervical articulation is anatomic. No prevertebral soft tissue swelling or epidural hematoma is identified. There is significant asymmetry of the parotid salivary glands. On the right, it is significantly smaller and may be secondary to prior surgery. The apices of the lungs are unremarkable. IMPRESSION: No evidence of acute intracranial abnormality. Degenerative changes and postoperative changes in the cervical spine without evidence of fracture or dislocation. Significantly smaller right parotid salivary gland. Thank you for allowing me to participate in the care of this patient. WSN: [id number] Ordering Physician: Trice Fine Dictated By: Quintin Hogan MD Dictated Date/Time: 12/12/22 6:33 pm Reviewed By: Quintin Hogan MD Signed By: Quintin Hogan MD Signed Date/Time: 12/12/22 6:33 pm Transcribed By: WOJCIECH Transcribed Date/Time: 12/12/22 6:21 pm * Exam Date Time Procedure Performing Provider Status 12/12/22 5:[address] Head/Brain W/O Contrast Kinsey Bowie; Auth (Verified) Notes: (CT Head/Brain W/O Contrast) Reason For Exam: Trauma RESULT: CT Head/Brain W/O Contrast CT of the head and cervical spine dated December 12, 2022. No prior studies are available. HISTORY: Pain secondary to trauma. FINDINGS: CT imaging was performed with multislice acquisition from the foramen magnum through the vertex. No intravenous contrast material was utilized. Axial and coronal reconstruction was performed. A weight based protocol using automatic tube modulation was used to optimize exposure parameters. Examination of the posterior fossa shows an enlarged midline fourth ventricle. No mass, hemorrhage,or abnormal extra axial fluid collection is identified. Sulcal prominence is noted. Supratentorially, the lateral and third ventricles are increased in size, contour and position. No mass, hemorrhage, or abnormal extra axial fluid collection is identified. There is low attenuation noted in the periventricular white matter. 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 Sulcal prominence is noted. The samuel-white matter differentiation is well preserved. There is no evidence of a hyperdense vessel or loss of the insular ribbon. Visualized osseous structures, paranasal sinuses and orbits are unremarkable. The mastoid air cells are clear. Examination of the cervical spine was performed with multislice acquisition from the skull base to the apices of the lungs with axial, coronal, and sagittal reconstruction. A weight based protocol using automatic tube modulation was used to optimize exposure parameters. There is reversal of the normal cervical lordosis. There are postoperative changes with interbody fusion at C5-6 and C6-7. No fracture or dislocation is identified. The facet joints align normally. No locked or perched facets are seen. The craniocervical articulation is anatomic. No prevertebral soft tissue swelling or epidural hematoma is identified. There is significant asymmetry of the parotid salivary glands. On the right, it is significantly smaller and may be secondary to prior surgery. The apices of the lungs are unremarkable. IMPRESSION: No evidence of acute intracranial abnormality. Degenerative changes and postoperative changes in the cervical spine without evidence of fracture or dislocation. Significantly smaller right parotid salivary gland. Thank you for allowing me to participate in the care of this patient. WSN: [id number] Ordering Physician: Trice Fine Dictated By: Quintin Hogan MD Dictated Date/Time: 12/12/22 6:33 pm Reviewed By: Quintin Hogan MD Signed By: Quintin Hogan MD Signed Date/Time: 12/12/22 6:33 pm Transcribed By: WOJCIECH Transcribed Date/Time: 12/12/22 6:21 pm Vital Signs Most recent to oldest [Reference Range]: 1 2 3 Oxygen Saturation [94-100 %] 98 % (12/12/22 8:49 PM) 97 % (12/12/22 2:44 PM) Pulse Rate [55-90 bpm] 65 bpm (12/12/22 8:49 PM) 63 bpm (12/12/22 2:44 PM) Blood Pressure [90-138/55-84 mm Hg] 138/82mm Hg (12/12/22 8:49 PM) 124/64mm Hg (12/12/22 2:44 PM) Respiratory Rate [16-30 br/min] 18 br/min (12/12/22 8:49 PM) 20 br/min (12/12/22 5:52 PM) 18 br/min (12/12/22 2:44 PM) Temperature [96.8-100.4 DegF] 98.2 DegF (12/12/22 8:49 PM) 97.7 DegF (12/12/22 2:44 PM) Mode of Delivery (Oxygen) Room air (12/12/22 8:49 PM) Room air (12/12/22 2:44 PM) Blood pressure sites Arm, right (12/12/22 8:49 PM) Arm, right (12/12/22 2:44 PM) Temperature Route Oral (12/12/22 8:49 PM) Oral (12/12/22 2:44 PM) Social History Social History Type Response Smoking Status Former smoker, quit more than 30 days ago entered on: 03/01/[address] Cervical spine WO contrast * [facility] , ELIANA S: TRANSCRIBE Edison LENZ, Quintin Izaguirre: VERIFY Event Display: Result: Authored Date: [id number] CT of the head and cervical spine dated December 12, 2022. No prior studies are available. HISTORY: Pain secondary to trauma. FINDINGS: CT imaging was performed with multislice acquisition from the foramen magnum through the vertex. No intravenous contrast material was utilized. Axial and coronal reconstruction was performed. A weight based protocol using automatic tube modulation was used to optimize exposure parameters. Examination of the posterior fossa shows an enlarged midline fourth ventricle. No mass, hemorrhage,or abnormal extra axial fluid collection is identified. Sulcal prominence is noted. Supratentorially, the lateral and third ventricles are increased in size, contour and position. No mass, hemorrhage, or abnormal extra axial fluid collection is identified. There is low attenuation noted in the periventricular white matter. 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 Sulcal prominence is noted. The samuel-white matter differentiation is well preserved. There is no evidence of a hyperdense vessel or loss of the insular ribbon. Visualized osseous structures, paranasal sinuses and orbits are unremarkable. The mastoid air cells are clear. Examination of the cervical spine was performed with multislice acquisition from the skull base to the apices of the lungs with axial, coronal, and sagittal reconstruction. A weight based protocol using automatic tube modulation was used to optimize exposure parameters. There is reversal of the normal cervical lordosis. There are postoperative changes with interbody fusion at C5-6 and C6-7. No fracture or dislocation is identified. The facet joints align normally. No locked or perched facets are seen. The craniocervical articulation is anatomic. No prevertebral soft tissue swelling or epidural hematoma is identified. There is significant asymmetry of the parotid salivary glands. On the right, it is significantly smaller and may be secondary to prior surgery. The apices of the lungs are unremarkable. IMPRESSION: No evidence of acute intracranial abnormality. Degenerative changes and postoperative changes in the cervical spine without evidence of fracture or dislocation. Significantly smaller right parotid salivary gland. Thank you for allowing me to participate in the care of this patient. WSN: [id number] Ordering Physician: Trice Fine Dictated By: Quintin Hogan MD Dictated Date/Time: 12/12/22 6:33 pm Reviewed By: Quintin Hogan MD Signed By: Quintin Hogan MD Signed Date/Time: 12/12/22 6:33 pm Transcribed By: WOJCIECH Transcribed Date/Time: 12/12/22 6:[address] Head WO contrast * [facility] , CIS S: TRANSCRIBE Quintin Hogan MD: VERIFY Event Display: Result: Authored Date: [id number] CT of the head and cervical spine dated December 12, 2022. No prior studies are available. HISTORY: Pain secondary to trauma. FINDINGS: CT imaging was performed with multislice acquisition from the foramen magnum through the vertex. No intravenous contrast material was utilized. Axial and coronal reconstruction was performed. A weight based protocol using automatic tube modulation was used to optimize exposure parameters. Examination of the posterior fossa shows an enlarged midline fourth ventricle. No mass, hemorrhage,or abnormal extra axial fluid collection is identified. Sulcal prominence is noted. Supratentorially, the lateral and third ventricles are increased in size, contour and position. No mass, hemorrhage, or abnormal extra axial fluid collection is identified. There is low attenuation noted in the periventricular white matter. 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 Sulcal prominence is noted. The samuel-white matter differentiation is well preserved. There is no evidence of a hyperdense vessel or loss of the insular ribbon. Visualized osseous structures, paranasal sinuses and orbits are unremarkable. The mastoid air cells are clear. Examination of the cervical spine was performed with multislice acquisition from the skull base to the apices of the lungs with axial, coronal, and sagittal reconstruction. A weight based protocol using automatic tube modulation was used to optimize exposure parameters. There is reversal of the normal cervical lordosis. There are postoperative changes with interbody fusion at C5-6 and C6-7. No fracture or dislocation is identified. The facet joints align normally. No locked or perched facets are seen. The craniocervical articulation is anatomic. No prevertebral soft tissue swelling or epidural hematoma is identified. There is significant asymmetry of the parotid salivary glands. On the right, it is significantly smaller and may be secondary to prior surgery. The apices of the lungs are unremarkable. IMPRESSION: No evidence of acute intracranial abnormality. Degenerative changes and postoperative changes in the cervical spine without evidence of fracture or dislocation. Significantly smaller right parotid salivary gland. Thank you for allowing me to participate in the care of this patient. WSN: [id number] Ordering Physician: Trice Fine Dictated By: Quintin Hogan MD Dictated Date/Time: 12/12/22 6:33 pm Reviewed By: Quintin Hogan MD Signed By: Quintin Hogan MD Signed Date/Time: 12/12/22 6:33 pm Transcribed By: CSDmitriy Transcribed Date/Time: 12/12/22 6:21 pm Note * [facility] , CIS S: TRANSCRIBE Quintin Hogan MD: VERIFY Event Display: Result: Authored Date: [id number] Left leg ultrasound dated December 12, 2022. No prior studies are available. HISTORY: Swelling. FINDINGS: High-resolution real-time imaging of the deep venous structures from the jugular vein to the humeral fossa show normal-appearing vessels with good compressibility. Doppler waveform analysis shows normal phasicity of flow with respiration and augmentation of flow. The contralateral right internal jugular and subclavian veins are patent. IMPRESSION: Negative examination. No evidence of deep venous thrombosis. Examination [id number]. Thank you for allowing me to participate in the care of this patient. WSN: [id number] Ordering Physician: Trice Fine Dictated By: Quintin Hogan MD Dictated Date/Time: 12/12/22 7:29 pm Reviewed By: Quintin Hogan MD Signed By: Quintin Hogan MD Signed Date/Time: 12/12/22 7:29 pm Transcribed By: WOJCIECH Transcribed Date/Time: 12/12/22 7:29 pm Patient Care team information Care Team Personnel Name: Raina Westbrook RN Position: [facility] RN Member Role: Primary Care Nurse Name: Giovana Dodd NP Position: [facility] PCO Associate Professional Member Role: PCP Address: Address: [address] [place] [address]- [place] Name: Adam Dennis MD Position: [facility] Cardiology MD Member Role: Lifetime Consulting Physician Address: Address: [address] [place] [address] [address] [place] [address]- [place] Name: Jo Dillon RN Position: [facility] RN Member Role: Primary Care Nurse Name: Anh Pires RN Position: [facility] RN Member Role: Primary Care Nurse Name: Lonnie Puente Position: [facility] RN Member Role: Primary Care Nurse Name: Julia Khan RN Position: [facility] RN Member Role: Primary Care Nurse Name: Jaqueline Johnson RN Position: [facility] RN Member Role: Primary Care Nurse Name: Kathy Garcia RN Position: [facility] RN Member Role: Primary Care Nurse Name: Viki Collazo RN Position: [facility] RN Member Role: Primary Care Nurse Name: Maikol Guzman DO Position: [facility] ED Medicine MD Member Role: Admitting Physician Address: Address: [address] [place] [address]- [place] Name: Chelsea Anguiano Position: [facility] ED TA [facility] Member Role: Highway Maintenance Supervisor Name: Figueroa Castellano RN Position: [facility] ED RN W/OE and Tasks Member Role: Patient Care Provider Name: Mariann Enriquez MD Position: [facility] Resident Member Role: ED Resident Address: Address: [address] [place] [address]- [place] Care Team Related Persons Name: SARWAT HENRIQUEZ Address: [address] [place] [address] Name: JOSEFINA CONTRERAS Address: home [address] [place] [address]
--- OUTSIDE RECORDS SUMMARY | 2023-10-05 10:01 | XMS_ITS | Continuity of Care Document ---
Author Name Unknown Organization [facility] Kirk Tom lt Address [address] [place] [address]- Care Team Providers Care Bolt Header Name Role Phone Michael Zafar MD Primary Care Physician [place] [facility] [place] 09/03/20 - 09/10/20 [facility] [place] Adult [address] [place] [address]- [facility] Encounter Diagnosis Dental disease(Discharge Diagnosis) - 09/03/20 Arteriosclerotic heart disease (ASHD) cabg 2002;x1(Discharge Diagnosis) - 09/03/20 CHF (congestive heart failure) systolic(Discharge Diagnosis) - 09/03/20 COPD (chronic obstructive pulmonary disease) with acute bronchitis(Discharge Diagnosis) - 09/03/20 BPH without urinary obstruction(Discharge Diagnosis) - 09/03/20 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(Discharge Diagnosis) - 09/03/20 Chronic anticoagulation(Discharge Diagnosis) - 09/03/20 Benign Essential Hypertension(Discharge Diagnosis) - 09/03/20 Chronic renal disease, stage 3, moderately decreased glomerular filtration rate (GFR) between 30-59mL/min/1.73 square meter(Discharge Diagnosis) - 09/03/20 Chronic gout(Discharge Diagnosis) - 09/03/20 Attending Physician: Michael Zafar MD Allergies, Adverse [...] Bradford Comment: [06/30/2017] HIGH DOSE RECIEVED AT [facility] DR Lucero Comment: [08/12/2015] Received at [facility] [place] 4Admin Note: GIVEN IN CLINIC SHAM 5Admin [...] 09/08/20 13:15:00 EST, Route to Pharmacy Electronically, [facility]/pharmacy #[id number], 175, cm, 09/08/20 12:47:00 EST, [...] 180 tablet, 3 Refills, Maintenance, 03/05/20 13:50:00EDT, [facility]/pharmacy #[id number], 176.5, cm, 12/25/19 15:48:00 EST, Height, 83.4, kg, 11/02/18 13:42:00 EST,Dry Weight Start Date: 03/05/20 Status: Ordered apixaban 2.5 mg oral tablet 1 tablet = 2.5 mg, By Mouth, 2 times a day, # 5 LOT [id number] EXP 07-28, # 180 tablet, 0 Refills, [...] Replace Required Details, Route to Pharmacy Electronically, [facility]/... Start Date: 12/17/19 Status: Ordered [...] 3 Refills, Maintenance, 12/17/19 11:48:00 EST, Tablet, [facility]/pharmacy #[id number], Rx resent from 11/03/16., 176.5, [...] 06/16/20 9:41:00 EDT, Route to Pharmacy Electronically, [facility]/pharmacy #[id number], succinate, 176.5, cm, 06/13/20 12:04:00 EDT, Height, 83.4, kg, 11/02/18 13:42:00 EST, D... Start Date: 06/16/20 Stop Date: 06/11/21 Status: Ordered omeprazole 20 mg oral delayed release tablet 1 tablet = 20 mg, By Mouth, Daily, # 90 tablet, 3 Refills, Maintenance, 12/17/19 11:48:00 EST, EC Tablet, [facility]/pharmacy #[id number], 176.5, cm, 12/17/19 11:35:00 EST, Height, 83.4, kg, 11/02/18 13:42:00 EST, Dry Weight Start Date: 12/17/19 Status: Ordered tamsulosin 0.4 mg oral capsule 0.4 mg, By Mouth, Daily at bedtime, # 90 capsule, Refills 3, Tot. Refills 3, Maintenance, 12/17/19 11:48:00 EST, [id number] 176.5, cm, 12/17/19 11:35:00 EST, Height, 83.4, kg, 11/02/18 13:42:00 EST, Dry Weight Start Date: 12/17/19 Status: Ordered thiamine 100 mg oral tablet 100 mg, 1, tablet, By Mouth, Daily, # 30 tablet, Refills 11, Tot. Refills 11, Maintenance, 09/08/2013:24:00 EST, [id number], 175, cm, 09/08/20 12:47:00 EST,Height, 80.6, [...] ant Bee sting allergy(Confirmed) 1 Active Memory loss(Confirmed) Active Anxiety(Confirmed) Active Aortic valve prosthesis pres [id number] TAVR 2017(Confirmed) 2, 3 Active Arteriosclerotic heart [...] 25 Active PAF (paroxysmal atrial fibri llation) [id number] 6(Confirmed) Active 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, 27, 28 Active Restless legs syndrome (RLS)(Confirmed) Active Thrombocytopenia(Confirmed) 29, 30 06/22/09 Active Tricuspid insufficiency(Confirmed) Active Trochanteric bursitis of rig ht hip(Confirmed) Active Type 2 diabetes with nephropathy(Confirmed) Active Type 2 diabetes mellitus wit h peripheral angiopathy(Confirmed) Active 1educated about use epi pen /when call 2[employer] [facility] 29238 41 graft 5CABG 2002 6Dr nini addressing 7nephrolithiasis 8to workup 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 12giardiam,o/p ,culture neg 13normal IGA/TTG 14workup 15urology addressing [id number] 17ortho 18chronic 19RFA 20djd xray 2-015 21xray 2005 LS arthritis etc 22BCG 23carcinoma in situ 24saw ortho 25s aw ortho;injected SEVERE pain 26endocrinology addressing 27MRI pti ;refer endo 28mri c spine 2014 29per hematology ? 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;to follow 30workup in progress Diagnosis Diagnosis Type Effective Dates Health Status Clinical Service Informant Dental disease Discharge Diagnosis 09/03/20 Arteriosclerotic heart disease (ASHD) cabg 2002;x1 Discharge Diagnosis 09/03/20 CHF (congestive heart failure) systolic Discharge Diagnosis 09/03/20 COPD (chronic obstructive pulmonary disease) with acute bronchitis Discharge Diagnosis 09/03/20 BPH without urinary obstruction Discharge Diagnosis 09/03/20 Aortic valve prosthesis [id number] TAVR 2018 Discharge Diagnosis 09/03/20 Chronic anticoagulation Discharge Diagnosis 09/03/20 Benign Essential Hypertension Discharge Diagnosis 09/03/20 Chronic renal disease, stage 3, moderately decreased glomerular filtration rate (GFR) between 30-59 mL/min/1.73 square meter Discharge Diagnosis 09/03/20 Chronic gout Discharge Diagnosis 09/03/20 Social History Social History Type Response Smoking Status Former smoker, quit more than 30 days ago entered on: 03/01/19 Sex
--- OUTSIDE RECORDS SUMMARY | 2023-10-05 10:01 | XMS_ITS | Continuity of Care Document ---
Author Name Unknown Organization [facility] Anders Bradley Tom lt Address [address] [place] [address]- Care Team Providers Care Register Repairer Name Role Phone Michael Zafar MD Primary Care Physician [place] [facility] [place]22[place]20 [facility] Adult [address] [place] [address]- [facility] Attending Physician: Michael Zafar MD Allergies, Adverse [...] Comment: [06/30/2017] HIGH DOSE RECIEVED AT [facility] 4Rrenée Comment: [08/12/2015] Re[place] at [facility] [place] 5Admin Note: given in clinic 6Admin Note: [...] 3 Refills, Maintenance, 03/05/20 13:50:00EDT, [facility]/pharmacy #[id number], 176.5, cm, 12/25/19 15:48:00 [...] 0 Refills, Maintenance, 03/21/20 10:41:00EDT, ER Tablet, [facility]/pharmacy #[id number], 1 tablet By Mouth Every 24 hours, 176.5, cm, 03/21/20 8:21:00 EDT, Height, 83.4, kg, 11/02/18 13:42:00 EST, Dry Weight Start Date: 03/21/20 Status: Ordered Flonase 50 mcg/inh nasal spray 1 sprays, Nares, Both, 2 times a day, # 16 Gm, 0 Refills, Maintenance, 10/10/19 11:35:05 EST, [place], 1 sprays Nares, Both 2 times a [...] Maintenance, 12/17/19 11:48:00 EST, Tablet, [facility]/pharmacy #[id number], Rx resent from 11/03/16., 176.5, cm, 12/17/19 11:35:00 EST, Height, 83.4, kg, 11/02/18 13:42:00 EST, Dry Weight Start Date: 12/17/19 Status: Ordered LORazepam 2 mg oral tablet 1 tablet = 2 mg, By Mouth, 2 times a day, # 60 tablet, 0 Refills, Maintenance, 03/05/20 13:50:00 EDT, [facility]/pharmacy #[id number], 176.5, cm, 12/25/19 15:48:00 EST, Height, 83.4, kg, 11/02/18 13:42:00 EST, Dry Weight Start Date: 03/05/20 Status: Ordered metoprolol 25 mg oral tablet, extended release 25 mg, 1, tablet, By Mouth, Daily, # 90 tablet, Refills 3, Tot. Refills 3, Maintenance, 03/21/20 12:01:00 EDT, [id number].5, cm, 03/21/20 8:21:00 EDT, Height, 83.4, kg, 11/02/18 13:42:00 EST, Dry Weight Start Date: 03/21/20 Status: Ordered omeprazole 20 mg oral delayed release tablet 1 tablet = 20 mg, By Mouth, Daily, # 90 tablet, 3 Refills, Maintenance, 12/17/19 11:48:00 EST, EC Tablet[id number], 176.5, cm, 12/17/19 11:35:00 EST, Height, 83.4, kg, 11/02/18 13:42:00 EST, Dry Weight Start Date: 12/17/19 Status: Ordered tamsulosin 0.4 mg oral capsule 0.4 mg, By Mouth, Daily at bedtime, # 90 capsule, Refills 3, Tot. Refills 3, Maintenance, 12/17/19 11:48:00 EST, [id number], 176.5, cm, 12/17/19 11:35:00 EST, [...] Active Anxiety(Confirmed) Active Aortic valve prosthesis pres [id number] TAVR 2018(Confirmed) 2, 3 Active Arteriosclerotic heart [...] 23 Active PAF (paroxysmal atrial fibri llation) [id number] 6(Confirmed) Active Pituitary microadenoma(Confi rmed) 24, 25, 26 Active Restless legs syndrome (RLS)(Confirmed) Active Thrombocytopenia(Confirmed) 27, 28 06/22/09 Active Tricuspid insufficiency(Confirmed) Active Trochanteric bursitis of rig ht hip(Confirmed) Active Type 2 diabetes with nephropathy(Confirmed) Active Type 2 diabetes mellitus wit h peripheral angiopathy(Confirmed) Active 1educated about use epi pen /when call 2[employer] [facility] 37762 41 graft 5CABG 2002 6Dr nini addressing 7nephrolithiasis 8to workup 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 12urology addressing [id number] 14ortho 15chronic 16RFA 17djd xray 2-015 18xray [...]
--- OUTSIDE RECORDS SUMMARY | 2023-10-05 10:01 | XMS_ITS | Continuity of Care Document ---
Author Name Unknown Organization [facility] Kirk Tom lt Address [address] [place] [address]- Care Team Providers Care Site Medical Director Name Role Phone Charisma LENZ, Michael Boston Primary Care Physician [phone] Encounter [facility] [place] Date(s): 07/21/20 - 08/20/20 [facility] [place] operated [facility] Adult [address] [place] [address]- [facility] Allergies, Adverse Reactions, Alerts Substance Reaction [...] Bradford Comment: [06/30/2017] HIGH DOSE RECIEVED AT [facility] DR Lucero Comment: [08/12/2015] [place] [facility] [place]Admin Note: GIVEN IN CLINIC SHAM 5Admin [...] 2 times a day, # 6 LOT [id number] EXP 2-21, # 180 tablet, 0 Refills, Maintenance, 06/13/20 11:45:00 EDT, Dry Weight Start Date: 06/13/20 Status: Ordered apixaban 2.5 mg oral tablet 1 tablet = 2.5 mg, By Mouth, 2 times a day, # 180 tablet, 3 Refills, Maintenance, 03/05/20 13:50:00EDT, [facility]/pharmacy #[id number], 176.5, cm, 12/25/19 15:48:00 EST, [...] Gm, 0 Refills, Maintenance, 10/10/19 11:35:05 EST, [place], 1 sprays Nares, Both 2 times a [...] 3 Refills, Maintenance, 12/17/19 11:48:00 EST, Tablet, [facility]/pharmacy #[id number], Rx resent from 11/03/16., 176.5, [...] tablet, 0 Refills, Maintenance, 06/16/20 13:49:00 EDT, [facility]/pharmacy #[id number], 176.5, cm, 06/13/20 12:04:00 EDT, Height, 83.4, kg, 11/02/18 13:42:00 EST, Dry Weight Start Date: 06/16/20 Status: Ordered magnesium oxide 400 mg oral tablet 1 tablet = 400 mg, By Mouth, 2 times a day, # 60 tablet, 3 Refills, Maintenance, 06/16/20 11:54:00 EDT, [facility]/pharmacy #[id number], 176.5, cm, 06/13/20 12:04:00 EDT, [...] 06/16/20 9:41:00 EDT, Route to Pharmacy Electronically, [facility]/pharmacy #[id number], succinate, 176.5, cm, 06/13/20 12:04:00 EDT, Height, 83.4, kg, 11/02/18 13:42:00 EST, D... Start Date: 06/16/20 Stop Date: 06/11/21 Status: Ordered omeprazole 20 mg oral delayed release tablet 1 tablet = 20 mg, By Mouth, Daily, # 90 tablet, 3 Refills, Maintenance, 12/17/19 11:48:00 EST, EC Tablet, [facility]/pharmacy #[id number], 176.5, cm, 12/17/19 11:35:00 EST, Height, 83.4, kg, 11/02/18 13:42:00 EST, Dry Weight Start Date: 12/17/19 Status: Ordered predniSONE 20 mg oral tablet [...] 12/17/19 11:48:00 EST, Route to Pharmacy Electronically, [facility]/pharmacy #[id number], 176.5, cm, 12/17/19 11:35:00 EST, [...] Active Anxiety(Confirmed) Active Aortic valve prosthesis pres [id number] TAVR 2018(Confirmed) 2, 3 Active Arteriosclerotic heart [...] 26 Active PAF (paroxysmal atrial fibri llation) [id number] 6(Confirmed) Active Pituitary microadenoma(Confi rmed) 27, 28, 29 Active Restless legs syndrome (RLS)(Confirmed) Active Thrombocytopenia(Confirmed) 30, 31 06/22/09 Active Tricuspid insufficiency(Confirmed) Active Trochanteric bursitis of rig ht hip(Confirmed) Active Type 2 diabetes with nephropathy(Confirmed) Active Type 2 diabetes mellitus wit h peripheral angiopathy(Confirmed) Active 1educated about use epi pen /when call 2[employer] [facility] 18798 41 graft 5CABG 2002 6Dr nini addressing 7nephrolithiasis 8to workup 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 12giardiam,o/p ,culture neg 13normal IGA/TTG 14workup 15urology addressing [id number] 17ortho 18chronic 19RFA 20djd xray 2-015 21xray [...]
--- OUTSIDE RECORDS SUMMARY | 2023-10-05 10:02 | XMS_ITS | Continuity of Care Document ---
Author Name Unknown Organization [facility] Tom lt Address [address] [place] [address]- Care Team Providers Care Accounts Payable Specialist Name Role Phone Giovana Dodd NP Primary Care Physician Encounter [facility] [place] Date(s): 10/05/22 - 11/19/22 [facility] Adult [address] [place] [address]- Attending Physician: Not on Staff, Attending MD [...] Vaccine Date Status Refusal Reason SARS-CoV-2 mRNA ([id number]) vax 1 04/29/22 Given influenza virus vaccine, [...] Given 1Result Comment: [facility]-[id number] 2Result Comment: [facility]# [address] [phone] 3Location History: [place] 4Resconstance Comment: [06/30/2017] HIGH DOSE RECIEVED AT [facility] 5Resconstance Comment: [08/12/2015] Received at [facility] [place] 6Result Comment: Pfizer right deltoid lot [id number] exp 06-06-2021 [facility] 7Admin Note: GIVEN IN CLINIC [...] 09/05/22 12:57:00 EDT, Route to Pharmacy Electronically, [facility], 175, cm, 07/22/22 14:43:00 EDT, Height, 84.1, kg, 06/07/21 4:26:00 EDT, Dry Weight Start Date: 09/05/22 Status: Ordered amLODIPine 5 mg oral tablet 1 tablet, By Mouth, Daily, # 90 tablet, 1 Refills, Maintenance, 08/07/22 10:52:00 EDT, [facility], 175, cm, 07/22/22 [...] a day, # 180 tablet, 9 Refills, [facility], 175, cm, 02/09/22 10:10:00 EDT, Height, 84.1, kg, 06/07/21 4:26:00 EDT, Dry Weight Start Date: 02/10/22 Status: Ordered LORazepam 1 mg oral tablet 1 tablet = 1 mg, By Mouth, Daily at bedtime, 11/09 delivery Tuesday10/08/22, start taking Sat 10/09/22.12/10 delivery Tuesday11/08/22 33 delivery Tuesday12/08/22, # 30 tablet, 2 Refills, Maintenance, 10/05/22 14:25:00 EST, [facility]... Start Date: 10/05/22 Status: Ordered magnesium oxide 400 mg oral tablet 1 tablet, By Mouth, Daily, # 90 tablet, 1 Refills, Maintenance, 08/09/22 9:27:00 EDT, [facility], 175, cm, 07/22/22 14:43:00 EDT, Height, 84.1, kg, 06/07/21 4:26:00 EDT, Dry Weight Start Date: 08/09/22 Status: Ordered magnesium oxide 400 mg oral tablet 1 tablet, By Mouth, Daily, # 90 tablet, 11 Refills, Maintenance, 08/09/22 9:27:00 EDT, [facility], 175, cm, 07/22/22 [...] Start Date: 05/05/22 Status: Ordered nystatin topical [id number] u/gm powder 1 application, Topically, 2 times a day, # 60 Gm, 5 Refills, Maintenance, 01/14/22 10:20:00 EST, Powder, [facility], Partial fill upon patient request if the prescription is for a schedule II opioid drug., 1 application Topically... Start Date: 01/14/22 Status: Ordered omeprazole 20 mg oral enteric coated capsule 1 capsule, By Mouth, Daily, # 90 capsule, 0 Refills, Maintenance, 08/07/22 10:53:00 EDT, [facility], 175, cm, 07/22/22 14:43:00 EDT, Height, 84.1, kg, 06/07/21 4:26:00 EDT, Dry Weight Start Date: 08/07/22 Status: Ordered tamsulosin 0.4 mg oral capsule 1, capsule, By Mouth, Daily at bedtime, # 90 capsule, Refills 1, Tot. Refills 1, 05/13/22 12:10:00 EDT, Route to Pharmacy Electronically, [facility], 175, cm, 05/12/22 [...] 08/09/22 9:27:00 EDT, Route to Pharmacy Electronically, [facility], 175, cm, 07/22/22 14:43:00 EDT, Height, 84.1, kg, 06/07/21 4:26:00 EDT, Dry Weight Start Date: 08/09/22 Status: Ordered Vitamin B1 100 mg oral tablet 1, tablet, By Mouth, Daily, # 30 tablet, Refills 11, Maintenance, 08/09/22 9:27:00 EDT, Route to Pharmacy Electronically, [facility], 175, cm, 07/22/22 [...] Active Anxiety Confirmed Active Aortic valve prosthesis [id number] TAVR 2017 2, 3 Confirmed Active Arteriosclerotic [...] heart failure) systolic Confirmed Active 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 12giardiam,o/p ,culture neg 13normal IGA/TTG 14workup 15urology addressing [id number] 17ortho 18chronic 19RFA 20djd xray 2-015 21xray [...] Care Nurse Name: Giovana Dodd NP Position: [facility] PCO Associate Professional Member Role: PCP Address: Address: [address] [place] [id number]- [place] Name: Adam Dennis MD Position: [facility] Cardiology MD Member Role: Lifetime Consulting Physician Address: Address: [address] [place] [address]- Name: Jo Dillon RN Position: [facility] RN Member Role: Primary Care Nurse Name: Anh Pires RN Position: S RN Member Role: Primary Care Nurse Name: Lonnie Puente Position: S RN Member Role: Primary Care Nurse Name: Julia Khan RN Position: S RN Member Role: Primary Care Nurse Name: Jaqueline Johnson RN Position: S RN Member Role: Primary Care Nurse Name: Kathy Garcia RN Position: [facility] RN Member Role: Primary Care Nurse Name: Viki Colalzo RN Position: S RN Member Role: Primary Care Nurse Care Team Related Persons Name: SARWAT HENRIQUEZ Address: [address] [place] [address] Name: JOSEFINA CONTRERAS Address: home [address] [place] [address]
--- OUTSIDE RECORDS SUMMARY | 2023-10-05 10:02 | XMS_ITS | Continuity of Care Document ---
Author Name Unknown Organization [facility] Address [address] [place] [address]- Care Team Providers Care Director Case Name Role Phone Ju BACKWINDER, Giovana Chiu Primary Care Physician [phone] Encounter [facility] ACCT R [id number] Date(s): 12/17/22 - 02/19/23 [facility] [address] [place] [address]- Attending Physician: Tristan Stoll MD Admitting Physician: Tristan Stoll MD Allergies, Adverse Reactions, Alerts Substance Reaction [...] vaccine, inactivated 11/27/10 Give n SARS-CoV-2 mRNA ([id number]) vax 5 04/29/22 Given SARS-CoV-2 (COVID-19) mRNA [...] 1Result Comment: [facility]# [address] [phone] 2Location History: [place] 3Result Comment: [06/30/2017] HIGH DOSE RECIEVED AT [facility] 4Resconstance Comment: [08/12/2015] [place] [facility] 5Result Comment: [facility]-[id number] 6Result Comment: Pfizer right deltoid lot [id number] exp 06-06-2021 [facility] 7Admin Note: GIVEN IN [...] 09/05/22 12:57:00 EDT, Route to Pharmacy Electronically, [facility], 175, cm, 07/22/22 14:43:00 EDT, Height, 84.1, kg, 06/07/21 4:26:00 EDT, Dry Weight Start Date: 09/05/22 Status: Ordered amLODIPine 5 mg oral tablet 1 tablet, By Mouth, Daily, # 90 tablet, 1 Refills, Maintenance, 08/07/22 10:52:00 EDT, [facility], 175, cm, 07/22/22 14:43:00 [...] 90 tablet, 1 Refills, 11/24/22 14:41:00 EST, [facility], 175, cm, 09/29/22 12:43:00 EST, Height, 84.1, kg, 06/07/21 4:26:00 EDT, Dry Weight Start Date: 11/24/22 Status: Ordered Eliquis 2.5 mg oral tablet 1 tablet, By Mouth, 2 times a day, # 180 tablet, 9 Refills, 02/18/23 17:26:00 EDT, [facility], 175, cm, 01/24/23 11:05:00 EDT, Height, 84.1, kg, 06/07/21 4:26:00 EDT, Dry Weight Start Date: 02/18/23 Status: Ordered LORazepam 1 mg oral tablet 1 tablet = 1 mg, By Mouth, Daily at bedtime, 11/09 - 03/08/2312/10 - 04/07/23 3/3 delivery Sunday 05/06, start taking 05/07/23, # 30 tablet, 2 Refills, Maintenance, 02/18/23 10:24:00 EDT, [facility], 175, cm, 01/24/23 11:05:00 EDT,... Start Date: 02/18/23 Status: Ordered magnesium oxide 400 mg oral tablet 1 tablet, By Mouth, Daily, # 90 tablet, 11 Refills, Maintenance, 08/09/22 9:27:00 EDT, [facility], 175, cm, 07/22/22 14:43:00 EDT, Height, 84.1, kg, 06/07/21 4:26:00 EDT, Dry Weight Start Date: 08/09/22 Status: Ordered Melatonin Daily at bedtime, 0 Refills, Maintenance, 01/24/23 11:27:00 EDT Start Date: 01/24/23 Status: Ordered nystatin topical [id number] u/gm powder 1 application, Topically, 2 times [...] capsule, 0 Refills, Maintenance, 11/24/22 14:41:00 EST, [facility], 175, cm, 09/29/22 12:43:00 EST, Height, 84.1, kg, 06/07/21 4:26:00 EDT, Dry Weight Start Date: 11/24/22 Status: Ordered tamsulosin 0.4 mg oral capsule 1, capsule, By Mouth, Daily at bedtime, # 90 capsule, Refills 1, Tot. Refills 1, 11/24/22 14:41:00 EST, Route to Pharmacy Electronically, [facility], 175, cm, 09/29/22 12:43:00 EST, Height, 84.1, kg, 06/07/21 4:26:00 EDT, Dry Weight Start Date: 11/24/22 Status: Ordered Vitamin B1 100 mg oral tablet 1, tablet, By Mouth, Daily, # 30 tablet, Refills 11, Maintenance, 08/09/22 9:27:00 EDT, Route to Pharmacy Electronically, [facility], 175, cm, 07/22/22 14:43:00 [...] Active Anxiety Confirmed Active Aortic valve prosthesis [id number] TAVR 2017 2, 3 Confirmed Active Arteriosclerotic [...] 2020 Confirmed Active Hearing loss refer eval SEPT [...] Confirmed 07/22/22 Active PAF (paroxysmal atrial fibrillation) [id number] 6 Confirmed Active Pituitary microadenoma 26, 27, [...] pen /when call 2[facility] 81191 41 graft 5CABG 2002 6Dr nini addressing 7nephrolithiasis 8to workup 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 12giardiam,o/p ,culture neg 13normal IGA/TTG 14workup 15urology addressing [id number] 17ortho 18chronic 19RFA 20djd xray 2-015 21xray [...] Team Personnel Name: Giovana Dodd NP Position: [facility] PCO Associate Professional Member Role: PCP Address: Address: [address] [place] [id number]- Name: Adam Dennis MD Position: [facility] Cardiology MD Member Role: Lifetime Consulting Physician Address: Address: [address] [place] [address] [address] [place] [id number]- Name: Julia Yu RN Position: [facility] RN Member Role: Primary Care Nurse Name: Jo Dillon RN Position: [facility] RN Member Role: Primary Care Nurse Name: Anh Pires RN Position: S RN Member Role: Primary Care Nurse Name: Lonnie Puente Position: [facility] RN Member Role: Primary Care Nurse Name: Jaqueline Johnson RN Position: [facility] RN Member Role: Primary Care Nurse Name: Kathy Garcia RN Position: [facility] RN Member Role: Primary Care Nurse Name: Viki Collazo RN Position: [facility] RN Member Role: Primary Care Nurse Care Team Related Persons Name: SARWAT HENRIQUEZ Address: [place] [address] Name: JOSEFINA CONTRERAS Address: home [address] [place] [address]
--- OUTSIDE RECORDS SUMMARY | 2023-10-05 10:02 | XMS_ITS | Continuity of Care Document ---
Author Name Unknown Organization [facility] [place] Address [address] [place] [address]- Care Team Providers Care Outside Event Sales Specialist Name Role Phone Michael Zafar MD Primary Care Physician Encounter [facility] [place] Date(s): 03/28/20 - 04/04/20 [facility] [place] Adult [address] [place] [address]- [facility] Encounter Diagnosis Major depression(Discharge Diagnosis) - 03/28/20 Arteriosclerotic heart disease (ASHD) cabg 2002;x1(Discharge Diagnosis) - 03/28/20 Attending Physician: Michael Zafar MD Allergies, Adverse Reactions, Alerts Substance Reaction Severity Status lisinopril 1, 2 Active gabapentin unknown Active carvedilol 3 Active citalopram dizzy Active Percocet vomiting Active Remeron 4 dizziness Active Bee Stings Active Welchol muscle and joint aches Activ e Percocet 5/325 5 Active FLUoxetine dizziness Active Effexor dizziness Active 1cough 2possible 3blurred vision 4nightmares [...] Lucero Comment: [06/30/2017] HIGH DOSE RECIEVED AT [facility] 4Rrenée Comment: [08/12/2015] Received at [facility] [...] 0 Refills, Maintenance, 03/21/20 10:41:00EDT, ER Tablet, [facility]/pharmacy #[id number], 1 tablet By Mouth Every 24 hours, 176.5, cm, 03/21/20 8:21:00 EDT, Height, 83.4, kg, 11/02/18 13:42:00 EST, Dry Weight Start Date: 03/21/20 Status: Ordered Flonase 50 mcg/inh nasal spray 1 sprays, Nares, Both, 2 times a day, # 16 Gm, 0 Refills, Maintenance, 10/10/19 11:35:05 EST, [place], 1 sprays Nares, Both 2 times a [...] EST, [facility] 176.5, cm, 12/17/19 11:35:00 [...] Active Anxiety(Confirmed) Active 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 [address] 41 graft 5CABG 2002 6Dr nini addressing 7nephrolithiasis 8to workup 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 12urology addressing [id number] 14ortho 15chronic 16RFA 17djd xray 2-015 18xray 2004 LS arthritis etc 19Zung=mod depression 20BCG 21carcinoma in situ 22saw ortho 23s aw ortho;injected SEVERE pain 24endocrinology addressing 25MRI pti ;refer endo 26mri c spine 2014 27per hematology ? 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
--- OUTSIDE RECORDS SUMMARY | 2023-10-05 10:02 | XMS_ITS | Continuity of Care Document ---
Author Name Unknown Organization [facility] Address [address] [place] [address]- Care Team Providers Care Java Consultant Name Role Phone Charisma LENZ, Michael Boston Primary Care Physician Encounter [facility] Date(s): 05/05/21 - 06/04/21 [facility] Adult [address] [place] [address]- Allergies, Adverse Reactions, Alerts Substance Reaction Severity Status lisinopril 1, 2 Active citalopram dizzy Active Effexor dizziness Active gabapentin unknown Active carvedilol 3 Active Percocet vomiting Active Remeron 4 dizziness [...] Given 1Result Comment: Pfizer right deltoid lot [id number] exp 06-06-2021 [facility] 2Location History: [place] 3Resconstance Comment: [06/30/2017] HIGH DOSE RECIEVED AT [facility] 4Rrenée Comment: [08/12/2015] Received at [facility] [place] 5Admin Note: GIVEN IN [facility]IC [facility] 6Admin [...] 10:33:00 EDT, [id number], cm, 03/20/21 12:09:00 EDT, Height, 79, kg, 11/26/20 11:00:00 EST, Dry Weight Start Date: 03/25/21 Status: Ordered amLODIPine 5 mg oral tablet 5 mg, 1, tablet, By Mouth, Daily, # 90 tablet, Refills 1, Tot. Refills 1, Maintenance, 03/14/21 5:46:00 EDT, Route to Pharmacy Electronically, [facility]/pharmacy #0315, 175, cm, 02/06/21 10:40:00 EDT, [...] 3 Refills, Maintenance, 03/17/21 11:43:00 EDT, [id number], 175, cm, 02/06/21 10:40:00 EDT, Height, 79, [...] 30 tablet, 0 Refills, Maintenance, 04/16/21 12:14:00EDT, [facility]/pharmacy #0315, 175, cm, 03/20/21 12:09:00 EDT, Height, 79, kg, 11/26/20 11:00:00 EST, DryWeight Start Date: 04/16/21 Status: Ordered magnesium oxide 400 mg oral tablet 1 tablet = 400 mg, By Mouth, Daily, # 90 tablet, 3 Refills, Maintenance, 02/12/21 17:31:00 EDT, Tablet, [facility]/pharmacy #[id number], Partial fill upon patient [...] capsule, 0 Refills, Maintenance, 05/11/21 7:24:00 EDT, [facility]/pharmacy #0315, Rx resent from 05/08/21., 175, cm, 04/29/21 10:36:00 EDT, Height, 79, kg, 11/26/20 11:00:00 EST, Dry Weight Start Date: 05/11/21 Status: Ordered tamsulosin 0.4 mg oral capsule 1, capsule, By Mouth, Daily at bedtime, # 90 capsule, Refills 1, Tot. Refills 0, Maintenance, 05/08/21 14:24:00 EDT, Route to Pharmacy Electronically, [facility], 175, cm, 04/29/21 10:36:00 EDT,Height, 79, kg, 11/26/20 11:00:00 EST, Dry Weight Start Date: 05/08/21 Status: Ordered thiamine 100 mg oral tablet 100 mg, 1, tablet, By Mouth, Daily, # 30 tablet, Refills 11, Tot. Refills 11, Maintenance, 09/08/2013:24:00 EST, Route to Pharmacy Electronically, [facility]/pharmacy #[id number], 175, cm, 09/08/20 12:47:00 [...] Active Anxiety(Confirmed) Active Aortic valve prosthesis pres [id number] TAVR 2017(Confirmed) 2, 3 Active Arteriosclerotic heart [...] 25 Active PAF (paroxysmal atrial fibri llation) [id number] 6(Confirmed) Active 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, 27, 28 Active Restless legs syndrome (RLS)(Confirmed) Active Thrombocytopenia(Confirmed) 29, 30 06/22/09 Active Tricuspid insufficiency(Confirmed) Active Trochanteric bursitis of rig ht hip(Confirmed) Active Type 2 diabetes with nephropathy(Confirmed) Active Type 2 diabetes mellitus wit h peripheral angiopathy(Confirmed) Active 1educated about use epi pen /when call 2[employer] VAL[facility] 14165 41 graft 5CABG 2002 6Dr nini addressing 7nephrolithiasis 8to workup 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 12giardiam,o/p ,culture neg 13normal IGA/TTG 14workup 15urology addressing [id number] 17ortho 18chronic 19RFA 20djd xray 2-015 21xray [...]
--- OUTSIDE RECORDS SUMMARY | 2023-10-05 10:02 | XMS_ITS | Continuity of Care Document ---
Author Name Unknown Organization [facility] Address [address] [place] [address]- Care Team Providers Care Engineer Operations And Maintenance Name Role Phone Michael Zafar MD Primary Care Physician En[place] [facility] Date(s): 12/20/20 - 04/19/21 [facility] [address] [place] [id number] Attending Physician: Richard Abel MD [...] Given 1Result Comment: Pfizer right deltoid lot [id number] exp 06-06-2021 [facility] 2Location History: [place] 3Resconstance Comment: [06/30/2017] HIGH DOSE RECIEVED AT [facility] 4Resconstance Comment: [08/12/2015] Received at [facility] [place] 5Admin Note: GIVEN IN CLINIC [facility] 6Admin [...] 03/25/21 10:33:00 EDT, [id number], cm, 03/20/21 12:09:00 EDT, Height, 79, kg, 11/26/20 11:00:00 EST, Dry Weight Start Date: 03/25/21 Status: Ordered amLODIPine 5 mg oral tablet 5 mg, 1, tablet, By Mouth, Daily, # 90 tablet, Refills 1, Tot. Refills 1, Maintenance, 03/14/21 5:46:00 EDT, [facility], 175, cm, 02/06/21 10:40:00 EDT, Height, [...] 3 Refills, Maintenance, 03/17/21 11:43:00 EDT, [facility], 175, cm, 02/06/21 10:40:00 EDT, Height, 79, [...] 3 Refills, Maintenance, 02/12/21 17:31:00 EDT, Tablet, [facility]/pharmacy #0315, Partial fill upon patient request [...] Refills, Maintenance, 02/07/21 22:44:00 EDT, EC Tablet, [facility]/pharmacy #0315, 175, cm, 02/06/21 10:40:00 EDT, Height, 79, kg, 11/26/20 11:00:00 EST, Dry Weight Start Date: 02/07/21 Status: Ordered predniSONE 20 mg oral tablet 1 tablet = 20 mg, By Mouth, 2 times a day, with food or milk, # 6 tablet, 0 Refills, Maintenance, 02/06/21 10:49:00 EDT, Tablet, [facility]/pharmacy #0315, Partial fill upon patient request if the prescription is for a schedule II opioid drug., 175, cm, 0... Start Date: 02/06/21 Status: Ordered tamsulosin 0.4 mg oral capsule 0.4 mg, By Mouth, Daily at bedtime, # 90 capsule, Refills 1, Tot. Refills 1, Maintenance, 02/07/21 22:44:00 EDT, Route to Pharmacy Electronically, [facility]/pharmacy #0315, 175, cm, 02/06/21 10:40:00 EDT, Height, 79, kg, 11/26/20 11:00:00 EST, Dry Weight Start Date: 02/07/21 Status: Ordered thiamine 100 mg oral tablet 100 mg, 1, tablet, By Mouth, Daily, # 30 tablet, Refills 11, Tot. Refills 11, Maintenance, 09/08/2013:24:00 EST, Route to Pharmacy Electronically, [facility]/pharmacy #0315, 175, cm, 09/08/20 12:47:00 EST,Height, [...] Active Anxiety(Confirmed) Active Aortic valve prosthesis pres [id number] TAVR 2017(Confirmed) 2, 3 Active Arteriosclerotic heart [...] 25 Active PAF (paroxysmal atrial fibri llation) [id number] 6(Confirmed) Active 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, 27, 28 Active Restless legs syndrome (RLS)(Confirmed) Active Thrombocytopenia(Confirmed) 29, 30 06/22/09 Active Tricuspid insufficiency(Confirmed) Active Trochanteric bursitis of rig ht hip(Confirmed) Active Type 2 diabetes with nephropathy(Confirmed) Active Type 2 diabetes mellitus wit h peripheral angiopathy(Confirmed) Active 1educated about use epi pen /when call 2[facility] [employer] [facility] [address] 41 graft 5CABG 2002 6Dr nini addressing 7nephrolithiasis 8to workup 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 12giardiam,o/p ,culture neg 13normal IGA/TTG 14workup 15urology addressing [id number] 17ortho 18chronic 19RFA 20djd xray 2-015 21xray [...]
--- OUTSIDE RECORDS SUMMARY | 2023-10-05 10:02 | XMS_ITS | Continuity of Care Document ---
Author Name Unknown Organization [facility] Address [address] [place] [address]- Care Team Providers Care Pipe Organ Mechanic Apprentice Name Role Phone Charisma LENZ, Michael Boston Primary Care Physician [place] [facility] [place] 12/31/21 - 01/30/22 [facility] Adult [address] [place] [address]- Allergies, Adverse Reactions, Alerts Substance Reaction Severity [...] Vaccine (oldterm) 11/07/98 Given 1Result Comment: [facility]# [address] [phone] 2Location History: [place] 3Result Comment: [06/30/2017] HIGH DOSE RECIEVED AT [facility] 4Rrenée Comment: [08/12/2015] Received at [facility] [place] [place] 5Result Comment: Pfizer right deltoid lot [id number] exp 06-06-2021 [facility] 6Admin Note: GIVEN IN CLINIC [facility] 7Admin [...] Replace Required Details, Route to Pharmacy Electronically, [facility]/pharmacy #0315, 175, cm, 06/07/21 8:16:00 EDT, Height, [...] 3 Refills, Maintenance, 03/17/21 11:43:00 EDT, [facility], 175, cm, 02/06/21 10:40:00 EDT, Height, 79, kg, 11/26/20 11:00:00 EST, Dry Weight Start Date: 03/17/21 Status: Ordered Lasix 20 mg oral tablet See Instructions, 1 tablet By Mouth as needed for weight gain of 2lbs in a day or 5lbs in a week, #90 tablet, Refills 3, Tot. Refills 3, Maintenance, 12/17/19 11:49:00 EST, Instructions Replace Required Details, Route to Pharmacy Electronically, [facility]/... Start Date: 12/17/19 Status: Ordered LIDODERM PATCH [...] 30 tablet, 0 Refills, Maintenance, 01/25/22 11:41:00EDT, [facility], 175, cm, 01/14/22 10:06:00 EST, Height, 84.1, kg, 06/07/21 4:26:00 EDT, Dry Weight Start Date: 01/25/22 Status: Ordered magnesium oxide 400 mg oral tablet 1 tablet = 400 mg, By Mouth, Daily, # 90 tablet, 3 Refills, Maintenance, 02/12/21 17:31:00 EDT, Tablet, [facility]/pharmacy #0315, Partial fill upon patient request if the prescription is for a schedule II opioid drug., 175, cm, 02/06/21 10:40:00 EDT, Height... Start Date: 02/12/21 Status: Ordered melatonin 5 mg oral tablet By Mouth, Daily at bedtime, 0 Refills, Maintenance, 08/08/20 9:44:00 EDT, Tablet Start Date: 08/08/20 Status: Ordered nystatin topical [id number] u/gm powder 1 application, Topically, 2 times a day, # 60 Gm, 5 Refills, Maintenance, 01/14/22 10:20:00 EST, Powder, [facility], Partial fill upon patient [...] 0 Refills, Maintenance, 01/14/22 10:19:00 EST, Tablet, [facility], Partial fill upon patient request if the prescription is for a schedule II opioid drug., 175, cm,... Start Date: 01/14/22 Status: Ordered tamsulosin 0.4 mg oral capsule 1, capsule, By Mouth, Daily at bedtime, # 90 capsule, Refills 1, Tot. Refills 0, Maintenance, 05/08/21 14:24:00 EDT, Route to Pharmacy Electronically, [facility], 175, cm, 04/29/21 10:36:00 EDT,Height, 79, kg, [...] Active Anxiety(Confirmed) Active Aortic valve prosthesis pres [id number] TAVR 2017(Confirmed) 2, 3 Active Arteriosclerotic heart [...] 25 Active PAF (paroxysmal atrial fibri llation) [id number] 6(Confirmed) Active 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, 27, 28 Active Restless legs syndrome (RLS)(Confirmed) Active Thrombocytopenia hematology 2009 ? 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 12giardiam,o/p ,culture neg 13normal IGA/TTG 14workup 15urology addressing [id number] 17ortho 18chronic 19RFA 20djd xray 2-015 21xray [...]
--- OUTSIDE RECORDS SUMMARY | 2023-10-05 10:02 | XMS_ITS | Continuity of Care Document ---
Author Name Unknown Organization [facility] Address [address] [place] [address]- Care Team Providers Care Compliance Consultant Name Role Phone Michael Zafar MD Primary Care Physician [phone] [place] [facility] [place]): 12/05/21 - 04/04/22 [facility] [address], [place] [id number] Attending Physician: Caitlyn Elizabeth DO Admitting Physician: Caitlyn Elizabeth DO Referring Physician: Michael Zafar MD Allergies, Adverse [...] (oldterm) 11/07/98 Given 1Result Comment: [facility]# [address] [phone] 2Location History: [place] 3Resconstance Comment: [06/30/2017] HIGH DOSE RECIEVED AT [facility] 4Rrenée Comment: [08/12/2015] Received at [facility] [place] 5Result Comment: Pfizer right deltoid lot [id number] exp 06-06-2021 [facility] 6Admin Note: GIVEN IN CLINIC SH[facility] [...] 03/24/22 10:26:00 EDT, Route to Pharmacy Electronically, [facility], 175, cm, 03/05/22 11:48:00 EDT, Height, 84.1, kg, 06/07/21 4:26:00 EDT,... Start Date: 03/24/22 Status: Ordered amLODIPine 5 mg oral tablet 1 tablet, By Mouth, Daily, # 90 tablet, 1 Refills, [facility], 175, cm, 02/09/22 10:10:00 [...] 90 tablet, 1 Refills, 09/01/21 11:50:00 EDT, [facility], 175, cm, 08/12/21 15:35:00 EDT, Height, 84.1, kg, 06/07/21 4:26:00 EDT, Dry Weight Start Date: 09/01/21 Status: Ordered Eliquis 2.5 mg oral tablet 1 tablet, By Mouth, 2 times a day, # 180 tablet, 9 Refills, [facility], 175, cm, 02/09/22 10:10:00 EDT, Height, 84.1, kg, 06/07/21 4:26:00 EDT, Dry Weight Start Date: 02/10/22 Status: Ordered LORazepam 1 mg oral tablet 1 tablet = 1 mg, By Mouth, Daily at bedtime, to fill on Monday 03/26 before , # 30 tablet, 0 Refills, Maintenance, 03/22/22 13:17:00 EDT, [facility], 175, cm, 03/05/22 11:48:00 EDT, Height, 84.1, kg, 06/07/21 4:26:00 EDT, . Start Date: 03/22/22 Status: Ordered magnesium oxide 400 mg oral tablet 1 tablet, By Mouth, Daily, # 90 tablet, 1 Refills, [facility], 175, cm, 02/09/22 10:10:00 EDT, Height, 84.1, kg, 06/07/21 4:26:00 EDT, Dry Weight Start Date: 02/10/22 Status: Ordered melatonin 5 mg oral tablet By Mouth, Daily at bedtime, 0 Refills, Maintenance, 08/08/20 9:44:00 EDT, Tablet Start Date: 08/08/20 Status: Ordered nystatin topical 407274 u/gm powder 1 application, Topically, 2 times a day, # 60 Gm, 5 Refills, Maintenance, 01/14/22 10:20:00 EST, Powder, [facility], Partial fill upon patient request if the prescription is for a schedule II opioid drug., 1 application Topically... Start Date: 01/14/22 Status: Ordered omeprazole 20 mg oral enteric coated capsule 1 capsule, By Mouth, Daily, # 90 capsule, 0 Refills, [facility], 175, cm, 02/09/22 10:10:00 EDT, Height, 84.1, kg, 06/07/21 4:26:00 EDT, Dry Weight Start Date: 02/10/22 Status: Ordered tamsulosin 0.4 mg oral capsule 1, capsule, By Mouth, Daily at bedtime, # 90 capsule, Refills 0, Route to Pharmacy Electronically, [facility], 175, cm, 02/09/22 10:10:00 EDT, Height, 84.1, kg, 06/07/21 4:26:00 EDT, Dry Weight Start Date: 02/12/22 Status: Ordered thiamine 100 mg oral tablet 100 mg, 1, tablet, By Mouth, Daily, # 30 tablet, Refills 11, Tot. Refills 11, Maintenance, 10/05/2116:07:00 EST, Route to Pharmacy Electronically, [facility], 175, cm, 09/23/21 12:36:00 [...] Active Anxiety(Confirmed) Active Aortic valve prosthesis pres [id number] TAVR 2017(Confirmed) 2, 3 Active Arteriosclerotic heart [...] 25 Active PAF (paroxysmal atrial fibri llation) [id number] 6(Confirmed) Active 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, 27, 28 Active Restless legs syndrome (RLS)(Confirmed) Active Thrombocytopenia hematology 2009 ? immune(Confirmed) 29, 30 06/22/09 Active Tricuspid insufficiency(Confirmed) Active Trochanteric bursitis of rig ht hip(Confirmed) Active Type 2 diabetes with nephropathy(Confirmed) Active Type 2 diabetes mellitus wit h peripheral angiopathy(Confirmed) Active 1educated about use epi pen /when call 2[facility] [id number] 41 graft 5CABG 2002 6Dr nini addressing 7nephrolithiasis 8to workup 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 12giardiam,o/p ,culture neg 13normal IGA/TTG 14workup 15urology addressing [id number] 17ortho 18chronic 19RFA 20djd xray 2-015 21xray [...]
--- OUTSIDE RECORDS SUMMARY | 2023-10-05 10:02 | XMS_ITS | Continuity of Care Document ---
Author Name Unknown Organization [facility] ter Address [address] [place] [id number]- Care Team Providers Care Upsetter Name Role Phone Leo Breen DO Primary Care Physician [place] [facility] [place]): [place]09[place]23 - 09/13/[address] [address]- Encounter Diagnosis Patella fracture(Final) - 09/07/23 Fall(Final) - 09/07/23 Left knee pain(Final) - 09/07/23 Discharge Disposition: A-Transfer SNF Attending Physician: Sathish LENZ, Daija Admitting Physician: Katiana LENZ, Jacky Bolden Referring Physician: Not on Staff, Referring MD [...] vaccine, inactivated 11/27/10 Give n SARS-CoV-2 mRNA ([id number]) vax 6 04/29/22 Given SARS-CoV-2 (COVID-19) mRNA [...] Pneumococcal Vaccine (oldterm) 11/07/98 Given 1Result Comment: [id number] 2Result Comment: [facility]# [address] [id number] 3Location History: [place] 4Result Comment: [06/30/2017] HIGH DOSE RECIEVED AT [facility] 5Result Comment: [08/12/2015] Received at [facility] [place] 6Result Comment: [facility]-[id number] 7Result Comment: Pfizer right deltoid lot [id number] exp 06-06-2021 [facility] 8Admin Note: GIVEN IN CLINIC [...] 14:29:00 EDT, Route to Pharmacy Electronically, [facility], 175, cm, 03/16/23 12:17:00 EDT, Height, 84.1, kg, 06/07/21 4:26:00 EDT, Dry Weight Start Date: 04/07/23 Status: Ordered amLODIPine 5 mg oral tablet 1 tablet, By Mouth, Daily, # 90 tablet, 1 Refills, Maintenance, 07/05/23 13:28:00 EDT, [facility], 175, cm, 06/13/23 [...] tablet, 1 Refills, Maintenance, 05/13/23 10:04:00 EDT, [facility], 175, cm, 04/12/23 [...] tablet, 9 Refills, 02/18/23 17:26:00 EDT, [facility], 175, cm, 01/24/23 [...] Replace Required Details, Route to Pharmacy Electronically, [facility], 175, cm, 06/13/23... Start Date: 06/17/23 Status: Ordered HydroCORTisone 1% Topical 1 applicator, Topically, 3 times a day, 0 Refills, Maintenance, Ointment Start Date: 09/13/23 Status: Ordered LORazepam 0.5 mg oral tablet 0.5 tablet = 0.25 mg, By Mouth, Daily at bedtime, for 6 days, # 3 tablet, 0 Refills, Acute 09/19/2315:14:00 EST, 09/13/23 15:14:00 EST, Tablet, Partial fill upon patient request if the prescription is for a schedule II opioid drug. Start Date: 09/13/23 Stop Date: 09/19/23 Status: Ordered magnesium oxide 400 mg oral tablet 1 tablet, By Mouth, Daily, # 90 tablet, 11 Refills, Maintenance, 08/13/23 17:38:00 EDT, [facility], 175, cm, 08/12/23 [...] Start Date: 09/13/23 Status: Ordered nystatin topical 785423 u/gm powder 1 application, Topically, 2 times a day, # 60 Gm, 1 Refills, Maintenance, 07/17/23 18:25:00 EDT, Powder, [facility], 1 application Topically 2 times a day, 175, cm, 06/13/23 13:20:00 EDT, Height Start Date: 07/17/23 Status: Ordered omeprazole 20 mg oral enteric coated capsule 1 capsule, By Mouth, Daily, # 90 capsule, 1 Refills, Maintenance, 06/13/23 13:22:00 EDT, [facility], 175, cm, 06/13/23 13:20:00 EDT, Height Start Date: 06/13/23 Status: Ordered oxyCODONE 5 mg oral tablet 5 mg, Tablet, By Mouth, Every 6 hours, PRN for Pain , Severe, Routine, 09/13/23 12:25:00 EST Start Date: 09/13/23 Stop Date: 09/14/23 Status: Discontinued oxyCODONE 5 mg oral tablet 5 mg, By Mouth, Every 6 hours, PRN, for 3 days, # 12 tablet, Refills 0, Tot. Refills 0, Acute 09/16/23 12:29:00 EST, Pain , Severe, 09/13/23 12:29:00 EST, Print Requisition, Partial fill upon patientrequest if the prescription is for a schedule II op... Start Date: 09/13/23 Stop Date: 09/16/23 Status: Ordered Pyridoxine Tablet 50 mg, By [...] 05/13/23 10:04:00 EDT, Route to Pharmacy Electronically, [facility], 175, cm, 04/12/23 [...] Active Anxiety Confirmed Active Aortic valve prosthesis [id number] TAVR 2017 1, 2 Confirmed Active Arteriosclerotic [...] cm ct 2020 Confirmed 11/02/21 Active Mild major depression, single episode 21 Confirmed Active Mild mitral insufficiency Confirmed Active Neck pain Confirmed Active Nephrolithiasis Confirmed Active Knee osteoarthritis 22 Confirmed Active Breast pain, left refer breast center Confirmed 07/22/22 Active PAF (paroxysmal atrial fibrillation) [id number] 6 Confirmed Active 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 11giardiam,o/p ,culture neg 12normal IGA/TTG 13workup [id number] 15chronic 16RFA 17djd xray 2-015 18xray 2004 LS arthritis etc 19BCG 20carcinoma in situ 21Per Dr. Zafar 07/22/22. 22saw ortho 23endocrinology addressing 24MRI pti ;refer endo 25mri c spine 2014 26per hematology ? 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;to follow 27workup in progress Results Radiology Reports * Exam Date Time Procedure Performing Provider Status 09/08/23 7:10 PM Elbow Min 3 Views Left Patt Ortiz ; Auth (Verified) Notes: (Elbow Min 3 Views Left) Reason For Exam: Decreased ROM RESULT: Elbow Min 3 Views Left Elbow Min 3 Views Left, 3 views Reason: Decreased ROM; Clinical Question(s): Fracture COMPARISON: None. FINDINGS: No fracture or dislocation. Mild arthropathy in the elbow joint. No joint effusion. IMPRESSION: No acute abnormality identified. WSN: [id number] Ordering Physician: Sheri Herrera Dictated By: Mirza Brasher MD Dictated Date/Time: 09/08/23 10:25 p Reviewed By: Mirza Brasher MD Signed By: Mirza Brasher MD Signed Date/Time: 09/08/23 10:25 pm Transcribed By: WOJCIECH Transcribed Date/Time: 09/08/23 10:25 pm * Exam Date Time Procedure Performing Provider Status 09/07/23 10:36 PM Chest 2 Views Frontal and Lat Dennis Zhu; Auth (Verified) Notes: (Chest 2 Views Frontal and Lat) Reason For Exam: fall;Other: RESULT: Chest 2 Views Frontal and Lat Chest 2 Views Frontal and Lat Reason: Other:; fall; Clinical Question(s): Other:; pneumonia COMPARISON: 11/29/2020. FINDINGS: LINES AND TUBES: Dual-lead left subclavian pacer wires are intact. LUNGS AND PLEURA: Increased interstitial markings throughout both lung granger. Trace pleural effusions. No pneumothorax. HEART, MEDIASTINUM AND BRETT: Mild prominence of the cardiac silhouette. Aorta is mildly calcified. Status post TAVR. BONES AND SOFT TISSUES: No acute abnormality. IMPRESSION: Pulmonary edema and trace pleural effusions. WSN: [id number] Ordering Physician: Kalia Huerta Dictated By: Tiffany Weldon MD Dictated Date/Time: 09/07/23 10:53 p Reviewed By: Tiffany Weldon MD Signed By: Tiffany Weldon MD Signed Date/Time: 09/07/23 10:53 pm Transcribed By: WOJCIECH Transcribed Date/Time: 09/07/23 10:50 pm * Exam Date Time Procedure Performing Provider Status 09/06/23 10:[address] Cervical Spine W/O Contrast Renae Navarro; Auth (Verified) Notes: (CT Cervical Spine W/O Contrast) Reason For Exam: Neck trauma, dangerous injury mechanism;Other: RESULT: CT Cervical Spine W/O Contrast Please see dictation of CT scan of the head. WSN: [id number] Ordering Physician: Eren Torres Dictated By: Mirza Brasher MD Dictated Date/Time: 09/06/23 10:51 p Reviewed By: Mirza Brasher MD Signed By: Mirza Brasher MD Signed Date/Time: 09/06/23 10:51 pm Transcribed By: WOJCIECH Transcribed Date/Time: 09/06/23 10:50 pm * Exam Date Time Procedure Performing Provider Status 09/06/23 10:24 PM Knee 1 or 2 Views Left Richard Whitehead; Auth (Verified) Notes: (Knee 1 or 2 Views Left) Reason For Exam: Trauma RESULT: Knee 1 or 2 Views Left Knee 1 or 2 Views Left, views Hx of Present Illness: Pt presented after a fall with left knee pain.; Reason: Trauma; Clinical Question(s): Fracture; Order Comment: COMPARISON: 11/10/2018 FINDINGS: Pronounced arthropathy in the left knee. There does appear to be acute interruption of the patella consistent with fracture. Effusion noted. Extensive vascular calcification. IMPRESSION: Acute patellar fracture with intra-articular extension. Mild separation of fracture fragments. WSN: [id number] Ordering Physician: Eren Torres Dictated By: Mirza Brasher MD Dictated Date/Time: 09/06/23 10:44 p Reviewed By: Mirza Brasher MD Signed By: Mirza Brasher MD Signed Date/Time: 09/06/23 10:44 pm Transcribed By: WOJCIECH Transcribed Date/Time: 09/06/23 10:43 pm * Exam Date Time Procedure Performing Provider Status 09/06/23 10:[address] Pelvis W/O Contrast Annamaria Velasquez; Auth (Verified) Notes: (CT Pelvis W/O Contrast) Reason For Exam: Pelvic trauma;Other: RESULT: CT Pelvis W/O Contrast CT Lumbar Spine W/O Contrast, CT Pelvis W/O Contrast Hx of Present Illness: Pt presented after a fall with left knee pain.; Reason: Other:; Spine fracture, lumbar, , pelvic traumatic; Clinical Question(s): Fracture Dislocation TECHNIQUE: Thin section axial images were acquired through the lumbar spine and pelvis. Bone and soft tissue algorithms were reconstructed along with coronal and sagittal reformats. Weight-based protocol using automatic tube modulation was used to optimize exposure parameters. CTDIvol Body: 14.59 mGy, DLP Body: 1360 mGy*cm. COMPARISON: CT abdomen/pelvis dated 05/04/2022. FINDINGS: [place] Findings, Lines and Tubes: None. Spine: No fractures or bone lesion. Bones are diffusely demineralized. There is lumbar spondylosis is straightened. Multilevel moderate to severe degenerative disc disease. Calcific enthesopathy adjacent to bilateral ischial tuberosities. Soft tissues: No acute abnormality in the paravertebral soft tissues. Visualized abdomen and pelvis: Severe sigmoid diverticulosis with mild fat stranding surrounding a diverticulum which partially protrudes into the left inguinal hernia. Formed stool in distended rectum with mild perivesical fat stranding is seen. Severe atherosclerotic calcifications. Bilobed ectasia of the infrarenal aorta with the largest segment measuring 2.8 x 2.7 cm, previously 2.6 x 2.6 cm. 2 mm stone in the right kidney lower pole and bilateral renal vascular calcifications. Trabeculated bladder wall and a 2 cm diverticulum in the left superior wall. Enlarged prostate gland measures 5.3 x 4.7 cm. Small right moderate left inguinal hernias. There is a focus of coarse calcification in the left inguinal hernia sac, likely chronic fat necrosis. IMPRESSION: 1. No acute fracture or subluxation. 2. Degenerative changes as described above. 3. Mild diverticulitis in the sigmoid colon abutting the left inguinal hernia defect. 4. Distended rectum with formed stool and mild perivesical fat stranding, which may indicate developing stercoral colitis. 5. Abdominal aortic ectasia measuring up to 2.8 cm, slightly increased from 2.6 cm in 202. Recommend follow-up ultrasound or CTA in 10 years per simplified ACR and SVS guidelines. Reference: ChaikofEL et al. J Vasc Surg 2018; 67:2-77. Society for Vascular Surgery 2018 practice guidelines on the care of patients with an abdominal aortic aneurysm. The impression above was relayed to Eren Torres DO by Dr. Tiffany Weldon via [employer] with acknowledgement received on 09/06/2023 at 10:49 PM. WSN: [id number] Ordering Physician: Eren Torres Dictated By: Tiffany Weldon MD Dictated Date/Time: 09/06/23 10:50 p Reviewed By: Tiffany Weldon MD Signed By: Tiffany Weldon MD Signed Date/Time: 09/06/23 10:50 pm Transcribed By: [email or web address] Transcribed Date/Time: 09/06/23 10:37 pm * Exam Date Time Procedure Performing Provider Status 09/06/23 10:[address] Lumbar Spine W/O Contrast Ron , Renae Z; Auth (Verified) Notes: (CT Lumbar Spine W/O Contrast) Reason For Exam: Spine fracture, lumbar, traumatic;Other: RESULT: CT Lumbar Spine W/O Contrast CT Lumbar Spine W/O Contrast, CT Pelvis W/O Contrast Hx of Present Illness: Pt presented after a fall with left knee pain.; Reason: Other:; Spine fracture, lumbar, , pelvic traumatic; Clinical Question(s): Fracture Dislocation TECHNIQUE: Thin section axial images were acquired through the lumbar spine and pelvis. Bone and soft tissue algorithms were reconstructed along with coronal and sagittal reformats. Weight-based protocol using automatic tube modulation was used to optimize exposure parameters. CTDIvol Body: 14.59 mGy, DLP Body: 1360 mGy*cm. COMPARISON: CT abdomen/pelvis dated 05/04/2022. FINDINGS: [place] Findings, Lines and Tubes: None. Spine: No fractures or bone lesion. Bones are diffusely demineralized. There is lumbar spondylosis is straightened. Multilevel moderate to severe degenerative disc disease. Calcific enthesopathy adjacent to bilateral ischial tuberosities. Soft tissues: No acute abnormality in the paravertebral soft tissues. Visualized abdomen and pelvis: Severe sigmoid diverticulosis with mild fat stranding surrounding a diverticulum which partially protrudes into the left inguinal hernia. Formed stool in distended rectum with mild perivesical fat stranding is seen. Severe atherosclerotic calcifications. Bilobed ectasia of the infrarenal aorta with the largest segment measuring 2.8 x 2.7 cm, previously 2.6 x 2.6 cm. 2 mm stone in the right kidney lower pole and bilateral renal vascular calcifications. Trabeculated bladder wall and a 2 cm diverticulum in the left superior wall. Enlarged prostate gland measures 5.3 x 4.7 cm. Small right moderate left inguinal hernias. There is a focus of coarse calcification in the left inguinal hernia sac, likely chronic fat necrosis. IMPRESSION: 1. No acute fracture or subluxation. 2. Degenerative changes as described above. 3. Mild diverticulitis in the sigmoid colon abutting the left inguinal hernia defect. 4. Distended rectum with formed stool and mild perivesical fat stranding, which may indicate developing stercoral colitis. 5. Abdominal aortic ectasia measuring up to 2.8 cm, slightly increased from 2.6 cm in 2022. Recommend follow-up ultrasound or CTA in 10 years per simplified ACR and SVS guidelines. Reference: ChaikofEL et al. J Vasc Surg 2018; 67:2-77. Society for Vascular Surgery 2018 practice guidelines on the care of patients with an abdominal aortic aneurysm. The impression above was relayed to Eren Torres DO by Dr. Tiffany Weldon via [employer] with acknowledgement received on 09/06/2023 at 10:49 PM. WSN: [id number] Ordering Physician: Eren Torres Dictated By: Tiffany Weldon MD Dictated Date/Time: 09/06/23 10:50 p Reviewed By: Tiffany Weldon MD Signed By: Tiffany Weldon MD Signed Date/Time: 09/06/23 10:50 pm Transcribed By: WOJCIECH Transcribed Date/Time: 09/06/23 10:37 pm * Exam Date Time Procedure Performing Provider Status 09/06/23 10:[address] Head/Brain W/O Contrast Renae Velasquez; Cecilia (Verified) Notes: (CT Head/Brain W/O Contrast) Reason For Exam: Brain mass or lesion;Other: RESULT: CT Head/Brain W/O Contrast CT Head/Brain W/O Contrast INDICATION: Hx of Present Illness: Pt presented after a fall with left knee pain.; Reason: Other:; Brain mass or lesion; Clinical Question(s): Hematoma TECHNIQUE: Noncontrast head CT using axial technique was reconstructed in axial and coronal planes.Noncontrast spiral CT through the cervical spine was formatted in 3 planes. Automatic tube modulation was used for the cervical spine and iterative dose reconstruction was used for both the head and cervical spine to optimize scan parameters and image quality. CTDIvol Body: 14.35 mGy, DLP Body: 356 mGy*cm. CTDIvol Head: 44.32 mGy, DLP Head: 798 mGy*cm. COMPARISON: None. FINDINGS: [place] Findings, Lines and Tubes: None. BRAIN AND EXTRA-AXIAL SPACES: No parenchymal hemorrhage, midline shift, or mass effect. Woodson-white matter differentiation is wellpreserved. No acute infarct. Probable chronic infarcts in the basal ganglia bilaterally. Ventricles, sulci, and basilar cisterns are normal. No white matter lesions. No subarachnoid hemorrhage. No subdural or epidural collection. CALVARIUM, SKULL BASE, AND SOFT TISSUES: No fractures or suspicious bony lesions. The paranasal sinuses and mastoid air cells are clear. Visualized orbits and globes are intact. The extracranial soft tissues are unremarkable. CERVICAL SPINE: No fracture. No acute osseous abnormalities. Postoperative findings status post fusion at the C5-C7 levels. Mild multilevel degenerative disc space narrowing and end plate irregularity. OTHER BONES: No acute abnormality. CERVICAL SOFT TISSUES AND LUNG APICES: Normal soft tissues. Visualized lung apices are clear. IMPRESSION: No acute abnormality of the head or cervical spine. WSN: [id number] Ordering Physician: Eren Torres Dictated By: Mirza Brasher MD Dictated Date/Time: 09/06/23 10:35 p Reviewed By: Mirza Brasher MD Signed By: Mirza Brasher MD Signed Date/Time: 09/06/23 10:35 pm Transcribed By: [email or web address] Transcribed Date/Time: 09/06/23 10:27 pm Vital Signs Most recent to oldest [Reference Range]: 1 2 3 Oxygen Saturation [94-100 %] 96 % (09/13/23 2:08 PM) 99 % (09/13/23 12:22 PM) 94 % (09/12/23 10:00 PM) Pulse Rate [55-90 bpm] 71 bpm (09/13/23 2:08 PM) 72 bpm (09/13/23 12:22 PM) 72 bpm (09/13/23 7:59 AM) Blood Pressure [90-138/55-84 mm Hg] 122/65mm Hg (09/13/23 2:08 PM) 103/62mm Hg (09/13/23 12:22 PM) 118/68mm Hg (09/13/23 7:59 AM) Respiratory Rate [16-30 br/min] 18 br/min (09/13/23 2:08 PM) 16 br/min (09/13/23 12:22 PM) 18 br/min (09/13/23 12:06 PM) Temperature [96.8-100.4 DegF] 98.0 DegF (09/13/23 2:08 PM) 98.0 DegF (09/13/23 12:22 PM) 97.6 DegF (09/12/23 4:23 PM) Mode of Delivery (Oxygen) Room air (09/13/23 2:08 PM) Room air (09/13/23 12:22 PM) Room air (09/12/23 10:00 PM) Blood pressure sites Arm, left (09/13/23 2:08 PM) Arm, left (09/13/23 12:22 PM) Arm, right (09/13/23 7:59 AM) Temperature Route Temporal (09/13/23 2:08 PM) Oral (09/13/23 12:22 PM) Oral (09/12/23 4:23 PM) Social History Social History Type Response Smoking Status Former smoker, quit more than 30 days ago; Type: Cigarettes; Type: Cigars entered on: 01/24/23 Sex Admission evaluation note * Kalia Huerta DO: PERFORM, MODIFY, MODIFY, MODIFY, MODIFY, MODIFY, MODIFY, MODIFY, MODIFY, MODIFY, MODIFY, MODIFY, MODIFY, MODIFY, MODIFY, MODIFY, MODIFY, MODIFY, MODIFY, MODIFY, MODIFY, MODIFY, MODIFY, MODIFY, MODIFY, MODIFY, MODIFY, MODIFY, MODIFY, MODIFY, MODIFY, MODIFY, MODIFY, MODIFY, MODIFY, MODIFY, MODIFY, MODIFY, MODIFY, MODIFY, MODIFY, MODIFY, MODIFY, MODIFY Event Display: Admission Note Authored Date: Patient: ??STEVEN SWAN ? Age:??88 Years?Sex:??Male?:??1935?? 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 ?? Per ED note: Patient states he was at home when he fell while walking in his kitchen.?? Patient states he did not lose consciousness but may have struck his head.?? He states he may have fallen around 2 PM, but is unclear about how long he had been on the ground for.?? He was able to get the attention of his neighbors who called EMS.?? The patient complains of significant left knee swelling and pain, as well as hip and low back discomfort.?? He denies any preceding chest pain, shortness of breath before the fall.?? He has no neck pain, no headache, no dizziness, or any other symptoms at this time.?? Per EMS the patient has been very agitated and angry.?? No meds were given in route. Orthopedic trauma surgery service states that the patient can be placed in a knee immobilizer, weightbearing as tolerated, and follow-up with Dr. Laboy outpatient.?? States that there is no acute surgical intervention needed at this time. Patient's neighbor who is his primary caregiver over the last 7 years is now at the bedside.?? She says she last saw him 3 days ago at which time he was fine. t baseline the patient is normally able to carry on a conversation, mow his lawn and care for himself. It wasnoted in the ED that he was agitated and there may be concern for sundowning. ?? Upon arrival to the ED patient hemodynamically stable, afebrile and apparent of 98.1, blood pressure 147/73, saturating well on room air 100%, CBC within normal limits, platelets are 128, electrolytes are within normal limits, creatinine is 1.2 at its baseline, total bili of 2.6, CK is 126, negative for COVID, imaging CT head/ brain and CT spine shows No acute abnormality of the head or cervical s pine. CT pelvis without contrast. CT lumbar spine without contrast shows 1.?? No acute fracture or subluxation. 2.?? Degenerative changes as described above. 3.?? Mild diverticulitis in the sigmoid colon abutting the left inguinal hernia defect. 4.?? Distended rectum with formed stool and mild perivesical fat stranding, which may indicate developing stercoral colitis. 5.?? Abdominal aortic ectasia measuring up to 2.8 cm, slightly increased from 2.6 cm in 202. Recommend follow-up ultrasound or CTA in 10 years per simplified ACR and SVS guidelines. Reference: Mercedes EL et al. J Vasc Surg 2018; 67:2-77. Society for Vascular Surgery 2018 practice guidelines on thecare of patients with an abdominal aortic aneurysm. ?? Upon my initial evaluation, Patient had??mechanical fall today. ??Patient unable to really provide history at this time as??he seems to be delirious. Attempted to call??patient's edge grinder howeverthere was no answer. Patient??reports that he did not have any??diarrhea, nausea, or vomiting??prior to falling. ??Patient reports that he did not have any chest pain before falling. Unclear if patient had loss of consciousness or had head strike. Review of Systems Additional review of systems information:??All other systems reviewed and otherwise negative as mentioned above. Objective ? Vital Signs?? Pulse Rate: 81 bpm (09/07/23 20:16:00) Respiratory Rate: 22 br/min (09/07/23 20:16:00) Systolic Blood Pressure: 130 mm Hg (09/07/23 20:16:00) Diastolic Blood Pressure:??97 mm Hg??High (09/07/23 20:16:00) Mean Arterial Pressure: 108 mm Hg (09/07/23 20:16:00) Pulse Pressure: 33 mm Hg (09/07/23 20:16:00) Oxygen Saturation: 94 % (09/07/23 20:16:00) Mode of Delivery (Oxygen): Room air (09/07/23 20:16:00) Early Warning Score:??10??Critical (09/07/23 20:17:18) ? Physical Exam Constitutional: Alert, in no distress. Mental Status: Oriented to person, place, but not time or date Head: Normocephalic. Eyes: Pupils are equal, round and reactive to light. Extraocular muscles intact. Ear, Nose and Throat: Oropharynx clear, mucous membranes moist. Ears and nose without masses, lesions or deformities. Trachea midline. Neck: Supple, Full range of motion. Respiratory: Clear to auscultation. No wheezing, rales or rhonchi. Cardiovascular: S1 S2 regular. No murmurs, rubs or gallops. No JVD. No peripheral edema. Gastrointestinal: Abdomen soft, non-tender, non-distended. Normal bowel sounds. No pulsatile mass. No hepatosplenomegaly. Neurologic: Cranial nerves II-XII grossly intact. No focal neurological deficits. Moves all extremities spontaneously. Sensation intact bilaterally. Skin: No rashes or lesions. No petechiae or purpura.?? Musculoskeletal: No cyanosis or clubbing. No gross deformities. Normal range of motion. 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 Pt admitted for further workup of fall. ?? Fall Left patellar fracture Patient had??mechanical fall today. ??Patient unable to really provide history at this time as??he seems to be delirious. Attempted to call??patient's edge grinder however there was no answer. Patient??reports that he did not have any??diarrhea, nausea, or vomiting??prior to falling. ??Patient reports that he did not have any chest pain before falling. Unclear if patient had loss of consciousness or had head strike. Work-up??includes??CT head Noncon shows no acute abnormality.?? CT cervical spine shows no acute abnormality. CT pelvis??without contrast??shows??signs of mild diverticulitis and sterile coral colitis CT lumbar spine without contrast shows no acute fracture or subluxation When patient presented he had left??knee??swelling and pain.?? Left knee x-ray shows Acute patellarfracture with intra-articular extension. Mild separation of fracture fragments.?? Unlikely to be infection??to cause fall. ??However will??pursue further work-up with UA and chest x-ray. Unlikely to be ACS at this time however will obtain troponins as unclear of what??caused the fall. Patient was seen by Ortho??and they recommend patient can be placed in a knee immobilizer, weightbearing as tolerated, and follow-up with Dr. Laboy outpatient.?? States that there is no acute surgical intervention needed at this time. Chest x-ray does show pulmonary congestion and possible left- sided??small??pleural??effusion. ??Patient does not appear to be??in heart failure at this time. ??We will continue home Lasix ?? Plan -traffic monitor specialist -Every 4 neurochecks -Trend troponin x2??every 3 hours -Orthostats -UA -Chest x-ray -Tylenol 975 mg twice daily scheduled -Oxycodone 2.5 mg every 6 for moderate pain -Can consider placing morphine 2 mg IV every 6 as needed??for severe pain -Knee immobilizer, weightbearing as tolerated, follow-up with??Ortho outpatient - Please call EP lab to interrogate the his PPM in the AM ?? Delirium It was reported by ED that patient's baseline was that patient is normally able to carry on a conversation, mow his lawn and care for himself.?? However it was noted that patient??began to??become disoriented and??not at his baseline. When I spoke to the patient, he was extremely hard of hearing.?? Patient was oriented to self and place however not time or date.?? Patient was unable to provide further details of??the events that occurred??today but??he is able to tell me that he did fall today. Attempted to??gather more information from patient's edge grinder who is his neighbor.?? However she did not answer the phone. ?? Plan -Delirium precautions -UA -Chest x-ray -Bladder scan every??6 hours ?? Alcohol use Patient reports that he does drink alcohol. ??Patient is unable to tell me when his last drink was. Patient is on Ativan at home??and also on thiamine daily as well. ??Unclear??as to why patient is on a benzo taper??outpatient I suspect that??this is due for alcohol use. Patient is unlikely having alcohol withdrawal at this time.?? However will??maintain CIWA protocol without as needed Ativan at this time. ?? Plan -CIWA protocol -Continue patient's home Ativan??at 0.5 mg twice daily??as needed -Continue vitamins such as thiamine, pyridoxine,??multivitamin,??and folate ?? Chronic Problems: CAD s/p CABG, Carotid Artery Stenosis s/p CEA, HLD: Continue home dose Atorvastatin and Aspirin Hx Afib: Continue home Eliquis Gout: Continue home dose Allopurinol GERD: Start Pantoprazole. Hold home dose Omeprazole BPH- continue home tamsulosin and finasteride HTN- continue Amlodipine 5mg daily in the AM ?? Will attempt to confirm medications with manager intensive care unit in the AM. ?? Quality Measures Diet- Cardiac diet DVT prophylaxis-Eliquis Code Status-presumed full code ?? Patient seen and??discussed with attending Dr. Bowman ?? Kalia Huerta,??DO PGY-2 Internal Medicine Pager [phone]/ cortext? Histories Allergies Allergies ?(Active and Proposed Allergies Only) traZODone? (Severity: Unknown severity, Onset: Unknown) Lactose? 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 (Severity: Unknown severity, Onset: Unknown) Percocet 5/325? (Severity: Unknown severity, Onset: Unknown) ?Comments: Pt states the last time he hade it, 16 years ago, it made him vomit lisinopril? (Severity: Unknown severity, Onset: Unknown) ?Comments: cough ?Comments: possible carvedilol? (Severity: Unknown severity, Onset: Unknown) ?Comments: blurred vision Remeron? (Severity: Unknown severity, Onset: Unknown) ?Reactions: dizziness ?Comments: nightmares Percocet? (Severity: Unknown severity, Onset: Unknown) ?Reactions: vomiting FLUoxetine? (Severity: Unknown severity, Onset: Unknown) ?Reactions: dizziness Effexor? (Severity: Unknown severity, Onset: Unknown) ?Reactions: dizziness citalopram? (Severity: Unknown severity, Onset: Unknown) ?Reactions: dizzy Welchol? (Severity: Unknown severity, Onset: Unknown) ?Reactions: muscle and joint aches ? Past Medical History/Problem List Active Problems??(45) Adjustment disorder with depressed mood Anxiety Aortic valve prosthesis [id number] TAVR 2018 Arteriosclerotic heart disease (ASHD) cabg 2003;x1 Benign Essential Hypertension Benign essential microscopic hematuria Bladder cancer 2010/refuses f/u cyysto 2021 advised re abn cytology BPH (benign prostatic hyperplasia) Breast pain, left refer breast center Cardiac pacemaker Carpal tunnel syndrome Cervical disc disorder Chronic anticoagulation Chronic back pain spine center 2021 Chronic diarrhea episodic normal IGA TTG 2014 Chronic gout Decreased urine output GERD H/O endarterectomy RT 2009,left 2020 DEC History of lacunar cerebrovascular accident MRI 2020 Hx of CABG x 1;2002 Hyperlipidemia Hypomagnesemia Insomnia Knee osteoarthritis LBBB (left bundle branch block) Left inguinal hernia Mass of left parotid gland 1.[address] 2020 dec Memory loss noemal b12,thiamine tsh Mild major depression, single episode Mild mitral insufficiency Neck pain Nephrolithiasis PAF (paroxysmal atrial fibrillation) [id number] Pituitary microadenoma Restless legs syndrome (RLS) 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 immune referred Tricuspid insufficiency Trochanteric bursitis of right hip Type 2 diabetes mellitus with peripheral angiopathy Type 2 diabetes with nephropathy Weakness ? Past Surgical History Cystoscopy: 05/05/22 CT of abdomen and pelvis No definite acute abnormality within the abdomen or pelvis. Specifically no evidence of hydronephrosis or renal/ureteral stone.: 05/04/22 CEA - Carotid endarterectomy LEFT: 10/29/21 CT of head and neck- chronic lacunar infarcts, chronic microangiopathy and volume loss. no acute infarct. severe stenosis of left ICA, 1.3cm hyperenhancing mass ??left parotid tail: 10/23/21 EKG finding- Vpaced. rate 67: 10/23/21 Echocardiogram ef 50% AVR: 11/19/20 CT of brain age realted volume loss: 08/04/20 EKG sinus left BBB: 11/06/19 Echocardiogram ef 35-40 %/TAVR: 11/06/19 Carotid imaging ??rt s/px sx,left 70-80%9%: 08/07/19 TAVR - Transcatheter aortic valve replacement: 11/09/18 MRI of lumbar spine- Mild scoliosis of the lumbar spine is new since prior study. Diffuse lumbar spondylosis as described above, progressed at L2-L3 and L4-5: 06/15/17 MRI of pituitary fossa: 11/23/15 Magnetic resonance (eg, proton) imaging, spinal canal and contents, cervical; without contrast material: 10/23/15 Quadriceps tendon rupture repair: 12/20/14 Prostatectomy: 07/05/14 Endarterectomy of carotid artery NEC rt: 03/20/10 Cholecystectomy NEC: 01/27/09 CT of abdomen: 12/20/08 duplex arterial legs: 10/15/08 Carotid imagin08/05/08 Colonoscopy: 04/14/07 EGD- duodenitis: 04/14/07 Magnetic resonance angiography, abdomen, with or without contrast material(s): 04/05/07 Echocardiogram: 09/20/06 Carotid imagin07/28/04 CXR - Chest X-ray: 02/04/03 Fiberoptic esophagoscopy Aortic valve prosthesis bovine 2001 Imaging of carotid arteries by duplex scan with spectrum analysis MRA aortic valve prosthesis CABG x 1 - Coronary artery bypass graft x 1 Spirometry ? Social History Alcohol Details:??Use: Past. Employment/School Details:??Status: Retired. 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 Exercise Details:??Self assessment: No routine exercise. Keeps active around home and yard. Reports overall health good and bad, exercise tolerance fair . Home/Environment Details:??Living situation: Home/Independent. ??Lives with: Alone. ??Other: receives cleaning services. Nutrition/Health Details:??Diet: Regular. Other Details:??Name: no issues driving. Substance Abuse Details:??Use: Never. Tobacco Details:??Use: Former smoker, quit more than 30 days ago. ??Type: Cigarettes, Cigars. ? Family History Mother (): ASHD - Atherosclerotic heart disease Son: Asthma ? Medications Home Medications Acetaminophen (acetaminophen 500 mg oral tablet)?2?tab(s)?1,000?Milligram?By Mouth?Every 8 hours?as needed?as needed for fever Allopurinol (allopurinol 100 mg oral tablet)?2?tablet?By Mouth?Daily Amlodipine (amLODIPine 5 mg oral tablet)?1?tab(s)?By Mouth?Daily apixaban (Eliquis 2.5 mg oral tablet)?1?tab(s)?By Mouth?2 times a day Aspirin (aspirin 81 mg oral tablet)?1?tab(s)?81?Milligram?By Mouth?Daily?for 90?Days Atorvastatin (atorvastatin 40 mg oral tablet)?1?tab(s)?By Mouth?Daily at bedtime Cholecalciferol (Vitamin D3 2000 intl units oral capsule)?1?capsule?2,000?InternationalUnit?By Mouth?Daily?for 30?Days Furosemide (furosemide 20 mg oral tablet)?See Instructions?TAKE 1 TABLET BY MOUTH EVERY DAY Lorazepam (LORazepam 1 mg oral tablet)?1?tab(s)?1?Milligram?By Mouth?Daily at bedtime?as needed?as needed for anxiety?taper as directed Lorazepam (LORazepam 0.5 mg oral tablet)?See Instructions?take as directed altrating with 1mgdose Magnesium Oxide (magnesium oxide 400 mg oral tablet)?1?tab(s)?By Mouth?Daily Nystatin Topical (nystatin topical 940645 u/gm powder)?1?venancio?Topically?2 times a day Omeprazole (omeprazole 20 mg oral enteric coated capsule)?1?capsule?By Mouth?Daily Tamsulosin (tamsulosin 0.4 mg oral capsule)?1?capsule?By Mouth?Daily at bedtime Thiamine (Vitamin B1 100 mg oral tablet)?1?tablet?By Mouth?Daily ? Inpatient Medications Medications (16) Active SCHEDULED: (9) Allopurinol 100 mg Tablet (allopurinol 100 mg oral tablet) ??200 mg, By Mouth, Daily Amlodipine 5 mg Tablet (amLODIPine 5 mg oral tablet) ??5 mg, By Mouth, Daily Docusate Sodium 100 mg Capsule (Colace sodium 100 mg oral capsule) ??100 mg 1 capsule, By Mouth, 2 times a day Finasteride 5 mg Tablet (finasteride 5 mg oral tablet) ??5 mg, By Mouth, Daily Furosemide 20 mg Tablet (furosemide 20 mg oral tablet) ??20 mg, By Mouth, Daily NaCl 0.9% Flush 3ml (NaCL 0.9% Flush) ??3 mL, IV Push, Every 8 hours Polyethylene Glycol 17 Gm Powder (MiraLax Powder) ??17 Gm 1 pack/packet, By Mouth, 2 times a day Senna Tablet (Senna 8.6 mg oral tablet) ??17.2 mg 2 tablet, By Mouth, Daily Tamsulosin 0.4 mg Capsule (tamsulosin 0.4 mg oral capsule) ??0.4 mg, By Mouth, Daily CONTINUOUS: (0) PRN: (7) Acetaminophen 325 mg Tablet (Acetaminophen Tablet) ??650 mg, By Mouth, Every 8 hours Al hydroxide/Mg hydroxide/simethicone 200 mg-200 mg-20 mg/5 mL Susp UD (Maalox Plus Liquid) ??30 mL, By Mouth, Every 8 hours Dextromethorphan-Guaifenesin 20 mg-200 mg/10 mL Liqu UD (Robitussin DM Liquid) ??10 mL, By Mouth, Every 4 hours Melatonin 3 mg Tablet (Melatonin Tablet) ??3 mg, By Mouth, Daily at bedtime NaCl 0.9% Flush 3ml (NaCL 0.9% Flush) ??3 mL, IV Push, Every 8 hours Senna Tablet ??8.6 mg 1 tablet, By Mouth, 2 times a day Simethicone 80 mg Chewable Tablet (Simethicone Tablet) ??80 mg, Chew, 3 times a day ? Results Recent Labs BLOOD COUNT & DIFF WBC 10.0 k/mm3 ()?? 09/06/2023 21:08 RBC 4.52 m/mm3 (Low)?? 09/06/2023 21:08 Hgb 14.4 Gm/dL ()?? 09/06/2023 21:08 Hct 42.3 % ()?? 09/06/2023 21:08 MCV 93.6 femtoliters ()?? 09/06/2023 21:08 MCH 31.9 pg ()?? 09/06/2023 21:08 MCHC 34.0 g/dL ()?? 09/06/2023 21:08 Platelet Count 128 k/mm3 (Low)?? 09/06/2023 21:08 RDW-SD 45.2 femtoliters ()?? 09/06/2023 21:08 MPV 11.5 femtoliters ()?? 09/06/2023 21:08 Nucleated RBC (Automated) 0.0 #/100 WBC'S ()?? 09/06/2023 21:08 Abs. NRBC 0.0 k/mm3 ()?? 09/06/2023 21:08 Abs. Neut 7.2 k/mm3 (High)?? 09/06/2023 21:08 Abs. Lymph 1.7 k/mm3 ()?? 09/06/2023 21:08 Abs. Bell 1.0 k/mm3 ()?? 09/06/2023 21:08 Abs. Eo 0.1 k/mm3 ()?? 09/06/2023 21:08 Abs. Baso 0.0 k/mm3 ()?? 09/06/2023 21:08 Neut % 71.2 % ()?? 09/06/2023 21:08 Lymph % 17.2 % ()?? 09/06/2023 21:08 Bell % 9.9 % ()?? 09/06/2023 21:08 Eos % 0.8 % ()?? 09/06/2023 21:08 Baso % 0.4 % ()?? 09/06/2023 21:08 RBC Morphology SLIGHT ()?? 09/06/2023 21:08 Platelet Estimate DECREASED ()?? 09/06/2023 21:08 Platelet Comment MODERATE ()?? 09/06/2023 21:08 Imm Gran 0.5 % ()?? 09/06/2023 21:08 Abs. Imm Gran 0.1 k/mm3 ()?? 09/06/2023 21:08 ?? CARDIAC CK, Total 126 units/L ()?? 09/06/2023 21:08 ?? CHEM GENERAL Sodium 139 mmol/L ()?? 09/06/2023 21:08 Potassium 3.6 mmol/L ()?? 09/06/2023 21:08 Chloride 101 mmol/L ()?? 09/06/2023 21:08 Bicarbonate Level 23 mmol/L ()?? 09/06/2023 21:08 Anion Gap 15 ()?? 09/06/2023 21:08 Glucose Level 117 mg/dL (High)?? 09/06/2023 21:08 Glucose, POC 116 mg/dL (High)?? 09/07/2023 11:05 BUN 21 mg/dL ()?? 09/06/2023 21:08 Creatinine-Blood 1.2 mg/dL ()?? 09/06/2023 21:08 Estimated GFR Creatinine 59 ML/MIN/1.73 M2 ()?? 09/06/2023 21:08 Calcium 9.3 mg/dL ()?? 09/06/2023 21:08 Protein, Total 6.9 Gm/dL ()?? 09/06/2023 21:08 Albumin 4.3 Gm/dL ()?? 09/06/2023 21:08 AG Ratio 1.7 ()?? 09/06/2023 21:08 Alkaline Phosphatase 104 units/L ()?? 09/06/2023 21:08 AST (SGOT) 18 units/L ()?? 09/06/2023 21:08 ALT (SGPT) 13 units/L ()?? 09/06/2023 21:08 Bilirubin, Total 2.6 mg/dL (High)?? 09/06/2023 21:08 ?? VIROLOGY Influenza A PCR NEGATIVE ()?? 09/07/2023 00:31 Influenza B PCR NEGATIVE ()?? 09/07/2023 00:31 RSV PCR NEGATIVE ()?? 09/07/2023 00:31 COVID-19 PCR Specimen Source NASAL ()?? 09/07/2023 00:31 COVID-19 PCR Result NEGATIVE ()?? 09/07/2023 00:31 ? * Dwight Bowman MD: PERFORM Event Display: Admission Note Authored Date: ??Attending Attestation:? I have seen and evaluated this patient.? I have discussed the case and its management with the resident and agree with the findings and estefany documented in the resident's note.?? I?? will continue to provide care to this patient till 7 AMof the admitting date.? 88-year-old male with a past medical history of left bundle branch blockage, CAD, s/p CABG, mitral valve stenosis, hypertension, hematuria, bladder cancer, elevated PSA, BPH, hyperlipidemia, type 2 diabetes mellitus, osteoarthritis, anxiety, depression who did come with a complaint of fall.?? Unfortunately unable to get any reliable information from the patient he was very hard of hearing.?? He is found to have comminuted?? patellar fracture without significant displacement.?? Ortho have recommended to follow-up as a outpatient and need a knee immobilizer.?? Because of reliability of the information and mode of fall is not clear.?? We will get a syncopal work-up.?? We will get a urinalysis and chest x-ray to rule out any infectious etiology.?? We will continue with the neurochecks of 4 hours.?? Will trend troponin.?? We will get a pacemaker interrogation.?? Cardiology * Event Display: Cardiac Rhythm Strips Authored Date: Hospital Progress note * Nkechi Tomlinson RN: PERFORM, SIGN, VERIFY Event Display: Progress Note Hospital Authored Date: Patient: STEVEN SWAN Age: 88 years Sex: Male : 1935 Associated Diagnoses: None Author: Grindahl RN, Nkechi Findings Narrative/Incidental Pt refused new PIV (provider aware and ok'd). Pt also refused AM vitals d/t wanting to sleep. . Discharge Information Rehabilitation Discharge : Rehab Discharge Index 09/12/2023 10:13 EST Walker: distance < 10 * Sathish LENZ, Daija: PERFORM Event Display: Progress Note Hospital Authored Date: [id number] Patient: ??STEVEN SWAN ? Age:??88 Years?Sex:??Male?:??1935?? Subjective Patient is calm and cooperative, denies any acute complaints He is hard of hearing, better on the right side Not on opiates or PRNs HCP form signed by him over the weekend, CM working on placement Review of Systems Negative except as noted above Allergies Allergies ?(Active and Proposed Allergies Only) traZODone? (Severity: Unknown severity, Onset: Unknown) Lactose? 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 (Severity: Unknown severity, Onset: Unknown) Percocet 5/325? (Severity: Unknown severity, Onset: Unknown) ?Comments: Pt states the last time he hade it, 16 years ago, it made him vomit lisinopril? (Severity: Unknown severity, Onset: Unknown) ?Comments: cough ?Comments: possible carvedilol? (Severity: Unknown severity, Onset: Unknown) ?Comments: blurred vision Remeron? (Severity: Unknown severity, Onset: Unknown) ?Reactions: dizziness ?Comments: nightmares Percocet? (Severity: Unknown severity, Onset: Unknown) ?Reactions: vomiting FLUoxetine? (Severity: Unknown severity, Onset: Unknown) ?Reactions: dizziness Effexor? (Severity: Unknown severity, Onset: Unknown) ?Reactions: dizziness citalopram? (Severity: Unknown severity, Onset: Unknown) ?Reactions: dizzy Welchol? (Severity: Unknown severity, Onset: Unknown) ?Reactions: muscle and joint aches ? Past Medical History Active Problems??(45) Adjustment disorder with depressed mood Anxiety Aortic valve prosthesis [id number] TAVR 2018 Arteriosclerotic heart disease (ASHD) cabg 2003;x1 Benign Essential Hypertension Benign essential microscopic hematuria Bladder cancer 2010/refuses f/u cyysto 2021 advised re abn cytology BPH (benign prostatic hyperplasia) Breast pain, left refer breast center Cardiac pacemaker Carpal tunnel syndrome Cervical disc disorder Chronic anticoagulation Chronic back pain spine center 2021 Chronic diarrhea episodic normal IGA TTG 2014 Chronic gout Decreased urine output GERD H/O endarterectomy RT 2009,left 2020 DEC History of lacunar cerebrovascular accident MRI 2020 Hx of CABG x 1;2002 Hyperlipidemia Hypomagnesemia Insomnia Knee osteoarthritis LBBB (left bundle branch block) Left inguinal hernia Mass of left parotid gland 1.[address] 2020 dec Memory loss noemal b12,thiamine tsh Mild major depression, single episode Mild mitral insufficiency Neck pain Nephrolithiasis PAF (paroxysmal atrial fibrillation) [id number] 6 Pituitary microadenoma Restless legs syndrome (RLS) 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 immune referred Tricuspid insufficiency Trochanteric bursitis of right hip Type 2 diabetes mellitus with peripheral angiopathy Type 2 diabetes with nephropathy Weakness ? Past Surgical History Cystoscopy: 05/05/22 CT of abdomen and pelvis No definite acute abnormality within the abdomen or pelvis. Specifically no evidence of hydronephrosis or renal/ureteral stone.: 05/04/22 CEA - Carotid endarterectomy LEFT: 10/29/21 CT of head and neck- chronic lacunar infarcts, chronic microangiopathy and volume loss. no acute infarct. severe stenosis of left ICA, 1.3cm hyperenhancing mass ??left parotid tail: 10/23/21 EKG finding- Vpaced. rate 67: 10/23/21 Echocardiogram ef 50% AVR: 11/19/20 CT of brain age realted volume loss: 08/04/20 EKG sinus left BBB: 11/06/19 Echocardiogram ef 35-40 %/TAVR: 11/06/19 Carotid imaging ??rt s/px sx,left 70-80%9%: 08/07/19 TAVR - Transcatheter aortic valve replacement: 11/09/18 MRI of lumbar spine- Mild scoliosis of the lumbar spine is new since prior study. Diffuse lumbar spondylosis as described above, progressed at L2-L3 and L4-5: 06/15/17 MRI of pituitary fossa: 11/23/15 Magnetic resonance (eg, proton) imaging, spinal canal and contents, cervical; without contrast material: 10/23/15 Quadriceps tendon rupture repair: 12/20/14 Prostatectomy: 07/05/14 Endarterectomy of carotid artery NEC rt: 03/20/10 Cholecystectomy NEC: 01/27/09 CT of abdomen: 12/20/08 duplex arterial legs: 10/15/08 Carotid imagin08/05/08 Colonoscopy: 04/14/07 EGD- duodenitis: 04/14/07 Magnetic resonance angiography, abdomen, with or without contrast material(s): 04/05/07 Echocardiogram: 09/20/06 Carotid imagin07/28/04 CXR - Chest X-ray: 02/04/03 Fiberoptic esophagoscopy Aortic valve prosthesis bovine 2001 Imaging of carotid arteries by duplex scan with spectrum analysis aortic valve prosthesis MRA CABG x 1 - Coronary artery bypass graft x 1 Spirometry ? Social History Alcohol Details:??Use: Past. Employment/School Details:??Status: Retired. 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 Exercise Details:??Self assessment: No routine exercise. Keeps active around home and yard. Reports overall health good and bad, exercise tolerance fair . Home/Environment Details:??Living situation: Home/Independent. ??Lives with: Alone. ??Other: receives cleaning services. Nutrition/Health Details:??Diet: Regular. Other Details:??Name: no issues driving. Substance Abuse Details:??Use: Never. Tobacco Details:??Use: Former smoker, quit more than 30 days ago. ??Type: Cigarettes, Cigars. ? Objective Vital Signs?? Temperature: 97.4 DegF (09/12/23 11:49:00) Temperature Route: Oral (09/12/23 11:49:00) Pulse Rate: 63 bpm (09/12/23 11:49:00) Respiratory Rate: 17 br/min (09/12/23 11:49:00) Systolic Blood Pressure: 125 mm Hg (09/12/23 11:49:00) Diastolic Blood Pressure: 65 mm Hg (09/12/23 11:49:00) Blood pressure sites: Arm, left (09/12/23 11:49:00) Mean Arterial Pressure: 85 mm Hg (09/12/23 11:49:00) Pulse Pressure: 60 mm Hg (09/12/23 11:49:00) Oxygen Saturation: 96 % (09/12/23 11:49:00) Mode of Delivery (Oxygen): Room air (09/12/23 11:49:00) Early Warning Score: 2 (09/12/23 11:50:04) ? Intake/Output? 09/09 17:15 09/12 07:00 09/11 07:00 09/10 07:00 09/09 07:00 ?? 09/12 13:37 09/12 13:37 09/12 06:59 09/11 06:59 09/10 06:59 Intake ? 1714 ?236 ? 1006 ?354 ?118 Output ? 1225 ?400 ?525 ?0 ?0 Net Total ?489 ? -164 ?481 ?354 ?118 ? Urine Count ? 12 ?0 ?3 ?2 ?7 ? Mobility & Ambulation Level Mobility & Ambulation Level Activity Assistance: Maximum assistance, Two person assistance (09/11/23) Activity Status ADL: Complete bedrest, Reposition every 2 hours (09/11/23) Ambulatory devices needed: Brace (09/11/23) ? Physical Exam Gen: appears comfortable, NAD Resp: CTAB, no wheezes, rales or rhonchi Abd: soft, NT, ND Neuro: alert, oriented to name and place, not time Ext; no edema _ Home Medications Acetaminophen (acetaminophen 500 mg oral tablet)?2?tab(s)?1,000?Milligram?By Mouth?Every 8 hours?as needed?as needed for fever Allopurinol (allopurinol 100 mg oral tablet)?2?tablet?By Mouth?Daily Amlodipine (amLODIPine 5 mg oral tablet)?1?tab(s)?By Mouth?Daily apixaban (Eliquis 2.5 mg oral tablet)?1?tab(s)?By Mouth?2 times a day Aspirin (aspirin 81 mg oral tablet)?1?tab(s)?81?Milligram?By Mouth?Daily?for 90?Days Atorvastatin (atorvastatin 40 mg oral tablet)?1?tab(s)?By Mouth?Daily at bedtime Cholecalciferol (Vitamin D3 2000 intl units oral capsule)?1?capsule?2,000?InternationalUnit?By Mouth?Daily?for 30?Days Furosemide (furosemide 20 mg oral tablet)?See Instructions?TAKE 1 TABLET BY MOUTH EVERY DAY Lorazepam (LORazepam 1 mg oral tablet)?1?tab(s)?1?Milligram?By Mouth?Daily at bedtime?as needed?as needed for anxiety?taper as directed Lorazepam (LORazepam 0.5 mg oral tablet)?See Instructions?take as directed altrating with 1mgdose Magnesium Oxide (magnesium oxide 400 mg oral tablet)?1?tab(s)?By Mouth?Daily Nystatin Topical (nystatin topical 719508 u/gm powder)?1?venancio?Topically?2 times a day Omeprazole (omeprazole 20 mg oral enteric coated capsule)?1?capsule?By Mouth?Daily Tamsulosin (tamsulosin 0.4 mg oral capsule)?1?capsule?By Mouth?Daily at bedtime Thiamine (Vitamin B1 100 mg oral tablet)?1?tablet?By Mouth?Daily ? Inpatient Medications Medications (26) Active SCHEDULED: (21) Acetaminophen 325 mg Tablet (acetaminophen 325 mg oral tablet) ??975 mg, By Mouth, Every 8 hours Allopurinol 100 mg Tablet (allopurinol 100 mg oral tablet) ??200 mg, By Mouth, Daily Amlodipine 5 mg Tablet (amLODIPine 5 mg oral tablet) ??5 mg, By Mouth, Daily Apixaban 2.5 mg Tablet (Eliquis) ??2.5 mg, By Mouth, 2 times a day Aspirin 81 mg Chew Tablet (aspirin 81 mg oral tablet, chewable) ??81 mg, By Mouth, Daily Atorvastatin 40 mg Tablet (atorvastatin 40 mg oral tablet) ??40 mg, By Mouth, Daily at bedtime Docusate Sodium 100 mg Capsule (Colace sodium 100 mg oral capsule) ??100 mg 1 capsule, By Mouth, 2 times a day Finasteride 5 mg Tablet (finasteride 5 mg oral tablet) ??5 mg, By Mouth, Daily Folic Acid 1 mg Tablet (Folic Acid Tablet) ??1 mg, By Mouth, Daily Furosemide 20 mg Tablet (furosemide 20 mg oral tablet) ??20 mg, By Mouth, Daily Lorazepam 0.5 mg Tablet (LORazepam 2 mg oral tablet) ??0.25 mg, By Mouth, Daily at supper Melatonin 3 mg Tablet (Melatonin Tablet) ??3 mg, By Mouth, Daily at bedtime Multivitamin Tablet ??1 tablet, By Mouth, Daily NaCl 0.9% Flush 3ml (NaCL 0.9% Flush) ??3 mL, IV Push, Every 8 hours Pantoprazole 20 mg EC Tablet (pantoprazole 20 mg oral delayed release tablet) ??20 mg, By Mouth, Daily Polyethylene Glycol 17 Gm Powder (MiraLax Powder) ??17 Gm 1 pack/packet, By Mouth, 2 times a day Pyridoxine 50 mg Tablet (Pyridoxine Tablet) ??50 mg, By Mouth, Daily Senna Tablet (Senna 8.6 mg oral tablet) ??17.2 mg 2 tablet, By Mouth, Daily Tamsulosin 0.4 mg Capsule (tamsulosin 0.4 mg oral capsule) ??0.4 mg, By Mouth, Daily Thiamine 100 mg Tablet (Thiamine Tablet) ??100 mg, By Mouth, 2 times a day Vitamin D 1000 IU Tablet (Vitamin D3 1000 intl units oral tablet) ??2,000 International_Units, By Mouth, Daily CONTINUOUS: (0) PRN: (5) Al hydroxide/Mg hydroxide/simethicone 200 mg-200 mg-20 mg/5 mL Susp UD (Maalox Plus Liquid) ??30 mL, By Mouth, Every 8 hours Dextromethorphan-Guaifenesin 20 mg-200 mg/10 mL Liqu UD (Robitussin DM Liquid) ??10 mL, By Mouth, Every 4 hours NaCl 0.9% Flush 3ml (NaCL 0.9% Flush) ??3 mL, IV Push, Every 8 hours Senna Tablet ??8.6 mg 1 tablet, By Mouth, 2 times a day Simethicone 80 mg Chewable Tablet (Simethicone Tablet) ??80 mg, Chew, 3 times a day ? Results Recent Labs CHEM GENERAL Glucose, POC 138 mg/dL (High)?? 09/11/2023 17:16 ?? TOXICOLOGY/TDM Barbiturate Screen, Urine NONE DETECTED ()?? 09/11/2023 14:48 Cannabinoid Screen, Urine NONE DETECTED ()?? 09/11/2023 14:48 Cocaine Metabolite Screen, Urine NONE DETECTED ()?? 09/11/2023 14:48 Methadone Screen, Urine NONE DETECTED ()?? 09/11/2023 14:48 Benzodiazepine Screen, Urine NONE DETECTED ()?? 09/11/2023 14:48 Amphetamine Screen, Urine NONE DETECTED ()?? 09/11/2023 14:48 Opiate Screen, Urine NONE DETECTED ()?? 09/11/2023 14:48 Oxycodone Screen, Urine NONE DETECTED ()?? 09/11/2023 14:48 Buprenorphine, Urine Random NONE DETECTED ()?? 09/11/2023 14:48 Fentanyl Screen, Urine Result NONE DETECTED ()?? 09/11/2023 14:48 ?? UA/URINALYSIS Appear/Color, Urine YELLOW ()?? 09/11/2023 14:48 Specific [place], Urine 1.038 (High)?? 09/11/2023 14:48 pH, Urine 5.5 ()?? 09/11/2023 14:48 Albumin, Urine 1+ (Abnormal)?? 09/11/2023 14:48 Glucose, Urine NEGATIVE ()?? 09/11/2023 14:48 Ketones, Urine TRACE (Abnormal)?? 09/11/2023 14:48 Bilirubin, Urine 1+ (Abnormal)?? 09/11/2023 14:48 Hemoglobin, Urine 1+ (Abnormal)?? 09/11/2023 14:48 Nitrite, Urine NEGATIVE ()?? 09/11/2023 14:48 Leukocyte, Urine NEGATIVE ()?? 09/11/2023 14:48 Urobilinogen 2 mg/dL (Abnormal)?? 09/11/2023 14:48 WBC's, Urine 4 /HPF ()?? 09/11/2023 14:48 RBC's, Urine 18 /HPF (High)?? 09/11/2023 14:48 Mucus SLIGHT /LPF ()?? 09/11/2023 14:48 Hold Urine Culture Testing available 48 hours from time of collection. ()?? 09/11/2023 14:48 ? Abnormal Labs ?? CHEM GENERAL ??Glucose, POC ??138 mg/dL (High) ??09/11/2023 17:16 ? TOXICOLOGY/TDM ??Amphetamine Screen, Urine ??NONE DETECTED () ??09/11/2023 14:48 ??Barbiturate Screen, Urine ??NONE DETECTED () ??09/11/2023 14:48 ??Benzodiazepine Screen, Urine ??NONE DETECTED () ??09/11/2023 14:48 ??Buprenorphine, Urine Random ??NONE DETECTED () ??09/11/2023 14:48 ??Cannabinoid Screen, Urine ??NONE DETECTED () ??09/11/2023 14:48 ??Cocaine Metabolite Screen, Urine ??NONE DETECTED () ??09/11/2023 14:48 ??Fentanyl Screen, Urine Result ??NONE DETECTED () ??09/11/2023 14:48 ??Methadone Screen, Urine ??NONE DETECTED () ??09/11/2023 14:48 ??Opiate Screen, Urine ??NONE DETECTED () ??09/11/2023 14:48 ??Oxycodone Screen, Urine ??NONE DETECTED () ??09/11/2023 14:48 ? UA/URINALYSIS ??Albumin, Urine ??1+ (Abnormal) ??09/11/2023 14:48 ??Appear/Color, Urine ??YELLOW () ??09/11/2023 14:48 ??Bilirubin, Urine ??1+ (Abnormal) ??09/11/2023 14:48 ??Glucose, Urine ??NEGATIVE () ??09/11/2023 14:48 ??Hemoglobin, Urine ??1+ (Abnormal) ??09/11/2023 14:48 ??Hold Urine Culture ??Testing available 48 hours from time of collection. () ??09/11/2023 14:48 ??Ketones, Urine ??TRACE (Abnormal) ??09/11/2023 14:48 ??Leukocyte, Urine ??NEGATIVE () ??09/11/2023 14:48 ??Mucus ??SLIGHT /LPF () ??09/11/2023 14:48 ??Nitrite, Urine ??NEGATIVE () ??09/11/2023 14:48 ??RBC's, Urine ??18 /HPF (High) ??09/11/2023 14:48 ??Specific [place], Urine ??1.038 (High) ??09/11/2023 14:48 ??Urobilinogen ??2 mg/dL (Abnormal) ??09/11/2023 14:48 ? Note: Critical results are displayed in red. ? Blood Glucose Trend Glucose, POC:??138 mg/dL??High (09/11/23 17:16:00) ? Urinalysis Albumin, Urine: 1+ Abnormal (14:48) Appear/Color, Urine: YELLOW (14:48) Bilirubin, Urine: 1+ Abnormal (14:48) Glucose, Urine: NEGATIVE (14:48) Hemoglobin, Urine: 1+ Abnormal (14:48) Hold Urine Culture: Testing available 48 hours from time of collection. (14:48) Ketones, Urine: TRACE Abnormal (14:48) Leukocyte, Urine: NEGATIVE (14:48) Mucus: SLIGHT (14:48) Nitrite, Urine: NEGATIVE (14:48) pH, Urine: 5.5 (14:48) RBC's, Urine:??18 /HPF??High (14:48) Specific [place], Urine:??1.038??High (14:48) Urobilinogen: 2 mg/dL Abnormal (14:48) WBC's, Urine: 4 /HPF (14:48) ?? Microbiology ?? COVID-19, RSV, and Flu A/B, Rapid PCR?? Completed?? Source: Nasal Body Site: Nose Collected Dt/Tm: 09/07/2023 00:15 Last Updated Dt/Tm: 09/07/2023 01:31 ? 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 ??Found to have left patellar fracture, no intervention??per orthopedic.?? Significantly delirious in hospital. ?? -Alert but not oriented, very hard of hearing -Very restless today, continues to try and climb out of bed -Still not oriented enough to a point for ensuring he has healthcare proxy, medical social consultant and geriatric team following along -Appreciate geriatric updated recommendations, they recommend scheduling low- dose lorazepam 0.25 Mgdaily given history of alcohol and benzo use -Nursing unable to assess CIWA given patient's overall mentation ?? -Altered mentation could be combination of acute hospital delirium superimposed on some dementia with age in the setting of recent fall and fracture -No leukocytosis -Renal function electrolytes acceptable -TSH and B12 within normal limits -UA negative for UTI -We will avoid the use of restraints, appreciate ongoing geriatric team recommendations ? Fall Left patellar fracture Patient had mechanical fall .?? Patient unable to really provide history at this time as he seems to be delirious. When patient presented he had left knee swelling and pain.?? Left knee x-ray shows Acute patellar fracture with intra-articular extension. Mild separation of fracture fragments. Patient was seen by Ortho?States that there is no acute surgical intervention needed at this time. -Tylenol 975 mg??TID scheduled -dilaudid 2 mg po. -Knee immobilizer, weightbearing as tolerated, follow-up with Ortho outpatient ? Delirium Possible underlying cognitive decline HCP form signed by patient on 09/10/23 Geriatric team following Schedule lorazepam as mentioned above ? Alcohol use Patient reports that he does drink alcohol.?? Per friend Josefina significant alcohol use but unable to quantify Currently no signs of withdrawal, CIWA scale has been ordered but hard to assess given delirium Scheduled diazepam at suppertime ?? Chronic Problems: CAD s/p CABG, Carotid Artery Stenosis s/p CEA, HLD: Continue home dose Atorvastatin and Aspirin, and lasix Hx Afib: Continue home Eliquis Gout: Continue home dose Allopurinol GERD: Start Pantoprazole. Hold home dose Omeprazole BPH- continue home tamsulosin and finasteride HTN- continue Amlodipine 5mg daily ?? Quality Measures Diet- Cardiac diet DVT prophylaxis-Eliquis Code Status-presumed full code for now ?? Previous provider spoke with Dr. Leo Breen who is his primary care physician he??mentioned??thatthe patient has he has seen him only twice in the clinic in June and July.?? Patient's memory has been declining.?? Family not involved at all.?? Neighbor is someone who brings the patient to the physician.?? He was not clear if the patient is drinking alcohol. ?? Patient apparently has adjustment disorder with depressed mood and was trying to taper off him fromlorazepam and consider SSRI in the future.?? Patient has been on lorazepam for 20 years Patient with a history of bladder cancer 2010 refuses follow-up cystoscopy in 2021 advised to have it done and the patient declined treatment. ? OMN:??dc to rehab 09/13, CM working on placement ?Order Date/Time ??Order Action ??Order Name ??Order Detail ??09/12/2023 09:24 ??Discontinue ??Caustic Pump Operator ??Indicated for: Other: REQUIRED TO DOCUMENT OTHER REASON, fall, 09/07/23 20:44:00 EDT ? * Jh LENZ, Alvaro Bolden: PERFORM, MODIFY, MODIFY, MODIFY, MODIFY, MODIFY Event Display: Progress Note Hospital Authored Date: [id number] Patient: ??STEVEN SWAN ? Age:??88 Years?Sex:??Male?:??1935?? Subjective He is doing better. RN told me that he is much clear. To her, he has not been agitated. Sleep at night time, she could not comment. His appetite is good.? Patient reports that he has pain in the left knee. He was happy that PT came this morning and worked with him this morning. He reports itchiness on his back. He had a bowel movement today. Aide came to clean him up. ?? No chest pain or breathing trouble. He knows the time, day, date, year, where he is, his address. He does not recall seeing me. Review of Systems Numb pain in the left knee. Itchiness on his back. No rash else where. BM today. Aide cleaned him?? up today. No nausea or vomiting. No chest pain or SOB. No abdominal pain. No headache or lightheadedness. Objective Vitals & Measurements T:??97.5?F?? TMIN:??97.5?F?? TMAX:??97.9?F?? HR:??63??(Peripheral)?? RR:??18?? BP:??147/73?? SpO2:??95%?? Physical Exam Constitutional: not in acute distress. No pallor. No icterus. Lungs: CTA. CVS: regular heart sounds, no murmur. Abdomen: obese, soft, nontender, normal bowel sounds. Back: There is some excoriations from scratching. No other rash noted. No pressure ulcers noted. Primafit and external catheter noted. Draining light yellow urine. Left leg in a brace. Swelling has improved from 4 days ago. Can move his feet bilaterally. Mood: pleasant. He becomes sarcastic and defensive when talking about his HCP and code status; however, he confirmed both with me. Later he apologized for giving me a hard time. ?? Lab Results Test Name Test Result Date/Time Glucose, POC 138 mg/dL 09/11/2023 17:16 EST Glucose, POC 106 mg/dL 09/11/2023 12:21 EST Glucose, POC 103 mg/dL 09/11/2023 08:38 EST Glucose, POC 119 mg/dL 09/10/2023 20:22 EDT Glucose, POC 115 mg/dL 09/10/2023 17:16 EDT Barbiturate Screen, Urine NONE DETECTED 09/11/2023 14:48 EST Cannabinoid Screen, Urine NONE DETECTED 09/11/2023 14:48 EST Cocaine Metabolite Screen, Urine NONE DETECTED 09/11/2023 14:48 EST Methadone Screen, Urine NONE DETECTED 09/11/2023 14:48 EST Benzodiazepine Screen, Urine NONE DETECTED 09/11/2023 14:48 EST Amphetamine Screen, Urine NONE DETECTED 09/11/2023 14:48 EST Opiate Screen, Urine NONE DETECTED 09/11/2023 14:48 EST Oxycodone Screen, Urine NONE DETECTED 09/11/2023 14:48 EST Buprenorphine, Urine Random NONE DETECTED 09/11/2023 14:48 EST Fentanyl Screen, Urine Result NONE DETECTED 09/11/2023 14:48 EST Appear/Color, Urine YELLOW 09/11/2023 14:48 EST Specific [place], Urine 1.038 09/11/2023 14:48 EST pH, Urine 5.5 09/11/2023 14:48 EST Albumin, Urine 1+ 09/11/2023 14:48 EST Glucose, Urine NEGATIVE 09/11/2023 14:48 EST Ketones, Urine TRACE 09/11/2023 14:48 EST Bilirubin, Urine 1+ 09/11/2023 14:48 EST Hemoglobin, Urine 1+ 09/11/2023 14:48 EST Nitrite, Urine NEGATIVE 09/11/2023 14:48 EST Leukocyte, Urine NEGATIVE 09/11/2023 14:48 EST Urobilinogen 2 mg/dL 09/11/2023 14:48 EST WBC's, Urine 4 /HPF 09/11/2023 14:48 EST RBC's, Urine 18 /HPF 09/11/2023 14:48 EST Mucus SLIGHT 09/11/2023 14:48 EST Hold Urine Culture Testing available 48 hours from time of collection. 09/11/2023 14:48 EST Assessment/Plan Impression 88-year-old male with a past medical history of left bundle branch blockage, CAD, s/p CABG, mitral valve stenosis, hypertension, hematuria, bladder cancer, elevated PSA, BPH, hyperlipidemia, type 2 diabetes mellitus, osteoarthritis, anxiety, depression who presented to ED via EMS after unwitnessed fall. ??Imaging was revealed??patella fracture on the left side.?? Seen by orthopedics and recommended immobilization followed by outpatient follow-up.?? This admission complicated by delirium. Delirium improving. He completed a HCP form on 09/10/23. ?? Geriatrics consult requested for delirium. ?? MIND #Acute Metabolic encephalopathy / Acute Hyperactive Delirium / At risk for delirium - likely multifactorial due to - age, change in environment,??underlying cognitive impairment notedin the last 6 months,??hearing impairment,??possible vision impairment,??uncontrolled pain,??underlying mood disorder,??loneliness,??polypharmacy, Multi-morbidity, reversal of sleep cycle,??benzodiazepine withdrawal, and alcohol withdrawal. - Please try non-pharmacological interventions first for delirium: - frequent reorientation/redirection/reassurance, encourage friend visits/calls - adequate control of pain - monitor for urinary retention, constipation - sleep hygiene (bright light in day, dim at night, limit VS checks/interruptions at nighttime) - encourage oral hydration and nutrition - window side bed if possible - engage during the daytime, so patient sleeps more at night - out of bed to chair during the daytime, ambulate TID with assistance - 1:1 sitter if needed -??please avoid restraints as they worsen delirium - If concerned about patient's or others' safety due to patient's behaviors:??Avoid QTc prolonging medications. ?-At baseline, he was taking 1 mg alternating with 0.5 mg??every other day??taper??started by??PCP. He is currently receiving??lorazepam 0.25 mg daily.??Should continue with taper 25% drop each week and??consider stopping it each week. ? -Manage pain. ?-Most recent QTC:??535 ms on??09/08/2023 -??Please avoid antihistamines, anticholinergics -??UA looks abnormal, but no evidence of infection. ?? #Cognitive Impairment/ Dementia with behavioral disturbance -He has been very forgetful??in the last??6 months according to his neighbor, Josefina.?? He has also??lost??items like license and keys.?? He has difficulty??keeping track of time??and appointments.?? He also has??difficulty learning new information.?He has word finding difficulty.?? He needs help with??most of his IADLs.?? He still drives??without any accidents.?? He has firearms in his house.?? He lives alone??but depends on his neighbors to help him out??with his groceries,??complex medication regimen??like??benzodiazepine tapers,??transportation to doctors appointments. ??He can still manage??short drives. ??According to??Josefina,??he is hesitant to do anything financially??and is very secretive. 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 (This will need further clarification and evaluation). 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 There is also global atrophy noted and mesial temporal atrophy.?? CT of the head doneon 12/12/2022 for head trauma showed focal lacunar infarcts in the anterior limbs of the internal capsule bilaterally and in the external capsule on the left, periventricular white matter changes also n oted. 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 -Confounders:??Multi morbidity,??mood disorder,??poor sleep hygiene,??chronic benzodiazepine use,??vascular risk factors,??polypharmacy, hearing impairment. -Safety concerns as noted above. -Further evaluation once he is back to his baseline (ideally outpatient). ??Unable to??evaluate this today. He still not in a ideal place to have cognitive evaluation. It can also be skewed by acute hospitalization and acute delirium. - Obtain folic acid levels. TSH normal 3.19 in Dec 2022. Vitamin B12 is low normal 432. -Should continue with??benzodiazepine taper outpatient (as noted above). -He will need??outpatient??follow-up with memory assessment clinic??or collection supervisor??for his cognitive impairment. ?? #Depression?? -We will need to evaluate this??once delirium??resolves. -He has multiple??medication allergies??including SSRIs??and SNRIs.?? However, according to??patient's??neighbor,??patient never tries these medications??after reading??the medication information leaflets.?? He then??communicates with his??PCP??reporting allergies??to each medication.?? This shouldbe??checked with the patient once he become??more clear. ?? MEDICATION #Polypharmacy/Medication management -Continue with acetaminophen 975 milligram, consider switching it to twice daily instead of every 12 hours.?? Not more than 2 g a day given that his bilirubin is elevated suggesting hepatocellular disease and he drinks alcohol daily. -Continue with allopurinol, make sure that it is renally dosed.?? Home dose 200 mg daily typically taken 100 mg twice a day per patient. -Continue with amlodipine 5 mg daily. -Continue with apixaban 2.5 mg twice daily. -Continue with aspirin 81 mg daily. -Continue with atorvastatin 40 mg daily at bedtime. -Continue with vitamin D3 2000 international unit daily.?? Consider??obtaining vitamin D??25-hydroxy levels and if more than 50, could consider lowering the dose down. -Consider discontinuing docusate as it does not really work??for opiate-induced??constipation. -Continue finasteride 5 mg daily. -Continue folic acid 1 mg daily due to chronic alcohol use. -Continue with furosemide 20 mg daily. -Continue with multivitamin 1 tablet daily. -Continue pantoprazole 20 mg daily.?? Please reevaluate the need for PPI long- term.?? He has been taking omeprazole 20 mg daily outpatient. -Continue with MiraLAX 17 g 2 times a day -Continue pyridoxine 50 mg daily -Continue senna 8.6 milligrams 2 tablets daily for opiate-induced constipation. -Continue tamsulosin 0.4 mg daily at bedtime -Continue thiamine 100 mg twice daily -Patient currently not on PRN pain medication,??melatonin 3 mg as needed, senna/simethicone as needed. MOBILITY #At risk of falls / Recurrent Falls, physical deconditioning Check orthostatic BP Out of bed to chair during day Mobilize as much as possible/Ambulate TID with assistance??as tolerated and as recommended by orthopedic PT consult: Patient seen by physical therapy in the ED and needed moderate assist for supine to sitand was able to stand up to walker briefly with moderate assist limited by pain.?? Recommended rehab at discharge. ?? MULTICOMPLEXICITY #History of coronary artery disease, status post CABG, hypertension -Followed by construction economist outpatient -On aspirin and statin -On amlodipine for blood pressure control ?? #History of lacunar cerebrovascular accident MRI in 2020 -Continue blood pressure control -On aspirin and statin ?? #Atrial fibrillation -No rate control medications -On anticoagulation with DOAC ?? #Status post pacemaker -Followed by construction economist ?? #Prolonged QTc -Repeat EKG, avoid medications that would prolong QTc ?? 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 -Not on any antidiabetic medications -Monitor [id number] blood sugars ?? #Benign prostatic hyperplasia -Followed by urologist and on finasteride and tamsulosin Stable per previous PCP note 23 ?? #Left elbow??ecchymosis and pain, history of??recent fall 2 weeks ago??with bleeding from the left elbow X-ray elbow was negative for fracture. ?? #Coughing while eating CXR - pulmary edema with trace pleural effusion. - Obtain ELECTRIC CUTTER OPERATOR consult. ?? MATTER MOST #Advanced Directives Health Care Proxy: Healthcare proxy form completed on 09/10/2023- Josefina BEN. Patient confirms this again. He reports that he trusts Josefina more than even himself. Code Status: MOLST ??from 2016 shows full code and no dialysis.?? Use intubation and ventilation/noninvasive ventilation short-term only, use artificial nutrition and artificial hydration short-term only. He confirms full code. He did not want long-term ventilation. If there is no hope put me in the box and don't invite my children. If they are not here for me now do not invite them for anything. ?? #Discharge Planning - Please f/u case management for placement and arranging services.? Thank you for referral, please page Geriatrics Inpatient Consult Service if we can provide further assistance in patient care. ? Part of my??recommendation and plan was discussed with??Dr. Bower. ?? I am not??available??tomorrow, but I will??sign out to??the inpatient consult team??in case if there is any questions??or concerns.?? Total Time Spent I personally spent a total of??80 minutes, including both [id number] and bmi-hznc-wq-face time onthe date of the encounter, addressing the above diagnoses.?? 45 minutes spent with the??patient's??neighbor??and caregiver, Josefina, over the phone.?? Time spent on??reviewing records,??documentation, ??communicating with primary team??and nurses. Medications Inpatient acetaminophen 325 mg oral tablet, 975 mg, By Mouth, Every 8 hours allopurinol 100 mg oral tablet, 200 mg, By Mouth, Daily amLODIPine 5 mg oral tablet, 5 mg, By Mouth, Daily aspirin 81 mg oral tablet, chewable, 81 mg, By Mouth, Daily atorvastatin 40 mg oral tablet, 40 mg, By Mouth, Daily at bedtime Colace sodium 100 mg oral capsule, 100 mg= 1 capsule, By Mouth, 2 times a day Eliquis, 2.5 mg, By Mouth, 2 times a day finasteride 5 mg oral tablet, 5 mg, By Mouth, Daily Folic Acid Tablet, 1 mg, By Mouth, Daily furosemide 20 mg oral tablet, 20 mg, By Mouth, Daily HYDROmorphone 2 mg oral tablet, 2 mg, By Mouth, Once LORazepam 2 mg oral tablet, 0.25 mg, By Mouth, Daily at supper Maalox Plus Liquid, 30 mL, By Mouth, Every 8 hours, PRN Melatonin Tablet, 3 mg, By Mouth, Daily at bedtime MiraLax Powder, 17 Gm= 1 pack/packet, By Mouth, 2 times a day Multivitamin Tablet, 1 tablet, By Mouth, Daily NaCL 0.9% Flush, 3 mL, IV Push, Every 8 hours NaCL 0.9% Flush, 3 mL, IV Push, Every 8 hours, PRN pantoprazole 20 mg oral delayed release tablet, 20 mg, By Mouth, Daily Pyridoxine Tablet, 50 mg, By Mouth, Daily Robitussin DM Liquid, 10 mL, By Mouth, Every 4 hours, PRN Senna 8.6 mg oral tablet, 17.2 mg= 2 tablet, By Mouth, Daily Senna Tablet, 8.6 mg= 1 tablet, By Mouth, 2 times a day, PRN Simethicone Tablet, 80 mg, Chew, 3 times a day, PRN tamsulosin 0.4 mg oral capsule, 0.4 mg, By Mouth, Daily Thiamine Tablet, 100 mg, By Mouth, 2 times a day Vitamin D3 1000 intl units oral tablet, 2000 International_Units, By Mouth, Daily Home acetaminophen 500 mg oral tablet, 1000 mg= 2 tablet, By Mouth, Every 8 hours, PRN allopurinol 100 mg oral tablet, 2 tablet, By Mouth, Daily, 5 refills amLODIPine 5 mg oral tablet, 1 tablet, By Mouth, Daily, 1 refills aspirin 81 mg oral tablet, 81 mg= 1 tablet, By Mouth, Daily, 3 refills atorvastatin 40 mg oral tablet, 1 tablet, By Mouth, Daily at bedtime Eliquis 2.5 mg oral tablet, 1 tablet, By Mouth, 2 times a day, 9 refills finasteride 5 mg oral tablet furosemide 20 mg oral tablet, See Instructions, 2 refills LORazepam 0.5 mg oral tablet, See Instructions, 1 refills LORazepam 1 mg oral tablet, 1 mg= 1 tablet, By Mouth, Daily at bedtime, PRN, 1 refills magnesium oxide 400 mg oral tablet, 1 tablet, By Mouth, Daily nystatin topical 235740 u/gm powder, 1 application, Topically, 2 times a day, 1 refills omeprazole 20 mg oral enteric coated capsule, 1 capsule, By Mouth, Daily, 1 refills tamsulosin 0.4 mg oral capsule, 1 capsule, By Mouth, Daily at bedtime Vitamin B1 100 mg oral tablet, 1 tablet, By Mouth, Daily Vitamin D3 2000 intl units oral capsule, 2000 International_Units= 1 capsule, By Mouth, Daily, 11 refills Consult note * Alvaro Peñaloza MD: MODIFY Alvaro Peñaloza MD A: MODIFY, MODIFY Alvaro Peñaloza MD A: MODIFY, MODIFY Alvaro Peñaloza MD A: MODIFY, MODIFY Alvaro Peñaloza MD A: MODIFY, MODIFY Alvaro Peñaloza MD A: MODIFY, MODIFY Alvaro Peñaloza MD A: MODIFY, PERFORM Alvaro Peñaloza MD A: PERFORM, MODIFY Alvaro Peñaloza MD: MODIFY, MODIFY Kitty Graham MD: MODIFY Event Display: Consultation Note Authored Date: Patient: ??STEVEN SWAN ? Age:??88 Years?Sex:??Male?:??1935?? Chief Complaint coming from home, unwitnessed fall this afternoon, on ground for 2+hrs, unknown LOC, on eliquis, hxpacemaker, L knee swelling, c/o L knee/groin/back pain Reason for Consultation Delirium History of Present Illness Reason for Consult: Delirium Referring Physician: Dr. Herrera Source of Information/reliability:??chart review, patient (not reliable),??caregiver/neighbor Josefina ?? History of Present Illness: _ 88-year-old male with a past medical history of left bundle branch blockage, CAD, s/p CABG, mitral valve stenosis, hypertension, hematuria, bladder cancer, elevated PSA, BPH, hyperlipidemia, type 2 diabetes mellitus, osteoarthritis, anxiety, depression who presented to ED via EMS after unwitnessed fall. Per ED note, patient reported that he was in the kitchen when he tripped and fell.??Patient noted??of significant left knee swelling and pain, as well as hip and low back discomfort after the fall.?? He denies any preceding chest pain, shortness of breath before the fall.?? He has no neck pain, no headache, no dizziness, or any other symptoms at this time. He also denied head trauma. EMS noted patient to be very agitated. No meds given en route to ED. In ED, patient appeared to be sundowning and concerning for delirium. He was given 2 x 1 mg hydromorphone IV, ibuprofen 600 mg p.o., lidocaine topical 5% patch, morphine 4 mg IV, acetaminophen 650 mgp.o., ibuprofen 200 mg p.o., morphine 15 mg p.o. x3 (between 09/06-09/07).?? This afternoon he received Haldol 2 mg IV at 3:49 PM he was also given oxycodone 2.5 mg at 10 AM.?? Imaging showed left patellar fracture. Otherwise, CT head, neck, pelvis and spine was reassuring with no bony abnormalitiesexcept degenerative changes. Orthopedic trauma surgery service states that the patient can be placed in a knee immobilizer, weightbearing as tolerated, and follow-up with Dr. Laboy outpatient.?? States that there is no acute surgical intervention needed at this time. Patient's neighbor (Josefina) who is his primary caregiver over the last 7 years said??she last saw him 3 days prior at which time he was fine. At baseline, the patient is normally able to carry on a conversation, mows his lawn and care for himself??(see below for more information). ?? Encounter with patient at bedside: He was lying in his bed and he just came to the floor??from the ED.?? He was uncomfortable??and slightly restless??in the bed??wanting to?? get out of here. ?He was very hard of hearing??both sides. ??He was calm down. ??He was confused??and knew that he wasin the hospital but did not know??what hospital and??the town.?? He did not??know the date??or the y ear.?? He could not tell the time despite looking at the clock??right in front of him.?? He could not read the clock.?? He could not answer many of the simple questions.?? He told me that??he would like doctors to call??Josefina. ??According to him, Josefina is his nurse.?? (Josefina told us that??lisa been a neighbor for a long time and??this came to know him??several years ago and??started taking care of him??for about 7 years now).?? When asked him about his children he said he has no children.?? He told his that he has itching in his back??and was trying to rub his back against??the mattress. ??He felt better once I helped him??rub his back??for him.?? He complained of pain in his left k nee and??towards the end of our interview he was perseverating on the pain.?? He also reported painon his left elbow??and??left mid back.?? He was thirsty and he drank??a few sips of water.?? The last sip of water he drank a little bit fast and??started coughing.?? He cleared up pretty quickly and??was not in any acute distress??nor was he short of breath.?? He repeated most of the questions that we asked??and then??stated??many at times that?? I do not know??and these are difficult questions.?? How can I answered his questions? ?? He does not know why he is in the hospital??and he does not know??what??is the cause for his pain, despite explaining it to him??several times.?? (Josefina also mentioned that she tried to??tell him??several times the reason for??him being in the hospital and??what happened; however, he would keep asking why he is here.)?During the conversation,??we got a call from??the kitchen??asking??what he wanted for dinner??and when he was told that??he was pot roast??he seemed to like that???. ??He states that he enjoys sweets. ??Towards end of the conversation he perseverated with pain. ??He became calm when he was told that I will get the nurse to??give him his pain medication.?? When I came back after he got his pain medication??he was found to be??sleeping comfortably??and I did not wake him up. ?? Home medications: (Obtained from external treatment history) -Lorazepam taper 1 mg alternating with 0.5 mg -Magnesium oxide 400 mg 1 tablet daily -Thiamine 100 mg 1 tablet every day -Atorvastatin 40 mg 1 tablet daily at bedtime -Finasteride 5 mg 1 tablet daily -Furosemide 20 mg daily -Tamsulosin 0.4 mg daily at bedtime -Allopurinol 100 mg 2 tablets daily -Amlodipine 5 mg 1 tablet daily -Omeprazole 20 mg 1 tablet daily -Apixaban 2.5 mg 1 tablet twice a day. ?? Sertraline 50 mg last prescribed on 09/08/2022 and trazodone last filled on 09/23/2021 25 mg ?? Baseline Cognitive Function: There has been a decline in his cognition??in the last 6 months according to Josefina.?? There has been documentations??by his PCP as well as??behavioral health clinician??suggesting??cognitive impairment. ??This was never evaluated. ?? Memory Forgetting (eg: recent events, names/,appointments, paying bills): In the last 6 months, he has become more forgetful. He has forgotten his young. Josefina now has the keys to his car and house. More short-term??than long-term. Losing things: He has lost his license and keys. Repeating things (eg: stories, questions, statements): Not so much. Difficulty learning new information (eg: address, phone number, names, gadgets, using appliances): Yes. He can't even make a call from the phone Josefina brought him. He knows how to dial 911. Difficulty keeping track of time, place, or person: A little bit about his appointments. He uses a calender that does seem to help him. ?? Language Word finding difficulty:??Yes. Change in reading, writing, or conversation:: He does not read and watches television. He was golfer and loves golf and Tuesday football games. News. ?? Visuospatial ability Agnosia/Confusion, disorientation in unfamiliar surroundings: Very slightly. he can get to the place that he can get to driving. Getting lost in familiar places: No. ?? Executive function Difficulty planning, organizing, abstracting: Yes. Going on for a while. but worse dramatically. [place] aged a lot in the last few years. Ability to focus despite distractions: He has difficulty focusing. Judgement concerns (eg: problems with decision making, bad financial decisions, problems with thinking): He would be hesitant to do anything financially. He was putting a $[id number]/- in his car. He stopped doing that about 8 months ago. He was secretive about that. ??According to Josefina, he does nottrust anybody especially his children. ??The house is in??a trust. He has made a??living will and they are going to donations to Parkinson's, pancreatic cancer, breast cancer. He is very prejudiced and says things wrong time to wrong people. Insight concerns (eg: lack of awareness and understanding of the condition):?? He denied for the longest time that he had had bladder. He reads into too much. ??After his primary care for a long timeretired he was given??a new PA as??a primary care; however,??he has no??regards for the PA and then??the practice gave him a new MD. ?? Behavioral changes: (unable to get this history from Josefina, will discuss??during??this hospital stay) -Apathy or loss of interest in activities that the patient previously enjoyed: _ +Insensitive to others: _ -Resisting care or poor self-care (eg: resistance to bathing, dressing, feeding, other routines): _ Hoarding: _ +Paranoia (eg: stolen or plotting against the patient): _ +Delusions: _ +Hallucinations (visual or auditory or tactile): _ +Increase in irritability or anxiety: _ -Depression: _ +Rapid swinging mood for no apparent reason: _ +Hyperactivity, mood lability, disinhibition, and grandiose beliefs: _ +Impulsive, swearing, sexual advances, or general social inappropriateness: _ +Vocal aggression (eg: yelling, verbal outbursts): _ +Physical aggression (eg: hitting, scratching pushing): _ +Restless motor activties (eg: pacing, rocking, picking): _ ?? Duration/course of behavioral changes: _ Triggers for behavioral changes (eg: change in caregiving, caregiver stress, roommate, life stressors, med changes, change in chronic medical conditions): _ ?? Safety concerns: Burning while cooking? ??In the past??yes.?? Stove??has been unplugged. Wandering??? None Accidents while driving? ??No Concerns for elder abuse and financial exploitation? ??No.?? Patient was afraid of??someone stealing money from him so he used to put??$100,000??in his??car for a long time??until 8 months ago. Firearms present in home? ??Yes.?? Josefina??and her son??are going tomorrow to??remove that from the house. Living alone? ??Yes. ? Mood:??He feels lonely and depressed.?Josie reports that patient can get upset when??she cannot drop everything??that she did??and do what??he wants her to do.?? Josefina??reports that??Steven in the past had told her??that??if he ever??goes to a detention, he has loaded gun in his house and would blow his brains off.?? Josefina is going with her son tomorrow??to look at the guns and ammunition??and remove it from his house. ? Patient enjoys: He enjoys watching sports on television - he was a golfer (he likes watching golf),he would watch Tuesday night football games,??he likes [employer].?? He does not go out as much.?? He haschronic low back pain. ? Balance/Gait/Falls: He has had 4 falls in the past 1 year. 2 weeks ago he had a fall (tripped and fell) and cut his left arm. ? Nutrition (weight gain or loss, trouble chewing or swallowing, access to food):??He does not eat well. Eats cider donut and 1/2 cup coffee for breakfast, piece of fruit or tomato for lunch, and cereal/fruit for dinner. He coughs and chokes a lot per Josefina. ? Elimination (continence, constipation):??Urinary incontinence occasionally wears diaper. He had bladder cancer and BPH. He denies having bladder cancer. He can go 18-20 hours without urinating. He has constipation and occasional diarrhea. No bowel incontinence. ? Sleep: horrible he was on 2 mg of lorazepam at bedtime. About 1.5 yrs ago his previous PCP cut the dose down to 1 mg. Josefina reports he does not sleep at all. But he naps during the day several time. He tends to exaggerate a little bit. Josefina reports that Steven tends to like little sympathy. ? Hearing/Vision: horrible hearing. Never used hearing aids. He had cataract surgery 2-3 years ago.Josefina thinks the surgery messed up one of his eyes. Does not use reading glasses. He uses tear drops regularly. Especially, right eye gives him trouble. ? Functional Status Independent = I, needs Assistance = A, Dependent = D ?? ADL:?? _?Transfers: Typically he walks unattended, but uses a walker at night in his house occasionally. He never uses cane.? Bathing:??He does it independently. However, Josefina is not sure if he does it frequently. Grooming:??Independent. ?? Dressing:??Independent. No inappropriate dressing. Feeding:??Independent. Toileting:??Independent. He uses urinal at night time. ?? IADL:_?Housework:??He needs helps with cleaning, laundry and vacuuming. He does not use his washer anymore (which is in the cellar) and instead he washes clothes himself. Josefina sometimes help him wash his sheets. He mows his lawn. 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 Medications:??He gets prefilled medications. He fills pill boxes and takes it regularly. Occasionally he can miss his medications. Many of his allergies are not really allergies per Josefina. He just does not take them after reading the print outs and he would tell the doctors that he has allergy toit. Finances: Most are paid automatically from his social security check. No family member helps him with any financial decisions. He used to carry $100,000/- in his car (thinking that it is safer there)up until 8 months ago, which he stopped doing after conversations with Josefina. Shopping:??Josefina and his other neighbor (couple) will buy him his groceries. Meal preparation:??He does not cook much. Only thing he makes is chicken soup.??He??once had a stove accident, so the stove has been turned off and he only uses??the microwave now. ??Josefina would bring him food. He gets MOW but does not eat that much of it. Transportation: He drives his car to nearby places - bank, which is 1 mile from his house, and grocery??store??for a donut (3 miles from his house). No accidents or fender benders reported by Josefina. Josefina drives him to the doctors appointment. ?? Assistance:? Primary caregiver: Josefina has been taking care of his house needs for the past 7 years, but more so in the past 3 years. He gets [facility] delivering meals on wheels for him. He had for a short time a cleaning lady for 2 months. She was Bhutanese speaking. He reported to Josefina that she just sat on the bottom of the basement and played on her phone and that she broke his washer. Josefina reports that Steven can be rough with his language. ? Social history: Schooling: Completed high school. He went to horticulture school. 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 Smoked cigarettes for several years but quit a few years ago. Used to drink 2 drinks (rum) daily but reduced it to 1 drink a night. Never used drugs or marijuana. He never was in the . He used to [place] and has hunted [employer] and did lot of fishing. He has a gun at home. ?? Family history: 1 sister - alive, 2 years younger. Lives in [place]. They call each other once or twice a year on their birthdays. Josefina did communicate with them regarding current admission. His niece (sister's daughter) is the executive of his estate. 3 children - 1 daughter who has not spoken with him for about 5 yrs, 1 son who has not spoken with him for about 2.5 yrs, and 1 daughter (Shayna) who has not spoken with him about 2 years. Review of Systems ROS as per HPI/Subjective. Physical Exam Vitals & Measurements T:??98.7?F?? TMIN:??97.7?F?? TMAX:??99.0?F?? HR:??77??(Peripheral)?? RR:??18?? BP:??125/84?? SpO2:??95%?? CAM (positive means 1 and 2 + either 3 or 4) 1) Acute Onset or Fluctuating Course - ??Is there evidence of an acute change in mental status fromthe patient???s baseline? Did the (abnormal) behavior fluctuate during the day, that is, tend to come and go, or increase and decrease in severity? YES 2) Inattention - Did the patient have difficulty focusing attention, for example, being easily distractible, or having difficulty keeping track of what was being said? YES 3) Disorganized thinking - ??Was the patient???s thinking disorganized or incoherent, such as rambling or irrelevant conversation, unclear or illogical flow of ideas, or unpredictable switching from subject to subject? YES 4) Altered Level of consciousness - Overall, how would you rate this patient???s level of consciousness? (alert [normal]) ?? Gen - alert NAD,??alert??but??not oriented to??time, place,??person.?? He is oriented to self.?? Heknows that he is in the hospital but does not know??what hospital. ??He does not know why he came to the hospital??despite explaining to him. HEENT - anicteric sclera, pseudophakia noted bilaterally, no pallor.?? Dentures on the top.?? Did not have an otoscope to look in his ears.?? He is very hard of hearing. Cardiovascular - RRR w/o murmur/gallop Respiratory - CTA w/o wheezing/crackles; no use of accessory muscles Chest wall:??Ecchymosis noted??on the left??mid back??on the posterior axillary line??over his ribs, there is mild tenderness??noted??in that area. Gastrointestinal - soft, obese,??NT/ND, BS+ Urinary:??No external catheters or indwelling catheter noted.?? He had a diaper on. Ext - no edema LE B/L; no swelling/tenderness in the knees B/L. ??There is swelling around his??left knee. ??He has a brace/immobilizer in place??on his left lower extremity.?? He can wiggle his toes??and move his feet??bilaterally.?? Strength in both upper extremities normal.?? No tremors noted.??Normal tone.?? Left elbow and forearm ecchymosis noted. ??Tenderness around the left elbow noted.??Range of motion with a little bit of pain??at the left elbow. Neuro - moving all extremities.?? Skin -ecchymosis noted on the left upper extremity??and as noted above. ?? MENTAL STATUS EXAM ?? Appearance: well groomed, overweight, appears stated age Attitude: pleasant, cooperative, distracted, guarded at time Motor Activity: calm, ??restless when he is in pain and tries to rub his back when he feels itchy?? Mood: Unable to tell us. Affect: Initially anxious and irritable but??calm down??after conversation. Speech: clear, appropriate inflection, good articulation, normal rate, normal tone Memory: Unable to assess today.?? Does not recall??some of the things??that were discussed a few minutes ago. Orientation: Oriented to self??only. Perception:??No delusions, paranoia, or other abnormal thought content elicited. Thought process: disorganized, perseverated on pain towards the??end??of the conversation. Thought content:??Initially thought was about why he is in the hospital, later??thought was mostly??about??pain in his left knee Insight: Impaired Judgement: Impaired Assessment/Plan Impression 88-year-old male with a past medical history of left bundle branch blockage, CAD, s/p CABG, mitral valve stenosis, hypertension, hematuria, bladder cancer, elevated PSA, BPH, hyperlipidemia, type 2 diabetes mellitus, osteoarthritis, anxiety, depression who presented to ED via EMS after unwitnessed fall. ??Imaging was revealed??patella fracture on the left side.?? Seen by orthopedics and recommended immobilization followed by outpatient follow-up.?? This admission complicated by delirium. ?? Geriatrics consult requested for delirium. ?? MIND #Acute Metabolic encephalopathy / Acute Hyperactive Delirium / At risk for delirium - likely multifactorial due to - age, change in environment,??underlying cognitive impairment notedin the last 6 months,??hearing impairment,??possible vision impairment,??uncontrolled pain,??mood di sorder,??loneliness,??polypharmacy, Multi morbidity, reversal of sleep cycle,??benzodiazepine withdrawal, and alcohol withdrawal. - Please try non-pharmacological interventions first for delirium: - frequent reorientation/redirection/reassurance, encourage friend visits/calls - adequate control of pain - monitor for urinary retention, constipation - sleep hygiene (bright light in day, dim at night, limit VS checks/interruptions at nighttime) - encourage oral hydration and nutrition - window side bed if possible - engage during the daytime, so patient sleeps more at night - out of bed to chair during the daytime, ambulate TID with assistance - 1:1 sitter if needed -??please avoid restraints as they worsen delirium - If concerned about patient's or others' safety due to patient's behaviors:??Avoid QTc prolonging medications. ?-In his case he might benefit from??reintroducing benzodiazepine??(he has not had??benzodiazepines in the last 2 nights-09/06 and 09/07). ??I believe, he was taking 1 mg alternating with 0.5 mg??every other day??taper??started by??PCP.?? Please confirm with PCP tomorrow.??Place him on lorazepam 0.5 mg??po tonight. ? -He also??is a daily drinker??and he will need CIWA protocol. ? -Manage pain. ?-Most recent QTC:??534 ms on??09/06/2023 -??Please avoid antihistamines, anticholinergics - Obtain UA and??reflex culture as he has chronic urinary symptoms, patient unable to give a good history. ?? #Cognitive Impairment/ Dementia with behavioral disturbance -He has been very forgetful??in the last??6 months according to his neighbor, Josefina.?? He has also??lost??items like license and keys.?? He has difficulty??keeping track of time??and appointments.?? He also has??difficulty learning new information.?He has word finding difficulty.?? He needs help with??most of his IADLs.?? He still drives??without any accidents.?? He has firearms in his house.?? He lives alone??but depends on his neighbors to help him out??with his groceries,??complex medication regimen??like??benzodiazepine tapers,??transportation to doctors appointments. ??He can still manage??short drives. ??According to??Josefina,??he is hesitant to do anything financially??and is very secretive. 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 (This will need further clarification and evaluation). 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 There is also global atrophy noted and mesial temporal atrophy.?? CT of the head doneon 12/12/2022 for head trauma showed focal lacunar infarcts in the anterior limbs of the internal capsule bilaterally and in the external capsule on the left, periventricular white matter changes also n oted. 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 -Confounders:??Multi morbidity,??mood disorder,??poor sleep hygiene,??chronic benzodiazepine use,??vascular risk factors,??polypharmacy. -Safety concerns as noted above. -Further evaluation once he is back to his baseline. ??Unable to??evaluate when??patient has delirium. -Obtain??vitamin B12, folic acid levels. TSH normal 3.19 in Dec 2022. -Should continue with??benzodiazepine taper outpatient. -He will need??outpatient??follow-up with memory assessment clinic??or collection supervisor??for his cognitive impairment. ?? #Depression?? -We will need to evaluate this??once delirium??resolves. -He has multiple??medication allergies??including SSRIs??and SNRIs.?? However, according to??patient's??neighbor,??patient never tries these medications??after reading??the medication information leaflets.?? He then??communicates with his??PCP??reporting allergies??to each medication.?? This shouldbe??checked with the patient once he become??more clear. -He certainly does not express??any??overt suicidal ideation.?? However, in the past, Josefina reported that??he did mention that he will blow his brains??using his loaded gun??if he were to go to??detention.?? Josefina is going to remove??the gun from his house with the help of her son??tomorrow. ?? MEDICATION #Polypharmacy/Medication management -Continue with acetaminophen 975 milligram, consider switching it to twice daily instead of every 12 hours.?? Not more than 2 g a day given that his bilirubin is elevated suggesting hepatocellular disease and he drinks alcohol daily. -Continue with allopurinol, make sure that it is renally dosed.?? Home dose 200 mg daily. -Continue with amlodipine 5 mg daily. -Continue with apixaban 2.5 mg twice daily. -Continue with aspirin 81 mg daily. -Continue with atorvastatin 40 mg daily at bedtime. -Continue with vitamin D3 2000 international unit daily.?? Consider??obtaining vitamin D??25-hydroxy levels and if more than 50, could consider lowering the dose down. -Consider discontinuing docusate as it does not really work??for opiate-induced??constipation. -Continue finasteride 5 mg daily. -Continue folic acid 1 mg daily due to chronic alcohol use. -Continue with furosemide 20 mg daily. -Continue with multivitamin 1 tablet daily. -Continue pantoprazole 20 mg daily.?? Please reevaluate the need for PPI long- term.?? He has been taking omeprazole 20 mg daily outpatient. -Continue with MiraLAX 17 g 2 times a day (patient has been refusing) -Continue pyridoxine 50 mg daily -Continue senna 8.6 milligrams 2 tablets daily for opiate-induced constipation. -Continue tamsulosin 0.4 mg daily. -Continue thiamine 100 mg twice daily -Patient currently on hydromorphone 1 mg IV every 6 hours as needed for severe pain, lorazepam CIWAprotocol, melatonin 3 mg as needed, senna/simethicone as needed. MOBILITY #At risk of falls / Recurrent Falls, physical deconditioning Check orthostatic BP Out of bed to chair during day Mobilize as much as possible/Ambulate TID with assistance??as tolerated and as recommended by orthopedic PT consult: Patient seen by physical therapy in the ED and needed moderate assist for supine to sitand was able to stand up to walker briefly with moderate assist limited by pain.?? Recommended rehab at discharge. ?? MULTICOMPLEXICITY #History of coronary artery disease, status post CABG, hypertension -Followed by construction economist outpatient -On aspirin and statin -On amlodipine for blood pressure control ?? #History of lacunar cerebrovascular accident MRI in 2020 -Continue blood pressure control -On aspirin and statin ?? #Atrial fibrillation -No rate control medications -On anticoagulation with DOAC ?? #Status post pacemaker -Followed by construction economist ?? #Prolonged QTc -Repeat EKG, avoid medications that would prolong QTc ?? 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 -Not on any antidiabetic medications -Monitor gytum-wd-gokb blood sugars ?? #Benign prostatic hyperplasia -Followed by urologist and on finasteride and tamsulosin Stable per previous PCP note 23 ?? #Left elbow??ecchymosis and pain, history of??recent fall 2 weeks ago??with bleeding from the left elbow -Obtain x-ray of the left elbow ?? #Left??mid chest wall pain -Likely??rib fracture or contusion.?? Consider managing it with??topical lidocaine. ?? #Cough while eating at home, per history CXR - pulmary edema with trace pleural effusion. - Obtain ELECTRIC CUTTER OPERATOR consult. ?? MATTER MOST #Advanced Directives Health Care Proxy: Healthcare proxy form completed on 12/07/2019 - Dory L. [place], [place] Code Status: MOLST ??from 2016 shows full code and no dialysis.?? Use intubation and ventilation/noninvasive ventilation short-term only, use artificial nutrition and artificial hydration short-term only. ?? Further discussion with the patient on healthcare proxy??and CODE STATUS once patient??is clear.?? Patient right now??is unable to??comprehend??and process??any information due to acute??delirium.?? His capacity should be assessed tomorrow.?? When I discussed with Josefina,??if patient names??greg??a healthcare proxy she is willing to??take that role.?? According to Ojsefina,??all 3 of Mandy??have not been in touch with him??for a while??(see HPI).?? They did not even call him??for Father's Day or??his birthdays.?? Patient told me that he has no children??today.?? Josie has been assisting him with a lot of care. ??This was confirmed??by the upper caser from??his PCPs office.?? Also,??per PCP's note??she usually accompanies??him for his appointments.?? Josefina herself lost??her son??from pancreatic cancer??a year or so ago.?? She told me that??she was unable to take a??the role of healthcare proxy for??Mr. Swan??at that time.?? However, she is willing??to take that on if??Mr. Swan designates her to be??his??healthcare proxy. ? #Discharge Planning - Please f/u case management for placement and arranging services.? Thank you for referral, please page Geriatrics Inpatient Consult Service if we can provide further assistance in patient care. ? Part of my??recommendation and plan was discussed with??Dr. Herrera. ?? I am not??available??tomorrow, but I will??sign out to??the inpatient consult team??in case if there is any questions??or concerns. Total Time Spent I personally spent a total of??180 minutes, including both weoh-pn-asif and bzm-zhpx-pj-face time on the date of the encounter, addressing the above diagnoses.?? 45 minutes spent with the??patient's??neighbor??and caregiver, Josefina, over the phone.?? Time spent on??reviewing records,??documentation ,??communicating with primary team??and nurses. Problem List/Past Medical History Ongoing Adjustment disorder with depressed mood Anxiety Aortic valve prosthesis [id number] TAVR 2018 Arteriosclerotic heart disease (ASHD) cabg 2003;x1 Benign Essential Hypertension Benign essential microscopic hematuria Bladder cancer 2010/refuses f/u cyysto 2021 advised re abn cytology BPH (benign prostatic hyperplasia) Breast pain, left refer breast center Cardiac pacemaker Carpal tunnel syndrome Cervical disc disorder Chronic anticoagulation Chronic back pain spine center 2021 Chronic diarrhea episodic normal IGA TTG 2014 Chronic gout Decreased urine output Frequent PVCs GERD H/O endarterectomy RT 2010,left 2020 DEC History of lacunar cerebrovascular accident MRI 2020 Hx of CABG x 1;2002 Hyperlipidemia Hypomagnesemia Insomnia Knee osteoarthritis LBBB (left bundle branch block) Left inguinal hernia Mass of left parotid gland 1.[address] 2020 dec Memory loss noemal b12,thiamine tsh Mild major depression, single episode Mild mitral insufficiency Neck pain Nephrolithiasis PAF (paroxysmal atrial fibrillation) [id number] 6 Pituitary microadenoma Restless legs syndrome (RLS) 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 immune referred Tricuspid insufficiency Trochanteric bursitis of right hip Type 2 diabetes mellitus with peripheral angiopathy Type 2 diabetes with nephropathy Weakness Medications Inpatient acetaminophen 325 mg oral tablet, 975 mg, By Mouth, Every 12 hours allopurinol 100 mg oral tablet, 200 mg, By Mouth, Daily amLODIPine 5 mg oral tablet, 5 mg, By Mouth, Daily aspirin 81 mg oral tablet, chewable, 81 mg, By Mouth, Daily Ativan 0.5 mg oral tablet, 0.5 mg, By Mouth, 2 times a day, PRN atorvastatin 40 mg oral tablet, 40 mg, By Mouth, Daily at bedtime Colace sodium 100 mg oral capsule, 100 mg= 1 capsule, By Mouth, 2 times a day Eliquis, 2.5 mg, By Mouth, 2 times a day finasteride 5 mg oral tablet, 5 mg, By Mouth, Daily Folic Acid Tablet, 1 mg, By Mouth, Daily furosemide 20 mg oral tablet, 20 mg, By Mouth, Daily Maalox Plus Liquid, 30 mL, By Mouth, Every 8 hours, PRN Melatonin Tablet, 3 mg, By Mouth, Daily at bedtime, PRN MiraLax Powder, 17 Gm= 1 pack/packet, By Mouth, 2 times a day Multivitamin Tablet, 1 tablet, By Mouth, Daily NaCL 0.9% Flush, 3 mL, IV Push, Every 8 hours NaCL 0.9% Flush, 3 mL, IV Push, Every 8 hours, PRN oxyCODONE 5 mg oral tablet, 2.5 mg, By Mouth, Every 6 hours, PRN pantoprazole 20 mg oral delayed release tablet, 20 mg, By Mouth, Daily Pyridoxine Tablet, 50 mg, By Mouth, Daily Robitussin DM Liquid, 10 mL, By Mouth, Every 4 hours, PRN Senna 8.6 mg oral tablet, 17.2 mg= 2 tablet, By Mouth, Daily Senna Tablet, 8.6 mg= 1 tablet, By Mouth, 2 times a day, PRN Simethicone Tablet, 80 mg, Chew, 3 times a day, PRN tamsulosin 0.4 mg oral capsule, 0.4 mg, By Mouth, Daily Thiamine Tablet, 100 mg, By Mouth, 2 times a day Vitamin D3 1000 intl units oral tablet, 2000 International_Units, By Mouth, Daily Home acetaminophen 500 mg oral tablet, 1000 mg= 2 tablet, By Mouth, Every 8 hours, PRN allopurinol 100 mg oral tablet, 2 tablet, By Mouth, Daily, 5 refills amLODIPine 5 mg oral tablet, 1 tablet, By Mouth, Daily, 1 refills aspirin 81 mg oral tablet, 81 mg= 1 tablet, By Mouth, Daily, 3 refills atorvastatin 40 mg oral tablet, 1 tablet, By Mouth, Daily at bedtime Eliquis 2.5 mg oral tablet, 1 tablet, By Mouth, 2 times a day, 9 refills finasteride 5 mg oral tablet furosemide 20 mg oral tablet, See Instructions, 2 refills LORazepam 0.5 mg oral tablet, See Instructions, 1 refills LORazepam 1 mg oral tablet, 1 mg= 1 tablet, By Mouth, Daily at bedtime, PRN, 1 refills magnesium oxide 400 mg oral tablet, 1 tablet, By Mouth, Daily nystatin topical 323363 u/gm powder, 1 application, Topically, 2 times a day, 1 refills omeprazole 20 mg oral enteric coated capsule, 1 capsule, By Mouth, Daily, 1 refills tamsulosin 0.4 mg oral capsule, 1 capsule, By Mouth, Daily at bedtime Vitamin B1 100 mg oral tablet, 1 tablet, By Mouth, Daily Vitamin D3 2000 intl units oral capsule, 2000 International_Units= 1 capsule, By Mouth, Daily, 11 refills Allergies Bee Stings Effexor??(dizziness) FLUoxetine??(dizziness) Lactose??(diarrhea) Percocet??(vomiting) Percocet 5/325 Remeron??(dizziness) Welchol??(muscle and joint aches) carvedilol citalopram??(dizzy) lisinopril traZODone Social History Alcohol Use: Past. Employment/School Status: Retired. Other: Reports having had several jobs, the last being [employer]. 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 Exercise Self assessment: No routine exercise. Keeps active around home and yard. Reports overall health good and bad, exercise tolerance fair . Home/Environment Living situation: Home/Independent. Lives with: Alone. Other: receives cleaning services. Nutrition/Health Diet: Regular. Other Name: no issues driving. Substance Abuse Use: Never. Tobacco Use: Former smoker, quit more than 30 days ago. Type: Cigarettes, Cigars. Family History ASHD - Atherosclerotic heart disease: Mother (Dx at 67). Alzheimer's disease: Negative: Mother, Father, Sister, Daughter, Daughter and Son. Asthma: Son.Negative: Mother, Father, Sister, Daughter and Daughter. COPD: Negative: Mother, Father, Sister, Daughter, Daughter and Son. Cancer of colon: Negative: Mother, Father, Sister, Daughter, Daughter and Son. Cancer of prostate: Negative: Mother, Father, Sister, Daughter, Daughter and Son. DVT - Deep vein thrombosis: Negative: Mother, Father, Sister, Daughter, Daughter and Son. Depression: Negative: Mother, Father, Sister, Daughter, Daughter and Son. Diabetes mellitus type I: Negative: Mother, Father, Sister, Daughter, Daughter and Son. Diabetes mellitus type II: Negative: Mother, Father, Sister, Daughter, Daughter and Son. Hyperlipidemia: Negative: Mother, Father, Sister, Daughter, Daughter and Son. Hypertension: Negative: Mother, Father, Sister, Daughter, Daughter and Son. Stroke: Negative: Mother, Father, Sister, Daughter, Daughter and Son. Immunizations Vaccine Date Status pneumococcal 20-valent conjugate vaccine 03/16/2023 Given Comments : [id number] influenza virus vaccine, inactivated 08/24/2022 Recorded SARS-CoV-2 mRNA ([id number]) vax 04/29/2022 Given Comments : [facility]-[id number] influenza virus vaccine, inactivated 08/12/2021 Given Comments : [facility]# [address] [id number] SARS-CoV-2 (COVID-19) mRNA BNT-162b2 vac 02/08/2021 Recorded Comments : Pfizer ??right deltoid ??lot [id number] exp 06-06-2021 ??[facility] SARS-CoV-2 (COVID-19) mRNA BNT-162b2 vac 01/18/2021 Recorded influenza virus vaccine, inactivated 08/06/2020 Given Influenza Virus Vaccine (oldterm) 08/14/2019 Recorded influenza virus vaccine, inactivated 07/31/2018 Recorded Comments : [place] influenza virus vaccine, inactivated 06/30/2017 Recorded Comments : [06/30/2017] HIGH DOSE RECIEVED AT [facility] influenza virus vaccine, inactivated 08/26/2016 Given influenza virus vaccine, inactivated 08/10/2015 Given Comments : [08/12/2015] Received at [facility] [place] pneumococcal 13-valent vaccine 12/02/2014 Given influenza virus vaccine, inactivated 08/07/2014 Given influenza virus vaccine, inactivated 07/26/2013 Given Fluarix (oldterm) 08/23/2012 Given Fluarix (oldterm) 08/10/2011 Given pneumococcal 23-valent vaccine 01/18/2011 Given pneumococcal 23-valent vaccine - Not Given Tet/Diphth/Acel, Pertussis (oldterm) 12/15/2010 Given influenza virus vaccine, inactivated 11/27/2010 Given Influenza Inactive (IM) (oldterm) 07/25/2009 Given Zoster Vaccine Live 12/25/2008 Given Influenza Inactive (IM) (oldterm) 08/13/2008 Given Comments : given in clinic Influenza Inactive (IM) (oldterm) 09/01/2007 Given Influenza Virus Vaccine (oldterm) 08/31/2006 Given Comments : GIVEN IN [facility] tetanus-diphtheria toxoids (Td) 02/03/2001 Given Comments : historical data Pneumococcal Vaccine (oldterm) 11/07/1998 Given * Subhash Laboy MD: MODIFY Event Display: Consultation Note Authored Date: [id number] CONSULTATION DATE: 09/06/2023 ORTHOPEDIC CONSULTATION REFERRING PHYSICIAN: Nico Celestin M.D. CONSULTING PHYSICIAN: Subhash Laboy M.D. HISTORY OF PRESENT ILLNESS: Mr. Swan is an 88-year-old male seen today regarding left knee pain. The patient began experiencing this pain when he sustained a fall earlier in the day. The patient reports landing directly on the anterior aspect of the knee. Reports history of arthritis about the knee, but denies any recent difficulty with such. The patient denies numbness or tingling about the left lower extremity. PAST MEDICAL HISTORY, MEDICATIONS, ALLERGIES, PAST SURGICAL HISTORY, FAMILY HISTORY AND SOCIAL HISTORY: All per nursing intake sheet/EMR. PHYSICAL EXAMINATION: GENERAL: Mr. Swan is an 88-year-old gentleman, in no acute distress. He is alert. The patient is significantly hard of hearing. VITAL SIGNS: Weighs 84.1 kg. Temperature is 98.1 degrees, pulse 85, respirations 22, blood [id number]/73. EXTREMITIES: On examination of the left knee, the patient has intra-articular effusion as well as light bruising about the anterior aspect of the knee. No skin breakdown is noted. Range of motion is not tested. Tenderness to palpation about the anterior aspect the knee about the patella is appreciated. No significant tenderness about the proximal tibia is noted. Calf is soft. Left lower extremity, the patient has positive EHL, FHL function, is sensate to light touch, consistent with contralateral side. Good capillary refill is noted. RADIOLOGIC DATA: X-rays of the left knee reveal a comminuted mid pole patellar fracture without significant displacement or intra-articular congruity, noted arthritic changes about the knee appreciated. IMPRESSION AND PLAN: Mr. Swan is an 88-year-old gentleman, who sustained a comminuted mid pole, essentially nondisplaced fracture of the left patella as described above. Treatment options are discussed. The patient will be maintained in a knee immobilizer, may weightbear as he is able to tolerate in such. The patient does not require any current surgical intervention, will follow up with Dr. Subhash Laboy, who can be reached at [phone] in 7-10 days' time for recheck and repeat x-rays. Dictated by: Delta Warren Signing Clinician: Subhash Laboy M.D. Dictated: 09/07/2023 12:29:40 Transcribed: 07:53:25 PM Transcribed by: JARVIS DocID: [id number] PRELIMINARY REPORT UNLESS MANUALLY/ELECTRONICALLY SIGNED cc: Nico Celestin M.D. [facility] - [address] [place], [address] Attending addendum, films are reviewed, patient has a nondisplaced comminuted fracture of the midportion of left patella. Fairly moderate degenerative changes noted with osteophyte superiorly and inferiorly on the patella. No loss of congruence of articular surface. Plan as above, may weight bear as tolerated in the brace, only if the brace is fitting snuggly, and fitted so that it is centered onthe patella. If brace slides down, or is loose, will not give sufficient support. Follow-up with repeat x-rays in 2 weeks. We will follow him while he is in the hospital, currently admitted. Note * Tiara Zapata RN: PERFORM Event Display: Discharge/Transfer Note Hospital Authored Date: Nursing Discharge Note Entered On: 09/13/2023 18:12 EST Performed On: 09/13/2023 18:12 EST by Tiara Zapata RN Nursing Discharge Note 2 Discharge Time : 09/13/2023 17:30 EST Discharge Level of Care at Discharge : custodial facility Discharge Nursing Homes/Rehab Facilities : [facility] Patient Left Unit Via : Ambulance Patient Accompanied Off Unit with : Ambulance/Chair Van Personnel Handover Given to Transport Personnel : Yes DC Instructions Provided & Signed by Pt : No Patient Understands D/C Instructions : Yes Patient Instructions Discharge Signed : No Instructions for Discharge Comments : pt d/c to rehab Discharge Comments : no iv access on pt Did Pt have Specialty Bed or Wound Vac : No Tiara Zapata RN - 09/13/2023 18:12 EST * Daija Bower MD: MODIFY, PERFORM Event Display: Discharge/Transfer Note Hospital Authored Date: [id number] Patient: ??STEVEN SWAN ? Age:??88 Years?Sex:??Male?:??1935?? Patient Information Discharge Location: Primary Care Physician: Leo Breen DO Admit Date/Time: 09/09/23 17:15 Discharge Disposition Discharge Disposition: Care Home Facility/Rehab Discharge Diagnosis Delirium (R41.0) Fall (W19.XXXA) Left knee pain (M25.562) Patella fracture (S82.009A) ?? _ Discharge Medications Acetaminophen (acetaminophen 325 mg oral tablet)?975?Milligram?By Mouth?Every 8 hours Allopurinol (allopurinol 100 mg oral tablet)?2?tablet?By Mouth?Daily Amlodipine (amLODIPine 5 mg oral tablet)?1?tab(s)?By Mouth?Daily apixaban (Eliquis 2.5 mg oral tablet)?1?tab(s)?By Mouth?2 times a day Aspirin (aspirin 81 mg oral tablet)?1?tab(s)?81?Milligram?By Mouth?Daily?for 90?Days Atorvastatin (atorvastatin 40 mg oral tablet)?1?tab(s)?By Mouth?Daily at bedtime Cholecalciferol (Vitamin D3 2000 intl units oral capsule)?1?capsule?2,000?InternationalUnit?By Mouth?Daily?for 30?Days Docusate (Colace sodium 100 mg oral capsule)?100?Milligram?1?capsule?By Mouth?2 times a day Folic Acid (folic acid 1 mg oral tablet)?1?Milligram?By Mouth?Daily Furosemide (furosemide 20 mg oral tablet)?See Instructions?TAKE 1 TABLET BY MOUTH EVERY DAY Hydrocortisone Topical (HydroCORTisone ??1% Topical)?1?applicator?Topically?3 times a day Lorazepam (LORazepam 0.5 mg oral tablet)?0.5?tab(s)?0.25?Milligram?By Mouth?Dailyat bedtime?for 6?Days Magnesium Oxide (magnesium oxide 400 mg oral tablet)?1?tab(s)?By Mouth?Daily Melatonin (melatonin 3 mg oral tablet)?3?Milligram?By Mouth?Daily at bedtime Multivitamin (Multivitamin Tablet)?1?tab(s)?By Mouth?Daily Nystatin Topical (nystatin topical 951355 u/gm powder)?1?venancio?Topically?2 times a day Omeprazole (omeprazole 20 mg oral enteric coated capsule)?1?capsule?By Mouth?Daily Oxycodone (oxyCODONE 5 mg oral tablet)?5?Milligram?By Mouth?Every 6 hours?as needed?for 3?Days?Pain , Severe Polyethylene Glycol 3350 (MiraLax Powder)?1?pack/packet?17?gram?By Mouth?2 times a day Pyridoxine (Pyridoxine Tablet)?50?Milligram?By Mouth?Daily Senna (Senna 8.6 mg oral tablet)?17.2?Milligram?2?tab(s)?By Mouth?Daily Tamsulosin (tamsulosin 0.4 mg oral capsule)?1?capsule?By Mouth?Daily at bedtime Thiamine (thiamine 100 mg oral tablet)?100?Milligram?By Mouth?2 times a day ? Medications Started Oxycodone Medications Discontinued None Doses Changed Tylenol changed to scheduled every 8 hours Allergies Allergies ?(Active and Proposed Allergies Only) traZODone? (Severity: Unknown severity, Onset: Unknown) Lactose? 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 (Severity: Unknown severity, Onset: Unknown) Percocet 5/325? (Severity: Unknown severity, Onset: Unknown) ?Comments: Pt states the last time he hade it, 16 years ago, it made him vomit lisinopril? (Severity: Unknown severity, Onset: Unknown) ?Comments: cough ?Comments: possible carvedilol? (Severity: Unknown severity, Onset: Unknown) ?Comments: blurred vision Remeron? (Severity: Unknown severity, Onset: Unknown) ?Reactions: dizziness ?Comments: nightmares Percocet? (Severity: Unknown severity, Onset: Unknown) ?Reactions: vomiting FLUoxetine? (Severity: Unknown severity, Onset: Unknown) ?Reactions: dizziness Effexor? (Severity: Unknown severity, Onset: Unknown) ?Reactions: dizziness citalopram? (Severity: Unknown severity, Onset: Unknown) ?Reactions: dizzy Welchol? (Severity: Unknown severity, Onset: Unknown) ?Reactions: muscle and joint aches ? Future Appointments Tuesday 7:40 AM EST ?? 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 ??Found to have left patellar fracture, no intervention??per orthopedic.?? Significantly delirious in hospital, but this??resolved with pain control and lorazepam initiation given this was initially not being given and he has known hx of long benzo use and alcohol use ?? Initial delirium likely worsened by pain from fall/fracture and benzo withdrawal given he was not receiving benzos on admission Delirium resolved He is doing well, tolerating diet, alert and oriented to self and place (says hospital) but not to time -No leukocytosis -Renal function electrolytes acceptable -TSH and B12 within normal limits -UA negative for UTI -Seen by geriatrics, medicatiions as listed above ? Fall Left patellar fracture Patient had mechanical fall .?? Patient unable to really provide history at this time as he seems to be delirious. When patient presented he had left knee swelling and pain.?? Left knee x-ray shows Acute patellar fracture with intra-articular extension. Mild separation of fracture fragments. Patient was seen by Ortho?States that there is no acute surgical intervention needed at this time. -Tylenol 975 mg??TID scheduled -Oxycodone 5 mg q6h PRN -Knee immobilizer, weightbearing as tolerated, follow-up with Ortho outpatient ? Delirium - resolved Possible underlying cognitive decline HCP form signed by patient on 09/10/23 Geriatric team followed while inpatient Schedule lorazepam as mentioned above ? Alcohol use Patient reports that he does drink alcohol.?? Per friend Josefina significant alcohol use but unable to quantify Currently no signs of withdrawal ?? Chronic Problems: CAD s/p CABG, Carotid Artery Stenosis s/p CEA, HLD: Continue home dose Atorvastatin and Aspirin, and lasix Hx Afib: Continue home Eliquis Gout: Continue home dose Allopurinol GERD: Start Pantoprazole. Hold home dose Omeprazole BPH- continue home tamsulosin and finasteride HTN- continue Amlodipine 5mg daily ?? Vital Signs?? Temperature: 98 DegF (09/13/23 12:22:00) Temperature Route: Oral (09/13/23 12:22:00) Pulse Rate: 72 bpm (09/13/23 12:22:00) Respiratory Rate: 16 br/min (09/13/23 12:22:00) Systolic Blood Pressure: 103 mm Hg (09/13/23 12:22:00) Diastolic Blood Pressure: 62 mm Hg (09/13/23 12:22:00) Blood pressure sites: Arm, left (09/13/23 12:22:00) Mean Arterial Pressure: 76 mm Hg (09/13/23 12:22:00) Pulse Pressure: 41 mm Hg (09/13/23 12:22:00) Oxygen Saturation: 99 % (09/13/23 12:22:00) Mode of Delivery (Oxygen): Room air (09/13/23 12:22:00) Early Warning Score: 0 (09/13/23::14) ? Mobility & Ambulation Level Mobility & Ambulation Level Activity Assistance: Maximum assistance, Two person assistance (09/11/23) Activity Status ADL: Complete bedrest, Reposition every 2 hours (09/11/23) Ambulatory devices needed: Brace (09/11/23) ?? Therapeutic Activity Therapeutic Activities/Mobility/Balance Comments on treatment indicated: 88 y/o independent M suffered fall with Left patellar fracture nowWBAT immobilized in brace, No ROM until cleared by Ortho. ??Pt lives alone and is currently unable to stand and walk without physical assist, so rehab is indicated. (09/07/23 09:28:00) Plan of care PT: Gait training, Transfer training, Therapeutic exercise, Functional Activities, Balance training (09/07/23 09:28:00) Problems PT: Impaired strength/ROM, Impaired functional mobility, Impaired balance, Difficulty walking (09/07/23 09:28:00) Treatment Indicated-PT: Yes (09/07/23 09:28:00) Discharge recommendations: Rehab (09/07/23 09:28:00) Distance pt will ambulate: 10 ft with ww and KI (09/07/23 09:28:00) Ambulation, ??PT Plan: Minimal assist (09/12/23 10:13:00) Bed mobility: PT Plan: Minimal assist (09/12/23 10:13:00) Plan Discussed w/Pt,Family/Agreed Upon: Yes (09/07/23 09:28:00) Plan discussed with care team PT: RN, MD, PT, regional loss prevention manager (09/07/23 09:28:00) Rehab potential: Good (09/07/23 09:28:00) Transfer bed to chair PT Plan: Minimal assist (09/12/23 10:13:00) Transfer Sit to Stand, PT Plan: Minimal assist (09/12/23 10:13:00) ?? . Physical Exam Gen: appears comfortable, NAD Resp: CTAB, no wheezes, rales or rhonchi Abd: soft, NT, ND Neuro: alert, oriented to name and place, not time Ext; no edema Consultants Orthopedic surgery Geriatrics Pending Results Add On Lab Order ordered on 09/07/2023 Add On Lab Order ordered on 09/11/2023 Follow-Up Appointments Added Follow Up ?Time Frame ?Comments Jamshid DO, Leo Mcgrath?1 week: call to discuss follow up visit?hospital follow up with PCP Patient Instructions Please take all medications as prescribed Utilize scheduled tylenol and prn oxycodone for pain control Continue PT at rehab Post Discharge Care Discharge ?09/13/23 12:32:00 EST Discharge Prescriptions ?ePrescribed, 09/13/23 12:32:00 EST Home Health Face to Face ^HomeHealthFTF Results Discharge Labs BLOOD COUNT & DIFF WBC 10.0 k/mm3 ()?? 09/10/2023 08:53 RBC 3.62 m/mm3 (Low)?? 09/10/2023 08:53 Hgb 11.7 Gm/dL (Low)?? 09/10/2023 08:53 Hct 34.8 % (Low)?? 09/10/2023 08:53 MCV 96.1 femtoliters (High)?? 09/10/2023 08:53 MCH 32.3 pg ()?? 09/10/2023 08:53 MCHC 33.6 g/dL ()?? 09/10/2023 08:53 Platelet Count 149 k/mm3 (Low)?? 09/10/2023 08:53 RDW-SD 47.8 femtoliters (High)?? 09/10/2023 08:53 MPV 11.3 femtoliters ()?? 09/10/2023 08:53 Nucleated RBC (Automated) 0.0 #/100 WBC'S ()?? 09/10/2023 08:53 Abs. NRBC 0.0 k/mm3 ()?? 09/10/2023 08:53 Abs. Neut 7.7 k/mm3 (High)?? 09/09/2023 00:25 Abs. Lymph 1.2 k/mm3 ()?? 09/09/2023 00:25 Abs. Bell 1.1 k/mm3 ()?? 09/09/2023 00:25 Abs. Eo 0.1 k/mm3 ()?? 09/09/2023 00:25 Abs. Baso 0.0 k/mm3 ()?? 09/09/2023 00:25 Neut % 75.5 % ()?? 09/09/2023 00:25 Lymph % 12.2 % (Low)?? 09/09/2023 00:25 Bell % 10.7 % (High)?? 09/09/2023 00:25 Eos % 0.8 % ()?? 09/09/2023 00:25 Baso % 0.3 % ()?? 09/09/2023 00:25 RBC Morphology SLIGHT ()?? 09/06/2023 21:08 Platelet Estimate DECREASED ()?? 09/06/2023 21:08 Platelet Comment MODERATE ()?? 09/06/2023 21:08 Imm Gran 0.5 % ()?? 09/09/2023 00:25 Abs. Imm Gran 0.1 k/mm3 ()?? 09/09/2023 00:25 ? CARDIAC CK, Total 126 units/L ()?? 09/06/2023 21:08 High Sensitivity Troponin (HSTnT) 18 ng/L ()?? 09/08/2023 02:01 ?? CHEM GENERAL Sodium 138 mmol/L ()?? 09/10/2023 08:53 Potassium 3.8 mmol/L ()?? 09/10/2023 08:53 Chloride 103 mmol/L ()?? 09/10/2023 08:53 Bicarbonate Level 25 mmol/L ()?? 09/10/2023 08:53 Anion Gap 10 ()?? 09/10/2023 08:53 Glucose Level 107 mg/dL (High)?? 09/10/2023 08:53 Glucose, POC 138 mg/dL (High)?? 09/11/2023 17:16 BUN 18 mg/dL ()?? 09/10/2023 08:53 Creatinine-Blood 1.0 mg/dL ()?? 09/10/2023 08:53 Estimated GFR Creatinine 75 ML/MIN/1.73 M2 ()?? 09/10/2023 08:53 Calcium 8.8 mg/dL ()?? 09/08/2023 07:06 Phosphorus 3.0 mg/dL ()?? 09/10/2023 08:53 Magnesium 2.8 mg/dL (High)?? 09/10/2023 08:53 Protein, Total 6.9 Gm/dL ()?? 09/06/2023 21:08 Albumin 4.3 Gm/dL ()?? 09/06/2023 21:08 AG Ratio 1.7 ()?? 09/06/2023 21:08 Alkaline Phosphatase 104 units/L ()?? 09/06/2023 21:08 AST (SGOT) 18 units/L ()?? 09/06/2023 21:08 ALT (SGPT) 13 units/L ()?? 09/06/2023 21:08 Bilirubin, Total 2.6 mg/dL (High)?? 09/06/2023 21:08 Bilirubin, Direct 0.4 mg/dL (High)?? 09/06/2023 21:08 Bilirubin, Indirect 2.2 mg/dL (High)?? 09/06/2023 21:08 Vitamin B12 Level 432 pg/mL ()?? 09/09/2023 00:28 ? ENDOCRINE/TUMOR MARKER TSH 3.24 uIU/mL ()?? 09/09/2023 00:28 ? TOXICOLOGY/TDM Ethanol, Serum or Plasma NONE DETECTED mg/dL ()?? 09/08/2023 07:06 Barbiturate Screen, Urine NONE DETECTED ()?? 09/11/2023 14:48 Cannabinoid Screen, Urine NONE DETECTED ()?? 09/11/2023 14:48 Cocaine Metabolite Screen, Urine NONE DETECTED ()?? 09/11/2023 14:48 Methadone Screen, Urine NONE DETECTED ()?? 09/11/2023 14:48 Benzodiazepine Screen, Urine NONE DETECTED ()?? 09/11/2023 14:48 Amphetamine Screen, Urine NONE DETECTED ()?? 09/11/2023 14:48 Opiate Screen, Urine NONE DETECTED ()?? 09/11/2023 14:48 Oxycodone Screen, Urine NONE DETECTED ()?? 09/11/2023 14:48 Buprenorphine, Urine Random NONE DETECTED ()?? 09/11/2023 14:48 Fentanyl Screen, Urine Result NONE DETECTED ()?? 09/11/2023 14:48 ? UA/URINALYSIS Appear/Color, Urine YELLOW ()?? 09/11/2023 14:48 Specific [place], Urine 1.038 (High)?? 09/11/2023 14:48 pH, Urine 5.5 ()?? 09/11/2023 14:48 Albumin, Urine 1+ (Abnormal)?? 09/11/2023 14:48 Glucose, Urine NEGATIVE ()?? 09/11/2023 14:48 Ketones, Urine TRACE (Abnormal)?? 09/11/2023 14:48 Bilirubin, Urine 1+ (Abnormal)?? 09/11/2023 14:48 Hemoglobin, Urine 1+ (Abnormal)?? 09/11/2023 14:48 Nitrite, Urine NEGATIVE ()?? 09/11/2023 14:48 Leukocyte, Urine NEGATIVE ()?? 09/11/2023 14:48 Urobilinogen 2 mg/dL (Abnormal)?? 09/11/2023 14:48 WBC's, Urine 4 /HPF ()?? 09/11/2023 14:48 RBC's, Urine 18 /HPF (High)?? 09/11/2023 14:48 Mucus SLIGHT /LPF ()?? 09/11/2023 14:48 Hold Urine Culture Testing available 48 hours from time of collection. ()?? 09/11/2023 14:48 ? VIROLOGY Influenza A PCR NEGATIVE ()?? 09/07/2023 00:31 Influenza B PCR NEGATIVE ()?? 09/07/2023 00:31 RSV PCR NEGATIVE ()?? 09/07/2023 00:31 COVID-19 PCR Specimen Source NASAL ()?? 09/07/2023 00:31 COVID-19 PCR Result NEGATIVE ()?? 09/07/2023 00:31 ? Microbiology ?? COVID-19, RSV, and Flu A/B, Rapid PCR?? Completed?? Source: Nasal Body Site: Nose Collected Dt/Tm: 09/07/2023 00:15 Last Updated Dt/Tm: 09/07/2023 01:31 ? 40??minutes spent on discharge * Gi Regan: PERFORM, SIGN, VERIFY Event Display: Case Management Discharge Plan Authored Date: Patient: STEVEN SWAN Age: 88 years Sex: Male : 1935 Associated Diagnoses: None Author: Gi Regan Discharge Plan Case Management Discharge Plan : Case Management Discharge Plan Data 09/13/2023 12:52 EST Discharge Level of Care at Discharge custodial facility Discharge Nursing Homes/Rehab Facilities [facility] Discharge Transportation Arranged [facility] [address] [place] [address] Discharge Arranged Transport Date/Time 09/13/2023 15:00 Mode of Transportation Arranged Ambulance Name of Person Notified of Transfer DC Plan and IMM delivered to bedside * Jodi CHUN, Tiara: PERFORM Event Display: Patient Education/Instruction Authored Date: [id number] Inpatient Adult Discharge Instructions [address] [address] Name: STEVEN SWAN : 1935 Visit: 09/09/2023 17:15:00 Current Date: 09/13/2023 14:17 Account: [id number] Inpatient Adult Discharge Instructions We would like to thank you for allowing us to assist you with your healthcare needs. The following includes patient education materials and information regarding your injury/illness. Our entire staffstrives to provide an excellent experience for our patients and their families. PLEASE ENSURE YOU FOLLOW-UP PER THE INSTRUCTIONS BELOW! ?? YOUR OPINION IS IMPORTANT TO US! Please complete the survey you may receive by mail or email. Your feedback will be used to make improvements to the healthcare experiences of our patients and their families. Surveys are administered by [employer] ?? If further treatment with your primary care physician or another doctor is recommended, it is important for you to keep the appointment. Call your primary care physician or return to the Emergency Department immediately if your condition worsens, fails to improve, or new symptoms develop. If you need to find a doctor, you can call [facility] Link for a referral at [phone] or toll free at [phone] ([phone]) or log in to [email or web address].. ?? [facility], in keeping with [facility] guidance, no longer requires face masks for staff, patientsor visitors in most situations. Similiar to time spent indoors at other locations, there is the chance that you were exposed to repiratory viruses during your time with us (such as flu or COVID-19). If you develop symptoms concerning for a viral respiratory infection, please seek testing (and treatment if indicated) from your medical provider or home test kit. ?? You can view and manage your care through the patient portal or by using a health care venancio of your choosing. [employer] is a website that allows you to securely view your medical information including your hospital discharge summary, office visit summaries, medications and follow-up visits. You can also request appointments, renew medications, and request access to your medical information using a health care venancio of your choosing, or just ask a question. You can enroll at [email or web address] or register during your next office visit. You have been discharged from [facility], Patient Care Unit: S3. If you have any questions regarding these instructions after you leave, please call us and we will be happy to assist you. [facility] Your Care Team Attending Physician Sathish LENZ, Daija Consulting Providers Benoit LENZ, Subhash; Jh LENZ, Alvaro Bolden; Romulo LENZ, Laureano Barker; Juan Carlos LENZ, Shelly Discharging Providers Sathish LENZ, Daija Reason for Admission coming from home, unwitnessed fall this afternoon, on ground for 2+hrs, unknown LOC, on eliquis, hxpacemaker, L knee swelling, c/o L knee/groin/back pain Your Diagnosis Patella fracture Fall Left knee pain Delirium Tests Performed Below is a partial list of the tests performed during your hospitalization. You may have had other tests and procedures not included in this list. Please discuss all test results with your provider. Amphetamine Urine Screen Barbiturate Urine Screen Basic Metabolic Panel Benzodiazepine Urine Screen BUN Buprenorphine Urine Cannabinoid Urine Screen CBC CBC w/ Differential Cocaine Urine Screen Comprehensive Metabolic Panel COVID-19, RSV, and Flu A/B, Rapid PCR CPK Total Only Creatinine Electrolytes ETHANOL Fentanyl Screen, Urine Glucose Level GLUCOSE POC Magnesium Level Methadone Urine Opiate Screen Urine Oxycodone Screen Urine Phosphorus Level TOTAL AND DIRECT BILIRUBIN Troponin T, High Sensitivity TSH Urinalysis w/hold for Urine Culture VITAMIN B12 CT Cervical Spine W/O Contrast CT Head/Brain W/O Contrast CT Lumbar Spine W/O Contrast CT Pelvis W/O Contrast XR Chest 2 Views Frontal and Lat XR Elbow Min 3 Views Left XR Knee 1 or 2 Views Left Primary Care Provider Leo Breen DO Advance Directive Health Care Proxy on File Yes - Health Care Proxy Yes - MOLST Discharge Vitals Temperature: 98 DegF Pulse Rate: 71 bpm Respiratory Rate: 18 br/min Systolic Blood Pressure: 122 mm Hg Diastolic Blood Pressure: 65 mm Hg Oxygen Saturation: 96 % Studies Pending All tests and labs ordered during this hospital stay have been completed unless listed below. Please discuss all pending results with your provider listed above in these instructions. ?? Add On Lab Order What to do next Instructions From Your Doctor Please take all medications as prescribed Utilize scheduled tylenol and prn oxycodone for pain control Continue PT at rehab Discharge Orders Scheduled Follow-Up Appointments Tuesday 7:40 AM EST ?? Where: [facility] [address] [place] [id number]- Status: Pending You Need to Schedule the Following Appointments Follow Up with??Leo Breen DO When:??Within 1 week: call to discuss follow up visit Why: hospital follow up with PCP Where: [address] [place] [phone]- Discharge Medications STEVEN SWAN :1935 Visit Date:09/09/2023 Medications: Please continue your medications until treatment is completed or stopped by your provider. Medications not listed below should be discontinued. Discuss any questions related to medications with your provider. What How Much When Instructions Next Dose New Docusate (Colace sodium 100 mg oral capsule) 1 capsule Oral Twice a day 09/13 in pm New Folic Acid (folic acid 1 mg oral tablet) 1 Milligram Oral Daily 09/14 in am New Hydrocortisone Topical (HydroCORTisone 1% Topical) 1 applicator Topically 3 times a day 09/13 in pm New Melatonin (melatonin 3 mg oral tablet) 3 Milligram Oral Daily at Bedtime 09/13 at bedtime New Multivitamin (Multivitamin Tablet) 1 tab(s) Oral Daily 09/14 in am New Oxycodone (oxyCODONE 5 mg oral tablet) 5 Milligram Oral Every 6 hours as needed for Pain , Severe Duration: 3 Days Printed Prescription as needed New Polyethylene Glycol 3350 (MiraLax Powder) 17 gram Oral Twice a day 09/13 in pm New Pyridoxine (Pyridoxine Tablet) 50 Milligram Oral Daily 09/14 in am New Senna (Senna 8.6 mg oral tablet) 2 tab(s) Oral Daily 09/14 in am Changed Acetaminophen (acetaminophen 325 mg oral tablet) 975 Milligram Oral Every 8 hours as needed Changed Lorazepam (LORazepam 2 mg oral tablet) Oral Daily at supper 09/13 at supper Changed Thiamine (thiamine 100 mg oral tablet) 100 Milligram Oral Twice a day 09/13 in pm Unchanged Allopurinol (allopurinol 100 mg oral tablet) 2 tab(s) Oral Daily 09/14 in am Unchanged Amlodipine (amLODIPine 5 mg oral tablet) 1 tab(s) Oral Daily 09/14 in am Unchanged apixaban (Eliquis 2.5 mg oral tablet) 1 tab(s) Oral Twice a day 09/13 in pm Unchanged Aspirin (aspirin 81 mg oral tablet) 1 tab(s) Oral Daily Duration: 90 Days 09/14 in am Unchanged Atorvastatin (atorvastatin 40 mg oral tablet) 1 tab(s) Oral Daily at Bedtime 09/13 at bedtime Unchanged Cholecalciferol (Vitamin D3 2000 intl units oral capsule) 1 capsule Oral Daily Duration: 30 Days 09/14 in am Unchanged Finasteride (finasteride 5 mg oral tablet) 09/14 in am Unchanged Furosemide (furosemide 20 mg oral tablet) See instructions TAKE 1 TABLET BY MOUTH EVERY DAY ?? 09/14 in am Unchanged Magnesium Oxide (magnesium oxide 400 mg oral tablet) 1 tab(s) Oral Daily 09/14 in am Unchanged Nystatin Topical (nystatin topical 631275 u/ gm powder) 1 venancio Topically Twice a day 09/13 in pm Unchanged Omeprazole (omeprazole 20 mg oral enteric coated capsule) 1 capsule Oral Daily 09/14 in am Unchanged Tamsulosin (tamsulosin 0.4 mg oral capsule) 1 capsule Oral Daily at Bedtime 09/13 in pm Test Results Below is a partial list of the most recent Laboratory test results done prior to this discharge. You may have had other tests and procedures not included in this list. Please discuss all test resultswith your provider. Amphetamine Urine Screen (09/11/2023) ???Amphetamine Screen, Urine - NONE DETECTED Barbiturate Urine Screen (09/11/2023) ???Barbiturate Screen, Urine - NONE DETECTED Basic Metabolic Panel (09/08/2023) ???Sodium - 138 mmol/L???Potassium - 3.6 mmol/L???Chloride - 102 mmol/L???Bicarbonate Level - 24 mmol/L???Anion Gap - 12???Glucose Level - 110 mg/dL???BUN - 16 mg/dL???Creatinine-Blood - 1.1 mg/dL???Estimated GFR Creatinine - 69 ML/MIN/1.73 M2???Calcium - 8.8 mg/dL Benzodiazepine Urine Screen (09/11/2023) ???Benzodiazepine Screen, Urine - NONE DETECTED BUN (09/10/2023) ???BUN - 18 mg/dL Buprenorphine Urine (09/11/2023) ???Buprenorphine, Urine Random - NONE DETECTED Cannabinoid Urine Screen (09/11/2023) ???Cannabinoid Screen, Urine - NONE DETECTED CBC (09/10/2023) ???WBC - 10.0 k/mm3???RBC - 3.62 m/mm3???Hgb - 11.7 Gm/dL???Hct - 34.8 %???MCV - 96.1 femtoliters???MCH - 32.3 pg???MCHC - 33.6 g/dL???Platelet Count - 149 k/mm3???RDW-SD - 47.8 femtoliters???MPV - 11.3 femtoliters???Nucleated RBC (Automated) - 0.0 #/100 WBC'S???Abs. NRBC - 0.0 k/mm3 CBC w/ Differential (09/09/2023) ???WBC - 10.2 k/mm3???RBC - 3.69 m/mm3???Hgb - 11.8 Gm/dL???Hct - 35.1 %???MCV - 95.1 femtoliters???MCH - 32.0 pg???MCHC - 33.6 g/dL???Platelet Count - 78 k/mm3???RDW-SD - 47.2 femtoliters???MPV - 12.8 femtoliters???Nucleated RBC (Automated) - 0.0 #/100 WBC'S???Abs. NRBC - 0.0 k/mm3???Abs. Neut - 7.7 k/mm3???Abs. Lymph - 1.2 k/mm3???Abs. Bell - 1.1 k/mm3???Abs. Eo - 0.1 k/mm3???Abs. Baso - 0.0 k/mm3???Neut % - 75.5 %???Lymph % - 12.2 %???Bell % - 10.7 %???Eos % - 0.8 %???Baso % - 0.3 %???Imm Gran - 0.5 %???Abs. Imm Gran - 0.1 k/mm3 Cocaine Urine Screen (09/11/2023) ???Cocaine Metabolite Screen, Urine - NONE DETECTED Comprehensive Metabolic Panel (09/06/2023) ???Sodium - 139 mmol/L???Potassium - 3.6 mmol/L???Chloride - 101 mmol/L???Bicarbonate Level - 23 mmol/L???Anion Gap - 15???Glucose Level - 117 mg/dL???BUN - 21 mg/dL???Creatinine-Blood - 1.2 mg/dL???Estimated GFR Creatinine - 59 ML/MIN/1.73 M2???Calcium - 9.3 mg/dL???Protein, Total - 6.9 Gm/dL???Alb umin - 4.3 Gm/dL???AG Ratio - 1.7???Alkaline Phosphatase - 104 units/L???AST (SGOT) - 18 units/L???ALT (SGPT) - 13 units/L???Bilirubin, Total - 2.6 mg/dL COVID-19, RSV, and Flu A/B, Rapid PCR (09/07/2023) ???Influenza A PCR - NEGATIVE???Influenza B PCR - NEGATIVE???RSV PCR - NEGATIVE???COVID-19 PCR Specimen Source - NASAL???COVID-19 PCR Result - NEGATIVE CPK Total Only (09/06/2023) ???CK, Total - 126 units/L Creatinine (09/10/2023) ???Creatinine-Blood - 1.0 mg/dL???Estimated GFR Creatinine - 75 ML/MIN/1.73 M2 Electrolytes (09/10/2023) ???Sodium - 138 mmol/L???Potassium - 3.8 mmol/L???Chloride - 103 mmol/L???Bicarbonate Level - 25 mmol/L???Anion Gap - 10 ETHANOL (09/08/2023) ???Ethanol, Serum or Plasma - NONE DETECTED Fentanyl Screen, Urine (09/11/2023) ???Fentanyl Screen, Urine Result - NONE DETECTED Glucose Level (09/10/2023) ???Glucose Level - 107 mg/dL GLUCOSE POC (09/11/2023) ???Glucose, POC - 138 mg/dL Magnesium Level (09/10/2023) ???Magnesium - 2.8 mg/dL Methadone Urine (09/11/2023) ???Methadone Screen, Urine - NONE DETECTED Opiate Screen Urine (09/11/2023) ???Opiate Screen, Urine - NONE DETECTED Oxycodone Screen Urine (09/11/2023) ???Oxycodone Screen, Urine - NONE DETECTED Phosphorus Level (09/10/2023) ???Phosphorus - 3.0 mg/dL TOTAL AND DIRECT BILIRUBIN (09/06/2023) ???Bilirubin, Total - 2.6 mg/dL???Bilirubin, Direct - 0.4 mg/dL???Bilirubin, Indirect - 2.2 mg/dL Troponin T, High Sensitivity (09/08/2023) ???High Sensitivity Troponin (HSTnT) - 18 ng/L TSH (09/09/2023) ???TSH - 3.24 uIU/mL Urinalysis w/hold for Urine Culture (09/11/2023) ???Appear/Color, Urine - YELLOW???Specific [place], Urine - 1.038???pH, Urine - 5.5???Albumin, Urine - 1+???Glucose, Urine - NEGATIVE???Ketones, Urine - TRACE???Bilirubin, Urine - 1+???Hemoglobin, Urine - 1+???Nitrite, Urine - NEGATIVE???Leukocyte, Urine - NEGATIVE???Urobilinogen - 2 mg/dL???WBC's,Urine - 4 /HPF???RBC's, Urine - 18 /HPF???Mucus - SLIGHT???Hold Urine Culture - Testing available 48 hours from time of collection. VITAMIN B12 (09/09/2023) ???Vitamin B12 Level - 432 pg/mL Allergies (NKA means No Known Allergies) Bee Stings Effexor??(dizziness) FLUoxetine??(dizziness) Lactose??(diarrhea) Percocet??(vomiting) Percocet 5/325 Remeron??(dizziness) Welchol??(muscle and joint aches) carvedilol citalopram??(dizzy) lisinopril traZODone Problems Active Problems??(46) Adjustment disorder with depressed mood?? Anxiety?? 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 Arteriosclerotic heart disease (ASHD) cabg 2003;x1?? [facility] Pack Master, Deb Brito [phone]?? Benign Essential Hypertension?? Benign essential microscopic hematuria?? Bladder cancer 2010/refuses f/u cyysto 2021 advised re abn cytology?? BPH (benign prostatic hyperplasia)?? Breast pain, left refer breast center?? Cardiac pacemaker?? Carpal tunnel syndrome?? Cervical disc disorder?? Chronic anticoagulation?? Chronic back pain spine center 2021?? Chronic diarrhea episodic normal IGA TTG 2014?? Chronic gout?? Decreased urine output?? GERD?? H/O endarterectomy RT 2009,left 2020?? History of lacunar cerebrovascular accident MRI 2020?? Hx of CABG x 1;2002?? Hyperlipidemia?? Hypomagnesemia?? Insomnia?? Knee osteoarthritis?? LBBB (left bundle branch block)?? Left inguinal hernia?? Mass of left parotid gland 1.[address] 2020 dec?? Memory loss noemal b12,thiamine tsh?? Mild major depression, single episode?? Mild mitral insufficiency?? Neck pain?? Nephrolithiasis?? PAF (paroxysmal atrial fibrillation) [id number]?? Pituitary microadenoma?? Restless legs syndrome (RLS)?? S/P TAVR (transcatheter aortic valve replacement)?? Sensory hearing loss, bilateral?? Spondylosis of lumbar spine?? 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 Tricuspid insufficiency?? Trochanteric bursitis of right hip?? Type 2 diabetes mellitus with peripheral angiopathy?? Type 2 diabetes with nephropathy?? Weakness?? Education Materials Below is the list of Educational Leaflet Providered with your Discharge Instructions. Valuables and Belongings I fully understand and agree that [facility] accepts no responsibility for all my personal property including clothing, toilet articles, radios, jewelry, dentures, hearing aids, rings, money, or any other property that is in my possession or is brought to me after admission. I understand certain valuables may be placed in a hospital safe for a short period of time. I understand that the hospital is not liable for loss or damage due to accident, fire, or other natural occurrence while said property is in the safe. I accept full responsibility for any personal property that I keep with me, and will not hold the hospital responsible in case of loss or disappearance. I acknowledge that i have been encouraged to send valuables and belongings home. ?? No Valuables/Belongings: No valuables/belongings present Review of Valuable and Belonging List: With patient, With witness Date for Pt to Sign Valuables/Belongings: 09/13/23 14:08:00 ?? Other Discharge Information ?? Wound Assessment?? Wound Assessment?? Wound Location I: Arm, Left Upper Wound Type I: Skin Tear ?? Case Management Discharge Plan?? Discharge Plan?? Discharge Agency Information?? Discharge Level of Care at Discharge: custodial facility Name of Person Notified of Transfer: DC Plan and IMM delivered to bedside Discharge Transportation Arranged: [facility] [address] [facility] ??[phone] ?? Mode of Transportation Arranged: Ambulance ?? Discharge Arranged Transport Date/Time: 09/13/23 15:00:00 ?? Discharge Nursing Homes/Rehab Facilities: [facility] ? Pulmonary Rehab Status?? Pulmonary Rehab Discharge Status?? Respiratory Rate: 18 br/min ? Common Emergency Awareness Tips IS IT A STROKE? Act FAST and Check for these signs: FACE Does the face look uneven? ARM Does one arm drift down? SPEECH Does their speech sound strange? TIME Call at any sign of stroke ?? Heart Attack Signs Chest discomfort: Most heart attacks involve discomfort in the center of the chest and lasts more than a few minutes, or goes away and comes back. It can feel like uncomfortable pressure, squeezing, fullness or pain. Discomfort in upper body: Symptoms can include pain or discomfort in one or both arms, back, neck, jaw or stomach. Shortness of breath: With or without discomfort. Other signs: Breaking out in a cold sweat, nausea, or lightheaded. Remember, MINUTES DO MATTER. If you experience any of these heart attack warning signs, call to get immediate medical attention! ?? Smoking can increase your chances of developing chronic health problems and can cause harmful effects to other family members in your house. If you smoke, you are strongly encouraged to quit. Please call [facility] [email or web address] Link at [phone] or [phone] ([phone]) or log in to [email or web address] for referrals to smoking cessation programs. ?? 863 Suicide & Crisis Lifeline is available 30/05 if you or someone you know needs to find a reason to keep living. By calling 646 you'll be connected to a skilled, trained counselor at a crisis center in your area. INPATIENT DISCHARGE INSTRUCTIONS SIGNATURE PAGE STEVEN SWAN Location:[facility] Registration Date and Time:09/09/2023 17:15 EDT Primary Care Physician: Leo Breen DO, Attending Physician: Sathish LENZ, [facility], I STEVEN SWAN, have received the above patient education materials/instructions and have verbalized understanding. If ambulance or transport services are being used I further acknowledge being givena choice of service. ?? If you need to contact me, please call me at this number: . Patient/Head Scorer Name: Patient/Head Scorer Signature: Relationship to Patient: Witness Name/Signature: Date: Patient Care team information Care Team Personnel Name: Dang Moser RN Position: [facility] RN Member Role: Primary Care Nurse Name: Giovana Dodd NP Position: [facility] PCO Associate Professional Member Role: Lifetime Consulting Provider Address: Address: [address] [place] [address] [place] [address]- Name: Adam Dennis MD Position: [facility] Cardiology MD Member Role: Lifetime Consulting Physician Address: Address: [address] [place] [address] [address] [place] [address]- Name: Julia Yu RN Position: [facility] RN Member Role: Primary Care Nurse Name: Jo Dillon RN Position: [facility] RN Member Role: Primary Care Nurse Name: Anh Pires RN Position: [facility] RN Member Role: Primary Care Nurse Name: Lonnie Puente RN Position: [facility] RN Member Role: Primary Care Nurse Name: Jaqueline Johnson RN Position: [facility] RN Member Role: Primary Care Nurse Name: Deb Brito Position: [facility] MA Pack Master Member Role: Director Learning Name: Leo Breen DO Position: [facility] Physician - Primary Care Member Role: PCP Address: Address: [address] [place] [address] [place] [address]- Name: Viki Collazo RN Position: [facility] RN Member Role: Primary Care Nurse Name: Santy OLEARY Attending Position: [facility] ED Medicine Name: Peri Saba RN Position: [facility] ED RN W/OE and Tasks Member Role: Patient Care Provider Name: Ted Carter Position: [facility] ED TA [facility] Member Role: Explosives Detonator Name: Josue Hickey RN Position: [facility] ED RN W/OE and Tasks Member Role: Patient Care Provider Care Team Related Persons Name: FLORENCESHAYNA KELLY Address: home [address] [place] [address] Name: JOSEFINA CONTRERAS Address: home [address] [place] [address]
--- OUTSIDE RECORDS SUMMARY | 2023-10-05 10:02 | XMS_ITS | Continuity of Care Document ---
Author Name Unknown Organization [facility] Address [address] [place] [address]- Care Team Providers Care Exhibition Designer Name Role Phone Charisma LENZ, Michael Boston Primary Care Physician [phone] Encounter [facility] Date(s): 12/17/19 - 12/24/19 [facility] Adult [address] [place] [address]- [facility] Encounter Diagnosis Type 2 diabetes mellitus with peripheral angiopathy(Discharge Diagnosis) - 12/16/19 Type 2 diabetes with nephropathy(Discharge Diagnosis) - 12/16/19 Arteriosclerotic heart disease (ASHD) cabg 2002;x1(Discharge Diagnosis) - 12/16/19 Benign Essential Hypertension(Discharge Diagnosis) - 12/16/19 Hyperlipidemia NOS(Discharge Diagnosis) - 12/16/19 CHF (congestive heart failure) systolic(Discharge Diagnosis) - 12/16/19 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(Discharge Diagnosis) - 12/16/19 Chronic renal disease, stage 3, moderately decreased glomerular filtration rate (GFR) between 30-59mL/min/1.73 square meter(Discharge Diagnosis) - 12/16/19 H/O endarterectomy RT 2009(Discharge Diagnosis) - 12/16/19 Hx of CABG x 1;2002(Discharge Diagnosis) - 12/16/19 Left carotid artery stenosis;prior rt cea(Discharge Diagnosis) - 12/16/19 PAF (paroxysmal atrial fibrillation) [id number] 6(Discharge Diagnosis) - 12/16/19 Chronic anticoagulation(Discharge Diagnosis) - 12/16/19 Chronic gout(Discharge Diagnosis) - 12/16/19 GERD EGD 2007y(Discharge Diagnosis) - 12/16/19 Encounter for monitoring long-term proton pump inhibitor therapy(Discharge Diagnosis) - 12/16/19 Pituitary microadenoma(Discharge Diagnosis) - 12/17/19 Major depression(Discharge Diagnosis) - 12/17/19 Attending Physician: Charisma LENZ, Michael Boston Allergies, [...] [06/30/2017] HIGH DOSE RECIEVED AT [facility] 4Rrenée Comment: [08/12/2015] Received at [facility] 5Admin Note: given in clinic [...] Mouth, 2 times a day, LOT # [id number] EXP 12/28 X8 BOX, # 60 tablet, [...] Gm, 0 Refills, Maintenance, 10/10/19 11:35:05 EST, [place], 1 sprays Nares, Both 2 times a [...] Maintenance, 12/17/19 11:48:00 EST, Tablet, [facility]/pharmacy #[id number], Rx resent from 11/03/16., 176.5, cm, 12/17/19 11:35:00 EST, Height, 83.4, kg, 11/02/18 13:42:00 EST, Dry Weight Start Date: 12/17/19 Status: Ordered LORazepam 2 mg oral tablet 1 tablet = 2 mg, By Mouth, 2 times a day, # 60 tablet, 0 Refills, Maintenance, 12/17/19 11:46:00 EST, [facility]/pharmacy #[id number], 176.5, cm, 12/17/19 11:35:00 EST, Height, 83.4, kg, 11/02/18 13:42:00 EST, Dry Weight Start Date: 12/17/19 Status: Ordered metoprolol 25 mg oral tablet 25 mg, 1, tablet, By Mouth, Daily, # 90 tablet, Refills 3, Tot. Refills 3, Maintenance, 12/18/19 13:53:00 EST, Route to Pharmacy Electronically, [facility]/pharmacy #[id number], succinate, 176.5, cm, 12/17/19 11:35:00 EST, Height, 83.4, kg, 11/02/18 13:42:00 EST,... Start Date: 12/18/19 Status: Ordered metoprolol 25 mg oral tablet 25 mg, 1, tablet, By Mouth, Daily, for 90 days, # 90 tablet, Refills 3, Tot. Refills 3, Hard Stop 10/30/20 12:58:00 EST, 11/05/19 12:58:00 EST, Route to Pharmacy Electronically, [facility]/pharmacy #[id number], 176.5, cm, 10/23/19 15:57:00 EST, Height, 83.4, kg, 1... Start Date: 11/05/19 Stop Date: 10/30/20 Status: Ordered omeprazole 20 mg oral delayed release tablet 1 tablet = 20 mg, By Mouth, Daily, # 90 tablet, 3 Refills, Maintenance, 12/17/19 11:48:00 EST, EC Tablet, [facility]/pharmacy #[id number], 176.5, cm, 12/17/19 11:35:00 EST, Height, 83.4, kg, 11/02/18 13:42:00 EST, Dry Weight Start Date: 12/17/19 Status: Ordered tamsulosin 0.4 mg oral capsule 0.4 mg, By Mouth, Daily at bedtime, # 90 capsule, Refills 3, Tot. Refills 3, Maintenance, 12/17/19 11:48:00 EST, Route to Pharmacy Electronically, [facility]/pharmacy #[id number], 176.5, cm, 12/17/19 11:35:00 [...] Active Anxiety(Confirmed) Active Aortic valve prosthesis pres [id number] TAVR 2018(Confirmed) 2, 3 Active Arteriosclerotic heart [...] Elevated PSA(Confirmed) 12 Active Foot pain(Confirmed) Active GERD EGD 2007y(Confirmed) Active Chronic gout(Confirmed) [...] 23 Active PAF (paroxysmal atrial fibri llation) [id number] 6(Confirmed) Active Pituitary microadenoma(Confi rmed) 24, 25, 26 Active Restless legs syndrome (RLS)(Confirmed) Active Thrombocytopenia(Confirmed) 27, 28 06/22/09 Active Tricuspid insufficiency(Confirmed) Active Trochanteric bursitis of rig ht hip(Confirmed) Active Type 2 diabetes with nephropathy(Confirmed) Active Type 2 diabetes mellitus wit h peripheral angiopathy(Confirmed) Active 1educated about use epi pen /when call 2[facility] [address] [facility] graft 5CABG 2002 6Dr nini addressing 7nephrolithiasis 8to workup 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 12urology addressing [id number] 14ortho 15chronic 16RFA 17djd xray 2-015 18xray [...] diabetes mellitus with peripheral angiopathy Discharge Diagnosis 12/16/19 Type 2 diabetes with nephropathy Discharge Diagnosis 12/16/19 Arteriosclerotic heart disease (ASHD) cabg 2002;x1 Discharge Diagnosis 12/16/19 Benign Essential Hypertension Discharge Diagnosis 12/16/19 Hyperlipidemia NOS Discharge Diagnosis 12/16/19 CHF (congestive heart failure) systolic Discharge Diagnosis 12/16/19 Aortic valve prosthesis [id number] TAVR 2018 Discharge Diagnosis 12/16/19 Chronic renal disease, stage 3, moderately decreased glomerular filtration rate (GFR) between 30-59 mL/min/1.73 square meter Discharge Diagnosis 12/16/19 H/O endarterectomy RT 2009 Discharge Diagnosis 12/16/19 Hx of CABG x 1;2002 Discharge Diagnosis 12/16/19 Left carotid artery stenosis;prior rt cea Discharge Diagnosis 12/16/19 PAF (paroxysmal atrial fibrillation) [id number] 6 Discharge Diagnosis 12/16/19 Chronic anticoagulation Discharge Diagnosis 12/16/19 Chronic gout Discharge Diagnosis 12/16/19 GERD EGD 2007y Discharge Diagnosis 12/16/19 Encounter for monitoring long-term proton pump inhibitor therapy Discharge Diagnosis 12/16/19 Pituitary microadenoma Discharge Diagnosis 12/17/19 Major depression Discharge Diagnosis 12/17/19 Procedures Procedure Date Related Diagnosis Body Site Status Echocardiogram ef 35-40 %/TAVR 11/06/19 Completed EKG sinus lbbb 11/06/19 Completed Vital Signs Most recent to oldest [Reference Range]: 1 2 Height 176.5 cm (12/17/19 11:35 AM) 176.5 cm (12/17/19 11:10 AM) Weight 83.8 kg (12/17/19 11:10 AM) Oxygen Saturation [94-100 %] 95 % (12/17/19 11:10 AM) Pulse Rate [55-90 bpm] 68 bpm (12/17/19 11:10 AM) Body Mass Index [18.5-24.99] 26.9 *H* (12/17/19 11:10 AM) Blood Pressure [90-138/55-84 mm Hg] 118/ 78mm Hg (12/17/19 11:35 AM) 136/90mm Hg (12/17/19 11:10 AM) Respiratory Rate [16-30 br/min] 18 br/mi n (12/17/19 11:10 AM) Temperature [96.8-100.4 DegF] 97.6 DegF (12/17/19 11:10 AM) Blood pressure sites Arm, left (12/17/19 11:35 AM) Arm, left (12/17/19 11:10 AM) Temperature Route Oral (12/17/19 11:10 AM) Social History Social History Type Response Smoking Status Former smoker, quit more than 30 days ago entered on: 03/01/19 Sex
--- OUTSIDE RECORDS SUMMARY | 2023-10-05 10:03 | XMS_ITS | Continuity of Care Document ---
Author Name Unknown Organization [facility] Address [address] [place] [address]- Care Team Providers Care Client Liaison Name Role Phone Michael Zafar MD Primary Care Physician [phone] Encounter [facility] Date(s): 01/21/22 - 05/21/22 [facility] [address] [place] [address]- Attending Physician: Michael Zafar MD Allergies, Adverse [...] Vaccine Date Status Refusal Reason SARS-CoV-2 mRNA ([id number]) vax 1 04/29/22 Given influenza virus vaccine, [...] Vaccine (oldterm) 11/07/98 Given 1Result Comment: [facility]-[id number] 2Result Comment: [facility]# [address] [address]02 3Location History: [place] 4Result Comment: [06/30/2017] [facility] 5Resconstance Comment: [08/12/2015] Received at [facility] 6Result Comment: Pfizer right deltoid lot [id number] [facility] 7Admin Note: GIVEN IN CLINIC SHAM [...] 03/24/22 10:26:00 EDT, Route to Pharmacy Electronically, [facility], 175, cm, 03/05/22 11:48:00 EDT, Height, 84.1, kg, 06/07/21 4:26:00 EDT,... Start Date: 03/24/22 Status: Ordered amLODIPine 5 mg oral tablet 1 tablet, By Mouth, Daily, # 90 tablet, 1 Refills, [facility], 175, cm, 02/09/22 10:10:00 [...] a day, # 180 tablet, 9 Refills, [facility], 175, cm, 02/09/22 10:10:00 EDT, Height, 84.1, kg, 06/07/21 4:26:00 EDT, Dry Weight Start Date: 02/10/22 Status: Ordered LORazepam 1 mg oral tablet 1 tablet = 1 mg, By Mouth, Daily at bedtime, to fill on Monday 03/26 before weekend, # 30 tablet, 0 Refills, Maintenance, 05/18/22 14:34:00 EDT, [facility], 175, cm, 05/12/22 13:46:00 EDT, Height, 84.1, kg, 06/07/21 4:26:00 EDT, . Start Date: 05/18/22 Status: Ordered magnesium oxide 400 mg oral tablet 1 tablet, By Mouth, Daily, # 90 tablet, 1 Refills, [facility], 175, cm, 02/09/22 10:10:00 [...] Start Date: 05/05/22 Status: Ordered nystatin topical [id number] u/gm powder 1 application, Topically, 2 times [...] 90 capsule, 0 Refills, 05/13/22 12:10:00 EDT, [facility], 175, cm, 05/12/22 13:46:00 EDT, Height, 84.1, kg, 06/07/21 4:26:00 EDT, Dry Weight Start Date: 05/13/22 Status: Ordered sertraline 25 mg oral tablet 1 tablet = 25 mg, By Mouth, Daily, # 30 tablet, 4 Refills, Maintenance, 04/29/22 11:16:00 EDT, Tablet, [facility], Partial fill upon patient request if the prescription is for a schedule II opioid drug., 175, cm, 04/29/22 10:58:00... Start Date: 04/29/22 Status: Ordered tamsulosin 0.4 mg oral capsule 1, capsule, By Mouth, Daily at bedtime, # 90 capsule, Refills 1, Tot. Refills 1, 05/13/22 12:10:00 EDT, Route to Pharmacy Electronically, [facility], 175, cm, 05/12/22 13:46:00 [...] Active Anxiety(Confirmed) Active Aortic valve prosthesis pres [id number] TAVR 2017(Confirmed) 2, 3 Active Arteriosclerotic heart [...] 25 Active PAF (paroxysmal atrial fibri llation) [id number] 6(Confirmed) Active 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, 27, 28 Active Restless legs syndrome (RLS)(Confirmed) Active Thrombocytopenia hematology 2009 ? 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 12giardiam,o/p ,culture neg 13normal IGA/TTG 14workup 15urology addressing [id number] 17ortho 18chronic 19RFA 20djd xray 2-015 21xray [...]
--- OUTSIDE RECORDS SUMMARY | 2023-10-05 10:03 | XMS_ITS | Continuity of Care Document ---
Author Name Unknown Organization [facility] Address [address] [place] [address]- Care Team Providers Care Biogeographer Name Role Phone Charisma LENZ, Michael Boston Primary Care Physician [phone] Encounter [facility] Date(s): 01/15/22 - 02/14/22 [facility] [address] [place] [address]- [place] Allergies, Adverse Reactions, Alerts Substance Reaction Severity [...] vac 01/18/21 Recorded Influenza Virus Vaccine (oldterm) 10/8/19 Recorde d Influenza Virus Vaccine (oldterm) 6 [...] Given 1Result Comment: [facility]# [address] [phone] 2Location History: [place] 3Resconstance Comment: [06/30/2017] HIGH DOSE RECIEVED AT [facility] 4Resconstance Comment: [08/12/2015] [place] [facility] 5Result Comment: Pfizer right deltoid lot [id number] exp 06-06-2021 [facility] 6Admin Note: GIVEN IN CLINIC SHAM 7Admin [...] Mouth, Daily, # 90 tablet, 1 Refills, [facility], 175, cm, 02/09/22 10:10:00 [...] a day, # 180 tablet, 9 Refills, [facility], 175, cm, 02/09/22 10:10:00 [...] 30 tablet, 0 Refills, Maintenance, 01/25/22 11:41:00EDT, [facility], 175, cm, 01/14/22 10:06:00 EST, Height, 84.1, kg, 06/07/21 4:26:00 EDT, Dry Weight Start Date: 01/25/22 Status: Ordered magnesium oxide 400 mg oral tablet 1 tablet, By Mouth, Daily, # 90 tablet, 1 Refills, [facility], 175, cm, 02/09/22 10:10:00 EDT, Height, 84.1, kg, 06/07/21 4:26:00 EDT, Dry Weight Start Date: 02/10/22 Status: Ordered melatonin 5 mg oral tablet By Mouth, Daily at bedtime, 0 Refills, Maintenance, 08/08/20 9:44:00 EDT, Tablet Start Date: 08/08/20 Status: Ordered nystatin topical [id number] u/gm powder 1 application, Topically, 2 times a day, # 60 Gm, 5 Refills, Maintenance, 01/14/22 10:20:00 EST, Powder, [facility], Partial fill upon patient request if the prescription is for a schedule II opioid drug., 1 application Topically... Start Date: 01/14/22 Status: Ordered omeprazole 20 mg oral enteric coated capsule 1 capsule, By Mouth, Daily, # 90 capsule, 0 Refills, [facility], 175, cm, 02/09/22 10:10:00 EDT, Height, 84.1, kg, 06/07/21 4:26:00 EDT, Dry Weight Start Date: 02/10/22 Status: Ordered tamsulosin 0.4 mg oral capsule 1, capsule, By Mouth, Daily at bedtime, # 90 capsule, Refills 0, Route to Pharmacy Electronically, [facility], 175, cm, 02/09/22 10:10:00 [...] Active Anxiety(Confirmed) Active Aortic valve prosthesis pres [id number] TAVR 2017(Confirmed) 2, 3 Active Arteriosclerotic heart [...] 25 Active PAF (paroxysmal atrial fibri llation) [id number] 6(Confirmed) Active 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 12giardiam,o/p ,culture neg 13normal IGA/TTG 14workup 15urology addressing [id number] 17ortho 18chronic 19RFA 20djd xray 2-015 21xray [...]
--- OUTSIDE RECORDS SUMMARY | 2023-10-05 10:03 | XMS_ITS | Continuity of Care Document ---
Author Name Unknown Organization [facility] Address [address] [place] [address]- Care Team Providers Care Torch Heater Name Role Phone Michael Zafar MD Primary Care Physician [place] [facility] [place] 12/17/19 - 12/17/[address] [address] Attending Physician: Michael Zafar MD Allergies, Adverse [...] 3Rrenée Comment: [06/30/2017] HIGH DOSE RECIEVED AT [facility] 4Rrenée Comment: [08/12/2015] Re[place] at [facility] 5Admin Note: given in clinic 6Admin Note: [...] Mouth, 2 times a day, LOT # [id number] EXP 12/28 X8 BOX, # 60 tablet, [...] Gm, 0 Refills, Maintenance, 10/10/19 11:35:05 EST, [place], 1 sprays Nares, Both 2 times a [...] Replace Required Details, Route to Pharmacy Electronically, [facility]/... Start Date: 12/17/19 Status: Ordered LIDODERM [...] 3 Refills, Maintenance, 12/17/19 11:48:00 EST, Tablet, [facility]/pharmacy #[id number], Rx resent from 11/03/16., 176.5, cm, 12/17/19 11:35:00 EST, Height, 83.4, kg, 11/02/18 13:42:00 EST, Dry Weight Start Date: 12/17/19 Status: Ordered LORazepam 2 mg oral tablet 1 tablet = 2 mg, By Mouth, 2 times a day, # 60 tablet, 0 Refills, Maintenance, 12/17/19 11:46:00 EST, [facility]/pharmacy #[id number], 176.5, cm, 12/17/19 11:35:00 EST, Height, 83.4, kg, 11/02/18 13:42:00 EST, Dry Weight Start Date: 12/17/19 Status: Ordered metoprolol 25 mg oral tablet 25 mg, 1, tablet, By Mouth, Daily, # 90 tablet, Refills 3, Tot. Refills 3, Maintenance, 10/30/20 12:58:00 EST, Route to Pharmacy Electronically, [facility]/pharmacy #[id number], 176.5, cm, 12/17/19 11:35:00 EST, Height, 83.4, kg, 11/02/18 13:42:00 EST, Dry Weight Start Date: 10/30/20 Status: Ordered metoprolol 25 mg oral tablet 25 mg, 1, tablet, By Mouth, Daily, for 90 days, # 90 tablet, Refills 3, Tot. Refills 3, Hard Stop 10/30/20 12:58:00 EST, 11/05/19 12:58:00 EST, [id number] 176.5, cm, 10/23/19 15:57:00 EST, Height, 83.4, kg, 1... Start Date: 11/05/19 Stop Date: 10/30/20 Status: Ordered omeprazole 20 mg oral delayed release tablet 1 tablet = 20 mg, By Mouth, Daily, # 90 tablet, 3 Refills, Maintenance, 12/17/19 11:48:00 EST, EC Tablet[id number], 176.5, cm, 12/17/19 11:35:00 EST, Height, 83.4, kg, 11/02/18 13:42:00 EST, Dry Weight Start Date: 12/17/19 Status: Ordered tamsulosin 0.4 mg oral capsule 0.4 mg, By Mouth, Daily at bedtime, # 90 capsule, Refills 3, Tot. Refills 3, Maintenance, 12/17/19 11:48:00 EST, [id number], 176.5, cm, 12/17/19 11:35:00 [...] Active Anxiety(Confirmed) Active Aortic valve prosthesis pres [id number] TAVR 2017(Confirmed) 2, 3 Active Arteriosclerotic heart [...] 12 Active Foot pain(Confirmed) Active GERD EGD 2006y(Confirmed) Active Chronic gout(Confirmed) [...] 23 Active PAF (paroxysmal atrial fibri llation) [id number] 6(Confirmed) Active Pituitary microadenoma(Confi rmed) 24, 25, 26 Active Restless legs syndrome (RLS)(Confirmed) Active Thrombocytopenia(Confirmed) 27, 28 06/22/09 Active Tricuspid insufficiency(Confirmed) Active Trochanteric bursitis of rig ht hip(Confirmed) Active Type 2 diabetes with nephropathy(Confirmed) Active Type 2 diabetes mellitus wit h peripheral angiopathy(Confirmed) Active 1educated about use epi pen /when call 2[employer] PERICARDIAL VALVE [facility] [address] 41 graft 5CABG 2002 6Dr nini addressing 7nephrolithiasis 8to workup 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 12urology addressing [id number] 14ortho 15chronic 16RFA 17djd xray 2-015 18xray [...]
--- OUTSIDE RECORDS SUMMARY | 2023-10-05 10:03 | XMS_ITS | Continuity of Care Document ---
Author Name Unknown Organization [facility] Tom lt Address [address] [place] [address]- Care Team Providers Care Circuit Designer Name Role Phone Charisma LENZ, Michael Boston Primary Care Physician [phone] [place] [facility] [place] 09/28/21 - 10/28/21 [facility] Adult [address] [place] [address]- Allergies, Adverse Reactions, Alerts Substance Reaction Severity [...] Given 1Result Comment: [facility]# ON [address] [phone] 2Location History: [place] 3Result Comment: [06/30/2017] HIGH DOSE RECIEVED AT [facility] 4Rrenée Comment: [08/12/2015] Received at [facility] 5Result Comment: Pfizer right deltoid lot [id number] exp 06-06-2021 [facility] 6Admin Note: GIVEN IN CLINIC SHAM [...] Replace Required Details, Route to Pharmacy Electronically, [facility]/pharmacy #[id number], 175, cm, 06/07/21 8:16:00 [...] 3 Refills, Maintenance, 03/17/21 11:43:00 EDT, [id number], 175, cm, 02/06/21 10:40:00 EDT, Height, 79, [...] 30 tablet, 0 Refills, Maintenance, 10/05/21 16:08:00EST, [facility], 175, cm, 09/23/21 12:36:00 EST, Height, 84.1, kg, 06/07/21 4:26:00 EDT, Dry Weight Start Date: 10/05/21 Status: Ordered magnesium oxide 400 mg oral tablet 1 tablet = 400 mg, By Mouth, Daily, # 90 tablet, 3 Refills, Maintenance, 02/12/21 17:31:00 EDT, Tablet, [facility]/pharmacy #[id number], Partial fill upon patient [...] 0 Refills, Maintenance, 10/12/21 15:26:00 EST, Tablet, [facility]/pharmacy #[id number], Partial fill upon patient request if the prescription is fora schedule II opioid drug., 175, cm, 10/12/21 14:45... Start Date: 10/12/21 Status: Ordered tamsulosin 0.4 mg oral capsule 1, capsule, By Mouth, Daily at bedtime, # 90 capsule, Refills 1, Tot. Refills 0, Maintenance, 05/08/21 14:24:00 EDT, Route to Pharmacy Electronically, [facility], 175, cm, 04/29/21 10:36:00 EDT,Height, 79, kg, [...] Active Anxiety(Confirmed) Active Aortic valve prosthesis pres [id number] TAVR 2017(Confirmed) 2, 3 Active Arteriosclerotic heart [...] 25 Active PAF (paroxysmal atrial fibri llation) [id number] 6(Confirmed) Active 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, 27, 28 Active Restless legs syndrome (RLS)(Confirmed) Active Thrombocytopenia(Confirmed) 29, 30 06/22/09 Active Tricuspid insufficiency(Confirmed) Active Trochanteric bursitis of rig ht hip(Confirmed) Active Type 2 diabetes with nephropathy(Confirmed) Active Type 2 diabetes mellitus wit h peripheral angiopathy(Confirmed) Active 1educated about use epi pen /when call 2[employer] PERICARDIAL VALVE 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 12giardiam,o/p ,culture neg 13normal IGA/TTG 14workup 15urology addressing [id number] 17ortho 18chronic 19RFA 20djd xray 2-015 21xray [...]
--- OUTSIDE RECORDS SUMMARY | 2023-10-05 10:03 | XMS_ITS | Continuity of Care Document ---
Author Name Unknown Organization [facility] Tom lt Address [address] [place] [address]- Care Team Providers Care Radio Engineering Teacher Name Role Phone Charisma LENZ, Michael Boston Primary Care Physician [place] [facility] [place] 01/21/22 [facility] Adult [address] [place] [address]- Encounter Diagnosis Type 2 diabetes with nephropathy(Discharge Diagnosis) - 01/14/22 Type 2 diabetes mellitus with peripheral angiopathy(Discharge Diagnosis) - 01/14/22 Arteriosclerotic heart disease (ASHD) cabg 2002;x1(Discharge Diagnosis) - 01/14/22 CHF (congestive heart failure) systolic(Discharge Diagnosis) - 01/14/22 H/O endarterectomy RT 2010,left 2020 DEC(Discharge Diagnosis) - 01/14/22 Hyperlipidemia NOS(Discharge Diagnosis) - 01/14/22 Benign Essential Hypertension(Discharge Diagnosis) - 01/14/22 Chronic renal disease, stage 3, moderately decreased glomerular filtration rate (GFR) between 30-59mL/min/1.73 square meter(Discharge Diagnosis) - 01/14/22 Hypomagnesemia(Discharge Diagnosis) - 01/14/22 Pituitary microadenoma(Discharge Diagnosis) - 01/14/22 PAF (paroxysmal atrial fibrillation) [id number] 6(Discharge Diagnosis) - 01/14/22 Chronic anticoagulation(Discharge Diagnosis) - 01/14/22 Chronic gout(Discharge Diagnosis) - 01/14/22 Gout flare(Discharge Diagnosis) - 01/14/22 S/P TAVR (transcatheter aortic valve replacement)(Discharge Diagnosis) - 01/14/22 Mass of left parotid gland 1.[address] 2020 dec(Discharge Diagnosis) - 01/14/22 History of lacunar cerebrovascular accident MRI 2020(Discharge Diagnosis) - 01/14/22 GERD EGD 2007y(Discharge Diagnosis) - 01/14/22 Encounter for monitoring long-term proton pump inhibitor therapy(Discharge Diagnosis) - 01/14/22 Attending Physician: Charisma LENZ, Michael Boston Allergies, [...] 07/25/09 Given Influenza Inactive (IM) (oldterm) 7 10/7/08 Given Influenza Inactive (IM) (oldterm) 09/01/07 Given Zoster Vaccine Live 12/25/08 Given tetanus-diphtheria toxoids (Td) 8 02/03/01 Given Pneumococcal Vaccine (oldterm) 11/07/98 Given 1Result Comment: [facility]# ON [address] [phone] 2Location History: [place] 3Result Comment: [06/30/2017] HIGH DOSE RECIEVED AT [facility] 4Resconstance Comment: [08/12/2015] Received at [facility] [place] 5Result Comment: Pfizer right deltoid lot [id number] exp 06-06-2021 [facility] 6Admin Note: GIVEN IN CLINIC [...] Route to Pharmacy Electronically, [facility], 175, cm, 08/12/21 15:35:00 EDT, Height, 84.1, kg, 06/07/21 4:26:00 EDT,... Start Date: 09/01/21 Status: Ordered amLODIPine 5 mg oral tablet See Instructions, 1/2 at night, # 45 each, Refills 1, Tot. Refills 1, Maintenance, 06/08/21 11:27:00 EDT, Instructions Replace Required Details, Route to Pharmacy Electronically, [facility]/pharmacy #[id number], 175, cm, 06/07/21 8:16:00 EDT, Height, 84.1, kg, 08... Start Date: 06/08/21 Status: Ordered aspirin 81 mg oral tablet 1 tablet = 81 mg, By Mouth, Daily, # 90 tablet, 3 Refills, 1 tablet By Mouth Daily,x90 days Start Date: 10/26/13 Stop Date: 10/21/14 Status: Ordered atorvastatin 40 mg oral tablet 1 tablet, By Mouth, Daily at bedtime, # 90 tablet, 1 Refills, 09/01/21 11:50:00 EDT, [facility], 175, cm, 08/12/21 15:35:00 EDT, Height, 84.1, kg, 06/07/21 4:26:00 EDT, Dry Weight Start Date: 09/01/21 Status: Ordered Eliquis 2.5 mg oral tablet 1 tablet, By Mouth, 2 times a day, # 180 tablet, 3 Refills, Maintenance, 03/17/21 11:43:00 EDT, [facility], 175, cm, 02/06/21 10:40:00 EDT, Height, 79, [...] 30 tablet, 0 Refills, Maintenance, 12/30/21 16:06:00EST, [facility], 175, cm, 10/12/21 14:45:00 EST, Height, [...] Start Date: 08/08/20 Status: Ordered nystatin topical 820907 u/gm powder 1 application, Topically, 2 times a day, # 60 Gm, 5 Refills, Maintenance, 01/14/22 10:20:00 EST, Powder, [facility], Partial fill upon patient request if the prescription is for a schedule II opioid drug., 1 application Topically... Start Date: 01/14/22 Status: Ordered omeprazole 20 mg oral enteric coated capsule 1 capsule, By Mouth, Daily, # 90 capsule, 0 Refills, 09/01/21 11:50:00 EDT, [facility], 175, cm, 08/12/21 15:35:00 EDT, Height, 84.1, kg, 06/07/21 4:26:00 EDT, Dry Weight Start Date: 09/01/21 Status: Ordered predniSONE 50 mg oral tablet 1 tablet = 50 mg, By Mouth, Daily, with food or milk, # 4 tablet, 0 Refills, Maintenance, 01/14/22 10:19:00 EST, Tablet, [facility], Partial fill upon patient request if the prescription is for a schedule II opioid drug., 175, cm,... Start Date: 01/14/22 Status: Ordered tamsulosin 0.4 mg oral capsule 1, capsule, By Mouth, Daily at bedtime, # 90 capsule, Refills 1, Tot. Refills 0, Maintenance, 05/08/21 14:24:00 EDT, Route to Pharmacy Electronically, [facility], 175, cm, 04/29/21 10:36:00 EDT,Height, 79, kg, 11/26/20 11:00:00 EST, Dry Weight Start Date: 05/08/21 Status: Ordered thiamine 100 mg oral tablet 100 mg, 1, tablet, By Mouth, Daily, # 30 tablet, Refills 11, Tot. Refills 11, Maintenance, 10/05/2116:07:00 EST, Route to Pharmacy Electronically, [facility], 175, cm, 09/23/21 12:36:00 EST, Height, [...] Active Anxiety(Confirmed) Active Aortic valve prosthesis pres [id number] TAVR 2017(Confirmed) 2, 3 Active Arteriosclerotic heart [...] 25 Active PAF (paroxysmal atrial fibri llation) [id number] 6(Confirmed) Active 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 12giardiam,o/p ,culture neg 13normal IGA/TTG 14workup 15urology addressing [id number] 17ortho 18chronic 19RFA 20djd xray 2-015 21xray [...] Type 2 diabetes with nephropathy Discharge Diagnosis 01/14/22 Type 2 diabetes mellitus with peripheral angiopathy Discharge Diagnosis 01/14/22 Arteriosclerotic heart disease (ASHD) cabg 2002;x1 Discharge Diagnosis 01/14/22 CHF (congestive heart failure) systolic Discharge Diagnosis 01/14/22 H/O endarterectomy RT 2009,left 2020 Discharge Diagnosis 01/14/22 Hyperlipidemia NOS Discharge Diagnosis 01/14/22 Benign Essential Hypertension Discharge Diagnosis 01/14/22 Chronic renal disease, stage 3, moderately decreased glomerular filtration rate (GFR) between 30-59 mL/min/1.73 square meter Discharge Diagnosis 01/14/22 Hypomagnesemia Discharge Diagnosis 01/14/22 Pituitary microadenoma Discharge Diagnosis 01/14/22 PAF (paroxysmal atrial fibrillation) [id number] Discharge Diagnosis 01/14/22 Chronic anticoagulation Discharge Diagnosis 01/14/22 Chronic gout Discharge Diagnosis 01/14/22 Gout flare Discharge Diagnosis 01/14/22 Non-Specified S/P TAVR (transcatheter aortic valve replacement) Discharge Diagnosis 01/14/22 Mass of left parotid gland 1.[address] 2020 dec Discharge Diagnosis 01/14/22 History of lacunar cerebrovascular accident MRI 2020 Discharge Diagnosis 01/14/22 GERD EGD 2007y Discharge Diagnosis 01/14/22 Encounter for monitoring long-term proton pump inhibitor therapy Discharge Diagnosis 01/14/22 Vital Signs Most recent to oldest [Reference Range]: 1 Height 175 cm (01/14/22 10:06 AM) Weight 86.4 kg (01/14/22 10:06 AM) Oxygen Saturation [94-100 %] 98 % (01/14/22 10:06 AM) Pulse Rate [55-90 bpm] 83 bpm (01/14/22 10:06 AM) Body Mass Index [18.5-24.99] 28.21 *H* (01/14/22 10:06 AM) Blood Pressure [90-138/55-84 mm Hg] 128/ 60mm Hg (01/14/22 10:06 AM) Blood pressure sites Arm, left (01/14/22 10:06 AM) Weight Obtained Via Standing scale (01/14/22 10:06 AM) Social History Social History Type Response Smoking Status Former smoker, quit more than 30 days ago entered on: 03/01/19 Sex
--- OUTSIDE RECORDS SUMMARY | 2023-10-05 10:03 | XMS_ITS | Continuity of Care Document ---
Author Name Unknown Organization [facility] Kirk Tom lt Address [address] [place] [address]- Care Team Providers Care Preanalytics Team Lead Name Role Phone Michael Zafar MD Primary Care Physician Encounter [facility] [place] [id number] Date(s): 09/23/21 - 09/30/21 [facility] Adult [address] [place] [address]- Encounter Diagnosis Medicare annual wellness visit, subsequent(Discharge Diagnosis) - 09/23/21 Mild major depression(Discharge Diagnosis) - 09/23/21 Type 2 diabetes with nephropathy(Discharge Diagnosis) - 09/23/21 Type 2 diabetes mellitus with peripheral angiopathy(Discharge Diagnosis) - 09/23/21 Attending Physician: Michael Zafar MD Allergies, Adverse [...] Vaccine (oldterm) 11/07/98 Given 1Result Comment: [facility]# ON [address] [phone] 2Location History: [place] 3Rrenée Comment: [06/30/2017] HIGH DOSE RECIEVED AT [facility] 4Rrenée Comment: [08/12/2015] [place] [facility] [place] 5Result Comment: Pfizer right deltoid lot [id number] exp 06-06-2021 [facility] 6Admin Note: GIVEN IN CLINIC SHAM 7Admin [...] 09/01/21 11:50:00 EDT, Route to Pharmacy Electronically, [facility], 175, cm, 08/12/21 15:35:00 EDT, Height, 84.1, kg, 06/07/21 4:26:00 EDT,... Start Date: 09/01/21 Status: Ordered amLODIPine 5 mg oral tablet See Instructions, 1/2 at night, # 45 each, Refills 1, Tot. Refills 1, Maintenance, 06/08/21 11:27:00 EDT, Instructions Replace Required Details, Route to Pharmacy Electronically, [facility]/pharmacy #[id number], 175, cm, 06/07/21 8:16:00 EDT, Height, [...] 3 Refills, Maintenance, 03/17/21 11:43:00 EDT, [facility], 175, cm, 02/06/21 10:40:00 EDT, Height, 79, [...] Required Details, Route to Pharmacy Electronically, [facility]/... Start Date: 12/17/19 Status: Ordered LIDODERM PATCH [...] 30 tablet, 0 Refills, Maintenance, 09/30/21 12:40:00EST, [facility], 10/10/21, 175, cm, 09/23/21 12:36:00 EST, Height, 84.1, kg, 06/07/21 4:26:00 EDT, Dry Weight Start Date: 09/30/21 Status: Ordered magnesium oxide 400 mg oral tablet 1 tablet = 400 mg, By Mouth, Daily, # 90 tablet, 3 Refills, Maintenance, 02/12/21 17:31:00 EDT, Tablet, [facility]/pharmacy #[id number], Partial fill upon patient request if [...] 90 capsule, 0 Refills, 09/01/21 11:50:00 EDT, [facility], 175, cm, 08/12/21 15:35:00 EDT, Height, 84.1, kg, 06/07/21 4:26:00 EDT, Dry Weight Start Date: 09/01/21 Status: Ordered tamsulosin 0.4 mg oral capsule 1, capsule, By Mouth, Daily at bedtime, # 90 capsule, Refills 1, Tot. Refills 0, Maintenance, 05/08/21 14:24:00 EDT, Route to Pharmacy Electronically, [facility], 175, cm, 04/29/21 10:36:00 EDT,Height, 79, kg, 11/26/20 11:00:00 EST, Dry Weight Start Date: 05/08/21 Status: Ordered thiamine 100 mg oral tablet 100 mg, 1, tablet, By Mouth, Daily, # 30 tablet, Refills 11, Tot. Refills 11, Maintenance, 09/08/2013:24:00 EST, Route to Pharmacy Electronically, [facility]/pharmacy #[id number], 175, cm, 09/08/20 12:47:00 EST,Height, 80.6, kg, 08/05/20 17:31:00 EDT, Dry Weight Start Date: 09/08/20 Status: Ordered traZODone 50 mg oral tablet 25 mg, 0.5, tablet, By Mouth, Daily at bedtime, # 15 tablet, Refills 0, Tot. Refills 0, Maintenance, 09/23/21 13:14:00 EST, Route to Pharmacy Electronically, [facility], Partial fill upon [...] Active Anxiety(Confirmed) Active Aortic valve prosthesis pres [id number] TAVR 2017(Confirmed) 2, 3 Active Arteriosclerotic heart [...] 25 Active PAF (paroxysmal atrial fibri llation) [id number] 6(Confirmed) Active 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, 27, 28 Active Restless legs syndrome (RLS)(Confirmed) Active Thrombocytopenia(Confirmed) 29, 30 06/22/09 Active Tricuspid insufficiency(Confirmed) Active Trochanteric bursitis of rig ht hip(Confirmed) Active Type 2 diabetes with nephropathy(Confirmed) Active Type 2 diabetes mellitus wit h peripheral angiopathy(Confirmed) Active 1educated about use epi pen /when call 2[employer] PERICARD[employer] VALVE [facility] [address] 41 graft 5CABG 2002 6Dr nini addressing 7nephrolithiasis 8to workup 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 12giardiam,o/p ,culture neg 13normal IGA/TTG 14workup 15urology addressing [id number] 17ortho 18chronic 19RFA 20djd xray 2-015 21xray [...] Medicare annual wellness visit, subsequent Discharge Diagnosis 09/23/21 Mild major depression Discharge Diagnosis 09/23/21 Type 2 diabetes with nephropathy Discharge Diagnosis 09/23/21 Type 2 diabetes mellitus with peripheral angiopathy Discharge Diagnosis 09/23/21 Vital Signs Most recent to oldest [Reference Range]: 1 Height 175 cm (09/23/21 12:36 PM) Weight 86.9 kg (09/23/21 12:36 PM) Oxygen Saturation [94-100 %] 98 % (09/23/21 12:36 PM) Pulse Rate [55-90 bpm] 77 bpm (09/23/21 12:36 PM) Body Mass Index [18.5-24.99] 28.38 *H* (09/23/21 12:36 PM) Blood Pressure [90-138/55-84 mm Hg] 138/ 82mm Hg (09/23/21 12:36 PM) Temperature [96.8-100.4 DegF] 97.6 DegF (09/23/21 12:36 PM) Mode of Delivery (Oxygen) Room air (09/23/21 12:36 PM) Blood pressure sites Arm, left (09/23/21 12:36 PM) Temperature Route Oral (09/23/21 12:36 PM) Weight Obtained Via Standing scale (09/23/21 12:36 PM) Social History Social History Type Response Smoking Status Former smoker, quit more than 30 days ago entered on: 03/01/19 Sex
--- OUTSIDE RECORDS SUMMARY | 2023-10-05 10:03 | XMS_ITS | Continuity of Care Document ---
Author Name Unknown Organization [facility] Tom lt Address [address] [place] [address]- Care Team Providers Care Motor Vehicle Clerk Name Role Phone Ju FINANCE INSURANCE MANAGER, Giovana Chiu Primary Care Physician [phone] Encounter [facility] Date(s): 01/03/23 - 02/02/23 [facility] Adult [address] [place] [address]- Allergies, Adverse Reactions, Alerts Substance Reaction Severity [...] vaccine, inactivated 11/27/10 Give n SARS-CoV-2 mRNA ([id number]) vax 5 04/29/22 Given SARS-CoV-2 (COVID-19) mRNA [...] Pneumococcal Vaccine (oldterm) 11/07/98 Given 1Result Comment: [facility]# ON [address] [phone] 2Location History: [place] 3Result Comment: [06/30/2017] HIGH DOSE RECIEVED AT [facility] 4Resconstance Comment: [08/12/2015] Received at [facility] 5Result Comment: [facility]-[id number] 6Result Comment: Pfizer right deltoid lot [id number] exp 06-06-2021 [facility] 7Admin Note: GIVEN IN CLINIC SHAM 8Admin [...] 90 tablet, 1 Refills, 11/24/22 14:41:00 EST, [facility], 175, cm, 09/29/22 12:43:00 EST, Height, [...] tablet, 2 Refills, Maintenance, 11/24/22 14:36:00 EST, [facility], 175, cm, 09/29/22 12:43:00 EST... Start [...] Start Date: 01/24/23 Status: Ordered nystatin topical 625246 u/gm powder 1 application, Topically, 2 times [...] capsule, 0 Refills, Maintenance, 11/24/22 14:41:00 EST, [facility], 175, cm, 09/29/22 12:43:00 EST, Height, 84.1, kg, 06/07/21 4:26:00 EDT, Dry Weight Start Date: 11/24/22 Status: Ordered tamsulosin 0.4 mg oral capsule 1, capsule, By Mouth, Daily at bedtime, # 90 capsule, Refills 1, Tot. 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 12giardiam,o/p ,culture neg 13normal IGA/TTG 14workup 15urology addressing [id number] 17ortho 18chronic 19RFA 20djd xray 2-015 21xray [...] Team Personnel Name: Giovana Dodd NP Position: [facility] PCO Associate Professional Member Role: PCP Address: Address: [address] [place] [phone]- [place] Name: Adam Dennis MD Position: [facility] Cardiology MD Member Role: Lifetime Consulting Physician Address: Address: [address] [place] [address] [address] [place] [phone]- Name: Julia Yu RN Position: [facility] RN Member Role: Primary Care Nurse Name: Jo Dillon RN Position: S RN Member Role: Primary Care Nurse Name: Anh Pires RN Position: S RN Member Role: Primary Care Nurse Name: Lonnie Puente Position: S RN Member Role: Primary Care Nurse Name: Jaqueline Johnson RN Position: S RN Member Role: Primary Care Nurse Name: Kathy Garcia RN Position: [facility] RN Member Role: Primary Care Nurse Name: Viki Collazo RN Position: [facility] RN Member Role: Primary Care Nurse Care Team Related Persons Name: SARWAT HENRIQUEZ Address: home [address] [place] [address] Name: JOSEFINA CONTRERAS Address: home [address] [place] [address]
--- OUTSIDE RECORDS SUMMARY | 2023-10-05 10:03 | XMS_ITS | Continuity of Care Document ---
Author Name Unknown Organization [facility] ter Address [address] [place] [phone]- Care Team Providers Care Trackwalker Name Role Phone Charisma LENZ, Michael Boston Primary Care Physician [phone] Encounter [facility] Date(s): 11/22/20 - 11/29/[address] [address]- Encounter Diagnosis Bradycardia(Final) - 11/22/20 Hematuria(Final) - 11/23/20 Chronic gout(Discharge Diagnosis) - 11/23/20 Memory loss(Discharge Diagnosis) - 11/23/20 Discharge Disposition: A-D/C Home Attending Physician: Yumiko Azar DO Admitting Physician: Dwight Bowman MD Referring Physician: Not on Staff, Referring [...] Comment: [06/30/2017] HIGH DOSE RECIEVED AT [facility] DR Lucero Comment: [08/12/2015] [place] [facility] [place] Note: GIVEN IN CLINIC SHAM 5Admin [...] 11:45:00 EST, Route to Pharmacy Electronically, [facility]/pharmacy #[id number], 175, cm, 10/20/20 11:12:00 EST, Height, 80.6, kg, 08/05/20 17:31:00 EDT, Dry Weight Start Date: 10/20/20 Status: Ordered amLODIPine 5 mg oral tablet 5 mg, Tablet, By Mouth, 11/29/20 9:00:00 EST Start Date: 11/29/20 Stop Date: 11/29/20 Status: Completed amLODIPine 5 mg oral tablet 5 mg, 1, tablet, By Mouth, Daily, For blood pressure. Call your primary care doctor's office for refills., # 30 tablet, Refills 0, Tot. Refills 0, Maintenance, 11/28/20 22:27:00 EST, Route to Pharmacy Electronically, [facility], Partial... Start Date: 11/28/20 Status: Ordered apixaban 2.5 mg oral tablet 1 tablet = 2.5 mg, By Mouth, 2 times a day, # 180 tablet, 3 Refills, Maintenance, 03/05/20 13:50:00EDT, [facility]/pharmacy #[id number], 176.5, cm, 12/25/19 15:48:00 EST, [...] tablet, 2 Refills, Maintenance, 09/08/20 12:59:00EST, [facility]/pharmacy #[id number], 175, cm, 09/08/20 12:47:00 EST, [...] 12/17/19 11:48:00 EST, EC Tablet, [facility]/pharmacy #[id number], 176.5, cm, 12/17/19 11:35:00 EST, Height, 83.4, kg, 11/02/18 13:42:00 EST, Dry Weight Start Date: 12/17/19 Status: Ordered tamsulosin 0.4 mg oral capsule 0.4 mg, By Mouth, Daily at bedtime, # 90 capsule, Refills 3, Tot. Refills 3, Maintenance, 12/17/19 11:48:00 EST, Route to Pharmacy Electronically, [facility]/pharmacy #[id number], 176.5, cm, 12/17/19 11:35:00 EST, Height, 83.4, kg, 11/02/18 13:42:00 EST, Dry Weight Start Date: 12/17/19 Status: Ordered thiamine 100 mg oral tablet 100 mg, 1, tablet, By Mouth, Daily, # 30 tablet, Refills 11, Tot. 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 12giardiam,o/p ,culture neg 13normal IGA/TTG 14workup 15urology addressing [id number] 17ortho 18chronic 19RFA 20djd xray 2-015 21xray 2004 LS arthritis etc 22BCG 23carcinoma in situ 24saw ortho 25s aw ortho;injected SEVERE pain 26endocrinology addressing 27MRI pti ;refer endo 28mri c spine 2014 29per hematology ? 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;to follow 30workup in progress Diagnosis Diagnosis Type Effective Dates Health Status Cl inical Service Informant Chronic gout Discharge Diagnosis 11/23/20 Memory loss Discharge Diagnosis 11/23/20 Results Orders for Microbiology Reports Name Date Urine Culture (URINE CULTURE) 11/23/20 Microbiology Reports TEST:Urine Culture STATUS:Auth (Verified) BODY SITE: SOURCE:CLEAN COLLECTED DATE/TIME:11/23/20 2:03 AM Urine Culture SPECIMEN DESCRIPTION : CLEAN CATCH (URINE) SPECIAL REQUESTS : NONE CULTURE : NO GROWTH REPORT STATUS : FINAL 11/24/2020 Radiology Reports * Exam Date Time Procedure Performing Provider Status 11/29/20 7:48 AM Chest 2 Views Frontal and Lat Julia Butler; Auth (Verified) Notes: (Chest 2 Views Frontal and Lat) Reason For Exam: Postop RESULT: Chest 2 Views Frontal and Lat Chest 2 Views Frontal and Lat Reason: Postop; Clinical Question(s): Line Placement; Pneumothorax; Special Instructions: Patient may go unmonitored. Please keep film at back desk; Order Comment: s p dual chamber pacemaker COMPARISON: 11/28/2020 and 08/20/2019. FINDINGS: LINES AND TUBES: Again seen is a dual-lead intercardiac pacemaker. LUNGS AND PLEURA: Clear lungs. Normal pulmonary vascularity. No pleural effusion. No pneumothorax. HEART, MEDIASTINUM AND BRETT: Heart is normal in size. Normal upper mediastinal and hilar contour. BONES AND SOFT TISSUES: No acute abnormality. IMPRESSION: No acute abnormality. WSN: [id number] Ordering Physician: Ildefonso Guerrero Dictated By: Sherry Sheridan MD Dictated Date/Time: 11/29/20 8:11 am Reviewed By: Sherry Sheridan MD Signed By: Sherry Sheridan MD Signed Date/Time: 11/29/20 8:11 am Transcribed By: WOJCIECH Transcribed Date/Time: 11/29/20 8:10 am * Exam Date Time Procedure Performing Provider Status 11/28/20 1:30 PM Chest Portable Era Misa; Aut h (Verified) Notes: (Chest Portable) Reason For Exam: Line Placement RESULT: Chest Portable Chest Portable HISTORY: Line placement. CLINICAL QUESTION: Pneumothorax. COMPARISON: Chest radiograph 08/20/2019. CT 11/03/2018. FINDINGS: LINES AND TUBES: Dual-lead left subclavian pacer wires are intact. LUNGS AND PLEURA: Focal opacity in the right upper paramediastinal region along right paratracheal stripe. Bibasilar subsegmental atelectasis. No focal consolidation. No pneumothorax. No pleural effusion. HEART, MEDIASTINUM AND BRETT: Normal cardiac silhouette. Mild calcification of the aorta. Bioprosthetic aortic valve replacement and transcatheter aortic valve replacement. BONES AND SOFT TISSUES: Multilevel degenerative changes of the spine. No acute osseous abnormality. IMPRESSION: 1. No pneumothorax. 2. Focal opacity along right paratracheal stripe, likely artifactual, less likely airspace opacity.Follow-up PA and lateral chest radiograph is suggested as this is likely related to overlap of osseous structures in the right apex. A Yellow message has been communicated via the [employer] system on 11/28/2020 3:43 PM, Message ID [id number]. I have personally reviewed the images and I agree with this report. WSN: [id number] Ordering Physician: Ildefonso Guerrero Dictated By: Saturnino Warren MD Dictated Date/Time: 11/28/20 3:44 pm Reviewed By: Chelsea Damon MD Signed By: Chelsea Damon MD Signed Date/Time: 11/28/20 3:49 pm Transcribed By: WOJCIECH Transcribed Date/Time: 11/28/20 2:20 pm Vital Signs Most recent to oldest [Reference Range]: 1 2 3 Height 175 cm (11/29/20 7:25 AM) 175 cm (11/29/20 2:06 AM) 175 cm (11/28/20 7:35 PM) Weight 74.9 kg (11/29/20 5:44 AM) 79.0 kg (11/26/20 11:00 AM) 79.0 kg (11/23/20 11:29 PM) Oxygen Saturation [94-100 %] 98 % (11/29/20 7:25 AM) 98 % (11/29/20 2:06 AM) 98 % (11/28/20 7:35 PM) Pulse Rate [55-90 bpm] 78 bpm (11/29/20 7:25 AM) 60 bpm (11/29/20 2:06 AM) 62 bpm (11/28/20 7:35 PM) Body Mass Index [18.5-24.99] 25.8 *H* (11/26/20 11:00 AM) 25.8 *H* (11/23/20 11:29 PM) Blood Pressure [90-138/55-84 mm Hg] 117/58mm Hg (11/29/20 8:17 AM) 117/58mm Hg (11/29/20 7:25 AM) 115/56mm Hg (11/29/20 2:06 AM) Respiratory Rate [16-30 br/min] 20 br/min (11/29/20 7:25 AM) 20 br/min (11/29/20 2:06 AM) 20 br/min (11/28/20 7:35 PM) Temperature [96.8-100.4 DegF] 97.8 DegF (11/29/20 7:25 AM) 97.6 DegF (11/29/20 2:06 AM) 97.9 DegF (11/28/20 7:35 PM) Liters per Minute 4 L/min (11/23/20 12:16 PM) Mode of Delivery (Oxygen) Room air (11/29/20 7:25 AM) Room air (11/29/20 2:06 AM) Room air (11/28/20 7:35 PM) Blood pressure sites Arm, right (11/29/20 7:25 AM) Arm, right (11/29/20 2:06 AM) Arm, right (11/28/20 7:35 PM) Temperature Route Temporal (11/29/20 7:25 AM) Temporal (11/29/20 2:06 AM) Temporal (11/28/20 7:35 PM) Dry Weight 79.0 kg (11/26/20 11:00 AM) 79.0 kg (11/23/20 11:29 PM) Weight Obtained Via Bed scale (11/29/20 5:44 AM) Bed scale (11/23/20 11:29 PM) Dry Weight Obtained Via Bed scale (11/23/20 11:29 PM) Social History Social History Type Response Smoking Status Former smoker, quit more than 30 days ago entered on: 03/01/19 Sex
--- OUTSIDE RECORDS SUMMARY | 2023-10-05 10:03 | XMS_ITS | Continuity of Care Document ---
Author Name Unknown Organization [facility] Address [address] [place] [phone]- Care Team Providers Care Conventional Mortgage Underwriter Name Role Phone Charisma LENZ, Michael Boston Primary Care Physician Encounter [facility] [place] Date(s): 05/12/22 - 06/11/22 [facility] [address] [place] [phone]- Attending Physician: Ju Chavez Admitting Physician: Ju [...] Vaccine Date Status Refusal Reason SARS-CoV-2 mRNA (aevcezg-[id number]-fgowt) vax 1 04/29/22 Given influenza virus vaccine, [...] 11/07/98 Given 1Result Comment: [facility]-[id number] 2Result Comment: [facility]# [address] [phone] 3Location History: [place] 4Resconstance Comment: [06/30/2017] HIGH DOSE RECIEVED AT [facility] 5Resconstance Comment: [08/12/2015] Received at [facility] [place] 6Result Comment: Pfizer right deltoid lot [id number] exp 06-06-2021 [facility] 7Admin Note: GIVEN IN CLINIC [...] 06/03/22 11:47:00 EDT, Route to Pharmacy Electronically, [facility], 175, cm, 06/03/22 11:28:00 EDT, Height, 84.1, kg, 06/07/21 4:26:00 EDT,... Start Date: 06/03/22 Status: Ordered amLODIPine 5 mg oral tablet 1 tablet, By Mouth, Daily, # 90 tablet, 1 Refills, [facility], 175, cm, 02/09/22 10:10:00 EDT, [...] 90 tablet, 1 Refills, 05/09/22 6:15:00 EDT, [facility], 175, cm, 04/29/22 10:58:00 EDT, Height, 84.1, kg, 06/07/21 4:26:00 EDT, Dry Weight Start Date: 05/09/22 Status: Ordered Eliquis 2.5 mg oral tablet 1 tablet, By Mouth, 2 times a day, # 180 tablet, 9 Refills, [facility], 175, cm, 02/09/22 10:10:00 EDT, [...] 26 tablet, 0 Refills,Maintenance, 06/08/22 15:46:00 EDT, [facility]... Start Date: 06/08/22 Status: Ordered magnesium oxide 400 mg oral tablet 1 tablet, By Mouth, Daily, # 90 tablet, 1 Refills, [facility], 175, cm, 02/09/22 10:10:00 EDT, [...] Start Date: 05/05/22 Status: Ordered nystatin topical [id number] u/gm powder 1 application, Topically, 2 times [...] 90 capsule, 0 Refills, 05/13/22 12:10:00 EDT, [facility], 175, cm, 05/12/22 13:46:00 EDT, Height, 84.1, kg, 06/07/21 4:26:00 EDT, Dry Weight Start Date: 05/13/22 Status: Ordered sertraline 50 mg oral tablet 1 tablet = 50 mg, By Mouth, Daily, # 90 tablet, 1 Refills, Maintenance, 06/10/22 17:09:00 EDT, Tablet, [facility], Partial fill upon patient request if the prescription is for a schedule II opioid drug., 175, cm, 06/04/22 11:38:00... Start Date: 06/10/22 Status: Ordered tamsulosin 0.4 mg oral capsule 1, capsule, By Mouth, Daily at bedtime, # 90 capsule, Refills 1, Tot. Refills 1, 05/13/22 12:10:00 EDT, Route to Pharmacy Electronically, [facility], 175, cm, 05/12/22 13:46:00 EDT, Height, 84.1, kg, 06/07/21 4:26:00 EDT, Dry Weight Start Date: 05/13/22 Status: Ordered thiamine 100 mg oral tablet 100 mg, 1, tablet, By Mouth, Daily, # 30 tablet, Refills 11, Tot. Refills 11, Maintenance, 10/05/2116:07:00 EST, Route to Pharmacy Electronically, [facility], 175, cm, 09/23/21 12:36:00 EST, [...] Active Anxiety(Confirmed) Active Aortic valve prosthesis pres [id number] TAVR 2017(Confirmed) 2, 3 Active Arteriosclerotic heart [...] failur e) systolic(Confirmed) Active Encounter for monitoring rkis g-term proton pump inhibitor therapy(Confirmed) Active Elevated [...] 25 Active PAF (paroxysmal atrial fibri llation) [id number] 6(Confirmed) Active 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, 27, [...] PERICARDIAL VALVE [facility] [address] 41 graft 5CABG 2002 6Dr nini addressing 7nephrolithiasis 8to workup 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 12giardiam,o/p ,culture neg 13normal IGA/TTG 14workup 15urology addressing [id number] 17ortho 18chronic 19RFA 20djd xray 2-015 21xray [...]
--- OUTSIDE RECORDS SUMMARY | 2023-10-05 10:03 | XMS_ITS | Continuity of Care Document ---
Author Name Unknown Organization [facility] Address [address] [place] [phone]- Care Team Providers Care Pre Press Operator Name Role Phone Charisma LENZ, Michael Boston Primary Care Physician Encounter [facility] [place] Date(s): 10/20/20 - 12/25/20 [facility] [address] [place] [phone]- Attending Physician: Konstantin BROWN, Sussy Mercado Admitting [...] Bradford Comment: [06/30/2017] HIGH DOSE RECIEVED AT [facility] DR Lucero Comment: [08/12/2015] [place] [facility] [place]Admin Note: GIVEN IN CLINIC SHAM 5Admin [...] 10/20/20 11:45:00 EST, [id number], cm, 10/20/20 11:12:00 EST, Height, 80.6, kg, 08/05/20 17:31:00 EDT, Dry Weight Start Date: 10/20/20 Status: Ordered amLODIPine 5 mg oral tablet 5 mg, 1, tablet, By Mouth, Daily, # 30 tablet, Refills 3, Tot. Refills 3, Maintenance, 12/05/20 9:44:00 EST, Route to Pharmacy Electronically, [facility]/pharmacy #[id number], 175, cm, 12/05/20 8:32:00 EST, [...] 12/17/19 11:48:00 EST, Route to Pharmacy Electronically, [facility]/pharmacy #[id number], 176.5, cm, 12/17/19 11:35:00 EST, Height, 83.4, kg, 11/02/18 13:42:00 EST, Dry Weight Start Date: 12/17/19 Status: Ordered thiamine 100 mg oral tablet 100 mg, 1, tablet, By Mouth, Daily, # 30 tablet, Refills 11, Tot. 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, 27, 28 Active Restless legs syndrome (RLS)(Confirmed) Active Thrombocytopenia(Confirmed) 29, 30 06/22/09 Active Tricuspid insufficiency(Confirmed) Active Trochanteric bursitis of rig ht hip(Confirmed) Active Type 2 diabetes with nephropathy(Confirmed) Active Type 2 diabetes mellitus wit h peripheral angiopathy(Confirmed) Active 1educated about use epi pen /when call 2[employer] PERICARDIAL VALVE [facility] [address] 41 graft 5CABG 2002 6Dr nini addressing 7nephrolithiasis 8to workup 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 12giardiam,o/p ,culture neg 13normal IGA/TTG 14workup 15urology addressing [id number] 17ortho 18chronic 19RFA 20djd xray 2-015 21xray [...]
--- OUTSIDE RECORDS SUMMARY | 2023-10-05 10:04 | XMS_ITS | Continuity of Care Document ---
Author Name Unknown Organization [facility] Address [address] [place] [address]- Care Team Providers Care Pebble Mill Operator Name Role Phone Michael Zafar MD Primary [facility] Phys[id number] 07[facility]21/[facility] [address] [place] [address]- Discharge Disposition: A-D/C Home Attending Physician: Osiris Wang MD Admitting Physician: Osiris Wang MD Referring Physician: Michael Zafar MD Allergies, Adverse Reactions, Alerts Substance Reaction Severity Status lisinopril 1, 2 Active citalopram dizzy Active gabapentin unknown Active carvedilol 3 Active [...] Vaccine Date Status Refusal Reason SARS-CoV-2 mRNA ([id number]) vax 1 04/29/22 Given influenza virus vaccine, [...] Pneumococcal Vaccine (oldterm) 11/07/98 Given 1Result Comment: [facility]-[id number] 2Result Comment: [facility]# [address] [phone] 3Location History: [place] 4Result Comment: [06/30/2017] HIGH DOSE RECIEVED AT [facility] 5Result Comment: [08/12/2015] Received at [facility] [place] 6Result Comment: Pfizer right deltoid lot [id number] exp 06-06-2021 [facility] 7Admin [...] 06/03/22 11:47:00 EDT, Route to Pharmacy Electronically, [facility], 175, cm, 06/03/22 11:28:00 EDT, Height, 84.1, kg, 06/07/21 4:26:00 EDT,... Start Date: 06/03/22 Status: Ordered amLODIPine 5 mg oral tablet 1 tablet, By Mouth, Daily, # 90 tablet, 1 Refills, [facility], 175, cm, 02/09/22 10:10:00 [...] 90 tablet, 1 Refills, 05/09/22 6:15:00 EDT, [facility], 175, cm, 04/29/22 10:58:00 EDT, Height, 84.1, kg, 06/07/21 4:26:00 EDT, Dry Weight Start Date: 05/09/22 Status: Ordered Eliquis 2.5 mg oral tablet 1 tablet, By Mouth, 2 times a day, # 180 tablet, 9 Refills, [facility], 175, cm, 02/09/22 10:10:00 EDT, Height, 84.1, kg, 06/07/21 4:26:00 EDT, Dry Weight Start Date: 02/10/22 Status: Ordered LORazepam 1 mg oral tablet 1 tablet = 1 mg, By Mouth, Daily at bedtime, to fill on 07/15, 28 day script from here on out to keep patient on consistent weekday schedule, # 28 tablet, 0 Refills, Maintenance, 06/21/22 22:07:00 EDT, [facility], 175, cm,... Start Date: 06/21/22 Status: Ordered magnesium oxide 400 mg oral tablet 1 tablet, By Mouth, Daily, # 90 tablet, 1 Refills, [facility], 175, cm, 02/09/22 10:10:00 [...] Start Date: 05/05/22 Status: Ordered nystatin topical [id number] u/gm powder 1 application, Topically, 2 times a day, # 60 Gm, 5 Refills, Maintenance, 01/14/22 10:20:00 EST, Powder, [facility], Partial fill upon patient request if the prescription is for a schedule II opioid drug., 1 application Topically... Start Date: 01/14/22 Status: Ordered omeprazole 20 mg oral enteric coated capsule 1 capsule, By Mouth, Daily, # 90 capsule, 0 Refills, 05/13/22 12:10:00 EDT, [facility], 175, cm, 05/12/22 13:46:00 EDT, Height, 84.1, kg, 06/07/21 4:26:00 EDT, Dry Weight Start Date: 05/13/22 Status: Ordered sertraline 50 mg oral tablet 1 tablet = 50 mg, By Mouth, Daily, # 90 tablet, 1 Refills, Maintenance, 06/10/22 17:09:00 EDT, Tablet, [facility], Partial fill upon patient request if the prescription is for a schedule II opioid drug., 175, cm, 06/04/22 11:38:00... Start Date: 06/10/22 Status: Ordered tamsulosin 0.4 mg oral capsule 1, capsule, By Mouth, Daily at bedtime, # 90 capsule, Refills 1, Tot. Refills 1, 05/13/22 12:10:00 EDT, Route to Pharmacy Electronically, [facility], 175, cm, 05/12/22 13:46:00 EDT, Height, 84.1, kg, 06/07/21 4:26:00 EDT, Dry Weight Start Date: 05/13/22 Status: Ordered thiamine 100 mg oral tablet 100 mg, 1, tablet, By Mouth, Daily, # 30 tablet, Refills 11, Tot. 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 12giardiam,o/p ,culture neg 13normal IGA/TTG 14workup 15urology addressing [id number] 17ortho 18chronic 19RFA 20djd xray 2-015 21xray [...] Name: Charisma LENZ, Michael Boston Address: [address] [facility] [place], [place] [address]
--- OUTSIDE RECORDS SUMMARY | 2023-10-05 10:04 | XMS_ITS | Continuity of Care Document ---
Author Name Unknown Organization [facility] Tom lt Address [address] [place] [address]- Care Team Providers Care Linux Server Administrator Name Role Phone Ju DEPLOYMENT MANAGER, Giovana Chiu Primary Care Physician Encounter [facility] Date(s): 02/18/23 - 03/20/23 [facility] Adult [address] [place] [address]- Allergies, Adverse Reactions, Alerts Substance Reaction Severity [...] vaccine, inactivated 11/27/10 Give n SARS-CoV-2 mRNA ([id number]) vax 6 04/29/22 Given SARS-CoV-2 (COVID-19) mRNA [...] Pneumococcal Vaccine (oldterm) 11/07/98 Given 1Result Comment: [id number] 2Result Comment: [facility]# [address] [id number] 3Location History: [place] 4Result Comment: [06/30/2017] HIGH DOSE RECIEVED AT [facility] 5Result Comment: [08/12/2015] Received at [facility] 6Result Comment: [facility]-[id number] 7Result Comment: Pfizer right deltoid lot [id number] exp 06-06-[address] [facility] [place] 8Admin Note: GIVEN IN [facility]INIC [facility] 9Admin [...] 90 tablet, 1 Refills, 11/24/22 14:41:00 EST, [facility], 175, cm, 09/29/22 12:43:00 EST, Height, 84.1, kg, 06/07/21 4:26:00 EDT, Dry Weight Start Date: 11/24/22 Status: Ordered Eliquis 2.5 mg oral tablet 1 tablet, By Mouth, 2 times a day, # 180 tablet, 9 Refills, 02/18/23 17:26:00 EDT, [facility], 175, cm, 01/24/23 11:05:00 EDT, Height, 84.1, kg, 06/07/21 4:26:00 EDT, Dry Weight Start Date: 02/18/23 Status: Ordered furosemide 20 mg oral tablet 20 mg, 1, tablet, By Mouth, Daily, for 30 days, # 30 tablet, Refills 0, Tot. Refills 0, Acute 04/15/23 12:48:00 EDT, 03/16/23 12:48:00 EDT, Route to Pharmacy Electronically, [facility]/pharmacy #[id number], =, 175, cm, 03/16/23 12:17:00 EDT, Height, 84.1, kg, 08/0... Start Date: 03/16/23 Stop Date: 04/15/23 Status: Ordered LORazepam 1 mg oral tablet 1 tablet = 1 mg, By Mouth, Daily at bedtime, 11/09 - 03/08/2312/10 - 04/07/2301/07 delivery Sunday 05/06, start taking 05/07/23, # 30 tablet, 2 Refills, Maintenance, 02/18/23 10:24:00 EDT, [facility], 175, cm, 01/24/23 [...] Start Date: 01/24/23 Status: Ordered nystatin topical 070635 u/gm powder 1 application, Topically, 2 times [...] capsule, 0 Refills, Maintenance, 03/08/23 9:16:00 EDT, [facility], 175, cm, 01/24/23 11:05:00 EDT, Height, 84.1, kg, 06/07/21 4:26:00 EDT, Dry Weight Start Date: 03/08/23 Status: Ordered tamsulosin 0.4 mg oral capsule 1, capsule, By Mouth, Daily at bedtime, # 90 capsule, Refills 1, Tot. 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 11giardiam,o/p ,culture neg 12normal IGA/TTG 13workup [id number] 15chronic 16RFA 17djd xray 2-015 18xray 2004 [...] Associate Professional Member Role: PCP Address: Address: [address] [place] [id number]- Name: Adam Dennis MD Position: [facility] Cardiology MD Member Role: Lifetime Consulting Physician Address: Address: [address] [place] [id number]- Name: Julia Yu RN Position: [facility] [...] Persons Name: SARWAT HENRIQUEZ Address: home [address] [place] [address] Name: JOSEFINA CONTRERAS Address: home [address] [facility] [place] [address]
--- OUTSIDE RECORDS SUMMARY | 2023-10-05 10:04 | XMS_ITS | Continuity of Care Document ---
Author Name Unknown Organization [facility] Tom lt Address [address] [place] [address]- Care Team Providers Care Supervising Floorperson Name Role Phone Chraisma LENZ, Michael Boston Primary Care Physician Encounter [facility] R [id number] Date(s): 09/23/21 - 12/03/21 [facility] Adult [address] [place] [address]- Attending Physician: Michael Zafar MD Allergies, Adverse Reactions, Alerts Substance Reaction Severity Status lisinopril 1, 2 Active gabapentin unknown Active Remeron 3 dizziness Active Welchol muscle [...] 1Result Comment: [facility]# [address] [phone] 2Location History: [place] 3Rrenée Comment: [06/30/2017] HIGH DOSE RECIEVED AT [facility] 4Rrenée Comment: [08/12/2015] Received at [facility] 5Result Comment: Pfizer right deltoid lot [id number] exp 06-06-2021 [facility] 6Admin Note: GIVEN IN [...] Required Details, Route to Pharmacy Electronically, [facility]/pharmacy #[id number], 175, cm, 06/07/21 8:16:00 EDT, Height, [...] 3 Refills, Maintenance, 03/17/21 11:43:00 EDT, [id number], 175, cm, 02/06/21 10:40:00 EDT, Height, 79, [...] 30 tablet, 0 Refills, Maintenance, 12/03/21 12:37:00EST, [facility], 175, cm, 10/12/21 14:45:00 EST, Height, 84.1, kg, 06/07/21 4:26:00 EDT, Dry Weight Start Date: 12/03/21 Status: Ordered magnesium oxide 400 mg oral tablet 1 tablet = 400 mg, By Mouth, Daily, # 90 tablet, 3 Refills, Maintenance, 02/12/21 17:31:00 EDT, Tablet, [facility]/pharmacy #[id number], Partial fill upon patient request if [...] 90 capsule, 0 Refills, 09/01/21 11:50:00 EDT, [facility], 175, cm, 08/12/21 15:35:00 EDT, Height, 84.1, kg, 06/07/21 4:26:00 EDT, Dry Weight Start Date: 09/01/21 Status: Ordered predniSONE 50 mg oral tablet 1 tablet = 50 mg, By Mouth, Daily, in am with food, # 3 tablet, 0 Refills, Maintenance, 10/12/21 15:26:00 EST, Tablet, [facility]/pharmacy #[id number], Partial fill upon patient request if the prescription is fora schedule II opioid drug., 175, cm, 10/12/21 14:45... Start Date: 10/12/21 Status: Ordered tamsulosin 0.4 mg oral capsule 1, capsule, By Mouth, Daily at bedtime, # 90 capsule, Refills 1, Tot. Refills 0, Maintenance, 05/08/21 14:24:00 EDT, Route to Pharmacy Electronically, [id number], 175, cm, 04/29/21 10:36:00 EDT,Height, 79, kg, [...] Active Anxiety(Confirmed) Active Aortic valve prosthesis pres [id number] TAVR 2017(Confirmed) 2, 3 Active Arteriosclerotic heart [...] 25 Active PAF (paroxysmal atrial fibri llation) [id number] 6(Confirmed) Active 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, 27, 28 Active Restless legs syndrome (RLS)(Confirmed) Active Thrombocytopenia(Confirmed) 29, 30 06/22/09 Active Tricuspid insufficiency(Confirmed) Active Trochanteric bursitis of rig ht hip(Confirmed) Active Type 2 diabetes with nephropathy(Confirmed) Active Type 2 diabetes mellitus wit h peripheral angiopathy(Confirmed) Active 1educated about use epi pen /when call 2CARPENTIER PERICARDIAL VALVE [facility] [address] 41 graft 5CABG 2002 6Dr nini addressing 7nephrolithiasis 8to workup 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 12giardiam,o/p ,culture neg 13normal IGA/TTG 14workup 15urology addressing [id number] 17ortho 18chronic 19RFA 20djd xray 2-015 21xray [...]
--- OUTSIDE RECORDS SUMMARY | 2023-10-05 10:04 | XMS_ITS | Continuity of Care Document ---
Author Name Unknown Organization [facility] Tom [facility] Address [address] [place] [address]- Care Team Providers Care Nutrition Club Ambassador Name Role Phone Charisma LENZ, Michael Boston Primary Care Physician Encounter [facility] Date(s): 12/25/19 - 01/04/20 [facility] Adult [address] [place] [address]- [facility] Attending Physician: Admtr, Ar8 Allergies, Adverse Reactions, [...] 3Rrenée Comment: [06/30/2017] HIGH DOSE RECIEVED AT [facility] 4Rrenée Comment: [08/12/2015] [facility] [...] Mouth, 2 times a day, LOT # [id number] EXP 12/28 X8 BOX, # 60 tablet, [...] Gm, 0 Refills, Maintenance, 10/10/19 11:35:05 EST, [place], 1 sprays Nares, Both 2 times [...] Required Details, Route to Pharmacy Electronically, [facility]/... Start Date: 12/17/19 Status: Ordered LIDODERM PATCH [...] Refills, Maintenance, 12/17/19 11:48:00 EST, Tablet, [facility]/pharmacy #[id number], Rx resent from 11/03/16., 176.5, cm, 12/17/19 11:35:00 EST, Height, 83.4, kg, 11/02/18 13:42:00 EST, Dry Weight Start Date: 12/17/19 Status: Ordered LORazepam 2 mg oral tablet 1 tablet = 2 mg, By Mouth, 2 times a day, # 60 tablet, 0 Refills, Maintenance, 12/17/19 11:46:00 EST, [facility]/pharmacy #[id number], 176.5, cm, 12/17/19 11:35:00 EST, Height, 83.4, kg, 11/02/18 13:42:00 EST, Dry Weight Start Date: 12/17/19 Status: Ordered metoprolol 25 mg oral tablet 25 mg, 1, tablet, By Mouth, Daily, # 90 tablet, Refills 3, Tot. Refills 3, Maintenance, 12/18/19 13:53:00 EST, Route to Pharmacy Electronically, [facility]/pharmacy #[id number], succinate, 176.5, cm, 12/17/19 11:35:00 EST, Height, 83.4, kg, 11/02/18 13:42:00 EST,... Start Date: 12/18/19 Status: Ordered metoprolol 25 mg oral tablet 25 mg, 1, tablet, By Mouth, Daily, for 90 days, # 90 tablet, Refills 3, Tot. Refills 3, Hard Stop 10/30/20 12:58:00 EST, 11/05/19 12:58:00 EST, [id number], 176.5, cm, 10/23/19 15:57:00 EST, Height, 83.4, kg, 1... Start Date: 11/05/19 Stop Date: 10/30/20 Status: Ordered omeprazole 20 mg oral delayed release tablet 1 tablet = 20 mg, By Mouth, Daily, # 90 tablet, 3 Refills, Maintenance, 12/17/19 11:48:00 EST, EC Tablet, [id number], 176.5, cm, 12/17/19 11:35:00 EST, Height, 83.4, kg, 11/02/18 13:42:00 EST, Dry Weight Start Date: 12/17/19 Status: Ordered tamsulosin 0.4 mg oral capsule 0.4 mg, By Mouth, Daily at bedtime, # 90 capsule, Refills 3, Tot. Refills 3, Maintenance, 12/17/19 11:48:00 EST, [id number], 176.5, cm, 12/17/19 11:35:00 EST, Height, [...] Active Anxiety(Confirmed) Active Aortic valve prosthesis pres [id number] TAVR 2017(Confirmed) 2, 3 Active Arteriosclerotic heart [...] 23 Active PAF (paroxysmal atrial fibri llation) [id number] 6(Confirmed) Active Pituitary microadenoma(Confi rmed) 24, 25, 26 Active Restless legs syndrome (RLS)(Confirmed) Active Thrombocytopenia(Confirmed) 27, 28 06/22/09 Active Tricuspid insufficiency(Confirmed) Active Trochanteric bursitis of rig ht hip(Confirmed) Active Type 2 diabetes with nephropathy(Confirmed) Active Type 2 diabetes mellitus wit h peripheral angiopathy(Confirmed) Active 1educated about use epi pen /when call 2CARPENTIER PERICARDIAL VALVE [facility] [address] 41 graft 5CABG 2002 6Dr nini addressing 7nephrolithiasis 8to workup 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 12urology addressing [id number] 14ortho 15chronic 16RFA 17djd xray 2-015 18xray 2004 LS arthritis etc 19Zung=mod depression 20BCG 21carcinoma in situ 22saw ortho 23s aw ortho;injected SEVERE pain 24endocrinology addressing 25MRI pti ;refer endo 26mri c spine 2014 27per hematology ? 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;to follow 28workup in progress Procedures Procedure Date Related Diagnosis [...]
--- OUTSIDE RECORDS SUMMARY | 2023-10-05 10:04 | XMS_ITS | Continuity of Care Document ---
Author Name Unknown Organization [facility] Tom [facility] Address [address] [place] [address]- Care Team Providers Care Material Cutter Name Role Phone Charisma LENZ, Michael Boston Primary Care Physician [phone] [place] [facility] Date(s): 08/05/20 - 09/04/20 [facility] Adult [address] [place] [address]- [facility] Allergies, Adverse Reactions, Alerts Substance Reaction [...] Bradford Comment: [06/30/2017] HIGH DOSE RECIEVED AT [facility] DR Lucero Comment: [08/12/2015] Received at [facility] 4Admin Note: GIVEN IN [...] 2 times a day, # 6 LOT [id number] EXP 2-21, # 180 tablet, 0 Refills, Maintenance, 06/13/20 11:45:00 EDT, Dry Weight Start Date: 06/13/20 Status: Ordered apixaban 2.5 mg oral tablet 1 tablet = 2.5 mg, By Mouth, 2 times a day, # 180 tablet, 3 Refills, Maintenance, 03/05/20 13:50:00EDT, [facility]/pharmacy #[id number], 176.5, cm, 12/25/19 15:48:00 EST, [...] Gm, 0 Refills, Maintenance, 10/10/19 11:35:05 EST, [place], 1 sprays Nares, Both 2 times a [...] 0 Refills, Maintenance, 06/16/20 13:49:00 EDT, [facility]/pharmacy #[id number], 176.5, cm, 06/13/20 12:04:00 EDT, [...] 9:41:00 EDT, Route to Pharmacy Electronically, [facility]/pharmacy #[id number], succinate, 176.5, cm, 06/13/20 12:04:00 EDT, Height, 83.4, kg, 11/02/18 13:42:00 EST, D... Start Date: 06/16/20 Stop Date: 06/11/21 Status: Ordered omeprazole 20 mg oral delayed release tablet 1 tablet = 20 mg, By Mouth, Daily, # 90 tablet, 3 Refills, Maintenance, 12/17/19 11:48:00 EST, EC Tablet, [facility]/pharmacy #[id number], 176.5, cm, 12/17/19 11:35:00 EST, Height, 83.4, kg, 11/02/18 13:42:00 EST, Dry Weight Start Date: 12/17/19 Status: Ordered tamsulosin 0.4 mg oral capsule 0.4 mg, By Mouth, Daily at bedtime, # 90 capsule, Refills 3, Tot. Refills 3, Maintenance, 12/17/19 11:48:00 EST, Route to Pharmacy Electronically, [facility]/pharmacy #[id number], 176.5, cm, 12/17/19 11:35:00 EST, [...] Active Anxiety(Confirmed) Active Aortic valve prosthesis pres [id number] TAVR 2018(Confirmed) 2, 3 Active Arteriosclerotic heart [...] 25 Active PAF (paroxysmal atrial fibri llation) [id number] 6(Confirmed) Active 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, 27, 28 Active Restless legs syndrome (RLS)(Confirmed) Active Thrombocytopenia(Confirmed) 29, 30 06/22/09 Active Tricuspid insufficiency(Confirmed) Active Trochanteric bursitis of rig ht hip(Confirmed) Active Type 2 diabetes with nephropathy(Confirmed) Active Type 2 diabetes mellitus wit h peripheral angiopathy(Confirmed) Active 1educated about use epi pen /when call 2CARPENTIER PERICARDIAL VALVE [facility] [address] 41 graft 5CABG 2002 6Dr nini addressing 7nephrolithiasis 8to workup 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 12giardiam,o/p ,culture neg 13normal IGA/TTG 14workup 15urology addressing [id number] 17ortho 18chronic 19RFA 20djd xray 2-015 21xray [...]
[2023-10-05 10:26] LABS: MANUAL DIFF FLAG NO
[2023-10-05 10:28] LABS: Basophils Percent Auto 0.5 % (0-2); Eosinophils Absolute Auto 0.2 X10*3/uL (0.0-0.4); Eosinophils Percent Auto 1.9 % (0-4); Hematocrit 37.6 % (42.0-52.0); Hemoglobin 12.6 g/dl (14.0-18.0); Imm Gran Abs Auto 0.04 X10*3/uL (0.00-0.03); Imm Gran Pct Auto 0.5 % (0.0-0.4); Lymphocytes Absolute Auto 1.7 X10*3/uL (1.2-4.9); Lymphocytes Percent Auto 20.7 % (20-40); Mean Corpuscular HGB Conc 33.5 g/dl (31.0-36.0); Mean Corpuscular Volume 92.6 fL (80.0-98.0); Mean Platelet Volume 9.9 fL (9.4-12.4); Monocytes Absolute Auto 1.1 X10*3/uL (0.1-1.2); Monocytes Percent Auto 12.7 % (2-11); Neutrophils Absolute Auto 5.3 x10*3/uL (2.0-8.3); Neutrophils Percent Auto 63.7 % (45-73); Platelet Count 176 X10*3/uL (160-400); Red Blood Count 4.06 X10*6/uL (4.60-5.80); Red Cell Distribution Width 13.4 % (11.0-16.0); White Blood Count 8.3 X10*3/uL (4.8-10.8)
[2023-10-05 10:40] LABS: Anion Gap 13 (12-20); Blood Urea Nitrogen 12 mg/dL (9-16); Carbon Dioxide 28 mmol/L (22-29); Chloride 99 mmol/L (96-108); Estimated Glomerular Filt Rate > 60; Glucose Random 106 mg/dL (60-115); Potassium 3.2 mmol/L (3.3-5.1); Sodium 137 mmol/L (135-145)
[2023-10-05] MEDS: Potassium Chloride Packet 20 MEQ PACKET 40 MEQ PO (10:56)
--- NOTE | 2023-10-05 11:18 | PC.NURSE ---
Patient continues to denies SI, medicated per mar
[2023-10-05 14:21] LABS: Appearance Urine Clear; Color Urine Dark Yellow; Glucose Urine UA Negative (Negative); Leukocyte Esterase Urine Trace (Negative); Nitrite Urine Negative (Negative); UMIC TRIGGER UACC YES; Urine Blood Negative (Negative); Urine Ketones Trace mg/dL (Negative); Urine Protein 30 (1+) mg/dL (Neg-Trace)
[2023-10-05 14:24] LABS: Bacteria Urine None Seen (None Seen); Squamous Epithelial Cell Urine 0-2 /HPF (0-2); WBC Urine 0-5 /HPF (0-5)
--- NOTE | 2023-10-05 19:08 | PC.NURSE ---
this rn assumed care of pt. pt sleeping on stretcher comfortably, no acute distress noted.
--- NOTE | 2023-10-05 19:48 | PC.NURSE ---
pt confused and trying to get out of bed at this time, pt repositioned and changed in bed. camera will be placed, non slip socks in place.
--- NOTE | 2023-10-05 20:08 | PC.NURSE ---
camera in place on pt.
[2023-10-05] MEDS: LORazepam 2 MG/ML VIAL IM (20:21)
[2023-10-05] MEDS: OLANZapine 10 MG VIAL 5 MG IM (20:21)
[2023-10-05] MEDS: diphenhydrAMINE HCL 50 MG/ML VIAL IM (20:21)
--- NOTE | 2023-10-05 20:23 | PC.NURSE ---
pt refusing to take po prn. pt confused/severely agitated climbing out of bed, swearing, and swinging at staff. attempt to reposition multiple times, verbal reassurance, gave hospital bed for comfort, camera at bedside. pt continues to try getting oob reporting he needs to find his /make a phone call to [facility]. sats 96% on RA. vss.
--- NOTE | 2023-10-05 20:28 | PC.NURSE ---
pt agitated, confused and shouting at this time. this RN IM pt, pt tolerated well, pt placed on monitor normal sinus on tele 92-95. camera in place. 15 minute checks.
--- NOTE | 2023-10-05 20:36 | PC.NURSE ---
pt confused disoriented; still remains slightly agitated attempting to make calls on cell phone. vss. resp even and unlabored sats 95% on RA. warm blanket given. camera at bedside.
--- NOTE | 2023-10-05 21:00 | PC.NURSE ---
pt confused and agitated at this time, no acute distress, vss.
--- NOTE | 2023-10-05 21:27 | PC.NURSE ---
hour of chemical restraints complete, pt calm, cooperative but confused. camera in place, fall risk precautions in place. provider aware.
--- NOTE | 2023-10-05 22:14 | PC.NURSE ---
report given to Jesse in overflow.
--- NOTE | 2023-10-05 22:19 | PC.NURSE ---
pt transferred over to over flow.
--- NOTE | 2023-10-05 22:22 | MHC.EDTECH ---
Patient just came to overflow from the main emergency department ,Patient is restless ,RN Jesse aware .
--- NOTE | 2023-10-05 23:47 | PC.NURSE ---
pt confused, unable to redirect , camera in use
--- NOTE | 2023-10-06 | ECG_ITS ---
Test Reason : qtc Blood Pressure : / mmHG Vent. Rate : 065 BPM Atrial Rate : 000 BPM P-R Int : 000 ms QRS Dur : 170 ms QT Int : 458 ms P-R-T Axes : 000 -14 119 degrees QTc Int : 476 ms Wide QRS rhythm Left bundle branch block Abnormal ECG When compared with ECG of 23-OCT-2021 17:19, Wide QRS rhythm has replaced Electronic ventricular pacemaker Referred By: Fozia Joyce Electronically Signed By:
--- NOTE | 2023-10-06 05:34 | PC.NURSE ---
pt combative with staff, unable to obtain VS
[2023-10-06 05:37] VITALS: RESP 15
--- NOTE | 2023-10-06 05:38 | MHC.EDTECH ---
THIS PCT IS UNABLE TO OBTAIN FULL SETS OF VITALS , PATIENT VERY AGITATED AND COMBATIVE TOWARD STAFF ,LAY BLOOD AWARE .
--- NOTE | 2023-10-06 06:08 | PC.NURSE ---
pt awake, did not sleep during the night
--- NOTE | 2023-10-06 06:17 | PC.NURSE ---
PT took off [place] [facility]
--- NOTE | 2023-10-06 08:13 | MHC.CM.ED ---
Late entry from 10/05 at 12pm: Received case management consult from Dr Diallo. Patient is a STR patient of [facility]. Patient was at [facility] from 09/06-09/13 due to a fall with patellar fracture. Met with patient and friend/HCP, Arleth in regards to discharge planning. Patient was living alone prior to fall. Patient is a . Has children that he is estranged from. Patient doesn't like the food at [facility] and doesn't feel he gets enough rehab. Arleth had a meeting with the physical therapy department on Tuesday. Patient has been refusing rehab at times. Arleth also feels patient wouldn't be happy at any facility he would be at. Arleth requested referral to [facility] only because it's closer to her. Referral made via [facility]. [facility] does not have a bed. Care team assessment is pending. If cleared by Care Team, anticipate patient will return to [facility]. Continue to monitor for d/c needs.
[2023-10-06] MEDS: Aspirin Enteric Coated 81 MG TABLET.DR PO (10:17)
[2023-10-06] MEDS: Furosemide 20 MG TABLET PO (10:17)
[2023-10-06] MEDS: Apixaban 2.5 MG TABLET PO ×2 (10:17→20:38)
[2023-10-06] MEDS: hydrOXYzine HCL 25 MG TABLET PO (10:17)
[2023-10-06 12:40] LABS: Alanine Aminotransferase 13 U/L (0-40); Albumin Level 3.3 g/dL (3.5-5.0); Alkaline Phosphatase 93 U/L (39-117); Anion Gap 15 (12-20); Aspartate Amino Transferase 22 U/L (5-37); Bilirubin Total 3.7 mg/dL (0.0-1.0); Blood Urea Nitrogen 13 mg/dL (9-16); Calcium 9.4 mg/dL (8.4-10.2); Carbon Dioxide 26 mmol/L (22-29); Chloride 101 mmol/L (96-108); Creatinine Clr Calc Pharmacy 53.8; Estimated Glomerular Filt Rate > 60; Glucose Random 108 mg/dL (60-115); Potassium 3.6 mmol/L (3.3-5.1); Sodium 138 mmol/L (135-145); Total Protein 7.5 g/dL (6.5-8.0)
--- NOTE | 2023-10-06 13:27 | PM.PSYCN ---
History of Present Illness Date of Service: 10/06/2023 Chief Complaint: SI Reason for Consult: capacity Requesting physician: Janel Jackson Discussed with referring provider: Yes Sources of Information: patient interviewed, chart reviewed and crisis/core team assessment reviewed HPI Narrative: Mr. Whitten is an 88 year-old male who was sent from [facility] where he was receiving rehab post left broken patella. Per ED report, pt had made statements related to having tried to hand self with bed sheets. He did not have any wright. In the ED, pt continued to present as confused not oriented to situation or place. Labs included: cbc chronic normocytic anemia, BMP hypokalemia 3.2, repeat today 3.6.UA with +protein, trace of leukocyte and RBC (can repeat with microscopic). Pt seen in the ED. He was combative last night requiring olanzapine 5mg IM and ativan 2mg IM. Pt is alert, awake when seen by this teletypewriter installer. Not somnolent. He is mostly mumbling, difficult to follow. He does not know where he is. Or why he is here. He points at wall, asking for woman. His attention is poor. [facility] Medical History PAF (paroxysmal atrial fibrillation) NICM (nonischemic cardiomyopathy) Diabetes Pacemaker Surgical History History of right-sided carotid endarterectomy Hx of CABG Status post transcatheter aortic valve replacement (TAVR) using bioprosthesis Diagnostics Vital Signs (24Hr): Vital Signs - 24 hr 10/05/23 14:12 10/05/23 20:21 10/05/23 20:36 Temperature 97.9 F Pulse Rate 71 81 82 Respiratory Rate 15 18 17 Blood Pressure 125/91 H 138/65 154/66 H Pulse Oximetry 98 95 95 Oxygen Delivery Method Room Air Room Air Room Air 10/05/23 20:51 10/05/23 21:06 10/05/23 21:21 Temperature Pulse Rate 88 72 80 Respiratory Rate 18 16 18 Blood Pressure 137/67 148/67 H 141/50 H Pulse Oximetry 96 96 95 Oxygen Delivery Method Room Air Room Air Room Air 10/06/23 05:37 Temperature Pulse Rate Respiratory Rate 15 Blood Pressure Pulse Oximetry Oxygen Delivery Method BMI result Body Mass Index 26.9 Labs 10/05/23 10:23 10/06/23 12:07 Labs: Laboratory Results - last 48 hr 10/05/23 10/05/23 10/06/23 10: 14:16 12:07 WBC 8.3 RBC 4.06 L Hgb 12.6 L Hct 37.6 L MCV 92.6 MCH 31.0 MCHC 33.5 RDW 13.4 Plt Count 176 D MPV 9.9 Immature Gran % (Auto) 0.5 H Neut % (Auto) 63.7 Lymph % (Auto) 20.7 Harris % (Auto) 12.7 H Eos % (Auto) 1.9 Baso % (Auto) 0.5 Lymph # (Auto) 1.7 Harris # (Auto) 1.1 Eos # (Auto) 0.2 Baso # (Auto) 0.0 Abs Immat Gran (auto) 0.04 H Absolute Neuts (auto) 5.3 Absolute Nucleated RBC 0.000 Nucleated RBC % (auto) 0.0 Hold Purple Top SEE NOTE Sodium 137 138 Potassium 3.2 L 3.6 Chloride 99 101 Carbon Dioxide 28 26 Anion Gap 13 15 BUN 12 13 Creatinine 1.01 0.92 Estim Creat Clear Calc 49.0 53.8 Estimated GFR > 60 > 60 Random Glucose 106 108 Calcium 9.0 9.4 Total Bilirubin 3.7 H AST 22 ALT 13 Alkaline Phosphatase 93 Total Protein 7.5 Albumin 3.3 L Urine Color Dark Yellow Urine Appearance Clear Urine pH 6.0 Ur Specific [place] 1.020 Urine Protein 30 (1+) H Urine Glucose (UA) Negative Urine Ketones Trace Urine Blood Negative Urine Nitrite Negative Ur Leukocyte Esterase Trace H Urine RBC 3-5 H Urine WBC 0-5 Ur Squamous Epith Cells 0-2 Urine Bacteria None Seen Hyaline Casts 3-5 Mental Status Exam Mental Status Exam Narrative: Appearance: wearing only briefs, as he is taking clothes off, in NAD Behavior: indifferent/confused Psychomotor: no agitation or retardation noted Speech: mumbles, difficult to understand, spontaneous TP: disorganized TC: asking for a woman VH/AH: not overt psychosis. Delusions: no overt, comfabulation Insight/judgment: impaired x 2. memory/cog: alert, not oriented to place, situation, month or year. poor attention Medications Medications Current Medications Allopurinol (Allopurinol 100 Mg Tablet) 200 mg PO DAILY [facility] Last Admin: 10/06/23 10:20 Dose: Not Given Amlodipine Besylate (Amlodipine Besylate 5 Mg Tablet) 5 mg PO BEDTIME [facility]; Protocol Apixaban (Apixaban 2.5 Mg Tablet) 2.5 mg PO BID [facility] Last Admin: 10/06/23 10:17 Dose: 2.5 mg Aspirin (Aspirin Enteric Coated 81 Mg Tablet.) 81 mg PO DAILY [facility] Last Admin: 10/06/23 10:17 Dose: 81 mg Atorvastatin Calcium (Atorvastatin Calcium 40 Mg Tablet) 40 mg PO BEDTIME [facility] Folic Acid (Folic Acid 1 Mg Tablet) 1 mg PO DAILY [facility] Last Admin: 10/06/23 10:21 Dose: Not Given Furosemide (Furosemide 20 Mg Tablet) 20 mg PO DAILY [facility]; Protocol Last Admin: 10/06/23 10:17 Dose: 20 mg Hydroxyzine HCl (Hydroxyzine Hcl 25 Mg Tablet) 25 mg PO TID PRN PRN Reason: Anxiety Last Admin: 10/06/23 10:17 Dose: 25 mg Lorazepam (Lorazepam 1 Mg Tablet) 1 mg PO BEDTIME [facility] Magnesium Oxide (Magnesium Oxide 400 Mg Tablet) 400 mg PO DAILY [facility] Last Admin: 10/06/23 10:21 Dose: Not Given Melatonin (Melatonin 3 Mg Tablet) 3 mg PO BEDTIME PRN PRN Reason: Insomnia Multivitamins/Vitamin C (Multivitamin Tablet) 1 tab PO DAILY [facility] Last Admin: 10/06/23 10:21 Dose: Not Given Nystatin (Nystatin Powder 15 Gm Bottle) 1 appl TOPICAL BID [facility]; Protocol Last Admin: 10/06/23 10:21 Dose: Not Given Olanzapine (Olanzapine Odt 10 Mg Tab.Rapdis) 5 mg TRANSLINGU BID PRN PRN Reason: anxiety/restlessness Omeprazole (Omeprazole 20 Mg Capsule.) 20 mg PO DAILY@0630 [facility] Last Admin: 10/06/23 10:21 Dose: Not Given Oxycodone HCl (Oxycodone Hcl Immed Release 5 Mg Tablet) 5 mg PO Q6H PRN PRN Reason: Pain (Scale Score 4-6) Polyethylene Glycol (Polyethylene Glycol 3350 17 Gm Powd.Pack) 17 gm PO BID [facility] Last Admin: 10/06/23 10:21 Dose: Not Given Pyridoxine HCl (Pyridoxine Hcl (Vitamin B6) 50 Mg Tablet) 50 mg PO DAILY [facility] Senna (Sennosides 8.6 Mg Tablet) 8.6 mg PO DAILY [facility] Last Admin: 10/06/23 10:21 Dose: Not Given Tamsulosin HCl (Tamsulosin Hcl 0.4 Mg Capsule) 0.4 mg PO BEDTIME [facility] Thiamine HCl (Thiamine Hcl 100 Mg Tablet) 100 mg PO DAILY [facility] Last Admin: 10/06/23 10:21 Dose: Not Given Vitamin D (Cholecalciferol (Vitamin D3) 25 Mcg Tablet) 50 mcg PO DAILY [facility] Last Admin: 10/06/23 10:20 Dose: Not Given Allergies Allergies Allergy/AdvReac Type Severity Reaction Status Date / Time acetaminophen [From Percocet] Allergy Unknown Verified 11/10/21 13:29 bee pollen [bee stings] Allergy Unknown Verified 11/10/21 13:29 carvedilol Allergy Unknown Verified 11/10/21 13:29 citalopram Allergy Unknown Verified 11/10/21 13:29 colesevelam [From WelChol] Allergy Unknown Verified 11/10/21 13:29 fluoxetine Allergy Unknown Verified 11/10/21 13:29 gabapentin Allergy Unresponsiv Verified 11/10/21 13:29 e lactose Allergy Unknown Verified 11/10/21 13:29 lisinopril Allergy Unknown Verified 11/10/21 13:29 mirtazapine [From Remeron] Allergy Unknown Verified 11/10/21 13:29 oxycodone [From Percocet] Allergy Unknown Verified 11/10/21 13:29 venlafaxine [From Effexor] Allergy Unknown Verified 11/10/21 13:29 Assessment & Plan Assessment & Plan (1) Delirium due to another medical condition: Status: Acute Code(s): F05 - Delirium due to known physiological condition Plan Mr. Whitten is an 88 year-old male brought via EMS from [facility]. He currently presents with delirium, superimposed on dementia. Pt is not oriented to place, situation. He is not able to verbalize understanding of medical conditions or rational for treatment. PLAN 1. Mr. Whitten lacks capacity to make medical decisions. Recommend HCP be invoked by physician. 2. Can use seroquel 25mg po BID with seroquel 25mg po q6h prn agitation, continue to monitor EKG, Qtc <500ms, K>4, Mg>2. Total time managing care of this patient today ____ minutes.
[2023-10-06 14:00] VITALS: BP 157/69; PULSE 64; RESP 16; TEMP 36.6; O2SAT 96
--- NOTE | 2023-10-06 14:48 | PC.NURSE ---
Patient alert and oriented to self only. Patient restless, reaching for objects not there, yelling out. Patient answers minimal questions. Lung sounds clear, +bowel sounds. Patient did not void this shift, bladder scanned 459. Patient denying need to void, attempt to void but unsuccessful. Renetta GUADALUPE made aware, per PA patient refusing to void yesterday, given patient more time, if unable will consider straight cath. Patient took meds crushed with applesauce, did not eat breakfast, ate about 25% of lunch. Call real, bed alarm, and telesitter in place. All needs met.
--- NOTE | 2023-10-06 16:06 | MHC.CM.ED ---
Patient remains in ER overflow. Care Team assessment completed. Psych consult for capacity recommended. Patient evaluated by Fozia, annual campaign manager. Fozia does not feel patient has capacity to make his own decisions. Med recommendations have also been made. Anticpate patient will return to [facility] when delirium clears. Arleth, friend/HCP, made aware. Continue to monitor for d/c needs.
[2023-10-06] MEDS: OLANZapine ODT 10 MG TAB.RAPDIS 5 MG TRANSLINGU (16:12)
[2023-10-06] MEDS: oxyCODONE HCl Immed Release 5 MG TABLET PO (18:06)
--- NOTE | 2023-10-06 18:43 | PC.NURSE ---
care assumed at 1500, pt resting quietly in bed. pt has not voided this shift, bladder scan preformed at 1840 for 521mL, provider notified. no new orders at this time. pt medicated per mar, increasing restlessness and appearing to be in pain. unable to comprehend/answer questions at this time. rambling nonsensical things. camer and bed alarm in place, call real within reach.
--- NOTE | 2023-10-06 19:47 | PC.NURSE ---
I assumed care of the pt at 1900. Per daytime nurse, pt has been restless all day and has not voided but had 500mL in his bladder. RN had been speaking with ED PA who stated to wait a little bit longer and pt may void on his own. Pt is very confused and restless in bed, moving his arms and legs and occasionally yelling out. Camera is set up on the pt and he is waiting placement at this time.
[2023-10-06] MEDS: Tamsulosin HCL 0.4 MG CAPSULE PO (20:38)
[2023-10-06] MEDS: QUEtiapine Fumarate 25 MG TABLET PO (20:38)
[2023-10-06] MEDS: polyethylene glycoL 3350 17 GM POWD.PACK PO (20:38)
[2023-10-06] MEDS: Atorvastatin Calcium 40 MG TABLET PO (20:38)
[2023-10-06] MEDS: amLODIPine Besylate 5 MG TABLET PO (20:38)
[2023-10-06] MEDS: Nystatin Powder 15 GM BOTTLE 1 APPL TOPICAL (21:37)
[2023-10-06 21:52] VITALS: BP 156/67; PULSE 76; RESP 16; TEMP 36.7; O2SAT 95
[2023-10-07 06:00] VITALS: RESP 14
--- NOTE | 2023-10-07 09:09 | PC.NURSE ---
pt requires meds crushed in pudding/apple sauce, pt has enteric coated aspirin in JAN, erconnect sent to sheridan GUADALUPE for med change to safely administer pt med.
[2023-10-07 09:25] VITALS: BP 127/64; PULSE 70; RESP 14; TEMP 35.9; O2SAT 93
[2023-10-07] MEDS: QUEtiapine Fumarate 25 MG TABLET PO (09:26)
[2023-10-07] MEDS: allopurinoL 100 MG TABLET 200 MG PO (09:26)
[2023-10-07] MEDS: Cholecalciferol (Vitamin D3) 25 MCG TABLET 50 MCG PO (09:26)
[2023-10-07] MEDS: Magnesium Oxide 400 MG TABLET PO (09:26)
[2023-10-07] MEDS: Apixaban 2.5 MG TABLET PO ×2 (09:26→20:54)
[2023-10-07] MEDS: Thiamine HCL 100 MG TABLET PO (09:26)
[2023-10-07] MEDS: Multivitamin TABLET 1 TAB PO (09:26)
[2023-10-07] MEDS: Omeprazole 20 MG CAPSULE.DR PO (09:27)
[2023-10-07] MEDS: Sennosides 8.6 MG TABLET PO (09:27)
[2023-10-07] MEDS: Furosemide 20 MG TABLET PO (09:27)
[2023-10-07] MEDS: Folic Acid 1 MG TABLET PO (09:27)
[2023-10-07] MEDS: Aspirin 81 MG TAB.CHEW PO (09:29)
[2023-10-07 14:00] VITALS: BP 133/52; PULSE 69; RESP 20; TEMP 36.6; O2SAT 94
--- NOTE | 2023-10-07 14:05 | PC.NURSE ---
pt resting comfortably/resting w/ eyes closed in no apparent distress at this time. provider bedside speaking w/ pt's HCP during this time - provider states that she will reach out to seamus (educational psychology teacher) in regards to changing medication/possibly changing dose. HCP aware of plan of care at this time. bed alarm turned on/camera in place for safety precautions.
--- NOTE | 2023-10-07 14:06 | ED_ITS ---
HPI - General Adult General Chief complaint: General Medical Stated complaint: SI Time Seen by Provider: 10/05/23 09:07 Source: patient and EMS Mode of arrival: EMS Limitations: no limitations Related Data Home Medications Medication Instructions Recorded Confirmed allopurinol 100 mg tablet 200 mg PO DAILY 10/23/21 10/05/23 amlodipine 5 mg tablet 5 mg PO BEDTIME 10/23/21 10/05/23 apixaban 2.5 mg tablet (Eliquis) 2.5 mg PO BID 10/23/21 10/05/23 aspirin 81 mg tablet,delayed 81 mg PO DAILY 10/23/21 10/05/23 release atorvastatin 40 mg tablet 40 mg PO BEDTIME 10/23/21 10/05/23 cholecalciferol (vitamin D3) 50 50 mcg PO DAILY 10/23/21 10/05/23 mcg (2,000 unit) tablet lorazepam 1 mg tablet 1 mg PO BEDTIME 10/23/21 10/05/23 omeprazole 20 mg capsule,delayed 20 mg PO DAILY 10/23/21 10/05/23 release tamsulosin 0.4 mg capsule 0.4 mg PO BEDTIME 10/23/21 10/05/23 thiamine HCl (vitamin B1) 100 mg 100 mg PO DAILY 10/23/21 10/05/23 tablet folic acid 1 mg tablet 1 mg PO DAILY 10/05/23 10/05/23 furosemide 20 mg tablet 20 mg PO DAILY 10/05/23 10/05/23 hydroxyzine HCl 25 mg tablet 25 mg PO TID PRN Anxiety 10/05/23 10/05/23 magnesium oxide 400 mg (241.3 mg 400 mg DAILY 10/05/23 10/05/23 magnesium) tablet melatonin 3 mg tablet 3 mg PO BEDTIME PRN Insomnia 10/05/23 10/05/23 multivitamin 1 tab PO DAILY 10/05/23 10/05/23 nystatin 100,000 unit/gram topical 1 appl topical BID 10/05/23 10/05/23 powder (Nystop) oxycodone 5 mg tablet 5 mg PO Q6H PRN Pain (Scale Score 10/05/23 10/05/23 4-6) polyethylene glycol 3350 17 gram 17 g PO BID 10/05/23 10/05/23 oral powder packet pyridoxine (vitamin B6) 50 mg 50 mg PO DAILY 10/05/23 10/05/23 capsule sennosides 8.6 mg tablet (senna) 8.6 mg PO DAILY 10/05/23 10/05/23 Allergies Allergy/AdvReac Type Severity Reaction Status Date / Time acetaminophen [From Percocet] Allergy Unknown Verified 11/10/21 13:29 bee pollen [bee stings] Allergy Unknown Verified 11/10/21 13:29 carvedilol Allergy Unknown Verified 11/10/21 13:29 citalopram Allergy Unknown Verified 11/10/21 13:29 colesevelam [From WelChol] Allergy Unknown Verified 11/10/21 13:29 fluoxetine Allergy Unknown Verified 11/10/21 13:29 gabapentin Allergy Unresponsiv Verified 11/10/21 13:29 e lactose Allergy Unknown Verified 11/10/21 13:29 lisinopril Allergy Unknown Verified 11/10/21 13:29 mirtazapine [From Remeron] Allergy Unknown Verified 11/10/21 13:29 oxycodone [From Percocet] Allergy Unknown Verified 11/10/21 13:29 venlafaxine [From Effexor] Allergy Unknown Verified 11/10/21 13:29 [facility] Past Medical History Medical History PAF (paroxysmal atrial fibrillation) NICM (nonischemic cardiomyopathy) Diabetes Pacemaker Surgical History History of right-sided carotid endarterectomy Hx of CABG Status post transcatheter aortic valve replacement (TAVR) using bioprosthesis Family History Family History Mother CAD (coronary artery disease) Social History Social History Household Members: None Housing: House Do you presently have visiting nurse or other home services: Yes Unable to assess alcohol history related to: Unable to respond Alcohol intake: unknown Comment: pt refused bed alarm as he needs to stand at the side of the bed to void Patient Tobacco Use Status: Former Tobacco user Smoked in Last 30 Days: No Use of substances other than those prescribed or required for medical reasons: Unable to respond Advance Directives: Yes Advance Directives on File: Yes Advance Directives Date on File: 10/05/23 Healthcare Proxy: Yes (Arleth Ly [phone]) service: No Current occupational status: retired Physical Exam ED Vital Signs: Vital Signs - 24 hr 10/13/23 14:00 10/13/23 16:30 10/13/23 22:35 Temperature 98.4 F 98.0 F 97.4 F Pulse Rate 61 71 81 Respiratory Rate 20 16 17 Blood Pressure 123/61 147/72 H 114/60 Pulse Oximetry 94 97 96 Oxygen Delivery Method Room Air Room Air Room Air BMI result Body Mass Index 26.9 Course Course Course Narrative: See original note. Reevaluation(s) Reevaluation #1: Went to go evaluate patient he is very somnolent sleepy hard to awake, reach out to Psychiatry to see if they can re-evaluate patient to adjust medications Healthcare proxy at the bedside with questions for psychiatry. Time: 14:06 Reevaluation #2: Psychiatry recommends d/c seroquel . CM concerned about changes in mentation plan is for head CT , UA, ammonia and then hospital admission for acute delirium. Dr. Eli aware of this case according to case managment Time: 15:48 Medications Administered Generic Name Dose Route Start Last Admin Trade Name Freq PRN Reason Stop Dose Admin Acetaminophen 325 mg 10/12/23 10:48 10/13/23 21:06 Acetaminophen 325 Mg Tablet PO 325 mg Q4H PRN Administration Pain, Mild (Pain Scale 1-3) Allopurinol 200 mg 10/06/23 09:00 10/13/23 08:10 Allopurinol 100 Mg Tablet PO 200 mg DAILY ABBY Administration Amlodipine Besylate 5 mg 10/06/23 21:00 10/13/23 21:05 Amlodipine Besylate 5 Mg Tablet PO 5 mg BEDTIME ABBY Administration Protocol Apixaban 2.5 mg 10/06/23 09:00 10/13/23 21:06 Apixaban 2.5 Mg Tablet PO 2.5 mg BID ABBY Administration Aspirin 81 mg 10/07/23 09:30 10/13/23 08:10 Aspirin 81 Mg Tab.Chew PO 81 mg DAILY ABBY Administration Atorvastatin Calcium 40 mg 10/06/23 21:00 10/13/23 21:04 Atorvastatin Calcium 40 Mg Tablet PO 40 mg BEDTIME ABBY Administration Cyclobenzaprine HCl 10 mg 10/11/23 09:14 10/13/23 23:04 Cyclobenzaprine Hcl 10 Mg Tablet PO 10 mg TID PRN Administration Muscle Spasm Folic Acid 1 mg 10/06/23 09:00 10/13/23 08:10 Folic Acid 1 Mg Tablet PO 1 mg DAILY ABBY Administration Furosemide 20 mg 10/06/23 09:00 10/13/23 08:10 Furosemide 20 Mg Tablet PO 20 mg DAILY ABBY Administration Protocol Magnesium Oxide 400 mg 10/06/23 09:00 10/13/23 08:10 Magnesium Oxide 400 Mg Tablet PO 400 mg DAILY ABBY Administration Melatonin 3 mg 10/06/23 08:20 10/13/23 21:05 Melatonin 3 Mg Tablet PO 3 mg BEDTIME PRN Administration Insomnia Multivitamins/Vitamin C 1 tab 10/06/23 09:00 10/13/23 08:10 Multivitamin Tablet PO 1 tab DAILY ABBY Administration Nystatin 1 appl 10/06/23 09:00 10/13/23 21:45 Nystatin Powder 15 Gm Bottle TOPICAL 1 appl BID ABBY Administration Protocol Omeprazole 20 mg 10/06/23 09:00 10/14/23 06:03 Omeprazole 20 Mg Capsule. PO 20 mg DAILY@0630 ABBY Administration Polyethylene Glycol 17 gm 10/06/23 09:00 10/13/23 21:07 Polyethylene Glycol 3350 17 Gm Powd.Pack PO 17 gm BID ABBY Administration Pyridoxine HCl 50 mg 10/07/23 09:00 10/13/23 08:10 Pyridoxine Hcl (Vitamin B6) 50 Mg Tablet PO 50 mg DAILY ABBY Administration Quetiapine Fumarate 12.5 mg 10/10/23 21:00 10/13/23 21:05 Quetiapine Fumarate 25 Mg Tablet PO 12.5 mg BEDTIME ABBY Administration Quetiapine Fumarate 12.5 mg 10/10/23 09:35 10/13/23 15:29 Quetiapine Fumarate 25 Mg Tablet PO 12.5 mg TID PRN Administration agitation Senna 8.6 mg 10/06/23 09:00 10/13/23 08:10 Sennosides 8.6 Mg Tablet PO 8.6 mg DAILY ABBY Administration Tamsulosin HCl 0.4 mg 10/06/23 21:00 10/13/23 21:04 Tamsulosin Hcl 0.4 Mg Capsule PO 0.4 mg BEDTIME ABBY Administration Thiamine HCl 100 mg 10/06/23 09:00 10/13/23 08:10 Thiamine Hcl 100 Mg Tablet PO 100 mg DAILY ABBY Administration Vitamin D 50 mcg 10/06/23 09:00 10/13/23 08:10 Cholecalciferol (Vitamin D3) 25 Mcg Tablet PO 50 mcg DAILY ABBY Administration Discontinued Medications Generic Name Dose Route Start Last Admin Trade Name Leonarda PRN Reason Stop Dose Admin Acetaminophen 975 mg 10/10/23 23:06 10/10/23 23:31 Acetaminophen 325 Mg Tablet PO 10/10/23 23:07 975 mg ONCE ONE Administration Aspirin 81 mg 10/06/23 09:00 10/07/23 09:29 Aspirin Enteric Coated 81 Mg Tablet.Dr PO Not Given DAILY ABBY Diphenhydramine HCl 50 mg 10/05/23 20:08 10/05/23 20:21 Diphenhydramine Hcl 50 Mg/Ml Vial IM 10/05/23 20:09 50 mg ONCE ONE Administration Hydroxyzine HCl 25 mg 10/06/23 08:20 10/06/23 10:17 Hydroxyzine Hcl 25 Mg Tablet PO 25 mg TID PRN Administration Anxiety Lidocaine HCl 20 ml 10/09/23 19:13 10/09/23 19:47 Lidocaine Hcl 2 % Urojet 10 Ml Jel.Pf.Mary TOPICAL 10/09/23 19:14 20 ml ONCE ONE Administration Lidocaine HCl 10 ml 10/09/23 20:25 10/09/23 21:29 Lidocaine Hcl 2 % Urojet 10 Ml Jel.Pf.Mary TOPICAL 10/09/23 20:26 10 ml ONCE ONE Administration Lidocaine HCl 10 ml 10/09/23 20:32 10/09/23 21:29 Lidocaine Hcl 2 % Urojet 10 Ml Jel.Pf.Mary TOPICAL 10/09/23 20:33 10 ml ONCE ONE Administration Lidocaine HCl 10 ml 10/10/23 21:32 10/10/23 21:50 Lidocaine Hcl 2 % Urojet 10 Ml Jel.Pf.Mary TOPICAL 10/10/23 21:33 Not Given ONCE ONE Lorazepam 2 mg 10/05/23 20:08 10/05/23 20:21 Lorazepam 2 Mg/Ml Vial IM 10/05/23 20:09 2 mg STAT STA Administration Lorazepam 1 mg 10/09/23 19:13 10/09/23 19:43 Lorazepam 1 Mg Tablet PO 10/09/23 19:14 1 mg ONCE ONE Administration Morphine Sulfate 4 mg 10/09/23 19:13 10/09/23 19:45 Morphine Sulfate 4 Mg/Ml Cartridge IM 10/09/23 19:14 4 mg ONCE ONE Administration Protocol Olanzapine 5 mg 10/05/23 15:53 10/06/23 16:12 Olanzapine Odt 10 Mg Tab.Rapdis TRANSLINGU 5 mg BID PRN Administration anxiety/restlessness Olanzapine 5 mg 10/05/23 20:08 10/05/23 20:21 Olanzapine 10 Mg Vial IM 10/05/23 20:09 5 mg ONCE ONE Administration Oxycodone HCl 5 mg 10/06/23 08:20 10/09/23 17:01 Oxycodone Hcl Immed Release 5 Mg Tablet PO 5 mg Q6H PRN Administration Pain (Scale Score 4-6) Potassium Chloride 40 meq 10/05/23 10:48 10/05/23 10:56 Potassium Chloride Packet 20 Meq Packet PO 10/05/23 10:49 40 meq ONCE ONE Administration Quetiapine Fumarate 25 mg 10/06/23 21:00 10/07/23 09:26 Quetiapine Fumarate 25 Mg Tablet PO 25 mg TID ABBY Administration Quetiapine Fumarate 25 mg 10/08/23 09:00 10/08/23 09:52 Quetiapine Fumarate 25 Mg Tablet PO 25 mg BID ABBY Administration Tramadol HCl 50 mg 10/11/23 19:10 10/11/23 19:20 Tramadol Hcl 50 Mg Tablet PO 10/11/23 19:11 50 mg ONCE ONE Administration Tramadol HCl 50 mg 10/12/23 04:16 10/12/23 04:23 Tramadol Hcl 50 Mg Tablet PO 10/12/23 04:17 50 mg ONCE ONE Administration Tramadol HCl 50 mg 10/13/23 14:46 10/13/23 14:48 Tramadol Hcl 50 Mg Tablet PO 10/13/23 14:47 50 mg ONCE ONE Administration Medical Decision Making Lab Data 10/05/23 10:23 10/06/23 12:07 Labs: Lab Results 10/05/23 10/05/23 10/06/23 Range/Units 10:23 14:16 12:07 WBC 8.3 (4.8-10.8) X10*3/uL RBC 4.06 L (4.60-5.80) X10*6/uL Hgb 12.6 L (14.0-18.0) g/dl Hct 37.6 L (42.0-52.0) % MCV 92.6 (80.0-98.0) fL MCH 31.0 (27.0-33.0) pg MCHC 33.5 (31.0-36.0) g/dl RDW 13.4 (11.0-16.0) % Plt Count 176 D (160-400) X10*3/uL MPV 9.9 (9.4-12.4) fL Immature Gran % (Auto) 0.5 H (0.0-0.4) % Neut % (Auto) 63.7 (45-73) % Lymph % (Auto) 20.7 (20-40) % [place] % (Auto) 12.7 H (2-11) % Eos % (Auto) 1.9 (0-4) % Baso % (Auto) 0.5 (0-2) % Lymph # (Auto) 1.7 (1.2-4.9) X10*3/uL [place] # (Auto) 1.1 (0.1-1.2) X10*3/uL Eos # (Auto) 0.2 (0.0-0.4) X10*3/uL Baso # (Auto) 0.0 (0.0-0.2) X10*3/uL Abs Immat Gran (auto) 0.04 H (0.00-0.03) X10*3/uL Absolute Neuts (auto) 5.3 (2.0-8.3) x10*3/uL Absolute Nucleated RBC 0.000 (0.0-0.012) X10*3/uL Nucleated RBC % (auto) 0.0 (0.0-0.2) /100WBC Hold Purple Top SEE NOTE Sodium 137 138 (135-145) mmol/L Potassium 3.2 L 3.6 (3.3-5.1) mmol/L Chloride 99 101 (96-108) mmol/L Carbon Dioxide 28 26 (22-29) mmol/L Anion Gap 13 15 (12-20) BUN 12 13 (9-16) mg/dL Creatinine 1.01 0.92 (0.5-1.4) mg/dL Estim Creat Clear Calc 49.0 53.8 Estimated GFR > 60 > 60 POC Glucose (60-115) mg/dL Random Glucose 106 108 (60-115) mg/dL Calcium 9.0 9.4 (8.4-10.2) mg/dL Total Bilirubin 3.7 H (0.0-1.0) mg/dL AST 22 (5-37) U/L ALT 13 (0-40) U/L Alkaline Phosphatase 93 (39-117) U/L Ammonia (13-55) umol/L Total Protein 7.5 (6.5-8.0) g/dL Albumin 3.3 L (3.5-5.0) g/dL Urine Color Dark Yellow Urine Appearance Clear Urine pH 6.0 (5.0-9.0) Ur Specific [place] 1.020 (1.005-1.025) Urine Protein 30 (1+) H (Neg-Trace) mg/dL Urine Glucose (UA) Negative (Negative) mg/dL Urine Ketones Trace (Negative) mg/dL Urine Blood Negative (Negative) Urine Nitrite Negative (Negative) Ur Leukocyte Esterase Trace H (Negative) Urine RBC 3-5 H (0-2) /HPF Urine WBC 0-5 (0-5) /HPF Ur Squamous Epith Cells 0-2 (0-2) /HPF Urine Bacteria None Seen (None Seen) Hyaline Casts 3-5 (0-2) /LPF COVID-19 ([facility]) (Negative) COVID-19 Clin Com Influenza Type A ([facility]) (Negative) Influenza Type B ([facility]) (Negative) Influenza A & B Note 10/07/23 10/08/23 10/11/23 Range/Units 19:44 00:50 06:28 WBC (4.8-10.8) X10*3/uL RBC (4.60-5.80) X10*6/uL Hgb (14.0-18.0) g/dl Hct (42.0-52.0) % MCV (80.0-98.0) fL MCH (27.0-33.0) pg MCHC (31.0-36.0) g/dl RDW (11.0-16.0) % Plt Count (160-400) X10*3/uL MPV (9.4-12.4) fL Immature Gran % (Auto) (0.0-0.4) % Neut % (Auto) (45-73) % Lymph % (Auto) (20-40) % [place] % (Auto) (2-11) % Eos % (Auto) (0-4) % Baso % (Auto) (0-2) % Lymph # (Auto) (1.2-4.9) X10*3/uL [place] # (Auto) (0.1-1.2) X10*3/uL Eos # (Auto) (0.0-0.4) X10*3/uL Baso # (Auto) (0.0-0.2) X10*3/uL Abs Immat Gran (auto) (0.00-0.03) X10*3/uL Absolute Neuts (auto) (2.0-8.3) x10*3/uL Absolute Nucleated RBC (0.0-0.012) X10*3/uL Nucleated RBC % (auto) (0.0-0.2) /100WBC Hold Purple Top Sodium (135-145) mmol/L Potassium (3.3-5.1) mmol/L Chloride (96-108) mmol/L Carbon Dioxide (22-29) mmol/L Anion Gap (12-20) BUN (9-16) mg/dL Creatinine (0.5-1.4) mg/dL Estim Creat Clear Calc Estimated GFR POC Glucose (60-115) mg/dL Random Glucose (60-115) mg/dL Calcium (8.4-10.2) mg/dL Total Bilirubin (0.0-1.0) mg/dL AST (5-37) U/L ALT (0-40) U/L Alkaline Phosphatase (39-117) U/L Ammonia 21 (13-55) umol/L Total Protein (6.5-8.0) g/dL Albumin (3.5-5.0) g/dL Urine Color Dark Yellow Yellow Urine Appearance Clear Hazy Urine pH 5.5 5.5 (5.0-9.0) Ur Specific [place] 1.020 <= 1.005 (1.005-1.025) Urine Protein 30 (1+) H Trace (Neg-Trace) mg/dL Urine Glucose (UA) Negative Negative (Negative) mg/dL Urine Ketones Negative Negative (Negative) mg/dL Urine Blood Moderate (2+) H Large (3+) H (Negative) Urine Nitrite Negative Negative (Negative) Ur Leukocyte Esterase Trace H Moderate (2+) H (Negative) Urine RBC >20 H >20 H (0-2) /HPF Urine WBC 0-5 11-20 H (0-5) /HPF Ur Squamous Epith Cells 0-2 3-5 (0-2) /HPF Urine Bacteria None Seen None Seen (None Seen) Hyaline Casts 0-2 3-5 (0-2) /LPF COVID-19 ([facility]) (Negative) COVID-19 Clin Com Influenza Type A ([facility]) (Negative) Influenza Type B ([facility]) (Negative) Influenza A & B Note 10/11/23 10/12/23 Range/Units 22:09 15:26 WBC (4.8-10.8) X10*3/uL RBC (4.60-5.80) X10*6/uL Hgb (14.0-18.0) g/dl Hct (42.0-52.0) % MCV (80.0-98.0) fL MCH (27.0-33.0) pg MCHC (31.0-36.0) g/dl RDW (11.0-16.0) % Plt Count (160-400) X10*3/uL MPV (9.4-12.4) fL Immature Gran % (Auto) (0.0-0.4) % Neut % (Auto) (45-73) % Lymph % (Auto) (20-40) % [place] % (Auto) (2-11) % Eos % (Auto) (0-4) % Baso % (Auto) (0-2) % Lymph # (Auto) (1.2-4.9) X10*3/uL [place] # (Auto) (0.1-1.2) X10*3/uL Eos # (Auto) (0.0-0.4) X10*3/uL Baso # (Auto) (0.0-0.2) X10*3/uL Abs Immat Gran (auto) (0.00-0.03) X10*3/uL Absolute Neuts (auto) (2.0-8.3) x10*3/uL Absolute Nucleated RBC (0.0-0.012) X10*3/uL Nucleated RBC % (auto) (0.0-0.2) /100WBC Hold Purple Top Sodium (135-145) mmol/L Potassium (3.3-5.1) mmol/L Chloride (96-108) mmol/L Carbon Dioxide (22-29) mmol/L Anion Gap (12-20) BUN (9-16) mg/dL Creatinine (0.5-1.4) mg/dL Estim Creat Clear Calc Estimated GFR POC Glucose 107 (60-115) mg/dL Random Glucose (60-115) mg/dL Calcium (8.4-10.2) mg/dL Total Bilirubin (0.0-1.0) mg/dL AST (5-37) U/L ALT (0-40) U/L Alkaline Phosphatase (39-117) U/L Ammonia (13-55) umol/L Total Protein (6.5-8.0) g/dL Albumin (3.5-5.0) g/dL Urine Color Urine Appearance Urine pH (5.0-9.0) Ur Specific [place] (1.005-1.025) Urine Protein (Neg-Trace) mg/dL Urine Glucose (UA) (Negative) mg/dL Urine Ketones (Negative) mg/dL Urine Blood (Negative) Urine Nitrite (Negative) Ur Leukocyte Esterase (Negative) Urine RBC (0-2) /HPF Urine WBC (0-5) /HPF Ur Squamous Epith Cells (0-2) /HPF Urine Bacteria (None Seen) Hyaline Casts (0-2) /LPF COVID-19 ([facility]) Negative (Negative) COVID-19 Clin Com See Note Influenza Type A (CH[facility]IAN) Negative (Negative) Influenza Type B ([facility]IAN) Negative (Negative) Influenza A & B Note See Note Discharge Plan Discharge Clinical Impression: Delusions Patient Disposition: [facility] Additional Instructions: Follow up with your primary care provider. Return to the emergency department immediately if you develop any dizziness, shortness of breath, difficulty breathing, chest pain, blurry vision, loss of vision, nausea, vomiting, abdominal pain, fever, chills, back pain, or any other complaints. Prescriptions: No Action atorvastatin 40 mg tablet 40 mg PO BEDTIME thiamine HCl (vitamin B1) 100 mg tablet 100 mg PO DAILY amlodipine 5 mg tablet 5 mg PO BEDTIME allopurinol 100 mg tablet 200 mg PO DAILY tamsulosin 0.4 mg capsule 0.4 mg PO BEDTIME omeprazole 20 mg capsule,delayed release(DR/EC) 20 mg PO DAILY lorazepam 1 mg tablet 1 mg PO BEDTIME Eliquis 2.5 mg tablet 2.5 mg PO BID aspirin 81 mg Tablet,Delayed Release (Dr/Ec) 81 mg PO DAILY cholecalciferol (vitamin D3) 50 mcg (2,000 unit) Tablet 50 mcg PO DAILY multivitamin [Multivites] Tablet 1 tab PO DAILY sennosides [senna] 8.6 mg Tablet 8.6 mg PO DAILY polyethylene glycol 3350 17 gram Powder In Packet 17 g PO BID melatonin 3 mg Tablet 3 mg PO BEDTIME PRN (Reason: Insomnia) magnesium oxide 400 mg (241.3 mg magnesium) tablet 400 mg DAILY folic acid 1 mg Tablet 1 mg PO DAILY hydroxyzine HCl 25 mg Tablet 25 mg PO TID PRN (Reason: Anxiety) furosemide 20 mg Tablet 20 mg PO DAILY nystatin [Nystop] 100,000 unit/gram Powder 1 appl TOPICAL BID Patient Comments: APPPLY TO GROIN BID oxycodone 5 mg Tablet 5 mg PO Q6H PRN (Reason: Pain (Scale Score 4-6)) pyridoxine (vitamin B6) 50 mg Capsule 50 mg PO DAILY Referrals: [facility] [Outside] ([address] [place] [id number] ) Print Language: Romansh
--- NOTE | 2023-10-07 14:11 | MHC.EDTECH ---
patient was washed up with a complete bed changed.
--- NOTE | 2023-10-07 16:20 | PC.NURSE ---
pt off unit to CT
--- NOTE | 2023-10-07 16:53 | MHC.CM.ED ---
Patient remains in ER overflow. Patient still experiencing delirium symptoms. These were discussed with Dr Eli. Dr Eli requesting head CT, UA and ammonia be ordered. But he does feel bringing the patient into the hospital would be appropriate. Laurel GUADALUPE aware. Continue to monitor for d/c needs.
--- NOTE | 2023-10-07 19:06 | PC.NURSE ---
pt continues to rest in bed, NAD - wakes easily. VSS. [place] cath in place
[2023-10-07 20:07] LABS: Ammonia 21 umol/L (13-55)
[2023-10-07 20:08] VITALS: BP 146/70; PULSE 88; RESP 16; TEMP 38.6; O2SAT 92
--- NOTE | 2023-10-07 20:15 | MHC.EDTECH ---
tHIS PCT ASSUMED CARE OF PT AT 1900 ,AMMONIA DRAWN AND DENT TO LAB ,PT WAS INCONTINENT OF LARGE AMOUNT OF LOOSE STOOL ,CARE GIVEN AND BEDDING CHANGE ,VITALS DONE ,RN NATTY IS AWARE OF PT HIGH TEMP .
[2023-10-07] MEDS: Atorvastatin Calcium 40 MG TABLET PO (20:54)
[2023-10-07] MEDS: amLODIPine Besylate 5 MG TABLET PO (20:54)
[2023-10-07] MEDS: Nystatin Powder 15 GM BOTTLE 1 APPL TOPICAL (20:54)
[2023-10-07] MEDS: Tamsulosin HCL 0.4 MG CAPSULE PO (21:32)
[2023-10-07 22:00] VITALS: TEMP 38.1
--- NOTE | 2023-10-07 22:11 | MHC.EDTECH ---
RECTAL TEMP RECHECK ITS 100.5 ,RN NATTY AWARE ,PT HAD SMALL AMOUNT OF SOFT STOOL ,CARE GIVEN ,PT MORE AWAKE AND ALERT ASKING FOR WATER ,AND WAS ABLE TO HOLD CUP HIMSELF ,DRANK 240 ML .
--- NOTE | 2023-10-08 00:25 | MHC.EDTECH ---
PATIENT DID NOT VOID SINE THIS PCT GOT HERE AT 1900 ,BLADDER SCAN DONE AT 0025 735 ML IN PATIENT BLADDER ,RN SALTY AWARE .
--- NOTE | 2023-10-08 01:04 | MHC.EDTECH ---
Patient was straight cath ,800 ml out put ,also pt was soiled care given and warm blanket ,Call real within Pt reach ,urine sample collected and sent to lab.Pt had sips of water .
[2023-10-08 01:11] LABS: Appearance Urine Clear; Color Urine Dark Yellow; Glucose Urine UA Negative (Negative); Leukocyte Esterase Urine Trace (Negative); Nitrite Urine Negative (Negative); PH 5.5 (5.0-9.0); UMIC TRIGGER UA YES; Urine Blood Moderate (2+) (Negative); Urine Ketones Negative (Negative); Urine Protein 30 (1+) mg/dL (Neg-Trace)
[2023-10-08 01:18] LABS: Bacteria Urine None Seen (None Seen); Hyaline Casts Urine 0-2 /LPF (0-2); RBC Urine >20 /HPF (0-2); Squamous Epithelial Cell Urine 0-2 /HPF (0-2); WBC Urine 0-5 /HPF (0-5)
--- NOTE | 2023-10-08 04:52 | PC.NURSE ---
Patient bladder scanned for 735 ml, Physician notified. Str cath ordered, patient str cath for 800ml. Tolerated well.
[2023-10-08 06:09] VITALS: BP 146/53; PULSE 62; RESP 14; TEMP 36.2; O2SAT 91
[2023-10-08 09:15] VITALS: PULSE 65; RESP 18; O2SAT 96
[2023-10-08] MEDS: Magnesium Oxide 400 MG TABLET PO (09:52)
[2023-10-08] MEDS: Omeprazole 20 MG CAPSULE.DR PO (09:52)
[2023-10-08] MEDS: Folic Acid 1 MG TABLET PO (09:52)
[2023-10-08] MEDS: Cholecalciferol (Vitamin D3) 25 MCG TABLET 50 MCG PO (09:52)
[2023-10-08] MEDS: Furosemide 20 MG TABLET PO (09:52)
[2023-10-08] MEDS: Aspirin 81 MG TAB.CHEW PO (09:52)
[2023-10-08] MEDS: Thiamine HCL 100 MG TABLET PO (09:52)
[2023-10-08] MEDS: Sennosides 8.6 MG TABLET PO (09:52)
[2023-10-08] MEDS: QUEtiapine Fumarate 25 MG TABLET PO (09:52)
[2023-10-08] MEDS: polyethylene glycoL 3350 17 GM POWD.PACK PO ×2 (09:52→20:56)
[2023-10-08] MEDS: Apixaban 2.5 MG TABLET PO ×2 (09:52→20:57)
[2023-10-08] MEDS: Multivitamin TABLET 1 TAB PO (09:52)
[2023-10-08] MEDS: Nystatin Powder 15 GM BOTTLE 1 APPL TOPICAL ×2 (09:53→20:56)
[2023-10-08 09:57] VITALS: BP 125/65; PULSE 65; RESP 18; TEMP 36.5; O2SAT 96
--- NOTE | 2023-10-08 10:09 | PC.NURSE ---
Addendum entered by Deirdre Pablo 10/08/23 10:12: omeprazole tolerated whole Original Note: new gown/sheets, t&p to other side. boosted. pills given crushed w pudding as pt did not tolerate whole. no resp distess. talks well. a/o to self//that we are in a hospital. new pillows given under leg/side.
[2023-10-08 10:50] VITALS: RESP 18
[2023-10-08] MEDS: allopurinoL 100 MG TABLET 200 MG PO (10:58)
[2023-10-08] MEDS: oxyCODONE HCl Immed Release 5 MG TABLET PO (10:59)
[2023-10-08] MEDS: Pyridoxine HCl (Vitamin B6) 50 MG TABLET PO (11:51)
--- NOTE | 2023-10-08 12:35 | PC.NURSE ---
resting, offered food. pain decreased. regular breathing
--- NOTE | 2023-10-08 13:23 | PC.NURSE ---
per manpower development advisor brissa no marquez at this time. bladder scan 400cc- manpower development advisor aware. no bladder tenderness. resting.
--- NOTE | 2023-10-08 16:15 | MHC.CM.PN ---
PER DISCUSSION WITH PROVIDER. PSYCH WILL RE-ASSESS DELIRIUM/MED REC. PLAN REMAINS TO RETURN TO STR. CM WILL CONTINUE TO FOLLOW FOR ANY CHANGE TO DC PLAN/NEEDS.
[2023-10-08 19:05] VITALS: BP 128/57; PULSE 61; RESP 16; TEMP 36.8; O2SAT 93
[2023-10-08] MEDS: Atorvastatin Calcium 40 MG TABLET PO (20:56)
[2023-10-08] MEDS: Tamsulosin HCL 0.4 MG CAPSULE PO (20:57)
[2023-10-08] MEDS: amLODIPine Besylate 5 MG TABLET PO (20:57)
[2023-10-09 06:00] VITALS: BP 143/56; PULSE 61; RESP 20; O2SAT 92
[2023-10-09] MEDS: Omeprazole 20 MG CAPSULE.DR PO (06:15)
[2023-10-09] MEDS: Furosemide 20 MG TABLET PO (08:29)
[2023-10-09] MEDS: Magnesium Oxide 400 MG TABLET PO (08:29)
[2023-10-09] MEDS: Cholecalciferol (Vitamin D3) 25 MCG TABLET 50 MCG PO (08:29)
[2023-10-09] MEDS: Multivitamin TABLET 1 TAB PO (08:29)
[2023-10-09] MEDS: Thiamine HCL 100 MG TABLET PO (08:29)
[2023-10-09] MEDS: Folic Acid 1 MG TABLET PO (08:29)
[2023-10-09] MEDS: Apixaban 2.5 MG TABLET PO ×2 (08:29→21:29)
[2023-10-09] MEDS: oxyCODONE HCl Immed Release 5 MG TABLET PO ×2 (08:30→17:01)
[2023-10-09] MEDS: Aspirin 81 MG TAB.CHEW PO (09:26)
--- NOTE | 2023-10-09 10:40 | P.CNPS_ITS ---
History of Present Illness Date of Service: 10/09/2023 Chief Complaint: SI Reason for Consult: Agitation, medication recommendation Requesting physician: Amalia Duarte Discussed with referring provider: Yes (text) Sources of Information: patient interviewed (pt was seen) and chart reviewed HPI Narrative: 88 yo male, to ER from [facility] when he was recovering from a L patella fx. Pt made statements that he attempted to hang himself with bed sheets. Found to lack capacity on 10/06 and recommendation was to envoke HCP. Pt required restraint (Olanzapine 5 mg Ativan 2 mg). Seroquel 25 mg bid and 25 mg q6hprn agitation were recommended for agitation. Seroquel was stopped yesterday due to sedation. Team requests added options. Pt in ED, sleeping, appears calm, no distress, appears comfortable. Team reports they would like options for managment of agitation. Medical Evaluation Reviewed: Yes Review of Systems Review of Systems Yes Unobtainable due to mental status PMFSH Medical History PAF (paroxysmal atrial fibrillation) NICM (nonischemic cardiomyopathy) Diabetes Pacemaker Surgical History History of right-sided carotid endarterectomy Hx of CABG Status post transcatheter aortic valve replacement (TAVR) using bioprosthesis Diagnostics Vital Signs (24Hr): Vital Signs - 24 hr 10/08/23 10:50 10/08/23 19:05 10/09/23 06:00 Temperature 98.2 F Pulse Rate 61 61 Respiratory Rate 18 16 20 Blood Pressure 128/57 L 143/56 H Pulse Oximetry 93 92 Oxygen Delivery Method Room Air Room Air BMI result Body Mass Index 26.9 Labs 10/05/23 10:23 10/06/23 12:07 Labs: Laboratory Results - last 48 hr 10/07/23 10/08/23 19:44 00:50 Ammonia 21 Urine Color Dark Yellow Urine Appearance Clear Urine pH 5.5 Ur Specific [place] 1.020 Urine Protein 30 (1+) H Urine Glucose (UA) Negative Urine Ketones Negative Urine Blood Moderate (2+) H Urine Nitrite Negative Ur Leukocyte Esterase Trace H Urine RBC >20 H Urine WBC 0-5 Ur Squamous Epith Cells 0-2 Urine Bacteria None Seen Hyaline Casts 0-2 Imaging Radiology Impressions: ITS Impressions Head CT 10/07/23 16:32 IMPRESSION: Cerebral volume loss and extensive bilateral periventricular and central white matter diminished attenuation which is nonspecific but 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 No acute intracranial abnormality. Mental Status Exam Mental Status Exam Narrative: Calm, sedate, asleep, awakens easily, smiles, returns to sleep. Medications Medications Current Medications Allopurinol (Allopurinol 100 Mg Tablet) 200 mg PO DAILY [facility] Last Admin: 10/08/23 10:58 Dose: 200 mg Amlodipine Besylate (Amlodipine Besylate 5 Mg Tablet) 5 mg PO BEDTIME [facility]; Protocol Last Admin: 10/08/23 20:57 Dose: 5 mg Apixaban (Apixaban 2.5 Mg Tablet) 2.5 mg PO BID [facility] Last Admin: 10/09/23 08:29 Dose: 2.5 mg Aspirin (Aspirin 81 Mg Tab.Chew) 81 mg PO DAILY [facility] Last Admin: 10/09/23 09:26 Dose: 81 mg Atorvastatin Calcium (Atorvastatin Calcium 40 Mg Tablet) 40 mg PO BEDTIME [facility] Last Admin: 10/08/23 20:56 Dose: 40 mg Folic Acid (Folic Acid 1 Mg Tablet) 1 mg PO DAILY [facility] Last Admin: 10/09/23 08:29 Dose: 1 mg Furosemide (Furosemide 20 Mg Tablet) 20 mg PO DAILY [facility]; Protocol Last Admin: 10/09/23 08:29 Dose: 20 mg Magnesium Oxide (Magnesium Oxide 400 Mg Tablet) 400 mg PO DAILY [facility] Last Admin: 10/09/23 08:29 Dose: 400 mg Melatonin (Melatonin 3 Mg Tablet) 3 mg PO BEDTIME PRN PRN Reason: Insomnia Multivitamins/Vitamin C (Multivitamin Tablet) 1 tab PO DAILY [facility] Last Admin: 10/09/23 08:29 Dose: 1 tab Nystatin (Nystatin Powder 15 Gm Bottle) 1 appl TOPICAL BID [facility]; Protocol Last Admin: 10/08/23 20:56 Dose: 1 appl Omeprazole (Omeprazole 20 Mg Capsule.Dr) 20 mg PO DAILY@0630 [facility] Last Admin: 10/09/23 06:15 Dose: 20 mg Oxycodone HCl (Oxycodone Hcl Immed Release 5 Mg Tablet) 5 mg PO Q6H PRN PRN Reason: Pain (Scale Score 4-6) Last Admin: 10/09/23 08:30 Dose: 5 mg Polyethylene Glycol (Polyethylene Glycol 3350 17 Gm Powd.Pack) 17 gm PO BID [facility] Last Admin: 10/09/23 08:25 Dose: Not Given Pyridoxine HCl (Pyridoxine Hcl (Vitamin B6) 50 Mg Tablet) 50 mg PO DAILY [facility] Last Admin: 10/08/23 11:51 Dose: 50 mg Senna (Sennosides 8.6 Mg Tablet) 8.6 mg PO DAILY [facility] Last Admin: 10/09/23 08:26 Dose: Not Given Tamsulosin HCl (Tamsulosin Hcl 0.4 Mg Capsule) 0.4 mg PO BEDTIME [facility] Last Admin: 10/08/23 20:57 Dose: 0.4 mg Thiamine HCl (Thiamine Hcl 100 Mg Tablet) 100 mg PO DAILY [facility] Last Admin: 10/09/23 08:29 Dose: 100 mg Vitamin D (Cholecalciferol (Vitamin D3) 25 Mcg Tablet) 50 mcg PO DAILY [facility] Last Admin: 10/09/23 08:29 Dose: 50 mcg Allergies Allergies Allergy/AdvReac Type Severity Reaction Status Date / Time acetaminophen [From Percocet] Allergy Unknown Verified 11/10/21 13:29 bee pollen [bee stings] Allergy Unknown Verified 11/10/21 13:29 carvedilol Allergy Unknown Verified 11/10/21 13:29 citalopram Allergy Unknown Verified 11/10/21 13:29 colesevelam [From WelChol] Allergy Unknown Verified 11/10/21 13:29 fluoxetine Allergy Unknown Verified 11/10/21 13:29 gabapentin Allergy Unresponsiv Verified 11/10/21 13:29 e lactose Allergy Unknown Verified 11/10/21 13:29 lisinopril Allergy Unknown Verified 11/10/21 13:29 mirtazapine [From Remeron] Allergy Unknown Verified 11/10/21 13:29 oxycodone [From Percocet] Allergy Unknown Verified 11/10/21 13:29 venlafaxine [From Effexor] Allergy Unknown Verified 11/10/21 13:29 Assessment & Plan Assessment & Plan (1) Agitation: Status: Acute Code(s): R45.1 - Restlessness and agitation (2) Delirium due to another medical condition: Status: Acute Code(s): F05 - Delirium due to known physiological condition Plan Team reports Seroquel was effective yet sedating. Suggest 1. Seroquel 12.5 mg evenings. 2. Seroquel 12.5 mg tid prn agitation 3. Further titration as pt will tolerate. Total time managing care of this patient today ____ minutes. Informed Consent: does not understand
[2023-10-09] MEDS: allopurinoL 100 MG TABLET 200 MG PO (11:55)
--- NOTE | 2023-10-09 12:05 | MHC.EDTECH ---
Assisted patient with urinal.
--- NOTE | 2023-10-09 12:13 | PC.NURSE ---
this rn assumed care of this pt at 0930. pt was sleeping at the time of assuming care. pt woke up for breakfast, ate 25%. meds given as documented. meds that were not given are not available in [facility]
[2023-10-09] MEDS: Pyridoxine HCl (Vitamin B6) 50 MG TABLET PO (12:55)
[2023-10-09] MEDS: Nystatin Powder 15 GM BOTTLE 1 APPL TOPICAL ×2 (13:09→21:35)
--- NOTE | 2023-10-09 14:46 | MHC.EDTECH ---
Assisted patient with personal hygiene. Changed patients gown and linen.
--- NOTE | 2023-10-09 18:05 | PC.NURSE ---
This nurse assumed care of pt. around 15:30. Pt is lying in hospital bed, alert yet disoriented/confused per reported baseline. Is yelling out about discomfort in lower abdominal area, and pressure in penis. Bladder scanned for 637ml, reported to provider Julia Montes, who placed one time order for straight cath- completed, 700CC dark cb urine. Pt intermittently yelling out on movement about spasms, and then stating burning in same area. Pt then mentions pain in bilteral ankles, given PRN oxycodone. Reported to covering provider, Julia Montes and forwarded per request to covering provider Luiz Mendez , who will place orders accordingly. Discussed plan for order of UA and post bladder scan. Resting comfortably at current post Oxycodone PRN dose, however still reports intermittent discomforts (changing sites each report).Will continue to monitor for changes. Call real within reach.
--- NOTE | 2023-10-09 18:13 | PC.NURSE ---
Post bladder scan s/p first straight cath results in 474, will straight cath for urine sample orders.
--- NOTE | 2023-10-09 19:41 | PC.NURSE ---
Unsuccessful placement of straight cath, pt having residual bleeding from urethra. Reported to provider Luiz Mendez who comes to bedside for evaluation, will place orders as needed.
[2023-10-09] MEDS: LORazepam 1 MG TABLET PO (19:43)
[2023-10-09] MEDS: Morphine Sulfate 4 MG/ML CARTRIDGE IM (19:45)
[2023-10-09] MEDS: Lidocaine HCl 2 % Urojet 10 ML JEL.PF.APP 20 ML TOPICAL (19:47)
--- NOTE | 2023-10-09 20:01 | PC.NURSE ---
LAY Leone Attempted to place 22fr threeway and a 16fr coude tip catheter. Pt tolerated procedure well but both attempts were unsuccessful. Approx 40mL of blood present during attempts. Bleeding is controlled at this time. ANAYELI Dee aware. Pt likely needs urology consult.
[2023-10-09 21:09] VITALS: BP 113/58; PULSE 59; RESP 16; TEMP 36.6; O2SAT 94
[2023-10-09] MEDS: Tamsulosin HCL 0.4 MG CAPSULE PO (21:29)
[2023-10-09] MEDS: polyethylene glycoL 3350 17 GM POWD.PACK PO (21:29)
[2023-10-09] MEDS: Atorvastatin Calcium 40 MG TABLET PO (21:29)
[2023-10-09] MEDS: amLODIPine Besylate 5 MG TABLET PO (21:29)
[2023-10-09] MEDS: Lidocaine HCl 2 % Urojet 10 ML JEL.PF.APP TOPICAL ×2 (21:29)
--- NOTE | 2023-10-09 22:11 | PC.NURSE ---
Pt brought to Main ED for insertion of a 3-way catheter for beginning of CBI. Catheter inserted by Dr Love and CBI was started, pt brought back to overflow after. Pt input 3,000mL, output3,000 mL at 21:15. Output is clear, light yellow, with no clots or sediment. I will continue to monitor output. ANAYELI Dee aware. Pt will remain in overflow at this time.
--- NOTE | 2023-10-09 23:49 | MHC.EDTECH ---
This tech resumed care for this patient @2300. Patient appeared to be asleep no distress. Christensen cath checked, 100ml, did not disturb patient to empty, will monitor urine output.
[2023-10-10 06:00] VITALS: BP 144/57; PULSE 60; RESP 15; TEMP 36.9; O2SAT 92
--- NOTE | 2023-10-10 06:19 | PC.NURSE ---
Pt found to be fidgeting with his catheter. Upon inspection, there was some blood coming from around the catheter site. Blood was mostly coagulated. Pt was cleaned and bleeding appears to be controlled at this time. Pt's catheter has brown-colored urine.
--- NOTE | 2023-10-10 06:32 | PC.NURSE ---
Spoke with ANAYELI Mitchell, advised to hang another bag of CBI.
[2023-10-10] MEDS: Omeprazole 20 MG CAPSULE.DR PO (06:45)
--- NOTE | 2023-10-10 06:51 | PC.NURSE ---
Emptied approx 175mL of brown urine prior to initiating CBI
--- NOTE | 2023-10-10 07:20 | PC.NURSE ---
At this time, 900mL input via CBI. Output 900mL yellow/tea colored urine.
[2023-10-10] MEDS: Furosemide 20 MG TABLET PO (10:46)
[2023-10-10] MEDS: Aspirin 81 MG TAB.CHEW PO (10:49)
[2023-10-10] MEDS: Thiamine HCL 100 MG TABLET PO (10:50)
[2023-10-10] MEDS: Folic Acid 1 MG TABLET PO (10:51)
[2023-10-10] MEDS: Cholecalciferol (Vitamin D3) 25 MCG TABLET 50 MCG PO (10:52)
[2023-10-10] MEDS: Sennosides 8.6 MG TABLET PO (10:52)
[2023-10-10] MEDS: Apixaban 2.5 MG TABLET PO ×2 (10:52→21:03)
[2023-10-10] MEDS: Multivitamin TABLET 1 TAB PO (10:53)
[2023-10-10] MEDS: Magnesium Oxide 400 MG TABLET PO (10:53)
[2023-10-10] MEDS: Nystatin Powder 15 GM BOTTLE 1 APPL TOPICAL ×2 (10:54→21:06)
[2023-10-10] MEDS: Pyridoxine HCl (Vitamin B6) 50 MG TABLET PO (11:57)
[2023-10-10] MEDS: allopurinoL 100 MG TABLET 200 MG PO (11:57)
--- NOTE | 2023-10-10 13:25 | MHC.CM.ED ---
Patient remains in ER overflow unit. Patient is now alert and oriented x3. He does have periods of forgetfulness but remembers T/W is from [facility] and is trying to find STR for him. Patient aware he has been at [facility] for STR. He would prefer not to return there because he doesn't feel the care is good. Agreeable to referral being broadcasted to see what bed offers would be available. Patient's friend/HCP, Arleth is at bedside and this time and was part of this conversation. Referral broadcasted in [facility]. Continue to monitor for d/c needs.
[2023-10-10 14:00] VITALS: BP 115/57; PULSE 73; RESP 24; TEMP 36.8; O2SAT 94
[2023-10-10] MEDS: Tamsulosin HCL 0.4 MG CAPSULE PO (21:03)
[2023-10-10] MEDS: Atorvastatin Calcium 40 MG TABLET PO (21:03)
[2023-10-10] MEDS: polyethylene glycoL 3350 17 GM POWD.PACK PO (21:03)
[2023-10-10] MEDS: QUEtiapine Fumarate 25 MG TABLET 12.5 MG PO ×2 (21:03→22:11)
[2023-10-10] MEDS: amLODIPine Besylate 5 MG TABLET PO (21:03)
--- NOTE | 2023-10-10 21:11 | PC.NURSE ---
previous nurse reported to me that she pulled out pt's marquez. per notes there were several unsuccessful attempts to place marquez in ED and Dr. Love placed a 3-way marquez. pt has not been able to void on his own, bladder scanned pt for 294 ml. tiger text sent to charge nurse Rima Raphael to ask if there was a provider available to place [address] way marquez. Rima reported that she had forwarded my tiger text to Mc Barnard NP. will continue to monitor.
[2023-10-10] MEDS: Melatonin 3 MG TABLET PO (22:11)
[2023-10-10] MEDS: Acetaminophen 325 MG TABLET 975 MG PO (23:31)
[2023-10-11 02:06] VITALS: BP 104/52; PULSE 65; RESP 18; TEMP 36.3; O2SAT 95
--- NOTE | 2023-10-11 05:54 | PC.NURSE ---
assumed care of pt at 2300. PT making several of vocalizations throughout shift yelling for help. this was done while sleeping and awake. Pt reported 10/10 pain due to marquez. PT medicated as per MAR with positive effect. PT was able to sleep for much of overnight shift. Marquez is patent and draining dark urine at this time. VSS. Pt repositioned and hi care provided. Video monitoring remains, safety precautions in place. call real within reach. Plan of care ongoing.
--- NOTE | 2023-10-11 06:44 | PC.NURSE ---
attempted to medicated PT. PT refused/not waking up.
[2023-10-11 07:24] LABS: Appearance Urine Hazy; Color Urine Yellow; Glucose Urine UA Negative (Negative); Leukocyte Esterase Urine Moderate (2+) (Negative); Nitrite Urine Negative (Negative); PH 5.5 (5.0-9.0); Specific Gravity - Urine <= 1.005 (1.005-1.025); UMIC TRIGGER UACC YES; Urine Blood Large (3+) (Negative); Urine Ketones Negative (Negative); Urine Protein Trace mg/dL (Neg-Trace)
[2023-10-11 07:27] LABS: Bacteria Urine None Seen (None Seen); RBC Urine >20 /HPF (0-2); UACC Culture Trigger YES
[2023-10-11 07:42] VITALS: BP 122/63; PULSE 61; RESP 19; TEMP 36.7; O2SAT 92
[2023-10-11] MEDS: Apixaban 2.5 MG TABLET PO ×2 (08:22→20:38)
[2023-10-11] MEDS: Sennosides 8.6 MG TABLET PO (08:22)
[2023-10-11] MEDS: Multivitamin TABLET 1 TAB PO (08:22)
[2023-10-11] MEDS: Furosemide 20 MG TABLET PO (08:22)
[2023-10-11] MEDS: Folic Acid 1 MG TABLET PO (08:22)
[2023-10-11] MEDS: Thiamine HCL 100 MG TABLET PO (08:22)
[2023-10-11] MEDS: Pyridoxine HCl (Vitamin B6) 50 MG TABLET PO (08:22)
[2023-10-11] MEDS: Cholecalciferol (Vitamin D3) 25 MCG TABLET 50 MCG PO (08:22)
[2023-10-11] MEDS: Magnesium Oxide 400 MG TABLET PO (08:22)
[2023-10-11] MEDS: allopurinoL 100 MG TABLET 200 MG PO (08:22)
[2023-10-11] MEDS: Aspirin 81 MG TAB.CHEW PO (08:22)
[2023-10-11] MEDS: polyethylene glycoL 3350 17 GM POWD.PACK PO ×2 (08:27→20:40)
[2023-10-11] MEDS: Nystatin Powder 15 GM BOTTLE 1 APPL TOPICAL ×2 (08:27→21:21)
--- NOTE | 2023-10-11 08:39 | PC.NURSE ---
patient awake/alert to self, pt yelling at times but when questioned as to what he needed he was unable to say, pt offered breakfast and refused, meds crushed and put in pudding, marquez cath patient/draining, call real within reach, will continue to monitor
--- NOTE | 2023-10-11 09:30 | PC.NURSE ---
patient complaining of back pain, stating that the pain was radiating down his leg in jolts, attempts to turn/position him was not helpful, provider was notified and an order for medication was placed prn, by the time the order was in the system patient had fallen asleep, this nurse will medicate the patient upon his waking if he is needing the medication at that time.
[2023-10-11] MEDS: Cyclobenzaprine HCl 10 MG TABLET PO (13:25)
--- NOTE | 2023-10-11 13:32 | PC.NURSE ---
pt woke and c/o 05/16 back pain, pt medicated with flexeril per order, will continue to monitor
[2023-10-11 14:00] VITALS: BP 114/59; PULSE 61; RESP 18; TEMP 36.2; O2SAT 96
--- NOTE | 2023-10-11 14:15 | PC.NURSE ---
Patient alert & oriented to person/place, pt c/o back pain was medicated, turned/positioned in bed for comfort, marquez cath patient/draining, pt vss, call real within reach, will continue to monitor
[2023-10-11] MEDS: traMADoL HCL 50 MG TABLET PO (19:20)
--- NOTE | 2023-10-11 19:21 | PC.NURSE ---
pt screaming out in pain, pt stated I want to , I cant take this pain this nurse called provider in the ED to obtain an order to medicate, pt medicated with ultram, will continue to monitor
[2023-10-11] MEDS: Tamsulosin HCL 0.4 MG CAPSULE PO (20:38)
[2023-10-11] MEDS: amLODIPine Besylate 5 MG TABLET PO (20:38)
[2023-10-11] MEDS: QUEtiapine Fumarate 25 MG TABLET 12.5 MG PO (20:39)
[2023-10-11] MEDS: Atorvastatin Calcium 40 MG TABLET PO (20:41)
[2023-10-11] MEDS: Melatonin 3 MG TABLET PO (21:14)
[2023-10-11 22:38] LABS: Glucose, Whole Blood 107 mg/dL (60-115)
[2023-10-11 22:59] VITALS: BP 118/58; PULSE 61; RESP 15; TEMP 36.6; O2SAT 90
[2023-10-12] MEDS: traMADoL HCL 50 MG TABLET PO (04:23)
--- NOTE | 2023-10-12 05:02 | PC.NURSE ---
Patient yelling out in pain. Provider notified and Ultram ordered and administered. Will continue to monitor.
[2023-10-12] MEDS: Omeprazole 20 MG CAPSULE.DR PO (05:44)
[2023-10-12] MEDS: Cyclobenzaprine HCl 10 MG TABLET PO ×2 (05:44→14:12)
[2023-10-12 05:50] VITALS: BP 117/59; PULSE 65; RESP 18; TEMP 36.8; O2SAT 97
[2023-10-12] MEDS: QUEtiapine Fumarate 25 MG TABLET 12.5 MG PO ×2 (05:52→22:39)
[2023-10-12 09:48] VITALS: BP 134/62; PULSE 61; RESP 17; TEMP 35.8; O2SAT 97
[2023-10-12] MEDS: Furosemide 20 MG TABLET PO (09:53)
[2023-10-12] MEDS: Multivitamin TABLET 1 TAB PO (09:53)
[2023-10-12] MEDS: Folic Acid 1 MG TABLET PO (09:53)
[2023-10-12] MEDS: allopurinoL 100 MG TABLET 200 MG PO (09:53)
[2023-10-12] MEDS: Cholecalciferol (Vitamin D3) 25 MCG TABLET 50 MCG PO (09:54)
[2023-10-12] MEDS: Magnesium Oxide 400 MG TABLET PO (09:54)
[2023-10-12] MEDS: Sennosides 8.6 MG TABLET PO (09:54)
[2023-10-12] MEDS: Aspirin 81 MG TAB.CHEW PO (09:54)
[2023-10-12] MEDS: Thiamine HCL 100 MG TABLET PO (09:54)
[2023-10-12] MEDS: Apixaban 2.5 MG TABLET PO ×2 (09:54→22:39)
[2023-10-12] MEDS: Pyridoxine HCl (Vitamin B6) 50 MG TABLET PO (09:55)
[2023-10-12] MEDS: polyethylene glycoL 3350 17 GM POWD.PACK PO ×2 (09:55→22:40)
[2023-10-12] MEDS: Nystatin Powder 15 GM BOTTLE 1 APPL TOPICAL ×2 (09:55→22:40)
--- NOTE | 2023-10-12 10:00 | PC.NURSE ---
PT IS A/O X 2 NO SOB/GUSTAVO NOTED SPEAKS IN FULL SENTENCES. PT HAS A CONGESTED COUGH. LUNGS - CTA. PT C/O KIMBER PLANTAR FEET BURNING AND STATES NO RELIEF FROM FLEXERIL MED GIVEN EARLIER. NO EDEMA NOTED. GOMEZ CATH PATENT& DRAINING.SM AMT OF BLOOD NOTED AT THE TIP OF PENIS/GOMEZ CATH. NO DISTRESS TO GOMEZ CATH NOTED. WILL CONTINUE TO MONITOR.
--- NOTE | 2023-10-12 12:45 | PC.NURSE ---
HCP (MARU) IS AT BEDSIDE
--- NOTE | 2023-10-12 13:33 | PC.NURSE ---
AND DAUGHTER FED PT IS LUNCH PT ATE 70%. AND DAUGHTER HAS LEFT THE BEDSIDE.
--- NOTE | 2023-10-12 13:40 | PC.NURSE ---
CASE MANAGEMENT (YAZMIN) AT BEDSIDE.
[2023-10-12 13:53] VITALS: BP 125/90; PULSE 60; RESP 20; TEMP 36.1; O2SAT 97
[2023-10-12] MEDS: Acetaminophen 325 MG TABLET PO (14:13)
--- NOTE | 2023-10-12 14:20 | PC.NURSE ---
HCP HAS LEFT THE BEDSIDE.
[2023-10-12 15:47] VITALS: BP 132/57; PULSE 60; RESP 16; TEMP 36.6; O2SAT 97
--- NOTE | 2023-10-12 15:48 | MHC.EDTECH ---
This pct assumed care of pt at 1500 ,Covid /flu swab collected and sent to lab ,vitals taken ,pt refused to be reposition ,RN aware ,Pt comfortable ,no apparent distress noted .
[2023-10-12 15:49] LABS: COVID-19 Test Negative (Negative); IDNOW Serial# 9DB6401D; IDNOW Serial# BCCEAD1C; Influenza A Negative (Negative); Influenza B2 Negative (Negative)
--- NOTE | 2023-10-12 16:40 | MHC.CM.ED ---
Patient remains in ER overflow. Met with patient and friend/HCP Arleth. Patient does not want to return to [facility]. At this time, [facility] would not be able to accept patient back. Patient and Arleth aware referral will be broadcasted within 50 miles. Continue to monitor for d/c needs.
--- NOTE | 2023-10-12 17:30 | MHC.EDTECH ---
This pct was feeding Patient a groung diet ,pt was pocketing food ,LAY Mahan aware ,This pct asked Provider to Order a Puree diet ,pt was fed ate 80 % of meal ,drank 120 ml fluids .
--- NOTE | 2023-10-12 17:49 | PC.NURSE ---
PER PCT FOR SUPPER, PT WAS POCKETING HIS FOOD. MLP (ZOFIA) AWARE. PT REFUSED TO SIT IN THE RECLINER FOR SUPPER, ADAMANTLY STATING THAT HE WANTS TO STAY IN BED.
[2023-10-12 21:25] VITALS: BP 132/67; PULSE 62; RESP 16; TEMP 36.1; O2SAT 95
[2023-10-12] MEDS: Tamsulosin HCL 0.4 MG CAPSULE PO (22:39)
[2023-10-12] MEDS: amLODIPine Besylate 5 MG TABLET PO (22:39)
[2023-10-12] MEDS: Atorvastatin Calcium 40 MG TABLET PO (22:39)
--- NOTE | 2023-10-13 00:22 | MHC.EDTECH ---
CARE GIVEN BEDDING CHANGE ,BARRIER CREAM APPLY TO COCCYX AND PATIENT WAS REPOSITION OFF HIS BOTTOM ,PT HAD SIPS OF WATER TO DRINK .
--- NOTE | 2023-10-13 00:28 | PC.NURSE ---
This proposal manager writer assumed care of this Pt at 1900. Pt STANDING ROCK, A&O to self, denies any pain. Pt skin warm and dry, shearing noted to coccyx area, barrier cream applied. Pt repositioned. Pt has a 16F marquez intact drainined dark color urine, dry blood noted near marquez insertion site. Pt medicated per JAN.
--- NOTE | 2023-10-13 03:12 | PC.NURSE ---
Pt appears to be sleeping, equal, non labored respirations, no apparent distress.
[2023-10-13 05:30] VITALS: BP 130/64; PULSE 61; RESP 16; TEMP 36.5; O2SAT 97
--- NOTE | 2023-10-13 05:31 | MHC.EDTECH ---
Patient slept most of the night ,up at 0530 ,vitals taken ,pt comfortable ,marquez empty 450 ml .
[2023-10-13] MEDS: Omeprazole 20 MG CAPSULE.DR PO (06:01)
[2023-10-13 08:08] VITALS: BP 120/66; PULSE 66; RESP 20; O2SAT 96
[2023-10-13] MEDS: Magnesium Oxide 400 MG TABLET PO (08:10)
[2023-10-13] MEDS: Folic Acid 1 MG TABLET PO (08:10)
[2023-10-13] MEDS: Apixaban 2.5 MG TABLET PO ×2 (08:10→21:06)
[2023-10-13] MEDS: allopurinoL 100 MG TABLET 200 MG PO (08:10)
[2023-10-13] MEDS: Furosemide 20 MG TABLET PO (08:10)
[2023-10-13] MEDS: Thiamine HCL 100 MG TABLET PO (08:10)
[2023-10-13] MEDS: polyethylene glycoL 3350 17 GM POWD.PACK PO ×2 (08:10→21:07)
[2023-10-13] MEDS: Aspirin 81 MG TAB.CHEW PO (08:10)
[2023-10-13] MEDS: Pyridoxine HCl (Vitamin B6) 50 MG TABLET PO (08:10)
[2023-10-13] MEDS: Sennosides 8.6 MG TABLET PO (08:10)
[2023-10-13] MEDS: Multivitamin TABLET 1 TAB PO (08:10)
[2023-10-13] MEDS: Cholecalciferol (Vitamin D3) 25 MCG TABLET 50 MCG PO (08:10)
[2023-10-13] MEDS: Nystatin Powder 15 GM BOTTLE 1 APPL TOPICAL ×2 (08:17→21:45)
--- NOTE | 2023-10-13 12:27 | MHC.EDTECH ---
pt was washed up with a complete bed change. pt also used the bathroom with a bedside commode and sat on the recliner for 30min and then wanted to go back to bed.
[2023-10-13] MEDS: Cyclobenzaprine HCl 10 MG TABLET PO ×2 (12:37→23:04)
[2023-10-13] MEDS: Acetaminophen 325 MG TABLET PO ×2 (12:37→21:06)
--- NOTE | 2023-10-13 13:56 | MHC.CM.ED ---
Patient remains in ER overflow. [facility] is the only facility that is able to offer a bed at this time. Spoke with Arleth via telephone at [phone]. Arleth is agreeable if patient is agreeable. Met with patient. Patient agreeable to transfer to [facility]. RN to RN will need to be called to [phone]. Rukhsana HUBER booked for 10/14 at 10am. Patient, Mali Reinoso RN and Laurel GUADALUPE aware. Continue to monitor for d/c needs.
[2023-10-13 14:00] VITALS: BP 123/61; PULSE 61; RESP 20; TEMP 36.9; O2SAT 94
[2023-10-13] MEDS: traMADoL HCL 50 MG TABLET PO (14:48)
[2023-10-13] MEDS: QUEtiapine Fumarate 25 MG TABLET 12.5 MG PO ×2 (15:29→21:05)
[2023-10-13 16:30] VITALS: BP 147/72; PULSE 71; RESP 16; TEMP 36.7; O2SAT 97
--- NOTE | 2023-10-13 16:39 | MHC.EDTECH ---
This pct assumed care of pt ,vitals taken ,Patient was reposition and boosted up in bed .
--- NOTE | 2023-10-13 17:54 | MHC.EDTECH ---
Patient was assisted with dinner ,refused to eat and drink ,had 2 bites of apple sauce and 2 bites of ice cream and sips of water ,RN aware .
--- NOTE | 2023-10-13 19:43 | PC.NURSE ---
Assumed care of PT at 1900. Pt appears to be sleeping at this time. Respirations even and unlabored. Bed alarm on. Christensen patent and draining concentrated urine. Call real within reach. plan of care ongoing.
[2023-10-13] MEDS: Atorvastatin Calcium 40 MG TABLET PO (21:04)
[2023-10-13] MEDS: Tamsulosin HCL 0.4 MG CAPSULE PO (21:04)
[2023-10-13] MEDS: Melatonin 3 MG TABLET PO (21:05)
[2023-10-13] MEDS: amLODIPine Besylate 5 MG TABLET PO (21:05)
[2023-10-13 22:35] VITALS: BP 114/60; PULSE 81; RESP 17; TEMP 36.3; O2SAT 96
--- NOTE | 2023-10-13 23:32 | PC.NURSE ---
PT medicated as per JAN. Allowable ill crushed and put in applesauce. PT took without issue. Pt reported he needed to pass a BM, assisted pt on to bedpan as he reported he was in too much pain to get up on to commode. PT put on bed patton x2- he was unble to void states it was likely gas. PRN medication given for muscle spasm as pt continues to scream out that he is in pain. Call real within reach. Plan of care ongoing.
--- NOTE | 2023-10-14 01:54 | PC.NURSE ---
Hourly rounding completed. PT appears to be sleeping. Respirations even and unlabored. Bed locked in lowest position, bed alarm on, video monitoring on, call real within reach. Plan of care on going
[2023-10-14] MEDS: Omeprazole 20 MG CAPSULE.DR PO (06:03)
--- NOTE | 2023-10-14 06:19 | PC.NURSE ---
Pt medicated as per JAN. Output from marquez 300mls. Call real within reach. Plan of care ongoing.
--- NOTE | 2023-10-14 08:38 | MHC.CM.PN ---
PT BOOKED TO DC TO [facility] TODAY AT 1000 HOURS PER CM NOTES PT AND HCP INFORMED OF DC TIME/PLAN YESTERDAY PT, HIS RN AND HIS PROVIDER AWARE WELL
[2023-10-14] MEDS: Acetaminophen 325 MG TABLET PO (09:40)
[2023-10-14] MEDS: allopurinoL 100 MG TABLET 200 MG PO (09:41)
[2023-10-14] MEDS: Apixaban 2.5 MG TABLET PO (09:41)
[2023-10-14] MEDS: Multivitamin TABLET 1 TAB PO (09:41)
[2023-10-14] MEDS: Cholecalciferol (Vitamin D3) 25 MCG TABLET 50 MCG PO (09:41)
[2023-10-14] MEDS: Thiamine HCL 100 MG TABLET PO (09:41)
[2023-10-14] MEDS: Aspirin 81 MG TAB.CHEW PO (09:41)
[2023-10-14] MEDS: Cyclobenzaprine HCl 10 MG TABLET PO (09:41)
[2023-10-14] MEDS: Magnesium Oxide 400 MG TABLET PO (09:41)
[2023-10-14] MEDS: Furosemide 20 MG TABLET PO (09:42)
[2023-10-14] MEDS: Pyridoxine HCl (Vitamin B6) 50 MG TABLET PO (09:42)
[2023-10-14] MEDS: Folic Acid 1 MG TABLET PO (09:42)
--- NOTE | 2023-10-14 11:22 | PC.NURSE ---
Alert and oriented x2. Incontinent loose stool. Foam dressing d/i to buttocks. right buttock small stage 2. [address] draining yellow urine. Provider instructed to discharge patient with marquez. Reporting 10/10 pain to back. Medicated with flexeril and tylenol prior to discharge. Report called to [facility]. D/C via ambulance @ 1000.
== END 2023-10-14 10:34 | disposition skilled nursing facility (03) ==
PROVIDERS: Physician Assistant; Social Worker; Emergency Provider Emergency Medicine; PCP Family Medicine
DX: R45.851 Suicidal ideations (principal); F05 Delirium due to known physiological condition; I44.7 Left bundle-branch block, unspecified; R45.1 Restlessness and agitation; Z87.891 Personal history of nicotine dependence; Z11.52 Encounter for screening for COVID-19; Z20.822 Contact with and (suspected) exposure to COVID-19; Z79.899 Other long term (current) drug therapy
CPT/HCPCS: 36415; 70450; 71045; 80048; 80053; 81001; 82140; 82947; 85025; 87086; 87502; 87635; 93005; 96372; 99285; J1200; J2060; J2270; J2359; S9485

== ENCOUNTER → 2023-10-05 09:43 | Outpatient (BNV) | payer MEDICARE, SELFPAY | PROVIDERS: Emergency Provider Emergency Medicine; PCP Family Medicine; Visit Provider Social Worker | DX: F05 Delirium due to known physiological condition (principal) | CPT/HCPCS: 99232; 99285 ==